=== PATIENT | male | born 1965 | race Caucasian/White ===

== ENCOUNTER → 2017-07-17 | Outpatient (CLI) | payer MEDICARE, SELFPAY ==
[2017-07-17 07:27] LABS: Absolute Lymphocyte Count 2.51 X10^3/ul (0.83-4.51); Absolute Neutrophil Count 1.5 X10^3/uL (2.0-7.7); Basophil# 0.02 X10^3/uL; Basophil% 0.4 % (0-1); Eosinophil# 0.19 X10^3/uL; Eosinophils% 4.1 % (0-5); Hematocrit 40.4 % (40-54); Hemoglobin 14.1 g/dl (13.0-16.5); Lymphocyte # 2.51 X10^3/ul (4.0); Lymphocyte % 53.9 % (19-41); Mean Corp Hgb Conc 34.9 g/gl (32-36); Mean Corpuscular Hgb 35.3 pg (27.0-32.0); Mean Platelet Vol. 10.1 fl (6.2-12.0); Monocyte# 0.46 X10^3/uL; Monocyte% 9.9 % (0-10); Neutrophil # 1.47 X10^3/uL (2.7-7.7); Neutrophil % 31.5 % (47-70); Platelet Count 190 K/mm3 (150-450); RBC Distribution Width CV 12.6 % (11.6-14.6); RBC Distribution Width SD 45.7 fl (35.1-43.9); White Blood Count 4.7 K/mm3 (4.4-11.0)
[2017-07-17 07:30] LABS: POSITIVE COUNT NO; POSITIVE DIFFERENTIAL NO; POSITIVE MORPHOLOGY NO
[2017-07-17 07:40] LABS: Carbamazepine (Tegretol) 8.9 ug/mL (4.0-12.0)
[2017-07-17 07:49] LABS: ALB/GLOB Ratio 1.3 RATIO (0.9-2.4); AST(SGOT) 21 U/L (15-37); Alanine Aminotransfer ALT/SGPT 24 U/L (16-61); Albumin, Serum 3.8 g/dL (3.2-5.0); Alkaline Phosphatase 70 U/L (45-117); Anion Gap 6 (5-15); BUN 20 mg/dL (7-18); BUN/Creat Ratio 14.9 RATIO (10-20); Calcium,Total 8.4 mg/dL (8.5-10.1); Chloride 107 mmol/L (98-107); Cholesterol 235 mg/dL (200); Creatinine, Serum 1.34 mg/dL (0.70-1.30); EST Glomerular Filtration Rate 59 mL/min (>60); Est Glom Filt Rate - Afr Amer 71 mL/min (>60); Glucose 106 mg/dL (74-106); High Density Lipoprotein 39 mg/dL; Potassium 3.8 mmol/L (3.5-5.1); Protein, Total 6.8 g/dL (6.4-8.2); Sodium Level 141 mmol/L (136-145); T4 Total, Thyroxin 3.7 ug/dL (4.5-12.1); Thyroid Stim Hormone (TSH) 3.41 uIU/mL (0.358-3.74); Triglycerides 309 mg/dL; Very Low Density Lipoprotein 62 mg/dL (5-40)
[2017-07-17 08:59] LABS: Hemoglobin A1c 5.4 % (4.2-6.3)
[2017-07-18 09:43] LABS: T3 Total - Triiodothyronine 0.72 ng/mL (0.6-1.81)
== END | disposition home or self-care (01) ==
LOC: LAB 06:23
DX: Z79.899 Other long term (current) drug therapy (principal)
CPT/HCPCS: 36415; 80053; 80061; 80156; 83036; 84436; 84443; 84480; 85025

== ENCOUNTER → 2017-11-07 08:02 | Outpatient (CLI) | payer MEDICARE, SELFPAY ==
[2017-11-07 08:35] LABS: Absolute Neutrophil Count 1.5 X10^3/uL (2.0-7.7); Basophil# 0.03 X10^3/uL; Basophil% 0.6 % (0-1); Eosinophil# 0.21 X10^3/uL; Eosinophils% 4.4 % (0-5); Hematocrit 41.5 % (40-54); Hemoglobin 14.4 g/dl (13.0-16.5); Lymphocyte % 50.6 % (19-41); Mean Corp Hgb Conc 34.7 g/gl (32-36); Mean Corpuscular Hgb 35.1 pg (27.0-32.0); Mean Corpuscular Volume 101.2 fL (80-94); Mean Platelet Vol. 9.9 fl (6.2-12.0); Monocyte# 0.62 X10^3/uL; Monocyte% 13.1 % (0-10); Neutrophil # 1.48 X10^3/uL (2.7-7.7); Neutrophil % 31.3 % (47-70); POSITIVE COUNT NO; POSITIVE DIFFERENTIAL NO; POSITIVE MORPHOLOGY NO; Platelet Count 176 K/mm3 (150-450); RBC Distribution Width CV 12.9 % (11.6-14.6); RBC Distribution Width SD 47.6 fl (35.1-43.9); White Blood Count 4.7 K/mm3 (4.4-11.0)
[2017-11-07 09:00] LABS: ALB/GLOB Ratio 1.2 RATIO (0.9-2.4); AST(SGOT) 19 U/L (15-37); Alanine Aminotransfer ALT/SGPT 29 U/L (16-61); Albumin, Serum 3.9 g/dL (3.2-5.0); Alkaline Phosphatase 82 U/L (45-117); Anion Gap 6 (5-15); BUN 19 mg/dL (7-18); BUN/Creat Ratio 13.1 RATIO (10-20); Calcium,Total 9.1 mg/dL (8.5-10.1); Chloride 106 mmol/L (98-107); Cholesterol 235 mg/dL (200); Creatinine, Serum 1.45 mg/dL (0.70-1.30); EST Glomerular Filtration Rate 54 mL/min (>60); Est Glom Filt Rate - Afr Amer 65 mL/min (>60); Globulin 3.2 g/dL (2.2-4.2); Glucose 116 mg/dL (74-106); High Density Lipoprotein 36 mg/dL; Potassium 4.4 mmol/L (3.5-5.1); Protein, Total 7.1 g/dL (6.4-8.2); Sodium Level 144 mmol/L (136-145); Triglycerides 362 mg/dL; Very Low Density Lipoprotein 72 mg/dL (5-40)
[2017-11-07 09:06] LABS: Carbamazepine (Tegretol) 9.6 ug/mL (4.0-12.0)
[2017-11-07 09:22] LABS: Hemoglobin A1c 5.5 % (4.2-6.3)
== END ==
DX: Z79.899 Other long term (current) drug therapy (principal)
CPT/HCPCS: 36415; 80053; 80061; 80156; 83036; 85025

== ENCOUNTER → 2018-01-02 09:51 | Outpatient (CLI) | payer MEDICARE, SELFPAY ==
[2018-01-02 10:47] LABS: Absolute Lymphocyte Count 1.99 X10^3/ul (0.83-4.51); Absolute Neutrophil Count 1.2 X10^3/uL (2.0-7.7); Basophil# 0.02 X10^3/uL; Basophil% 0.5 % (0-1); Eosinophil# 0.12 X10^3/uL; Eosinophils% 3.2 % (0-5); Hematocrit 41.4 % (40-54); Hemoglobin 14.5 g/dl (13.0-16.5); Lymphocyte # 1.99 X10^3/ul (4.0); Lymphocyte % 52.9 % (19-41); Mean Corpuscular Hgb 35.4 pg (27.0-32.0); Mean Platelet Vol. 9.9 fl (6.2-12.0); Monocyte# 0.38 X10^3/uL; Monocyte% 10.1 % (0-10); Neutrophil # 1.24 X10^3/uL (2.7-7.7); Platelet Count 186 K/mm3 (150-450); RBC Distribution Width CV 12.4 % (11.6-14.6); RBC Distribution Width SD 45.1 fl (35.1-43.9); White Blood Count 3.8 K/mm3 (4.4-11.0)
[2018-01-02 10:48] LABS: POSITIVE COUNT NO; POSITIVE DIFFERENTIAL NO; POSITIVE MORPHOLOGY NO
[2018-01-02 11:25] LABS: Carbamazepine (Tegretol) 8.5 ug/mL (4.0-12.0)
[2018-01-02 11:37] LABS: ALB/GLOB Ratio 1.3 RATIO (0.9-2.4); AST(SGOT) 23 U/L (15-37); Alanine Aminotransfer ALT/SGPT 28 U/L (16-61); Albumin, Serum 3.9 g/dL (3.2-5.0); Alkaline Phosphatase 75 U/L (45-117); Anion Gap 8 (5-15); BUN 18 mg/dL (7-18); BUN/Creat Ratio 13.4 RATIO (10-20); Calcium,Total 9.2 mg/dL (8.5-10.1); Chloride 105 mmol/L (98-107); Creatinine, Serum 1.34 mg/dL (0.70-1.30); EST Glomerular Filtration Rate 59 mL/min (>60); Est Glom Filt Rate - Afr Amer 71 mL/min (>60); Globulin 3.1 g/dL (2.2-4.2); Glucose 106 mg/dL (74-106); Potassium 4.2 mmol/L (3.5-5.1); Sodium Level 142 mmol/L (136-145)
== END ==
PROVIDERS: Family Provider Family Medicine; PCP Family Medicine
DX: Z79.899 Other long term (current) drug therapy (principal)
CPT/HCPCS: 36415; 80053; 80156; 85025

== ENCOUNTER 2020-07-13 11:02 | Outpatient (RCR) | payer MEDICARE, SELFPAY ==
[2016-05-08 12:55] VITALS: BMI 33.1
[2020-07-13] MEDS: COVID-19 VACC, MRNA(PFIZER)/PF 30 MCG/0.3 ML SYRINGE IM (09:31)
[2020-08-03] MEDS: COVID-19 VACC, MRNA(PFIZER)/PF 30 MCG/0.3 ML SYRINGE IM (09:14)
== END 2020-07-13 23:59 ==
LOC: IMMUN 11:02
PROVIDERS: PCP Family Medicine; Visit Provider Family Medicine
DX: Z23 Encounter for immunization (principal)
CPT/HCPCS: 0001A; 0002A; 91300

== ENCOUNTER 2021-12-13 13:32 | Emergency (ER) | payer MEDICARE, MEDICAID, SELFPAY ==
[2021-12-13 13:33] VITALS: BP 137/94; PULSE 88; RESP 16; TEMP 36.2; O2SAT 96; BMI 34.2
--- NOTE | 2021-12-13 13:57 | CT_ITS ---
STUDY: CT ABDOMEN AND PELVIS WITHOUT CONTRAST REASON FOR EXAM: Male, 56 years old. Vomiting and generalized abdominal pain. RADIATION DOSAGE (If Supplied By Facility): CTDIvol = ( 20.09 ) mGy, DLP = ( 1154.60 ) mGycm TECHNIQUE: Transaxial images were obtained from the dome of the diaphragm to the symphysis pubis without oral contrast, and without intravenous contrast. Sagittal and coronal images were reconstructed. Individualized dose optimization techniques were used for this CT. COMPARISON: None. FINDINGS: The visualized lung bases are unremarkable. The visualized portions of the heart are within normal limits. There is decreased attenuation of the liver consistent with steatosis. There are multiple small gallstones. Normal spleen. Normal pancreas. Normal bilateral adrenal glands. Normal right kidney. Normal left kidney. There is a small hiatal hernia. Large amount of fluid is seen within the stomach. Hypodensity medication tablets are seen within the distal stomach. Normal small intestine. Normal colon. The appendix is visualized and appears normal. Normal abdominal aorta. Normal inferior vena cava. Normal retroperitoneum. Mild diffuse bladder wall thickening. There are prostatic calcifications. There is a right-sided inguinal hernia containing adipose tissue. Disc space narrowing and degeneration with spondylosis at the L4-L5 and L5-S1 levels. Loss of the normal lumbar lordosis. CT/Abdomen/Pelvis without Cont IMPRESSION: Multiple small gallstones within the gallbladder lumen. Fatty infiltration of the liver. Large amount of fluid is seen within the gastric lumen. Electronically Signed: Darvin Steve MD at 14:45 EDT ,
--- NOTE | 2021-12-13 13:58 | ED.VIS.GI ---
HPI HPI - GI History of Present Illness Chief Complaint: Abd Pain Detail of Chief Complaint: Abdominal pain that started around noon today Informant: patient Abdominal Pain/Flank Pain Current Severity: 5/10 Narrative Narrative: Patient presents the emergency department complaint of abdominal pain us around noon today. Patient states pain came on suddenly and was in the mid abdomen and diffusely about the entire abdomen. He had 1 episode of nausea and vomiting but currently does not feel nauseated. His last bowel movement was approximately noon and it was formed stool. He denies any blood in the stool. He denies any fevers. He denies urinary symptoms. Pain was a 10 out of 10 but currently a 5 out of 10. He is never had pain like this before. Patient has had prior appendectomy. Prior similar symptoms: No PFSH PFS Medical History (Updated 12/13/21 @ 16:[address] Jie Coffman, DO) Bipolar 1 disorder Chronic kidney disease High cholesterol HTN (hypertension) Home Medications carbamazepine 300 mg capsule,extended release [id number] 300 mg PO BID 05/08/16 [History Last Taken 05/08/16] clonazepam 1 mg tablet 1 mg PO 4X/DAY 05/08/16 [History Last Taken 05/08/16] duloxetine 60 mg capsule,delayed release 60 mg PO BID 05/08/16 [History Last Taken 05/08/16] econazole 1 % topical cream 1 applic topical DAILY 05/08/16 [History Last Taken Unknown] fenofibrate nanocrystallized 48 mg tablet 48 mg PO DAILY 05/08/16 [History Last Taken 05/08/16] lamotrigine 200 mg tablet,extended release 24 hr (Lamictal XR) 200 mg PO DAILY 05/08/16 [History Last Taken 05/08/16] olanzapine 15 mg disintegrating tablet 15 mg PO DAILY 05/08/16 [History Last Taken 05/08/16] omeprazole 20 mg capsule,delayed release 20 mg PO DAILY 05/08/16 [History Last Taken 05/08/16] prednisone 20 mg tablet 60 mg PO DAILY ##15 05/08/16 [Rx Last Taken Unknown] simvastatin 20 mg tablet 20 mg PO QHS 05/08/16 [History Last Taken 05/07/16] venlafaxine 150 mg tablet,extended release 24 hr 150 mg PO DAILY 05/08/16 [History Last Taken 05/08/16] zolpidem 10 mg tablet (Ambien) 10 mg PO QHS 05/08/16 [History Last Taken 05/07/16] Allergy/AdvReac Type Severity Reaction Status Date / Time bupropion [From Wellbutrin] Allergy Other Verified 12/13/21 13:33 clarithromycin [From Biaxin] Allergy Other Verified 12/13/21 13:33 divalproex sodium Allergy Other Verified 12/13/21 13:33 [From Depakote] econazole [From Spectazole] Allergy Other Verified 12/13/21 13:33 fluoxetine [From Prozac] Allergy Other Verified 12/13/21 13:33 ibuprofen AdvReac Nausea/Vom/ Verified 12/13/21 13:33 Diarrhea Social History Smoking Status: Never smoker ROS ROS ED Review of Systems ROS Unobtainable: other Constitutional Constitutional ED: Reports lethargy; Denies chills, fever(s), sweats or weight loss Eyes Eyes: Denies blurry vision, change in vision or diplopia ENT ENT ED: Denies rhinorrhea or sore throat Cardiovascular Cardiovascular: Denies chest pain, orthopnea or racing heartbeat Respiratory/Chest Respiratory/Chest: Reports dyspnea and dyspnea on exertion; Denies cough, orthopnea or sputum Gastrointestinal Gastrointestinal: Reports abdominal pain, nausea and vomiting; Denies diarrhea Genitourinary Genitourinary ED: Denies dysuria, hematuria or urinary frequency Musculoskeletal Musculoskeletal: Denies arthralgias, back pain, myalgias or neck pain Integumentary Denies abscess, Abrasions or rash Neurologic Neurologic: Denies headache(s) or weakness Psychiatric Psychiatric: Denies anxiety, depression or suicidal thoughts Endocrine Endocrinology: Denies polydipsia, polyphagia or polyuria Hematologic/Lymphatic Hematologic/Lymphatic: Denies easy bleeding, easy bruising or lymphadenopathy Allergic/Immunologic Allergic/Immunologic ED: Denies mouth swelling, tongue swelling or urticaria EXAM Physical Exam Const Vital Signs: 12/13/21 13:33 Temperature 97.2 F L Temperature Source Temporal Pulse Rate 88 Respiratory Rate 16 Blood Pressure 137/94 H Blood Pressure Mean 108 Pulse Ox 96 Oxygen Delivery Method Room Air Positive well nourished and well developed General Appearance ED: well developed and NAD HEENT Reports TM's clear and moist mucous membranes normocephalic and atraumatic; Negative for trauma or tenderness Tympanic Membrane ED: Yes TM's clear Eyes PERRL and EOMs intact bilaterally General Eye ED: Negative for pale conjunctiva or scleral icterus Neck no lymphadenopathy, supple and no JVD General: Negative for tenderness Chest Wall inspection of chest normal and palpation of chest normal Chest: Negative for tenderness Resp normal respiratory effort and clear to auscultation bilaterally Effort and Inspection: Negative for respiratory distress or pain with movement Auscultation: Negative for rhonchi, wheezes or diminished lung sounds Cardio regular rate, regular rhythm, S1 normal heart sound, S2 normal heart sound and no murmurs Peripheral Pulses: pulses 2+ throughout GI normal to inspection, nondistended, normoactive bowel sounds, soft to palpation, non-distended and no masses GI Narrative: Mild diffuse tenderness. There is no rebound, rigidity, or peritoneal signs. Back/Spine no CVA tenderness and no thoracic nor lumbar tenderness Extremity normal to inspection General Extremety ED: Negative for edema General Extremity: Negative for edema Neuro oriented x3, CN's II-XII intact bilaterally, no sensory deficits noted and gait normal Sensorium / Orientation: awake, alert, oriented to person, oriented to place and oriented to time Motor Exam: strength 5/5 throughout and strength abnormal Psych mental status grossly normal Skin no rashes or lesions noted and no wounds MDM MDM MDM Narrative Medical decision making narrative: IV line established on arrival. Patient had no desire for pain medication or nausea medicine. Lab work-up showed a normal white count. His AST and ALT were slightly elevated however he had a normal alk phos level. Lactate was normal. Lipase was elevated at 821. Patient had a CT scan of the abdomen pelvis that showed gallstones and may be a pill fragment within the stomach itself. Patient had a gallbladder ultrasound that showed a normal thickness of the gallbladder wall and normal common bile duct. He had multiple small gallstones. There was trace pericholecystic fluid. Patient's pain mostly resolved. On exam he really has minimal discomfort. I discussed case with general surgeon on-call Dr. Weber who felt patient could follow-up as an outpatient with their office. I did advise patient to return if worsening pain, fever, vomiting, or condition should worsen anyway. Lab Data Attestation: I reviewed the patient's lab results. Labs: Laboratory Results - last 24 hr 12/13/21 12/13/21 12/13/21 14:15 14:15 14:15 WBC 6.5 RBC 3.61 L Hgb 13.3 Hct 36.9 L MCV 102.2 H MCH 36.8 H MCHC 36.0 RDW Std Deviation 46.6 H RDW Coeff of Mt 12.5 Plt Count 181 MPV 9.7 Immature Gran % (Auto) 0.500 Neut % (Auto) 60.8 Lymph % (Auto) 25.1 Crowley % (Auto) 11.3 H Eos % (Auto) 1.8 Baso % (Auto) 0.5 Absolute Neuts (auto) 4.0 Absolute Lymphs (auto) 1.64 Nucleated RBC % 0 Sodium 137 Potassium 4.1 Chloride 104 Carbon Dioxide 29.0 Anion Gap 4 L BUN 19 H Creatinine 1.38 H Estim Creat Clear Calc 67.84 Est GFR (MDRD) Af Amer 68 Est GFR (MDRD) Non-Af 56 L BUN/Creatinine Ratio 13.8 Glucose 112 H Lactic Acid 0.9 Calcium 8.9 Total Bilirubin 0.70 AST 177 H ALT 119 H Alkaline Phosphatase 103 Total Protein 6.5 Albumin 3.5 Globulin 3.0 Albumin/Globulin Ratio 1.2 Lipase 821 H Radiography Diagnostic Testing: Clinical Impression(s) from Imaging Studies Abdomen/Pelvis CT 12/13/21 13:57 IMPRESSION: Multiple small gallstones within the gallbladder lumen. Fatty infiltration of the liver. Large amount of fluid is seen within the gastric lumen. Electronically Signed: Darvin Steve MD at 14:45 EDT , Gallbladder Ultrasound 12/13/21 14:51 IMPRESSION: Multiple small gallstones. Trace amount of pericholecystic fluid. Fatty infiltration of the liver. Electronically Signed: Darvin Steve MD at 15:49 EDT , Discharge Plan Triage Chief Complaint: Abd Pain ED Provider: Jie Coffman Dx/Rx/DC Orders Clinical Impression: Abdominal pain, Cholelithiasis Instructions: ED Gallstones with Biliary Colic, ED Abdominal Pain Unkn Cause Male... Prescriptions: No Action prednisone 20 MG tablet 60 mg PO DAILY Qty: 15 0RF clonazepam 1 MG tablet 1 mg PO 4X/DAY econazole 1 APPLIC Tube 1 applic topical DAILY simvastatin 20 MG tablet 20 mg PO QHS omeprazole 20 MG capsule 20 mg PO DAILY olanzapine 15 MG Tab.Rapdis 15 mg PO DAILY zolpidem [Ambien] 10 MG tablet 10 mg PO QHS duloxetine 60 MG Capsule.Dr 60 mg PO BID carbamazepine 300 MG Cpmp.12hr 300 mg PO BID fenofibrate nanocrystallized 48 MG tablet 48 mg PO DAILY venlafaxine 150 MG Tab.Er.24 150 mg PO DAILY lamotrigine [Lamictal XR] 200 MG Tab.Er.24 200 mg PO DAILY Primary Care Provider: Jose R Hill Referrals: Jose R Hill MD [Primary Care Provider] - Felipe Weber MD [Med Staff - Active Staff] - 3-5 Days Disposition Disposition: Home, Self Care
[2021-12-13] MEDS: 0.9% Normal Saline 1,000 ML 125 ML IV (14:13)
[2021-12-13 14:24] LABS: Absolute Lymphocyte Count 1.64 X10^3/uL (0.83-4.51); Basophil# 0.03 X10^3/uL; Basophil% 0.5 % (0-1); Eosinophil# 0.12 X10^3/uL; Eosinophils% 1.8 % (0-5); Hematocrit 36.9 % (40-54); Hemoglobin 13.3 g/dL (13.0-16.5); Lymphocyte # 1.64 X10^3/ul (0.83-4.51); Lymphocyte % 25.1 % (19-41); Mean Corpuscular Hgb 36.8 pg (27.0-32.0); Mean Corpuscular Volume 102.2 fL (80-94); Mean Platelet Vol. 9.7 fl (6.2-12.0); Monocyte# 0.74 X10^3/uL; Monocyte% 11.3 % (0-10); NRBC Flagged by Analyzer 0 % (0-5); Neutrophil # 3.98 X10^3/uL (2.7-7.7); Neutrophil % 60.8 % (47-70); Platelet Count 181 K/mm3 (150-450); RBC Distribution Width CV 12.5 % (11.6-14.6); RBC Distribution Width SD 46.6 fl (35.1-43.9); Red Blood Count 3.61 M/mm3 (4.6-6.2); White Blood Count 6.5 K/mm3 (4.4-11.0)
[2021-12-13 14:40] LABS: ALB/GLOB Ratio 1.2 RATIO (0.9-2.4); AST(SGOT) 177 U/L (15-37); Alanine Aminotransfer ALT/SGPT 119 U/L (16-61); Albumin, Serum 3.5 g/dL (3.2-5.0); Alkaline Phosphatase 103 U/L (45-117); Anion Gap 4 (5-15); BUN 19 mg/dL (7-18); BUN/Creat Ratio 13.8 RATIO (10-20); Calcium,Total 8.9 mg/dL (8.5-10.1); Chloride 104 mmol/L (98-107); Creatinine, Serum 1.38 mg/dL (0.70-1.30); EST Glomerular Filtration Rate 56 mL/min (>60); Est Glom Filt Rate - Afr Amer 68 mL/min (>60); Estimated Creatinine Clearance 67.84 ml/min; Glucose 112 mg/dL (74-106); Lipase 821 U/L (73-393); Potassium 4.1 mmol/L (3.5-5.1); Protein, Total 6.5 g/dL (6.4-8.2); Sodium Level 137 mmol/L (136-145)
[2021-12-13 14:47] LABS: Lactic Acid 0.9 mmol/L (0.4-1.9)
--- NOTE | 2021-12-13 14:51 | US_ITS ---
STUDY: ABDOMINAL ULTRASOUND - RIGHT UPPER QUADRANT REASON FOR VISIT: Male, 56 years old abdominal pain TECHNIQUE: Ultrasound evaluation of the right upper quadrant was performed with real-time and static de los santos-scale imaging. TECHNICAL QUALITY: Adequate. COMPARISON: Comparison is made with prior CT scan abdomen and pelvis done earlier today. FINDINGS: Liver: The liver measures 16.7 cm. There is increased echogenicity consistent with fatty infiltration. The bile ducts are within normal limits. There is hepatic color flow. The direction of portal flow is hepatopetal. There is no demonstrated mass lesion. Gallbladder: Normal distended gallbladder. The gallbladder wall measures 3 mm. There is a negative sonographic Teixeira''s sign. There is a small amount of pericholecystic fluid. There are multiple echogenic structures within the gallbladder, consistent with multiple gallstones. Common Bile Duct (C.B.D.): The common bile duct measures 3. mm. Pancreas: Normal size of the head, body and tail of the pancreas. There is normal echogenicity of the pancreas. There is no demonstrated pancreatic mass or cyst. Right Kidney: Normal size of the right kidney. The right kidney measures 11.3 cm x 6.1 cm x 5.1 cm. Normal renal cortex. The right cortex measures 1.5 cm. There is no demonstrated renal mass or cyst. There is no right hydronephrosis. US/Gallbladder IMPRESSION: Multiple small gallstones. Trace amount of pericholecystic fluid. Fatty infiltration of the liver. Electronically Signed: Darvin Steve MD at 15:49 EDT ,
[2021-12-13 16:16] VITALS: BP 138/94
== END 2021-12-13 16:17 | disposition home or self-care (01) ==
PROVIDERS: Emergency Provider Emergency Medicine; PCP Family Medicine; Visit Provider Emergency Medicine
DX: K80.20 Calculus of gallbladder without cholecystitis without obstruction (principal); N18.9 Chronic kidney disease, unspecified; I12.9 Hypertensive chronic kidney disease with stage 1 through stage 4 chronic kidney disease, or unspecified chronic kidney disease; E78.00 Pure hypercholesterolemia, unspecified; Z90.49 Acquired absence of other specified parts of digestive tract; Z79.899 Other long term (current) drug therapy
CPT/HCPCS: 74176; 76705; 80053; 83605; 83690; 85025; 96360; 96361; 99282; J7030; A4216

== ENCOUNTER → 2021-12-19 | Outpatient (CLI) | payer MEDICARE, MEDICAID, SELFPAY ==
[2021-12-19 14:19] LABS: AST(SGOT) 31 U/L (15-37); Alanine Aminotransfer ALT/SGPT 85 U/L (16-61); Albumin, Serum 3.7 g/dL (3.2-5.0); Alkaline Phosphatase 105 U/L (45-117); Bilirubin, Direct 0.13 mg/dL (0.00-0.30); Globulin 3.1 g/dL (2.2-4.2); Lipase 222 U/L (73-393); Protein, Total 6.8 g/dL (6.4-8.2)
== END | disposition home or self-care (01) ==
LOC: PAVLAB 13:44
PROVIDERS: PCP Family Medicine; Referring Provider Surgery; Visit Provider Surgery
DX: R74.8 Abnormal levels of other serum enzymes (principal); R94.5 Abnormal results of liver function studies
CPT/HCPCS: 36415; 80076; 83690

== ENCOUNTER 2022-01-04 05:48 | Day surgery (SDC) | payer MEDICARE, MEDICAID, SELFPAY ==
[2022-01-04] VITALS (8 sets, daily range): BP systolic 120–145; BP diastolic 81–94; PULSE 68–86; RESP 16; TEMP 36.6–37; O2SAT 92–98; BMI 31.1
--- NOTE | 2022-01-04 06:12 | EKG12_ITS ---
Test Reason : PRE-OP Blood Pressure : / mmHG Vent. Rate : 065 BPM Atrial Rate : 065 BPM P-R Int : 208 ms QRS Dur : 108 ms QT Int : 392 ms P-R-T Axes : 046 076 058 degrees QTc Int : 407 ms Normal sinus rhythm Incomplete left bundle branch block Borderline ECG No previous ECGs available Confirmed by CLAUDIA SINGH, EAMON ([id number]), makeup editor YESI CORREIA ([id number]) on 01/11/2022 12:44:15 PM Referred By: Julieta Escobar Confirmed By:EAMON TAYLOR MD
[2022-01-04] MEDS: Lactated Ringers 1,000 ML 15 ML IV ×2 (06:15→08:46)
--- NOTE | 2022-01-04 07:18 | PCM.HP.BLA ---
History and Physical Date of Admission: 01/04/22 Date of Service:? 12/19/21 MR#: [id number] Acct: [id number] Name:LIONEL HATHAWAY Rep #: [id number] : 1965 ? ? Provider: Dr. Julieta Escobar MD Age/Sex:? 56/M ? ? Location: [facility] Status: Signed Intake Vital Signs ? 12/13/2212:33 12/19/2212:27 Height 6 ft 2 in 6 ft 2 in Weight: 266 lb 12.149 oz 262 lb BMI 34.2 33.6 BP 137/94 H 118/80 Blood Pressure Location ? Rt brachial Position ? Sitting Respiration 16 16 Pulse 88 56 L Pulse Source ? Monitor Temp 97.2 F L 97.5 F L Temp Source Temporal Temporal Pulse Oximetry (%) 96 96 Oxygen Delivery Method ? room air Intake Visit Reasons:?GALLSTONES Chief Complaint: gallstones Tableau Analyst Required: No Is patient in pain?: No Allergies bupropion [From Wellbutrin] Allergy (Verified 12/19/21 13:28) Otherclarithromycin [From Biaxin] Allergy (Verified 12/19/21 13:28) Otherdivalproex sodium [From Depakote] Allergy (Verified 12/19/21 13:28) Othereconazole [From Spectazole] Allergy (Verified 12/19/21 13:28) Otherfluoxetine [From Prozac] Allergy (Verified 12/19/21 13:28) Otheribuprofen Adverse Reaction (Verified 12/19/21 13:28) Nausea/Vom/Diarrhea Medications carbamazepine 300 mg capsule,extended release [id number] 300 mg PO BID 05/08/16 [History Confirmed 12/19/21] clonazepam 1 mg tablet 1 mg PO 4X/DAY 05/08/16 [History Confirmed 12/19/21] duloxetine 60 mg capsule,delayed release 60 mg PO BID 05/08/16 [History Confirmed 12/19/21] econazole 1 % topical cream 1 applic topical DAILY 05/08/16 [History Confirmed 12/19/21] fenofibrate nanocrystallized 48 mg tablet 48 mg PO DAILY 05/08/16 [History Confirmed 12/19/21] lamotrigine 200 mg tablet,extended release 24 hr (Lamictal XR) 200 mg PO DAILY 05/08/16 [History Confirmed 12/19/21] olanzapine 15 mg disintegrating tablet 15 mg PO DAILY 05/08/16 [History Confirmed 12/19/21] omeprazole 20 mg capsule,delayed release 20 mg PO DAILY 05/08/16 [History Confirmed 12/19/21] prednisone 20 mg tablet 60 mg PO DAILY #15 TABLETS 05/08/16 [Rx Confirmed 12/19/21] simvastatin 20 mg tablet 20 mg PO QHS 05/08/16 [History Confirmed 12/19/21] venlafaxine 150 mg tablet,extended release 24 hr 150 mg PO DAILY 05/08/16 [History Confirmed 12/19/21] zolpidem 10 mg tablet (Ambien) 10 mg PO QHS 05/08/16 [History Confirmed 12/19/21] PFSH Medical History?(Updated 12/21/21 @ 00:02 by Duke Banks) Bipolar 1 disorder Chronic kidney disease High cholesterol HTN (hypertension) Surgical History?(Updated 12/19/21 @ 13:25 by Ruby Madison) S/P appendectomy Family History?(Updated 12/19/21 @ 13:26 by Ruby Madison) Father Cancer ?? ? prostate cancer, skin cancer HypertensionMother DiabetesSister Kidney disease Seizures Social History?(Updated 12/19/21 @ 13:27 by Ruby Madison) Smoking Status:? Never smoker alcohol intake:? never substance use type:? does not use HPI HPI HPI: LIONEL SOTO, is a 56 M who presents to the office today for pain/cholelithiasis, elevated liver function/lipase.? Patient was seen in the ER at that time he did have some elevation of LFTs and lipase patient's pain did resolve patient's ultrasound of the gallbladder showed normal wall, gallstones, normal common bile duct, no pericholecystic fluid.? Patient's white blood count is within normal limits with no shift.? Patient's pain did improve while in the ER.? Patient states he has not had previous pain like that again.? He states he may occasionally get some sharp abdominal pain but he points to more of the lower abdomen and does not really related to eating.? Patient has been able to eat a normal diet states that today he had [employer] mae double cheeseburger and onion rings without any increased discomfort.? Patient does have reflux disease on medications for which is controlled. ROS General General: Yes fatigue; No weight change, appetite, colon cancer or breast cancer HEENT HEENT: No difficulty swallowing, eye injury, eye surgery, swollen glands or hoarseness Endo Endocrine: No thyroid disease, diabetes mellitus, thyroid cancer, Hair loss, heat intolerance or cold intolerance Skin Skin: No rash or changing moles Musc Musculoskeletal: Yes arthritis; No back problems, rheumatoid arthritis, gout or joint pain Cardio Cardiovascular: Yes high blood pressure; No murmur, pacemaker, heart disease, atrial fibrillation, heart attack, heart stent, palpitations, shortness of breat with exertion or chest pain Psych Psychiatric: Yes depression and anxiety; No hearing voices Additional Details: bi-polar Resp Respiratory: No shortness of breath, No sleep apnea, Yes cough, No COPD, No asthma, No emphysema and No wheezing Gastro Gastrointestinal: Yes abdominal pain, Yes nausea or vomiting, No diarrhea, Yes constipation, No blood in stool, No acid reflux, Yes hemorrhoids, No ulcers, Yes gallbladder problem and No black,tarry stools Vel Hematologic: No blood thinners, No blood disorders, No bleeding, Yes anemia and No blood clots Neuro Neurologic: No numbness and No tingling Exam Const General: cooperative, healthy appearing and no acute distress [facility] Head: normal to inspection Resp Effort & Inspection: normal respiratory effort Cardio Rate: regular rate GI Inspection: non-distended Palpation: soft, no guarding, no hernias and nontender Skin General: no rashes or lesions noted Neuro General: patient oriented x3 Extrem General: no clubbing, cyanosis or edema Psych Affect: normal affect Assessment and Plan Assessment and Plan (1) Cholelithiasis: ?Status:?Inactive (2) Abdominal pain: ?Status:?Inactive (3) Elevated LFTs: ?Status:?Acute (4) Elevated lipase: ?Status:?Acute ? ? ? Orders: Orders Lipase 12/19/21 R74.8 - Abnormal levels of other serum enzymes, R79.89 - Other specified abnormal findings of blood chemistry ? Liver Profile 12/19/21 R79.89 - Other specified abnormal findings of blood chemistry ? Plan Reviewed CT and ultrasound with the patient.? When patient was ER he did have elevated AST and ALT along with elevated lipase.? Patient's pain did improve in the ER and patient was sent home.? This is suspicious for choledocholithiasis which passed on its own.? Gallbladder ultrasound does show multiple gallstones.? We will recheck lipase and liver profile to help with timing of laparoscopic cholecystectomy.? Encourage patient to avoid fatty greasy foods. Reviewed the anatomy with the patient and discussed the procedure: laparoscopic cholecystectomy with possible cholangiograms, possible open. Review risks including but not limited to bleeding, infection, hernia, bile leak, retained gallstones requiring another procedure ERCP- Endoscopic Retrograde Cholangiopancreatography, injury to another organ (bile ducts, common bile duct, small bowel, etc.) and conversion to an open procedure. All questions were answered. Julieta Escobar M.D. Pager: [phone] [facility] [address] [place] [address], [address] [place] [address] Office: [phone] Coding Level of Care Code Off vis,new,level 3 Diagnoses Cholelithiasis? K80.20 Abdominal pain? R10.9 Elevated LFTs? R79.89 Elevated lipase? R74.8 12/21/21 1241 <Electronically signed by Julieta Escobar MD> Date Julieta Escobar MD
--- NOTE | 2022-01-04 07:30 | GALL_PTH ---
PATIENT: LIONEL SOTO LOC: [facility] [place] U#:[id number] AGE/SX: 56/M ROOM: RE01/04/[address]: Dr. Julieta Escobar MD : 1965 BED: DIS: 01/04/2022 SPEC #: [id number] RECD: 01/04/22 13:43 STATUS: DIANA RESmita #: [id number] AURELIANO: 01/04/22 07:[address]: Julieta Escobar DEPT: SURGICAL PATHOLOGY RECD BY: Li Ceballos ENTERED: 01/07/22 08:39 SP TYPE: LINA DUMAS DR: Dr. Jose R Hill MD Tissues: Gallbladder, NOS Procedures: Surgery Specimen Level III HEADER OPERATION: Laparoscopic cholecystectomy with IOC PRE-OP DIAGNOSIS: Cholelithiasis, abdominal pain, elevated LFTs, elevated lipase TISSUE SUBMITTED: Gallbladder MICROSCOPIC DIAGNOSIS Gallbladder, cholecystectomy: Chronic cholecystitis and cholelithiasis. SJ:alida 01/08/2022 MICROSCOPIC DESCRIPTION Slides are reviewed. GROSS DESCRIPTION Received is one container labeled with the patient's name and designated gallbladder. The specimen consists of a gallbladder measuring 9 cm in length and up to 3.5 cm in diameter. The specimen is previously, partially opened. The external surface is pink-guerra, smooth and glistening for the most part. Focally it is granular, hemorrhagic and contains cautery artifact. The gallbladder contains small amount of hemorrhagic bile. Present in the container are multiple fragments of exnmpzfv-[id number] stones and stone fragments measuring in aggregate 7 x 8 x 3 cm and 1 to 2.5 cm in greatest dimension. The mucosa is bile-stained and without any mass lesions. The gallbladder wall measures up to 0.5 cm in thickness. Port Surveyor sections from the gallbladder and the cystic duct are submitted in one cassette. / FREDERICK:alida 01/07/2022 TC:3 CPT: 78987
[2022-01-04] MEDS: Cefotetan 2 GM in 0.9% NS 100 ML IV (07:38)
--- NOTE | 2022-01-04 07:53 | RAD_ITS ---
STUDY: INTRAOPERATIVE CHOLANGIOGRAM. REASON FOR EXAM: Male, 56 years old. LAP WU WITH IOC FLUOROSCOPY TIME (if supplied): ( 9.8 seconds ) minutes/seconds. A cine loop of 38 images was submitted. TECHNIQUE: Intraoperative cholangiogram was performed by the surgeon. Imaging was submitted. COMPARISON: None. FINDINGS: The intrahepatic biliary ducts are unremarkable. The common bile duct is not dilated. No intraluminal filling defect is seen. RAD/Cholangiogram/ O R,Initial IMPRESSION: Unremarkable intraoperative cholangiogram. Electronically Signed: Darvin Steve MD at 9:06 EDT ,
[2022-01-04] MEDS: Bupivacaine 0.25% 30 ML Vial (09:49)
--- NOTE | 2022-01-04 09:49 | OP.PCM_ITS ---
Report of Operation Date of Procedure: 01/04/22 Pre-Operative Diagnosis: Cholelithiasis, elevated liver functions Post-Operative Diagnosis: Acute cholecystitis Surgery/Procedure Performed:: Laparoscopic cholecystectomy with cholangiograms Surgeon: Julieta Escobar assurance services manager health care: Ajit Morales Type of Anesthesia: General/Supplemental Anesthesiologist: Shai Dockery Special Medications: Cefotetan 2 g IV x1 Specimen's removed: Gallbladder and stones Estimated Blood Loss (mL): 30 cc Description of Procedure: Indications: this is a 56 year-old male who developed abdominal pain/nausea/vomiting and had elevated liver functions in the ER and on workup was found to have cholelithiasis, with a normal common bile duct. Laparoscopic cholecystectomy was elected. Description procedure: The patient was placed on operating table in supine position. A timeout was completed verifying correct patient, procedure, site, position and special equipment prior to beginning procedure. General Anesthesia was induced. The abdomen was prepped and draped in usual sterile fashion. An incision was made in the natural skin line above the umbilicus. The fascia was elevated and incised. The peritoneum was elevated and incised. Entry into the peritoneum was confirmed visually and no bowel was noted in the vicinity of the incision. Flores trocar was placed. The abdomen was insufflated with carbon dioxide to a pressure of 12-15 mmHg. Patient tolerated insufflation well. The laparoscope was then inserted and abdomen inspected. No injuries from initial trocar placement were noted. Additional trochars were then inserted in the following locations 5 mm trocar in the epigastrium and 2 more 5 mm trochars along the right costal margin. The abdomen was inspected no abnormalities were found. The table is placed in reverse Trendelenburg position with the right side up. The adhesions between the gallbladder and omentum were lysed sharply. The dome of the gallbladder was grasped with atraumatic grasper passed through the lateral port and retracted over the dome of the liver. Infundibulum was then grasped with atraumatic grasper through the midclavicular port and retracted to the right lower quadrant. This maneuver exposed Calot's triangle. The peritoneum overlying the gallbladder infundibulum was then incised and cystic duct and artery identified and circumferentially dissected. Mittal catheter was attempted for cholangiograms, the Ranfac catheter was used for cholangiograms. A separate stab incision was made in the right upper quadrant to accommodate the catheter. The cholangiogram showed good filling of the common bile duct into the duodenum with no filling defects, good filling of the right and left bile ducts as well. The cystic duct and artery were then doubly clipped and divided close to the gallbladder. The gallbladder then dissected from its peritoneal attachments by electrocautery, gallbladder was intrahepatic in the mid gallbladder to the fundus and due to the acute inflammation in no plane between the gallbladder and liver. Stones were removed as incidental injury to the gallbladder wall due to dense adhesions/lack of the plane between the gallbladder and liver. The stones placed in endoscopic retrieval bag as the rest of the gallbladder was tediously removed from the liver. Gallbladder was also placed in endoscopic retrieval bag. Erby was used on the liver for hemostasis as there was diffuse oozing of the gallbladder fossa. Hemostasis was checked and the gallbladder and contained stones were removed using the endoscopic retrieval bag through the umbilical port. The gallbladder is passed off table as specimen. The gallbladder fossa was irrigated with saline and hemostasis obtained. Randy was also placed in the gallbladder fossa. There is no evidence of bleeding from the gallbladder fossa or cystic artery leakage of bile from the cystic duct stump. The supraumbilical incision was enlarged to accommodate removal of the gallbladder stone/wall. Secondary trochars removed under direct vision. No bleeding was noted the trocar sites. The laparoscope was withdrawn and umbilical trocar removed. The abdomen was allowed to collapse. The fascia of the 12 mm trocar was closed with 2 [id number] 0 Vicryl suture. The skin was closed with sutures of 4-0 Monocryl and Steri-Strips. The patient was extubated. The patient tolerated procedure well and was taken to the postanesthesia care unit in stable condition. Complications none
--- NOTE | 2022-01-04 09:53 | DCINST_ITS ---
Discharge Instructions Diet Discharge Diet: Light diet - advance as tolerated Activity Discharge Activity: May Not Drive (while taking narcotic pain medications.) May shower in (days): 1 Lifting Restrictions: no lifting >20 lbs x 2 wks, no strenuous exercise for 4 wks Dressing / Incision Call your doctor if your incision/area has: Continuous Slow Oozing, Sudden Increased Bleeding, Increased Pain/ Swelling, Increased Redness, Foul Smelling Discharge and Swelling at the incision site Call your doctor if you observe: Fever of 101 or Higher Remove Dressing in: 2 days Cleanse incision/area with: Soap & Water Additional Dressing/Incision Instructions:: Steri-Strips will fall off in 7 to 10 days, if they do not fall off okay to remove after 10 days. Follow Up Care Please Follow Up With: Julieta Escobar MD When: Call the office for a follow-up appointment 2 weeks; after 5 PM and on the weekends call [phone] with any concerns. Test Results: Test results from this visit will be discussed in further detail at your follow- up appointment, if applicable. Discharge Plan Admission Attending Provider: Julieta Escobar Primary Care Provider: Jose R Hill Discharge Orders/Prescriptions Prescriptions: New hydrocodone-acetaminophen 5-325 mg tablet 1 tab PO Q6H PRN (Reason: pain) 3 Days Qty: 14 0RF Continued clonazepam 1 MG tablet 1 mg PO QHS econazole 1 APPLIC cream 1 applic topical DAILY omeprazole 20 MG capsule 20 mg PO DAILY olanzapine 15 MG tablet,disintegrating 20 mg PO QHS zolpidem [Ambien] 10 MG tablet 10 mg PO QHS duloxetine 60 MG capsule,delayed release(DR/EC) 60 mg PO BID carbamazepine 300 MG capsule, ER multiphase 12 hr 600 mg PO BID fenofibrate nanocrystallized 48 MG tablet 48 mg PO DAILY venlafaxine 150 MG tablet extended release 24hr 150 mg PO DAILY lamotrigine 150 mg Tablet 300 mg PO QHS atorvastatin 80 mg Tablet 80 mg PO QHS lisinopril 10 mg Tablet 10 mg PO DAILY docusate sodium 100 mg Capsule 200 mg PO BID ferrous sulfate 27 mg iron Tablet 27 mg PO DAILY vitamin F49-[id number] acid 500-400 mcg Tablet 1 tab PO DAILY Rx Instructions: administer with a meal Referrals / Follow Up: Jose R Hill MD [Primary Care Provider] - Disposition Disposition (needs filled in before D/C Order can be placed): Home, Self Care
== END 2022-01-04 12:23 | disposition home or self-care (01) ==
LOC: SDC 05:48 → AC 05:48
PROVIDERS: PCP Family Medicine; Referring Provider Surgery; Visit Provider Surgery
PROC: (CPT 47610; principal; 2022-01-04 07:10)
DX: K80.10 Calculus of gallbladder with chronic cholecystitis without obstruction (principal); F31.9 Bipolar disorder, unspecified; S36.12 Injury of gallbladder; K21.9 Gastro-esophageal reflux disease without esophagitis; E78.00 Pure hypercholesterolemia, unspecified; I10 Essential (primary) hypertension; E61.1 Iron deficiency; Z79.899 Other long term (current) drug therapy; X58.XXXA Exposure to other specified factors, initial encounter
CPT/HCPCS: 47563; 74300; 76000; 88304; 93005; J7120; J2405

== ENCOUNTER → 2023-10-20 | Outpatient (CLI) | payer MEDICARE, MEDICAID, SELFPAY | END | disposition home or self-care (01) | LOC: LABSPEC 15:25 | PROVIDERS: PCP Family Medicine; Visit Provider Otolaryngology Otolaryngology/Facial Plastic Surgery | DX: J02.9 Acute pharyngitis, unspecified (principal) | CPT/HCPCS: 87070 ==

== ENCOUNTER 2023-12-17 11:41 | Emergency (ER) | payer MEDICARE, MEDICAID, SELFPAY ==
[2023-12-17 11:42] VITALS: BP 133/78; PULSE 80; RESP 16; TEMP 35.9; O2SAT 98; BMI 30.9
--- NOTE | 2023-12-17 12:02 | EKG12_ITS ---
Test Reason : CP Blood Pressure : / mmHG Vent. Rate : 071 BPM Atrial Rate : 071 BPM P-R Int : 210 ms QRS Dur : 114 ms QT Int : 366 ms P-R-T Axes : 039 058 049 degrees QTc Int : 397 ms Sinus rhythm with 1st degree A-V block Incomplete left bundle branch block Borderline ECG Confirmed by SUSAN SINGH, BALWINDER ([id number]), rewrite editor DAISY AREVALO ([id number]) on 12/19/2023 6:44:12 AM Referred By: Young Bradshaw Confirmed By:JOSE DAVIS MD
--- NOTE | 2023-12-17 12:03 | EDS_ITS ---
HPI History of Present Illness Chief Complaint: Chest Pain Informant: patient Narrative Narrative: 58-year-old male presenting to the emergency room with a chief complaint of chest pain. Patient states the center of his chest and just over into the left breast area is very sore to touch. He notes that it is worse with breathing. He denies any known trauma to it. He denies any nausea vomiting or belching. No rash. He states that he has not had any change in his chronic lower extremity swelling. He notes normal bowel movements and urination. He denies any change in his chronic mild cough. No fevers. No prior history of DVT PE. [facility] Medical History Cognitive communication deficit Wears glasses Arthritis Low iron Restless legs Back pain Injury of head and neck Syncope Dietary restriction Oral hygiene poor History of hiatal hernia Bleeding hemorrhoid History of IBS Gastric reflux Non-smoker Shortness of breath on exertion Chronic cough Leg cramps History of pain when walking History of edema Decay, teeth High cholesterol HTN (hypertension) Bipolar 1 disorder Chronic kidney disease Home Medications ?Medication ?Instructions ?Recorded ?Last Taken ?Type carbamazepine 300 mg 600 mg PO BID 05/08/16 05/08/16 History capsule,extended release [id number] clonazepam 1 mg tablet 1 mg PO QHS 05/08/16 05/08/16 History duloxetine 60 mg capsule,delayed 60 mg PO BID 05/08/16 05/08/16 History release econazole 1 % topical cream 1 applic topical DAILY 05/08/16 Unknown History fenofibrate nanocrystallized 48 mg 48 mg PO DAILY 05/08/16 05/08/16 History tablet olanzapine 15 mg disintegrating 20 mg PO QHS 05/08/16 05/08/16 History tablet omeprazole 20 mg capsule,delayed 20 mg PO DAILY 05/08/16 05/08/16 History release venlafaxine 150 mg tablet,extended 150 mg PO DAILY 05/08/16 05/08/16 History release 24 hr zolpidem 10 mg tablet (Ambien) 10 mg PO QHS 05/08/16 05/07/16 History atorvastatin 80 mg tablet 80 mg PO QHS 12/28/21 Unknown History docusate sodium 100 mg capsule 200 mg PO BID 12/28/21 Unknown History ferrous sulfate 27 mg iron tablet 27 mg PO DAILY 12/28/21 Unknown History lamotrigine 150 mg tablet 300 mg PO QHS 12/28/21 Unknown History lisinopril 10 mg tablet 10 mg PO DAILY 12/28/21 Unknown History vitamin B12 500 mcg-folic acid 400 1 tab PO DAILY 12/28/21 Unknown History mcg tablet cholecalciferol (vitamin D3) 25 25 mcg PO .weekly 01/16/22 Unknown History mcg (1,000 unit) capsule Allergy/AdvReac Type Severity Reaction Status Date / Time bupropion (From Wellbutrin) Allergy Other Verified 12/17/23 11:42 clarithromycin (From Biaxin) Allergy Other Verified 12/17/23 11:42 divalproex sodium (From Allergy Other Verified 12/17/23 11:42 Depakote) econazole (From Spectazole) Allergy Other Verified 12/17/23 11:42 fluoxetine (From Prozac) Allergy Other Verified 12/17/23 11:42 ibuprofen AdvReac Nausea/Vom/ Verified 12/17/23 11:42 Diarrhea Family History Father Cancer prostate cancer, skin cancer Hypertension Mother Diabetes Sister Kidney disease Seizures Surgical History S/P laparoscopic cholecystectomy (~12/2021) History of bone marrow biopsy Hx of colonoscopy Hx of esophagogastroduodenoscopy History of excision of lesion S/P appendectomy Social History Smoking Status: Never smoker alcohol intake: never substance use type: does not use ROS ROS ED Constitutional Constitutional ED: Denies chills, fever(s) or weight loss Eyes Eyes: Denies change in vision or diplopia ENT ENT ED: Denies ear pain, rhinorrhea or sore throat Cardiovascular Cardiovascular: Reports chest pain; Denies orthopnea, palpitations or racing heartbeat Respiratory/Chest Respiratory/Chest: Denies cough, dyspnea or orthopnea Gastrointestinal Gastrointestinal: Denies abdominal pain, diarrhea, nausea or vomiting Genitourinary Genitourinary ED: Denies dysuria, hematuria or urinary frequency Musculoskeletal Musculoskeletal: Denies arthralgias or myalgias Integumentary Denies abscess or rash Neurologic Neurologic: Denies headache(s) or weakness Psychiatric Psychiatric: Denies anxiety, depression, suicidal ideation or suicidal thoughts Endocrine Endocrinology: Denies polydipsia, polyphagia or polyuria Allergic/Immunologic Allergic/Immunologic ED: Denies mouth swelling, tongue swelling or urticaria EXAM Physical Exam Const Vital Signs: 12/17/23 11:42 12/17/23 11:57 Temperature 96.7 F L Temperature Source Temporal Pulse Rate 80 Respiratory Rate 16 Respiratory Effort Normal Blood Pressure 133/78 H Blood Pressure Mean 96 Pulse Ox 98 Oxygen Delivery Method Room Air Positive well nourished, well developed and obese General Appearance ED: well developed and NAD Nutritional Appearance: obese HEENT Reports normocephalic, head/scalp atraumatic and moist mucous membranes Eyes PERRL and EOMs intact bilaterally Neck no lymphadenopathy, supple and no JVD Chest Wall Chest Narrative: Center manubrium over onto the left costochondral mid ribs is tender to palpation. Resp normal respiratory effort and clear to auscultation bilaterally Cardio regular rate, regular rhythm and no murmurs GI normal to inspection, nondistended, normoactive bowel sounds and non-tender Palpation: soft Back/Spine no CVA tenderness and normal ROM Extremity normal to inspection General Extremety ED: Negative for edema General Extremity: Negative for edema Neuro oriented x3 and CN's II-XII intact bilaterally Sensorium / Orientation: alert Motor Exam: strength 5/5 throughout Psych mental status grossly normal Mood & Affect: Negative for depressed or tearful Skin no rashes or lesions noted and no wounds MDM MDM MDM Narrative Medical decision making narrative: Differential diagnosis includes but not limited to ACS, costochondritis, pleural effusion pleurisy GERD pulmonary embolism aortic dissection pneumonia pneumothorax. EKG shows a sinus rhythm first-degree AV block at a ventricular rate of 71 bpm. My independent interpretation of the chest x-ray is no acute process. White count 3.7 hemoglobin 10.4 platelet count is 233. MCV noted to be 106.8. Patient states that he takes iron as well as B12. He has had colonoscopy. He states that he is even had a bone marrow biopsy. I asked that he follow-up with his doctor and let him know that his hemoglobin today was 10.4. D-dimer is within normal limits 0.37. Troponin is 7 glucose 98 creatinine 1.45 with a BUN of 15. At this point I do not suspect aortic dissection pulmonary embolism pneumonia pneumothorax pleural effusion or ACS. Given that the pain is reproducible with palpation I suspect this is more chest wall related. I doubt GERD. I would recommend anti-inflammatories heat rest follow-up with primary care if not improving return if worsening or concerns. History & Record Review Discussion w/independent historian: Patient Lab Data Attestation: I reviewed the patient's lab results. Labs: Laboratory Results - last 24 hr 12/17/23 11:52 WBC 3.7 L RBC 2.94 L Hgb 10.4 L Hct 31.4 L MCV 106.8 H MCH 35.4 H MCHC 33.1 RDW Std Deviation 50.4 H RDW Coeff of Mt 13.0 Plt Count 233 MPV 9.8 Immature Gran % (Auto) 0.300 Neut % (Auto) 34.6 L Lymph % (Auto) 50.1 H Craven % (Auto) 11.8 H Eos % (Auto) 2.4 Baso % (Auto) 0.8 Absolute Neuts (auto) 1.3 L Absolute Lymphs (auto) 1.87 Nucleated RBC % 0 D-Dimer Quant (PE/DVT) 0.37 Sodium 139 Potassium 4.3 Chloride 107 Carbon Dioxide 29.0 Anion Gap 3 L BUN 15 Creatinine 1.45 H Estim Creat Clear Calc 71.23 Est GFR (MDRD) Af Amer 64 Est GFR (MDRD) Non-Af 53 L BUN/Creatinine Ratio 10.3 Glucose 98 Calcium 9.1 Troponin I High Sens 7 Radiography Diagnostic Testing: Clinical Impression(s) from Imaging Studies Chest X-Ray 12/17/23 12:20 IMPRESSION: Normal x-ray examination of the chest. Electronically Signed: Darvin Steve MD at 12:30 EDT , Discharge Plan Triage Chief Complaint: Chest Pain ED Provider: Young Bradshaw Dx/Rx/DC Orders Clinical Impression: Chest pain, Costochondritis, Anemia Instructions: ED Chest Wall Pain, Costochondritis Prescriptions: No Action cholecalciferol (vitamin D3) 25 mcg (1,000 unit) capsule 25 mcg PO .weekly Patient Comments: only on for 30 days clonazepam 1 MG tablet 1 mg PO QHS econazole 1 APPLIC cream 1 applic topical DAILY omeprazole 20 MG capsule 20 mg PO DAILY olanzapine 15 MG tablet,disintegrating 20 mg PO QHS zolpidem [Ambien] 10 MG tablet 10 mg PO QHS duloxetine 60 MG capsule,delayed release(DR/EC) 60 mg PO BID carbamazepine 300 MG capsule, ER multiphase 12 hr 600 mg PO BID fenofibrate nanocrystallized 48 MG tablet 48 mg PO DAILY venlafaxine 150 MG tablet extended release 24hr 150 mg PO DAILY lamotrigine 150 mg Tablet 300 mg PO QHS atorvastatin 80 mg Tablet 80 mg PO QHS lisinopril 10 mg Tablet 10 mg PO DAILY docusate sodium 100 mg Capsule 200 mg PO BID ferrous sulfate 27 mg iron Tablet 27 mg PO DAILY vitamin E10-[id number] acid 500-400 mcg Tablet 1 tab PO DAILY Rx Instructions: administer with a meal Primary Care Provider: Jose R Hill Referrals: Jose R Hill MD [Primary Care Provider] - 1 Week Print Language: Occitan Disposition Disposition: Home, Self Care
[2023-12-17] MEDS: Ketorolac 30 MG/ML Syringe IV (12:14)
--- NOTE | 2023-12-17 12:20 | RAD_ITS ---
STUDY: X-RAY CHEST REASON FOR EXAM: Male, 58 years old. Chest pain TECHNIQUE: PA and lateral views of the chest. COMPARISON: Comparison is made with prior study dated July 23, 2007. FINDINGS: EKG electrodes are seen. There is no demonstrated pleural abnormality. Normal size heart. Normal mediastinum and eufemia. Normal visualized pulmonary arteries. Normal visualized aortic arch and descending thoracic aorta. There are degenerative changes of the visualized thoracic spine. Normal visualized ribs, clavicles, and shoulders. There is no demonstrated abnormality of the visualized soft tissue structures of the upper abdomen. RAD/Chest PA and Lateral IMPRESSION: Normal x-ray examination of the chest. Electronically Signed: Darvin Steve MD at 12:30 EDT ,
[2023-12-17 12:22] LABS: Absolute Lymphocyte Count 1.87 X10^3/uL (0.83-4.51); Absolute Neutrophil Count 1.3 X10^3/uL (2.0-7.7); Basophil# 0.03 X10^3/uL; Basophil% 0.8 % (0-1); Eosinophil# 0.09 X10^3/uL; Eosinophils% 2.4 % (0-5); Hematocrit 31.4 % (40-54); Hemoglobin 10.4 g/dL (13.0-16.5); Lymphocyte # 1.87 X10^3/ul (0.83-4.51); Lymphocyte % 50.1 % (19-41); Mean Corp Hgb Conc 33.1 g/dL (32-36); Mean Corpuscular Hgb 35.4 pg (27.0-32.0); Mean Corpuscular Volume 106.8 fL (80-94); Mean Platelet Vol. 9.8 fl (6.2-12.0); Monocyte# 0.44 X10^3/uL; Monocyte% 11.8 % (0-10); NRBC Flagged by Analyzer 0 % (0-5); Neutrophil # 1.29 X10^3/uL (2.7-7.7); Neutrophil % 34.6 % (47-70); Platelet Count 233 K/mm3 (150-450); RBC Distribution Width SD 50.4 fl (35.1-43.9); Red Blood Count 2.94 M/mm3 (4.6-6.2); White Blood Count 3.7 K/mm3 (4.4-11.0)
[2023-12-17 12:30] LABS: D-Dimer Quantitative (DVT/PE) 0.37 FEU/ug/m (0.27-0.49)
[2023-12-17 12:42] LABS: Anion Gap 3 (5-15); BUN 15 mg/dL (7-18); BUN/Creat Ratio 10.3 RATIO (10-20); Calcium,Total 9.1 mg/dL (8.5-10.1); Chloride 107 mmol/L (98-107); Creatinine, Serum 1.45 mg/dL (0.70-1.30); EST Glomerular Filtration Rate 53 mL/min (>60); Est Glom Filt Rate - Afr Amer 64 mL/min (>60); Estimated Creatinine Clearance 71.23 ml/min; Glucose 98 mg/dL (74-106); Potassium 4.3 mmol/L (3.5-5.1); Sodium Level 139 mmol/L (136-145); Troponin-I HS (w/2H Reflex) 7 pg/mL (3.0-78.0)
[2023-12-17 13:04] VITALS: BP 139/84; PULSE 68; RESP 19; TEMP 36.2; O2SAT 100
[2023-12-17 14:10] LABS: Reflex Troponin-HS? (from REC) Y
== END 2023-12-17 13:09 | disposition home or self-care (01) ==
PROVIDERS: Emergency Provider Emergency Medicine; PCP Family Medicine; Referring Provider Emergency Medicine; Visit Provider Emergency Medicine
DX: M94.0 Chondrocostal junction syndrome [Tietze] (principal); I12.9 Hypertensive chronic kidney disease with stage 1 through stage 4 chronic kidney disease, or unspecified chronic kidney disease; N18.9 Chronic kidney disease, unspecified; D63.1 Anemia in chronic kidney disease; E78.00 Pure hypercholesterolemia, unspecified; E66.9 Obesity, unspecified; Z68.30 Body mass index [BMI] 30.0-30.9, adult; Z79.899 Other long term (current) drug therapy
CPT/HCPCS: 71046; 80048; 84484; 85025; 85379; 93005; 96374; 99284; A4216

== ENCOUNTER 2024-07-05 17:08 | Emergency (ER) | payer MEDICARE, MEDICAID, SELFPAY ==
[2024-07-05 17:10] VITALS: BP 148/86; PULSE 78; RESP 18; TEMP 36.3; O2SAT 99; BMI 31.4
--- NOTE | 2024-07-05 18:16 | RAD_ITS ---
PROCEDURE: LUMBAR SPINE 2 OR 3 VIEWS REASON FOR EXAM: PAIN TECHNIQUE: 2 view(s) of the lumbar spine COMPARISON: None. FINDINGS: Lumbar lordosis is maintained. Vertebral body heights are within normal limits. Multilevel loss of disc spaces most prominent at L4-L5 and L5-S1 pedicles are intact. Osseous architecture is maintained. No acute fracture or traumatic subluxation. Multilevel degenerative changes, most prominent at L4-L5 and L5-S1. SI joints are unremarkable. No suspicious lytic or sclerotic lesions. Moderate colonic stool.
[2024-07-05] MEDS: predniSONE 20 MG Tablet 60 MG PO (18:41)
--- NOTE | 2024-07-05 19:11 | ED.VIS.LOWEX ---
HPI History of Present Illness Chief Complaint: Lower Extremity Injury Informant: patient Narrative Narrative: Presents with intermittent bilateral lower leg pain for the last 2 months. He states he will come daily. He said neck and back issues in the past. Denies history of diabetes. States currently no significant pain. However states would have sharp pain occasionally. Denies any loss of bowel or bladder control. Denies any trauma. Prior similar symptoms: No PFSH PFSH Medical History Cognitive communication deficit Wears glasses Arthritis Low iron Restless legs Back pain Injury of head and neck Syncope Dietary restriction Oral hygiene poor History of hiatal hernia Bleeding hemorrhoid History of IBS Gastric reflux Non-smoker Shortness of breath on exertion Chronic cough Leg cramps History of pain when walking History of edema Decay, teeth High cholesterol HTN (hypertension) Bipolar 1 disorder Chronic kidney disease Home Medications ?Medication ?Instructions ?Recorded ?Last Taken ?Type fenofibrate nanocrystallized 48 mg 48 mg PO DAILY 05/08/16 05/08/16 History tablet omeprazole 20 mg capsule,delayed 20 mg PO DAILY 05/08/16 05/08/16 History release atorvastatin 80 mg tablet 80 mg PO QHS 12/28/21 Unknown History docusate sodium 100 mg capsule 200 mg PO BID 12/28/21 Unknown History ferrous sulfate 27 mg iron tablet 27 mg PO DAILY 12/28/21 Unknown History vitamin B12 500 mcg-folic acid 400 1 tab PO DAILY 12/28/21 Unknown History mcg tablet cholecalciferol (vitamin D3) 25 25 mcg PO .weekly 01/16/22 Unknown History mcg (1,000 unit) capsule carbamazepine 300 mg 600 mg (2 x 300 mg) PO BID #60 caps 05/24/24 Unknown Rx capsule,extended release [id number] clonazepam 1 mg tablet 1 mg PO QHS 30 days #30 tabs 05/24/24 Unknown Rx duloxetine 60 mg capsule,delayed 60 mg PO BID #60 caps 05/24/24 Unknown Rx release fenofibrate 40 mg tablet 40 mg PO QDAY 05/24/24 Unknown History lamotrigine 150 mg tablet 300 mg (2 x 150 mg) PO QHS 30 days 05/24/24 Unknown Rx #60 tabs olanzapine 7.5 mg tablet 7.5 mg PO QHS #30 tabs 05/24/24 Unknown Rx venlafaxine 150 mg 150 mg PO DAILY #30 caps 05/24/24 Unknown Rx capsule,extended release 24 hr zolpidem 10 mg tablet (Ambien) 10 mg PO QHS #30 tabs 05/24/24 Unknown Rx gabapentin 300 mg capsule 300 mg PO QHS #14 caps 07/05/24 Unknown Rx prednisone 20 mg tablet 60 mg (3 x 20 mg) PO DAILY #12 07/05/24 Unknown Rx TABLETS Allergy/AdvReac Type Severity Reaction Status Date / Time bupropion (From Wellbutrin) Allergy Other Verified 07/05/24 17:10 clarithromycin (From Biaxin) Allergy Other Verified 07/05/24 17:10 divalproex sodium (From Allergy Other Verified 07/05/24 17:10 Depakote) econazole (From Spectazole) Allergy Other Verified 07/05/24 17:10 fluoxetine (From Prozac) Allergy Other Verified 07/05/24 17:10 latex AdvReac Mild Rash Verified 07/05/24 17:10 ibuprofen AdvReac Nausea/Vom/ Verified 07/05/24 17:10 Diarrhea Family History Father Cancer prostate cancer, skin cancer Hypertension Mother Diabetes Sister Kidney disease Seizures Surgical History S/P laparoscopic cholecystectomy (~12/2021) History of bone marrow biopsy Hx of colonoscopy Hx of esophagogastroduodenoscopy History of excision of lesion S/P appendectomy Social History Smoking Status: Never smoker alcohol intake: never substance use type: does not use ROS ROS ED Constitutional Constitutional ED: Denies chills, fever(s) or sweats ENT ENT ED: Denies sore throat Cardiovascular Cardiovascular: Denies chest pain, leg edema, palpitations or racing heartbeat Respiratory/Chest Respiratory/Chest: Denies cough, dyspnea or dyspnea on exertion Gastrointestinal Gastrointestinal: Denies abdominal pain, diarrhea, nausea or vomiting Genitourinary Genitourinary ED: Denies dysuria, hematuria or urinary frequency Musculoskeletal Musculoskeletal: Reports back pain and extremity pain; Denies neck pain Integumentary Denies rash or wounds Neurologic Neurologic: Denies headache(s), paresthesias or weakness EXAM Physical Exam Const Vital Signs: 07/05/24 17:10 07/05/24 19:23 Temperature 97.4 F L 97.4 F L Temperature Source Temporal Pulse Rate 78 71 Respiratory Rate 18 18 Blood Pressure 148/86 H 135/80 H Blood Pressure Mean 106 98 Pulse Ox 99 93 Oxygen Delivery Method Room Air Positive well nourished and well developed General Appearance ED: well developed and NAD HEENT Reports moist mucous membranes normocephalic and atraumatic Eyes General Eye ED: Yes normal appearance of both eyes Neck full ROM Chest Wall Chest: Negative for tenderness Resp normal respiratory effort and normal air movement Effort and Inspection: symmetric chest movement; Negative for respiratory distress Cardio regular rate, regular rhythm and no murmurs Peripheral Pulses: pulses 2+ throughout GI normal to inspection, nondistended, normoactive bowel sounds and non-tender Palpation: Negative for guarding or rebound tenderness present Back/Spine Back/Spine Narrative: No midline tenderness no paralumbar tenderness. Straight leg test negative bilaterally. 2+ patellar reflex bilaterally. Extremity normal to inspection Extremity Narrative: Soft compartments of thighs and calves. Pulses intact distally. General Extremety ED: Negative for edema or tenderness General Extremity: Negative for edema Neuro oriented x3 and no sensory deficits noted Sensorium / Orientation: awake and alert Skin no rashes or lesions noted and no wounds MDM MDM MDM Narrative Medical decision making narrative: Interventions / MDM: Differential diagnosis: Back pain, sciatica Diagnosis considered but do not suspect: No cauda equina symptoms. My EKG interpretation: N/A Imaging independently reviewed and interpreted by myself: Lumbar spine x-ray 3 views: Lower lumbar degenerative changes. Also read by radiology. External documents reviewed: N/A Test considered but not ordered:N/A ED course: Patient able to ambulate in the ED had no significant pain or symptoms currently. Chronic back pain states pain radiates down both legs would be sharp in nature at time. Discussed possible of sciatica. Has no cauda equina symptoms. Will check lumbar spine x-ray. Started on prednisone. Will reevaluate. X-ray with degenerative changes lower lumbar spine. Discussed treatment options. Will start gabapentin at night. Will continue steroids for additional 4 days. Outpatient follow-up with his doctor. Re-evaluation: stable Disposition discussed with patient/family/significant other: Patient Case discussed with consulting clinician: N/A This note was generated with Dragon dictation software. It may contain incorrect words, spelling, and punctuation that were not noted in checking the note before signing. Radiography Diagnostic Testing: Clinical Impression(s) from Imaging Studies Lumbar Spine X-Ray 07/05/24 18:16 IMPRESSION: No acute fracture or traumatic subluxation. Multilevel degenerative changes most prominent at L4-L5 and L5-S1. Reading Location: [facility] Discharge Plan Triage Chief Complaint: Lower Extremity Injury ED Provider: Tony Buckley Dx/Rx/DC Orders Clinical Impression: Degenerative disk disease, Sciatica Instructions: ED Sciatica Prescriptions: New prednisone 20 mg tablet 60 mg PO DAILY Qty: 12 0RF gabapentin 300 mg capsule 300 mg PO QHS Qty: 14 0RF No Action cholecalciferol (vitamin D3) 25 mcg (1,000 unit) capsule 25 mcg PO .weekly Patient Comments: only on for 30 days fenofibrate 40 mg tablet 40 mg PO QDAY carbamazepine 300 mg capsule, ER multiphase 12 hr 600 mg PO BID Qty: 60 2RF duloxetine 60 mg capsule,delayed release(DR/EC) 60 mg PO BID Qty: 60 0RF clonazepam 1 mg tablet 1 mg PO QHS 30 Days Qty: 30 2RF lamotrigine 150 mg tablet 300 mg PO QHS 30 Days Qty: 60 2RF olanzapine 7.5 mg tablet 7.5 mg PO QHS Qty: 30 2RF venlafaxine 150 mg capsule,extended release 24hr 150 mg PO DAILY Qty: 30 2RF zolpidem [Ambien] 10 mg tablet 10 mg PO QHS Qty: 30 2RF omeprazole 20 MG capsule 20 mg PO DAILY fenofibrate nanocrystallized 48 MG tablet 48 mg PO DAILY atorvastatin 80 mg Tablet 80 mg PO QHS docusate sodium 100 mg Capsule 200 mg PO BID ferrous sulfate 27 mg iron Tablet 27 mg PO DAILY vitamin [id number] acid 500-400 mcg Tablet 1 tab PO DAILY Rx Instructions: administer with a meal Primary Care Provider: Jose R Hill Referrals: Jose R Hill MD [Primary Care Provider] - 1 Week Activity Restrictions/Additional Instructions: X-ray degenerative changes of the lower lumbar spine. Take medication as prescribed. Follow-up your doctor. Print Language: Macedonian Disposition Disposition: Home, Self Care Discharge Date/Time: 07/05/24 19:34
[2024-07-05 19:23] VITALS: BP 135/80; PULSE 71; RESP 18; TEMP 36.3; O2SAT 93
== END 2024-07-05 19:34 | disposition home or self-care (01) ==
PROVIDERS: Emergency Provider Emergency Medicine; PCP Family Medicine; Visit Provider Emergency Medicine
DX: M51.369 Other intervertebral disc degeneration, lumbar region without mention of lumbar back pain or lower extremity pain (principal); F31.9 Bipolar disorder, unspecified; N18.9 Chronic kidney disease, unspecified; I12.9 Hypertensive chronic kidney disease with stage 1 through stage 4 chronic kidney disease, or unspecified chronic kidney disease; E78.00 Pure hypercholesterolemia, unspecified; M54.31 Sciatica, right side; M54.32 Sciatica, left side; K21.9 Gastro-esophageal reflux disease without esophagitis; Z79.899 Other long term (current) drug therapy; Z90.49 Acquired absence of other specified parts of digestive tract
CPT/HCPCS: 72100; 99282

== ENCOUNTER → 2025-03-15 | Outpatient (CLI) | payer MEDICARE, MEDICAID, SELFPAY ==
--- OUTSIDE RECORDS SUMMARY | 2025-03-15 20:06 | XMS RPT_ITS | CCD ---
Author Organization [facility] Care Team Providers Care Boom Conveyor Operator Name Role Phone Alpesh Hill MD Primary Care Provider Dr. Jose R Hill Primary Care Provider Dr. Jose R Hill Referring Provider Dr. Julieta Escobar Attending Provider Dr. Julieta Escobar Referring Provider Dr. Julieta Escobar Other Provider Alpesh Hill MD Primary Care Provider Alpesh Hill MD Primary Care Provider Alpesh Hill MD Primary Care Provider Podlogar SALES SOLUTIONS REPRESENTATIVE.Rose Marie CURRIE Unavailable [place] SALES SOLUTIONS REPRESENTATIVE.Analisa CURRIE Unavailable [place] SALES SOLUTIONS REPRESENTATIVE.Analisa CURRIE Unavailable KEL JOYA JR Referring Unavailable ALPESH HILL Primary Care Unavailab KEL Lopez JR Referring Unavailable ALPESH HILL Primary Care Unavailab KEL Lopez JR Referring Unavailable ALPESH HILL Primary Care Unavailab KEL Lopez JR Referring Unavailable ALPESH HILL Primary Care Unavailab KEL Lopez JR Referring Unavailable ALPESH HILL Primary Care Unavailab KEL Lopez JR Referring Unavailable ALPESH HILL Primary Care Unavailab KEL Lopez JR Referring Unavailable ALPESH HILL Primary Care Unavailab le ALPESH HILL Primary Care Unavailab le ITRAT, AHMED Attending Unavailable KEL JOYA JR Referring Unavailable BURSLEYADANER B Primary Care Unavailab le LLOY PONCE, KEL Pinto Referring Unavailable BURSLEY, ADANER B Primary Care Unavailab KEL Lopez JR Referring Unavailable KEL JOYA JR Referring Unavailable BURSLEY, ZANDEROPHER B Primary Care Unavailab jaida JOYA JR, KEL Pinto Referring Unavailable BURSLEY, ZANDEROPHER B Primary Care Unavailab jaida JOYA JR, KEL Pinto Referring Unavailable BURSLEY, CHRISTOPHER B Primary Care Unavailab le [place] SALES SOLUTIONS REPRESENTATIVE.TRANSPLANT COORDINATOR, Analisa Unavailable [place] SALES SOLUTIONS REPRESENTATIVE.TRANSPLANT COORDINATOR, Analisa Unavailable [place] SALES SOLUTIONS REPRESENTATIVE.TRANSPLANT COORDINATOR, Analisa Unavailable Shauna Andrade Attending Unavailable Bursley, Jose R Primary Care Unavailable Bursley, Jose R Primary Care Unavailable Tony Buckley Attending Unavailable Martin Daniel Attending Unavailable Bursley, Jose R Primary Care Unavailable Shauna Andrade Attending Unavailable Bursley, Jose R Primary Care Unavailable Bursley, Jose R Primary Care Unavailable Shauna Andrade Attending Unavailable Bursley, Jose R Primary Care Unavailable Martin Daniel Attending Unavailable Bursley, Jose R Primary Care Unavailable Martin Daniel Attending Unavailable Bursley, Jose R Primary Care Unavailable Martin Daniel Attending Unavailable Martin Daniel Attending Unavailable Bursley, Jose R Primary Care Unavailable DIANELYS REYNOLDS Referring Unavailable GREGORIOLEY, ADANER B Primary Care Unavailab le GREGORIOLEY, CHRISTOPHER B Primary Care Unavailab le GREGORIOLEY, ADANER B Attending Unavailab le GREGORIOLEY, CHRISTOPHER B Primary Care Unavailab le GREGORIOLEY, ADANER B Referring Unavailab TESSIE Chisholm Attending Unavailable KRISTYNLOGROSE MARIE ISRAEL Referring Unavailable BURSLEY, ZANDEROPHER B Primary Care Unavailab le BURSLEY, CHRISTOPHER B Primary Care Unavailab le BURSLEY, CHRISTOPHER B Primary Care Unavailab le ITRAT, AHMED Referring Unavailable PODLOGARROSE MARIE Referring Unavailable GREGORIOLEY, ADANER B Primary Care Unavailab KEL Lopez JR Attending Unavailable GREGORIOLEYZANDEROPHER B Primary Care Unavailab le PODLOGARROSE MARIE Referring Unavailable DIANELYS REYNOLDS Referring Unavailable ADAN HILLER B Primary Care Unavailab le LUIS, CHRISTOPHER B Primary Care Unavailab le ADAN HILLER B Attending Unavailab le ADAN HILLER B Primary Care Unavailab le GREGORIOLEYADANER B Referring Unavailab DIANELYS Murray Attending Unavailable ZANDER HILLOPHER B Primary Care Unavailab KEL Lopez JR Attending Unavailable ALPESH HILL B Primary Care Unavailab KEL Lopez JR Referring Unavailable ZANDER HILLOPHER B Primary Care Unavailab le BURSLEY, CHRISTOPHER B Primary Care Unavailab le PODLOGROSE MARIE ISRAEL Attending Unavailable DIANELYS REYNOLDS Referring Unavailable LUIS CHRISTOPHER B Primary Care Unavailab le O'LAZAROLOU Attending Unavailable DIANELYS REYNOLDS Referring Unavailable ZANDER HILLOPHER B Primary Care Unavailab le O'LAZAROLOU Attending Unavailable SELF Referring Unavailable ZANDER HILLOPHER B Primary Care Unavailab PEGGY Mcarthur Attending Unavailabl KEL Mae JR Referring Unavailable ZANDER HILLOPHER B Primary Care Unavailab DIANELYS Murray Referring Unavailable ZANDER HILLOPHER B Primary Care Unavailab le O'LAZAROLOU SIERRA Attending Unavailable DIANELYS REYNOLDS Referring Unavailable GREGORIOLEY CHRISTOPHER B Primary Care Unavailab le O'LAZAROLOU Attending Unavailable DIANELYS REYNOLDS Referring Unavailable BURSLEY, CHRISTOPHER B Primary Care Unavailab le O'LAZAROLOU Attending Unavailable TESSIE DEAN Referring Unavailable ZANDER HILLOPHER B Primary Care Unavailab DIANELYS Murray Referring Unavailable ZANDER HILLOPHER B Primary Care Unavailab le BURSLEY, CHRISTOPHER B Primary Care Unavailab le PODLOGARROSE MARIE Referring Unavailable LUIS, CHRISTOPHER B Primary Care Unavailab le PODROSE MARIE ALFREDO Referring Unavailable KEL JOYA JR Referring Unavailable ADAN HILLER B Primary Care Unavailab KEL Lopez JR Attending Unavailable LUIS CHRISTOPHER B Primary Care Unavailab le BURSLEY, CHRISTOPHER B Primary Care Unavailab le PODLOGARROSE MARIE Attending Unavailable Allergies Allergy Classification Reported Allergen(s) Allergy Type Date of Onset Reaction(s) Facility Aminoketones (1 source) buPROPion Drug Allergy 6 Intolerance [facility] Azole Antifungals (1 source) Econazole Drug Allergy 6 Intolerance [facility] Latex (1 source) Latex Substance Allergy 5 Unknown [facility] Macrolides (antibiotic) (1 source) Clarithromycin Drug Allergy 6 Intolerance [facility] NSAIDs (1 source) Ibuprofen Drug Allergy 6 Intolerance [facility] Serotonin Reuptake Inhibitors (SSRIs) (1 source) FLUoxetine Drug Allergy 6 Intolerance [facility] Valproate (1 source) Valproate Drug Allergy 6 Intolerance [facility] (20 sources) buPROPion; Translations: [BUPROPION HCL] Drug Allergy 6 Intolerance [facility] (20 sources) Clarithromycin; Translations: [CLARITHROMYCIN] Drug Allergy 6 Intolerance [facility] (20 sources) Econazole; Translations: [ECONAZOLE NITRATE] Drug Allergy 6 Intolerance [facility] (20 sources) FLUoxetine; Translations: [FLUOXETINE HCL] Drug Allergy 6 Intolerance [facility] (20 sources) Ibuprofen; Translations: [IBUPROFEN] Drug Allergy 6 Intolerance [facility] (20 sources) Latex; Translations: [LATEX] Drug Allergy 5 Unknown [facility] Work Phone: (20 sources) Valproate; Translations: [DIVALPROEX SODIUM] Drug Allergy 6 Intolerance [facility] (3 sources) buPROPion Drug Allergy 2 Other [facility] Work Phone: (3 sources) Econazole Drug Allergy 2 Other [facility] Work Phone: (11 sources) FLUoxetine; Translations: [FLUOXETINE] Drug Allergy 2 Unknown [facility] (1 source) buPROPion Drug Allergy 5 [facility] (1 source) Clarithromycin Drug Allergy 5 [facility] (1 source) Econazole Drug Allergy 5 [facility] (1 source) FLUoxetine Drug Allergy 5 [facility] (1 source) Ibuprofen Drug Allergy 5 [facility] (1 source) Latex Drug allergy (disorder) 5 [facility] (1 source) Valproate Drug Allergy 5 [facility] Medications Current Medications Medication Drug Class(es) Dates Sig (Normalized) Sig (Original) acetaminophen 325 mg / HYDROcodone bitartrate 5 mg oral tablet (1 source) Opioid Agonist Start: 01-04-2022 take 1 tablet by mouth every six hours Hydrocodone-Aceta minophen Active 1 TABLET PO EVERY 6 HOURS 14 January 04, 2022 Start: 01-04-2022 take 1 tablet by haley th every six hours Hydrocodone-Acetaminophen Active 1 TABLE T PO EVERY 6 HOURS 14 January 04, 2022 atorvastatin 80 mg oral tablet (20 sources) HMG-CoA Reductase Inhibitor Start: 07-10-2020 End: 07-27-2024 take 1 tablet by mouth once daily atorvastatin (LIPITOR) 80 mg tablet Take 1 tablet by mouth once daily. 90 tablet 1 07/27/2024 Active Comment on above: Take 1 tablet by haley th daily at bedtime. For cholesterol. Take 1 tablet by haley th once daily. bisacodyl 5 mg delayed release oral tablet (7 sources) Stimulant Laxative take 1 tablet by mouth every eight hours as needed Bisacodyl (DULCOLAX) 5 mg tab Take 5 mg by mouth three times a day as needed for constipation. Active 12 hr carBAMazepine 300 mg extended release oral capsule (20 sources) Mood Stabilizer Start: 05-08-2016 take 300 mg by mouth twice daily Carbamazepine Active 300 MG PO TWICE A DAY May 08, 2016 1:00am Start: 12-05-2005 take 1 capsule by mo [facility] twice daily at mealtime CARBATROL 300 MG 12 HR CAP Take 600 mg by mouth two times a day with meals. 0 12/05/2005 Active Start: 12-05-2005 CARBATROL 300 MG 12 HR CAP Take two capsules two(2) times daily. 0 12/05/2005 Active Comment on above: Take two capsules tw o(2) times daily. clonazePAM 1 mg oral tablet (20 sources) Benzodiazepine Start: 7 take 1 mg by mouth at bedtime Clonazepam Active 1 MG PO AT BEDTIME May 08, 2016 1:00am Comment on above: Take 1 mg by mouth a t bedtime as needed. docusate sodium 100 mg oral capsule (20 sources) Start: take 200 mg by mouth twice daily Docusate Sodium Active 200 MG PO TWICE A DAY December 28, 2021 12:00am take 1 capsule by mouth twice da michael docusate sodium (COLACE) 100 mg capsule Take 100 mg by mouth twice daily. Active Comment on above: Take 100 mg by mouth twice daily. DULoxetine 60 mg delayed release oral capsule (20 sources) Serotonin and Norepinephrine Reuptake Inhibitor Start: 05-08-19 take 60 mg by mouth twice daily Duloxetine Active 60 MG PO TWICE A DAY May 08, 2016 1:00am Comment on above: Take 60 mg by mouth twice daily. econazole nitrate 10 mg/ml topical cream (3 sources) Azole Antifungal Start: 05-08-19 Econazole Active 1 APPLIC TOPICAL DAILY May 08, 2016 1:00am fenofibrate 48 mg oral tablet (20 sources) Peroxisome Proliferator Receptor alpha Agonist Start: 03-29-20 End: 07-28-19 take 1 tablet by mouth once daily fenofibrate nanocrystallized (TRICOR) 48 mg tablet Take 1 tablet by mouth once daily. 90 tablet 1 07/27/2024 Active Start: 10-17-2022 End: 03-27-2024 take 1 tablet by mouth once daily fenofibrate nanocrystallized (TRICOR) 48 mg tablet Take 1 tablet by mouth once daily. 90 tablet 1 07/21/2023 03/27/2024 Discontinued Start: 03-28-2022 End: 10-14-2022 take 1 tablet by mouth once daily fenofibrate nanocrystallized (TRICOR) 48 mg tablet Take 1 tablet by mouth once daily. 90 tablet 1 03/28/2022 10/14/2022 Discontinued Start: 05-08-2016 End: 01-10-2022 take 1 tablet by mouth once daily fenofibrate nanocrystallized (TRICOR) 48 mg tablet Take 1 tablet by mouth once daily. 90 tablet 1 07/19/2020 01/19/2021 Discontinued Comment on above: Take 1 tablet by haley th once daily. ferrous sulfate 134 mg oral tablet (20 sources) Start: 12-28-2021 take 27 mg by mouth once daily Ferrous Sulfate Active 27 MG PO DAILY December 28, 2021 12:00am take 1 tablet by haley th once daily in the morning FERROUS SULFATE (HIGH POTENCY IRON ORAL) Take 1 tablet by mouth once daily. 27 mg daily in the morning Active take 1 tablet by mouth once donavon y FERROUS SULFATE (HIGH POTENCY IRON ORAL) Take 1 tablet by mouth once daily. Active take 1 tablet by mouth once donavon y FERROUS SULFATE (HIGH POTENCY IRON ORAL) Take 1 tablet by mouth once daily. 0 Active Comment on above: Take 1 tablet by haley th once daily. folic acid 0.4 mg / vitamin b12 0.5 mg oral tablet (1 source) Vitamin B12 Start: 12-28-2021 take 1 tablet by mouth once daily Vitamin E20-Symtd Acid Active 1 TABLET PO DAILY December 28, 2021 12:00am administer with a meal gabapentin 300 mg oral capsule (20 sources) Anti-epileptic Agent Start: 10-18-2024 End: 02-05-2025 gabapentin (NEURONTIN) 300 mg capsule Indications: Spinal stenosis of lumbar region, unspecified whether neurogenic claudication present , Neuropathy Take 1 cap in AM and 1 cap in PM. 180 capsule 1 11/05/2024 02/05/2025 Active Start: 07-06-2024 End: 10-04-2024 take 1 capsule by mouth once daily at bedtime gabapentin (NEURONTIN) 300 mg capsule Take 1 capsule by mouth daily at bedtime for 90 days. 30 capsule 2 07/06/2024 10/04/2024 Active lamoTRIgine 150 mg oral tablet (20 sources) Mood Stabilizer, Anti-epileptic Agent Start: 12-28-2021 take 300 mg by mouth at bedtime Lamotrigine Active 300 MG PO AT BEDTIME December 28, 2021 12:00am Start: 05-08-2016 take 1 tablet by haley th once daily Lamotrigine (Lamictal Xr) 200 MG tablet extended release 24hr Active 200 MG PO DAILY May 08, 2016 1:00am take 2 tablets by mo ut once daily at bedtime lamoTRIgine (LAMICTAL) 150 mg tablet Take 300 mg by mouth daily at bedtime. Active End: 11-01-2024 lamoTRIgine (LAMICTAL) 200 m g tablet Take 300 mg by mouth once daily. 11/01/2024 Discontinued (Dosage adjustment) Comment on above: Take 300 mg by mouth once daily. omeprazole 20 mg delayed release oral capsule (20 sources) Proton Pump Inhibitor Start: 2 End: 5 take 1 capsule by mouth once daily before breakfast omeprazole (PRILOSEC) 20 mg capsule Take 1 capsule by mouth daily before breakfast. 1/2 hr before meal. 90 capsule 1 01/06/2025 Active Start: 05-08-2016 End: 01-10-2022 take 1 capsule by mouth once daily before breakfast omeprazole (PRILOSEC) 20 mg capsule Take 1 capsule by mouth daily before breakfast. 1/2 hr before meal. 90 capsule 1 10/17/2020 07/13/2021 Discontinued Comment on above: Take 1 capsule by [facility] daily before breakfast. 1/2 hr before meal. perflutren lipid microspheres 1.3 mL in NaCl (PF) 0.9% 10 mL injection (DEFINITY) (20 sources) Start: 3 End: 4 perflutren lipid microspheres 1.3 mL in NaCl (PF) 0.9% 10 mL injection (DEFINITY) polyethylene glycol 3350 [id number] mg / potassium chloride 2980 mg / sodium bicarbonate 6720 mg / sodium chloride 5840 mg / sodium sulfate 75700 mg powder for oral solution (1 source) Osmotic Laxative Start: 3 End: 3 peg 3350-electrolytes (COLYTE) 240-22.72-6.72 -5.84 gram solution Take 4,000 mL by mouth one time only for 1 dose. 1 Each 0 07/17/2022 07/17/2022 Active Comment on above: Take 4,000 mL by [facility] one time only for 1 dose. predniSONE 20 mg oral tablet (11 sources) Start: 7 take 60 mg by mouth once daily Prednisone Active 60 MG PO DAILY May 08, 2016 1:00am End: 07-27-2024 take 3 tablets by mouth once daily predniSONE (DELTASONE) 20 mg tablet Take 60 mg by mouth once daily. 07/27/2024 Discontinued (Course of therapy completed) 125 ml sodium chloride 9 mg/ml prefilled syringe (20 sources) Start: 11-05-2022 End: 02-04-2024 sodium chloride 0.9 % (flush) 10 mL (BD POSIFLUSH) 24 hr venlafaxine 150 mg extended release oral tablet (20 sources) Serotonin and Norepinephrine Reuptake Inhibitor Start: 05-08-2016 take 150 mg by mouth once daily Venlafaxine Active 150 MG PO DAILY May 08, 2016 1:00am Comment on above: Take by mouth once d aily. vitamin b12 0.5 mg oral tablet (20 sources) Vitamin B12 take 2 tablets by mouth once daily cyanocobalamin (VITAMIN B-12) 500 mcg tablet Take 2 tablets by mouth once daily. Active Comment on above: Take 2 tablets by mo ut once daily. zolpidem tartrate 5 mg oral tablet (20 sources) gamma-Aminobutyric Acid-ergic Agonist Start: 11-10-2024 take 1 tablet by mouth every twenty-four hours as needed zolpidem (AMBIEN) 5 mg tablet Take 5 mg by mouth at bedtime as needed. 11/10/2024 Active Start: 05-08-2016 End: 11-05-2024 take 1 tablet by mouth at bedtime Zolpidem (Ambien) 10 MG tablet Active 10 MG PO AT BEDTIME May 08, 2016 1:00am Comment on above: Take by mouth at bed time as needed. Completed/Discontinued Medications Medication Drug Class(es) Dates Sig (Normalized) Sig (Original) [id number] 200 actuat albuterol 0.09 mg/actuat metered dose inhaler (20 sources) beta2-Adrenergic Agonist Start: 10-28-2023 End: 05-19-2024 take 2 puff(s) by inhalation every four hours as needed for wheezing albuterol HFA (VENTOLIN HFA) 90 mcg/actuation inhaler Indications: Viral bronchitis , URI with cough and congestion Inhale 2 Puffs as instructed every 4 hours as needed for wheezing/shortness of breath. 1 Each 1 10/28/2023 05/19/2024 Discontinued (Course of therapy completed) benzonatate 100 mg oral capsule (4 sources) Non-narcotic Antitussive Start: 10-28-2023 End: 11-07-2023 take 1 capsule by mouth three times daily as needed benzonatate (TESSALON PERLE) 100 mg capsule Indications: Viral bronchitis , URI with cough and congestion Take 1 capsule by mouth three times a day as needed for up to 10 days. 30 capsule 10/28/2023 11/07/2023 cholecalciferol 1.25 mg oral capsule (20 sources) Vitamin D Start: 05-20-2024 End: 11-05-2024 take 1 capsule by mouth every week cholecalciferol, Vitamin D3, (VITAMIN D3) 1,250 mcg (50,000 unit) cap capsule Indications: Vitamin D deficiency Take 1 capsule by mouth one time a week. 12 capsule 05/20/2024 11/05/2024 Discontinued take 1 tablet by mouth once donavon y cholecalciferol (VITAMIN D) 1,000 unit tab tablet Take 1,000 Units by mouth once daily. Active dextromethorphan hydrobromide 2 mg/ml / guaiFENesin 40 mg/ml oral suspension (20 sources) Uncompetitive C-liomxl-O-aspartate Receptor Antagonist, Sigma-1 Agonist End: 05-19-2024 take 5 mL by mouth every six hours as needed Dextromethorphan-guaiFENesin (TUSSIN DM MAX) 10-200 mg/5 mL liqd Take 5 mL by mouth every 6 hours as needed. 05/19/2024 Discontinued (Course of therapy completed) fluticasone propionate 0.05 mg/actuat metered dose nasal spray (20 sources) Corticosteroid Start: 10-28-2023 End: 05-19-2024 take 2 spray(s ) by mouth once daily fluticasone (FLONASE) 50 mcg/actuation nasal spray Indications: Viral bronchitis , URI with cough and congestion Use 2 Sprays in each nostril once daily. Rinse mouth after use. 1 Each 1 10/28/2023 05/19/2024 Discontinued (Course of therapy completed) iv contrast (will be provided with radiology test) (1 source) Start: 11-06-2023 End: 11-06-2023 inject 1 dose intrave nously once, then inject 1 dose intrave nously once iv contrast (will be provided with radiology test) Indications: Lymphadenopathy, cervical , Localized enlarged lymph nodes Inject 1 Each intravenously one time only for [address] Neck W IVCON No IV access, insert saline lock prior to the sedation, infusion, injection for imaging exam. Discontinue saline lock post exam. If Pt. has a central line or IVAD, may access for administration according to line specific nursing protocol. Once exam is complete flush line and de-access according to line specific nursing protocol in the CT contrast administration guidelines link. 1 Each 0 11/06/2023 11/06/2023 Discontinued lisinopril 10 mg oral tablet (20 sources) Angiotensin Converting Enzyme Inhibitor Start: 08-05-2023 End: 02-01-2024 take 1 tablet by mouth once daily lisinopril (ZESTRIL) 10 mg tablet Take 1 tablet by mouth once daily. 90 tablet 1 08/05/2023 01/02/2024 Discontinued (Clinical Decision) Start: 03-28-2022 End: 07-21-2023 take 1 tablet by mouth once daily lisinopril (ZESTRIL, PRINIVIL) 10 mg tablet Take 1 tablet by mouth once daily. 90 tablet 1 03/28/2022 12/09/2022 Discontinued Start: 04-16-2021 End: 01-10-2022 take 1 tablet by mouth once daily lisinopril (ZESTRIL, PRINIVIL) 10 mg tablet Take 1 tablet by mouth once daily. 90 tablet 1 01/10/2022 Active Comment on above: Take 1 tablet by haley th once daily. nystatin 100 unt/mg topical powder (20 sources) Polyene Antifungal Start: End: 5 nystatin (NYSTOP) powder Indications: Intertrigo Apply 1 application to affected area three times a day. 30 g 01/24/2023 05/19/2024 Discontinued (Course of therapy completed) Comment on above: Apply 1 application to affected area three times daily. Apply 1 application to affected area three times a day. OLANZapine 10 mg oral tablet (20 sources) Atypical Antipsychotic Start: End: 5 take 2 tablets by mouth once daily at bedtime OLANZapine (ZYPREXA) 10 mg tablet Take 2 tablets by mouth daily at bedtime. 09/22/2020 11/05/2024 Discontinued Start: 05-08-2016 take 20 mg by mouth at bedtime Olanzapine Active 20 MG PO AT BEDTIME May 08, 2016 1:00am Start: 05-08-2016 take 15 mg by mouth once daily Olanzapine Active 15 MG PO DAILY May 08, 2016 1:00am take 1 tablet by haley th once daily at bedtime OLANZapine (ZYPREXA) 7.5 mg tablet Take 7.5 mg by mouth daily at bedtime. Active Comment on above: Take 2 tablets by mo ut daily at bedtime. simvastatin 20 mg oral tablet (4 sources) HMG-CoA Reductase Inhibitor Start: 05-08-2016 simvastatin (ZOCOR) 20 mg tablet Take by mouth. 0 05/08/2016 Active Comment on above: Take by mouth. Problems Active Problems Problem Classification Problem Date Documented Da te Episodic/Chronic Abdominal pain (5 sources) Abdominal pain; Translations: [Unspecified abdominal pain] Episodic Acute bronchitis (3 sources) Viral bronchitis; Translations: [Acute bronchitis due to other specified organisms] 10-28-2023 Episodic Acute cerebrovascular disease (20 sources) Cerebral hemorrhage; Translations: [Nontraumatic intracerebral hemorrhage, unspecified] Onset: 5 04-30-2024 Chronic Administrative/social admission (1 source) Worried well; Translations: [Person with feared health complaint in whom no diagnosis is made] 02-26-2023 Episodic Allergic reactions (20 sources) Contact dermatitis; Translations: [Unspecified contact dermatitis, unspecified cause] Onset: 0 10-14-2009 Episodic Anal and rectal conditions (1 source) Rectal polyp; Translations: [Rectal polyp] Episodic Biliary tract disease (4 sources) Biliary calculus; Translations: [Calculus of gallbladder without cholecystitis without obstruction] Episodic Blindness and vision defects (1 source) Blurring of visual image; Translations: [Other visual disturbances] 02-02-2024 Episodic Chronic kidney disease (20 sources) Chronic kidney disease stage 3; Translations: [CKD (chronic kidney disease) stage 3, GFR 30-59 ml/min] Onset: 9 07-09-2018 Chronic Chronic kidney disease (3 sources) Chronic kidney disease; Translations: [Stage 3 chronic kidney disease, unspecified whether stage 3a or 3b CKD (HCC)] Onset: 9 Conditions associated with dizziness or vertigo (5 sources) Lightheadedness; Translations: [Dizziness and giddiness] 07-21-2023 Episodic Deficiency and other anemia (4 sources) Macrocytic anemia; Translations: [Nutritional anemia, unspecified] 07-22-2023 Episodic Diseases of mouth; excluding dental (1 source) Xerostomia; Translations: [Dry mouth, unspecified] 12-03-2023 Episodic Disorders of lipid metabolism (20 sources) Hyperlipidemia; Translations: [Hyperlipidemia, unspecified] Onset: 8 01-17-2018 Chronic E Codes: Fall (1 source) Fall; Translations: [Unspecified fall, initial encounter] Episodic Esophageal disorders (20 sources) Gastroesophageal reflux disease; Translations: [Gastro-esophageal reflux disease without esophagitis] Onset: 9 07-09-2018 Chronic Essential hypertension (20 sources) Essential hypertension; Translations: [Essential (primary) hypertension] Onset: 1 04-16-2021 Chronic Gastrointestinal hemorrhage (3 sources) Gastrointestinal hemorrhage; Translations: [Hemorrhage of anus and rectum] Episodic Hemorrhoids (3 sources) External hemorrhoids; Translations: [Residual hemorrhoidal skin tags] Episodic Lymphadenitis (5 sources) Cervical lymphadenopathy; Translations: [Localized enlarged lymph nodes] 10-28-2023 Episodic Mood disorders (20 sources) Bipolar disorder; Translations: [Bipolar disorder, unspecified] Onset: 5 06-09-2014 Chronic Nonspecific chest pain (4 sources) Chest pain; Translations: [Chest pain, unspecified] 11-05-2022 Episodic Nutritional deficiencies (20 sources) Vitamin D deficiency; Translations: [Vitamin D deficiency, unspecified] Onset: 5 05-20-2024 Chronic Osteoarthritis (20 sources) Primary gonarthrosis, bilateral; Translations: [Bilateral primary osteoarthritis of knee] Onset: 3 Chronic Other aftercare (1 source) Long-term current use of drug therapy; Translations: [Other terminal supervisor (current) drug therapy] 11-05-2024 Episodic Other aftercare (1 source) Long-term current use of 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; Translations: [Other shelter (current) drug therapy] 11-05-2024 Episodic Other and ill-defined cerebrovascular disease (20 sources) Cerebral amyloid angiopathy; Translations: [Cerebral amyloid angiopathy] Onset: 5 04-30-2024 Chronic Other and ill-defined cerebrovascular disease (3 sources) Cerebral amyloid angiopathy; Translations: [Cerebral amyloid angiopathy (CODE)] Onset: 5 Chronic Other circulatory disease (2 sources) Abnormal peripheral pulse; Translations: [Other specified symptoms and signs involving the circulatory and respiratory systems] 11-01-2024 Episodic Other connective tissue disease (2 sources) Romberg's sign positive; Translations: [Other symptoms and signs involving the nervous system] 01-02-2024 Episodic Other connective tissue disease (1 source) Pain in left thumb; Translations: [Pain in left finger(s)] 10-25-2020 Episodic Other connective tissue disease (5 sources) Pain in left foot; Translations: [Pain in left foot] 09-28-2024 Episodic Other ear and sense organ disorders (1 source) Impacted cerumen of bilateral ears; Translations: [Impacted cerumen, bilateral] 02-23-2024 Episodic Other ear and sense organ disorders (1 source) Bilateral earache; Translations: [Otalgia, bilateral] 02-23-2024 Episodic Other gastrointestinal disorders (1 source) Chronic constipation; Translations: [Other constipation] Episodic Other inflammatory condition of skin (1 source) Intertrigo; Translations: [Erythema intertrigo] 01-24-2023 Episodic Other injuries and conditions due to external causes (1 source) Unspecified injury of right thigh, initial encounter; Translations: [Hip and thigh injury] Episodic Other injuries and conditions due to external causes (1 source) Abrasion; Translations: [Other injury of unspecified body region, initial encounter] 11-01-2024 Episodic Other liver diseases (2 sources) High lipase level in serum; Translations: [Abnormal levels of other serum enzymes] Episodic Other liver diseases (2 sources) Abnormal levels of other serum enzymes; Translations: [Other nonspecific abnormal serum enzyme levels] Episodic Other lower respiratory disease (2 sources) Snoring; Translations: [Snoring] 11-05-2024 Episodic Other male genital disorders (1 source) Pain in penis; Translations: [Other specified disorders of penis] 05-19-2024 Chronic Other male genital disorders (1 source) Other specified disorders of penis; Translations: [Penile pain] Onset: Chronic Other male genital disorders (1 source) Pain of right testicle; Translations: [Right testicular pain] 05-19-2024 Episodic Other nervous system disorders (4 sources) Neuropathy; Translations: [Polyneuropathy, unspecified] 07-20-2024 Chronic Other nervous system disorders (1 source) Polyneuropathy, unspecified; Translations: [Neuropathy] Onset: 5 Chronic Other nervous system disorders (2 sources) Unsteady when walking; Translations: [Unsteadiness on feet] 07-21-2023 Episodic Other nervous system disorders (1 source) Tremor; Translations: [Tremor, unspecified] 07-21-2023 Episodic Other nervous system disorders (2 sources) Abnormal gait; Translations: [Unsteadiness on feet] 01-02-2024 Episodic Other nervous system disorders (1 source) Disturbance in speech; Translations: [Unspecified speech disturbances] 02-02-2024 Episodic Other non-traumatic joint disorders (2 sources) Pain in right knee; Translations: [Other acute pain] Episodic Other nutritional; endocrine; and metabolic disorders (20 sources) Obese class I; Translations: [Obesity, unspecified] Onset: 9 07-09-2018 Chronic Other nutritional; endocrine; and metabolic disorders (20 sources) Hereditary cerebrovascular amyloidosis; Translations: [Organ-limited amyloidosis] Onset: 5 05-18-2024 Chronic Other nutritional; endocrine; and metabolic disorders (1 source) Organ-limited amyloidosis; Translations: [Hereditary cerebral amyloid angiopathy (HCC) (HCC)] Onset: 5 Chronic Other upper respiratory infections (3 sources) Upper respiratory infection; Translations: [Acute upper respiratory infection, unspecified] 10-28-2023 Episodic Residual codes; unclassified (2 sources) Obstructive sleep apnea syndrome; Translations: [Obstructive sleep apnea (adult) (pediatric)] 11-05-2024 Chronic Residual codes; unclassified (1 source) Behavior finding; Translations: [Other sleep apnea] 11-05-2024 Chronic Residual codes; unclassified (1 source) Other sleep apnea; Translations: [Sleep apnea-like behavior] Onset: 5 Chronic Residual codes; unclassified (1 source) Obstructive sleep apnea (adult) (pediatric); Translations: [MAXIMUS (obstructive sleep apnea)] Onset: 5 Chronic Unclassified (1 source) Behavior finding 11-05-2024 Unclassified (1 source) Other intervertebral disc degeneration, lumbar region without mention of lumbar back pain or lower extremity pain; Translations: [Other intervertebral disc degeneration, lumbar region without mention of lumbar back pain or lower extremity pain] Onset: Unclassified (1 source) Obesity, Class I, BMI 30-34.9; Translations: [Obesity, Class I, BMI 30-34.9] Onset: 9 Past or Other Problems Problem Classification Problem Date Documented Date Episodic/Chronic Coma; stupor; and brain damage (3 sources) Daytime somnolence; Translations: [Somnolence] Onset: 11-05-2024 11-05-2024 Episodic Deficiency and other anemia (20 sources) Anemia; Translations: [Anemia, unspecified] Onset: 06-09-2014 06-09-2014 Episodic Deficiency and other anemia (1 source) Anemia, unspecified; Translations: [Anemia, unspecified type] Onset: 06-09-2014 Episodic Diabetes mellitus without complication (20 sources) Type 2 diabetes mellitus without complication; Translations: [Type 2 diabetes mellitus without complications] Onset: 05-19-2024 Resolved: 05-19-2024 Chronic Epilepsy; convulsions (4 sources) Seizure; Translations: [Unspecified convulsions] Onset: 07-15-2024 06-11-2024 Episodic Fluid and electrolyte disorders (2 sources) Hyperkalemia; Translations: [Hyperkalemia] Onset: 11-24-2024 11-18-2024 Episodic Malaise and fatigue (3 sources) Malaise and fatigue; Translations: [Other malaise] Onset: 11-05-2024 11-05-2024 Episodic Neoplasms of unspecified nature or uncertain behavior (20 sources) Neoplasm of uncertain behavior of skin; Translations: [Neoplasm of uncertain behavior of skin] Onset: 02-24-2013 02-24-2013 Episodic Other aftercare (2 sources) Other terminal supervisor (current) drug therapy; Translations: [Encounter for long-term (current) use of medications] Onset: 11-05-2024 Episodic Other and unspecified benign neoplasm (20 sources) Melanocytic nevus of trunk; Translations: [Melanocytic nevi of trunk] Onset: 02-24-2013 02-24-2013 Episodic Other circulatory disease (1 source) Other specified symptoms and signs involving the circulatory and respiratory systems; Translations: [Diminished pulses in lower extremity] Onset: 11-01-2024 Episodic Other connective tissue disease (20 sources) Pain in bilateral legs; Translations: [Pain in right leg] Onset: 08-04-2024 07-06-2024 Episodic Other connective tissue disease (1 source) Pain in left foot; Translations: [Foot pain, left] Onset: 09-28-2024 Episodic Other connective tissue disease (2 sources) Pain in right leg; Translations: [Pain in both lower extremities] Onset: 07-27-2024 Episodic Other connective tissue disease (2 sources) Pain in left leg; Translations: [Pain in both lower extremities] Onset: 07-27-2024 Episodic Other inflammatory condition of skin (20 sources) Inverted follicular keratosis; Translations: [Acquired keratosis follicularis] Onset: 02-24-2013 02-24-2013 Episodic Other injuries and conditions due to external causes (20 sources) Open wound; Translations: [Other injury of unspecified body region, initial encounter] Onset: 12-22-2007 12-22-2007 Episodic Other injuries and conditions due to external causes (1 source) Other injury of unspecified body region, initial encounter; Translations: [Abrasion] Onset: 11-01-2024 Episodic Other lower respiratory disease (1 source) Snoring; Translations: [Snoring] Onset: 11-05-2024 Episodic Other male genital disorders (1 source) Right testicular pain; Translations: [Testicular pain, right] Onset: 05-19-2024 Episodic Other nervous system disorders (20 sources) Impaired cognition; Translations: [Other symptoms and signs involving cognitive functions and awareness] Onset: 05-18-2024 04-30-2024 Episodic Other nervous system disorders (20 sources) Impairment of balance; Translations: [Other abnormalities of gait and mobility] Onset: 05-18-2024 04-30-2024 Episodic Other nervous system disorders (2 sources) Other abnormalities of gait and mobility; Translations: [Balance problems] Onset: 05-18-2024 Episodic Other nervous system disorders (2 sources) Other symptoms and signs involving cognitive functions and awareness; Translations: [Cognitive decline] Onset: 05-18-2024 Episodic Other screening for suspected conditions (not mental disorders or infectious disease) (9 sources) Other specified abnormal findings of blood chemistry; Translations: [Elevated liver function tests] Onset: 04-30-2024 Episodic Other skin disorders (20 sources) Sebaceous cyst of skin; Translations: [Sebaceous cyst] Onset: 07-29-2007 07-29-2007 Episodic Other skin disorders (20 sources) Acne; Translations: [Other acne] Onset: 07-29-2007 05-28-2011 Episodic Other skin disorders (20 sources) Scar conditions and fibrosis of skin; Translations: [Scar conditions and fibrosis of skin] Onset: 07-29-2007 07-29-2007 Episodic Other skin disorders (20 sources) Scar; Translations: [Scar conditions and fibrosis of skin] Onset: 12-12-2010 12-12-2010 Episodic Other skin disorders (20 sources) Actinic keratosis; Translations: [Actinic keratosis] Onset: 02-24-2013 02-24-2013 Episodic Other skin disorders (20 sources) Inflamed seborrheic keratosis; Translations: [Inflamed seborrheic keratosis] Onset: 02-24-2013 02-24-2013 Episodic Other skin disorders (20 sources) Seborrheic keratosis; Translations: [Other seborrheic keratosis] Onset: 02-24-2013 02-24-2013 Episodic Other skin disorders (20 sources) Skin tag; Translations: [Other hypertrophic disorders of the skin] Onset: 02-24-2013 02-24-2013 Episodic Other skin disorders (20 sources) Sebaceous hyperplasia; Translations: [Other specified follicular disorders] Onset: 04-09-2013 04-09-2013 Episodic Other skin disorders (20 sources) Milia; Translations: [Epidermal cyst] Onset: 04-09-2013 04-09-2013 Episodic Other skin disorders (20 sources) Changes in skin texture; Translations: [Other skin changes] Onset: 04-09-2013 04-09-2013 Episodic Spondylosis; intervertebral disc disorders; other back problems (20 sources) Spinal stenosis of lumbar region; Translations: [Spinal stenosis, lumbar region without neurogenic claudication] Onset: 08-04-2024 07-06-2024 Episodic Results Test Name Value Interpretation Reference Range Facility [facility] 03-07-2025 [facility] Office Visit (SHAHNAZ ) JIMI SOTO ([id number]) 1965 M Date Time Provider Department 03/07/25 1:00 PM KEL JOYA JR During your visit today, we recorded the following information about you: Pulse Respiration Blood pressure Weight 74/minute 16/minute 146/93 110 kg Kel Joya Jr., MD 03/07/2025 2:03 PM Signed ESTABLISHED PATIENT VISIT CHIEF COMPLAINT: Follow Up HISTORY OF PRESENT ILLNESS: Jimi Soto is a 59 year old male, with a PMH significant for and per last office visit of 11/05/24: 1. Encounter for long-term (current) use of medications - ICD9: V58.69, ICD10: Z79.899 (primary diagnosis) 2. Cognitive decline - ICD9: 294.9, ICD10: R41.89 3. Abnormal finding on MRI of brain - ICD9: 793.0, ICD10: R90.89 4. Cerebral amyloid angiopathy (CODE) - ICD9: 277.39, 437.9, ICD10: I68.0 Etiology of cognitive decline remains unknown. However, patient did score higher on the MOCA today than last visit, perhaps suggesting that in fact cognitive complaints are due to other medical and mood disorders. Still, finding of possible CAA on prior MRI brain. Agree with Dr. Villavicencio on repeating MRI brain later this year. Await those findings. Given overall improvement, will not initiate a dementia medication at this time such as Aricept or Namenda. Follow up in February to see if remains stable. By that time should also have repeat MRI results. 5. watermaster current use of 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 - ICD9: V58.69, ICD10: Z79.899 Possible cause of other complaints including cognition/fatigue/sleepines s. Will check levels of Lamictal and Carbamazepine to confirm not supra therapeutic. 6. Malaise and fatigue - ICD9: 780.79, ICD10: R53.81, R53.83 #5 as above and see below regarding possible MAXIMUS. 7. Spinal stenosis of lumbar region, unspecified whether neurogenic claudication present - ICD9: 724.02, ICD10: M48.061 8. Neuropathy - ICD9: 355.9, ICD10: G62.9 Pain appears unchanged from last visit. Has symptoms suggestive of both L spine and neuropathy etiology. No weakness. Pain improved with gabapentin. Will increase gabapentin dose to 300mg BID. 9. Snoring - ICD9: 786.09, ICD10: R06.83 10. Daytime sleepiness - ICD9: 780.54, ICD10: R40.0 11. Sleep apnea-like behavior - ICD9: 780.59, ICD10: G47.39 12. MAXIMUS (obstructive sleep apnea) - ICD9: 327.23, ICD10: G47.33 Tired and sleepy. Does have risk factors for MAXIMUS including BMI >30 and crowded airway. Symptoms of snoring. Dry mouth at night. Will get HSAT to further evaluate. Discussed with patient: the physiology of OSAS, medical conditions associated with OSAS (DM, HTN, CAD, Depression, Stroke, Headache...) and treatment options (UPPP, Dental appliances, CPAP...). Advised patient to avoid activities that could harm self or others when tired/sleepy, including driving and/or operating heavy machinery. Encouraged weight loss, and continued compliance with other medications. Pt did not complete sleep study. MRI brain completed on 02/02/25 suggestive of CAA but no new hemorrhages identified. Per rad report: No acute intracranial pathology. Innumerable chronic microhemorrhages, similar to previous. Patient feels memory doing better. Thinks things are better. Pt did not want to do sleep study. States psychiatry is trying to get him off meds. Sister expands on this - ambien d/c'd, effexor dose to 04/29. Pt states that fatigue persists. Going to bed about 11PM and waking about 7AM. No issues falling asleep. States feels good right when he gets up and then can hardly get to breakfast. States entire day feels tired. Dozing off if trying to watch tv. HAs in AM as well as dry mouth in the AM. States balance still not good but no falls. Only taking gabapentin at night as daytime dosing makes too tired. States however that this dose alone is controlling neuropathy pain. No issues driving. MODIFIED MOCA: Immediate recall: 08/30 Sentence repeat: 05/30 Number repeat: 05/30 Serial 7s: 05/31 Abstract: 2/2 Orientation: 10/01 Namin/3 Delayed recall: 07/31 (08/30 with cue) Clock drawin/3 REVIEW OF SYSTEMS GENERAL:No weight loss, malaise or fevers. HEENT:Negative for frequent or significant headaches, No changes in hearing or vision, no nose bleeds or other nasal problems NECK:Negative for lumps, goiter, pain and significant neck swelling RESPIRATORY: Negative for cough, wheezing or shortness of breath. CARDIOVASCULAR: Negative for chest pain, leg swelling or palpitations. GASTROINTESTINAL: Negative for abdominal discomfort, blood in stools or black stools or change in bowel habits GENITOURINARY: No history of dysuria, frequency or incontinence MUSCULOSKELETAL: Negative for joint pain or swelling, back pain or muscle pain. NEUROLOGIC:Negative for focal numbness or weakness, headaches and dizziness or syncope, vision changes, speech/languag changes - EXCE (more content not included)... Normal [facility] JIMI SOTO ([id number]) 1965 M Date Time Provider Department 02/15/25 KEL JOYA JR During your visit today, we recorded the following information about you: Sangeeta Carrion RN 02/15/2025 10:30 AM Signed Patient calls to ask provider if it would be ok to start taking the gabapentin 300 mg twice daily. He reports that he was just taking it at bedtime but would like to resume the twice daily dosing. Per orders, medication is to be twice daily. Patient then reports that this morning he resumed the twice daily dosing and accidentally took gabapentin 300 mg two capsules for a dose of 600 mg this morning. Patient reports that he will not drive today as he knows he could be more drowsy/lethargic from taking extra medication. Patient requests call back at [phone]. ROLF Olvera William J Jr., MD 02/16/2025 3:37 PM Signed Yes, it is ok for patient to take gabapentin 300mg twice daily. If any side effects, he should reduce dose back to 300mg at bedtime and contact us immediately. Thank you, MD Murali Santos Krystle, RN 02/16/2025 4:06 PM Signed Call placed to patient and notified of provider message below with verbalized understanding. ROLF Olvera Krystle, RN 02/18/2025 11:59 AM Signed Patient calls back to say that taking gabapentin in the morning and at night is making him to lethargic and reports it wasn't helping the pain. Patient asking if he can go back on just the PM dose. Per notes below, told patient to go back on just the nightly dose. ROFL Olvera, Kel Pinto Jr., MD 02/18/2025 4:05 PM Signed Ok to return to nightly dose of gabapentin 300mg. Kel Joya MD Allergies As of Date: 02/15/2025 Noted Allergy Reaction BIAXIN (CLARITHROMYCIN) 12/05/2005 5 - Intolerance DEPAKOTE (DIVALPROEX SODIUM) 12/05/2005 5 - Intolerance FLUOXETINE 12/17/2023 16 - Unknown IBUPROFEN 12/05/2005 5 - Intolerance Comments: advil LATEX 06/14/2014 16 - Unknown PROZAC (FLUOXETINE HCL) 12/05/2005 5 - Intolerance SPECTAZOLE (ECONAZOLE NITRATE) 12/05/2005 5 - Intolerance WELLBUTRIN (BUPROPION HCL) 12/05/2005 5 - Intolerance Comments: CAUSES [employer] Date Reviewed: 11/17/2024 Reviewed by: Leidy Magana LPN - Fully Assessed Reason for Visit: Patient Question [7497] Prescriptions as of 02/18/2025 - atorvastatin (LIPITOR) 80 mg tablet Take 1 tablet by mouth once daily. - fenofibrate nanocrystallized (TRICOR) 48 mg tablet Take 1 tablet by mouth once daily. - omeprazole (PRILOSEC) 20 mg capsule Take 1 capsule by mouth daily before breakfast. 1/2 hr before meal. - zolpidem (AMBIEN) 5 mg tablet Take 5 mg by mouth at bedtime as needed. - gabapentin (NEURONTIN) 300 mg capsule Take 1 cap in AM and 1 cap in PM. - Bisacodyl (DULCOLAX) 5 mg tab Take 5 mg by mouth three times a day as needed for constipation. - lamoTRIgine (LAMICTAL) 150 mg tablet Take 300 mg by mouth daily at bedtime. - OLANZapine (ZYPREXA) 7.5 mg tablet Take 7.5 mg by mouth daily at bedtime. - cholecalciferol (VITAMIN D) 1,000 unit tab tablet Take 1,000 Units by mouth once daily. - docusate sodium (COLACE) 100 mg capsule Take 100 mg by mouth twice daily. - clonazePAM (KLONOPIN) 1 mg tablet Take 1 mg by mouth at bedtime as needed. - venlafaxine XR (EFFEXOR XR) 150 mg tr24 Take by mouth once daily. - DULoxetine (CYMBALTA) 60 mg capsule Take 60 mg by mouth twice daily. - FERROUS SULFATE (HIGH POTENCY IRON ORAL) Take 1 tablet by mouth once daily. 27 mg daily in the morning - cyanocobalamin (VITAMIN B-12) 500 mcg tablet Take 2 tablets by mouth once daily. - CARBATROL 300 MG 12 HR CAP Take 600 mg by mouth two times a day with meals. Facility-Administered Medications as of 02/18/2025 - propofol injection (DIPRIVAN) Problem List As Of Date 02/15/2025 Noted Resolved EPIDERMAL CYST--INFLAMED///SEBACEOUS CYST [L72.*07/29/2007 ACNE: Grade III to IV Inflammatory Nodulocystic*07/29/2007 SCAR AND FIBROSIS OF SKIN [L90.5] 07/29/2007 OPEN WOUND SITE NOS [T14.8XXA] 12/22/2007 Contact Dermatitis and Other Eczema, due to Uns*10/14/2009 Cystic Acne Scars [L90.5] 12/12/2010 Actinic Keratoses (Premalignant AK's) [L57.0] 02/24/2013 Neoplasm of uncertain behavior of skin [D48.5] 02/24/2013 Inflamed seborrheic keratosis [L82.0] 02/24/2013 Inverted follicular keratosis [L11.0] 02/24/2013 Melanocytic nevi of trunk [D22.5] 02/24/2013 Other seborrheic keratosis [L82.1] 02/24/2013 Actinic skin damage [L57.8] 02/24/2013 Cutaneous skin tags [L91.8] 02/24/2013 Sebaceous hyperplasia of face [L73.8] 04/09/2013 Milial cyst [L72.0] 04/09/2013 Postinflammatory skin changes [R23.8] 04/09/2013 Bipolar disorder (HCC) [F31.9] 06/09/2014 Anemia [D64.9] 06/09/2014 Hyperlipidemia [E78.5] Obesity, Class I, BMI (more content not included)... Normal [facility] MR/BMS.BPon 02-10-2025 MR/BMS.BP [address], [address] [place] [address] OFFICE VISIT Date of Service: 02/10/25 MR#: [id number] Acct: [id number] Name: JIMI SOTO Blair Rep #: [id number] : 1965 Provider: Dr. Martin Mehta se DO Age/Sex: 59/M Location: [facility] [place] Status: Signed Intake Vital Signs 11/18/24 13:55 02/07/25 15:31 02/10/25 12:58 Height 6 ft 2 in 6 ft 2 in 6 ft 2 in Weight: 243 lb BMI 31.1 BP 128/83 H Blood Pressure Location Lt brachial Position Sitting Respiration 16 Pulse 72 Pulse Source Monitor BP Intake Visit Reasons: 3 M FU Accompanied by: Sister Allergies bupropion (From Wellbutrin) Allergy (Verified 02/10/25 13:03) Other clarithromycin (From Biaxin) Allergy (Verified 02/10/25 13:03) Other divalproex sodium (From Depakote) Allergy (Verified 02/10/25 13:03) Other econazole (From Spectazole) Allergy (Verified 02/10/25 13:03) Other fluoxetine (From Prozac) Allergy (Verified 02/10/25 13:03) Other latex Adverse Reaction (Mild, Verified 02/10/25 13:03) Rash ibuprofen Adverse Reaction (Verified 02/10/25 13:03) Nausea/Vom/Diarrhea Medications ???Medication ???Instructions ???Recorded ???Confirmed ???Type fenofibrate nanocrystallized 48 mg 48 mg PO DAILY 05/08/16 02/10/25 History tablet omeprazole 20 mg capsule,delayed 20 mg PO DAILY 05/08/16 02/10/25 H istory release atorvastatin 80 mg tablet 80 mg PO QHS 12/28/21 02/10/25 His tory docusate sodium 100 mg capsule 200 mg PO BID 12/28/21 02/10/25 Hi story ferrous sulfate 27 mg iron tablet 27 mg PO DAILY 12/28/21 02/10/25 History gabapentin 300 mg capsule 300 mg PO QHS #14 caps 07/05/24 Rx lamotrigine 150 mg tablet 300 mg (2 x 150 mg) PO QHS 30 days 07/12/24 02/10/25 Rx #60 tabs bisacodyl 5 mg tablet 15 mg PO QHS PRN 09/16/24 02/10/25 History cholecalciferol (vitamin D3) 25 25 mcg PO QDAY 09/16/24 02/10/25 H istory mcg (1,000 unit) capsule clonazepam 1 mg tablet 1 mg PO QHS 30 days #30 tabs 09/1602/10/25 Rx cyanocobalamin (vitamin B-12) 1,000 mcg PO QDAY 09/16/24 5 History 1,000 mcg tablet carbamazepine 300 mg 600 mg (2 x 300 mg) PO BID #60 cap s 01/24/25 02/10/25 Rx capsule,extended release [id number] duloxetine 60 mg capsule,delayed 60 mg PO BID #60 caps 01/24/25 Rx release olanzapine 7.5 mg tablet 7.5 mg PO QHS #30 tabs 01/27/25 Rx venlafaxine 75 mg capsule,extended 75 mg PO DAILY #30 caps 02/10/25 02/10/25 Rx release 24 hr PFSH Medical History Seizure disorder Cognitive communication deficit Wears glasses Arthritis Low iron Restless legs Back pain Injury of head and neck Syncope Dietary restriction Oral hygiene poor History of hiatal hernia Bleeding hemorrhoid History of IBS Gastric reflux Non-smoker Shortness of breath on exertion Chronic cough Leg cramps History of pain when walking History of edema Decay, teeth High cholesterol HTN (hypertension) Bipolar 1 disorder Chronic kidney disease Surgical History S/P laparoscopic cholecystectomy ( 12/2021) History of bone marrow biopsy Hx of colonoscopy Hx of esophagogastroduodenoscopy History of excision of lesion S/P appendectomy Family History Father Cancer prostate cancer, skin cancer Hypertension Mother Diabetes Sister Kidney disease Seizures Social History Smoking Status: Never smoker alcohol intake: never substance use type: does not use HPI History of Present Illness History provided by: patient HPI: Jimi Soto is a 59 year old male who presents today for follow up evaluation. Presents today with his sister, Antnoia. Patient reports that things have been not the best. Has been having some worsening sleep in recent past. In general is only getting about 4 hours of sleep without the use of zolpidem. Feels like his thoughts are racing more often during the day. Does endorse some depressive symptoms but largley related to chronic pain symptoms. Had repeat MRI last week which per report has no significant change. Despite having stopped zolpidem did have an episode of near fall. Describes having some AH but states that it is very seldom. Does have some mild distress when these symptoms happen. Has not showered in nearly a full year. Apparently faced water shortages as a child, but began to repeat the behavior again as an adult. Voices difficulty physically getting in to the shower and perceived challenge in physically getting in to shower. Review of Systems Constitutional Reports: fatigue, (more content not included)... Normal [facility] MR/BMS.BPon 02-07-2025 MR/BMS.BP [facility] [address], [address] [place] [id number] OFFICE VISIT Date of Service: 02/07/25 MR#: [id number] Acct: [id number] Name: JIMI SOTO Rep #: [id number] : 1965 Provider: [facility] Shauna rivera Age/Sex: 59/M Location: [facility] [place]BP Status: Signed Intake Vital Signs 09/16/24 13:52 01/11/25 16:02 02/07/25 15:31 Height 6 ft 2 in 6 ft 2 in 6 ft 2 in BP Intake Visit Reasons: follow up Allergies bupropion (From Wellbutrin) Allergy (Verified 11/18/24 13:59) Other clarithromycin (From Biaxin) Allergy (Verified 11/18/24 13:59) Other divalproex sodium (From Depakote) Allergy (Verified 11/18/24 13:59) Other econazole (From Spectazole) Allergy (Verified 11/18/24 13:59) Other fluoxetine (From Prozac) Allergy (Verified 11/18/24 13:59) Other latex Adverse Reaction (Mild, Verified 11/18/24 13:59) Rash ibuprofen Adverse Reaction (Verified 11/18/24 13:59) Nausea/Vom/Diarrhea PFSH Medical History Seizure disorder Cognitive communication deficit Wears glasses Arthritis Low iron Restless legs Back pain Injury of head and neck Syncope Dietary restriction Oral hygiene poor History of hiatal hernia Bleeding hemorrhoid History of IBS Gastric reflux Non-smoker Shortness of breath on exertion Chronic cough Leg cramps History of pain when walking History of edema Decay, teeth High cholesterol HTN (hypertension) Bipolar 1 disorder Chronic kidney disease Surgical History S/P laparoscopic cholecystectomy ( 12/2021) History of bone marrow biopsy Hx of colonoscopy Hx of esophagogastroduodenoscopy History of excision of lesion S/P appendectomy Family History Father Cancer prostate cancer, skin cancer Hypertension Mother Diabetes Sister Kidney disease Seizures Social History Smoking Status: Never smoker alcohol intake: never substance use type: does not use HPI History of Present Illness HPI: Jimi Soto is a 59 year-old male returning for therapy. He reported frequent pain and fatigue as well as sleep difficulties. Jimi identified rumination related to government shut-down and potential impact on him. He discussed stressors related to potentially moving to a new place. Jimi reported that he had a recent MRI, which showed no changes from previous MRI. Encouraged verbalization of emotions while providing support. Normalized emotions. Worked on identifying coping thoughts with Jimi stating sister has reassured him that she will assist as needed. Worked on strategies for managing pain such as distraction or focusing away. No SI. Future-oriented. Exam Mental Status Exam - Psych Appearance casually dressed and adequately groomed Attitude cooperative, calm, engaged and pleasant Activity/Motor Behavior limited eye contact Speech regular rate, regular prosody and loud Mood anxious Affect blunted and anxious Thought Process linear, logical and coherent Thought Content no delusions and ruminations Suicidal Ideation none Homicidal Ideation none Attention intact Concentration intact Sensorium/Orientation awake, alert and oriented x3 Memory/Cognition other (Reports some problems with short-term memory.) Insight fair Judgement good Assessment Plan Assessment Plan (1) Bipolar disorder: Plan: BH therapy using CBT, DBT, and ACT interventions to address thought patterns contributing to mood symptoms and fluctuations and to teach coping skills. Continued psychiatric services to monitor mood symptoms and medication effectiveness. Call 911, call suicide prevention hotline, or go to ER if experiencing suicidal plan and intent and/or feels own safety cannot be ensured (2) Seizure disorder: Plan: Psychiatric monitoring and neurological services. Plan Goal 1 - Maintain mood stability. Objective 1 - Identify 3 early warning signs of cristofer or depression. Intervention - Provide psychoeducation about bipolar disorder, triggers,and relapse prevention. Objective 2 - Practice 2-3 coping strategies (grounding, breathing, structured scheduling, etc.) weekly. Intervention 1 - Stabilize daily routines and sleep-wake cycles. Objective 3 - Will identify and challenge at least 3 recurrent cognitive distortions. Intervention 1 - Identify links between thoughts, moods, and behaviors; challenging distorted beliefs. Visit Details Duration of visit (minutes): 60 Duration of counseling (minutes): 60 Total time (minutes): 60 Type of visit: psychotherapy and [id number] C[place] [address] PSYTX W PT 60 MINUTES Pat (more content not included)... Normal [facility] MRI BRAIN WO IVCONon 025 MRI BRAIN WO IVCON * * *Final Report* * * DATE OF EXAM: Feb 02 2025 12:05PM WRM 0294 - MRI BRAIN WO IVCON / PROCEDURE REASON: Cerebral amyloid angiopathy (CODE) * * * * Physician Interpretation * * * * EXAMINATION: MRI BRAIN WO IVCON CLINICAL HISTORY: Cerebral amyloid angiopathy TECHNIQUE: Routine noncontrast MRI protocol including diffusion images. MQ: [id number] COMPARISON: Brain MRI, 02/06/2024 RESULT: Acute Change: There is no evidence of restricted diffusion to suggest an acute infarct. Hemorrhage: Innumerable chronic microhemorrhages bilaterally with relative sparing of the deep de los santos nuclei, similar to previous. No new intracranial hemorrhage is identified. Mass Lesion/ Mass Effect: No evidence of an intracranial mass or extra-axial fluid collection. No significant mass effect. Chronic Change: Nonspecific T2 hyperintense signal in the white matter, similar to previous and likely secondary to chronic small vessel ischemic disease. Parenchyma: No significant volume loss for age. The brain parenchyma is otherwise within normal limits of signal intensity and morphology. Ventricles: Normal caliber and morphology. Skull Base: Hypothalamic and pituitary region are unremarkable. Craniocervical junction is normal. No significant marrow replacement process. Vasculature: Major intracranial arterial structures and dural venous sinuses show typical flow voids. Other: Left greater than right mastoid effusions. Scattered paranasal sinus mucosal thickening. The orbits and extracranial soft tissues are unremarkable. IMPRESSION: No acute intracranial pathology. Innumerable chronic microhemorrhages, similar to previous. Bundle [facility] Transcribe Date/Time: Feb 02 2025 12:31P Dictated by : SUHAS CASTILLO MD This examination was interpreted and the report reviewed and electronically signed by: SUHAS CASTILLO MD on Feb 02 2025 12:41PM EST [id number] Normal [facility] MR/BMS.BPon 01-11-2025 MR/BMS.BP [address], [address] [place] [id number] OFFICE VISIT Date of Service: 01/11/25 MR#: [id number] Acct: [id number] Name: CHARLESJIMI Rep #: [id number] : 1965 Provider: DIEDUONNE rivera Age/Sex: 59/M Location: [facility] [place].BP Status: Signed Intake Vital Signs 09/16/24 13:52 11/18/24 13:55 01/11/25 16:02 Height 6 ft 2 in 6 ft 2 in 6 ft 2 in Weight: 233 lb BMI 29.9 BP 132/85 H Blood Pressure Location Lt brachial Position Sitting Respiration 16 Pulse 64 Pulse Source Monitor BP Intake Visit Reasons: follow up Allergies bupropion (From Wellbutrin) Allergy (Verified 11/18/24 13:59) Other clarithromycin (From Biaxin) Allergy (Verified 11/18/24 13:59) Other divalproex sodium (From Depakote) Allergy (Verified 11/18/24 13:59) Other econazole (From Spectazole) Allergy (Verified 11/18/24 13:59) Other fluoxetine (From Prozac) Allergy (Verified 11/18/24 13:59) Other latex Adverse Reaction (Mild, Verified 11/18/24 13:59) Rash ibuprofen Adverse Reaction (Verified 11/18/24 13:59) Nausea/Vom/Diarrhea PFSH Medical History Seizure disorder Cognitive communication deficit Wears glasses Arthritis Low iron Restless legs Back pain Injury of head and neck Syncope Dietary restriction Oral hygiene poor History of hiatal hernia Bleeding hemorrhoid History of IBS Gastric reflux Non-smoker Shortness of breath on exertion Chronic cough Leg cramps History of pain when walking History of edema Decay, teeth High cholesterol HTN (hypertension) Bipolar 1 disorder Chronic kidney disease Surgical History S/P laparoscopic cholecystectomy ( 12/2021) History of bone marrow biopsy Hx of colonoscopy Hx of esophagogastroduodenoscopy History of excision of lesion S/P appendectomy Family History Father Cancer prostate cancer, skin cancer Hypertension Mother Diabetes Sister Kidney disease Seizures Social History Smoking Status: Never smoker alcohol intake: never substance use type: does not use HPI History of Present Illness HPI: Jimi Soto is a 59 year-old male returning for BH therapy. He reported many physical ailments from a past brain bleed and having to adjust his day based on how he feels physically. Jimi identified upcoming medical appointments and plan to eventually move. He stated finances were a stressor. Jimi reported that his sister recently had her first grandchild, which appeared to trigger memories of his child being born and his divorce. He stated that his mood symptoms were well managed. Encouraged verbalization of emotions while providing support. Reinforced mindfulness of his physical symptoms and adjustment of his day to his symptoms. Worked on thought patterns about self using CBT interventions. Worked on feeling related to divorce exploring what assisted him in coping with the divorce. Discussed strategies he is using to manage his finances. Discussed social activities and impact on his mood. No reports of SI. Future-oriented. Exam Mental Status Exam - Psych Appearance casually dressed and adequately groomed Attitude cooperative, engaged and pleasant Activity/Motor Behavior limited eye contact Speech regular rate, regular prosody and loud Mood OK Affect blunted Thought Process linear, logical and coherent Thought Content no delusions Suicidal Ideation none Homicidal Ideation none Attention intact Concentration intact Sensorium/Orientation awake, alert and oriented x3 Memory/Cognition other (Reports some problems with short-term memory.) Insight fair Judgement good Assessment Plan Assessment Plan (1) Bipolar disorder: Plan: BH therapy using CBT, DBT, and ACT interventions to address thought patterns contributing to mood symptoms and fluctuations and to teach coping skills. Continued psychiatric services to monitor mood symptoms and medication effectiveness. Call 911, call suicide prevention hotline, or go to ER if experiencing suicidal plan and intent and/or feels own safety cannot be ensured (2) Seizure disorder: Plan: Psychiatric monitoring and neurological services. Plan Goal 1 - Maintain mood stability. Objective 1 - Identify 3 early warning signs of cristofer or depression. Intervention - Provide psychoeducation about bipolar disorder, triggers,and relapse prevention. Objective 2 - Practice 2-3 coping strategies (grounding, breathing, structured scheduling, etc.) weekly. Intervention 1 - Stabilize daily routines and sleep-wake cycles. Objective 3 - Will identify and c (more content not included)... Normal [facility] 25-HYDROXY D2+D3on 5 25-hydroxyvitamin D3 [Mass/Vol] 39.1 ng/mL Normal 30.0-100.0 [facility] Comment on above: Order Comment: Speci men Type: BLOOD SPECIMENOrdering Facility: [address] Address: [address] [place] [address] [place] [address] Result Comment: Defi cient: <20.1 ng/mL Insufficient: 20.1 - 29.9 ng/mL Sufficient: 30.0 - 100.0 ng/mL Toxic: >150.0 ng/mL Reference: Kassi SORENSON, N Engl J Med (2007)[id number]:266-81 This test was developed and its performance characteristics determined by the Pathology and Laboratory Medicine [place] at the [facility]. The U.S. Food and Drug Administration has not approved or cleared this test, however, FDA clearance or approval is not currently required for clinical use. Performed By: #### D 2D3 ####[facility] LABCLIA [id number] [facility] [place] [address] [place] Vitamin D2 [Mass/Vol] <5.0 Normal [facility] Comment on above: Order Comment: Speci men Type: BLOOD SPECIMENOrdering Facility: oster Address: [address] [place] [address] Performed By: #### D 2D3 ####[facility] LABCLIA [id number] [facility] [address] [place] [address] [place] Vitamin D3 [Mass/Vol] 39.1 ng/mL Normal [facility] Comment on above: Order Comment: Speci men Type: BLOOD SPECIMENOrdering Facility: Address: [address] [place] [place] [address] Performed By: #### D 2D3 ####[facility] LABCLIA [id number] [facility] [address] [place] [address] [place] CBC panel Auto (Bld)on 12-20 Erythrocyte distribution width (RBC) [Ratio] 13.1 % Normal 11.5-15.0 [facility] Comment on above: Order Comment: Speci men Type: BLOOD SPECIMENOrdering Facility: Address: [address] [place] [address] Performed By: #### 5 8410-2 ####[facility] LABCLIA [id number] [facility] [address] [place] [address] [place] Hematocrit (Bld) [Volume fraction] 36.0 % Low 39.0-51.0 [facility] Comment on above: Order Comment: Speci men Type: BLOOD SPECIMENOrdering Facility: Address: [address] [place] [address] Performed By: #### 5 8410-2 ####[facility] LABCLIA [id number] [place] [address] [place] Hemoglobin (Bld) [Mass/Vol] 12.2 g/dL Low 13.0-17.0 [facility] Comment on above: Order Comment: Speci men Type: BLOOD SPECIMENOrdering Facility: Address: [facility] [place] [id number] Performed By: #### 5 8410-2 ####[facility] LABCLIA [id number] [place] [address] [place] MCH (RBC) [Entitic mass] 35.9 pg High 26.0-34.0 [facility] Comment on above: Order Comment: Speci men Type: BLOOD SPECIMENOrdering Facility: Address: [facility] [place] [address] Performed By: #### 5 8410-2 ####[facility] LABIA [id number] [place] [id number] [place] MCHC (RBC) [Mass/Vol] 33.9 g/dL Normal 30.5-36.0 [facility] Comment on above: Order Comment: Speci men Type: BLOOD SPECIMENOrdering Facility: Address: [address] [place] [address] Performed By: #### 5 8410-2 ####[facility] LABCLIA [id number] [place] [address] [place] MCV (RBC) [Entitic vol] 105.9 fL High 80.0-100.0 [facility] Comment on above: Order Comment: Speci men Type: BLOOD SPECIMENOrdering Facility: Address: [facility] [place] [id number] Performed By: #### 5 8410-2 ####[facility] LABCLIA [id number] [place] [address] [place] Nucleated RBC (Bld) [#/Vol] 10*3/uL Normal <0.01 [facility] Comment on above: Order Comment: Speci men Type: BLOOD SPECIMENOrdering Facility: [facility] [place] Address: [address] [place] [address] Performed By: #### 5 8410-2 ####[facility] LABCLIA [id number] [place] [address] [place] Platelet mean volume (Bld) [Entitic vol] 10.3 fL Normal 9.0-12.7 [facility] Comment on above: Order Comment: Speci men Type: BLOOD SPECIMENOrdering Facility: [facility] [place] Address: [address] [place] [address] Performed By: #### 5 8410-2 ####[facility] LABCLIA [id number] [place] [address] [place] Platelets (Bld) [#/Vol] 207 10*3/uL Normal 150-400 [facility] Comment on above: Order Comment: Speci men Type: BLOOD SPECIMENOrdering Facility: [facility] [place] Address: [facility] [place] [address] Performed By: #### 5 8410-2 ####[facility] LABCLIA [id number] [place] [address] [place] RBC (Bld) [#/Vol] 3.40 10*6/uL Low 4.20-6.00 [facility] Comment on above: Order Comment: Speci men Type: BLOOD SPECIMENOrdering Facility: MIQUEL [place] Address: [facility] [place] [address] Performed By: #### 5 8410-2 ####[facility] LABCLIA [id number] [place] [address] [place] WBC (Bld) [#/Vol] 4.75 10*3/uL Normal 3.70-11.00 [facility] Comment on above: Order Comment: Speci men Type: BLOOD SPECIMENOrdering Facility: oster Address: [address] [place] [address] Performed By: #### 5 8410-2 ####[facility] LABCLIA [id number] [address] [place] [address] [place] PTH-Intact SerPl-mCncon 11-27 Parathyrin.intact [Mass/Vol] 46 pg/mL Normal 15-65 [facility] Comment on above: Order Comment: Speci men Type: BLOOD SPECIMENOrdering Facility: Address: [facility] [place] [address] Performed By: #### 2 731-8, 68260-2 ####[facility] LABIA [id number] [address] [place] [address] [place] Prot/Creat Uron 12-20-2024 Protein/Creatinine (U) [Mass ratio] 0.09 mg/mg Normal <0.15 [facility] Comment on above: Order Comment: Speci men Type: URINE SPECIMENOrdering Facility: oster Address: [facility] [place] [address] Result Comment: Adul t Proteinuria Categories: <0.15 mg/mg is considered normal to mildly increased 0.15 - 0.50 mg/mg is considered moderately increased >0.50 mg/mg is considered severely increased KDIGO. (2013). KDIGO 2012 Clinical Practice Guideline for the Evaluation and Management of Chronic Kidney Disease. Official Journal of the International Society of Nephrology, 3(1), 1-150. Performed By: #### 2 890-2 ####[facility] LABCLIA [id number] [address] [place] [address] [place] Protein/Creatinine (U) [Mass ratio]on 12-20-2024 Creatinine (U) [Mass/Vol] 91.9 mg/dL Normal 20.0-300.0 [facility] Comment on above: Order Comment: Speci men Type: URINE SPECIMENOrdering Facility: Address: [address] [place] [address] Performed By: #### 2 890-2 ####[facility] LABCLIA [id number] [facility] [address] [place] [address] [place] Protein (U) [Mass/Vol] 8 mg/dL Normal 0-20 [facility] Comment on above: Order Comment: Speci men Type: URINE SPECIMENOrdering Facility: Address: [facility] [place] [address] Performed By: #### 2 890-2 ####[facility] LABCLIA [id number] [facility] [address] [place] [address] [place] Renal function 2000 panelon 12-20-2024 Albumin [Mass/Vol] 4.3 g/dL Normal 3.9-4.9 [facility] Comment on above: Order Comment: Speci men Type: BLOOD SPECIMENOrdering Facility: Address: [facility] [place] [address] Performed By: #### 2 731-8, 12016-8 ####[facility] LABCLIA [id number] [address] [place] [address] [place] Anion gap [Moles/Vol] 9 mmol/L Normal 8-15 [facility] Comment on above: Order Comment: Speci men Type: BLOOD SPECIMENOrdering Facility: Address: [facility] [place] [address] Performed By: #### 2 731-8, 01609-9 ####[facility] LABCLIA [id number] [address] [place] [address] [place] Calcium [Mass/Vol] 9.3 mg/dL Normal 8.5-10.2 [facility] Comment on above: Order Comment: Speci men Type: BLOOD SPECIMENOrdering Facility: Address: [facility] [place] [address] Performed By: #### 2 731-8, 05190-5 ####[facility] LABCLIA [id number] [facility] [address] [place] [address] [place] Chloride [Moles/Vol] 105 mmol/L Normal 98-107 [facility] Comment on above: Order Comment: Speci men Type: BLOOD SPECIMENOrdering Facility: Address: [address] [place] [address] Performed By: #### 2 731-8, 18092-8 ####[facility] LABCLIA [id number] [place] [address] [place] CO2 [Moles/Vol] 28 mmol/L Normal 22-30 [facility] Comment on above: Order Comment: Speci men Type: BLOOD SPECIMENOrdering Facility: Address: [facility] [place] [address] Performed By: #### 2 731-8, 43682-3 ####[facility] LABCLIA [id number] [place] [id number] [place] [facility] Creatinine [Mass/Vol] 1.48 mg/dL High 0.73-1.22 [facility] Comment on above: Order Comment: Speci men Type: BLOOD SPECIMENOrdering Facility: Address: [address] [place] [address] Performed By: #### 2 731-8, 02290-2 ####[facility] LABCLIA [id number] [place] [id number] [place] eGFRcr SerPlBld CKD-EPI 2020 53 mL/min/1.73m??? Low >=60 [facility] Comment on above: Order Comment: Speci men Type: BLOOD SPECIMENOrdering Facility: Address: [address] [place] [address] Result Comment: Arnie mated Glomerular Filtration Rate (eGFR) is calculated using the 2020 CKD-EPI creatinine equation. This equation utilizes serum creatinine, sex, and age as parameters. The creatinine assay has traceable calibration to isotope dilution-mass spectrometry. Refer to KDIGO guidelines for clinical interpretation. In patients with unstable renal function, e.g. those with acute kidney injury, the eGFR may not accurately reflect actual GFR. Performed By: #### 2 731-8, 13021-0 ####[facility] LABCLIA [id number] [address] [address] [place] Glucose [Mass/Vol] 104 mg/dL High 74-99 [facility] Comment on above: Order Comment: Speci men Type: BLOOD SPECIMENOrdering Facility: [address] Address: [address] [place] [address] Result Comment: The [place] Diabetes Association (ADA) provides guidance for cutoff values for fasting glucose and random glucose. The ADA defines fasting as no caloric intake for at least 8 hours. Fasting plasma glucose results between 100 to 125 mg/dL indicate increased risk for diabetes (prediabetes). Fasting plasma glucose results greater than or equal to 126 mg/dL meet the criteria for diagnosis of diabetes. In the absence of unequivocal hyperglycemia, results should be confirmed by repeat testing. In a patient with classic symptoms of hyperglycemia or hyperglycemic crisis, random plasma glucose results greater than or equal to 200 mg/dL meet the criteria for diagnosis of diabetes. Reference: Standards of Medical Care in Diabetes 2016, [place] [employer]. Diabetes Care. 2016.39(Suppl 1). Performed By: #### 2 731-8, 07132-9 ####[facility] LABIA [id number] [address] [address] [place] Phosphate [Mass/Vol] 2.5 mg/dL Low 2.7-4.8 [facility] Comment on above: Order Comment: Speci men Type: BLOOD SPECIMENOrdering Facility: [address] Address: [address] [place] [address] Performed By: #### 2 731-8, 86884-8 ####[facility] LABIA [id number] [address] [address] [place] Potassium [Moles/Vol] 4.8 mmol/L Normal 3.7-5.1 [facility] Comment on above: Order Comment: Speci men Type: BLOOD SPECIMENOrdering Facility: [address] Address: [address] [place], [place] [address] Performed By: #### 2 731-8, 97863-0 ####[facility] LABCLIA [id number] [place] [address] [place] Sodium [Moles/Vol] 142 mmol/L Normal 136-144 [facility] Comment on above: Order Comment: Speci men Type: BLOOD SPECIMENOrdering Facility: [facility] Robinson Address: [address] [place] [address] Performed By: #### 2 731-8, 25370-6 ####[facility] LABIA [id number] [place] [address] [place] Urea nitrogen [Mass/Vol] 16 mg/dL Normal 9-24 [facility] Comment on above: Order Comment: Speci men Type: BLOOD SPECIMENOrdering Facility: oster Address: [address] [place] [address] Performed By: #### 2 731-8, 16789-1 ####[facility] LABIA [id number] [place] [address] [place] POTASSIUMon 11-24-2024 Potassium [Moles/Vol] 4.2 mmol/L Normal 3.7-5.1 [facility] Comment on above: Order Comment: Speci men Type: BLOOD SPECIMENOrdering Facility: [facility] Address: [address] [place] [address] Performed By: #### K 1 ####[facility] LABIA [id number] [place] [address] [place] PVR ANK PRESS KENDRICK VAS LABon 11-24-2024 PVR ANK PRESS [facility] LAB Non-Invasive Vascular Laboratory [facility] Lower Extremity Arterial Physiology Study Bilateral/Complete Date of service/time: 11/24/2024 12:24:35 PM Name: JIMI SOTO Date of : 1965 Age: 59 years Gender: M Clinical Indication Decreased pulses. TECHNIQUE -------- An arterial physiological examination was performed, including measurement of blood pressures using continuous wave Doppler and recording of plethysmographic with or without Doppler waveforms at the below-mentioned limb segments. FINDINGS -------- RIGHT SIDE AT REST Right Doppler Waveforms Dorsalis pedis: Multiphasic. Post tibial: Multiphasic. Right Pressures Brachial: 128 mmHg Ankle dorsalis pedis: 170 mmHg HAJA: 1.31 Ankle posterior tibial: 170 mmHg HAJA: 1.31 Digit: 157 mmHg Right PVR Waveforms Ankle: Normal. Transmetatarsal: Normal. Digit: Normal. LEFT SIDE AT REST Left Doppler Waveforms Dorsalis pedis: Multiphasic. Post tibial: Multiphasic. Left Pressures Brachial: 130 mmHg Ankle dorsalis pedis: 162 mmHg HAJA: 1.25 Ankle posterior tibial: 169 mmHg HAJA: 1.30 Digit: 152 mmHg Left PVR Waveforms Ankle: Normal. Transmetatarsal: Normal. Digit: Normal. IMPRESSION RIGHT SIDE Resting right ankle brachial index: 1.31 Right toe brachial index: 1.21 Normal ankle brachial index at rest in the right leg. Normal toe brachial index at rest in the right leg. Right ankle: Normal at rest. LEFT SIDE Resting left ankle brachial index: 1.30 Left toe brachial index: 1.17 Normal ankle brachial index at rest in the left leg. Normal toe brachial index at rest in the left leg. Left ankle: Normal at rest. Technologist: Marcie Jennings T Ordering physician: TESSIE DEAN Interpreting physician: Raul Marinelli MD, JENNIFER Final CC [employer] Image : [id number] See Link below for Image Normal [facility] MR/BMS.BPon 11-18-2024 MR/BMS.BP [address], [address] [place] [address] OFFICE VISIT Date of Service: 11/18/24 MR#: [id number] Acct: [id number] Name: JIMI SOTO Rep #: [id number] : 1965 Provider: Dr. Martin Mehta se, DO Age/Sex: 59/M Location: [facility] [place].BP Status: Signed Intake Vital Signs 09/16/24 13:52 09/30/24 06:35 11/18/24 13:55 Height 6 ft 2 in 6 ft 2 in 6 ft 2 in Weight: 233 lb BMI 29.9 BP 143/90 H 132/85 H Blood Pressure Location Lt brachial Lt brachial Position Sitting Sitting Respiration 16 Pulse 76 64 Pulse Source Monitor Monitor BP Intake Visit Reasons: 2 M FU Accompanied by: Sister Allergies bupropion (From Wellbutrin) Allergy (Verified 11/18/24 13:59) Other clarithromycin (From Biaxin) Allergy (Verified 11/18/24 13:59) Other divalproex sodium (From Depakote) Allergy (Verified 11/18/24 13:59) Other econazole (From Spectazole) Allergy (Verified 11/18/24 13:59) Other fluoxetine (From Prozac) Allergy (Verified 11/18/24 13:59) Other latex Adverse Reaction (Mild, Verified 11/18/24 13:59) Rash ibuprofen Adverse Reaction (Verified 11/18/24 13:59) Nausea/Vom/Diarrhea Medications ???Medication ???Instructions ???Recorded ???Confirmed ???Type fenofibrate nanocrystallized 48 mg 48 mg PO DAILY 05/08/16 11/18/24 History tablet omeprazole 20 mg capsule,delayed 20 mg PO DAILY 05/08/16 11/18/24 H istory release atorvastatin 80 mg tablet 80 mg PO QHS 12/28/21 11/18/24 His tory docusate sodium 100 mg capsule 200 mg PO BID 12/28/21 11/18/24 Hi story ferrous sulfate 27 mg iron tablet 27 mg PO DAILY 12/28/21 11/18/24 History gabapentin 300 mg capsule 300 mg PO QHS #14 caps 07/05/24 Rx lamotrigine 150 mg tablet 300 mg (2 x 150 mg) PO QHS 30 days 07/12/24 11/18/24 Rx #60 tabs venlafaxine 150 mg 150 mg PO DAILY #30 caps 07/12/24 11/18/24 Rx capsule,extended release 24 hr bisacodyl 5 mg tablet 15 mg PO QHS PRN 09/16/24 11/18/24 History cholecalciferol (vitamin D3) 25 25 mcg PO QDAY 09/16/24 11/18/24 H istory mcg (1,000 unit) capsule clonazepam 1 mg tablet 1 mg PO QHS 30 days #30 tabs 09/1611/18/24 Rx cyanocobalamin (vitamin B-12) 1,000 mcg PO QDAY 09/16/24 5 History 1,000 mcg tablet duloxetine 60 mg capsule,delayed 60 mg PO BID #60 caps 09/28/24 Rx release olanzapine 7.5 mg tablet 7.5 mg PO QHS #30 tabs 11/02/24 Rx carbamazepine 300 mg 600 mg (2 x 300 mg) PO BID #60 cap s 11/05/24 11/18/24 Rx capsule,extended release [id number] zolpidem 5 mg tablet 5 mg PO QHS 30 days #30 tabs 11/0511/18/24 Rx PFSH Medical History Seizure disorder Cognitive communication deficit Wears glasses Arthritis Low iron Restless legs Back pain Injury of head and neck Syncope Dietary restriction Oral hygiene poor History of hiatal hernia Bleeding hemorrhoid History of IBS Gastric reflux Non-smoker Shortness of breath on exertion Chronic cough Leg cramps History of pain when walking History of edema Decay, teeth High cholesterol HTN (hypertension) Bipolar 1 disorder Chronic kidney disease Surgical History S/P laparoscopic cholecystectomy ( 12/2021) History of bone marrow biopsy Hx of colonoscopy Hx of esophagogastroduodenoscopy History of excision of lesion S/P appendectomy Family History Father Cancer prostate cancer, skin cancer Hypertension Mother Diabetes Sister Kidney disease Seizures Social History Smoking Status: Never smoker alcohol intake: never substance use type: does not use HPI History of Present Illness History provided by: patient HPI: Jimi Soto is a 59 year old male who presents today for follow up evaluation. Presents today with his sister, Antonia. Did see neurologist about 2 weeks ago. Had improvements in neurologic conditions. Will have a repeat MRI in January. Did complete a PHQ-9 as part of his screening eval and was feeling much more depressed prior. Did reduce to 5 mg of zolpidem, and did attempt to fully taper medication but felt like he started to sleep worse so went back to taking 5 mg zolpidem. Will be having a home sleep study in the near future. Did try to increase gabapentin during the day but then felt even more tired. Has had some occasional AH, specifically hearing voice of dad outside of his apartment. Will also sometimes feel as though he hears the buzzer to the door. But upon further history does seem to be a misinterpretation of external noises like the TV. Recently saw podiatry for a bone spur and was found to have weak pulses. Salas moreno (more content not included)... [facility] Office Visit (HARRYWS ) JMII SOTO ([id number]) 1965 M Date Time Provider Department 11/17/24 2:00 PM KRISTYNLOGROSE MARIE ISRAEL During your visit today, we recorded the following information about you: Pulse Respiration Blood pressure Weight 88/minute 18/minute 122/86 106.1 kg Rose Marie Johns APRN.CNP 11/17/2024 4:23 PM Signed 11/17/2024 Patient presents with: F/U 6 months SUBJECTIVE: This is a 59 year old that is here today for Above Complaints.. Following with Dr. Dean for neuropathy and will be having US this months CKD: tries to eat low salt diet and stay well hydrated, Avoids NSAID products GERD: taking Pantoprazole as prescribed HYPERLIPIDEMIA: Taking atorvastatin as prescribed without side effects. Tries to eat a low cholesterol diet Bipolar: Follows with Dr. Daniel- has follow-up tomorrow. Ambien decreased recently to 5 mg due to chronic fatigue. Taking medications as prescribed Follows with Dr. Joya, neurology for a hx of cognitive decline, hx of cerebral hemorrhage, and cerebral amyloid angiopathy. Last office visit on 11/05/2024. Will be following up with another neurologist and have repeat MRI in January. PAST MEDICAL HISTORY Diagnosis Date Allergy to environmental factors Dr. Fernandes Anemia Bipolar 1 disorder (HCC) Dr. Stahl Cerebral hemorrhage (HCC) Dr. Joya, Dr. Villavicencio Chronic kidney disease (CKD), stage III (moderate) ([facility]) Dr. Arthur Cognitive decline DDD (degenerative disc disease), lumbar Essential hypertension Family history of prostate cancer in father GERD (gastroesophageal reflux disease) Hx of gallstones s/p cholecystectomy Hyperlipidemia Internal hemorrhoids Irritable bowel syndrome Kidney dysfunction LBBB (left bundle branch block) incomplete. Negative echo in 2017. Lumbar spinal stenosis 07/27/2024 OA (osteoarthritis) of knee Obesity (BMI 30.0-34.9) Vitamin D deficiency ALLERGIES Biaxin [Clarithromycin], Depakote [Divalproex Sodium], Fluoxetine, Ibuprofen, Latex, Prozac [Fluoxetine Hcl], Spectazole [Econazole Nitrate], and Wellbutrin [Bupropion Hcl] MEDICATIONS Current Outpatient Medications Medication Sig zolpidem (AMBIEN) 5 mg tablet Take 5 mg by mouth at bedtime as needed. gabapentin (NEURONTIN) 300 mg capsule Take 1 cap in AM and 1 cap in PM. Bisacodyl (DULCOLAX) 5 mg tab Take 5 mg by mouth three times a day as needed for constipation. lamoTRIgine (LAMICTAL) 150 mg tablet Take 300 mg by mouth daily at bedtime. OLANZapine (ZYPREXA) 7.5 mg tablet Take 7.5 mg by mouth daily at bedtime. cholecalciferol (VITAMIN D) 1,000 unit tab tablet Take 1,000 Units by mouth once daily. atorvastatin (LIPITOR) 80 mg tablet Take 1 tablet by mouth once daily. fenofibrate nanocrystallized (TRICOR) 48 mg tablet Take 1 tablet by mouth once daily. omeprazole (PRILOSEC) 20 mg capsule Take 1 capsule by mouth daily before breakfast. 1/2 hr before meal. docusate sodium (COLACE) 100 mg capsule Take 100 mg by mouth twice daily. clonazePAM (KLONOPIN) 1 mg tablet Take 1 mg by mouth at bedtime as needed. venlafaxine XR (EFFEXOR XR) 150 mg tr24 Take by mouth once daily. DULoxetine (CYMBALTA) 60 mg capsule Take 60 mg by mouth twice daily. FERROUS SULFATE (HIGH POTENCY IRON ORAL) Take 1 tablet by mouth once daily. 27 mg daily in the morning cyanocobalamin (VITAMIN B-12) 500 mcg tablet Take 2 tablets by mouth once daily. CARBATROL 300 MG 12 HR CAP Take 600 mg by mouth two times a day with meals. No current facility-administered medications for this visit. Facility-Administered Medications Ordered in Other Visits Medication Dose Route Frequency propofol injection (DIPRIVAN) INTRAVENOUS PRN Medications and allergies reviewed by this provider. SOCIAL HISTORY Social History Tobacco Use Smoking status: Never Smokeless tobacco: Never Substance Use Topics Alcohol use: No Drug use: No REVIEW OF SYSTEMS All other reviewed and negative other than HPI. OBJECTIVE: BP 122/86 Pulse 88 Resp 18 Wt 106.1 kg (233 lb 12.8 oz) SpO2 96% BMI 32.61 kg/m? . Vital signs reviewed by this provider. APPEARANCE Well appearing, alert, in no acute distress, well-hydrated, well nourished. EYES conjunctiva and sclera normal. HEART RRR with normal S1 and S2, no murmurs, no gallops, no JVD appreciated LUNG clear to auscultation. No wheezes, rhonchi or rales EXTREMITIES Extremities normal, No deformities, No skin discoloration, and No edema SKIN Skin color, texture, turgor normal, no suspicious rashes or lesions Latest Ref [facility] 05/19/2024 Protein, Total 6.3 - 8.0 g/dL 6.6 Albumin 3.9 - 4.9 g/dL 4.3 Calcium 8.5 - 10.2 mg/dL 9.4 Bilirubin, Total 0.2 - 1.3 mg/dL 0.2 Alkaline Phosphatase 38 - 113 U/L 76 AST 14 - 40 U/L 18 ALT 10 - 54 U/L 14 Glucose 74 - 99 mg/dL 99 BUN 9 - 24 mg/dL 16 Creatinine 0.73 - 1.22 mg/dL 1.46 (H) Sodium 136 - (more content not included)... Normal [facility] metabolic 2000 panelon 11-17-2024 Albumin [Mass/Vol] 4.3 g/dL Normal 3.9-4.9 [facility] Comment on above: Order Comment: Speci men Type: BLOOD SPECIMENOrdering Facility: [facility] Address: [address] [place] [address] Performed By: #### 2 4323-8 ####[facility] LABCLIA [id number] [place] [id number] [place] ALP [Catalytic activity/Vol] 71 U/L Normal 38-113 [facility] Comment on above: Order Comment: Speci men Type: BLOOD SPECIMENOrdering Facility: [facility] Address: [address] [place] [address] Performed By: #### 2 4323-8 ####[facility] LABCLIA [id number] [place] [address] [place] ALT [Catalytic activity/Vol] 12 U/L Normal 10-54 [facility] Comment on above: Order Comment: Speci men Type: BLOOD SPECIMENOrdering Facility: [facility] Address: [address] [place] [address] Performed By: #### 2 4323-8 ####[facility] LABCLIA [id number] [place] [id number] [place] Anion gap [Moles/Vol] 13 mmol/L Normal 8-15 [facility] Comment on above: Order Comment: Speci men Type: BLOOD SPECIMENOrdering Facility: [facility] Address: [address] [place] [address] Performed By: #### 2 4323-8 ####[facility] LABCLIA [id number] [facility] [address] [place] [id number] [place] AST [Catalytic activity/Vol] 21 U/L Normal 14-40 [facility] Comment on above: Order Comment: Speci men Type: BLOOD SPECIMENOrdering Facility: [facility] Address: [address] [place] [address] Performed By: #### 2 4323-8 ####[facility] LABCLIA [id number] [facility] [address] [place] [address] [place] Bilirubin [Mass/Vol] 0.2 mg/dL Normal 0.2-1.3 [facility] Comment on above: Order Comment: Speci men Type: BLOOD SPECIMENOrdering Facility: [facility] Address: [address] [place] [address] Performed By: #### 2 4323-8 ####[facility] LABCLIA [id number] [facility] [address], [facility]95 [place] Calcium [Mass/Vol] 9.6 mg/dL Normal 8.5-10.2 [facility] Comment on above: Order Comment: Speci men Type: BLOOD SPECIMENOrdering Facility: [facility] Address: [address] [place] [address] Performed By: #### 2 4323-8 ####[facility] LABCLIA [id number] [facility] [address], [facility]95 [place] Chloride [Moles/Vol] 105 mmol/L Normal 98-107 [facility] Comment on above: Order Comment: Speci men Type: BLOOD SPECIMENOrdering Facility: [facility] Address: [address] [place] [address] Performed By: #### 2 4323-8 ####[facility] LABCLIA [id number] [facility] [address], [facility]95 [place] CO2 [Moles/Vol] 24 mmol/L Normal 22-30 [facility] Comment on above: Order Comment: Speci men Type: BLOOD SPECIMENOrdering Facility: [facility] Address: [address] [place], [place] [address] Performed By: #### 2 4323-8 ####[facility] LABCLIA [id number] [facility] [address] [place] [address] [place] Creatinine [Mass/Vol] 1.49 mg/dL High 0.73-1.22 [facility] Comment on above: Order Comment: [place] Type: BLOOD SPECIMENOrdering Facility: [facility] Address: [address] [place] [address] Performed By: #### 2 4323-8 ####[facility] LABCLIA [id number] [place] [id number] [place] eGFRcr SerPlBld CKD-EPI 2020 53 mL/min/1.73m??? Low >=60 [facility] Comment on above: Order Comment: [place] Type: BLOOD SPECIMENOrdering Facility: [facility] Address: [address] [place] [address] Result Comment: Arnie mated Glomerular Filtration Rate (eGFR) is calculated using the 2020 CKD-EPI creatinine equation. This equation utilizes serum creatinine, sex, and age as parameters. The creatinine assay has traceable calibration to isotope dilution-mass spectrometry. Refer to KDIGO guidelines for clinical interpretation. In patients with unstable renal function, e.g. those with acute kidney injury, the eGFR may not accurately reflect actual GFR. Performed By: #### 2 4323-8 ####[facility] LABCLIA [id number] [place] [address] [place] Glucose [Mass/Vol] 92 mg/dL Normal 74-99 [facility] Comment on above: Order Comment: [place] Type: BLOOD SPECIMENOrdering Facility: [facility] Address: [address] [place] [address] Result Comment: The [place] Diabetes [employer] (ADA) provides guidance for cutoff values for fasting glucose and random glucose. The ADA defines fasting as no caloric intake for at least 8 hours. Fasting plasma glucose results between 100 to 125 mg/dL indicate increased risk for diabetes (prediabetes). Fasting plasma glucose results greater than or equal to 126 mg/dL meet the criteria for diagnosis of diabetes. In the absence of unequivocal hyperglycemia, results should be confirmed by repeat testing. In a patient with classic symptoms of hyperglycemia or hyperglycemic crisis, random plasma glucose results greater than or equal to 200 mg/dL meet the criteria for diagnosis of diabetes. Reference: Standards of Medical Care in Diabetes 2016, [place] [employer]. Diabetes Care. 2016.39(Suppl 1). Performed By: #### 2 4323-8 ####[facility] LABCLIA [id number] [address] [place] [address] [place] Potassium [Moles/Vol] 5.4 mmol/L High 3.7-5.1 [facility] Comment on above: Order Comment: Speci men Type: BLOOD SPECIMENOrdering Facility: [facility] Address: [address] [place] [address] Performed By: #### 2 4323-8 ####[facility] LABCLIA [id number] [address], [facility]95 [place] Protein [Mass/Vol] 6.7 g/dL Normal 6.3-8.0 [facility] Comment on above: Order Comment: Speci men Type: BLOOD SPECIMENOrdering Facility: [facility] Address: [address] [place] [address] Performed By: #### 2 4323-8 ####[facility] LABIA [id number] [place] [address] [place] Sodium [Moles/Vol] 142 mmol/L Normal 136-144 [facility] Comment on above: Order Comment: Speci men Type: BLOOD SPECIMENOrdering Facility: [facility] Address: [address] [place] [address] Performed By: #### 2 4323-8 ####[facility] LABCLIA [id number] [address] [place] [address] [place] Urea nitrogen [Mass/Vol] 11 mg/dL Normal 9-24 [facility] Comment on above: Order Comment: Speci men Type: BLOOD SPECIMENOrdering Facility: [facility] Address: [address] [place], [place] [address] Performed By: #### 2 4323-8 ####[facility] LABCLIA [id number] [address] [place] [address] [place] CNOVon 11-05-2024 [facility] Office Visit (NEMOWS ) JIMI SOTO ([id number]) 1965 Date Time Provider Department 11/05/24 2:20 PM KEL JOYA JR During your visit today, we recorded the following information about you: Pulse Respiration Blood pressure Weight 73/minute 16/minute 130/90 106.5 kg Kel Joya Jr., MD 11/05/2024 3:20 PM Signed ESTABLISHED PATIENT VISIT CHIEF COMPLAINT: Follow Up HISTORY OF PRESENT ILLNESS: Jimi Soto is a 59 year old male, with a PMH significant for and per last office visit with Tanisha REED on 07/06/24: ASSESSMENT/PLAN: 1. Spinal stenosis of lumbar region, unspecified whether neurogenic claudication present - ICD9: 724.02, ICD10: M48.061 (primary diagnosis) 2. Pain in both lower extremities - ICD9: 729.5, ICD10: M79.604, M79.605 Patient originally follow-up for cognitive concerns and abnormal MRI of the brain. However, messaged in on due to concerns of pain in the legs and the back. Was seen in the emergency department [facility] last night, x-ray of the lumbar spine did show some diffuse degeneration patient with history of lumbar issues in the past. Notes history of sciatica as well with similar presentation. Describing onset 2 months ago, has been worsening in severity and occurrence. Notes daily symptoms that present randomly, no trigger that he can think of other than prolonged periods of standing but can also happen when sitting. No bowel or bladder incontinence or saddle anesthesia, no falls with this. No significant weakness. Patient does have some mild sensory changes on exam decreased temperature and vibration of the lower extremities. Decreased Achilles reflexes as well. At this time, due to history of lumbar disease and patient's symptom presentation concern for possible lumbar etiology. However, due to other sensory changes to discuss an EMG and patient is amenable. Due to his history of lumbar stenosis with multiple surgeries in the past we will order MRI of the lumbar spine. Discussed referral to physical therapy but patient would like to think about that. Notes that since has been on the gabapentin since last night his symptoms had completely resolved and like to continue this therapy. Refills for gabapentin were sent for the 300 mg at bedtime. Discussed red flag signs symptoms that would warrant going to the emergency department, patient agrees and understands. Patient to follow-up as planned with Dr. Joya in a month. Per my last visit with patient on 04/30/24: 1. Cerebral hemorrhage (HCC) - ICD9: 431, ICD10: I61.9 (primary diagnosis) 2. Abnormal finding on MRI of brain - ICD9: 793.0, ICD10: R90.89 3. Cognitive decline - ICD9: 294.9, ICD10: R41.89 4. Cerebral amyloid angiopathy (CODE) - ICD9: 277.39, 437.9, ICD10: I68.0 5. Balance problems - ICD9: 781.99, ICD10: R26.89 Patient with abnormal finding of multiple cerebral micro hemorrhages involving all lobes as well as cerebellum. MRI brain finding in the setting of constellation of subjective neuro symptoms as above. Patient also with history of bipolar disorder and use of neuroleptics that could provoke cognitive symptoms (I.e. pseudo dementia) as well as physical impairments (I.e. parkinsonism). Neuro exam unremarkable except for those cognitive deficits noted on MOCA above (mild) as well as masked facies, and changes in gait as per neuro exam above. Primary concern at this time is for Amyloid angiopathy which would explain micro hemorrhages; Amyloid is also associated with other disorders including Alzheimer's disease and Parkinson's. Discussed dx above in detail with patient and his sister including etiology, physiology, med conditions associated. Explained that there is no definitive diagnosis would be autopsy and that dx today is presumptive based on MRI brain and clinical symptoms. Also explained that there is no cure to this condition and treatment would be supportive. Did explain need for control of stroke/hemorrhage risk factors including proper mgmt of disorders such as HTN, DM, HLD, and avoiding other risks such as cigarettes, ETOH... Goal BP <140/90. Goal glucose <140. Advised that patient should avoid, if possible, medications such as anticoagulants as these could increase the risk of bleeding. I will get second opinion from Dr. Villavicencio at [facility]. However, if Dr. Villavicencio agrees, will continue to monitor and control risk factors here at [facility] with patient's PCP. Will consider starting dementia medication such as Namenda if symptoms were to worsen and if all other care providers agree. If patient develops more obvious symptoms of PD, then will need to consider lowering dosing of those meds that lower dopamine levels (used for mood disorders) or adding a medication such as Sinemet but will need to be careful in doing so as either could result in worsening o (more content not included)... Normal [facility] carBAMazepine SerPl-mCncon 0 11-05-2024 carBAMazepine [Mass/Vol] 9.4 ug/mL Normal 4.0-12.0 [facility] Comment on above: Order Comment: Speci shemar Type: BLOOD SPECIMENOrdering Facility: [facility] Address: [address] [place] [address] Result Comment: Refe rence ranges and high/low indicator flags are provided as general guidelines only. The treating physician must determine appropriate target levels/dosing based on the specific clinical situation. Performed By: #### 3 432-2 ####[facility] LABCLIA [id number] [address] [place] carBAMazepine free SerPl-mCn con 11-05-2024 carBAMazepine free [Mass/Vol] 2.1 ug/mL Normal 0.8-2.4 [facility] Comment on above: Order Comment: Speci shemar Type: BLOOD SPECIMENOrdering Facility: [facility] Address: [address] [place] [address] Result Comment: Refe rence ranges and high/low indicator flags are provided as general guidelines only. The treating physician must determine appropriate target levels/dosing based on the specific clinical situation. This test was developed, and its performance characteristics determined by the [facility] Department of Pathology and Laboratory Medicine. It has not been cleared or approved by the FDA. The [facility] Department of Pathology and Laboratory Medicine is regulated under CLIA as qualified to perform high-complexity testing. This test is used for clinical purposes. It should not be regarded as investigational or for research. Performed By: #### 3 433-0 ####[facility] LABIA [id number] [place] [address] [place] lamoTRIgine SerPl-mCncon lamoTRIgine [Mass/Vol] 2.5 ug/mL Normal 1.0-13.0 [facility] Comment on above: Order Comment: Speci men Type: BLOOD SPECIMENOrdering Facility: [facility] Address: [address] [place] [address] Result Comment: This test was developed, and its performance characteristics determined by the [facility] Department of Pathology and Laboratory Medicine. It has not been cleared or approved by the FDA. The [facility] Department of Pathology and Laboratory Medicine is regulated under CLIA as qualified to perform high-complexity testing. This test is used for clinical purposes. It should not be regarded as investigational or for research. Performed By: #### 6 948-4 ####[facility] LABCLIA [id number] [place] [id number] [place] CNOVon 11-01-2024 CNOV Office Visit (PODIWS ) JIMI SOTO ([id number]) 1965 M Date Time Provider Department 11/01/24 9:00 AM TESSIE DEAN PODIWS During your visit today, we recorded the following information about you: Alissa Holt, ROLF 11/01/2024 11:07 PM Signed Patient presents with: Left Foot - New, Pain Right Foot - New, Pain Patient presents for left foot pain that began a few months ago. States that he has a history of neuropathy primarily to legs (chart shows spinal stenosis of lumbar with neurogenic claudication) and sometimes has pain to bilateral feet. Pain sometimes to heels, and bottom of the foot. Denies any pain today. XRay of left foot done 09/28/24 Nataliya Deanew 11/01/2024 9:20 AM Signed - Continue taking gabapentin as prescribed for your foot pain. - Apply the topical antibiotic ointment to the scrape on your big toe until it heals; you may cover it with a band?aid if you prefer. - Use lotion on your feet daily to keep the skin moisturized. - Keep wearing your current supportive shoes. - Complete the pulse volume recording (PVR) study to check circulation in your feet; the clinic will contact you to schedule this test. - Contact the office if your foot pain worsens or if you notice any new problems. Lelizzie Tessie 11/01/2024 11:07 PM Signed Consultation requested by Dr. Johns for an opinion regarding foot pain. My final recommendations will be communicated back to the requesting physician by way of shared Medical record or letter to requesting physician via US mail. Subjective Jimi Soto is a 59-year-old male with a history of neuropathy, presenting for evaluation of chronic foot pain. Foot Pain: - Chronic pain in the entire plantar surface of the foot, including the ball of the foot, x1 year. - Pain is worse when barefoot. - Denies heel pain. - Currently taking gabapentin, which provides some relief but pain persists. - Has a known heel spur on one foot. - Denies smoking. Musculoskeletal: (+) bilateral plantar foot pain worse when walking barefoot, (-) tenderness to focal palpation of plantar surface PAST MEDICAL HISTORY Diagnosis Date Allergy to environmental factors Dr. Fernandes Anemia Bipolar 1 disorder (HCC) Dr. Stahl Cerebral hemorrhage ([facility]) Dr. Joya, Dr. Villavicencio Chronic kidney disease (CKD), stage III (moderate) ([facility]) Dr. Arthur Cognitive decline DDD (degenerative disc disease), lumbar Essential hypertension Family history of prostate cancer in father GERD (gastroesophageal reflux disease) Hx of gallstones s/p cholecystectomy Hyperlipidemia Internal hemorrhoids Irritable bowel syndrome Kidney dysfunction LBBB (left bundle branch block) incomplete. Negative echo in 2018. Lumbar spinal stenosis 07/27/2024 OA (osteoarthritis) of knee Obesity (BMI 30.0-34.9) Vitamin D deficiency Current Outpatient Medications Medication Sig Dispense Refill Bisacodyl (DULCOLAX) 5 mg tab Take 5 mg by mouth three times a day as needed for constipation. lamoTRIgine (LAMICTAL) 150 mg tablet Take 300 mg by mouth daily at bedtime. OLANZapine (ZYPREXA) 7.5 mg tablet Take 7.5 mg by mouth daily at bedtime. cholecalciferol (VITAMIN D) 1,000 unit tab tablet Take 1,000 Units by mouth once daily. gabapentin (NEURONTIN) 300 mg capsule Take 1 capsule by mouth daily at bedtime for 90 days. 90 capsule 0 atorvastatin (LIPITOR) 80 mg tablet Take 1 tablet by mouth once daily. 90 tablet 1 fenofibrate nanocrystallized (TRICOR) 48 mg tablet Take 1 tablet by mouth once daily. 90 tablet 1 omeprazole (PRILOSEC) 20 mg capsule Take 1 capsule by mouth daily before breakfast. 1/2 hr before meal. 90 capsule 1 docusate sodium (COLACE) 100 mg capsule Take 100 mg by mouth twice daily. clonazePAM (KLONOPIN) 1 mg tablet Take 1 mg by mouth at bedtime as needed. zolpidem (AMBIEN) 10 mg tab Take by mouth at bedtime as needed. venlafaxine XR (EFFEXOR XR) 150 mg tr24 Take by mouth once daily. DULoxetine (CYMBALTA) 60 mg capsule Take 60 mg by mouth twice daily. FERROUS SULFATE (HIGH POTENCY IRON ORAL) Take 1 tablet by mouth once daily. 27 mg daily in the morning cyanocobalamin (VITAMIN B-12) 500 mcg tablet Take 2 tablets by mouth once daily. CARBATROL 300 MG 12 HR CAP Take 600 mg by mouth two times a day with meals. 0 cholecalciferol, Vitamin D3, (VITAMIN D3) 1,250 mcg (50,000 unit) cap capsule Take 1 capsule by mouth one time a week. 12 capsule 0 OLANZapine (ZYPREXA) 10 mg tablet Take 2 tablets by mouth daily at bedtime. No current facility-administered medications for this visit. Facility-Administered Medications Ordered in Other Visits Medication Dose Route Frequency Provider Last Rate Last Admin propofol injection (DIPRIVAN) INTRAVENOUS PRN Will Lockett APRN.REQUIREMENTS ENGINEER 50 mg at 08/22/22 1240 Family History Problem Relation Age of Onset Cancer Father prostate, skin cancer (more content not included)... Normal [facility] MR/BMS.BPon 09-30-2024 MR/BMS.BP [facility] [address], [address] [place] [address] OFFICE VISIT Date of Service: 09/28/24 MR#: [id number] Acct: [id number] Name: JIMI SOTO Rep #: [id number] : 1965 Provider: [facility] Shauna rivera Age/Sex: 59/M Location: [facility] [place].BP Status: Signed Intake Vital Signs 07/12/24 14:00 09/16/24 13:52 09/30/24 06:35 Height 6 ft 2 in 6 ft 2 in 6 ft 2 in BP 137/83 H 143/90 H Blood Pressure Location Lt brachial Lt brachial Position Sitting Sitting Respiration 16 Pulse 76 76 Pulse Source Monitor Monitor BP Intake Visit Reasons: est care Allergies bupropion (From Wellbutrin) Allergy (Verified 09/16/24 13:53) Other clarithromycin (From Biaxin) Allergy (Verified 09/16/24 13:53) Other divalproex sodium (From Depakote) Allergy (Verified 09/16/24 13:53) Other econazole (From Spectazole) Allergy (Verified 09/16/24 13:53) Other fluoxetine (From Prozac) Allergy (Verified 09/16/24 13:53) Other latex Adverse Reaction (Mild, Verified 09/16/24 13:53) Rash ibuprofen Adverse Reaction (Verified 09/16/24 13:53) Nausea/Vom/Diarrhea PFSH Medical History Seizure disorder Cognitive communication deficit Wears glasses Arthritis Low iron Restless legs Back pain Injury of head and neck Syncope Dietary restriction Oral hygiene poor History of hiatal hernia Bleeding hemorrhoid History of IBS Gastric reflux Non-smoker Shortness of breath on exertion Chronic cough Leg cramps History of pain when walking History of edema Decay, teeth High cholesterol HTN (hypertension) Bipolar 1 disorder Chronic kidney disease Surgical History S/P laparoscopic cholecystectomy ( 12/2021) History of bone marrow biopsy Hx of colonoscopy Hx of esophagogastroduodenoscopy History of excision of lesion S/P appendectomy Family History Father Cancer prostate cancer, skin cancer Hypertension Mother Diabetes Sister Kidney disease Seizures Social History Smoking Status: Never smoker alcohol intake: never substance use type: does not use HPI History of Present Illness History provided by: patient HPI: Jimi Soto is a 59 year-old male who participated in a diagnostic assessment to begin BH therapy. He recently began psychiatric services at [facility] through Dr. Daniel. He had been receiving psychiatric care for [address] Corbett in [place] and attended some counseling there as well. Jimi recently tried to establish counseling at [facility] but could not continue as his insurance was not accepted. Jimi reports being diagnosed with bipolar disorder in the early and that his bipolar disorder symptoms are fairly well managed. He was psychiatrically hospitalized in the past, which he identifies worsened symptoms. Jimi identifies a time where he became catatonic when prescribed Wellbutrin. He reports at least one psychiatric hospitalization. Jimi describes real highs or lows of which he was unaware when not taking his medication. He reports neuropathy in his legs, brain bleeds, and a history of seizures. Jimi has an older brother who by suicide and a younger brother who from an accidental gunshot. Jimi reports that his mood symptoms worsened after his younger brother's (shock to system). He reports significant health issues over the last year and utilizing his sister for support. Sleep - Currently goes right to bed and easily falls asleep. Used to be up in the middle of the night or cam maker. Is now going back to bed when he wakes up. Interests - Identifies some anhedonia. Able to enjoy his friends. Energy - Reports heavy fatigue and times of dragging all day. States that he is taking 3 medications that cause sedation. Guilt - Denies feelings of hopelessness and worthlessness. Reports some guilt about his divorce and his behaviors following the divorce as they impacted his parents. Concentration - Denies any concentration problems. Appetite - States appetite affected since having 15 teeth pulled. Lost a significant amount of weight. Never fully recovered his appetite. Psychomotor - Reports psychomotor slowing. Suicide - Denies past or present SI. Older brother by suicide. Memory - Reports excellent long-term memory. Has struggled some with short-term memory since recent neurological problems. Anxiety - Identifies a previous diagnosis of anxiety and a history of panic attacks. Obsessions - Denies Compulsions - Denies Cristofer - Describes history of cristofer where he did things he normally would not do and experienced ongoing sleeplessness. PTSD - Reports finding younger brother af (more content not included)... [facility] ) JIMI SOTO ([id number]) 1965 M Date Time Provider Department 09/28/24 9:20 AM ROSE MARIE JOHNS During your visit today, we recorded the following information about you: Pulse Respiration Blood pressure Weight 73/minute 18/minute 124/78 108.3 kg Rose Marie Johns APRN.CNP 09/28/2024 9:42 AM Signed 09/28/2024 Patient presents with: Foreign Body: To left heel, noticed last night. SUBJECTIVE: This is a 59 year old that is here today for Above Complaints.. Last night had some pain to left heel and thinks maybe he has something under the skin. Denies fevers, chills, redness, excessive warmth, open skin area or drainage from area. Does not remember any trauma to area. Walks inside barefoot. PAST MEDICAL HISTORY Diagnosis Date Allergy to environmental factors Dr. Fernandes Anemia Bipolar 1 disorder (HCC) Dr. Stahl Cerebral hemorrhage ([facility]) Dr. Joya, Dr. Villavicencio Chronic kidney disease (CKD), stage III (moderate) ([facility]) Dr. Arthur Cognitive decline DDD (degenerative disc disease), lumbar Essential hypertension Family history of prostate cancer in father GERD (gastroesophageal reflux disease) Hx of gallstones s/p cholecystectomy Hyperlipidemia Internal hemorrhoids Irritable bowel syndrome Kidney dysfunction LBBB (left bundle branch block) incomplete. Negative echo in 2018. Lumbar spinal stenosis 07/27/2024 OA (osteoarthritis) of knee Obesity (BMI 30.0-34.9) Vitamin D deficiency ALLERGIES Biaxin [Clarithromycin], Depakote [Divalproex Sodium], Ibuprofen, Latex, Prozac [Fluoxetine Hcl], Spectazole [Econazole Nitrate], and Wellbutrin [Bupropion Hcl] MEDICATIONS Current Outpatient Medications Medication Sig atorvastatin (LIPITOR) 80 mg tablet Take 1 tablet by mouth once daily. fenofibrate nanocrystallized (TRICOR) 48 mg tablet Take 1 tablet by mouth once daily. omeprazole (PRILOSEC) 20 mg capsule Take 1 capsule by mouth daily before breakfast. 1/2 hr before meal. gabapentin (NEURONTIN) 300 mg capsule Take 1 capsule by mouth daily at bedtime for 90 days. cholecalciferol, Vitamin D3, (VITAMIN D3) 1,250 mcg (50,000 unit) cap capsule Take 1 capsule by mouth one time a week. docusate sodium (COLACE) 100 mg capsule Take 100 mg by mouth twice daily. OLANZapine (ZYPREXA) 10 mg tablet Take 2 tablets by mouth daily at bedtime. lamoTRIgine (LAMICTAL) 200 mg tablet Take 300 mg by mouth once daily. clonazePAM (KLONOPIN) 1 mg tablet Take 1 mg by mouth at bedtime as needed. zolpidem (AMBIEN) 10 mg tab Take by mouth at bedtime as needed. venlafaxine XR (EFFEXOR XR) 150 mg tr24 Take by mouth once daily. DULoxetine (CYMBALTA) 60 mg capsule Take 60 mg by mouth twice daily. FERROUS SULFATE (HIGH POTENCY IRON ORAL) Take 1 tablet by mouth once daily. cyanocobalamin (VITAMIN B-12) 500 mcg tablet Take 2 tablets by mouth once daily. CARBATROL 300 MG 12 HR CAP Take two capsules two(2) times daily. No current facility-administered medications for this visit. Facility-Administered Medications Ordered in Other Visits Medication Dose Route Frequency propofol injection (DIPRIVAN) INTRAVENOUS PRN Medications and allergies reviewed by this provider. SOCIAL HISTORY Social History Tobacco Use Smoking status: Never Smokeless tobacco: Never Substance Use Topics Alcohol use: No Drug use: No REVIEW OF SYSTEMS All other reviewed and negative other than HPI. OBJECTIVE: BP 124/78 Pulse 73 Resp 18 Wt 108.3 kg (238 lb 12.8 oz) SpO2 98% BMI 33.31 kg/m? . Vital signs reviewed by this provider. APPEARANCE Well appearing, alert, in no acute distress, well-hydrated, well nourished. LEFT FOOT: circular small divot area with dry skin in center plantar surface. No surrounding erythema, swelling, or drainage from area. Mild TTP Depression Screening Never done Anxiety Screening Never done BP Controlled (<130/80) due on 04/02/2024 Colorectal Cancer Screening due on 06/15/2024 Prostate Cancer Screening Discussion due on 07/05/2024 Hemoglobin/Hematocrit due on 03/03/2025 Serum Creatinine due on 05/19/2025 Annual PCP Team Chronic Disease Visit due on 07/27/2025 Diabetes Screening due on 05/19/2027 DTaP,Tdap,Td Vaccine(2 - Td or Tdap) due on 01/18/2028 Lipid Screening due on 03/03/2029 RSV Vaccine(1 - 1-dose 75+ series) due on 2038 Influenza Vaccine Completed Hepatitis C Screening Completed HIV Screening Completed Shingrix Vaccine Completed Covid-19 Vaccine Completed Pneumococcal Vaccine: 50+ Completed ASSESSMENT/PLAN: 1. Foot pain, left - ICD9: 729.5, ICD10: M79.672 - possible foreign body however I cannot visualize anything - no red flag symptoms or exam findings - red flag symptoms discussed, verbalizes understanding - recommend soaking in warm water and may apply neosporin cream to area Advised not to dig into skin are but may re (more content not included)... Normal [facility] XR FOOT 3V AP/LAT/OBL LTon 0 - XR FOOT 3V AP/LAT/OBL LT * * *Final Report* * * DATE OF EXAM: Sep 28 2024 9:55AM [id number] - XR FOOT 3V AP/LAT/OBL LT / PROCEDURE REASON: Foot pain, left * * * * Physician Interpretation * * * * TITLE: XR FOOT 3V AP/LAT/OBL LT CLINICAL INDICATION: Pain TECHNIQUE: 3 view radiographic study of the left foot COMPARISON: None FINDINGS: No acute fracture or dislocation identified. Dorsal calcaneal enthesopathy. Joint spaces preserved. No radiopaque foreign body. IMPRESSION: No radiopaque foreign body. No radiographic evidence of acute osseous injury Bundle Clerk: PETER Transcribe Date/Time: Sep 28 2024 9:58A Dictated by : NELIDA POLLARD MD This examination was interpreted and the report reviewed and electronically signed by: NELIDA POLLARD MD on Sep 28 2024 10:04AM EST [id number] Normal [facility] XR Foot - left AP and Latera l and obliqueon 09-28-2024 IMPRESSION: No radiopaque foreign body. No radiographic evidence of acute osseous injury Bundle Clerk: [facility] Transcribe Date/Time: Sep 28 2024 9:58A Dictated by : NELIDA POLLARD MD This examination was interpreted and the report reviewed and electronically signed by: NELIDA POLLARD MD on Sep 28 2024 10:04AM EST DIVISION OF RADIOLOGY * * *Final Report* * * DATE OF EXAM: Sep 28 2024 9:55AM [id number] - XR FOOT 3V AP/LAT/OBL LT / PROCEDURE REASON: Foot pain, left * * * * Physician Interpretation * * * * TITLE: XR FOOT 3V AP/LAT/OBL LT CLINICAL INDICATION: Pain TECHNIQUE: 3 view radiographic study of the left foot COMPARISON: None FINDINGS: No acute fracture or dislocation identified. Dorsal calcaneal enthesopathy. Joint spaces preserved. No radiopaque foreign body. DIVISION OF RADIOLOGY Provider, [facility] - 09/28/2024 * * *Final Report* * * DATE OF EXAM: Sep 28 2024 9:55AM WOX [id number] - XR FOOT 3V AP/LAT/OBL LT / PROCEDURE REASON: Foot pain, left * * * * Physician Interpretation * * * * TITLE: XR FOOT 3V AP/LAT/OBL LT CLINICAL INDICATION: Pain TECHNIQUE: 3 view radiographic study of the left foot COMPARISON: None FINDINGS: No acute fracture or dislocation identified. Dorsal calcaneal enthesopathy. Joint spaces preserved. No radiopaque foreign body. IMPRESSION IMPRESSION: No radiopaque foreign body. No radiographic evidence of acute osseous injury Bundle Clerk: [facility] Transcribe Date/Time: Sep 28 2024 9:58A Dictated by : NELIDA POLLARD MD This examination was interpreted and the report reviewed and electronically signed by: NELIDA POLLARD MD on Sep 28 2024 10:04AM EST [facility] Radiology Study observation (narrative) [facility] XR Foot - left AP and Latera l and obliqueOrdered By: Ccf Provider on 09-28-2024 [facility] MR/BMS.BPon 09-16-2024 MR/BMS.BP [facility] [address] [place] [address], [address] [place] [address] OFFICE VISIT Date of Service: 09/16/24 MR#: [id number] Acct: [id number] Name: JIMI SOTO Rep #: [id number] : 1965 Provider: Dr. Martin Mehta se, DO Age/Sex: 59/M Location: [facility] [place].BP Status: Signed Intake Vital Signs 07/12/24 14:00 09/16/24 13:52 Height 6 ft 2 in 6 ft 2 in BP 137/83 H 143/90 H Blood Pressure Location Lt brachial Lt brachial Position Sitting Sitting Respiration 16 Pulse 76 76 Pulse Source Monitor Monitor BP Intake Visit Reasons: 6 wk FU Bookie Required: No Accompanied by: Sister Is patient in pain?: No Allergies bupropion (From Wellbutrin) Allergy (Verified 09/16/24 13:53) Other clarithromycin (From Biaxin) Allergy (Verified 09/16/24 13:53) Other divalproex sodium (From Depakote) Allergy (Verified 09/16/24 13:53) Other econazole (From Spectazole) Allergy (Verified 09/16/24 13:53) Other fluoxetine (From Prozac) Allergy (Verified 09/16/24 13:53) Other latex Adverse Reaction (Mild, Verified 09/16/24 13:53) Rash ibuprofen Adverse Reaction (Verified 09/16/24 13:53) Nausea/Vom/Diarrhea Medications ???Medication ???Instructions ???Recorded ???Confirmed ???Type fenofibrate nanocrystallized 48 mg 48 mg PO DAILY 05/08/16 09/16/24 History tablet omeprazole 20 mg capsule,delayed 20 mg PO DAILY 05/08/16 09/16/24 H istory release atorvastatin 80 mg tablet 80 mg PO QHS 12/28/21 09/16/24 His tory docusate sodium 100 mg capsule 200 mg PO BID 12/28/21 09/16/24 Hi story ferrous sulfate 27 mg iron tablet 27 mg PO DAILY 12/28/21 09/16/24 History gabapentin 300 mg capsule 300 mg PO QHS #14 caps 07/05/24 Rx carbamazepine 300 mg 600 mg (2 x 300 mg) PO BID #60 cap s 07/12/24 09/16/24 Rx capsule,extended release [id number] duloxetine 60 mg capsule,delayed 60 mg PO BID #60 caps 07/12/24 Rx release lamotrigine 150 mg tablet 300 mg (2 x 150 mg) PO QHS 30 days 07/12/24 09/16/24 Rx #60 tabs olanzapine 7.5 mg tablet 7.5 mg PO QHS #30 tabs 07/12/24 Rx venlafaxine 150 mg 150 mg PO DAILY #30 caps 07/12/24 09/16/24 Rx capsule,extended release 24 hr bisacodyl 5 mg tablet 15 mg PO QHS PRN 09/16/24 09/16/24 History cholecalciferol (vitamin D3) 25 25 mcg PO QDAY 09/16/24 09/16/24 H istory mcg (1,000 unit) capsule clonazepam 1 mg tablet 1 mg PO QHS 30 days #30 tabs 09/1609/16/24 Rx cyanocobalamin (vitamin B-12) 1,000 mcg PO QDAY 09/16/24 5 History 1,000 mcg tablet zolpidem 5 mg tablet 5 mg PO QHS 30 days #30 tabs 09/1609/16/24 Rx PFSH Medical History Seizure disorder Cognitive communication deficit Wears glasses Arthritis Low iron Restless legs Back pain Injury of head and neck Syncope Dietary restriction Oral hygiene poor History of hiatal hernia Bleeding hemorrhoid History of IBS Gastric reflux Non-smoker Shortness of breath on exertion Chronic cough Leg cramps History of pain when walking History of edema Decay, teeth High cholesterol HTN (hypertension) Bipolar 1 disorder Chronic kidney disease Surgical History S/P laparoscopic cholecystectomy ( 12/2021) History of bone marrow biopsy Hx of colonoscopy Hx of esophagogastroduodenoscopy History of excision of lesion S/P appendectomy Family History Father Cancer prostate cancer, skin cancer Hypertension Mother Diabetes Sister Kidney disease Seizures Social History Smoking Status: Never smoker alcohol intake: never substance use type: does not use HPI History of Present Illness History provided by: patient HPI: Jimi Soto is a 59 year old male who presents today for follow up evaluation. Presents today with his sister, Antonia. Patient recently had an EEG in somewhat recent past. States that results came out normal. Was diagnosed with bilateral neuropathy in his legs. Had accidentally been taking too much B12 so there is some concern that this may have contributed. Has been doing somewhat better since being on gabapentin and reducing B12 supplementation. Recently saw a stroke specialist in the recent past. Plans to have follow up MRI in the fall. From a mood perspective, has been having some increase in hearing things. Describes possibly hearing someone outside his apartment or beeping the horn outside. It is somewhat stressful. Was happening largely at night. Did voice some mild paranoia regarding someone in the past trying to enter his apartment. Does describe some fairly significant fatigue. Feels like he can't stay awake if he was (more content not included)... Normal [facility] CNTHERAPYon 09-09-2024 CNTHERAPY OT/PT/Speech Visit ( PTWS) JIMI SOTO ([id number]) 1965 M Date Time Provider Department 09/09/24 11:00 AM LOU HOOD PTMAUREEN Date Time Provider Department Center 09/09/2024 11:00 AM [id number] HOOD PTMAUREEN [facility] Reason for Visit: PT Discharge [752] Primary Visit Diagnosis:Spinal stenosis of lumbar region without neurogenic claudication [M48.061] Other Visit Diagnosis:Pain in both lower extremities [M79.604, M79.605] Allergies As of Date: 09/09/2024 Noted Allergy Reaction BIAXIN (CLARITHROMYCIN) 12/05/2005 5 - Intolerance DEPAKOTE (DIVALPROEX SODIUM) 12/05/2005 5 - Intolerance IBUPROFEN 12/05/2005 5 - Intolerance Comments: advil LATEX 06/14/2014 16 - Unknown PROZAC (FLUOXETINE HCL) 12/05/2005 5 - Intolerance SPECTAZOLE (ECONAZOLE NITRATE) 12/05/2005 5 - Intolerance WELLBUTRIN (BUPROPION HCL) 12/05/2005 5 - Intolerance Comments: CAUSES [employer] Date Reviewed: 08/03/2024 Reviewed by: Sherry Duffy MA - Fully Assessed Prescriptions as of 09/09/2024 - atorvastatin (LIPITOR) 80 mg tablet Take 1 tablet by mouth once daily. - fenofibrate nanocrystallized (TRICOR) 48 mg tablet Take 1 tablet by mouth once daily. - omeprazole (PRILOSEC) 20 mg capsule Take 1 capsule by mouth daily before breakfast. 1/2 hr before meal. - gabapentin (NEURONTIN) 300 mg capsule Take 1 capsule by mouth daily at bedtime for 90 days. - cholecalciferol, Vitamin D3, (VITAMIN D3) 1,250 mcg (50,000 unit) cap capsule Take 1 capsule by mouth one time a week. - docusate sodium (COLACE) 100 mg capsule Take 100 mg by mouth twice daily. - OLANZapine (ZYPREXA) 10 mg tablet Take 2 tablets by mouth daily at bedtime. - lamoTRIgine (LAMICTAL) 200 mg tablet Take 300 mg by mouth once daily. - clonazePAM (KLONOPIN) 1 mg tablet Take 1 mg by mouth at bedtime as needed. - zolpidem (AMBIEN) 10 mg tab Take by mouth at bedtime as needed. - venlafaxine XR (EFFEXOR XR) 150 mg tr24 Take by mouth once daily. - DULoxetine (CYMBALTA) 60 mg capsule Take 60 mg by mouth twice daily. - FERROUS SULFATE (HIGH POTENCY IRON ORAL) Take 1 tablet by mouth once daily. - cyanocobalamin (VITAMIN B-12) 500 mcg tablet Take 2 tablets by mouth once daily. - CARBATROL 300 MG 12 HR CAP Take two capsules two(2) times daily. Facility-Administered Medications as of 09/09/2024 - propofol injection (DIPRIVAN) Director Critical Care: Addendum Therapy (PT/OT/Speech/Resp) ID: [id number] 09/09/2024 11:10 AM Author: LOU HOOD Signed by LOU HOOD PT on 09/09/2024 at 11:10 AM * * * This document replaces document [id number] * * * Document text: Program_ID:[id number] Access Code: [email or web address] URL: [email or web address] Date: 09-09-2024 Prepared By: Lou Hood Program Notes Exercises - Seated Lumbar Flexion Stretch - 1 x daily - 7 x weekly - 4 sets - 10 reps - Seated Transversus Abdominis Bracing with PLB - 1 x daily - 7 x weekly - 4 sets - 10 reps - Seated Sciatic Tensioner - 1 x daily - 7 x weekly - 2 sets - 10 reps Normal [facility] THERAPY NTon 09-09-2024 THERAPY NT HNO ID: [id number] Author: LOU HOOD PT Service: ? Author Type: Physical Therapist Type: Therapy (PT/OT/Speech/Resp) Filed: 09/09/2024 11:10 Note Text: Program_ID:[id number] Access Code: [email or web address] URL: [email or web address] Date: 09-09-2024 Prepared By: Lou Hood Program Notes Exercises - Seated Lumbar Flexion Stretch - 1 x daily - 7 x weekly - 4 sets - 10 reps - Seated Transversus Abdominis Bracing with PLB - 1 x daily - 7 x weekly - 4 sets - 10 reps - Seated Sciatic Tensioner - 1 x daily - 7 x weekly - 2 sets - 10 reps Normal [facility] CNTHERAPYon 09-02-2024 CNTHERAPY OT/PT/Speech Visit ( PTWS) JIMI SOTO ([id number]) 1965 M Date Time Provider Department 09/02/24 11:00 AM LOU HOOD PTMAUREEN Date Time Provider Department Center 09/02/2024 11:00 AM [id number] HOOD PTMAUREEN [place] Reason for Visit: Physical Therapy [503] Primary Visit Diagnosis:Spinal stenosis of lumbar region without neurogenic claudication [M48.061] Other Visit Diagnosis:Pain in both lower extremities [M79.604, M79.605] Allergies As of Date: 09/02/2024 Noted Allergy Reaction BIAXIN (CLARITHROMYCIN) 12/05/2005 5 - Intolerance DEPAKOTE (DIVALPROEX SODIUM) 12/05/2005 5 - Intolerance IBUPROFEN 12/05/2005 5 - Intolerance Comments: advil LATEX 06/14/2014 16 - Unknown PROZAC (FLUOXETINE HCL) 12/05/2005 5 - Intolerance SPECTAZOLE (ECONAZOLE NITRATE) 12/05/2005 5 - Intolerance WELLBUTRIN (BUPROPION HCL) 12/05/2005 5 - Intolerance Comments: [employer]US[employer] Date Reviewed: 08/03/2024 Reviewed by: Sherry Duffy MA - Fully Assessed Prescriptions as of 09/02/2024 - atorvastatin (LIPITOR) 80 mg tablet Take 1 tablet by mouth once daily. - fenofibrate nanocrystallized (TRICOR) 48 mg tablet Take 1 tablet by mouth once daily. - omeprazole (PRILOSEC) 20 mg capsule Take 1 capsule by mouth daily before breakfast. 1/2 hr before meal. - gabapentin (NEURONTIN) 300 mg capsule Take 1 capsule by mouth daily at bedtime for 90 days. - cholecalciferol, Vitamin D3, (VITAMIN D3) 1,250 mcg (50,000 unit) cap capsule Take 1 capsule by mouth one time a week. - docusate sodium (COLACE) 100 mg capsule Take 100 mg by mouth twice daily. - OLANZapine (ZYPREXA) 10 mg tablet Take 2 tablets by mouth daily at bedtime. - lamoTRIgine (LAMICTAL) 200 mg tablet Take 300 mg by mouth once daily. - clonazePAM (KLONOPIN) 1 mg tablet Take 1 mg by mouth at bedtime as needed. - zolpidem (AMBIEN) 10 mg tab Take by mouth at bedtime as needed. - venlafaxine XR (EFFEXOR XR) 150 mg tr24 Take by mouth once daily. - DULoxetine (CYMBALTA) 60 mg capsule Take 60 mg by mouth twice daily. - FERROUS SULFATE (HIGH POTENCY IRON ORAL) Take 1 tablet by mouth once daily. - cyanocobalamin (VITAMIN B-12) 500 mcg tablet Take 2 tablets by mouth once daily. - CARBATROL 300 MG 12 HR CAP Take two capsules two(2) times daily. Facility-Administered Medications as of 09/02/2024 - propofol injection (DIPRIVAN) Normal [facility] CNTHERAPYon 08-19-2024 CNTHERAPY OT/PT/Speech Visit ( PTWS) JIMI SOTO ([id number]) 1965 M Date Time Provider Department 08/19/24 11:00 AM LOU HOOD PTMAUREEN Date Time Provider Department Center 08/19/2024 11:00 AM [id number] HOOD PTMAUREEN [place] Reason for Visit: Physical Therapy [503] Primary Visit Diagnosis:Spinal stenosis of lumbar region without neurogenic claudication [M48.061] Other Visit Diagnosis:Pain in both lower extremities [M79.604, M79.605] Allergies As of Date: 08/19/2024 Noted Allergy Reaction BIAXIN (CLARITHROMYCIN) 12/05/2005 5 - Intolerance DEPAKOTE (DIVALPROEX SODIUM) 12/05/2005 5 - Intolerance IBUPROFEN 12/05/2005 5 - Intolerance Comments: advil LATEX 06/14/2014 16 - Unknown PROZAC (FLUOXETINE HCL) 12/05/2005 5 - Intolerance SPECTAZOLE (ECONAZOLE NITRATE) 12/05/2005 5 - Intolerance WELLBUTRIN (BUPROPION HCL) 12/05/2005 5 - Intolerance Comments: [employer] Date Reviewed: 08/03/2024 Reviewed by: Sherry Duffy MA - Fully Assessed Prescriptions as of 08/19/2024 - atorvastatin (LIPITOR) 80 mg tablet Take 1 tablet by mouth once daily. - fenofibrate nanocrystallized (TRICOR) 48 mg tablet Take 1 tablet by mouth once daily. - omeprazole (PRILOSEC) 20 mg capsule Take 1 capsule by mouth daily before breakfast. 1/2 hr before meal. - gabapentin (NEURONTIN) 300 mg capsule Take 1 capsule by mouth daily at bedtime for 90 days. - cholecalciferol, Vitamin D3, (VITAMIN D3) 1,250 mcg (50,000 unit) cap capsule Take 1 capsule by mouth one time a week. - docusate sodium (COLACE) 100 mg capsule Take 100 mg by mouth twice daily. - OLANZapine (ZYPREXA) 10 mg tablet Take 2 tablets by mouth daily at bedtime. - lamoTRIgine (LAMICTAL) 200 mg tablet Take 300 mg by mouth once daily. - clonazePAM (KLONOPIN) 1 mg tablet Take 1 mg by mouth at bedtime as needed. - zolpidem (AMBIEN) 10 mg tab Take by mouth at bedtime as needed. - venlafaxine XR (EFFEXOR XR) 150 mg tr24 Take by mouth once daily. - DULoxetine (CYMBALTA) 60 mg capsule Take 60 mg by mouth twice daily. - FERROUS SULFATE (HIGH POTENCY IRON ORAL) Take 1 tablet by mouth once daily. - cyanocobalamin (VITAMIN B-12) 500 mcg tablet Take 2 tablets by mouth once daily. - CARBATROL 300 MG 12 HR CAP Take two capsules two(2) times daily. Facility-Administered Medications as of 08/19/2024 - propofol injection (DIPRIVAN) Normal [facility] CNTHERAPYon 08-12-2024 CNTHERAPY OT/PT/Speech Visit ( PTWS) JIMI SOTO ([id number]) 1965 M Date Time Provider Department 08/12/24 11:00 AM LOU HOOD PTMAUREEN Date Time Provider Department Center 08/12/2024 11:00 AM [id number] HOOD Reason for Visit: Physical Therapy [503] Primary Visit Diagnosis:Spinal stenosis of lumbar region without neurogenic claudication [M48.061] Other Visit Diagnosis:Pain in both lower extremities [M79.604, M79.605] Allergies As of Date: 08/12/2024 Noted Allergy Reaction BIAXIN (CLARITHROMYCIN) 12/05/2005 5 - Intolerance DEPAKOTE (DIVALPROEX SODIUM) 12/05/2005 5 - Intolerance IBUPROFEN 12/05/2005 5 - Intolerance Comments: advil LATEX 06/14/2014 16 - Unknown PROZAC (FLUOXETINE HCL) 12/05/2005 5 - Intolerance SPECTAZOLE (ECONAZOLE NITRATE) 12/05/2005 5 - Intolerance WELLBUTRIN (BUPROPION HCL) 12/05/2005 5 - Intolerance Comments: [employer] Date Reviewed: 08/03/2024 Reviewed by: Sherry Duffy MA - Fully Assessed Prescriptions as of 08/12/2024 - atorvastatin (LIPITOR) 80 mg tablet Take 1 tablet by mouth once daily. - fenofibrate nanocrystallized (TRICOR) 48 mg tablet Take 1 tablet by mouth once daily. - omeprazole (PRILOSEC) 20 mg capsule Take 1 capsule by mouth daily before breakfast. 1/2 hr before meal. - gabapentin (NEURONTIN) 300 mg capsule Take 1 capsule by mouth daily at bedtime for 90 days. - cholecalciferol, Vitamin D3, (VITAMIN D3) 1,250 mcg (50,000 unit) cap capsule Take 1 capsule by mouth one time a week. - docusate sodium (COLACE) 100 mg capsule Take 100 mg by mouth twice daily. - OLANZapine (ZYPREXA) 10 mg tablet Take 2 tablets by mouth daily at bedtime. - lamoTRIgine (LAMICTAL) 200 mg tablet Take 300 mg by mouth once daily. - clonazePAM (KLONOPIN) 1 mg tablet Take 1 mg by mouth at bedtime as needed. - zolpidem (AMBIEN) 10 mg tab Take by mouth at bedtime as needed. - venlafaxine XR (EFFEXOR XR) 150 mg tr24 Take by mouth once daily. - DULoxetine (CYMBALTA) 60 mg capsule Take 60 mg by mouth twice daily. - FERROUS SULFATE (HIGH POTENCY IRON ORAL) Take 1 tablet by mouth once daily. - cyanocobalamin (VITAMIN B-12) 500 mcg tablet Take 2 tablets by mouth once daily. - CARBATROL 300 MG 12 HR CAP Take two capsules two(2) times daily. Facility-Administered Medications as of 08/12/2024 - propofol injection (DIPRIVAN) Director Critical Care: Therapy (PT/OT/Speech/Resp) ID: [id number] 08/12/2024 11:14 AM Author: LOU HOOD Signed by LOU HOOD PT on 08/12/2024 at 11:14 AM Document text: Program_ID:[id number] Access Code: [email or web address] URL: [email or web address] Date: 08-12-2024 Prepared By: Lou Hood Program Notes Exercises - Seated Lumbar Flexion Stretch - 1 x daily - 7 x weekly - 4 sets - 10 reps - Seated Transversus Abdominis Bracing with PLB - 1 x daily - 7 x weekly - 4 sets - 10 reps - Seated Sciatic Tensioner - 1 x daily - 7 x weekly - 2 sets - 10 reps Normal [facility] THERAPY NTon 08-12-2024 THERAPY NT HNO ID: [id number] Author: LOU HOOD PT Service: ? Author Type: Physical Therapist Type: Therapy (PT/OT/Speech/Resp) Filed: 08/12/2024 11:14 Note Text: Program_ID:[id number] Access Code: [email or web address] URL: [email or web address] Date: 08-12-2024 Prepared By: Lou Hood Program Notes Exercises - Seated Lumbar Flexion Stretch - 1 x daily - 7 x weekly - 4 sets - 10 reps - Seated Transversus Abdominis Bracing with PLB - 1 x daily - 7 x weekly - 4 sets - 10 reps - Seated Sciatic Tensioner - 1 x daily - 7 x weekly - 2 sets - 10 reps Normal [facility] [id number] 08-04-2024 [id number] HNO ID: [id number] Author: LOU HOOD PT Service: ? Author Type: Physical Therapist Type: [id number] Filed: 08/04/2024 16:20 Note Text: [facility] Physical Therapy Plan of Care Certification Patient Name: Jimi Soto : 1965 [facility] #: [id number] Date: 08/04/2024 To: Dianelys Reynolds PA-C From Therapist: Lou Hood PT RE: Patient Certification/ Recertification Your review, approval and electronic signature are required in order to comply with Payor: MEDICARE / Plan: MEDICARE A AND B / Product Type: Medicare / regulations. The identified Physical Therapy PLAN OF CARE for the patient is as follows: M48.061 Spinal stenosis of lumbar region, unspecified whether neurogenic claudication present (primary encounter diagnosis) M79.604, M79.605 Pain in both lower extremities PLAN OF CARE: Assessment: Jimi Soto presents with diagnosis of spinal stenosis of lumbar region and pain in both LE's that interferes with standing, sitting . The patient presents with impairments in ADL's, gait, independence in exercise, joint mobility, overall function, patient reported outcome measures, posture, range of motion, strength, and symptom management. PROMIS? (Patient-Reported Outcomes Measurement Information System) scores were reviewed and identified as a rehabilitation concern. Prognosis for therapy is Fair due to: poor historian, clinical presentation, chronic nature of impairments . The patient will benefit from skilled therapy services to meet the goals established for this plan of care as noted below. Classification Pain Mechanism Classification: Nociceptive Goals for Episode of Care: established 08/04/24 Independent in home exercises. Patient will decrease pain to 1-2/10 at rest to allow patient to improve standing tolerance for ADLs. Restore pain-free lumbar ROM to minimal to moderate limitation extension to allow for prolonged standing and postural correction. Sit 1-2 hours without pain/symptoms to allow for seated activities. Patient will be able to tolerate walking for community distances without increased symptoms. 14 sit <> stand reps in 30 seconds to demonstrate improved functional strength to WNL for pt. Age group. Patient Goals: reduce LBP Time Frame for Goals and Treatment : 09/15/24 Planned Interventions, Frequency, and Duration: Current Frequency: 1x/week Duration: 6 weeks Total Number of Visits Planned: 6 Planned Treatment Interventions: Self-retirement management (46762), Gait Training (13050), Therapeutic activities (21058), Manual therapy (57170), Therapeutic exercise (67713), Neuromuscular re-education (30928) PLAN FOR NEXT VISIT: postural TA stabilization strengthening in seated positions transitioning to standing. Assess symptom response to repeated lumbar flexion for self management of LBP, numbness BLE may not change Patient demonstrates fair understanding of plan of care and treatment. The above goals and plan of care were discussed and agreed upon by patient/family. For further details regarding this patient refer to the Physical Therapy electronically documented visit dated 08/04/2024. Provider Attestation I have reviewed the treatment plan for Jimi Soto, [facility]# [id number] for the period of 08/04/24 -- 09/15/24, established on 08/04/2024. Signature certifies the need for therapy services. Normal [facility] CNTHERAPYon 08-04-2024 CNTHERAPY OT/PT/Speech Visit ( PTWS) JIMI SOTO ([id number]) 1965 M Date Time Provider Department 08/04/24 3:45 PM LOU HOOD Date Time Provider Department Center 08/04/2024 3:45 PM [id number] HOOD Reason for Visit: PT Aaron [747] Primary Visit Diagnosis:Spinal stenosis of lumbar region, unspecified whether neurogenic claudication present [M48.061] Other Visit Diagnosis:Pain in both lower extremities [M79.604, M79.605] Allergies As of Date: 08/04/2024 Noted Allergy Reaction BIAXIN (CLARITHROMYCIN) 12/05/2005 5 - Intolerance DEPAKOTE (DIVALPROEX SODIUM) 12/05/2005 5 - Intolerance IBUPROFEN 12/05/2005 5 - Intolerance Comments: advil LATEX 06/14/2014 16 - Unknown PROZAC (FLUOXETINE HCL) 12/05/2005 5 - Intolerance SPECTAZOLE (ECONAZOLE NITRATE) 12/05/2005 5 - Intolerance WELLBUTRIN (BUPROPION HCL) 12/05/2005 5 - Intolerance Comments: [employer]US[employer] Date Reviewed: 08/03/2024 Reviewed by: Sherry Duffy MA - Fully Assessed Prescriptions as of 08/04/2024 - atorvastatin (LIPITOR) 80 mg tablet Take 1 tablet by mouth once daily. - fenofibrate nanocrystallized (TRICOR) 48 mg tablet Take 1 tablet by mouth once daily. - omeprazole (PRILOSEC) 20 mg capsule Take 1 capsule by mouth daily before breakfast. 1/2 hr before meal. - gabapentin (NEURONTIN) 300 mg capsule Take 1 capsule by mouth daily at bedtime for 90 days. - cholecalciferol, Vitamin D3, (VITAMIN D3) 1,250 mcg (50,000 unit) cap capsule Take 1 capsule by mouth one time a week. - docusate sodium (COLACE) 100 mg capsule Take 100 mg by mouth twice daily. - OLANZapine (ZYPREXA) 10 mg tablet Take 2 tablets by mouth daily at bedtime. - lamoTRIgine (LAMICTAL) 200 mg tablet Take 300 mg by mouth once daily. - clonazePAM (KLONOPIN) 1 mg tablet Take 1 mg by mouth at bedtime as needed. - zolpidem (AMBIEN) 10 mg tab Take by mouth at bedtime as needed. - venlafaxine XR (EFFEXOR XR) 150 mg tr24 Take by mouth once daily. - DULoxetine (CYMBALTA) 60 mg capsule Take 60 mg by mouth twice daily. - FERROUS SULFATE (HIGH POTENCY IRON ORAL) Take 1 tablet by mouth once daily. - cyanocobalamin (VITAMIN B-12) 500 mcg tablet Take 2 tablets by mouth once daily. - CARBATROL 300 MG 12 HR CAP Take two capsules two(2) times daily. Facility-Administered Medications as of 08/04/2024 - propofol injection (DIPRIVAN) Director Critical Care: Addendum Therapy (PT/OT/Speech/Resp) ID: [id number] 08/04/2024 4:11 PM Author: LOU HOOD Signed by LUO HOOD PT on 08/04/2024 at 4:11 PM * * * This document replaces document [id number] * * * Document text: Program_ID:[id number] Access Code: [email or web address] URL: [email or web address] Date: 08-04-2024 Prepared By: Lou Hood Program Notes Exercises - Seated Lumbar Flexion Stretch - 1 x daily - 7 x weekly - 4 sets - 10 reps - Seated Transversus Abdominis Bracing with PLB - 1 x daily - 7 x weekly - 4 sets - 10 reps - Seated Sciatic Tensioner - 1 x daily - 7 x weekly - 2 sets - 10 reps Normal [facility] THERAPY NTon 08-04-2024 THERAPY NT HNO ID: [id number] Author: LOU HOOD PT Service: ? Author Type: Physical Therapist Type: Therapy (PT/OT/Speech/Resp) Filed: 08/04/2024 16:11 Note Text: Program_ID:[id number] Access Code: [email or web address] URL: [email or web address] Date: 08-04-2024 Prepared By: Lou Hood Program Notes Exercises - Seated Lumbar Flexion Stretch - 1 x daily - 7 x weekly - 4 sets - 10 reps - Seated Transversus Abdominis Bracing with PLB - 1 x daily - 7 x weekly - 4 sets - 10 reps - Seated Sciatic Tensioner - 1 x daily - 7 x weekly - 2 sets - 10 reps Normal [facility] CNOVon 08-03-2024 CNOV Office Visit (CVAKPO ) JIMI SOTO ([id number]) 1965 M Date Time Provider Department 08/03/24 1:00 PM ISMAEL VILLAVICENCIO During your visit today, we recorded the following information about you: Pulse Blood pressure Weight Height 80/minute 163/84 104.3 kg 1.803 m Ismael Villavicencio MD 08/03/2024 3:47 PM Signed [facility] Initial Visit Consultation is requested by: Kel Joya [address] [id number] PCP: Alpesh Hill [address] [place] [address] CEREBROVASCULAR HISTORY Jimi Soto is a 59 year old male who is being referred by Dr Joya for an evaluation of cerebral microbleeds. He is accompanied by his sister, Kelley, who helps with history. The patient consented to the use of [employer] software for draft documentation of the visit consistent with [facility]?s Notice of Privacy Practices. Reason for Visit: cerebral microbleeds - Jimi is a 59-year-old male with a history of cerebral amyloid angiopathy, CKD stage 3, hyperlipidemia, and bipolar disorder, presenting for evaluation of microbleeds. Date of Last Event: (N/A) History of Event: AI scribe based text: Questionable Cerebral Amyloid Angiopathy: - Referred by Dr. Joya for evaluation of microbleeds. - Initial symptoms included blurred vision, imbalance, and headaches. - Brain MRI revealed innumerable microhemorrhages throughout the brain. - Neurology consult requested by Jimi's sister, Kelley, who is present and providing additional history. - Decline in cognitive function noted over the past 1-2 years, with worsening symptoms in the last 1.5 years. - Memory issues include forgetting appointments and details from medical visits. - Short-term memory more affected than long-term memory. - Recent MoCA performed by Dr. Joya with score of 24/30 (points lost for delayed recall, serial 7, abstraction) - Family history of Alzheimer's disease. - Denies current use of technology; relies on sister for support and reminders. - Lives alone in [place]; sister lives [place] of [place] and provides support. - Denies current use of antihypertensive medications; previously treated for HTN. - Denies history of open heart surgery. Neuropathy: - Bilateral leg pain, numbness, and tingling. - Recent episodes of leg shaking and uncontrolled movements. - EMG last month diagnosed bilateral sensory polyneuropathy. - Recent MRI of the back showed mild degenerative changes and stenosis. - Pain described as severe, lasting from a few hours to all day, affecting ability to perform errands. - Pain radiates from hips down to legs, with recent increase in left-sided pain. - Denies current or prior diabetes mellitus. Bipolar Disorder: - Long-standing history, recently established with a new psychiatrist, Dr. Martin Daniel, in [place]. - Recent decrease in Zyprexa to [address] Daniel. - Previous psychiatrist attributed some symptoms to Zyprexa. - Reports unusual behaviors, including not showering and poor hygiene. - Recent depressive symptoms noted, attributed to physical and cognitive decline. - History of ECT treatment. - Family history of mental health issues, including a brother with a history of electroshock therapy. CKD Stage 3: - Managed by a lens block gauger, with next appointment scheduled for December 29. - Believes medication may have contributed to kidney dysfunction. Hyperlipidemia: - Long-standing history, previously managed with medication. - Recent discontinuation of antihypertensive medication due to low blood pressure readings. Family History: - Family history of diabetes mellitus, heart disease, and obesity. - Mother had diabetes mellitus, heart disease, and obesity. - Brother from an accidental gunshot wound, which triggered Jimi's mental health issues. Residual Deficits: Cognitive impairments Current PT/OT/ST: None Current Living Situation: Home alone Current use of a mobility aid for walking/getting around: None PAST MEDICAL HISTORY Diagnosis Date Allergy to environmental factors Dr. Fernandes Anemia Bipolar 1 disorder ([facility]) Dr. Stahl Cerebral hemorrhage ([facility]) Dr. Joya, Dr. Villavicencio Chronic kidney disease (CKD), stage III (moderate) ([facility]) Dr. Arthur Cognitive decline DDD (degenerative disc disease), lumbar Essential hypertension Family history of prostate cancer in father GERD (gastroesophageal reflux disease) Hx of gallstones s/p cholecystectomy Hyperlipidemia Internal hemorrhoids Irritable bowel syndrome Kidney dysfunction LBBB (left bundle branch block) incomplete. Negative echo in 2018. Lumbar spinal stenosis 07/27/2024 OA (osteoarthritis) of knee Obesity (BMI 30.0-34.9) Vitamin D deficiency PAST SURGICAL HISTORY Procedure Laterality Date APPENDECTOMY remotely (more content not included)... Normal [facility] CNOVon 07-27-2024 CNOV Office Visit (FAMPWS ) VINICIUSJIMI CASILLAS ([id number]) 1965 M Date Time Provider Department 07/27/24 10:00 AM [facility] FAMPWS During your visit today, we recorded the following information about you: Pulse Respiration Blood pressure Weight 72/minute 16/minute 118/76 110 kg Alpesh Hill MD 07/27/2024 11:05 AM Signed Chief Complaint Patient presents with: ED Follow-up HPI Jimi Soto is a 59 year old male who presents here today for ER Follow Up.. Patient evaluated at [facility] ED on 07/05/2024 for complaint of intermittent bilateral lower leg pain x 2 months. Obtained xray of lumbar spine which showed degenerative changes. No signs of cauda equina on history or exam. Started on prednisone and given rx for gabapentin for home with recommendation to f/u with our office. Since discharge, he had f/u with neurology on 07/06 and discussed symptoms with their office. Obtained MRI of the lumbar spine which showed: Mild canal stenosis at L3-4. Bony foraminal stenosis at L3-4 through L5-S1 as outlined above. Obtained EMG as well which showed sensory polyneuropathy. Refilled patient's gabapentin at appointment and referred to PT based on EMG and MRI reports. Today, he states he is still getting pain in his lower legs on almost daily basis. Pain up to 10/10 going from hips to his ankles. Episodes typically last a few hours to a whole day. Has been taking gabapentin as prescribed without much improvement thus far, but was told it could take up to 6 weeks to take effect. Not taking anything OTC for pain. Has not tried ice/heat or any home exercises. Denies loss of bowel/bladder control, saddle anesthesia, LE weakness, fever/chills, fall/injury to his back since ER evaluation. He states that he has scheduled appointment with PT for later this month. No history of spinal surgery. Requesting refill on his cholesterol medication. Past medical history, appointments, medications, allergies reviewed. Previous Medical History PAST MEDICAL HISTORY Diagnosis Date Allergy to environmental factors Dr. Fernandes Anemia Bipolar 1 disorder (HCC) Dr. Stahl Cerebral hemorrhage ([facility]) Dr. Joya, Dr. Villavicencio Chronic kidney disease (CKD), stage III (moderate) ([facility]) Dr. Arthur Cognitive decline DDD (degenerative disc disease), lumbar Essential hypertension Family history of prostate cancer in father GERD (gastroesophageal reflux disease) Hx of gallstones s/p cholecystectomy Hyperlipidemia Internal hemorrhoids Irritable bowel syndrome Kidney dysfunction LBBB (left bundle branch block) incomplete. Negative echo in 2018. Lumbar spinal stenosis 07/27/2024 OA (osteoarthritis) of knee Obesity (BMI 30.0-34.9) Vitamin D deficiency Previous Surgical History PAST SURGICAL HISTORY Procedure Laterality Date APPENDECTOMY remotely COLONOSCOPY FLX DX W/COLLJ SPEC WHEN PFRMD 06/15/2014 Colonoscopy COLONOSCOPY SCREENING Bilateral 08/22/2022 ESOPHAGOGASTRODUODENOSCOPY TRANSORAL DIAGNOSTIC 06/15/2014 EGD INCISION AND DRAINAGE ABSCESS SIMPLE/SINGLE both sides of face. KNEE SURGERY HX arthroscopic surgery for cartilage removal. unsure which knee L'SCOPE CHOLECYSTECTOMY 12/2021 Family History FAMILY HISTORY Problem Relation Age of Onset Cancer Father prostate, skin cancer Hypertension Father Coronary Artery Disease Mother stroke and mi Diabetes Mother Heart Sister ME age 50s Mental illness Brother suicide Mental illness Brother Heart Maternal Grandmother Diabetes Maternal Grandmother Breast Cancer Paternal Grandmother Mental illness Brother hunting accident Patient Allergies ALLERGIES Allergen Reactions Biaxin [Clarithromy* Intolerance Depakote [Divalproe* Intolerance Ibuprofen Intolerance advil Latex Unknown Prozac [Fluoxetine * Intolerance Spectazole [Econazo* Intolerance Wellbutrin [Bupropi* Intolerance CAUSES [place] Current Medications Current Outpatient Medications on File Prior to Visit Medication Sig omeprazole (PRILOSEC) 20 mg capsule Take 1 capsule by mouth daily before breakfast. 1/2 hr before meal. gabapentin (NEURONTIN) 300 mg capsule Take 1 capsule by mouth daily at bedtime for 90 days. cholecalciferol, Vitamin D3, (VITAMIN D3) 1,250 mcg (50,000 unit) cap capsule Take 1 capsule by mouth one time a week. fenofibrate nanocrystallized (TRICOR) 48 mg tablet Take 1 tablet by mouth once daily. atorvastatin (LIPITOR) 80 mg tablet Take 1 tablet by mouth once daily. lamoTRIgine (LAMICTAL) 200 mg tablet Take 300 mg by mouth once daily. clonazePAM (KLONOPIN) 1 mg tablet Take 1 mg by mouth at bedtime as needed. zolpidem (AMBIEN) 10 mg tab Take by mouth at bedtime as needed. venlafaxine XR (EFFEXOR XR) 150 mg tr24 Take by mouth once daily. DULoxetine (CYMBALTA) 60 mg capsule Take 60 mg by mouth twice daily. FERROUS SULFAT (more content not included)... Normal [facility] 25(OH)D3 LindaCharlottebernadette 2024 25-hydroxyvitamin D3 [Mass/Vol] 42.0 ng/mL Normal 31.0-80.0 [facility] Comment on above: Order Comment: Speci men Type: BLOOD SPECIMENOrdering Facility: [facility] Address: [address] [place] [address] Result Comment: Clas sification of 25 OH Vitamin D status: Deficiency/Insufficiency: < or = 30 ng/ml. Sufficiency/Optimal Levels: 31-80 ng/mL Toxicity: > 100 ng/mL. Test performed by chemiluminescent immunoassay. Performed By: #### 1 989-3 ####[facility] LABIA [id number] [place] [address] [place] MARILYN BY IFA WITH REFLEXon Nuclear Ab Ql (S) Negative Normal Negative [facility] Comment on above: Order Comment: Winter shemar Type: BLOOD SPECIMENOrdering Facility: [facility] Address: [address] [place] [address] Result Comment: Anti -nuclear antibody test is used as an aid in diagnosis of systemic autoimmune diseases. Where positive and clinically warranted, follow-up using disease-specific testing is recommended. Low positive titers are not uncommon with advanced age, certain chronic infections, and malignancies among others. Test methodology: Indirect fluorescence immunoassay (IFA) using HEp-2 cells. Performed By: #### A NAIFR ####[facility] LABCLIA [id number] [place] [address] [place] [facility] ([id number]) 1965 M Date Time Provider Department 07/21/24 DIANELYS REYNOLDS During your visit today, we recorded the following information about you: Litzy May RN 07/21/2024 3:36 PM Signed Patient asking for ordering provider to advise on his recent Spine MRI results, when able. ROLF Fraire Jessica, LPN 07/22/2024 9:25 AM Signed MRI of the lumbar spine showing no significant central stenosis but does show narrowing where the nerves exit the spine, specifically from L4-S1. This can cause symptoms radiating down the legs, however, not necessarily appreciated on EMG. We can try physical therapy to help relieve some of this pressure on the nerves and see if it helps with his symptoms. If interested, will send in referral. YUDELKA Couch Jessica, LPN 07/22/2024 10:15 AM Signed TC to pt who would like to try PT. Please see consult placed. DALIA Blanco Jessica, LPN 07/27/2024 7:49 AM Signed PT scheduled. Lou Katz LPN Allergies As of Date: 07/21/2024 Noted Allergy Reaction BIAXIN (CLARITHROMYCIN) 12/05/2005 5 - Intolerance DEPAKOTE (DIVALPROEX SODIUM) 12/05/2005 5 - Intolerance IBUPROFEN 12/05/2005 5 - Intolerance Comments: advil LATEX 06/14/2014 16 - Unknown PROZAC (FLUOXETINE HCL) 12/05/2005 5 - Intolerance SPECTAZOLE (ECONAZOLE NITRATE) 12/05/2005 5 - Intolerance WELLBUTRIN (BUPROPION HCL) 12/05/2005 5 - Intolerance Comments: [place]US[place] Date Reviewed: 07/06/2024 Reviewed by: Dianelys Reynolds PA-C - Fully Assessed Reason for Visit: Results [95] Prescriptions as of 07/27/2024 - omeprazole (PRILOSEC) 20 mg capsule Take 1 capsule by mouth daily before breakfast. 1/2 hr before meal. - predniSONE (DELTASONE) 20 mg tablet Take 60 mg by mouth once daily. - gabapentin (NEURONTIN) 300 mg capsule Take 1 capsule by mouth daily at bedtime for 90 days. - cholecalciferol, Vitamin D3, (VITAMIN D3) 1,250 mcg (50,000 unit) cap capsule Take 1 capsule by mouth one time a week. - fenofibrate nanocrystallized (TRICOR) 48 mg tablet Take 1 tablet by mouth once daily. - atorvastatin (LIPITOR) 80 mg tablet Take 1 tablet by mouth once daily. - docusate sodium (COLACE) 100 mg capsule Take 100 mg by mouth twice daily. - OLANZapine (ZYPREXA) 10 mg tablet Take 2 tablets by mouth daily at bedtime. - lamoTRIgine (LAMICTAL) 200 mg tablet Take 300 mg by mouth once daily. - clonazePAM (KLONOPIN) 1 mg tablet Take 1 mg by mouth at bedtime as needed. - zolpidem (AMBIEN) 10 mg tab Take by mouth at bedtime as needed. - venlafaxine XR (EFFEXOR XR) 150 mg tr24 Take by mouth once daily. - DULoxetine (CYMBALTA) 60 mg capsule Take 60 mg by mouth twice daily. - FERROUS SULFATE (HIGH POTENCY IRON ORAL) Take 1 tablet by mouth once daily. - cyanocobalamin (VITAMIN B-12) 500 mcg tablet Take 2 tablets by mouth once daily. - CARBATROL 300 MG 12 HR CAP Take two capsules two(2) times daily. Facility-Administered Medications as of 07/27/2024 - propofol injection (DIPRIVAN) Problem List As Of Date 07/21/2024 Noted Resolved EPIDERMAL CYST--INFLAMED///SEBACEOUS CYST [L72.*07/29/2007 ACNE: Grade III to IV Inflammatory Nodulocystic*07/29/2007 SCAR AND FIBROSIS OF SKIN [L90.5] 07/29/2007 OPEN WOUND SITE NOS [T14.8XXA] 12/22/2007 Contact Dermatitis and Other Eczema, due to Uns*10/14/2009 Cystic Acne Scars [L90.5] 12/12/2010 Actinic Keratoses (Premalignant AK's) [L57.0] 02/24/2013 Neoplasm of uncertain behavior of skin [D48.5] 02/24/2013 Inflamed seborrheic keratosis [L82.0] 02/24/2013 Inverted follicular keratosis [L11.0] 02/24/2013 Melanocytic nevi of trunk [D22.5] 02/24/2013 Other seborrheic keratosis [L82.1] 02/24/2013 Actinic skin damage [L57.8] 02/24/2013 Cutaneous skin tags [L91.8] 02/24/2013 Sebaceous hyperplasia of face [L73.8] 04/09/2013 Milial cyst [L72.0] 04/09/2013 Postinflammatory skin changes [R23.8] 04/09/2013 Bipolar disorder (HCC) [F31.9] 06/09/2014 Anemia [D64.9] 06/09/2014 Hyperlipidemia [E78.5] Obesity, Class I, BMI 30-34.9 [E66.811] 07/09/2018 Gastroesophageal reflux disease [K21.9] 07/09/2018 CKD (chronic kidney disease) stage 3, GFR 30-59*07/09/2018 Chronic kidney disease (CKD), stage III (modera* Allergy to environmental factors [Z91.09] Essential hypertension [I10] 04/16/2021 OA (osteoarthritis) of knee [M17.9] 10/15/2022 Cognitive decline [R41.89] 05/18/2024 Balance problems [R26.89] 05/18/2024 Cerebral hemorrhage (HCC) [I61.9] 05/18/2024 Hereditary cerebral amyloid angiopathy (HCC) (*05/18/2024 Type 2 diabetes mellitus without complication, *05/19/2024 05/19/2024 Vitamin D deficiency [E55.9] Cerebral amyloid angiopathy (CODE) [I68.0] 06/01/2024 Encounter Status:Closed by LOU KATZ on 07/27/24 Normal [facility] Methylmalonate SerPl-sCncon 07-21-2024 Methylmalonate [Moles/Vol] 0.24 umol/L Normal <=0.40 [facility] Comment on above: Order Comment: Speci men Type: BLOOD SPECIMENOrdering Facility: [facility] Address: [address] [place] [address] Result Comment: This test was developed, and its performance characteristics determined by the [facility] Department of Pathology and Laboratory Medicine. It has not been cleared or approved by the FDA. The [facility] Department of Pathology and Laboratory Medicine is regulated under CLIA as qualified to perform high-complexity testing. This test is used for clinical purposes. It should not be regarded as investigational or for research. Performed By: #### 1 3964-2 ####[facility] LABCLIA [id number] [place] [address] [place] PROTEIN ELECTROPHORESIS SERU M WITH JOES A (P)on 07-21-2024 Albumin [Mass/Vol] 3.95 g/dL Normal 3.43-5.41 [facility] Comment on above: Order Comment: Speci men Type: BLOOD SPECIMENOrdering Facility: [facility] Address: [address] [place] [address] Performed By: #### L [id number] ####[facility] LABIA [id number] [place] [address] [place] Alpha 1 globulin Elph [Mass/Vol] 0.27 g/dL Normal 0.18-0.43 [facility] Comment on above: Order Comment: Speci men Type: BLOOD SPECIMENOrdering Facility: [facility] Address: [address] [place] [address] Performed By: #### L [id number] ####[facility] [id number] [address] [place] Alpha 2 globulin Elph [Mass/Vol] 0.50 g/dL Normal 0.42-0.98 [facility] Comment on above: Order Comment: Speci men Type: BLOOD SPECIMENOrdering Facility: [facility] Address: [address] [place] [address] Performed By: #### L [id number] ####[facility] LABIA [id number] [place] [address] [place] Beta globulin Elph [Mass/Vol] 0.68 g/dL Normal 0.61-1.17 [facility] Comment on above: Order Comment: Speci men Type: BLOOD SPECIMENOrdering Facility: [facility] Address: [address] [place] [address] Performed By: #### L [id number] ####[facility] LABIA [id number] [place] [address] [place] COMMENT (SERUM PROT ELECTRO) Monoclonal Protein analysis (immunofixation) is not indicated. Normal [facility] Comment on above: Order Comment: Speci men Type: BLOOD SPECIMENOrdering Facility: [facility] Address: [address] [place], [place] [id number] Performed By: #### L [id number] ####[facility] LABCLIA [id number] [address] [address] [place] Gamma globulin Elph [Mass/Vol] 0.60 g/dL Normal 0.53-1.51 [facility] Comment on above: Order Comment: Speci men Type: BLOOD SPECIMENOrdering Facility: [facility] Address: [address] [place] [address] Performed By: #### L [id number] ####[facility] LABCLIA [id number] [place] [id number] [place] M-PROTEIN LOCATION Normal [facility] Comment on above: Order Comment: Speci men Type: BLOOD SPECIMENOrdering Facility: [facility] Address: [address] [place] [address] Result Comment: Not Applicable. Performed By: #### L [id number] ####[facility] LABCLIA [id number] [place] [address] [place] Protein Fractions [Interp] No definitive M protein is identified on protein electrophoresis. Normal No definitive M protein is identified on protein electrophor esis. [facility] Comment on above: Order Comment: Speci men Type: BLOOD SPECIMENOrdering Facility: [facility] Address: [address] [place] [address] Performed By: #### L [id number] ####[facility] LABCLIA [id number] [place] [id number] [place] Protein.monoclonal Elph [Mass/Vol] 0.00 g/dL Normal <=0.00 [facility] Comment on above: Order Comment: Speci men Type: BLOOD SPECIMENOrdering Facility: [facility] Address: [address] [place], [place] [id number] Performed By: #### L [id number] ####[facility] LABCLIA [id number] [place] [id number] [place] SPE STAFF REVIEW Reviewed by Dr. Shanice Salvador MD [facility] Comment on above: Order Comment: Speci men Type: BLOOD SPECIMENOrdering Facility: [facility] Address: [address] [place] [address] Performed By: #### L [id number] ####[facility] [id number] [place] [id number] [place] Prot [facility] Protein [Mass/Vol] 6.0 g/dL Low 6.3-8.0 [facility] Comment on above: Order Comment: Speci men Type: BLOOD SPECIMENOrdering Facility: [facility] Address: [address] [place] [address] Performed By: #### 2 132-9, 2885-2 ####[facility] [id number] [place] [id number] [facility] Vit B12 SerPl-[facility] 025 Cobalamin (Vitamin B12) [Mass/Vol] 1376 pg/mL High 232-1245 [facility] Comment on above: Order Comment: Speci men Type: BLOOD SPECIMENOrdering Facility: [facility] Address: [address] [place] [address] Performed By: #### 2 132-9, 2885-2 ####[facility] [id number] [place] [id number] [place] MR Lumbar spine WO contrasto n 07-20-2024 IMPRESSION: Mild canal stenosis at L3-4. Bony foraminal stenosis at L3-4 through L5-S1 as outlined above. Anatomic Lumbar Variant: None. L4-5 is considered the level of the iliac crest and assume there are 5 lumbar-type vertebrae. Bundle Clerk: PETER Transcribe Date/Time: Jul 20 2024 3:47P Dictated by : WILL UP MD This examination was interpreted and the report reviewed and electronically signed by: WILL UP MD on Jul 20 2024 3:54PM [facility] DIVISION OF RADIOLOGY * * *Final Report* * * DATE OF EXAM: Jul 20 2024 3:00PM TIM 0303 - MRI LUMBAR SPINE WO IVCON / PROCEDURE REASON: Spinal stenosis of lumbar region, unspecified whether neurogenic claudication pr * * * * Physician Interpretation * * * * EXAMINATION: MRI LUMBAR SPINE WO IVCON CLINICAL HISTORY: Recent onset progressive low back and bilateral lower extremity pain with reduced sensitivity to temperature, vibration and touch in the lower extremities. TECHNIQUE: Routine lumbosacral spine MR protocol without gadolinium. MQ: [id number] COMPARISON: None. RESULT: Counting reference: Lumbosacral junction. For the purposes of this report, L4-5 is considered the level of the iliac crest and assume there are 5 lumbar-type vertebrae. Anatomic variant: None. Localizer images: Innumerable small T2 hyperintense foci in the kidneys on the flexographic press plate setter images likely representing multiple small cysts. Prominent distended bladder. Alignment: Straightening of normal lumbar lordosis. Severe disc space narrowing is noted at L4-5, moderate to severe disc space narrowing is noted at L5-S1 and mild disc space narrowing is noted at L3-4 and T11-12. Bone marrow signal/fracture: No evidence of pathologic marrow infiltration. No evidence of prior fracture. Conus: The conus is within normal limits of signal intensity and morphology. Paraspinal soft tissues: Paraspinal soft tissues are within normal limits. Lower thoracic spine: Visualized lower thoracic canal and foramina are patent. L1-L2: Canal and foramina are patent. L2-L3: Canal and foramina are patent L3-L4: Minimal disc osteophyte complex and prominent epidural fat causing mild compromise of the thecal sac. Facet degenerative changes and rostrocaudal facet subluxation cause mild right foraminal stenosis. Left neural foramen is patent. L4-L5: Mild osteophyte formation and facet degenerative changes without significant canal stenosis. Facet degenerative changes and rostrocaudal facet subluxation cause moderate bilateral foraminal stenosis. L5-S1: Mild disc osteophyte complex abutting the exiting S1 nerve root sleeves. No impact on the thecal sac. Facet degenerative changes and rostrocaudal facet subluxation cause severe bilateral foraminal stenosis. Sacrum and iliac wings: Well-defined hypointense focus in the medial right iliac bone on T1 and T2 likely representing a bone island. DIVISION OF RADIOLOGY Provider, Kory Casillas - 07/20/2024 * * *Final Report* * * DATE OF EXAM: Jul 20 2024 3:00PM WRM 0303 - MRI LUMBAR SPINE WO IVCON / PROCEDURE REASON: Spinal stenosis of lumbar region, unspecified whether neurogenic claudication pr * * * * Physician Interpretation * * * * EXAMINATION: MRI LUMBAR SPINE WO IVCON CLINICAL HISTORY: Recent onset progressive low back and bilateral lower extremity pain with reduced sensitivity to temperature, vibration and touch in the lower extremities. TECHNIQUE: Routine lumbosacral spine MR protocol without gadolinium. MQ: [id number] COMPARISON: None. RESULT: Counting reference: Lumbosacral junction. For the purposes of this report, L4-5 is considered the level of the iliac crest and assume there are 5 lumbar-type vertebrae. Anatomic variant: None. Localizer images: Innumerable small T2 hyperintense foci in the kidneys on the flexographic press plate setter images likely representing multiple small cysts. Prominent distended bladder. Alignment: Straightening of normal lumbar lordosis. Severe disc space narrowing is noted at L4-5, moderate to severe disc space narrowing is noted at L5-S1 and mild disc space narrowing is noted at L3-4 and T11-12. Bone marrow signal/fracture: No evidence of pathologic marrow infiltration. No evidence of prior fracture. Conus: The conus is within normal limits of signal intensity and morphology. Paraspinal soft tissues: Paraspinal soft tissues are within normal limits. Lower thoracic spine: Visualized lower thoracic canal and foramina are patent. L1-L2: Canal and foramina are patent. L2-L3: Canal and foramina are patent L3-L4: Minimal disc osteophyte complex and prominent epidural fat causing mild compromise of the thecal sac. Facet degenerative changes and rostrocaudal facet subluxation cause mild right foraminal stenosis. Left neural foramen is patent. L4-L5: Mild osteophyte formation and facet degenerative changes without significant canal stenosis. Facet degenerative changes and rostrocaudal facet subluxation cause moderate bilateral foraminal stenosis. L5-S1: Mild disc osteophyte complex abutting the exiting S1 nerve root sleeves. No impact on the thecal sac. Facet degenerative changes and rostrocaudal facet subluxation cause severe bilateral foraminal stenosis. Sacrum and iliac wings: Well-defined hypointense focus in the medial right iliac bone on T1 and T2 likely representing a bone island. IMPRESSION IMPRESSION: Mild canal stenosis at L3-4. Bony foraminal stenosis at L3-4 through L5-S1 as outlined above. Anatomic Lumbar Variant: None. L4-5 is considered the level of the iliac crest and assume there are 5 lumbar-type vertebrae. Bundle Clerk: PSCB Transcribe Date/Time: Jul 20 2024 3:47P Dictated by : WILL UP MD This examination was interpreted and the report reviewed and electronically signed by: WILL UP MD on Jul 20 2024 3:54PM EST [facility] Radiology Study observation (narrative) [facility] MR Lumbar spine WO contrastO rdered By: [facility] Provider on 07-20-2024 [facility] MRI LUMBAR SPINE WO IVCONon 07-20-2024 MRI LUMBAR SPINE WO IVCON * * *Final Report* * * DATE OF EXAM: Jul 20 2024 3:00PM WR 0303 - MRI LUMBAR SPINE WO IVCON / PROCEDURE REASON: Spinal stenosis of lumbar region, unspecified whether neurogenic claudication pr * * * * Physician Interpretation * * * * EXAMINATION: MRI LUMBAR SPINE WO IVCON CLINICAL HISTORY: Recent onset progressive low back and bilateral lower extremity pain with reduced sensitivity to temperature, vibration and touch in the lower extremities. TECHNIQUE: Routine lumbosacral spine MR protocol without gadolinium. MQ: [id number] COMPARISON: None. RESULT: Counting reference: Lumbosacral junction. For the purposes of this report, L4-5 is considered the level of the iliac crest and assume there are 5 lumbar-type vertebrae. Anatomic variant: None. Localizer images: Innumerable small T2 hyperintense foci in the kidneys on the flexographic press plate setter images likely representing multiple small cysts. Prominent distended bladder. Alignment: Straightening of normal lumbar lordosis. Severe disc space narrowing is noted at L4-5, moderate to severe disc space narrowing is noted at L5-S1 and mild disc space narrowing is noted at L3-4 and T11-12. Bone marrow signal/fracture: No evidence of pathologic marrow infiltration. No evidence of prior fracture. Conus: The conus is within normal limits of signal intensity and morphology. Paraspinal soft tissues: Paraspinal soft tissues are within normal limits. Lower thoracic spine: Visualized lower thoracic canal and foramina are patent. L1-L2: Canal and foramina are patent. L2-L3: Canal and foramina are patent L3-L4: Minimal disc osteophyte complex and prominent epidural fat causing mild compromise of the thecal sac. Facet degenerative changes and rostrocaudal facet subluxation cause mild right foraminal stenosis. Left neural foramen is patent. L4-L5: Mild osteophyte formation and facet degenerative changes without significant canal stenosis. Facet degenerative changes and rostrocaudal facet subluxation cause moderate bilateral foraminal stenosis. L5-S1: Mild disc osteophyte complex abutting the exiting S1 nerve root sleeves. No impact on the thecal sac. Facet degenerative changes and rostrocaudal facet subluxation cause severe bilateral foraminal stenosis. Sacrum and iliac wings: Well-defined hypointense focus in the medial right iliac bone on T1 and T2 likely representing a bone island. IMPRESSION: Mild canal stenosis at L3-4. Bony foraminal stenosis at L3-4 through L5-S1 as outlined above. Anatomic Lumbar Variant: None. L4-5 is considered the level of the iliac crest and assume there are 5 lumbar-type vertebrae. Bundle Clerk: [facility] Transcribe Date/Time: Jul 20 2024 3:47P Dictated by : WILL UP MD This examination was interpreted and the report reviewed and electronically signed by: WILL UP MD on Jul 20 2024 3:54PM EST [id number] Normal [facility] EMG(NEURO/NI)on 07-19-2024 Results can be seen in attached scanned documents. If you are a patient reviewing this test result, call the doctor who ordered the test with any questions. [facility] CNOVon 07-15-2024 CNOV Office Visit (EEGAK) JIMI SOTO ([id number]) 1965 M Date Time Provider Department 07/15/24 1:30 PM EEG NEUR ABILIO GRIMES During your visit today, we recorded the following information about you: Referring Provider: KEL JOYA JR [[id number]] Allergies As of Date: 07/15/2024 Noted Allergy Reaction BIAXIN (CLARITHROMYCIN) 12/05/2005 5 - Intolerance DEPAKOTE (DIVALPROEX SODIUM) 12/05/2005 5 - Intolerance IBUPROFEN 12/05/2005 5 - Intolerance Comments: advil LATEX 06/14/2014 16 - Unknown PROZAC (FLUOXETINE HCL) 12/05/2005 5 - Intolerance SPECTAZOLE (ECONAZOLE NITRATE) 12/05/2005 5 - Intolerance WELLBUTRIN (BUPROPION HCL) 12/05/2005 5 - Intolerance Comments: CAUSES [place] [place] Date Reviewed: 07/06/2024 Reviewed by: Dianelys Reynolds PA-C - Fully Assessed Visit Diagnosis:Seizure (HCC) [R56.9] Order(s):[facility] EEG ROUTINE [[id number]] Order #: [id number]. #:[id number]: 1 Prescriptions as of 08/17/2024 - atorvastatin (LIPITOR) 80 mg tablet Take 1 tablet by mouth once daily. - fenofibrate nanocrystallized (TRICOR) 48 mg tablet Take 1 tablet by mouth once daily. - omeprazole (PRILOSEC) 20 mg capsule Take 1 capsule by mouth daily before breakfast. 1/2 hr before meal. - gabapentin (NEURONTIN) 300 mg capsule Take 1 capsule by mouth daily at bedtime for 90 days. - cholecalciferol, Vitamin D3, (VITAMIN D3) 1,250 mcg (50,000 unit) cap capsule Take 1 capsule by mouth one time a week. - docusate sodium (COLACE) 100 mg capsule Take 100 mg by mouth twice daily. - OLANZapine (ZYPREXA) 10 mg tablet Take 2 tablets by mouth daily at bedtime. - lamoTRIgine (LAMICTAL) 200 mg tablet Take 300 mg by mouth once daily. - clonazePAM (KLONOPIN) 1 mg tablet Take 1 mg by mouth at bedtime as needed. - zolpidem (AMBIEN) 10 mg tab Take by mouth at bedtime as needed. - venlafaxine XR (EFFEXOR XR) 150 mg tr24 Take by mouth once daily. - DULoxetine (CYMBALTA) 60 mg capsule Take 60 mg by mouth twice daily. - FERROUS SULFATE (HIGH POTENCY IRON ORAL) Take 1 tablet by mouth once daily. - cyanocobalamin (VITAMIN B-12) 500 mcg tablet Take 2 tablets by mouth once daily. - CARBATROL 300 MG 12 HR CAP Take two capsules two(2) times daily. Facility-Administered Medications as of 08/17/2024 - propofol injection (DIPRIVAN) Problem List As Of Date 07/15/2024 Noted Resolved EPIDERMAL CYST--INFLAMED///SEBACEOUS CYST [L72.*07/29/2007 ACNE: Grade III to IV Inflammatory Nodulocystic*07/29/2007 SCAR AND FIBROSIS OF SKIN [L90.5] 07/29/2007 OPEN WOUND SITE NOS [T14.8XXA] 12/22/2007 Contact Dermatitis and Other Eczema, due to Uns*10/14/2009 Cystic Acne Scars [L90.5] 12/12/2010 Actinic Keratoses (Premalignant AK's) [L57.0] 02/24/2013 Neoplasm of uncertain behavior of skin [D48.5] 02/24/2013 Inflamed seborrheic keratosis [L82.0] 02/24/2013 Inverted follicular keratosis [L11.0] 02/24/2013 Melanocytic nevi of trunk [D22.5] 02/24/2013 Other seborrheic keratosis [L82.1] 02/24/2013 Actinic skin damage [L57.8] 02/24/2013 Cutaneous skin tags [L91.8] 02/24/2013 Sebaceous hyperplasia of face [L73.8] 04/09/2013 Milial cyst [L72.0] 04/09/2013 Postinflammatory skin changes [R23.8] 04/09/2013 Bipolar disorder (HCC) [F31.9] 06/09/2014 Anemia [D64.9] 06/09/2014 Hyperlipidemia [E78.5] Obesity, Class I, BMI 30-34.9 [E66.811] 07/09/2018 Gastroesophageal reflux disease [K21.9] 07/09/2018 CKD (chronic kidney disease) stage 3, GFR 30-59*07/09/2018 Chronic kidney disease (CKD), stage III (modera* Allergy to environmental factors [Z91.09] Essential hypertension [I10] 04/16/2021 OA (osteoarthritis) of knee [M17.9] 10/15/2022 Cognitive decline [R41.89] 05/18/2024 Balance problems [R26.89] 05/18/2024 Cerebral hemorrhage (HCC) [I61.9] 05/18/2024 Hereditary cerebral amyloid angiopathy (HCC) (*05/18/2024 Type 2 diabetes mellitus without complication, *05/19/2024 05/19/2024 Vitamin D deficiency [E55.9] Cerebral amyloid angiopathy (CODE) [I68.0] 06/01/2024 Encounter Status:Closed by FRANTZ WALKER on 08/17/24 Normal [facility] EPIL EEG ROUTINEon [facility] EPIL EEG Routine [[id number]] Patient name: JIMI SOTO Start of test: 07/15/2024 13:59 End of test: 07/15/2024 14:23 Duration: 0 hr 24 min Requested By: KEL JOYA JR Staff Physician: Becca Soliz EEG Fellow or [place]: Mina Harris History: This is a 59 year old right handed male. History of multiple cerebral hemorrhages, Cerebral Amyloid Angiopathy, bipolar disorder, CKD3, HTN, Cognitive decline and balance problems. He is having episodes of seizure like activity. Routine EEG to evaluate. Conditions: Awake Photic Stimulation Tactile Stimulation Auditory Stimulation Classifications: Normal (10-20 Scalp Electrodes, Anterior Temporal Electrodes, Awake, Photic Stimulation, Tactile Stimulation, Auditory Stimulation) Interictal: Normal, Impression: This awake only EEG is within normal limits. No epileptiform discharges or EEG seizures were seen during this recording. Diagnosis: Primary: R56.9 Unspecified convulsions Interpreted and electronically signed by Becca Soliz Date of signin07/15/2024 17:27 NEUROLOGY [facility] CNTHERAPYon 07-14-2024 CNTHERAPY OT/PT/Speech Visit ( LDPT) JIMI SOTO ([id number]) 1965 M Date Time Provider Department 07/14/24 12:45 PM CORRINA JEFF LDPT Date Time Provider Department Center 07/14/2024 12:45 PM [id number], GABRIEL*LDPT [facility] Reason for Visit: PT Progress Note [7696] Cmt: PT Discharge [752] Cmt: Primary Visit Diagnosis:Balance problems [R26.89] Other Visit Diagnosis:Cognitive decline [R41.89] Allergies As of Date: 07/14/2024 Noted Allergy Reaction BIAXIN (CLARITHROMYCIN) 12/05/2005 5 - Intolerance DEPAKOTE (DIVALPROEX SODIUM) 12/05/2005 5 - Intolerance IBUPROFEN 12/05/2005 5 - Intolerance Comments: advil LATEX 06/14/2014 16 - Unknown PROZAC (FLUOXETINE HCL) 12/05/2005 5 - Intolerance SPECTAZOLE (ECONAZOLE NITRATE) 12/05/2005 5 - Intolerance WELLBUTRIN (BUPROPION HCL) 12/05/2005 5 - Intolerance Comments: CAUSES [place] Date Reviewed: 07/06/2024 Reviewed by: Dianelys Reynolds PA-C - Fully Assessed Prescriptions as of 07/14/2024 - omeprazole (PRILOSEC) 20 mg capsule Take 1 capsule by mouth daily before breakfast. 1/2 hr before meal. - predniSONE (DELTASONE) 20 mg tablet Take 60 mg by mouth once daily. - gabapentin (NEURONTIN) 300 mg capsule Take 1 capsule by mouth daily at bedtime for 90 days. - cholecalciferol, Vitamin D3, (VITAMIN D3) 1,250 mcg (50,000 unit) cap capsule Take 1 capsule by mouth one time a week. - fenofibrate nanocrystallized (TRICOR) 48 mg tablet Take 1 tablet by mouth once daily. - atorvastatin (LIPITOR) 80 mg tablet Take 1 tablet by mouth once daily. - docusate sodium (COLACE) 100 mg capsule Take 100 mg by mouth twice daily. - OLANZapine (ZYPREXA) 10 mg tablet Take 2 tablets by mouth daily at bedtime. - lamoTRIgine (LAMICTAL) 200 mg tablet Take 300 mg by mouth once daily. - clonazePAM (KLONOPIN) 1 mg tablet Take 1 mg by mouth at bedtime as needed. - zolpidem (AMBIEN) 10 mg tab Take by mouth at bedtime as needed. - venlafaxine XR (EFFEXOR XR) 150 mg tr24 Take by mouth once daily. - DULoxetine (CYMBALTA) 60 mg capsule Take 60 mg by mouth twice daily. - FERROUS SULFATE (HIGH POTENCY IRON ORAL) Take 1 tablet by mouth once daily. - cyanocobalamin (VITAMIN B-12) 500 mcg tablet Take 2 tablets by mouth once daily. - CARBATROL 300 MG 12 HR CAP Take two capsules two(2) times daily. Facility-Administered Medications as of 07/14/2024 - propofol injection (DIPRIVAN) Normal [facility] MR/BMS.BPon 07-12-2024 MR/[place] [address] OFFICE VISIT Date of Service: 07/12/24 MR#: [id number] Acct: [id number] Name: JIMI SOTO Rep #: [id number] : 1965 Provider: Dr. Martin Mehta se, DO Age/Sex: 59/M Location: [facility] [place].BP Status: Signed Intake Vital Signs 05/24/24 10:37 07/05/24 17:10 07/12/24 14:00 Height 6 ft 2 in 6 ft 2 in 6 ft 2 in Weight: 247 lb BMI 31.7 BP 146/88 H 137/83 H Blood Pressure Location Lt brachial Lt brachial Position Sitting Sitting Respiration 16 16 Pulse 77 76 Pulse Source Monitor Monitor BP Intake Visit Reasons: 6 wk FU Allergies bupropion (From Wellbutrin) Allergy (Verified 07/05/24 17:10) Other clarithromycin (From Biaxin) Allergy (Verified 07/05/24 17:10) Other divalproex sodium (From Depakote) Allergy (Verified 07/05/24 17:10) Other econazole (From Spectazole) Allergy (Verified 07/05/24 17:10) Other fluoxetine (From Prozac) Allergy (Verified 07/05/24 17:10) Other latex Adverse Reaction (Mild, Verified 07/05/24 17:10) Rash ibuprofen Adverse Reaction (Verified 07/05/24 17:10) Nausea/Vom/Diarrhea Medications ???Medication ???Instructions ???Recorded ???Confirmed ???Type fenofibrate nanocrystallized 48 mg 48 mg PO DAILY 05/08/16 07/12/24 History tablet omeprazole 20 mg capsule,delayed 20 mg PO DAILY 05/08/16 07/12/24 H istory release atorvastatin 80 mg tablet 80 mg PO QHS 12/28/21 07/12/24 His tory docusate sodium 100 mg capsule 200 mg PO BID 12/28/21 07/12/24 Hi story ferrous sulfate 27 mg iron tablet 27 mg PO DAILY 12/28/21 07/12/24 History vitamin B12 500 mcg-folic acid 400 1 tab PO DAILY 12/28/21 07/12/24 History mcg tablet cholecalciferol (vitamin D3) 25 25 mcg PO .weekly 01/16/22 5 History mcg (1,000 unit) capsule fenofibrate 40 mg tablet 40 mg PO QDAY 05/24/24 07/12/24 Hi story gabapentin 300 mg capsule 300 mg PO QHS #14 caps 07/05/24 Rx prednisone 20 mg tablet 60 mg (3 x 20 mg) PO DAILY #12 02/1907/12/24 Rx TABLETS carbamazepine 300 mg 600 mg (2 x 300 mg) PO BID #60 cap s 07/12/24 07/12/24 Rx capsule,extended release [id number] clonazepam 1 mg tablet 1 mg PO QHS 30 days #30 tabs 07/1207/12/24 Rx duloxetine 60 mg capsule,delayed 60 mg PO BID #60 caps 07/12/24 Rx release lamotrigine 150 mg tablet 300 mg (2 x 150 mg) PO QHS 30 days 07/12/24 07/12/24 Rx #60 tabs olanzapine 7.5 mg tablet 7.5 mg PO QHS #30 tabs 07/12/24 Rx venlafaxine 150 mg 150 mg PO DAILY #30 caps 07/12/24 07/12/24 Rx capsule,extended release 24 hr zolpidem 10 mg tablet (Ambien) 10 mg PO QHS #30 tabs 07/12/24 Rx PFSH Medical History (Updated 07/13/24 @ 06:[address] Martin Daniel DO) Seizure disorder Cognitive communication deficit Wears glasses Arthritis Low iron Restless legs Back pain Injury of head and neck Syncope Dietary restriction Oral hygiene poor History of hiatal hernia Bleeding hemorrhoid History of IBS Gastric reflux Non-smoker Shortness of breath on exertion Chronic cough Leg cramps History of pain when walking History of edema Decay, teeth High cholesterol HTN (hypertension) Bipolar 1 disorder Chronic kidney disease Surgical History S/P laparoscopic cholecystectomy ( 12/2021) History of bone marrow biopsy Hx of colonoscopy Hx of esophagogastroduodenoscopy History of excision of lesion S/P appendectomy Family History Father Cancer prostate cancer, skin cancer Hypertension Mother Diabetes Sister Kidney disease Seizures Social History Smoking Status: Never smoker alcohol intake: never substance use type: does not use HPI History of Present Illness History provided by: patient HPI: Jimi Soto is a 59 year old male who presents today for follow up evaluation. Presents today with his sister, Antonia. Per sister, has been having some worsening pain in legs and lower back. Describes as both pain and numbness/tingling. Went to ER and is set to have a back MRI and EMG in near future. Was started on gabapentin at bed time but feels like it has not been helping much in regards to pain to this point. Since reducing olanzapine to 7.5 mg, sister feels like he is more like him old self. He does feel like he is more talkative. Sleep is largely unchanged. Does continue to feel somewhat fatigued during the day. Feels like his blurred vision is somewhat improved. Memory has been maybe sligihtly improved. Sister states that she has concerned for possible seizure like activity in recent past. Is set to have an EEG . Has established with Keli (more content not included)... Normal [facility] CNOVon 07-06-2024 CNOV Office Visit (NEMOWS ) JIMI SOTO ([id number]) 1965 M Date Time Provider Department 07/06/24 12:45 PM DIANELYS REYNOLDS During your visit today, we recorded the following information about you: Pulse Blood pressure Weight 79/minute 134/82 112 kg Chandler Hylton LPN 07/06/2024 1:48 PM Signed Dianelys Reynolds PA-C 07/06/2024 1:48 PM Signed [facility] for General Neurology Name: Jimi Soto Age: [age] year old Gender: male Primary Care Provider: Alpesh Hill MD Chief Complaint:New Patient (Worsening numbness, weakness in BLE- see mychart 06/2024) 07/06/2024 - General Neurology, Dianelys Reynolds PA-C ASSESSMENT ASSESSMENT/PLAN: 1. Spinal stenosis of lumbar region, unspecified whether neurogenic claudication present - ICD9: 724.02, ICD10: M48.061 (primary diagnosis) 2. Pain in both lower extremities - ICD9: 729.5, ICD10: M79.604, M79.605 Patient originally follow-up for cognitive concerns and abnormal MRI of the brain. However, messaged in on due to concerns of pain in the legs and the back. Was seen in the emergency department [facility] last night, x-ray of the lumbar spine did show some diffuse degeneration patient with history of lumbar issues in the past. Notes history of sciatica as well with similar presentation. Describing onset 2 months ago, has been worsening in severity and occurrence. Notes daily symptoms that present randomly, no trigger that he can think of other than prolonged periods of standing but can also happen when sitting. No bowel or bladder incontinence or saddle anesthesia, no falls with this. No significant weakness. Patient does have some mild sensory changes on exam decreased temperature and vibration of the lower extremities. Decreased Achilles reflexes as well. At this time, due to history of lumbar disease and patient's symptom presentation concern for possible lumbar etiology. However, due to other sensory changes to discuss an EMG and patient is amenable. Due to his history of lumbar stenosis with multiple surgeries in the past we will order MRI of the lumbar spine. Discussed referral to physical therapy but patient would like to think about that. Notes that since has been on the gabapentin since last night his symptoms had completely resolved and like to continue this therapy. Refills for gabapentin were sent for the 300 mg at bedtime. Discussed red flag signs symptoms that would warrant going to the emergency department, patient agrees and understands. Patient to follow-up as planned with Dr. Joya in a month. PDMP website checked and validated. All prescriptions have been APPROPRIATELY filled. No suspicious activity was identified. 07/06/2024 by YUDELKA Couch PA-C Encounter Diagnosis ICD-10-CM 1. Spinal stenosis of lumbar region, unspecified whether neurogenic claudication present M48.061 CONSULT TO PHYSICAL THERAPY MRI LUMBAR SPINE WO IVCON 2. Pain in both lower extremities M79.604 EMG(NEURO/NI) M79.605 CONSULT TO PHYSICAL THERAPY No follow-ups on file. Chart, labs,and relevant images reviewed. HPI: Sent in [facility] 07/04/24 He's been complaining of intermittent numbness, weakness AND severe pain - sometimes in one leg, but is mostly in both legs; sometimes occurs from waist on down, including lower back AND hips; pain is always 10/10 pain when it occurs; he can't remember how long it lasts; happens several times a week - sometimes it lasts most of the day, which is when he can't leave the house. Stated even when he thought he could go somewhere, he was still suffering with it AND could barely walk; reports it's really difficult to stand or walk when it's really bad AND he has to get to a chair or bed quickly to get off his feet; I'm concerned about him having decreased mobility/function, especially when driving but he denies any episodes while driving. Seen on 04/30/24 for cognitive decline, concern for neurodeg vs CAA, sent to CV. Also concerned for possible PD. This is a 59 year old male presenting with pain in the legs and low back. Onset was about 2 months ago, notes it is for started when he was laying in bed and shooting pains down the backs of the legs and low back. Has been occurring intermittently, worsens the longer he standing on his feet but can also occur when he sitting. Has no idea what is going to come on, typically occurs daily but can last for variable amount of time including minutes to hours. Notes that it is getting worse in terms of severity and longevity. No significant triggers that he can think of other than noted above. No injury or other etiology that he can think of. Notes he has had sciatica in the past before which is similar. Has gone through multiple low back surgeries and physical therapy with some improvement. However, his sister (more content not included)... Normal [facility] Emergency Department Summary on 07-05-2024 Emergency Department Summary [facility] Medical Records Department [address] [place] [address] Emergency Department Summary 07/05/24 MR#: [id number] Acct: [id number] Name: JIMI SOTO Rep #: [id number] : 1965 59 From: Tony Puente PCP: Dr. Jose R Hill MD Status:DEP ER Location: ED HPI History of Present Illness Chief Complaint: Lower Extremity Injury Informant: patient Narrative Narrative: Presents with intermittent bilateral lower leg pain for the last 2 months. He states he will come daily. He said neck and back issues in the past. Denies history of diabetes. States currently no significant pain. However states would have sharp pain occasionally. Denies any loss of bowel or bladder control. Denies any trauma. Prior similar symptoms: No PFSH PFSH Medical History Cognitive communication deficit Wears glasses Arthritis Low iron Restless legs Back pain Injury of head and neck Syncope Dietary restriction Oral hygiene poor History of hiatal hernia Bleeding hemorrhoid History of IBS Gastric reflux Non-smoker Shortness of breath on exertion Chronic cough Leg cramps History of pain when walking History of edema Decay, teeth High cholesterol HTN (hypertension) Bipolar 1 disorder Chronic kidney disease Home Medications ???Medication ???Instructions ???Recorded ???Last Taken ???Type fenofibrate nanocrystallized 48 mg 48 mg PO DAILY 05/08/16 05/08/16 History tablet omeprazole 20 mg capsule,delayed 20 mg PO DAILY 05/08/16 05/08/16 H istory release atorvastatin 80 mg tablet 80 mg PO QHS 12/28/21 Unknown Hist ory docusate sodium 100 mg capsule 200 mg PO BID 12/28/21 Unknown His tory ferrous sulfate 27 mg iron tablet 27 mg PO DAILY 12/28/21 Unknown H istory vitamin B12 500 mcg-folic acid 400 1 tab PO DAILY 12/28/21 Unknown History mcg tablet cholecalciferol (vitamin D3) 25 25 mcg PO .weekly 01/16/22 Unknown History mcg (1,000 unit) capsule carbamazepine 300 mg 600 mg (2 x 300 mg) PO BID #60 cap s 05/24/24 Unknown Rx capsule,extended release [id number] clonazepam 1 mg tablet 1 mg PO QHS 30 days #30 tabs 05/24 Unknown Rx duloxetine 60 mg capsule,delayed 60 mg PO BID #60 caps 05/24/24 Unk nown Rx release fenofibrate 40 mg tablet 40 mg PO QDAY 05/24/24 Unknown His tory lamotrigine 150 mg tablet 300 mg (2 x 150 mg) PO QHS 30 days 05/24/24 Unknown Rx #60 tabs olanzapine 7.5 mg tablet 7.5 mg PO QHS #30 tabs 05/24/24 Un known Rx venlafaxine 150 mg 150 mg PO DAILY #30 caps 05/24/24 Unknown Rx capsule,extended release 24 hr zolpidem 10 mg tablet (Ambien) 10 mg PO QHS #30 tabs 05/24/24 Unk nown Rx gabapentin 300 mg capsule 300 mg PO QHS #14 caps 07/05/24 Un known Rx prednisone 20 mg tablet 60 mg (3 x 20 mg) PO DAILY #12 02/19 Unknown Rx TABLETS Allergy/AdvReac Type Severity Reaction Status Date / Time bupropion (From Wellbutrin) Allergy Other Verified 07/05/24 17:10 clarithromycin (From Biaxin) Allergy Other Verified 07/05/24 17:10 divalproex sodium (From Allergy Other Verified 07/05/24 17:10 Depakote) econazole (From Spectazole) Allergy Other Verified 07/05/24 17:10 fluoxetine (From Prozac) Allergy Other Verified 07/05/24 17:10 latex AdvReac Mild Rash Verified 07/05/24 17:10 ibuprofen AdvReac Nausea/Vom/ Verified 07/05/24 17:10 Diarrhea Family History Father Cancer prostate cancer, skin cancer Hypertension Mother Diabetes Sister Kidney disease Seizures Surgical History S/P laparoscopic cholecystectomy ( 12/2021) History of bone marrow biopsy Hx of colonoscopy Hx of esophagogastroduodenoscopy History of excision of lesion S/P appendectomy Social History Smoking Status: Never smoker alcohol intake: never substance use type: does not use ROS ROS ED Constitutional Constitutional ED: Denies chills, fever(s) or sweats ENT ENT ED: Denies sore throat Cardiovascular Cardiovascular: Denies chest pain, leg edema, palpitations or racing heartbeat Respiratory/Chest Respiratory/Chest: Denies cough, dyspnea or dyspnea on exertion Gastrointestinal Gastrointestinal: Denies abdominal pain, diarrhea, nausea or vomiting Genitourinary Genitourinary ED: Denies dysuria, hematuria or urinary frequency Musculoskeletal Musculoskeletal: Reports back pain and extremity pain; Denies neck pain Integumentary Denies rash or wounds Neurologic Neurologic: Denies headache(s), paresthesias or weakness EXAM Physical Exam Const Vital Signs: 07/05/24 17:10 07/05/24 19:23 Temperature 97.4 F L 97.4 F L Temperature (more content not included)... Normal [facility] Lumbar Spine 2 or 3 Viewson 07-05-2024 Lumbar Spine 2 or 3 Views [facility] Imaging Services [address] [place] [address] Lumbar Spine 2 or 3 Views MR#: [id number] Acct: [id number] Name: JIMI SOTO Rep #: [id number] : 1965 M 59 From: Derek kelley MD PCP: Dr. Jose R Hill MD Status: REG ER Study: Lumbar Spine 2 or 3 Views Date of Exam: Exam# [id number] Ordering Dr: Tony Buckley DO PROCEDURE: LUMBAR SPINE 2 OR 3 VIEWS REASON FOR EXAM: PAIN TECHNIQUE: 2 view(s) of the lumbar spine COMPARISON: None. FINDINGS: Lumbar lordosis is maintained. Vertebral body heights are within normal limits. Multilevel loss of disc spaces most prominent at L4-L5 and L5-S1 pedicles are intact. Osseous architecture is maintained. No acute fracture or traumatic subluxation. Multilevel degenerative changes, most prominent at L4-L5 and L5-S1. SI joints are unremarkable. No suspicious lytic or sclerotic lesions. Moderate colonic stool. RAD/Lumbar Spine 2 or 3 Views IMPRESSION: No acute fracture or traumatic subluxation. Multilevel degenerative changes most prominent at L4-L5 and L5-S1. Reading Location: [facility] CC: Dr. Jose R Hill MD; Dr. Tony Buckley DO Bundle Clerk: Signed Normal [facility] CNTHERAPYon 06-22-2024 CNTHERAPY OT/PT/Speech Visit ( LDPT) JIMI SOTO ([id number]) 1965 M Date Time Provider Department 06/22/24 3:00 PM KAVON MORENO Date Time Provider Department Center 06/22/2024 3:00 PM [id number] MORENO [facility] Reason for Visit: Physical Therapy [503] Primary Visit Diagnosis:Balance problems [R26.89] Other Visit Diagnosis:Cognitive decline [R41.89] Allergies As of Date: 06/22/2024 Noted Allergy Reaction BIAXIN (CLARITHROMYCIN) 12/05/2005 5 - Intolerance DEPAKOTE (DIVALPROEX SODIUM) 12/05/2005 5 - Intolerance IBUPROFEN 12/05/2005 5 - Intolerance Comments: advil LATEX 06/14/2014 16 - Unknown PROZAC (FLUOXETINE HCL) 12/05/2005 5 - Intolerance SPECTAZOLE (ECONAZOLE NITRATE) 12/05/2005 5 - Intolerance WELLBUTRIN (BUPROPION HCL) 12/05/2005 5 - Intolerance Comments: [employer] Date Reviewed: 05/19/2024 Reviewed by: Alpesh Hill MD - Fully Assessed Prescriptions as of 06/22/2024 - cholecalciferol, Vitamin D3, (VITAMIN D3) 1,250 mcg (50,000 unit) cap capsule Take 1 capsule by mouth one time a week. - fenofibrate nanocrystallized (TRICOR) 48 mg tablet Take 1 tablet by mouth once daily. - omeprazole (PRILOSEC) 20 mg capsule Take 1 capsule by mouth daily before breakfast. 1/2 hr before meal. - atorvastatin (LIPITOR) 80 mg tablet Take 1 tablet by mouth once daily. - docusate sodium (COLACE) 100 mg capsule Take 100 mg by mouth twice daily. - OLANZapine (ZYPREXA) 10 mg tablet Take 2 tablets by mouth daily at bedtime. - lamoTRIgine (LAMICTAL) 200 mg tablet Take 300 mg by mouth once daily. - clonazePAM (KLONOPIN) 1 mg tablet Take 1 mg by mouth at bedtime as needed. - zolpidem (AMBIEN) 10 mg tab Take by mouth at bedtime as needed. - venlafaxine XR (EFFEXOR XR) 150 mg tr24 Take by mouth once daily. - DULoxetine (CYMBALTA) 60 mg capsule Take 60 mg by mouth twice daily. - FERROUS SULFATE (HIGH POTENCY IRON ORAL) Take 1 tablet by mouth once daily. - cyanocobalamin (VITAMIN B-12) 500 mcg tablet Take 2 tablets by mouth once daily. - CARBATROL 300 MG 12 HR CAP Take two capsules two(2) times daily. 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] Cerebral amyloid angiopathy (CODE) [I68.0] Allergies As of Date: 06/22/2024 Noted Allergy Reaction BIAXIN (CLARITHROMYCIN) 12/05/2005 5 - Intolerance DEPAKOTE (DIVALPROEX SODIUM) 12/05/2005 5 - Intolerance IBUPROFEN 12/05/2005 5 - Intolerance Comments: advil LATEX 06/14/2014 16 - Unknown PROZAC (FLUOXETINE HCL) 12/05/2005 5 - Intolerance SPECTAZOLE (ECONAZOLE NITRATE) 12/05/2005 5 - Intolerance WELLBUTRIN (BUPROPION HCL) 12/05/2005 5 - Intolerance Comments: [employer] Date Reviewed: 05/19/2024 Reviewed by: Alpesh Hill MD - Fully Assessed Prescriptions as of 06/22/2024 - cholecalciferol, Vitamin D3, (VITAMIN D3) 1,250 mcg (50,000 unit) cap capsule Take 1 capsule by mouth one time a week. - fenofibrate nanocrystallized (TRICOR) 48 mg tablet Take 1 tablet by mouth once daily. - omeprazole (PRILOSEC) 20 mg capsule Take 1 capsule by mouth daily before breakfast. 1/2 hr before meal. - atorvastatin (LIPITOR) 80 mg tablet Take 1 tablet by mouth once daily. - docusate sodium (COLACE) 100 mg capsule Take 100 mg by mouth twice daily. - OLANZapine (ZYPREXA) 10 mg tablet Take 2 tablets by mouth daily at bedtime. - lamoTRIgine (LAMICTAL) 200 mg tablet Take 300 mg by mouth once daily. - clonazePAM (KLONOPIN) 1 mg tablet Take 1 mg by mouth at bedtime as needed. - zolpidem (AMBIEN) 10 mg tab Take by mouth at bedtime as needed. - venlafaxine XR (EFFEXOR XR) 150 mg tr24 Take by mouth once daily. - DULoxetine (CYMBALTA) 60 mg capsule Take 60 mg by mouth twice daily. - FERROUS SULFATE (HIGH POTENCY IRON ORAL) Take 1 tablet by mouth once daily. - cyanocobalamin (VITAMIN B-12) 500 mcg tablet Take 2 tablets by mouth once daily. - CARBATROL 300 MG 12 HR CAP Take two capsules two(2) times daily. 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] Cerebral amyloid angiopathy (CODE) [I68.0] Allergies As of Date: 06/15/2024 Noted Allergy Reaction BIAXIN (CLARITHROMYCIN) 12/05/2005 5 - Intolerance DEPAKOTE (DIVALPROEX SODIUM) 12/05/2005 5 - Intolerance IBUPROFEN 12/05/2005 5 - Intolerance Comments: advil LATEX 06/14/2014 16 - Unknown PROZAC (FLUOXETINE HCL) 12/05/2005 5 - Intolerance SPECTAZOLE (ECONAZOLE NITRATE) 12/05/2005 5 - Intolerance WELLBUTRIN (BUPROPION HCL) 12/05/2005 5 - Intolerance Comments: [employer] Date Reviewed: 05/19/2024 Reviewed by: Alpesh Hill MD - Fully Assessed Prescriptions as of 06/15/2024 - cholecalciferol, Vitamin D3, (VITAMIN D3) 1,250 mcg (50,000 unit) cap capsule Take 1 capsule by mouth one time a week. - fenofibrate nanocrystallized (TRICOR) 48 mg tablet Take 1 tablet by mouth once daily. - omeprazole (PRILOSEC) 20 mg capsule Take 1 capsule by mouth daily before breakfast. 1/2 hr before meal. - atorvastatin (LIPITOR) 80 mg tablet Take 1 tablet by mouth once daily. - docusate sodium (COLACE) 100 mg capsule Take 100 mg by mouth twice daily. - OLANZapine (ZYPREXA) 10 mg tablet Take 2 tablets by mouth daily at bedtime. - lamoTRIgine (LAMICTAL) 200 mg tablet Take 300 mg by mouth once daily. - clonazePAM (KLONOPIN) 1 mg tablet Take 1 mg by mouth at bedtime as needed. - zolpidem (AMBIEN) 10 mg tab Take by mouth at bedtime as needed. - venlafaxine XR (EFFEXOR XR) 150 mg tr24 Take by mouth once daily. - DULoxetine (CYMBALTA) 60 mg capsule Take 60 mg by mouth twice daily. - FERROUS SULFATE (HIGH POTENCY IRON ORAL) Take 1 tablet by mouth once daily. - cyanocobalamin (VITAMIN B-12) 500 mcg tablet Take 2 tablets by mouth once daily. - CARBATROL 300 MG 12 HR CAP Take two capsules two(2) times daily. Facility-Administered Medications as of 06/15/2024 - propofol injection (DIPRIVAN) Normal [facility] CNTHERAPY OT/PT/Speech Visit ( LDPT) JIMI SOTO ([id number]) 1965 M Date Time Provider Department 06/15/24 10:45 AM SHAJI YOUNGER Date Time Provider Department Center 06/15/2024 10:45 AM [id number] YOUNGERLDMIGEL [facility] Reason for Visit: Physical Therapy [503] Primary Visit Diagnosis:Balance problems [R26.89] Other Visit Diagnosis:Cognitive decline [R41.89] Allergies As of Date: 06/15/2024 Noted Allergy Reaction BIAXIN (CLARITHROMYCIN) 12/05/2005 5 - Intolerance DEPAKOTE (DIVALPROEX SODIUM) 12/05/2005 5 - Intolerance IBUPROFEN 12/05/2005 5 - Intolerance Comments: advil LATEX 06/14/2014 16 - Unknown PROZAC (FLUOXETINE HCL) 12/05/2005 5 - Intolerance SPECTAZOLE (ECONAZOLE NITRATE) 12/05/2005 5 - Intolerance WELLBUTRIN (BUPROPION HCL) 12/05/2005 5 - Intolerance Comments: [employer] Date Reviewed: 05/19/2024 Reviewed by: Alpesh Hill MD - Fully Assessed Prescriptions as of 06/15/2024 - cholecalciferol, Vitamin D3, (VITAMIN D3) 1,250 mcg (50,000 unit) cap capsule Take 1 capsule by mouth one time a week. - fenofibrate nanocrystallized (TRICOR) 48 mg tablet Take 1 tablet by mouth once daily. - omeprazole (PRILOSEC) 20 mg capsule Take 1 capsule by mouth daily before breakfast. 1/2 hr before meal. - atorvastatin (LIPITOR) 80 mg tablet Take 1 tablet by mouth once daily. - docusate sodium (COLACE) 100 mg capsule Take 100 mg by mouth twice daily. - OLANZapine (ZYPREXA) 10 mg tablet Take 2 tablets by mouth daily at bedtime. - lamoTRIgine (LAMICTAL) 200 mg tablet Take 300 mg by mouth once daily. - clonazePAM (KLONOPIN) 1 mg tablet Take 1 mg by mouth at bedtime as needed. - zolpidem (AMBIEN) 10 mg tab Take by mouth at bedtime as needed. - venlafaxine XR (EFFEXOR XR) 150 mg tr24 Take by mouth once daily. - DULoxetine (CYMBALTA) 60 mg capsule Take 60 mg by mouth twice daily. - FERROUS SULFATE (HIGH POTENCY IRON ORAL) Take 1 tablet by mouth once daily. - cyanocobalamin (VITAMIN B-12) 500 mcg tablet Take 2 tablets by mouth once daily. - CARBATROL 300 MG 12 HR CAP Take two capsules two(2) times daily. Facility-Administered Medications as of 06/15/2024 - propofol injection (DIPRIVAN) Normal [facility] CNTHERAPYon 06-08-2024 CNTHERAPY OT/PT/Speech Visit ( LDSP) JIMI SOTO ([id number]) 1965 M Date Time Provider Department 06/08/24 1:30 PM LENORA MORAN Date Time Provider Department Center 06/08/2024 1:30 PM [id number] MORAN [facility] Reason for Visit: Speech Therapy [3489] Primary Visit Diagnosis:Cognitive decline [R41.89] Allergies As of Date: 06/08/2024 Noted Allergy Reaction BIAXIN (CLARITHROMYCIN) 12/05/2005 5 - Intolerance DEPAKOTE (DIVALPROEX SODIUM) 12/05/2005 5 - Intolerance IBUPROFEN 12/05/2005 5 - Intolerance Comments: advil LATEX 06/14/2014 16 - Unknown PROZAC (FLUOXETINE HCL) 12/05/2005 5 - Intolerance SPECTAZOLE (ECONAZOLE NITRATE) 12/05/2005 5 - Intolerance WELLBUTRIN (BUPROPION HCL) 12/05/2005 5 - Intolerance Comments: [employer] Date Reviewed: 05/19/2024 Reviewed by: Alpesh Hill MD - Fully Assessed Prescriptions as of 06/08/2024 - cholecalciferol, Vitamin D3, (VITAMIN D3) 1,250 mcg (50,000 unit) cap capsule Take 1 capsule by mouth one time a week. - fenofibrate nanocrystallized (TRICOR) 48 mg tablet Take 1 tablet by mouth once daily. - omeprazole (PRILOSEC) 20 mg capsule Take 1 capsule by mouth daily before breakfast. 1/2 hr before meal. - atorvastatin (LIPITOR) 80 mg tablet Take 1 tablet by mouth once daily. - docusate sodium (COLACE) 100 mg capsule Take 100 mg by mouth twice daily. - OLANZapine (ZYPREXA) 10 mg tablet Take 2 tablets by mouth daily at bedtime. - lamoTRIgine (LAMICTAL) 200 mg tablet Take 300 mg by mouth once daily. - clonazePAM (KLONOPIN) 1 mg tablet Take 1 mg by mouth at bedtime as needed. - zolpidem (AMBIEN) 10 mg tab Take by mouth at bedtime as needed. - venlafaxine XR (EFFEXOR XR) 150 mg tr24 Take by mouth once daily. - DULoxetine (CYMBALTA) 60 mg capsule Take 60 mg by mouth twice daily. - FERROUS SULFATE (HIGH POTENCY IRON ORAL) Take 1 tablet by mouth once daily. - cyanocobalamin (VITAMIN B-12) 500 mcg tablet Take 2 tablets by mouth once daily. - CARBATROL 300 MG 12 HR CAP Take two capsules two(2) times daily. Facility-Administered Medications as of 06/08/2024 - propofol injection (DIPRIVAN) Normal [facility] CNTHERAPY OT/PT/Speech Visit ( LDPT) JIMI SOTO ([id number]) 1965 M Date Time Provider Department 06/08/24 10:45 AM KAVON OMRENO Date Time Provider Department Center 06/08/2024 10:45 AM [id number] MORENO [facility] Reason for Visit: Physical Therapy [503] Primary Visit Diagnosis:Cognitive decline [R41.89] Other Visit Diagnosis:Balance problems [R26.89] Allergies As of Date: 06/08/2024 Noted Allergy Reaction BIAXIN (CLARITHROMYCIN) 12/05/2005 5 - Intolerance DEPAKOTE (DIVALPROEX SODIUM) 12/05/2005 5 - Intolerance IBUPROFEN 12/05/2005 5 - Intolerance Comments: advil LATEX 06/14/2014 16 - Unknown PROZAC (FLUOXETINE HCL) 12/05/2005 5 - Intolerance SPECTAZOLE (ECONAZOLE NITRATE) 12/05/2005 5 - Intolerance WELLBUTRIN (BUPROPION HCL) 12/05/2005 5 - Intolerance Comments: [employer] Date Reviewed: 05/19/2024 Reviewed by: Alpesh Hill MD - Fully Assessed Prescriptions as of 06/08/2024 - cholecalciferol, Vitamin D3, (VITAMIN D3) 1,250 mcg (50,000 unit) cap capsule Take 1 capsule by mouth one time a week. - fenofibrate nanocrystallized (TRICOR) 48 mg tablet Take 1 tablet by mouth once daily. - omeprazole (PRILOSEC) 20 mg capsule Take 1 capsule by mouth daily before breakfast. 1/2 hr before meal. - atorvastatin (LIPITOR) 80 mg tablet Take 1 tablet by mouth once daily. - docusate sodium (COLACE) 100 mg capsule Take 100 mg by mouth twice daily. - OLANZapine (ZYPREXA) 10 mg tablet Take 2 tablets by mouth daily at bedtime. - lamoTRIgine (LAMICTAL) 200 mg tablet Take 300 mg by mouth once daily. - clonazePAM (KLONOPIN) 1 mg tablet Take 1 mg by mouth at bedtime as needed. - zolpidem (AMBIEN) 10 mg tab Take by mouth at bedtime as needed. - venlafaxine XR (EFFEXOR XR) 150 mg tr24 Take by mouth once daily. - DULoxetine (CYMBALTA) 60 mg capsule Take 60 mg by mouth twice daily. - FERROUS SULFATE (HIGH POTENCY IRON ORAL) Take 1 tablet by mouth once daily. - cyanocobalamin (VITAMIN B-12) 500 mcg tablet Take 2 tablets by mouth once daily. - CARBATROL 300 MG 12 HR CAP Take two capsules two(2) times daily. Facility-Administered Medications as of 06/08/2024 - propofol injection (DIPRIVAN) Director Critical Care: Therapy (PT/OT/Speech/Resp) ID: [id number] 06/08/2024 11:31 AM Author: KAVON MORENO Signed by KAVON MORENO [employer] on 06/08/2024 at 11:31 AM Document text: Program_ID:[id number] Access Code: [email or web address] URL: [email or web address] Date: 06-08-2024 Prepared By: Raya Moreno Program Notes Exercises - Supine Hip Abduction - 1-2 x daily - 5 x weekly - 2-3 sets - 10 reps - Standing Heel Raise - 1-2 x daily - 5 x weekly - 2-3 sets - 10 reps - Tandem Stance with Support - 1-2 x daily - 5 x weekly - 2-3 sets - 10 reps - Standing Lumbar Extension - 1-2 x daily - 5 x weekly - 2-3 sets - 10 reps Normal [facility] THERAPY NTon 06-08-2024 THERAPY NT HNO ID: [id number] Author: KAVON MORENO PTA Service: ? Author Type: Guest Services Representative Type: Therapy (PT/OT/Speech/Resp) Filed: 06/08/2024 11:31 Note Text: Program_ID:[id number] Access Code: [email or web address] URL: [email or web address] Date: 06-08-2024 Prepared By: Raya Moreno Program Notes Exercises - Supine Hip Abduction - 1-2 x daily - 5 x weekly - 2-3 sets - 10 reps - Standing Heel Raise - 1-2 x daily - 5 x weekly - 2-3 sets - 10 reps - Tandem Stance with Support - 1-2 x daily - 5 x weekly - 2-3 sets - 10 reps - Standing Lumbar Extension - 1-2 x daily - 5 x weekly - 2-3 sets - 10 reps Normal [facility] CNTHERAPYon 06-01-2024 CNTHERAPY OT/PT/Speech Visit ( LDPT) JIMI SOTO ([id number]) 1965 M Date Time Provider Department 06/01/24 3:00 PM KAVON MORENO Date Time Provider Department Center 06/01/2024 3:00 PM [id number] MORENO [facility] Reason for Visit: Physical Therapy [503] Primary Visit Diagnosis:Cognitive decline [R41.89] Other Visit Diagnosis:Balance problems [R26.89] Allergies As of Date: 06/01/2024 Noted Allergy Reaction BIAXIN (CLARITHROMYCIN) 12/05/2005 5 - Intolerance DEPAKOTE (DIVALPROEX SODIUM) 12/05/2005 5 - Intolerance IBUPROFEN 12/05/2005 5 - Intolerance Comments: advil LATEX 06/14/2014 16 - Unknown PROZAC (FLUOXETINE HCL) 12/05/2005 5 - Intolerance SPECTAZOLE (ECONAZOLE NITRATE) 12/05/2005 5 - Intolerance WELLBUTRIN (BUPROPION HCL) 12/05/2005 5 - Intolerance Comments: [employer] Date Reviewed: 05/19/2024 Reviewed by: Alpesh Hill MD - Fully Assessed Prescriptions as of 06/01/2024 - cholecalciferol, Vitamin D3, (VITAMIN D3) 1,250 mcg (50,000 unit) cap capsule Take 1 capsule by mouth one time a week. - fenofibrate nanocrystallized (TRICOR) 48 mg tablet Take 1 tablet by mouth once daily. - omeprazole (PRILOSEC) 20 mg capsule Take 1 capsule by mouth daily before breakfast. 1/2 hr before meal. - atorvastatin (LIPITOR) 80 mg tablet Take 1 tablet by mouth once daily. - docusate sodium (COLACE) 100 mg capsule Take 100 mg by mouth twice daily. - OLANZapine (ZYPREXA) 10 mg tablet Take 2 tablets by mouth daily at bedtime. - lamoTRIgine (LAMICTAL) 200 mg tablet Take 300 mg by mouth once daily. - clonazePAM (KLONOPIN) 1 mg tablet Take 1 mg by mouth at bedtime as needed. - zolpidem (AMBIEN) 10 mg tab Take by mouth at bedtime as needed. - venlafaxine XR (EFFEXOR XR) 150 mg tr24 Take by mouth once daily. - DULoxetine (CYMBALTA) 60 mg capsule Take 60 mg by mouth twice daily. - FERROUS SULFATE (HIGH POTENCY IRON ORAL) Take 1 tablet by mouth once daily. - cyanocobalamin (VITAMIN B-12) 500 mcg tablet Take 2 tablets by mouth once daily. - CARBATROL 300 MG 12 HR CAP Take two capsules two(2) times daily. 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] Cerebral amyloid angiopathy (CODE) [I68.0] Allergies As of Date: 06/01/2024 Noted Allergy Reaction BIAXIN (CLARITHROMYCIN) 12/05/2005 5 - Intolerance DEPAKOTE (DIVALPROEX SODIUM) 12/05/2005 5 - Intolerance IBUPROFEN 12/05/2005 5 - Intolerance Comments: advil LATEX 06/14/2014 16 - Unknown PROZAC (FLUOXETINE HCL) 12/05/2005 5 - Intolerance SPECTAZOLE (ECONAZOLE NITRATE) 12/05/2005 5 - Intolerance WELLBUTRIN (BUPROPION HCL) 12/05/2005 5 - Intolerance Comments: [employer] Date Reviewed: 05/19/2024 Reviewed by: Alpesh Hill MD - Fully Assessed Prescriptions as of 06/01/2024 - cholecalciferol, Vitamin D3, (VITAMIN D3) 1,250 mcg (50,000 unit) cap capsule Take 1 capsule by mouth one time a week. - fenofibrate nanocrystallized (TRICOR) 48 mg tablet Take 1 tablet by mouth once daily. - omeprazole (PRILOSEC) 20 mg capsule Take 1 capsule by mouth daily before breakfast. 1/2 hr before meal. - atorvastatin (LIPITOR) 80 mg tablet Take 1 tablet by mouth once daily. - docusate sodium (COLACE) 100 mg capsule Take 100 mg by mouth twice daily. - OLANZapine (ZYPREXA) 10 mg tablet Take 2 tablets by mouth daily at bedtime. - lamoTRIgine (LAMICTAL) 200 mg tablet Take 300 mg by mouth once daily. - clonazePAM (KLONOPIN) 1 mg tablet Take 1 mg by mouth at bedtime as needed. - zolpidem (AMBIEN) 10 mg tab Take by mouth at bedtime as needed. - venlafaxine XR (EFFEXOR XR) 150 mg tr24 Take by mouth once daily. - DULoxetine (CYMBALTA) 60 mg capsule Take 60 mg by mouth twice daily. - FERROUS SULFATE (HIGH POTENCY IRON ORAL) Take 1 tablet by mouth once daily. - cyanocobalamin (VITAMIN B-12) 500 mcg tablet Take 2 tablets by mouth once daily. - CARBATROL 300 MG 12 HR CAP Take two capsules two(2) times daily. Facility-Administered Medications as of 06/01/2024 - propofol injection (DIPRIVAN) Normal [facility] CNTHERAPYon 05-26-2024 CNTHERAPY OT/PT/Speech Visit ( LDPT) JIMI SOTO ([id number]) 1965 M Date Time Provider Department 05/26/24 1:30 PM KAVON MORENO URSULA Date Time Provider Department Center 05/26/2024 1:30 PM [id number], PATRICK URSULA [facility] Reason for Visit: Physical Therapy [503] Primary Visit Diagnosis:Cognitive decline [R41.89] Other Visit Diagnosis:Balance problems [R26.89] Allergies As of Date: 05/26/2024 Noted Allergy Reaction BIAXIN (CLARITHROMYCIN) 12/05/2005 5 - Intolerance DEPAKOTE (DIVALPROEX SODIUM) 12/05/2005 5 - Intolerance IBUPROFEN 12/05/2005 5 - Intolerance Comments: advil LATEX 06/14/2014 16 - Unknown PROZAC (FLUOXETINE HCL) 12/05/2005 5 - Intolerance SPECTAZOLE (ECONAZOLE NITRATE) 12/05/2005 5 - Intolerance WELLBUTRIN (BUPROPION HCL) 12/05/2005 5 - Intolerance Comments: [employer] Date Reviewed: 05/19/2024 Reviewed by: Alpesh Hill MD - Fully Assessed Prescriptions as of 05/26/2024 - cholecalciferol, Vitamin D3, (VITAMIN D3) 1,250 mcg (50,000 unit) cap capsule Take 1 capsule by mouth one time a week. - fenofibrate nanocrystallized (TRICOR) 48 mg tablet Take 1 tablet by mouth once daily. - omeprazole (PRILOSEC) 20 mg capsule Take 1 capsule by mouth daily before breakfast. 1/2 hr before meal. - atorvastatin (LIPITOR) 80 mg tablet Take 1 tablet by mouth once daily. - docusate sodium (COLACE) 100 mg capsule Take 100 mg by mouth twice daily. - OLANZapine (ZYPREXA) 10 mg tablet Take 2 tablets by mouth daily at bedtime. - lamoTRIgine (LAMICTAL) 200 mg tablet Take 300 mg by mouth once daily. - clonazePAM (KLONOPIN) 1 mg tablet Take 1 mg by mouth at bedtime as needed. - zolpidem (AMBIEN) 10 mg tab Take by mouth at bedtime as needed. - venlafaxine XR (EFFEXOR XR) 150 mg tr24 Take by mouth once daily. - DULoxetine (CYMBALTA) 60 mg capsule Take 60 mg by mouth twice daily. - FERROUS SULFATE (HIGH POTENCY IRON ORAL) Take 1 tablet by mouth once daily. - cyanocobalamin (VITAMIN B-12) 500 mcg tablet Take 2 tablets by mouth once daily. - CARBATROL 300 MG 12 HR CAP Take two capsules two(2) times daily. Facility-Administered Medications as of 05/26/2024 - propofol injection (DIPRIVAN) Director Critical Care: Therapy (PT/OT/Speech/Resp) ID: [id number] 05/26/2024 2:15 PM Author: KAVON MORENO Signed by KAVON MORENO PTA on 05/26/2024 at 2:15 PM Document text: Program_ID:[id number] Access Code: [email or web address] URL: [email or web address] Date: 05-26-2024 Prepared By: Raya Moreno Program Notes Exercises - Supine Hip Abduction - 1-2 x daily - 5 x weekly - 2-3 sets - 10 reps - Standing Heel Raise - 1-2 x daily - 5 x weekly - 2-3 sets - 10 reps - Tandem Stance with Support - 1-2 x daily - 5 x weekly - 2-3 sets - 10 reps Normal [facility] THERAPY NTon 05-26-2024 THERAPY NT HNO ID: [id number] Author: KAVON MORENO PTA Service: ? Author Type: Guest Services Representative Type: Therapy (PT/OT/Speech/Resp) Filed: 05/26/2024 14:15 Note Text: Program_ID:[id number] Access Code: [email or web address] URL: [email or web address] Date: 05-26-2024 Prepared By: Raya Moreno Program Notes Exercises - Supine Hip Abduction - 1-2 x daily - 5 x weekly - 2-3 sets - 10 reps - Standing Heel Raise - 1-2 x daily - 5 x weekly - 2-3 sets - 10 reps - Tandem Stance with Support - 1-2 x daily - 5 x weekly - 2-3 sets - 10 reps Normal [facility] MR/BMS.BPon 05-24-2024 MR/BMS.BP [facility] [address], [address] [place] [address] OFFICE VISIT Date of Service: 05/24/24 MR#: [id number] Acct: [id number] Name: JIMI SOTO Rep #: [id number] : 1965 Provider: Dr. Martin Mehta se, DO Age/Sex: 58/M Location: [facility] [place]BP Status: Signed Intake Vital Signs 12/17/23 11:42 05/24/24 10:37 Height 6 ft 2 in 6 ft 2 in Weight: 247 lb BMI 31.7 BP 146/88 H Blood Pressure Location Lt brachial Position Sitting Respiration 16 Pulse 77 Pulse Source Monitor BP Intake Visit Reasons: Bipolar Accompanied by: Sister Allergies bupropion (From Wellbutrin) Allergy (Verified 12/17/23 11:42) Other clarithromycin (From Biaxin) Allergy (Verified 12/17/23 11:42) Other divalproex sodium (From Depakote) Allergy (Verified 12/17/23 11:42) Other econazole (From Spectazole) Allergy (Verified 12/17/23 11:42) Other fluoxetine (From Prozac) Allergy (Verified 12/17/23 11:42) Other latex Adverse Reaction (Mild, Verified 05/24/24 10:49) Rash ibuprofen Adverse Reaction (Verified 12/17/23 11:42) Nausea/Vom/Diarrhea Medications ???Medication ???Instructions ???Recorded ???Confirmed ???Type fenofibrate nanocrystallized 48 mg 48 mg PO DAILY 05/08/16 05/24/24 History tablet omeprazole 20 mg capsule,delayed 20 mg PO DAILY 05/08/16 05/24/24 History release atorvastatin 80 mg tablet 80 mg PO QHS 12/28/21 05/24/24 History docusate sodium 100 mg capsule 200 mg PO BID 12/28/21 05/24/24 History ferrous sulfate 27 mg iron tablet 27 mg PO DAILY 12/28/21 05/24/24 History vitamin B12 500 mcg-folic acid 400 1 tab PO DAILY 12/28/21 05/24/24 History mcg tablet cholecalciferol (vitamin D3) 25 25 mcg PO .weekly 01/16/22 05/24/24 History mcg (1,000 unit) capsule carbamazepine 300 mg 600 mg (2 x 300 mg) PO BID #60 caps 05/24/24 05/24/24 Rx capsule,extended release [id number] clonazepam 1 mg tablet 1 mg PO QHS 30 days #30 tabs 05/24/24 05/24/24 Rx duloxetine 60 mg capsule,delayed 60 mg PO BID #60 caps 05/24/24 05/24/24 Rx release fenofibrate 40 mg tablet 40 mg PO QDAY 05/24/24 05/24/24 History lamotrigine 150 mg tablet 300 mg (2 x 150 mg) PO QHS 30 days 05/24/24 05/24/24 Rx #60 tabs olanzapine 7.5 mg tablet 7.5 mg PO QHS #30 tabs 05/24/24 05/24/24 Rx venlafaxine 150 mg 150 mg PO DAILY #30 caps 05/24/24 05/24/24 Rx capsule,extended release 24 hr zolpidem 10 mg tablet (Ambien) 10 mg PO QHS #30 tabs 05/24/24 05/24/24 Rx PFSH Medical History Cognitive communication deficit Wears glasses Arthritis Low iron Restless legs Back pain Injury of head and neck Syncope Dietary restriction Oral hygiene poor History of hiatal hernia Bleeding hemorrhoid History of IBS Gastric reflux Non-smoker Shortness of breath on exertion Chronic cough Leg cramps History of pain when walking History of edema Decay, teeth High cholesterol HTN (hypertension) Bipolar 1 disorder Chronic kidney disease Surgical History S/P laparoscopic cholecystectomy ( 12/2021) History of bone marrow biopsy Hx of colonoscopy Hx of esophagogastroduodenoscopy History of excision of lesion S/P appendectomy Family History Father Cancer prostate cancer, skin cancer Hypertension Mother Diabetes Sister Kidney disease Seizures Social History Smoking Status: Never smoker alcohol intake: never substance use type: does not use HPI History of Present Illness History provided by: patient Chief complaint: bipolar HPI: Jimi Soto is a 58 year old male who presents today for new patient evaluation. Presents today with his sister, Antonia. Previously followed with a psychiatrist for nearly 30 years for bipolar. Patient reports that he has been doing largely well on current medications. Admits to finding brother who was of a gun shot wound when he was 14 and patient was 19. States that he had a mental breakdown afterwards. Reports to being hysterical and had a significant worsening of mood symptoms following this. Has had some symptoms of cristofer in the past, which included some symptoms of cristofer. Has periods where feeling highs. Had associated symptoms of lack of sleep. Does have a history of receiving ECT and catatonia. Became catatonic following Wellbutrin. Reports that he has been largely doing good. Per sister, patient has always been well managed with regards to mental health. Father did pass away about 1.5 years ago. Per sister, patient has been declining over the past year or so. Patient has not been showering as frequently. Had olanzapine reduced in the fall without any signifi (more content not included)... Normal [facility] [id number] 05-21-2024 [id number] [facility] ID: [id number] Author: CORRINA JEFF PT Service: ? Author Type: Physical Therapist Type: [id number] Filed: 05/21/2024 15:54 Note Text: [facility] Rehabilitation [facility] Sports Therapy Physical Therapy Plan of Care Certification Patient Name: Jimi Soto : 1965 [facility] #: [id number] Date: 05/18/2024 To: Kel Joya Jr., MD From Therapist: Corrina Jeff PT RE: Patient Certification/ Recertification Your review, approval and electronic signature are required in order to comply with Payor: MEDICARE / Plan: MEDICARE A AND B / Product Type: Medicare / regulations. The identified Physical Therapy PLAN OF CARE for the patient is as follows: R41.89 Cognitive decline R26.89 Balance problems PLAN OF CARE: Assessment: Jimi Soto presents with diagnosis of balance problems with cognitive decline that interferes with walking in the house, physical activities (not living in house- but apt) . The patient presents with impairments in balance, flexibility, gait, independence in exercise, and overall function. PROMIS? (Patient-Reported Outcomes Measurement Information System) scores were reviewed and identified as a rehabilitation concern. Prognosis for therapy is Good due to: good overall health status, current objective clinical presentation . The patient will benefit from skilled therapy services to meet the goals established for this plan of care as noted below. Classification Diagnosis Grouping: CVA Goals for Episode of Care: established 05/18/24 Patient reported outcome of pain Interference will decrease T -score by a minimum of 5 points. Patient reported outcome of physical function, self-efficacy, and mobility will increase T-score by a minimum 5 points. [place] in home exercise program. Patient will increase flexibility of Bilat hams and lower extremity's as needed to WNL to improve ability to maintain proper posture and improve mechanics. Patient will be able to Perform aTimed Up and Go to 14 sec seconds to demonstrate decreased risk of falling. Patient will improve 10MWT to 1.2m/s with no assistive device to demonstrate improvement in functional community ambulation. Patient will improve 5 time sit to stand to demonstrate improvement in functional lower extremity strength. Reciprocal stair negotiation. Patient Goals: to be able to control the episodes of unsteadiness. (and loss of balances) Time Frame for Goals and Treatment : 07/17/24 (or less) Planned Interventions, Frequency, and Duration: Current Frequency: 1x/week Duration: Two months Total Number of Visits Planned: 9 Planned Treatment Interventions: Neuromuscular re-education (34243), Therapeutic exercise (58460), Therapeutic activities (28865) PLAN FOR NEXT VISIT: progress static and dynamic balance ex Patient demonstrates good understanding of plan of care and treatment. The above goals and plan of care were discussed and agreed upon by patient/family. For further details regarding this patient refer to the Physical Therapy electronically documented visit dated 05/18/2024. Provider Attestation I have reviewed the treatment plan for Jimi Soto, CC# [id number] for the period of 05/18/24 -- 08/16/24, established on 05/18/2024. Signature certifies the need for therapy services. [facility] ([id number]) 1965 M Date Time Provider Department 05/20/24 [facility] your visit today, we recorded the following information about you: Alpesh Hill MD 05/20/2024 1:22 PM Signed Stable CKD stage IIIa. Recommend low sodium diet <2,000 mg per day, avoidance of NSAIDs, and increased water intake. F/u with nephrology as recommended. Vitamin D level severely low. Recommend 50,000 units of vitamin D weekly x 12 weeks and recheck in 3 months. Jaimee Prater LPN 05/20/2024 1:58 PM Signed TC to pt. LM to call office, ask for triage nurse to get results. DALIA Acosta Kathryn, MA 05/24/2024 9:33 AM Signed Message left for pt to call back for results. Sangeeta Florentino MA, RN 05/24/2024 9:58 AM Signed Patient calls and notified of results and providers instructions. Questions all answered to patient satisfaction and patient verbalizes understanding. Sangeeta Carrion RN Allergies As of Date: 05/20/2024 Noted Allergy Reaction BIAXIN (CLARITHROMYCIN) 12/05/2005 5 - Intolerance DEPAKOTE (DIVALPROEX SODIUM) 12/05/2005 5 - Intolerance IBUPROFEN 12/05/2005 5 - Intolerance Comments: advil LATEX 06/14/2014 16 - Unknown PROZAC (FLUOXETINE HCL) 12/05/2005 5 - Intolerance SPECTAZOLE (ECONAZOLE NITRATE) 12/05/2005 5 - Intolerance WELLBUTRIN (BUPROPION HCL) 12/05/2005 5 - Intolerance Comments: CAUSES [place] Date Reviewed: 05/19/2024 Reviewed by: Alpesh Hill MD - Fully Assessed Reason for Visit: Results [95] Primary Visit Diagnosis:Vitamin D deficiency [E55.9] Order(s):cholecalciferol, Vitamin D3, (VITAMIN D3) 1,250 mcg (50,000 unit) cap capsuleTake 1 capsule by mouth one time a week.Disp: 12 capsuleRfl: 0 VITAMIN D 25 HYDROXY [SQVITD] Order #: [id number] FUTURE Prescriptions as of 05/24/2024 - cholecalciferol, Vitamin D3, (VITAMIN D3) 1,250 mcg (50,000 unit) cap capsule Take 1 capsule by mouth one time a week. - fenofibrate nanocrystallized (TRICOR) 48 mg tablet Take 1 tablet by mouth once daily. - omeprazole (PRILOSEC) 20 mg capsule Take 1 capsule by mouth daily before breakfast. 1/2 hr before meal. - atorvastatin (LIPITOR) 80 mg tablet Take 1 tablet by mouth once daily. - docusate sodium (COLACE) 100 mg capsule Take 100 mg by mouth twice daily. - OLANZapine (ZYPREXA) 10 mg tablet Take 2 tablets by mouth daily at bedtime. - lamoTRIgine (LAMICTAL) 200 mg tablet Take 300 mg by mouth once daily. - clonazePAM (KLONOPIN) 1 mg tablet Take 1 mg by mouth at bedtime as needed. - zolpidem (AMBIEN) 10 mg tab Take by mouth at bedtime as needed. - venlafaxine XR (EFFEXOR XR) 150 mg tr24 Take by mouth once daily. - DULoxetine (CYMBALTA) 60 mg capsule Take 60 mg by mouth twice daily. - FERROUS SULFATE (HIGH POTENCY IRON ORAL) Take 1 tablet by mouth once daily. - cyanocobalamin (VITAMIN B-12) 500 mcg tablet Take 2 tablets by mouth once daily. - CARBATROL 300 MG 12 HR CAP Take two capsules two(2) times daily. Facility-Administered Medications as of 05/24/2024 - propofol injection (DIPRIVAN) Problem List As Of Date 05/20/2024 Noted Resolved EPIDERMAL CYST--INFLAMED///SEBACEOUS CYST [L72.*07/29/2007 ACNE: Grade III to IV Inflammatory Nodulocystic*07/29/2007 SCAR AND FIBROSIS OF SKIN [L90.5] 07/29/2007 OPEN WOUND SITE NOS [T14.8XXA] 12/22/2007 Contact Dermatitis and Other Eczema, due to Uns*10/14/2009 Cystic Acne Scars [L90.5] 12/12/2010 Actinic Keratoses (Premalignant AK's) [L57.0] 02/24/2013 Neoplasm of uncertain behavior of skin [D48.5] 02/24/2013 Inflamed seborrheic keratosis [L82.0] 02/24/2013 Inverted follicular keratosis [L11.0] 02/24/2013 Melanocytic nevi of trunk [D22.5] 02/24/2013 Other seborrheic keratosis [L82.1] 02/24/2013 Actinic skin damage [L57.8] 02/24/2013 Cutaneous skin tags [L91.8] 02/24/2013 Sebaceous hyperplasia of face [L73.8] 04/09/2013 Milial cyst [L72.0] 04/09/2013 Postinflammatory skin changes [R23.8] 04/09/2013 Bipolar disorder (HCC) [F31.9] 06/09/2014 Anemia [D64.9] 06/09/2014 Hyperlipidemia [E78.5] Obesity, Class I, BMI 30-34.9 [E66.811] 07/09/2018 Gastroesophageal reflux disease [K21.9] 07/09/2018 CKD (chronic kidney disease) stage 3, GFR 30-59*07/09/2018 Chronic kidney disease (CKD), stage III (modera* Allergy to environmental factors [Z91.09] Essential hypertension [I10] 04/16/2021 OA (osteoarthritis) of knee [M17.9] 10/15/2022 Cognitive decline [R41.89] 05/18/2024 Balance problems [R26.89] 05/18/2024 Cerebral hemorrhage (HCC) [I61.9] 05/18/2024 Hereditary cerebral amyloid angiopathy (HCC) (*05/18/2024 Type 2 diabetes mellitus without complication, *05/19/2024 05/19/2024 Vitamin D deficiency [E55.9] Prescriptions ordered this encounter Disp Refills Start End CHOLECALCIFEROL (VITAMIN D3) 1,250 M* 12 c* 0 (more content not included)... Normal [facility] Comprehensive metabolic 2000 panelon 05-20-2024 Albumin [Mass/Vol] 4.3 g/dL 3.9 - 4.9 g/dL [facility] ALP [Catalytic activity/Vol] 76 U/L 38 - 113 U/L [facility] ALT [Catalytic activity/Vol] 14 U/L 10 - 54 U/L [facility] Anion gap [Moles/Vol] 11 mmol/L 8 - 15 mmol/L [facility] AST [Catalytic activity/Vol] 18 U/L 14 - 40 U/L [facility] Bilirubin [Mass/Vol] 0.2 mg/dL 0.2 - 1.3 mg/dL [facility] Calcium [Mass/Vol] 9.4 mg/dL 8.5 - 10. 2 mg/dL [facility] Chloride [Moles/Vol] 103 mmol/L 98 - 107 mmol/L [facility] CO2 [Moles/Vol] 27 mmol/L 22 - 30 mmol/L [facility] Creatinine [Mass/Vol] 1.46 mg/dL High 0.73 - 1.22 mg/dL [facility] GFR/1.73 sq M.predicted among non-blacks MDRD (S/P/Bld) [Vol rate/Area] 55 mL/min/{1.73_m2} Low - PINF [facility] Comment on above: Estimated Glomerular Filtration Rate (eGFR) is calculated using the 2020 CKD-EPI creatinine equation. This equation utilizes serum creatinine, sex, and age as parameters. The creatinine assay has traceable calibration to isotope dilution-mass spectrometry. Refer to KDIGO guidelines for clinical interpretation. In patients with unstable renal function, e.g. those with acute kidney injury, the eGFR may not accurately reflect actual GFR. Glucose [Mass/Vol] 99 mg/dL 74 - 99 mg/dL [facility] Comment on above: The [place] Diab[employer] Association (ADA) provides guidance for cutoff values for fasting glucose and random glucose. The ADA defines fasting as no caloric intake for at least 8 hours. Fasting plasma glucose results between 100 to 125 mg/dL indicate increased risk for diabetes (prediabetes). Fasting plasma glucose results greater than or equal to 126 mg/dL meet the criteria for diagnosis of diabetes. In the absence of unequivocal hyperglycemia, results should be confirmed by repeat testing. In a patient with classic symptoms of hyperglycemia or hyperglycemic crisis, random plasma glucose results greater than or equal to 200 mg/dL meet the criteria for diagnosis of diabetes. Reference: Standards of Medical Care in Diabetes 2016, [place] [employer]. Diabetes Care. 2016.39(Suppl 1). Interpretation and review of laboratory results Abnormal [facility] Potassium [Moles/Vol] 4.5 mmol/L 3.7 - 5.1 mmol/L [facility] Protein [Mass/Vol] 6.6 g/dL 6.3 - 8.0 g/dL [facility] Sodium [Moles/Vol] 141 mmol/L 136 - 144 mmol/L [facility] Urea nitrogen [Mass/Vol] 16 mg/dL 9 - 24 mg/dL [facility] 25(OH)D3 SerPl-ncon 2024 25-hydroxyvitamin D3 [Mass/Vol] 15.6 ng/mL Low 31.0-80.0 [facility] Comment on above: Order Comment: Speci men Type: BLOOD SPECIMENOrdering Facility: [facility] Address: [address] [place] [address] Result Comment: Clas sification of 25 [place] Vitamin D status: Deficiency/Insufficiency: < or = 30 ng/ml. Sufficiency/Optimal Levels: 31-80 ng/mL Toxicity: > 100 ng/mL. Test performed by chemiluminescent immunoassay. Performed By: #### 1 989-3 ####[facility] LABCLIA [id number] [place] [address] [place] 25-hydroxyvitamin D3 [Mass/V ol]on 05-19-2024 Interpretation and review of laboratory results Abnormal [facility] The reference range interval was based on an analysis of samples from healthy adults and may not pertain to children from 0-18 years old. [facility] CNOVon 05-19-2024 CNOV Office Visit (FAMPWS ) JIMI SOTO ([id number]) 1965 M Date Time Provider Department 05/19/24 1:00 PM ALPESH HILL During your visit today, we recorded the following information about you: Pulse Respiration Blood pressure Weight 77/minute 16/minute 116/76 112.6 kg Alpesh Hill MD 05/25/2024 12:48 PM Signed Chief Complaint Patient presents with: Follow Up: Routine annual check up HPI Jimi Soto is a 58 year old male who presents here today for Above Complaints. Here today by himself. Patient complaining today of pain at the tip of his penis and right testicle in the last couple of days. Denies dysuria, hematuria, urinary frequency, urgency, penile discharge, nausea, vomiting, abdominal pain, flank pain. Patient is not sexually active. Notes history of mumps and right testicle is larger than the left. No pain at the time of this visit. Patient referred to neurology at last OV with Rose Marie for lightheadedness, slurred speech, and vision changes. She also obtained MRI/MRA of head and neck which showed: IMPRESSION: No acute intracranial pathology. Innumerable chronic microhemorrhages, of uncertain etiology. No stenosis or occlusion in the head or neck. Evaluated on 04/[address] Joya who was concerned for amyloid angiopathy and was referred to [facility] as well as speech therapy and PT. Will f/u in [address] Joya. Has had one session of PT and ST so far. OV with CV in July with Dr. Villavicencio. Today, he states that he has had worsening unsteady gait without falls. Not using cane or walker for ambulation and does not want order today. Has HEP through PT which he has not started yet. Other symptoms are stable. Denies severe headache, loss of vision, facial droop, numbness/tingling/weakness. Following up yearly with Dr. Arthur for CKD stage IIIa with last OV in December. CKD thought to be 2/2 lithium use. No changes to regimen. Labs repeated and reviewed. Patient does not take NSAIDs and does follow low sodium diet. HTN: Mr. Soto indicates that he is feeling well and denies any symptoms referable to elevated blood pressure. Specifically denies headache, chest pain, palpitations, dyspnea, and peripheral edema. Patient denies any side effects of his medication(s) and is compliant with their regimen. He does not check BP's generally. Jimi gets minimal exercise. He watches his diet for sodium, low fat and low cholesterol most of the time. Last 3 Encounter BP Readings: Date: BP: 05/19/2024 116/76 04/30/2024 145/89 02/23/2024 108/68 Patient switching psychiatry to Dr. Daniel next week for his history of bipolar disorder. Last OV with Dr. Stahl was about 2 months ago. States that they did lower his dosage of Olanzapine to 10 mg qhs in case it was causing his neurological/parkinsonism symptoms. No improvement in neurological symptoms. Depression symptoms controlled on current regimen without recent manic episodes. Denies SI/HI. GERD controlled on prilosec on daily basis without side effects. Past medical history, appointments, medications, allergies reviewed. Previous Medical History PAST MEDICAL HISTORY Diagnosis Date Allergy to environmental factors Dr. Fernandes Anemia Bipolar 1 disorder (HCC) Dr. Stahl Chronic kidney disease (CKD), stage III (moderate) ([facility]) Dr. Arthur Essential hypertension Family history of prostate cancer in father GERD (gastroesophageal reflux disease) Hx of gallstones s/p cholecystectomy Hyperlipidemia Internal hemorrhoids Irritable bowel syndrome Kidney dysfunction LBBB (left bundle branch block) incomplete. Negative echo in 2018. OA (osteoarthritis) of knee Obesity (BMI 30.0-34.9) Previous Surgical History PAST SURGICAL HISTORY Procedure Laterality Date APPENDECTOMY remotely COLONOSCOPY FLX DX W/COLLJ SPEC WHEN PFRMD 06/15/2014 Colonoscopy COLONOSCOPY SCREENING Bilateral 08/22/2022 ESOPHAGOGASTRODUODENOSCOPY TRANSORAL DIAGNOSTIC 06/15/2014 EGD INCISION AND DRAINAGE ABSCESS SIMPLE/SINGLE both sides of face. KNEE SURGERY HX arthroscopic surgery for cartilage removal. unsure which knee L'SCOPE CHOLECYSTECTOMY 12/2021 Family History FAMILY HISTORY Problem Relation Age of Onset Cancer Father prostate, skin cancer Hypertension Father Coronary Artery Disease Mother stroke and mi Diabetes Mother Heart Sister [place] age 50s Mental illness Brother suicide Mental illness Brother Heart Maternal Grandmother Diabetes Maternal Grandmother Breast Cancer Paternal Grandmother Mental illness Brother hunting accident Patient Allergies ALLERGIES Allergen Reactions Biaxin [Clarithromy* Intolerance Depakote [Divalproe* Intolerance Ibuprofen Intolerance advil Latex Unknown Prozac [Fluoxetine * Intolerance Spectazole [Econazo* Intolerance Wellbutrin [Bupropi* In (more content not included)... Normal [facility] metabolic 2000 panelon 05-19-2024 Albumin [Mass/Vol] 4.3 g/dL Normal 3.9-4.9 [facility] Comment on above: Order Comment: Speci men Type: BLOOD SPECIMENOrdering Facility: [facility] Address: [address] [place] [address] Performed By: #### 2 4323-8 ####[facility] LABCLIA [id number] [place] [address] [place] ALP [Catalytic activity/Vol] 76 U/L Normal 38-113 [facility] Comment on above: Order Comment: Speci men Type: BLOOD SPECIMENOrdering Facility: [facility] Address: [address] [place] [address] Performed By: #### 2 4323-8 ####[facility] LABCLIA [id number] [place] [address] [place] ALT [Catalytic activity/Vol] 14 U/L Normal 10-54 [facility] Comment on above: Order Comment: Speci men Type: BLOOD SPECIMENOrdering Facility: [facility] Address: [address] [place] [address] Performed By: #### 2 4323-8 ####[facility] LABCLIA [id number] [place] [address] [place] Anion gap [Moles/Vol] 11 mmol/L Normal 8-15 [facility] Comment on above: Order Comment: Speci men Type: BLOOD SPECIMENOrdering Facility: [facility] Address: [address] [place] [address] Performed By: #### 2 4323-8 ####[facility] LABCLIA [id number] [place] [address] [place] AST [Catalytic activity/Vol] 18 U/L Normal 14-40 [facility] Comment on above: Order Comment: Speci men Type: BLOOD SPECIMENOrdering Facility: [facility] Address: [address] [place] [address] Performed By: #### 2 4323-8 ####[facility] LABCLIA [id number] [place] [address] [place] Bilirubin [Mass/Vol] 0.2 mg/dL Normal 0.2-1.3 [facility] Comment on above: Order Comment: Speci men Type: BLOOD SPECIMENOrdering Facility: [facility] Address: [address] [place] [address] Performed By: #### 2 4323-8 ####[facility] LABCLIA [id number] [place] [address] [place] Calcium [Mass/Vol] 9.4 mg/dL Normal 8.5-10.2 [facility] Comment on above: Order Comment: Speci men Type: BLOOD SPECIMENOrdering Facility: [facility] Address: [address] [place] [address] Performed By: #### 2 4323-8 ####[facility] LABCLIA [id number] [place] [address] [place] Chloride [Moles/Vol] 103 mmol/L Normal 98-107 [facility] Comment on above: Order Comment: Speci men Type: BLOOD SPECIMENOrdering Facility: [facility] Address: [address] [place] [address] Performed By: #### 2 4323-8 ####[facility] LABCLIA [id number] [place] [address] [place] CO2 [Moles/Vol] 27 mmol/L Normal 22-30 [facility] Comment on above: Order Comment: Speci men Type: BLOOD SPECIMENOrdering Facility: [facility] Address: [address] [place] [address] Performed By: #### 2 4323-8 ####[facility] LABCLIA [id number] [place] [address] [place] Creatinine [Mass/Vol] 1.46 mg/dL High 0.73-1.22 [facility] Comment on above: Order Comment: Winter staton Type: BLOOD SPECIMENOrdering Facility: [facility] Address: [address] [place] [address] Performed By: #### 2 4323-8 ####[facility] LABCLIA [id number] [place] [address] [place] Creatinine and Glomerular filtration rate.predicted panel (S/P/Bld) 55 mL/min/1.73m??? Low >=60 [facility] Comment on above: Order Comment: Winter staton Type: BLOOD SPECIMENOrdering Facility: [facility] Address: [address] [place] [address] Result Comment: Arnie mated Glomerular Filtration Rate (eGFR) is calculated using the 2020 CKD-EPI creatinine equation. This equation utilizes serum creatinine, sex, and age as parameters. The creatinine assay has traceable calibration to isotope dilution-mass spectrometry. Refer to KDIGO guidelines for clinical interpretation. In patients with unstable renal function, e.g. those with acute kidney injury, the eGFR may not accurately reflect actual GFR. Performed By: #### 2 4323-8 ####[facility] LABCLIA [id number] [place] [address] [place] Glucose [Mass/Vol] 99 mg/dL Normal 74-99 [facility] Comment on above: Order Comment: Winter staton Type: BLOOD SPECIMENOrdering Facility: [facility] Address: [address] [place] [address] Result Comment: The [place] Diabetes Association (ADA) provides guidance for cutoff values for fasting glucose and random glucose. The ADA defines fasting as no caloric intake for at least 8 hours. Fasting plasma glucose results between 100 to 125 mg/dL indicate increased risk for diabetes (prediabetes). Fasting plasma glucose results greater than or equal to 126 mg/dL meet the criteria for diagnosis of diabetes. In the absence of unequivocal hyperglycemia, results should be confirmed by repeat testing. In a patient with classic symptoms of hyperglycemia or hyperglycemic crisis, random plasma glucose results greater than or equal to 200 mg/dL meet the criteria for diagnosis of diabetes. Reference: Standards of Medical Care in Diabetes 2016, [place] [employer]. Diabetes Care. 2016.39(Suppl 1). Performed By: #### 2 4323-8 ####[facility] LABCLIA [id number] [place] [address] [place] Potassium [Moles/Vol] 4.5 mmol/L Normal 3.7-5.1 [facility] Comment on above: Order Comment: Speci men Type: BLOOD SPECIMENOrdering Facility: [facility] Address: [address] [place] [address] Performed By: #### 2 4323-8 ####[facility] LABCLIA [id number] [place] [address] [place] Protein [Mass/Vol] 6.6 g/dL Normal 6.3-8.0 [facility] Comment on above: Order Comment: Speci men Type: BLOOD SPECIMENOrdering Facility: [facility] Address: [address] [place] [address] Performed By: #### 2 4323-8 ####[facility] LABCLIA [id number] [place] [address] [place] Sodium [Moles/Vol] 141 mmol/L Normal 136-144 [facility] Comment on above: Order Comment: Speci men Type: BLOOD SPECIMENOrdering Facility: [facility] Address: [address] [place] [address] Performed By: #### 2 4323-8 ####[facility] LABCLIA [id number] [place] [id number] [place] Urea nitrogen [Mass/Vol] 16 mg/dL Normal 9-24 [facility] Comment on above: Order Comment: Speci men Type: BLOOD SPECIMENOrdering Facility: [facility] Address: [address] [place] [address] Performed By: #### 2 4323-8 ####[facility] LABCLIA [id number] [address] [place] [address] [place] No Panel Informationon 05-19 [facility] UA DIP, URINE (POC)on 2024 BILIRUBIN UA (POCT) Negative Negative [facility] CLARITY UA (POCT) Clear [facility] COLOR UA (POCT) Light yellow [facility] GLUCOSE UA (POCT) Negative Negative mg/dL [facility] Hemoglobin Ql (U) Negative Negative [facility] KETONE UA (POCT) Negative Negative mg/dL [facility] LEUKOCYTES UA (POCT) Negative Negative [facility] NITRITE UA (POCT) Negative Negative [facility] PH UA (POCT) 7.0 4.5 - 8.0 [facility] Protein Ql (U) Negative Negative mg/dL [facility] SPECIFIC GRAVITY UA (POCT) 1.010 1.005 - 1.030 [facility] UROBILINOGEN UA (POCT) 0.2 Normal E.U./dL [facility] Location:[address], [address] [place] [address] POINT OF CARE VITAMIN D 25 HYDROXYon 05-19 25-hydroxyvitamin D3 [Mass/Vol] 15.6 ng/mL Low 31.0 - 80.0 ng/mL [facility] Comment on above: Classification of 25 [place] Vitamin D status: Deficiency/Insufficiency: < or = 30 ng/ml. Sufficiency/Optimal Levels: 31-80 ng/mL Toxicity: > 100 ng/mL. Test performed by chemiluminescent immunoassay. [id number] 05-18-2024 [id number] HNO ID: [id number] Author: LENORA MORAN CCC-SLP Service: ? Author Type: Speech Language Pathologist Type: [id number] Filed: 05/18/2024 16:46 Note Text: [facility] Speech Therapy Plan of Care Certification Patient Name: Jimi Soto : 1965 CC #: [id number] Date: 05/18/2024 To: Kel Joya Jr., MD From Therapist: STEPHANIE Ramirez RE: Patient Certification/ Recertification Your review, approval and electronic signature are required in order to comply with Payor: MEDICARE / Plan: MEDICARE A AND B / Product Type: Medicare / regulations. 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 -All goals to target the patient's overall ability to facilitate functional communication of ADL medical / social needs. COGNITIVE GOALS -Improve categorical naming tasks at a concrete and abstract level with 100% accuracy given minimal assist. -Improve money and time management tasks with 100% accuracy given minimal assist. -Complete visual reasoning/organization tasks with 100% accuracy given moderate , minimal assist. -Improve short term/prospective memory to 100% accuracy with use of compensatory strategies with moderate , minimal assist/cues. -All goals to target the patient's overall ability to facilitate functional cognitive linguistic skills. Planned Interventions, Frequency, and Duration: Planned Treatment Interventions: Patient / Caregiver Education/ Training, Cognitive-Linguistic Training (26903, 79680, 06679), Expressive Language Training (56808, 30334) Current Frequency: 1x/week Duration: 8 weeks PLAN FOR NEXT VISIT: Written education for memory and attention strategies and support activities Patient demonstrates good understanding of plan of care and treatment. The above goals and plan of care were discussed and agreed upon by patient/family. For further details regarding this patient refer to the Speech Therapy electronically documented visit dated 05/18/2024. Provider Attestation I have reviewed the treatment plan for Jimi Soto, CCF# [id number] for the period of 05/18/24 -- 06/17/24, established on 05/18/2024. Signature certifies the need for therapy services. Normal [facility] CNTHERAPYon 05-18-2024 CNTHERAPY OT/PT/Speech Visit ( LDSP) JIMI SOTO ([id number]) 1965 M Date Time Provider Department 05/18/24 2:30 PM LENORA MORAN Date Time Provider Department Center 05/18/2024 2:30 PM [id number] MORAN [facility] Reason for Visit: Speech Evaluation [2347] Primary Visit Diagnosis:Cognitive decline [R41.89] Other Visit Diagnoses:Cerebral hemorrhage (HCC) [I61.9] Hereditary cerebral amyloid angiopathy (HCC) (HCC) [E85.4, I68.0] Cerebral amyloid angiopathy (CODE) [I68.0] Allergies As of Date: 05/18/2024 Noted Allergy Reaction BIAXIN (CLARITHROMYCIN) 12/05/2005 5 - Intolerance DEPAKOTE (DIVALPROEX SODIUM) 12/05/2005 5 - Intolerance IBUPROFEN 12/05/2005 5 - Intolerance Comments: advil LATEX 06/14/2014 16 - Unknown PROZAC (FLUOXETINE HCL) 12/05/2005 5 - Intolerance SPECTAZOLE (ECONAZOLE NITRATE) 12/05/2005 5 - Intolerance WELLBUTRIN (BUPROPION HCL) 12/05/2005 5 - Intolerance Comments: CAUSES [place] Date Reviewed: 04/30/2024 Reviewed by: Kel Joya Jr., MD - Fully Assessed Prescriptions as of 05/18/2024 - fenofibrate nanocrystallized (TRICOR) 48 mg tablet Take 1 tablet by mouth once daily. - omeprazole (PRILOSEC) 20 mg capsule Take 1 capsule by mouth daily before breakfast. 1/2 hr before meal. - atorvastatin (LIPITOR) 80 mg tablet Take 1 tablet by mouth once daily. - Dextromethorphan-guaiFENesi n (TUSSIN DM MAX) 10-200 mg/5 mL liqd Take 5 mL by mouth every 6 hours as needed. - albuterol HFA (VENTOLIN HFA) 90 mcg/actuation inhaler Inhale 2 Puffs as instructed every 4 hours as needed for wheezing/shortness of breath. - fluticasone (FLONASE) 50 mcg/actuation nasal spray Use 2 Sprays in each nostril once daily. Rinse mouth after use. - nystatin (NYSTOP) powder Apply 1 application to affected area three times a day. - docusate sodium (COLACE) 100 mg capsule Take 100 mg by mouth twice daily. - OLANZapine (ZYPREXA) 10 mg tablet Take 2 tablets by mouth daily at bedtime. - lamoTRIgine (LAMICTAL) 200 mg tablet Take 300 mg by mouth once daily. - clonazePAM (KLONOPIN) 1 mg tablet Take 1 mg by mouth at bedtime as needed. - zolpidem (AMBIEN) 10 mg tab Take by mouth at bedtime as needed. - venlafaxine XR (EFFEXOR XR) 150 mg tr24 Take by mouth once daily. - DULoxetine (CYMBALTA) 60 mg capsule Take 60 mg by mouth twice daily. - FERROUS SULFATE (HIGH POTENCY IRON ORAL) Take 1 tablet by mouth once daily. - cyanocobalamin (VITAMIN B-12) 500 mcg tablet Take 2 tablets by mouth once daily. - CARBATROL 300 MG 12 HR CAP Take two capsules two(2) times daily. Facility-Administered Medications as of 05/18/2024 - propofol injection (DIPRIVAN) Normal [facility] CNTHERAPY OT/PT/Speech Visit ( LDPT) JIMI SOTO ([id number]) 1965 M Date Time Provider Department 05/18/24 1:30 PM CORRINA JEFF LDPT Date Time Provider Department Center 05/18/2024 1:30 PM [id number], GABRIEL*LDPT [facility] Reason for Visit: PT Eval [747] Visit Diagnoses:Cognitive decline [R41.89] Balance problems [R26.89] Allergies As of Date: 05/18/2024 Noted Allergy Reaction BIAXIN (CLARITHROMYCIN) 12/05/2005 5 - Intolerance DEPAKOTE (DIVALPROEX SODIUM) 12/05/2005 5 - Intolerance IBUPROFEN 12/05/2005 5 - Intolerance Comments: advil LATEX 06/14/2014 16 - Unknown PROZAC (FLUOXETINE HCL) 12/05/2005 5 - Intolerance SPECTAZOLE (ECONAZOLE NITRATE) 12/05/2005 5 - Intolerance WELLBUTRIN (BUPROPION HCL) 12/05/2005 5 - Intolerance Comments: [employer] Date Reviewed: 04/30/2024 Reviewed by: Kel Joya Jr., MD - Fully Assessed Prescriptions as of 05/21/2024 - cholecalciferol, Vitamin D3, (VITAMIN D3) 1,250 mcg (50,000 unit) cap capsule Take 1 capsule by mouth one time a week. - fenofibrate nanocrystallized (TRICOR) 48 mg tablet Take 1 tablet by mouth once daily. - omeprazole (PRILOSEC) 20 mg capsule Take 1 capsule by mouth daily before breakfast. 1/2 hr before meal. - atorvastatin (LIPITOR) 80 mg tablet Take 1 tablet by mouth once daily. - docusate sodium (COLACE) 100 mg capsule Take 100 mg by mouth twice daily. - OLANZapine (ZYPREXA) 10 mg tablet Take 2 tablets by mouth daily at bedtime. - lamoTRIgine (LAMICTAL) 200 mg tablet Take 300 mg by mouth once daily. - clonazePAM (KLONOPIN) 1 mg tablet Take 1 mg by mouth at bedtime as needed. - zolpidem (AMBIEN) 10 mg tab Take by mouth at bedtime as needed. - venlafaxine XR (EFFEXOR XR) 150 mg tr24 Take by mouth once daily. - DULoxetine (CYMBALTA) 60 mg capsule Take 60 mg by mouth twice daily. - FERROUS SULFATE (HIGH POTENCY IRON ORAL) Take 1 tablet by mouth once daily. - cyanocobalamin (VITAMIN B-12) 500 mcg tablet Take 2 tablets by mouth once daily. - CARBATROL 300 MG 12 HR CAP Take two capsules two(2) times daily. Facility-Administered Medications as of 05/21/2024 - propofol injection (DIPRIVAN) Normal [facility] 04-30-2024 CNOV Office Visit (NEMOWS ) JIMI SOTO ([id number]) 1965 M Date Time Provider Department 04/30/24 1:00 PM KEL JOYA JR During your visit today, we recorded the following information about you: Pulse Blood pressure Weight 82/minute 145/89 111.7 kg Kel Joya Jr., MD 04/30/2024 2:14 PM Signed EW PATIENT (CONSULT) HISTORY AND PHYSICAL EXAM PRIMARY CARE PHYSICIAN: Alpesh Hill MD REASON FOR CONSULT: See below REFERRING PHYSICIAN: Rose Marie Johns APRN.C* CHIEF COMPLAINT: Speech, cognitive and gait changes. Consultation requested by Rose Marie Johns APRN.C* for an opinion regarding chief complaint of Patient presents with: New Patient Evaluation: Dizzy, abnormal gait, MRI/ MRA done 02/05, blurry vision, stutter, words coming out mixed up, trouble looking at words and saying them and my final recommendations will be communicated back to the requesting physician by way of shared medical record or letter via [place] mail. HISTORY OF PRESENT ILLNESS: Jimi Soto is a 58 year old male, BMI 33.49 kg/m2 with a PMH significant for that noted below. Due to CC, underwent MRI brain on 02/06/24 prior to this visit. Images reviewed and agree with doryio of rad report: No acute intracranial pathology. Innumerable chronic microhemorrhages, of uncertain etiology. No stenosis or occlusion in the head or neck. Patient lives by self. When asked why MRI completed, states had episode in which he stood up and... Dr. Hill''s TRANSPLANT COORDINATOR thought I was not right. States symptoms have been going on for a while. Patient does have a history of bipolar disorder since 1984 well managed. Slow processing, but over time cognition is declining per sister who accompanies him. Not on any blood thinners. No recurrent head traumas in recent years - long ago history of head trauma in kindergarten when fell off slide -- nothing recent. More difficulty putting words together. More difficulties expressing himself -- states language changes are all new. If went to a doctors appointment could not tell his sister what they told him at the appointment only hours later. No family history of neurologic disease except sister with epilepsy. Patient notes decline more so in the past 1 year. No issues driving. Patient reports that he remains independent. However, sister states pt not showering anymore. D/w psychiatry and they thought it might be due to Zyprexa and thus dose was reduced. No improvement in symptoms. Dizziness not described as true vertigo - at times lightheadedness, and other times staggers around. Vitamin B12 Date Value Ref Range Status 07/23/2023 880 232 - 1,245 pg/mL Final TSH Date Value Ref Range Status 07/23/2023 1.990 0.270 - 4.200 mIU/L Final Modified MOCA: Immediate recall: 08/30 Number repeat: 04/29 Sentence repeat: 05/30 Serial 7s: 04/30 Abstract: 04/29 Orientation: 10/01 Namin/3 Delayed Recall: 06/02 Cube copy: Clock draw: 06/28 REVIEW OF SYSTEMS GENERAL:No weight loss, malaise or fevers. HEENT:Negative for frequent or significant headaches, No changes in hearing or vision, no nose bleeds or other nasal problems NECK:Negative for lumps, goiter, pain and significant neck swelling RESPIRATORY: Negative for cough, wheezing or shortness of breath. CARDIOVASCULAR: Negative for chest pain, leg swelling or palpitations. GASTROINTESTINAL: Negative for abdominal discomfort, blood in stools or black stools or change in bowel habits GENITOURINARY: No history of dysuria, frequency or incontinence MUSCULOSKELETAL: Negative for joint pain or swelling, back pain or muscle pain. NEUROLOGIC:See HPI. SKIN:Negative for lesions, rash, and itching. PSYCHIATRIC: See HPI. HEMATOLOGIC/LYMPHATIC/IMMUN OLOGIC:Negative for prolonged bleeding, bruising easily or swollen nodes. ENDOCRINE: Negative for cold or heat intolerance, polyuria, polydipsia and goiter. The remainder of the ROS was reviewed and is negative. LAB/IMAGING: Reviewed and include: WBC (k/uL) Date Value 03/03/2024 3.65 (L) RBC (m/uL) Date Value 03/03/2024 3.19 (L) Hemoglobin (g/dL) Date Value 03/03/2024 11.6 (L) Hematocrit (%) Date Value 03/03/2024 34.8 (L) MCV (fL) Date Value 03/03/2024 109.1 (H) MCH (pg) Date Value 03/03/2024 36.4 (H) MCHC (g/dL) Date Value 03/03/2024 33.3 RDW-CV (%) Date Value 03/03/2024 13.0 Platelet Count (k/uL) Date Value 03/03/2024 200 MPV (fL) Date Value 03/03/2024 10.1 Glucose (mg/dL) Date Value 03/03/2024 100 (H) BUN (mg/dL) Date Value 03/03/2024 17 Creatinine (mg/dL) Date Value 03/03/2024 1.42 (H) Sodium (mmol/L) Date Value 03/03/2024 141 Potassium (mmol/L) Date Value 03/03/2024 4.4 Chloride (mmol/L) Date Value 03/03/2024 105 CO2 (mmol/L) Date Value 03/03/2024 26 Protein, Total (g/dL) Date Value 03/03/2024 6.1 (L) (more content not included)... Normal [facility] MR Brain WO contraston 02-05 * * *Final Report* * * DATE OF EXAM: Feb 06 2024 3:05PM [facility] 0294 - MRI BRAIN WO IVCON / PROCEDURE REASON: multiple diagnoses * * * * Physician Interpretation * * * * EXAMINATION: MRA BRAIN WO IVCON, MRA CAROTID WO IVCON, MRI BRAIN WO IVCON CLINICAL HISTORY: Dizziness, blurred vision, balance difficulties TECHNIQUE: Routine noncontrast MRI brain protocol including diffusion and gradient echo images. Intracranial and extracranial 3D [id number] MRA with post-processing performed at the modality and 2D multiplanar and 3D maximum intensity projections were created, reviewed and archived. MQ: MRAB_4 COMPARISON: None. RESULT: BRAIN: Acute Change: There is no evidence of restricted diffusion to suggest an acute infarct. Hemorrhage: Innumerable chronic microhemorrhages involving both cerebral and cerebellar hemispheres as well as the brainstem with relative sparing of the deep [place] nuclei. No associated T1 or T2 signal abnormality. Mass Lesion/ Mass Effect: No evidence of an intracranial mass or extra-axial fluid collection. No significant mass effect. Chronic Change: Nonspecific T2 hyperintense signal in the white matter, likely secondary to chronic small vessel ischemic disease. Parenchyma: No significant volume loss for age. The brain parenchyma is otherwise within normal limits of signal intensity and morphology. Ventricles: Normal caliber and morphology. Skull Base: Hypothalamic and pituitary region are unremarkable. Craniocervical junction is normal. No significant marrow replacement process. Other: Mastoid effusions, left greater than right. The paranasal sinuses are clear. The orbits and extracranial soft tissues are unremarkable. MRA: Intracranial: Anterior circulation: There is expected flow signal in the internal carotid arteries and the proximal anterior and middle cerebral arteries. No aneurysm. Posterior circulation: Normal variant left dominant vertebral artery. There is expected flow signal in the vertebral arteries, basilar artery, and proximal posterior cerebral arteries. No aneurysm. Extracranial: There is expected flow signal in the visualized common and internal carotid arteries. Normal variant left dominant vertebral artery with expected flow signal in the visualized cervical vertebral arteries. DIVISION OF RADIOLOGY Provider, [facility] - 02/06/2024 * * *Final Report* * * DATE OF EXAM: Feb 06 2024 3:05PM [facility] 0294 - MRI BRAIN WO IVCON / PROCEDURE REASON: multiple diagnoses * * * * Physician Interpretation * * * * EXAMINATION: MRA BRAIN WO IVCON, MRA CAROTID WO IVCON, MRI BRAIN WO IVCON CLINICAL HISTORY: Dizziness, blurred vision, balance difficulties TECHNIQUE: Routine noncontrast MRI brain protocol including diffusion and gradient echo images. Intracranial and extracranial 3D [id number] MRA with post-processing performed at the modality and 2D multiplanar and 3D maximum intensity projections were created, reviewed and archived. MQ: MRAB_4 COMPARISON: None. RESULT: BRAIN: Acute Change: There is no evidence of restricted diffusion to suggest an acute infarct. Hemorrhage: Innumerable chronic microhemorrhages involving both cerebral and cerebellar hemispheres as well as the brainstem with relative sparing of the deep [place] nuclei. No associated T1 or T2 signal abnormality. Mass Lesion/ Mass Effect: No evidence of an intracranial mass or extra-axial fluid collection. No significant mass effect. Chronic Change: Nonspecific T2 hyperintense signal in the white matter, likely secondary to chronic small vessel ischemic disease. Parenchyma: No significant volume loss for age. The brain parenchyma is otherwise within normal limits of signal intensity and morphology. Ventricles: Normal caliber and morphology. Skull Base: Hypothalamic and pituitary region are unremarkable. Craniocervical junction is normal. No significant marrow replacement process. Other: Mastoid effusions, left greater than right. The paranasal sinuses are clear. The orbits and extracranial soft tissues are unremarkable. MRA: Intracranial: Anterior circulation: There is expected flow signal in the internal carotid arteries and the proximal anterior and middle cerebral arteries. No aneurysm. Posterior circulation: Normal variant left dominant vertebral artery. There is expected flow signal in the vertebral arteries, basilar artery, and proximal posterior cerebral arteries. No aneurysm. Extracranial: There is expected flow signal in the visualized common and internal carotid arteries. Normal variant left dominant vertebral artery with expected flow signal in the visualized cervical vertebral arteries. IMPRESSION IMPRESSION: No acute intracranial pathology. Innumerable chronic microhemorrhages, of uncertain etiology. No stenosis or occlusion in the head or neck. Bundle Clerk: PSCB Transcribe Date/Time: Feb 06 2024 3:47P Dictated by : SUHAS CASTILLO MD This examination was interpreted and the report reviewed and electronically signed by: SUHAS CASTILLO MD on Feb 06 2024 3:54PM [facility] MRA Head vessels WO contrast on 02-06-2024 * * *Final Report* * * DATE OF EXAM: Feb 06 2024 3:05PM [facility] 0272 - MRA BRAIN WO IVCON / PROCEDURE REASON: multiple diagnoses * * * * Physician Interpretation * * * * EXAMINATION: MRA BRAIN WO IVCON, MRA CAROTID WO IVCON, MRI BRAIN WO IVCON CLINICAL HISTORY: Dizziness, blurred vision, balance difficulties TECHNIQUE: Routine noncontrast MRI brain protocol including diffusion and gradient echo images. Intracranial and extracranial 3D [id number] MRA with post-processing performed at the modality and 2D multiplanar and 3D maximum intensity projections were created, reviewed and archived. MQ: MRAB_4 COMPARISON: None. RESULT: BRAIN: Acute Change: There is no evidence of restricted diffusion to suggest an acute infarct. Hemorrhage: Innumerable chronic microhemorrhages involving both cerebral and cerebellar hemispheres as well as the brainstem with relative sparing of the deep [place] nuclei. No associated T1 or T2 signal abnormality. Mass Lesion/ Mass Effect: No evidence of an intracranial mass or extra-axial fluid collection. No significant mass effect. Chronic Change: Nonspecific T2 hyperintense signal in the white matter, likely secondary to chronic small vessel ischemic disease. Parenchyma: No significant volume loss for age. The brain parenchyma is otherwise within normal limits of signal intensity and morphology. Ventricles: Normal caliber and morphology. Skull Base: Hypothalamic and pituitary region are unremarkable. Craniocervical junction is normal. No significant marrow replacement process. Other: Mastoid effusions, left greater than right. The paranasal sinuses are clear. The orbits and extracranial soft tissues are unremarkable. MRA: Intracranial: Anterior circulation: There is expected flow signal in the internal carotid arteries and the proximal anterior and middle cerebral arteries. No aneurysm. Posterior circulation: Normal variant left dominant vertebral artery. There is expected flow signal in the vertebral arteries, basilar artery, and proximal posterior cerebral arteries. No aneurysm. Extracranial: There is expected flow signal in the visualized common and internal carotid arteries. Normal variant left dominant vertebral artery with expected flow signal in the visualized cervical vertebral arteries. DIVISION OF RADIOLOGY Provider, [facility] - 02/06/2024 * * *Final Report* * * DATE OF EXAM: Feb 06 2024 3:05PM [facility] 0272 - MRA BRAIN WO IVCON / PROCEDURE REASON: multiple diagnoses * * * * Physician Interpretation * * * * EXAMINATION: MRA BRAIN WO IVCON, MRA CAROTID WO IVCON, MRI BRAIN WO IVCON CLINICAL HISTORY: Dizziness, blurred vision, balance difficulties TECHNIQUE: Routine noncontrast MRI brain protocol including diffusion and gradient echo images. Intracranial and extracranial 3D [id number] MRA with post-processing performed at the modality and 2D multiplanar and 3D maximum intensity projections were created, reviewed and archived. MQ: MRAB_4 COMPARISON: None. RESULT: BRAIN: Acute Change: There is no evidence of restricted diffusion to suggest an acute infarct. Hemorrhage: Innumerable chronic microhemorrhages involving both cerebral and cerebellar hemispheres as well as the brainstem with relative sparing of the deep [place] nuclei. No associated T1 or T2 signal abnormality. Mass Lesion/ Mass Effect: No evidence of an intracranial mass or extra-axial fluid collection. No significant mass effect. Chronic Change: Nonspecific T2 hyperintense signal in the white matter, likely secondary to chronic small vessel ischemic disease. Parenchyma: No significant volume loss for age. The brain parenchyma is otherwise within normal limits of signal intensity and morphology. Ventricles: Normal caliber and morphology. Skull Base: Hypothalamic and pituitary region are unremarkable. Craniocervical junction is normal. No significant marrow replacement process. Other: Mastoid effusions, left greater than right. The paranasal sinuses are clear. The orbits and extracranial soft tissues are unremarkable. MRA: Intracranial: Anterior circulation: There is expected flow signal in the internal carotid arteries and the proximal anterior and middle cerebral arteries. No aneurysm. Posterior circulation: Normal variant left dominant vertebral artery. There is expected flow signal in the vertebral arteries, basilar artery, and proximal posterior cerebral arteries. No aneurysm. Extracranial: There is expected flow signal in the visualized common and internal carotid arteries. Normal variant left dominant vertebral artery with expected flow signal in the visualized cervical vertebral arteries. IMPRESSION IMPRESSION: No acute intracranial pathology. Innumerable chronic microhemorrhages, of uncertain etiology. No stenosis or occlusion in the head or neck. Bundle Clerk: PSCB Transcribe Date/Time: Feb 06 2024 3:47P Dictated by : SUHAS CASTILLO MD This examination was interpreted and the report reviewed and electronically signed by: SUHAS CASTILLO MD on Feb 06 2024 3:54PM [facility] MRA Neck vessels WO contrast on 02-06-2024 * * *Final Report* * * DATE OF EXAM: Feb 06 2024 3:05PM [facility] 0275 - MRA CAROTID WO IVCON / PROCEDURE REASON: multiple diagnoses * * * * Physician Interpretation * * * * EXAMINATION: MRA BRAIN WO IVCON, MRA CAROTID WO IVCON, MRI BRAIN WO IVCON CLINICAL HISTORY: Dizziness, blurred vision, balance difficulties TECHNIQUE: Routine noncontrast MRI brain protocol including diffusion and gradient echo images. Intracranial and extracranial 3D [id number] MRA with post-processing performed at the modality and 2D multiplanar and 3D maximum intensity projections were created, reviewed and archived. MQ: MRAB_4 COMPARISON: None. RESULT: BRAIN: Acute Change: There is no evidence of restricted diffusion to suggest an acute infarct. Hemorrhage: Innumerable chronic microhemorrhages involving both cerebral and cerebellar hemispheres as well as the brainstem with relative sparing of the deep de [place] nuclei. No associated T1 or T2 signal abnormality. Mass Lesion/ Mass Effect: No evidence of an intracranial mass or extra-axial fluid collection. No significant mass effect. Chronic Change: Nonspecific T2 hyperintense signal in the white matter, likely secondary to chronic small vessel ischemic disease. Parenchyma: No significant volume loss for age. The brain parenchyma is otherwise within normal limits of signal intensity and morphology. Ventricles: Normal caliber and morphology. Skull Base: Hypothalamic and pituitary region are unremarkable. Craniocervical junction is normal. No significant marrow replacement process. Other: Mastoid effusions, left greater than right. The paranasal sinuses are clear. The orbits and extracranial soft tissues are unremarkable. MRA: Intracranial: Anterior circulation: There is expected flow signal in the internal carotid arteries and the proximal anterior and middle cerebral arteries. No aneurysm. Posterior circulation: Normal variant left dominant vertebral artery. There is expected flow signal in the vertebral arteries, basilar artery, and proximal posterior cerebral arteries. No aneurysm. Extracranial: There is expected flow signal in the visualized common and internal carotid arteries. Normal variant left dominant vertebral artery with expected flow signal in the visualized cervical vertebral arteries. DIVISION OF RADIOLOGY Provider, [facility] - 02/06/2024 * * *Final Report* * * DATE OF EXAM: Feb 06 2024 3:05PM [facility] 0275 - MRA CAROTID WO IVCON / PROCEDURE REASON: multiple diagnoses * * * * Physician Interpretation * * * * EXAMINATION: MRA BRAIN WO IVCON, MRA CAROTID WO IVCON, MRI BRAIN WO IVCON CLINICAL HISTORY: Dizziness, blurred vision, balance difficulties TECHNIQUE: Routine noncontrast MRI brain protocol including diffusion and gradient echo images. Intracranial and extracranial 3D [id number] MRA with post-processing performed at the modality and 2D multiplanar and 3D maximum intensity projections were created, reviewed and archived. MQ: MRAB_4 COMPARISON: None. RESULT: BRAIN: Acute Change: There is no evidence of restricted diffusion to suggest an acute infarct. Hemorrhage: Innumerable chronic microhemorrhages involving both cerebral and cerebellar hemispheres as well as the brainstem with relative sparing of the deep [place] nuclei. No associated T1 or T2 signal abnormality. Mass Lesion/ Mass Effect: No evidence of an intracranial mass or extra-axial fluid collection. No significant mass effect. Chronic Change: Nonspecific T2 hyperintense signal in the white matter, likely secondary to chronic small vessel ischemic disease. Parenchyma: No significant volume loss for age. The brain parenchyma is otherwise within normal limits of signal intensity and morphology. Ventricles: Normal caliber and morphology. Skull Base: Hypothalamic and pituitary region are unremarkable. Craniocervical junction is normal. No significant marrow replacement process. Other: Mastoid effusions, left greater than right. The paranasal sinuses are clear. The orbits and extracranial soft tissues are unremarkable. MRA: Intracranial: Anterior circulation: There is expected flow signal in the internal carotid arteries and the proximal anterior and middle cerebral arteries. No aneurysm. Posterior circulation: Normal variant left dominant vertebral artery. There is expected flow signal in the vertebral arteries, basilar artery, and proximal posterior cerebral arteries. No aneurysm. Extracranial: There is expected flow signal in the visualized common and internal carotid arteries. Normal variant left dominant vertebral artery with expected flow signal in the visualized cervical vertebral arteries. IMPRESSION IMPRESSION: No acute intracranial pathology. Innumerable chronic microhemorrhages, of uncertain etiology. No stenosis or occlusion in the head or neck. Bundle Clerk: PETER Transcribe Date/Time: Feb 06 2024 3:47P Dictated by : SUHAS CASTILLO MD This examination was interpreted and the report reviewed and electronically signed by: SUHAS CASTILLO MD on Feb 06 2024 3:54PM [facility] No Panel Informationon 02-05 IMPRESSION: No acute intracranial pathology. Innumerable chronic microhemorrhages, of uncertain etiology. No stenosis or occlusion in the head or neck. Bundle Clerk: PETER Transcribe Date/Time: Feb 06 2024 3:47P Dictated by : SUHAS CASTILLO MD This examination was interpreted and the report reviewed and electronically signed by: SUHAS CASTILLO MD on Feb 06 2024 3:54PM [facility] DIVISION OF RADIOLOGY Radiology Study observation (narrative) [facility] No Panel InformationOrdered By: Ccf Provider on 02-06-2024 [facility] US Head and neck soft tissue on 11-06-2023 IMPRESSION: The lateral right neck soft tissue was scanned and imaged. There is a 1.2 x 0.8 x 1.1 cm simple appearing cyst identified. Bundle [facility] Transcribe Date/Time: Nov 06 2023 3:13P Dictated by : TONIA JACOME MD This examination was interpreted and the report reviewed and electronically signed by: TONIA JACOME MD on Nov 06 2023 3:14PM EST DIVISION OF RADIOLOGY * * *Final Report* * * DATE OF EXAM: Nov 06 2023 2:37PM [facility] 1052 - US HEAD/NECK SOFT TISSUE OTHER / PROCEDURE REASON: multiple diagnoses * * * * Physician Interpretation * * * * US HEAD/NECK SOFT TISSUE OTHER EXAM DATE/TIME: 11/06/2023 2:37 PM CLINICAL HISTORY: Right neck lymphadenopathy COMPARISON: None. TECHNIQUE: Sonography of the lateral right neck soft tissue was performed. Images were obtained and stored in a permanent archive. FINDINGS AND DIVISION OF RADIOLOGY Provider, Kory Casillas - 11/06/2023 * * *Final Report* * * DATE OF EXAM: Nov 06 2023 2:37PM [facility] 1052 - US HEAD/NECK SOFT TISSUE OTHER / PROCEDURE REASON: multiple diagnoses * * * * Physician Interpretation * * * * US HEAD/NECK SOFT TISSUE OTHER EXAM DATE/TIME: 11/06/2023 2:37 PM CLINICAL HISTORY: Right neck lymphadenopathy COMPARISON: None. TECHNIQUE: Sonography of the lateral right neck soft tissue was performed. Images were obtained and stored in a permanent archive. FINDINGS AND IMPRESSION IMPRESSION: The lateral right neck soft tissue was scanned and imaged. There is a 1.2 x 0.8 x 1.1 cm simple appearing cyst identified. Bundle Clerk[facility] Transcribe Date/Time: Nov 06 2023 3:13P Dictated by : TONIA JACOME MD This examination was interpreted and the report reviewed and electronically signed by: TONIA JACOME MD on Nov 06 2023 3:14PM EST [facility] Radiology Study observation (narrative) [facility] US Head and neck soft tissue Ordered By: Ccf Provider on 11-06-2023 [facility] XR Chest PA and Lateralon IMPRESSION: Stable exam without acute findings. Bundle Clerk: PSCB Transcribe Date/Time: Oct 28 2023 2:07P Dictated by : TONIA JACOME MD This examination was interpreted and the report reviewed and electronically signed by: TONIA JACOME MD on Oct 28 2023 2:08PM EST DIVISION OF RADIOLOGY * * *Final Report* * * DATE OF EXAM: Oct 28 2023 1:59PM [facility] 5291 - XR CHEST 2V FRONTAL/LAT / PROCEDURE REASON: multiple diagnoses * * * * Physician Interpretation * * * * EXAMINATION: CHEST RADIOGRAPH (2 VIEW FRONTAL & LATERAL) CLINICAL HISTORY: Viral bronchitis URI with cough and congestion MQ: XC2_6 EXAM DATE/TIME: 10/28/2023 1:59 PM COMPARISON: Chest x-ray on 11/05/2022 RESULT: Lines, tubes, and devices: None. Lungs and pleura: No consolidation. No lung mass. No pleural effusion. No pneumothorax. Cardiomediastinal silhouette: Stable cardiomediastinal silhouette. Bones and soft tissues: Unremarkable. DIVISION OF RADIOLOGY Provider, Kory Carson [facility] - 10/28/2023 * * *Final Report* * * DATE OF EXAM: Oct 28 2023 1:59PM [facility] 5291 - XR CHEST 2V FRONTAL/LAT / PROCEDURE REASON: multiple diagnoses * * * * Physician Interpretation * * * * EXAMINATION: CHEST RADIOGRAPH (2 VIEW FRONTAL & LATERAL) CLINICAL HISTORY: Viral bronchitis URI with cough and congestion MQ: XC2_6 EXAM DATE/TIME: 10/28/2023 1:59 PM COMPARISON: Chest x-ray on 11/05/2022 RESULT: Lines, tubes, and devices: None. Lungs and pleura: No consolidation. No lung mass. No pleural effusion. No pneumothorax. Cardiomediastinal silhouette: Stable cardiomediastinal silhouette. Bones and soft tissues: Unremarkable. IMPRESSION IMPRESSION: Stable exam without acute findings. Bundle Clerk: PSCB Transcribe Date/Time: Oct 28 2023 2:07P Dictated by : TONIA JACOME MD This examination was interpreted and the report reviewed and electronically signed by: TONIA JACOME MD on Oct 28 2023 2:08PM EST [facility] Radiology Study observation (narrative) [facility] XR Chest PA and LateralOrder ed By: Ccf Provider on 10-28-2023 [facility] CBC W Auto Differential pane l (Bld)on 07-21-2023 Basophils (Bld) [#/Vol] 0.05 10*3/uL <0.11 k/uL [facility] Basophils/100 WBC (Bld) 0.9 % [facility] Differential cell count method Nom (Bld) Auto [facility] Eosinophils (Bld) [#/Vol] 0.15 10*3/uL <0.46 k/uL [facility] Eosinophils/100 WBC (Bld) 2.8 % [facility] Erythrocyte distribution width (RBC) [Ratio] 13.2 % 11.5 - 15.0 % [facility] Hematocrit (Bld) [Volume fraction] 35.2 % Low 39.0 - 51.0 % [facility] Hemoglobin (Bld) [Mass/Vol] 11.8 g/dL Low 13.0 - 17.0 g/dL [facility] Immature granulocytes (Bld) [#/Vol] <0.10 k/uL [facility] Immature granulocytes/100 WBC (Bld) 0.2 % [facility] Lymphocytes (Bld) [#/Vol] 2.98 10*3/uL 1.00 - 4.00 k/uL [facility] Lymphocytes/100 WBC (Bld) 55.9 % [facility] MCH (RBC) [Entitic mass] 36.4 pg High 26.0 - 34.0 pg [facility] MCHC (RBC) [Mass/Vol] 33.5 g/dL 30.5 - 36.0 g/dL [facility] MCV (RBC) [Entitic vol] 108.6 fL High 80.0 - 100.0 fL [facility] Monocytes (Bld) [#/Vol] 0.60 10*3/uL <0.87 k/uL [facility] Monocytes/100 WBC (Bld) 11.3 % [facility] Neutrophils (Bld) [#/Vol] 1.54 10*3/uL 1.45 - 7.50 k/uL [facility] Neutrophils/100 WBC (Bld) 28.9 % [facility] Nucleated RBC (Bld) [#/Vol] <0.01 k/uL [facility] Nucleated RBC/100 WBC (Bld) [Ratio] 0.0 /100 WBC [facility] Platelet mean volume (Bld) [Entitic vol] 10.5 fL 9.0 - 12.7 fL [facility] Platelets (Bld) [#/Vol] 243 10*3/uL 150 - 400 k/uL [facility] RBC (Bld) [#/Vol] 3.24 10*6/uL Low 4.20 - 6.0 0 m/uL [facility] WBC (Bld) [#/Vol] 5.33 10*3/uL 3.70 - 11.00 k/uL [facility] Comprehensive metabolic 2000 panelon 07-21-2023 Albumin [Mass/Vol] 4.3 g/dL 3.9 - 4.9 g/dL [facility] ALP [Catalytic activity/Vol] 77 U/L 38 - 113 U/L [facility] ALT [Catalytic activity/Vol] 13 U/L 10 - 54 U/L [facility] Anion gap [Moles/Vol] 9 mmol/L 9 - 18 mmol/L [facility] AST [Catalytic activity/Vol] 22 U/L 14 - 40 U/L [facility] Bilirubin [Mass/Vol] 0.2 mg/dL 0.2 - 1.3 mg/dL [facility] Calcium [Mass/Vol] 9.8 mg/dL 8.5 - 10. 2 mg/dL [facility] Chloride [Moles/Vol] 106 mmol/L High 97 - 105 mmol/L [facility] CO2 [Moles/Vol] 25 mmol/L 22 - 30 mmol/L [facility] Creatinine [Mass/Vol] 1.47 mg/dL High 0.73 - 1.22 mg/dL [facility] Estimated Glomerular Filtration Rate 54 mL/min/1.73m Low >=60 mL/min/1.73 m [facility] Glucose [Mass/Vol] 104 mg/dL High 74 - 99 mg/dL [facility] Potassium [Moles/Vol] 4.6 mmol/L 3.7 - 5.1 mmol/L [facility] Protein [Mass/Vol] 6.6 g/dL 6.3 - 8.0 g/dL [facility] Sodium [Moles/Vol] 140 mmol/L 136 - 144 mmol/L [facility] Urea nitrogen [Mass/Vol] 16 mg/dL 9 - 24 mg/dL [facility] XR CHEST 2V FRONTAL/LATon [facility] XR Chest PA and Lateralon IMPRESSION: No acute radiographic abnormality. Bundle Clerk: PETER Transcribe Date/Time: Nov 05 2022 3:45P Dictated by : TONIA JACOME MD This examination was interpreted and the report reviewed and electronically signed by: TONIA JACOME MD on Nov 05 2022 3:45PM EST DIVISION OF RADIOLOGY * * *Final Report* * * DATE OF EXAM: Nov 05 2022 10:53AM [facility] 5291 - XR CHEST 2V FRONTAL/LAT / PROCEDURE REASON: Chest pain, unspecified type * * * * Physician Interpretation * * * * EXAMINATION: CHEST RADIOGRAPH (2 VIEW FRONTAL & LATERAL) CLINICAL HISTORY: Chest pain, unspecified type MQ: XC2_6 EXAM DATE/TIME: 11/05/2022 10:53 AM COMPARISON: No relevant prior studies available. RESULT: Lines, tubes, and devices: None. Lungs and pleura: No consolidation. No lung mass. No pleural effusion. No pneumothorax. Left-sided large cardiac fat pad is noted. Cardiomediastinal silhouette: Normal cardiomediastinal silhouette. Bones and soft tissues: Unremarkable. DIVISION OF RADIOLOGY Provider, Kacey Alli [facility] - 11/05/2022 * * *Final Report* * * DATE OF EXAM: Nov 05 2022 10:53AM [facility] 5291 - XR CHEST 2V FRONTAL/LAT / PROCEDURE REASON: Chest pain, unspecified type * * * * Physician Interpretation * * * * EXAMINATION: CHEST RADIOGRAPH (2 VIEW FRONTAL & LATERAL) CLINICAL HISTORY: Chest pain, unspecified type MQ: XC2_6 EXAM DATE/TIME: 11/05/2022 10:53 AM COMPARISON: No relevant prior studies available. RESULT: Lines, tubes, and devices: None. Lungs and pleura: No consolidation. No lung mass. No pleural effusion. No pneumothorax. Left-sided large cardiac fat pad is noted. Cardiomediastinal silhouette: Normal cardiomediastinal silhouette. Bones and soft tissues: Unremarkable. IMPRESSION IMPRESSION: No acute radiographic abnormality. Bundle Clerk: PSCB Transcribe Date/Time: Nov 05 2022 3:45P Dictated by : TONIA JACOME MD This examination was interpreted and the report reviewed and electronically signed by: TONIA JACOME MD on Nov 05 2022 3:45PM EST [facility] Radiology Study observation (narrative) [facility] XR Chest PA and LateralOrder ed By: Ccf Provider on 11-05-2022 [facility] XR Knee - bilateral 4 Viewso n 10-18-2022 IMPRESSION: Findings are suggestive of degenerative changes in the bilateral knees with right-sided joint effusion. Bundle Clerk: PETER Transcribe Date/Time: Oct 18 2022 5:41P Dictated by : TONIA JACOME MD This examination was interpreted and the report reviewed and electronically signed by: TONIA JACOME MD on Oct 18 2022 5:43PM [facility] DIVISION OF RADIOLOGY * * *Final Report* * * DATE OF EXAM: Oct 15 2022 1:49PM [facility] 5618 - XR KNEE 4V AP/PA/LAT/MERCH KENDRICK / PROCEDURE REASON: multiple diagnoses * * * * Physician Interpretation * * * * EXAM TITLE: XR KNEE 4V AP/PA/LAT/MERCH KENDRICK EXAM DATE/TIME: 10/15/2022 1:49 PM COMPARISON: X-ray knee on 11/04/2018 CLINICAL INDICATION/HISTORY: Bilateral knee pain. TECHNIQUE: AP, lateral, sunrise and tunnel views of both knees are presented. FINDINGS: No acute fractures or subluxations are noted. Left-sided medial and right-sided lateral compartmental joint space narrowing is demonstrated. Marginal bony spurs seen bilaterally. There is small right-sided joint effusion. The mineralization of the bones is normal. There is no significant soft tissue swelling. [facility]Y [facility] * * *Final Report* * * DATE OF EXAM: Oct 15 2022 1:49PM [facility] 5618 - XR KNEE 4V AP/PA/LAT/MERCH KENDRICK / PROCEDURE REASON: multiple diagnoses * * * * Physician Interpretation * * * * EXAM TITLE: XR KNEE 4V AP/PA/LAT/MERCH KENDRICK EXAM DATE/TIME: 10/15/2022 1:49 PM COMPARISON: X-ray knee on 11/04/2018 CLINICAL INDICATION/HISTORY: Bilateral knee pain. TECHNIQUE: AP, lateral, sunrise and tunnel views of both knees are presented. FINDINGS: No acute fractures or subluxations are noted. Left-sided medial and right-sided lateral compartmental joint space narrowing is demonstrated. Marginal bony spurs seen bilaterally. There is small right-sided joint effusion. The mineralization of the bones is normal. There is no significant soft tissue swelling. IMPRESSION IMPRESSION: Findings are suggestive of degenerative changes in the bilateral knees with right-sided joint effusion. Bundle Clerk: PSCB Transcribe Date/Time: Oct 18 2022 5:41P Dictated by : TONIA JACOME MD This examination was interpreted and the report reviewed and electronically signed by: TONIA JACOME MD on Oct 18 2022 5:43PM EST [facility] XR Knee - bilateral 4 ViewsO rdered By: Ccf Provider on 10-18-2022 [facility] XR Knee - bilateral 4 Viewso n 10-15-2022 Radiology Study observation (narrative) [facility] ECG COMPLETEon 12-21-2021 Atrial Rate 78 BPM [facility] Calculated P [place] 46 degrees [facility] Calculated R [place] 57 degrees [facility] Calculated T [place] 52 degrees [facility] P-R Interval 200 ms [facility] QRS Duration 106 ms [facility] QT Interval 370 ms [facility] QTC Calculation (Bazett) 421 ms [facility] Ventricular Rate 78 BPM [facility] Basophil percentageon 2021 Bilirubin [Mass/Vol] 0.30 mg/dL 0.20-1.00 [facility] Work Phone: Comment on above: For patients on eltr ombopag therapy, use of Dimension Milo TBIL is not recommended. Protein [Mass/Vol] 6.8 g/dL 6.4-8.2 [facility] Work Phone: Direct bilirubinon 2 Bilirubin.direct [Mass/Vol] 0.13 mg/dL 0.00-0.30 [facility] Work Phone: Laboratory - Chemistry and C hemistry - challengeon 12-19-2021 ALP [Catalytic activity/Vol] 105 U/L 45-117 [facility] [facility] ALT [Catalytic activity/Vol] 85 U/L 16-61 [facility] Work Phone: Globulin (S) [Mass/Vol] 3.1 g/dL 2.2-4.2 [facility] Work Phone: Lipase [Catalytic activity/Vol] 222 U/L 73-393 [facility] Work Phone: Serum or plasma albumin gonzales urement (mass/volume)on 12-19-2021 Albumin [Mass/Vol] 3.7 g/dL 3.2-5.0 [facility] Work Phone: Thin prep Papanicolaou smear with manual screeningon 12-19-2021 Thin prep Papanicolaou smear with manual screening 31 U/L 15-37 [facility] Work Phone: Absolute lymphocyte counton 12-13-2021 Lymphocytes Auto (Unsp spec) [#/Vol] 1.64 10*3/uL 0.83-4.51 [facility] Work Phone: Basophil percentageon 2021 Basophils/100 WBC (Bld) 0.5 % 0-1 [facility] Work Phone: Bilirubin [Mass/Vol] 0.70 mg/dL 0.20-1.00 [facility] Work Phone: Comment on above: For patients on eltr ombopag therapy, use of Dimension Milo TBIL is not recommended. Chloride [Moles/Vol] 104 mmol/L 98-107 [facility] Work Phone: Eosinophils/100 WBC (Bld) 1.8 % 0-5 [facility] Work Phone: Glucose [Mass/Vol] 112 mg/dL 74-106 [facility] Work Phone: Comment on above: Fasting Glucose resu lt from 100 to 125 mg/dL suggests IMPAIRED HOMEOSTASIS per A.D.A. criteria. Lactate [Moles/Vol] 0.9 mmol/L 0.4-2.0 [facility] Work Phone: Neutrophils (Bld) [#/Vol] 4.0 10*3/uL 2.0-7.7 [facility] Work Phone: Neutrophils/100 WBC (Bld) 60.8 % 47-70 [facility] Work Phone: Potassium [Moles/Vol] 4.1 mmol/L 3.5-5.1 [facility] Work Phone: Protein [Mass/Vol] 6.5 g/dL 6.4-8.2 [facility] Work Phone: Sodium [Moles/Vol] 137 mmol/L 136-145 [facility] Work Phone: WBC (Bld) [#/Vol] 6.5 10*3/uL 4.4-11.0 [facility] Work Phone: Blood erythrocytes count (nu mber/volume)on 12-13-2021 RBC (Bld) [#/Vol] 3.61 10*6/uL 4.6-6.2 [facility]: Blood hemoglobin measurement (mass/volume)on 12-13-2021 Hemoglobin (Bld) [Mass/Vol] 13.3 g/dL 13.0-16.5 [facility] Work Phone: Blood lymphocytes/100 leukoc yteson 12-13-2021 Lymphocytes/100 WBC (Bld) 25.1 % 19-41 [facility] Work Phone: Blood monocytes/100 leukocyt eson 12-13-2021 Monocytes/100 WBC (Bld) 11.3 % 0-10 [facility] Work Phone: Blood platelet mean volumeon 12-13-2021 Platelet mean volume (Bld) [Entitic vol] 9.7 fL 6.2-12.0 [facility] Work Phone: Determination of erythrocyte mean corpuscular volume (MCV)on 12-13-2021 MCV (RBC) [Entitic vol] 102.2 fL 80-94 [facility] Work Phone: Hematocrit Auto (Bld) [Volum e fraction]on 12-13-2021 Hematocrit (Bld) [Volume fraction] 36.9 % 40-54 [facility] Work Phone: Laboratory - Chemistry and C hemistry - challengeon 12-13-2021 ALP [Catalytic activity/Vol] 103 U/L 45-117 [facility] Work Phone: [phone] ALT [Catalytic activity/Vol] 119 U/L 16-61 [facility] Work Phone: [phone] CO2 [Moles/Vol] 29.0 mmol/L 21.0-32.0 [facility] Work Phone: [phone] Globulin (S) [Mass/Vol] 3.0 g/dL 2.2-4.2 [facility] Work Phone: [phone] Lipase [Catalytic activity/Vol] 821 U/L 73-393 [facility] Work Phone: [phone] Urea nitrogen/Creatinine [Mass ratio] 13.8 mg/mg 10-20 [facility] Work Phone: Laboratory - Hematology and Cell countson 12-13-2021 Erythrocyte distribution width (RBC) [Entitic vol] 46.6 fL 35.1-43.9 [facility] Work Phone: [phone] Erythrocyte distribution width (RBC) [Ratio] 12.5 % 11.6-14.6 [facility] Work Phone: [phone] Immature granulocytes/100 WBC (Bld) 0.500 % 0.0-0.9 [facility] Work Phone: Comment on above: IG% - Immature Granu locytes (promyelocytes, myelocytes and metamyelocytes) > 1% indicates that a LEFT SHIFT is Present. MCH (RBC) [Entitic mass] 36.8 pg 27.0-32.0 [facility] Work Phone: Nucleated RBC/100 WBC (Bld) [Ratio] 0 % 0-5 [facility] Work Phone: [phone] MCHC Auto (RBC) [Mass/Vol]on 12-13-2021 MCHC (RBC) [Mass/Vol] 36.0 g/dL 32-36 [facility] Work Phone: No Panel Informationon 12-13 Estimated Creatinine Clearance Calc 67.84 ml/min [facility] Work Phone: Estimated GFR (MDRD) Amer 68 mL/min >60 [facility] Work Phone: Comment on above: GFR Calc Estimated GFR (MDRD) Non-Af Amer 56 mL/min >60 [facility] Work Phone: Comment on above: Non- GFR Calc Platelets bldon 12-13-2021 Platelets (Bld) [#/Vol] 181 10*3/uL 150-450 [facility] Work Phone: Serum or plasma albumin gonzales urement (mass/volume)on 12-13-2021 Albumin [Mass/Vol] 3.5 g/dL 3.2-5.0 [facility] Work Phone: Serum or plasma albumin/glob ulin mass ratioon 12-13-2021 Albumin/Globulin [Mass ratio] 1.2 {ratio} 0.9-2.4 [facility] Work Phone: Serum or plasma calcium gonzales urement (mass/volume)on 12-13-2021 Calcium [Mass/Vol] 8.9 mg/dL 8.5-10.1 [facility] Work Phone: Serum or plasma creatinine m easurement (mass/volume)on 12-13-2021 Creatinine [Mass/Vol] 1.38 mg/dL 0.70-1.30 [facility] Work Phone: Comment on above: The validity of the calculated GFR & GFRAA in patients over 70 years has not been determined. Clinical correlation is essential. Serum or plasma urea nitroge n measurement (mass/volume)on 12-13-2021 Urea nitrogen [Mass/Vol] 19 mg/dL - [facility] Work Phone: Thin prep Papanicolaou smear with manual screeningon 12-13-2021 Thin prep Papanicolaou smear with manual screening 177 U/L 15- [facility] Work Phone: Thin prep Papanicolaou smear with manual screening 4 5-15 [facility] Work Phone: XR Finger - left AP and Late ral and obliqueon 10-25-2020 IMPRESSION: Mild degenerative changes of the first digit. No acute fractures seen. Bundle Clerk: PETER Transcribe Date/Time: Oct 25 2020 6:04P Dictated by : TONIA JACOME MD This examination was interpreted and the report reviewed and electronically signed by: TONIA JACOME MD on Oct 25 2020 6:06PM [facility] DIVISION OF RADIOLOGY * * *Final Report* * * DATE OF EXAM: Oct 25 2020 6:01PM WOX [id number] - XR DIGIT 3V FRONTAL/LAT/OBL LT / PROCEDURE REASON: Pain of left thumb * * * * Physician Interpretation * * * * EXAM TITLE: XR DIGIT 3V FRONTAL/LAT/OBL LT EXAM DATE/TIME: 10/25/2020 6:01 PM COMPARISON: None. CLINICAL INDICATION/HISTORY: Fell 2 weeks ago. TECHNIQUE: PA, lateral and oblique views of the first digit of the left hand are presented. FINDINGS: No acute fractures or subluxations are noted. Mild degenerative changes involving the DIP joint. The mineralization of the bones is normal. There is no significant soft tissue swelling. DIVISION OF RADIOLOGY Provider, [facility] - 10/25/2020 * * *Final Report* * * DATE OF EXAM: Oct 25 2020 6:01PM WOX [id number] - XR DIGIT 3V FRONTAL/LAT/OBL LT / PROCEDURE REASON: Pain of left thumb * * * * Physician Interpretation * * * * EXAM TITLE: XR DIGIT 3V FRONTAL/LAT/OBL LT EXAM DATE/TIME: 10/25/2020 6:01 PM COMPARISON: None. CLINICAL INDICATION/HISTORY: Fell 2 weeks ago. TECHNIQUE: PA, lateral and oblique views of the first digit of the left hand are presented. FINDINGS: No acute fractures or subluxations are noted. Mild degenerative changes involving the DIP joint. The mineralization of the bones is normal. There is no significant soft tissue swelling. IMPRESSION IMPRESSION: Mild degenerative changes of the first digit. No acute fractures seen. Bundle Clerk: PSCB Transcribe Date/Time: Oct 25 2020 6:04P Dictated by : TONIA JACOME MD This examination was interpreted and the report reviewed and electronically signed by: TONIA JACOME MD on Oct 25 2020 6:06PM EST [facility] Radiology Study observation (narrative) [facility] XR Finger - left AP and Late ral and obliqueOrdered By: [facility] Provider on 10-25-2020 [facility] Vital Signs Date Time Vital Sign Value Performing Clinician Tello clifton 11-17-2024 14:06-0400 Body mass index (BMI) [Ratio] 32.61 kg/m2 Rose Marie Podlogar SALES SOLUTIONS REPRESENTATIVE.TRANSPLANT COORDINATOR Work Phone: [facility] 11-17-2024 14:06-0400 Body weight 106.05 kg Rose Marie Podlogar SALES SOLUTIONS REPRESENTATIVE.TRANSPLANT COORDINATOR Work Phone: [facility] 11-17-2024 14:06-0400 Diastolic blood pressure 86 mm[Hg] Rose Marie Podlogar SALES SOLUTIONS REPRESENTATIVE.TRANSPLANT COORDINATOR Work Phone: [facility] 11-17-2024 14:06-0400 Heart rate 88 /min Rose Marie Podlogar SALES SOLUTIONS REPRESENTATIVE.TRANSPLANT COORDINATOR Work Phone: [facility] 11-17-2024 14:06-0400 Respiratory rate 18 /min Rose Marie Podlogar SALES SOLUTIONS REPRESENTATIVE.TRANSPLANT COORDINATOR Work Phone: [facility] 11-17-2024 14:06-0400 SaO2% (BldA) [Mass fraction] 96 % Rose Marie Podlogar SALES SOLUTIONS REPRESENTATIVE.TRANSPLANT COORDINATOR Work Phone: [facility] 11-17-2024 14:06-0400 Systolic blood pressure 122 mm[Hg] Rose Marie Podlogar SALES SOLUTIONS REPRESENTATIVE.TRANSPLANT COORDINATOR Work Phone: [facility] 11-05-2024 14:07-0400 Body mass index (BMI) [Ratio] 32.75 kg/m2 Kel Joya Jr., MD Work Phone: [facility] 11-05-2024 14:07-0400 Body weight 106.5 kg Kel Joya Jr., MD Work Phone: [facility] 11-05-2024 14:07-0400 Diastolic blood pressure 90 mm[Hg] Kel Joya Jr., MD Work Phone: [facility] 11-05-2024 14:07-0400 Heart rate 73 /min Kel Joya Jr., MD Work Phone: [facility] 11-05-2024 14:07-0400 Respiratory rate 16 /min Kel Joya Jr., MD Work Phone: [facility] 11-05-2024 14:07-0400 SaO2% (BldA) [Mass fraction] 97 % Kel Joya Jr., MD Work Phone: [facility] 11-05-2024 14:07-0400 Systolic blood pressure 130 mm[Hg] Kel Joya Jr., MD Work Phone: [facility] 09-28-2024 09:24-0400 Body mass index (BMI) [Ratio] 33.31 kg/m2 Rose Marie Podlogar SALES SOLUTIONS REPRESENTATIVE.TRANSPLANT COORDINATOR Work Phone: [facility] 09-28-2024 09:24-0400 Body weight 108.32 kg Rose Marie Podlogar SALES SOLUTIONS REPRESENTATIVE.TRANSPLANT COORDINATOR Work Phone: [facility] 09-28-2024 09:24-0400 Diastolic blood pressure 78 mm[Hg] Rose Marie Podlogar SALES SOLUTIONS REPRESENTATIVE.TRANSPLANT COORDINATOR Work Phone: [facility] 09-28-2024 09:24-0400 Heart rate 73 /min Rose Marie Podlogar SALES SOLUTIONS REPRESENTATIVE.TRANSPLANT COORDINATOR Work Phone: [facility] 09-28-2024 09:24-0400 Respiratory rate 18 /min Rose Marie Podlogar SALES SOLUTIONS REPRESENTATIVE.TRANSPLANT COORDINATOR Work Phone: [facility] 09-28-2024 09:24-0400 SaO2% (BldA) [Mass fraction] 98 % Rose Marie Podlogar SALES SOLUTIONS REPRESENTATIVE.TRANSPLANT COORDINATOR Work Phone: [facility] 09-28-2024 09:24-0400 Systolic blood pressure 124 mm[Hg] Rose Marie Podlogar SALES SOLUTIONS REPRESENTATIVE.TRANSPLANT COORDINATOR Work Phone: [facility] 08-03-2024 13:01-0400 Body height 180.3 cm Ismael Villavicencio MD Work Phone: [facility] 08-03-2024 13:01-0400 Body mass index (BMI) [Ratio] 32.08 kg/m2 Ismael Villavicencio MD Work Phone: [facility] 08-03-2024 13:01-0400 Body weight 104.33 kg Ismael Villavicencio MD Work Phone: [facility] 08-03-2024 13:01-0400 Diastolic blood pressure 84 mm[Hg] Ismael Villavicencio MD Work Phone: [facility] 08-03-2024 13:01-0400 Heart rate 80 /min Ismael Villavicencio MD Work Phone: [facility] 08-03-2024 13:01-0400 Systolic blood pressure 163 mm[Hg] Ismael Villavicencio MD Work Phone: [facility] 07-27-2024 09:58-0400 Body mass index (BMI) [Ratio] 33 kg/m2 Alpesh Hill MD Work Phone: [facility] 07-27-2024 09:58-0400 Body weight 110.04 kg Alpesh Hill MD Work Phone: [facility] 07-27-2024 09:58-0400 Diastolic blood pressure 76 mm[Hg] Alpesh Hill MD Work Phone: [facility] 07-27-2024 09:58-0400 Heart rate 72 /min Alpesh Hill MD Work Phone: [facility] 07-27-2024 09:58-0400 Respiratory rate 16 /min Alpesh Hill MD Work Phone: [facility] 07-27-2024 09:58-0400 SaO2% (BldA) [Mass fraction] 96 % Alpesh Hill MD Work Phone: [facility] 07-27-2024 09:58-0400 Systolic blood pressure 118 mm[Hg] Alpesh Hill MD Work Phone: [facility] 07-06-2024 12:40-0400 Body mass index (BMI) [Ratio] 33.6 kg/m2 Dianelys Ibarraer PA-C Work Phone: [facility] 07-06-2024 12:40-0400 Body weight 112.04 kg Dianelys Ibarraer PA-C Work Phone: [facility] 07-06-2024 12:40-0400 Diastolic blood pressure 82 mm[Hg] Dianelys Ibarraer PA-C Work Phone: [facility] 07-06-2024 12:40-0400 Heart rate 79 /min Dianelys Ibarraer PA-C Work Phone: [facility] 07-06-2024 12:40-0400 SaO2% (BldA) [Mass fraction] 97 % Dianelys Ibarraer PA-C Work Phone: [facility] 07-06-2024 12:40-0400 Systolic blood pressure 134 mm[Hg] Dianelys Ibarraer PA-C Work Phone: [facility] 05-19-2024 13:02-0500 Body mass index (BMI) [Ratio] 33.77 kg/m2 Alpesh Hill MD Work Phone: [facility] 05-19-2024 13:02-0500 Body weight 112.58 kg Alpesh Hill MD Work Phone: [facility] 05-19-2024 13:02-0500 Diastolic blood pressure 76 mm[Hg] Alpesh Hill MD Work Phone: [facility] 05-19-2024 13:02-0500 Heart rate 77 /min Alpesh Hill MD Work Phone: [facility] 05-19-2024 13:02-0500 Respiratory rate 16 /min Alpesh Hill MD Work Phone: [facility] 05-19-2024 13:02-0500 SaO2% (BldA) [Mass fraction] 99 % Alpesh Hill MD Work Phone: [facility] 05-19-2024 13:02-0500 Systolic blood pressure 116 mm[Hg] Alpesh Hill MD Work Phone: [facility] 04-30-2024 12:54-0500 Body mass index (BMI) [Ratio] 33.49 kg/m2 Kel Joya Jr., MD Work Phone: [facility] 04-30-2024 12:54-0500 Body weight 111.68 kg Kel Joya Jr., MD Work Phone: [facility] 04-30-2024 12:54-0500 Diastolic blood pressure 89 mm[Hg] Kel Joya Jr., MD Work Phone: [facility] 04-30-2024 12:54-0500 Heart rate 82 /min Kel Joya Jr., MD Work Phone: [facility] 04-30-2024 12:54-0500 SaO2% (BldA) [Mass fraction] 96 % Kel Joya Jr., MD Work Phone: [facility] 04-30-2024 12:54-0500 Systolic blood pressure 145 mm[Hg] Kel Joya Jr., MD Work Phone: [facility] 02-23-2024 09:21-0400 Body mass index (BMI) [Ratio] 32.6 kg/m2 Alpesh Hill MD Work Phone: [facility] 02-23-2024 09:21-0400 Body temperature 98.1 [degF] Alpesh Hill MD Work Phone: [facility] 02-23-2024 09:21-0400 Body weight 108.68 kg Alpesh Hill MD Work Phone: [facility] 02-23-2024 09:21-0400 Diastolic blood pressure 68 mm[Hg] Alpesh Hill MD Work Phone: [facility] 02-23-2024 09:21-0400 Heart rate 70 /min Alpesh Hill MD Work Phone: [facility] 02-23-2024 09:21-0400 Respiratory rate 16 /min Alpesh Hill MD Work Phone: [facility] 02-23-2024 09:21-0400 SaO2% (BldA) [Mass fraction] 97 % Alpesh Hill MD Work Phone: [facility] 02-23-2024 09:21-0400 Systolic blood pressure 108 mm[Hg] Alpesh Hill MD Work Phone: [facility] 02-02-2024 12:22-0400 Body mass index (BMI) [Ratio] 33.29 kg/m2 Rose Marie Podlogar SALES SOLUTIONS REPRESENTATIVE.TRANSPLANT COORDINATOR Work Phone: [facility] 02-02-2024 12:22-0400 Body weight 111 kg Rose Marie Podlogar SALES SOLUTIONS REPRESENTATIVE.TRANSPLANT COORDINATOR Work Phone: [facility] 02-02-2024 12:22-0400 Diastolic blood pressure 84 mm[Hg] Rose Marie Podlogar SALES SOLUTIONS REPRESENTATIVE.TRANSPLANT COORDINATOR Work Phone: [facility] 02-02-2024 12:22-0400 Heart rate 73 /min Rose Marie Podlogar SALES SOLUTIONS REPRESENTATIVE.TRANSPLANT COORDINATOR Work Phone: [facility] 02-02-2024 12:22-0400 Respiratory rate 18 /min Rose Marie Podlogar SALES SOLUTIONS REPRESENTATIVE.TRANSPLANT COORDINATOR Work Phone: [facility] 02-02-2024 12:22-0400 SaO2% (BldA) [Mass fraction] 99 % Rose Marie Podlogar SALES SOLUTIONS REPRESENTATIVE.TRANSPLANT COORDINATOR Work Phone: [facility] 02-02-2024 12:22-0400 Systolic blood pressure 118 mm[Hg] Rose Marie Podlogar SALES SOLUTIONS REPRESENTATIVE.TRANSPLANT COORDINATOR Work Phone: [facility] 01-02-2024 10:05-0400 Body mass index (BMI) [Ratio] 32.78 kg/m2 Rose Marie Podlogar SALES SOLUTIONS REPRESENTATIVE.TRANSPLANT COORDINATOR Work Phone: [facility] 01-02-2024 10:05-0400 Body weight 109.3 kg Rose Marie Podlogar SALES SOLUTIONS REPRESENTATIVE.TRANSPLANT COORDINATOR Work Phone: [facility] 01-02-2024 10:05-0400 Diastolic blood pressure 78 mm[Hg] Rose Marie Podlogar SALES SOLUTIONS REPRESENTATIVE.TRANSPLANT COORDINATOR Work Phone: [facility] 01-02-2024 10:05-0400 Heart rate 86 /min Rose Marie Podlogar SALES SOLUTIONS REPRESENTATIVE.TRANSPLANT COORDINATOR Work Phone: [facility] 01-02-2024 10:05-0400 Respiratory rate 18 /min Rose Marie Podlogar SALES SOLUTIONS REPRESENTATIVE.TRANSPLANT COORDINATOR Work Phone: [facility] 01-02-2024 10:05-0400 SaO2% (BldA) [Mass fraction] 97 % Rose Marie Podlogar SALES SOLUTIONS REPRESENTATIVE.TRANSPLANT COORDINATOR Work Phone: [facility] 01-02-2024 10:05-0400 Systolic blood pressure 112 mm[Hg] Rose Marie Podlogar SALES SOLUTIONS REPRESENTATIVE.TRANSPLANT COORDINATOR Work Phone: [facility] 12-03-2023 13:39-0400 Body mass index (BMI) [Ratio] 33.41 kg/m2 Rose Marie Podlogar SALES SOLUTIONS REPRESENTATIVE.TRANSPLANT COORDINATOR Work Phone: [facility] 12-03-2023 13:39-0400 Body temperature 97.11 [degF] Rose Marie Podlogar SALES SOLUTIONS REPRESENTATIVE.TRANSPLANT COORDINATOR Work Phone: [facility] 12-03-2023 13:39-0400 Body weight 111.4 kg Rose Marie Podlogar SALES SOLUTIONS REPRESENTATIVE.TRANSPLANT COORDINATOR Work Phone: [facility] 12-03-2023 13:39-0400 Diastolic blood pressure 70 mm[Hg] Rsoe Marie Podlogar SALES SOLUTIONS REPRESENTATIVE.TRANSPLANT COORDINATOR Work Phone: [facility] 12-03-2023 13:39-0400 Heart rate 80 /min Rose Marie Podlogar SALES SOLUTIONS REPRESENTATIVE.TRANSPLANT COORDINATOR Work Phone: [facility] 12-03-2023 13:39-0400 Respiratory rate 20 /min Rose Marie Podlogar SALES SOLUTIONS REPRESENTATIVE.TRANSPLANT COORDINATOR Work Phone: [facility] 12-03-2023 13:39-0400 Systolic blood pressure 110 mm[Hg] Rose Marie Johns SALES SOLUTIONS REPRESENTATIVE.TRANSPLANT COORDINATOR Work Phone: [facility] 11-06-2023 10:46-0400 Body mass index (BMI) [Ratio] 32.49 kg/m2 Alpesh Hill MD Work Phone: [facility] 11-06-2023 10:46-0400 Body temperature 97.9 [degF] Alpesh Hill MD Work Phone: [facility] 11-06-2023 10:46-0400 Body weight 108.32 kg Alpesh Hill MD Work Phone: [facility] 11-06-2023 10:46-0400 Diastolic blood pressure 68 mm[Hg] Alpesh Hill MD Work Phone: [facility] 11-06-2023 10:46-0400 Heart rate 71 /min Alpesh Hill MD Work Phone: [facility] 11-06-2023 10:46-0400 Respiratory rate 16 /min Alpesh Hill MD Work Phone: [facility] 11-06-2023 10:46-0400 SaO2% (BldA) [Mass fraction] 98 % Alpesh Hill MD Work Phone: [facility] 11-06-2023 10:46-0400 Systolic blood pressure 104 mm[Hg] Alpesh Hill MD Work Phone: [facility] 10-28-2023 13:01-0400 Body mass index (BMI) [Ratio] 32.27 kg/m2 Alpesh Hill MD Work Phone: [facility] 10-28-2023 13:01-0400 Body temperature 97 [degF] Alpesh Hill MD Work Phone: [facility] 10-28-2023 13:01-0400 Body weight 107.59 kg Alpesh Hill MD Work Phone: [facility] 10-28-2023 13:01-0400 Diastolic blood pressure 70 mm[Hg] Alpesh Hill MD Work Phone: [facility] 10-28-2023 13:01-0400 Heart rate 87 /min Alpesh Hill MD Work Phone: [facility] 10-28-2023 13:01-0400 Respiratory rate 16 /min Alpesh Hill MD Work Phone: [facility] 10-28-2023 13:01-0400 SaO2% (BldA) [Mass fraction] 93 % Alpesh Hill MD Work Phone: [facility] 10-28-2023 13:01-0400 Systolic blood pressure 122 mm[Hg] Alpesh Hill MD Work Phone: [facility] 08-05-2023 08:34-0400 Body weight 109.5 kg Alpesh Hill MD Work Phone: [facility] 08-05-2023 08:34-0400 Diastolic blood pressure 66 mm[Hg] Alpesh Hill MD Work Phone: [facility] 08-05-2023 08:34-0400 Heart rate 78 /min Alpesh Hill MD Work Phone: [facility] 08-05-2023 08:34-0400 Respiratory rate 16 /min Alpesh Hill MD Work Phone: [facility] 08-05-2023 08:34-0400 SaO2% (BldA) [Mass fraction] 99 % Alpesh Hill MD Work Phone: [facility] 08-05-2023 08:34-0400 Systolic blood pressure 126 mm[Hg] Alpesh Hill MD Work Phone: [facility] 07-21-2023 09:03-0400 Body weight 104.24 kg Alpesh Hill MD Work Phone: [facility] 07-21-2023 09:03-0400 Diastolic blood pressure 70 mm[Hg] Alpesh Hill MD Work Phone: [facility] 07-21-2023 09:03-0400 Heart rate 65 /min Alpesh Hill MD Work Phone: [facility] 07-21-2023 09:03-0400 Respiratory rate 16 /min Alpesh Hill MD Work Phone: [facility] 07-21-2023 09:03-0400 SaO2% (BldA) [Mass fraction] 97 % Alpesh Hill MD Work Phone: [facility] 07-21-2023 09:03-0400 Systolic blood pressure 102 mm[Hg] Alpesh Hill MD Work Phone: [facility] 04-02-2023 14:12-0500 Body height 182.6 cm Ros Emarie Podlogar SALES SOLUTIONS REPRESENTATIVE.TRANSPLANT COORDINATOR Work Phone: [facility] 04-02-2023 14:12-0500 Body temperature 95.9 [degF] Rose Marie Podlogar SALES SOLUTIONS REPRESENTATIVE.TRANSPLANT COORDINATOR Work Phone: [facility] 04-02-2023 14:12-0500 Body weight 111.68 kg Rose Marie Podlogar SALES SOLUTIONS REPRESENTATIVE.TRANSPLANT COORDINATOR Work Phone: [facility] 04-02-2023 14:12-0500 Diastolic blood pressure 80 mm[Hg] Rose Marie Podlogar SALES SOLUTIONS REPRESENTATIVE.TRANSPLANT COORDINATOR Work Phone: [facility] 04-02-2023 14:12-0500 Heart rate 68 /min Rose Marie Podlogar SALES SOLUTIONS REPRESENTATIVE.TRANSPLANT COORDINATOR Work Phone: [facility] 04-02-2023 14:12-0500 Respiratory rate 16 /min Rose Marie Podlogar SALES SOLUTIONS REPRESENTATIVE.TRANSPLANT COORDINATOR Work Phone: [facility] 04-02-2023 14:12-0500 SaO2% (BldA) [Mass fraction] 98 % Rose Marie Podlogar SALES SOLUTIONS REPRESENTATIVE.TRANSPLANT COORDINATOR Work Phone: [facility] 04-02-2023 14:12-0500 Systolic blood pressure 122 mm[Hg] Rose Marie Podlogar SALES SOLUTIONS REPRESENTATIVE.TRANSPLANT COORDINATOR Work Phone: [facility] 02-26-2023 09:53-0400 Body weight 110.13 kg Rose Marie Podlogar SALES SOLUTIONS REPRESENTATIVE.TRANSPLANT COORDINATOR Work Phone: [facility] 02-26-2023 09:53-0400 Diastolic blood pressure 84 mm[Hg] Rose Marie Podlogar SALES SOLUTIONS REPRESENTATIVE.TRANSPLANT COORDINATOR Work Phone: [facility] 02-26-2023 09:53-0400 Heart rate 84 /min Rose Marie Podlogar SALES SOLUTIONS REPRESENTATIVE.TRANSPLANT COORDINATOR Work Phone: [facility] 02-26-2023 09:53-0400 Respiratory rate 18 /min Rose Marie Podlogar SALES SOLUTIONS REPRESENTATIVE.TRANSPLANT COORDINATOR Work Phone: [facility] 02-26-2023 09:53-0400 SaO2% (BldA) [Mass fraction] 98 % Rose Marie Podlogar SALES SOLUTIONS REPRESENTATIVE.TRANSPLANT COORDINATOR Work Phone: [facility] 02-26-2023 09:53-0400 Systolic blood pressure 120 mm[Hg] Rose Marie Podlogar SALES SOLUTIONS REPRESENTATIVE.TRANSPLANT COORDINATOR Work Phone: [facility] 11-25-2022 09:03-0400 Body height 188 cm Effie Muñoz MD Work Phone: [facility] 11-25-2022 09:03-0400 Body temperature 97 [degF] Effie Muñoz MD Work Phone: [facility] 11-25-2022 09:03-0400 Body weight 114.76 kg Effie Muñoz MD Work Phone: [facility] 11-25-2022 09:03-0400 Diastolic blood pressure 64 mm[Hg] Effie Muñoz MD Work Phone: [facility] 11-25-2022 09:03-0400 Heart rate 91 /min Effie Muñoz MD Work Phone: [facility] 11-25-2022 09:03-0400 SaO2% (BldA) [Mass fraction] 100 % Effie Muñoz MD Work Phone: [facility] 11-25-2022 09:03-0400 Systolic blood pressure 132 mm[Hg] Effie Muñoz MD Work Phone: [facility] 11-05-2022 09:35-0400 Body weight 115.39 kg Alpesh Hill MD Work Phone: [facility] 11-05-2022 09:35-0400 Diastolic blood pressure 74 mm[Hg] Alpesh Hill MD Work Phone: [facility] 11-05-2022 09:35-0400 Heart rate 84 /min Alpesh Hill MD Work Phone: [facility] 11-05-2022 09:35-0400 Respiratory rate 16 /min Alpesh Hill MD Work Phone: [facility] 11-05-2022 09:35-0400 SaO2% (BldA) [Mass fraction] 94 % Alpesh Hill MD Work Phone: [facility] 11-05-2022 09:35-0400 Systolic blood pressure 122 mm[Hg] Alpesh Hill MD Work Phone: [facility] 10-15-2022 12:48-0400 Body weight 121.29 kg Alpesh Hill MD Work Phone: [facility] 10-15-2022 12:48-0400 Diastolic blood pressure 78 mm[Hg] Alpesh Hill MD Work Phone: [facility] 10-15-2022 12:48-0400 Heart rate 82 /min Alpesh Hill MD Work Phone: [facility] 10-15-2022 12:48-0400 Respiratory rate 16 /min Alpesh Hill MD Work Phone: [facility] 10-15-2022 12:48-0400 SaO2% (BldA) [Mass fraction] 98 % Alpesh Hill MD Work Phone: [facility] 10-15-2022 12:48-0400 Systolic blood pressure 128 mm[Hg] Alpesh Hill MD Work Phone: [facility] 07-16-2022 13:15-0400 Body height 188 cm Effie Muñoz MD Work Phone: [facility] 07-16-2022 13:15-0400 Body temperature 97.81 [degF] Effie Muñoz MD Work Phone: [facility] 07-16-2022 13:15-0400 Body weight 115.21 kg Effie Muñoz MD Work Phone: [facility] 07-16-2022 13:15-0400 Diastolic blood pressure 82 mm[Hg] Effie Muñoz MD Work Phone: [facility] 07-16-2022 13:15-0400 Heart rate 89 /min Effie Muñoz MD Work Phone: [facility] 07-16-2022 13:15-0400 SaO2% (BldA) [Mass fraction] 97 % Effie Muñzo MD Work Phone: [facility] 07-16-2022 13:15-0400 Systolic blood pressure 114 mm[Hg] Effie Muñoz MD Work Phone: [facility] 07-10-2022 11:27-0400 Body weight 114.31 kg Alpesh Hill MD Work Phone: [facility] 07-10-2022 11:27-0400 Diastolic blood pressure 72 mm[Hg] Alpesh Hill MD Work Phone: [facility] 07-10-2022 11:27-0400 Heart rate 77 /min Alpesh Hill MD Work Phone: [facility] 07-10-2022 11:27-0400 Respiratory rate 18 /min Alpesh Hill MD Work Phone: [facility] 07-10-2022 11:27-0400 SaO2% (BldA) [Mass fraction] 98 % Alpesh Hill MD Work Phone: [facility] 07-10-2022 11:27-0400 Systolic blood pressure 106 mm[Hg] Alpesh Hill MD Work Phone: [facility] 01-04-2022 11:13-0400 Body temperature 98.6 [degF] Dr. Jos eR Hill Work Phone: [facility] Work Phone: 01-04-2022 11:13-0400 Diastolic blood pressure 94 mm[Hg] Dr. Jose R Hill Work Phone: [facility] Work Phone: 01-04-2022 11:13-0400 Heart rate 82 /min Dr. Jose R Hill Work Phone: [facility] Work Phone: 01-04-2022 11:13-0400 Respiratory rate 16 /min Dr. Jose R Hill Work Phone: [facility] Work Phone: 01-04-2022 11:13-0400 SaO2% (BldA) [Mass fraction] 92 % Dr. Jose R Hill Work Phone: [facility] Work Phone: 01-04-2022 11:13-0400 Systolic blood pressure 122 mm[Hg] Dr. Jose R Hill Work Phone: [facility] Work Phone: 01-04-2022 10:30-0400 Inhaled oxygen flow rate 2 L/min Dr. Jose R Hill Work Phone: [facility] Work Phone: 01-04-2022 06:29-0400 Body height 187.[address] Jose R Hill Work Phone: [facility] Work Phone: 01-04-2022 06:29-0400 Body mass index (BMI) [Ratio] 31.1 kg/m2 Dr. Jose R Hill Work Phone: [facility] Work Phone: 01-04-2022 06:29-0400 Body weight [address] Jose R Hill Work Phone: [facility] Work Phone: 12-20-2021 14:29-0400 Body weight 118.3 kg Alpesh Hill MD Work Phone: [facility] 12-20-2021 14:29-0400 Diastolic blood pressure 72 mm[Hg] Alpesh Hill MD Work Phone: [facility] 12-20-2021 14:29-0400 Heart rate 84 /min Alpesh Hill MD Work Phone: [facility] 12-20-2021 14:29-0400 Respiratory rate 16 /min Alpesh Hill MD Work Phone: [facility] 12-20-2021 14:29-0400 SaO2% (BldA) [Mass fraction] 93 % Alpesh Hill MD Work Phone: [facility] 12-20-2021 14:29-0400 Systolic blood pressure 110 mm[Hg] Alpesh Hill MD Work Phone: [facility] 12-19-2021 13:27-0400 Body height 187.[address] Jose R Hill Work Phone: [facility] Work Phone: 12-19-2021 13:27-0400 Body mass index (BMI) [Ratio] 33.6 kg/m2 Dr. Jose R Hill Work Phone: [facility] Work Phone: 12-19-2021 13:27-0400 Body temperature 97.5 [degF] Dr. Jose R Hill Work Phone: [facility] Work Phone: 12-19-2021 13:27-0400 Body weight 118.[address] Jose R Hill Work Phone: [facility] Work Phone: 12-19-2021 13:27-0400 Diastolic blood pressure 80 mm[Hg] Dr. Jose R Hill Work Phone: [facility] Work Phone: 12-19-2021 13:27-0400 Heart rate 56 /min Dr. Jose R Hill Work Phone: [facility] Work Phone: 12-19-2021 13:27-0400 Respiratory rate 16 /min Dr. Jose R Hill Work Phone: [facility] Work Phone: 12-19-2021 13:27-0400 SaO2% (BldA) [Mass fraction] 96 % Dr. Jose R Hill Work Phone: [facility] Work Phone: 12-19-2021 13:27-0400 Systolic blood pressure 118 mm[Hg] Dr. Jose R Hill Work Phone: [facility] Work Phone: 12-13-2021 16:16-0400 Diastolic blood pressure 94 mm[Hg] [facility] Work Phone: 12-13-2021 16:16-0400 Systolic blood pressure 138 mm[Hg] [facility] Work Phone: 12-13-2021 13:33-0400 Body height 187.96 cm [facility] Work Phone: 12-13-2021 13:33-0400 Body mass index (BMI) [Ratio] 34.2 kg/m2 [facility] Work Phone: 12-13-2021 13:33-0400 Body temperature 97.2 [degF] [facility] Work Phone: 12-13-2021 13:33-0400 Body weight 121 kg [facility] Work Phone: 12-13-2021 13:33-0400 Heart rate 88 /min [facility] Work Phone: 12-13-2021 13:33-0400 Respiratory rate 16 /min [facility] Work Phone: 12-13-2021 13:33-0400 SaO2% (BldA) [Mass fraction] 96 % [facility] Work Phone: 12-13-2021 12:48-0400 Body temperature 97.59 [degF] Amber Tucker APRN.TRANSPLANT COORDINATOR Work Phone: [facility] 12-13-2021 12:48-0400 Body weight 121.66 kg Amber Tucker APRN.TRANSPLANT COORDINATOR Work Phone: [facility] 12-13-2021 12:48-0400 Diastolic blood pressure 78 mm[Hg] Amber Tucker APRN.TRANSPLANT COORDINATOR Work Phone: [facility] 12-13-2021 12:48-0400 Heart rate 94 /min Amber Tucker APRN.TRANSPLANT COORDINATOR Work Phone: [facility] 12-13-2021 12:48-0400 Respiratory rate 18 /min Amber Tucker APRN.TRANSPLANT COORDINATOR Work Phone: [facility] 12-13-2021 12:48-0400 SaO2% (BldA) [Mass fraction] 97 % Amber Tucker APRN.TRANSPLANT COORDINATOR Work Phone: [facility] 12-13-2021 12:48-0400 Systolic blood pressure 124 mm[Hg] Amber Tucker APRN.TRANSPLANT COORDINATOR Work Phone: [facility] 09-26-2021 14:14-0400 Body weight 119.3 kg Alpesh Hill MD Work Phone: [facility] 09-26-2021 14:14-0400 Diastolic blood pressure 80 mm[Hg] Alpesh Hill MD Work Phone: [facility] 09-26-2021 14:14-0400 Heart rate 78 /min Alpesh Hill MD Work Phone: [facility] 09-26-2021 14:14-0400 Respiratory rate 16 /min Alpesh Hill MD Work Phone: [facility] 09-26-2021 14: Systolic blood pressure 124 mm[Hg] Alpesh Hill MD Work Phone: [facility] Encounters Encounter Date Encounter Type Care Provider Facility Start: 03-07-2025 ambulatory KEL JOYA JR Faci lity:[facility] Start: 02-10-2025 End: 02-10-2025 ambulatory Jose R Hill Facility:[facility] Start: 02-07-2025 End: 02-07-2025 ambulatory Jose R Hill Facility:[facility] Start: 02-02-2025 ambulatory ALPESH HILL Facility:[facility] Start: 01-11-2025 End: 01-11-2025 ambulatory Shauna Lupe Facility:[facility] Start: 01-06-2025 End: 01-06-2025 Refill Alpesh Hill MD Work Phone: [address] [place] [address] Comment on above: Refill Request Start: 12-28-2024 End: 12-28-2024 Orders Only Aide Arthur MD Work Phone: [facility] Comment on above: Chronic kidney disea se, stage 3a (HCC); Anemia, unspecified Start: 12-20-2024 End: 12-20-2024 ambulatory ALPESH HILL Facility:[facility] Start: 11-24-2024 End: 11-25-2024 ambulatory KEL JOYA JR Facility:[facility] Start: 11-24-2024 End: 11-24-2024 ambulatory TESSIE DEAN Facility:[facility] Start: 11-24-2024 End: 11-24-2024 ambulatory ALPESH HILL Facility:[facility] Start: 11-18-2024 End: 11-18-2024 Follow-up encounter Rose Marie Johns APRN.CNP Work Phone: [facility] Comment on above: Results Start: 11-18-2024 End: 11-18-2024 ambulatory Martin Daniel Facility:[facility] Start: 11-17-2024 End: 11-17-2024 Patient encounter procedure Rose Marie Johns APRN.CNP Work Phone: [facility] Comment on above: Mixed hyperlipidemia (Primary Dx); Stage 3a chronic kidney disease (HCC); Gastroesophageal reflux disease, unspecified whether esophagitis present; Bipolar affective disorder, current episode mixed, current episode severity unspecified (HCC); Cerebral hemorrhage (HCC); Cerebral amyloid angiopathy (CODE); Cognitive decline Start: 11-17-2024 End: 11-17-2024 ambulatory ALPESH HILL Facility:[facility] Start: 11-08-2024 End: 11-08-2024 Follow-up encounter Kel Joya MD Work Phone: Neurology Comment on above: Results Start: 11-05-2024 End: 11-05-2024 ambulatory KEL JOYA JR Facility:[facility] Start: 11-05-2024 End: 11-05-2024 Patient encounter procedure Kel Joya MD Work Phone: Neurology Comment on above: Encounter for long-t erm (current) use of medications (Primary Dx); Cognitive decline; Abnormal finding on MRI of brain; Cerebral amyloid angiopathy (CODE); 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 current use of 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; Malaise and fatigue; Spinal stenosis of lumbar region, unspecified whether neurogenic claudication present; Neuropathy; Snoring; Daytime sleepiness; Sleep apnea-like behavior; MAXIMUS (obstructive sleep apnea) Start: 11-05-2024 End: 11-05-2024 ambulatory KEL JOYA JR Facility:[facility] Start: 11-01-2024 End: 11-01-2024 Patient encounter procedure Tessie Dean Work Phone: Podiatry Comment on above: Neuropathy (Primary Dx); Diminished pulses in lower extremity; Abrasion Start: 11-01-2024 End: 11-01-2024 [facility] Start: 10-16-2024 End: 10-18-2024 Refill Dianelys Reynolds PA-C Work Phone: Neurology Comment on above: Refill Request Start: 09-28-2024 End: 09-29-2024 Follow-up encounter Leidy Chino GÓMEZ [facility] Start: 09-28-2024 End: 09-28-2024 ambulatory Shauna Andrade Facility:[facility] Start: 09-28-2024 End: 09-28-2024 Subsequent hospital visit by physician Esdras [facility] Work Phone: Radiology Comment on above: Foot pain, left [M79 .[id number]] Start: 09-28-2024 End: 09-28-2024 Patient encounter procedure Rose Marie Johns SALES SOLUTIONS REPRESENTATIVE.TRANSPLANT COORDINATOR Work Phone: [facility] Comment on above: Foot pain, left (Ashley tee Dx) Start: 09-28-2024 End: 09-28-2024 ambulatory ALPESH HILL Facility:[facility] Start: 09-16-2024 End: 09-16-2024 ambulatory Martin Daniel Facility:[facility] Start: 09-09-2024 End: 09-09-2024 ambulatory Lou O'Lazaro PT [facility] Comment on above: Spinal stenosis of l umbar region without neurogenic claudication (Primary Dx); Pain in both lower extremities Start: 09-02-2024 End: 09-02-2024 ambulatory Lou O'Lazaro PT [facility] Comment on above: Spinal stenosis of l umbar region without neurogenic claudication (Primary Dx); Pain in both lower extremities Start: 08-23-2024 End: 09-06-2024 ambulatory Alpesh Hill MD Work Phone: [facility] Comment on above: Caregiver Leave FMLA Form Completion Start: 08-19-2024 End: 08-19-2024 ambulatory DIANELYS REYNOLDS Facility:[facility] Start: 08-18-2024 ambulatory ALPESH HILL Facility:[facility] Start: 08-12-2024 End: 08-12-2024 ambulatory Lou O'Lazaro PT [place] Comment on above: Spinal stenosis of l umbar region without neurogenic claudication (Primary Dx); Pain in both lower extremities Start: 08-04-2024 End: 08-04-2024 ambulatory Lou O'Lazaro PT [place] [facility] Comment on above: Spinal stenosis of l umbar region, unspecified whether neurogenic claudication present (Primary Dx); Pain in both lower extremities Start: 08-03-2024 End: 08-03-2024 Patient encounter procedure Ismael Villavicencio MD Work Phone: Cerebrovascular Comment on above: Cerebral hemorrhage (HCC); Abnormal finding on MRI of brain; Cognitive decline; Cerebral amyloid angiopathy (CODE); Balance problems; Bipolar disorder in partial remission, most recent episode unspecified type (HCC); Stage 3 chronic kidney disease, unspecified whether stage 3a or 3b CKD (HCC); Essential (primary) hypertension Start: 08-03-2024 End: 08-03-2024 ambulatory ALPESH HILL Facility:[facility] Start: 07-29-2024 End: 07-30-2024 ambulatory Alpesh Hill MD Work Phone: [facility] Comment on above: Clarification on D3 dosing Start: 07-27-2024 End: 07-27-2024 Patient encounter procedure Alpesh Hill MD Work Phone: [facility] Comment on above: Spinal stenosis of l umbar region, unspecified whether neurogenic claudication present (Primary Dx); Bilateral leg pain Start: 07-27-2024 End: 07-27-2024 ambulatory ALPESH HILL Facility:[facility] Start: 07-26-2024 End: 07-26-2024 Follow-up encounter Alpesh Hill MD Work Phone: [facility] Start: 07-23-2024 End: 09-22-2024 Follow-up encounter Dianelys Reynolds PA-C Work Phone: Neurology Start: 07-21-2024 End: 07-27-2024 Telephone encounter Dianelys Reynolds PA-C Work Phone: Neurology Comment on above: Results Start: 07-21-2024 End: 07-21-2024 ambulatory DIANELYS EARLVILLEDEBBIE Facility:[facility] Start: 07-20-2024 End: 07-20-2024 ambulatory DIANELYS EARLVILLEDEBBIE Facility:[facility] Start: 07-20-2024 End: 07-20-2024 Follow-up encounter Dianelys Reynolds PA-C Work Phone: Neurology Start: 07-20-2024 End: 07-20-2024 Subsequent hospital visit by physician [facility] (I-Stat/1.5t) Work Phone: Radiology Comment on above: Spinal stenosis of l umbar region, unspecified whether neurogenic claudication present [M48.061] Start: 07-19-2024 End: 07-19-2024 ambulatory DIANELYS REYNOLDS Neurology Start: 07-19-2024 End: 07-19-2024 Patient encounter procedure Emg 2 Neur Austin Mc (Max Weight: 850) Neurology Start: 07-15-2024 End: 07-15-2024 Patient encounter procedure Eeg Neur Copeland Work Phone: Neurology Comment on above: Seizure (HCC) Start: 07-15-2024 End: 07-15-2024 ambulatory KEL JOYA JR Facility:[facility] Start: 07-14-2024 End: 07-14-2024 ambulatory Corrina Jeff [facility] Comment on above: Balance problems (Pr imary Dx); Cognitive decline Start: 07-12-2024 End: 07-12-2024 Refill Paula Mabry [address] Comment on above: Refill Request Start: 07-09-2024 ambulatory SELF Facility:[facility] Start: 07-06-2024 End: 07-06-2024 Patient encounter procedure Dianelys Reynolds PA-C Work Phone: Neurology Comment on above: Spinal stenosis of l umbar region, unspecified whether neurogenic claudication present (Primary Dx); Pain in both lower extremities Start: 07-06-2024 End: 07-06-2024 ambulatory DIANELYS EARLVILLEDEBBIE Facility:[facility] Start: 07-05-2024 End: 07-05-2024 [facility] Start: 07-04-2024 End: 07-05-2024 ambulatory Kel Joya MD Work Phone: Neurology Comment on above: Worsening symptoms Start: 06-22-2024 End: 06-22-2024 ambulatory [facility] Comment on above: Cognitive decline (P rimary Dx); Cerebral hemorrhage (HCC); Hereditary cerebral amyloid angiopathy (HCC) (HCC); Cerebral amyloid angiopathy (CODE) Balance problems (Pr imary Dx); Cognitive decline Start: 06-15-2024 End: 06-15-2024 ambulatory [facility] Comment on above: Cognitive decline (P rimary Dx); Cerebral hemorrhage (HCC); Hereditary cerebral amyloid angiopathy (HCC) (HCC); Cerebral amyloid angiopathy (CODE) Start: 06-15-2024 End: 06-15-2024 ambulatory Shaji Younger [facility] Comment on above: Balance problems (Pr imary Dx); Cognitive decline Start: 06-10-2024 End: 06-11-2024 ambulatory Kel Joya MD Work Phone: Neurology Comment on above: New symptoms Start: 06-08-2024 End: 06-08-2024 ambulatory [facility] Therapy Comment on above: Cognitive decline (P rimary Dx) Start: 06-08-2024 End: 06-08-2024 ambulatory Kavon Moreno [employer] Work Phone: [facility] Comment on above: Cognitive decline (P rimary Dx); Balance problems Start: 06-01-2024 End: 06-01-2024 ambulatory [facility] Comment on above: Cognitive decline (P rimary Dx); Cerebral hemorrhage (HCC); Hereditary cerebral amyloid angiopathy (HCC) (HCC); Cerebral amyloid angiopathy (CODE) Cognitive decline (P rimary Dx); Balance problems Start: 05-26-2024 End: 05-26-2024 ambulatory Kavon Moreno FIELD FOREMAN Work Phone: [facility] Comment on above: Cognitive decline (P rimary Dx); Balance problems Start: 05-24-2024 End: 05-24-2024 ambulatory Jose R Hill Facility:[facility] Start: 05-20-2024 End: 05-24-2024 Telephone encounter Alpesh Hill MD Work Phone: [facility] Comment on above: Results Start: 05-19-2024 End: 05-19-2024 ambulatory ALPESH HILL Facility:[facility] Start: 05-19-2024 End: 05-19-2024 ambulatory ALPESH HILL Facility:[facility] Start: 05-19-2024 End: 05-19-2024 Patient encounter procedure Alpesh Hill MD Work Phone: [facility] Comment on above: Annual wellness visi t (Primary Dx); Penile pain; Testicular pain, right; Cerebral hemorrhage (HCC); Balance problems; Essential hypertension; Mixed hyperlipidemia; Stage 3a chronic kidney disease (HCC); Gastroesophageal reflux disease, unspecified whether esophagitis present; Anemia, unspecified type; Obesity, Class I, BMI 30-34.9; Bipolar affective disorder, current episode mixed, current episode severity unspecified (HCC); Vitamin D deficiency Start: 05-18-2024 End: 05-18-2024 ambulatory KEL JOYA JR Facility:[facility] Start: 05-18-2024 End: 05-18-2024 ambulatory Corrina Jeff [facility] Comment on above: Cognitive decline; Balance problems Cognitive decline (P rimary Dx); Cerebral hemorrhage (HCC); Hereditary cerebral amyloid angiopathy (HCC) (HCC); Cerebral amyloid angiopathy (CODE) Start: 04-30-2024 End: 04-30-2024 Patient encounter procedure Kel Joya MD Work Phone: Neurology Comment on above: Cerebral hemorrhage (HCC) (Primary Dx); Abnormal finding on MRI of brain; Cognitive decline; Cerebral amyloid angiopathy (CODE); Balance problems Start: 04-30-2024 End: 04-30-2024 ambulatory KEL JOYA JR Facility:[facility] Start: 03-27-2024 End: 03-29-2024 Refill Alpesh Hill MD Work Phone: [address] [place] [address] Comment on above: Refill Request Start: 02-23-2024 End: 02-23-2024 Patient encounter procedure Alpesh Hill MD Work Phone: [facility] Comment on above: Bilateral impacted c erumen (Primary Dx); Ear pain, bilateral Start: 02-20-2024 End: 03-02-2024 ambulatory Alpesh Hill MD Work Phone: [facility] Comment on above: Caregiver Leave FMLA Form Completion Start: 02-20-2024 End: 02-20-2024 Telephone encounter Alpesh Hill MD Work Phone: [facility] Start: 02-18-2024 End: 02-18-2024 Telephone encounter Alpesh Hill MD Work Phone: [facility] Comment on above: Fax Records Patient Update Start: 02-06-2024 End: 02-06-2024 Subsequent hospital visit by physician Mri [facility] (I-Stat/1.5t) Work Phone: Radiology Comment on above: Positive Romberg gm t [R29.818] Start: 02-02-2024 End: 02-02-2024 Patient encounter procedure Rose Marie Johns APRN.TRANSPLANT COORDINATOR Work Phone: [facility] Comment on above: Lightheadedness (Ashley tee Dx); Blurry vision; Speech disturbance, unspecified type Start: 01-19-2024 End: 01-19-2024 Refill Alpesh Hill MD Work Phone: [facility] [place] Comment on above: Refill Request Start: 01-08-2024 End: 01-13-2024 Telephone encounter Rose Marie Johns APRN.TRANSPLANT COORDINATOR Work Phone: [facility] Comment on above: External Referrals/r esources (MRI, MRAs) Start: 01-02-2024 End: 01-27-2024 Telephone encounter Alpesh Hill MD Work Phone: [facility] Comment on above: Sister questions Start: 01-02-2024 End: 01-02-2024 Patient encounter procedure Rose Marie Johns APRN.TRANSPLANT COORDINATOR Work Phone: [facility] Comment on above: Positive Romberg gm t (Primary Dx); Unsteady gait; Essential hypertension; Dizziness Start: 12-17-2023 End: 12-17-2023 ambulatory Samara Velasquez RN NURSE LOADING DOCK HELPER Comment on above: Chest Pain Encounter for medica l assessment (Primary Dx) Start: 12-17-2023 End: 12-17-2023 Patient encounter status Hiwot Purcell MD Work Phone: [facility] Work Phone: Start: 12-17-2023 End: 12-17-2023 Telemedicine consultation with patient Hiwot Purcell MD Work Phone: [facility] Start: 12-09-2023 End: 12-15-2023 Telephone encounter Alpesh Hill MD Work Phone: [facility] Comment on above: Results, Lab Start: 12-04-2023 End: 12-17-2023 Telephone encounter Alpesh Hill MD Work Phone: [facility] Comment on above: Results Start: 12-03-2023 End: 12-03-2023 Patient encounter procedure Rose Marie Johns APRN.TRANSPLANT COORDINATOR Work Phone: [facility] Comment on above: Chest wall discomfor t (Primary Dx); Dry mouth Start: 11-07-2023 Telephone encounter Jose R Hill MD Work Phone: [facility] Comment on above: Results Start: 11-06-2023 End: 11-06-2023 Subsequent hospital visit by physician [facility] Work Phone: Radiology Comment on above: Lymphadenopathy, cer vical [R59.0] Start: 11-06-2023 End: 11-06-2023 Patient encounter procedure Alpesh Hill MD Work Phone: [facility] [place] Comment on above: Viral bronchitis (Pr imary Dx); URI with cough and congestion; Lymphadenopathy, cervical; Localized enlarged lymph nodes Start: 10-28-2023 Telephone encounter Jose R Hill MD Work Phone: [facility] [place] Comment on above: Patient Update Start: 10-28-2023 End: 10-28-2023 Subsequent hospital visit by physician X[facility] Work Phone: Radiology Comment on above: Viral bronchitis [J2 0.8] Start: 10-28-2023 End: 10-28-2023 Patient encounter procedure Alpesh Hill MD Work Phone: [facility] Comment on above: Viral bronchitis (Pr imary Dx); URI with cough and congestion; Lymphadenopathy, cervical Start: 08-26-2023 Telephone encounter Jose R Hill MD Work Phone: [facility] [place] Comment on above: Results Start: 08-05-2023 End: 08-05-2023 Patient encounter procedure Alpesh Hill MD Work Phone: [facility] Comment on above: Episodic lightheaded ness (Primary Dx); Unsteady gait when walking; Essential hypertension; BRBPR (bright red blood per rectum) Start: 07-25-2023 Telephone encounter Jose R Hill MD Work Phone: [facility] Comment on above: Results; Patient Upd ate Start: 07-22-2023 Telephone encounter Jose R Hill MD Work Phone: [facility] Comment on above: Results Start: 07-21-2023 End: 07-21-2023 Patient encounter procedure Alpesh Hill MD Work Phone: [facility] Comment on above: Episodic lightheaded ness (Primary Dx); Unsteady gait when walking; Shaking Start: 06-09-2023 Refill Paula Mabry PSS [facility] Comment on above: Refill Request Start: 04-09-2023 Refill Alpesh Hill MD Work Phone: [facility] [place] Start: 04-02-2023 End: 04-02-2023 Patient encounter procedure Rose Marie Johns APRN.CNP Work Phone: [facility] Comment on above: Annual physical exam (Primary Dx); Chronic kidney disease, stage 3a ([facility]); Mixed hyperlipidemia; Essential hypertension; Gastroesophageal reflux disease, unspecified whether esophagitis present; Allergy to environmental factors; Bipolar affective disorder, current episode mixed, current episode severity unspecified ([facility]) Start: 03-24-2023 End: 03-24-2023 Nursing evaluation of patient and report Nurse Card Admin [facility] Work Phone: Cardiology Comment on above: Chest pain, unspecif ied type Start: 03-18-2023 ambulatory Nurse Card Adm in [facility] Work Phone: Cardiology Comment on above: Stress Test Instruct ions for 03/24/23 Start: 03-18-2023 E-mail encounter janene m caregiver Nurse Card Admin [facility] Work Phone: [facility] Start: 03-10-2023 Refill Rose Marie Johns SALES SOLUTIONS REPRESENTATIVE.TRANSPLANT COORDINATOR Work Phone: [facility] [place] Comment on above: Refill Request Start: 02-26-2023 End: 02-26-2023 Patient encounter procedure Rose Marie Johns APRN.TRANSPLANT COORDINATOR Work Phone: [facility] [place] Comment on above: Concern about hernia without diagnosis (Primary Dx) Start: 01-24-2023 Refill Alpesh Hill MD Work Phone: [facility] [place] Comment on above: Refill Request Start: 12-09-2022 Refill Paula Mabry PSS [facility] Comment on above: Refill Request Start: 11-25-2022 End: 11-25-2022 Patient encounter procedure Effie Muñoz MD Work Phone: General Surgery Comment on above: Hemorrhoids, interna l, with bleeding (Primary Dx) Start: 11-05-2022 End: 11-05-2022 Subsequent hospital visit by physician X[facility] Work Phone: Radiology Comment on above: Chest pain, unspecif ied type [R07.9] Start: 11-05-2022 End: 11-05-2022 Patient encounter procedure Alpesh Hill MD Work Phone: [facility] Comment on above: Chest pain, unspecif ied type (Primary Dx) Start: 10-21-2022 Telephone encounter Jose R Hill MD Work Phone: [facility] Comment on above: Results Start: 10-15-2022 End: 10-15-2022 Subsequent hospital visit by physician Esdras [facility] Work Phone: Radiology Comment on above: Acute bilateral knee pain [M25.561, M25.562] Start: 10-15-2022 End: 10-15-2022 Patient encounter procedure Alpesh Hill MD Work Phone: [facility] Comment on above: Acute bilateral knee pain (Primary Dx); Fall, initial encounter; Primary osteoarthritis of both knees; Injury of right thigh, initial encounter Start: 10-14-2022 Refill Alpesh Hill MD Work Phone: [facility] Comment on above: Refill Request Start: 07-17-2022 Orders Only Effie salinas MD Work Phone: Ambulatory Surgery Start: 07-16-2022 End: 07-16-2022 Patient encounter procedure Effie Muñoz MD Work Phone: General Surgery Comment on above: BRBPR (bright red bl ood per rectum); External hemorrhoids Start: 07-11-2022 Telephone encounter Jose R Hill MD Work Phone: [facility] Comment on above: Results Start: 07-10-2022 End: 07-10-2022 Patient encounter procedure Alpesh Hill MD Work Phone: [facility] Comment on above: BRBPR (bright red bl ood per rectum) (Primary Dx); External hemorrhoids; Rectal polyp; Chronic constipation; Bipolar affective disorder, current episode mixed, current episode severity unspecified (HCC); Chronic kidney disease, stage 3a (HCC); Type 2 diabetes mellitus without complications (HCC) Start: 06-17-2022 Refill Alpesh Hill MD Work Phone: [facility] Comment on above: Refill Request Start: 01-10-2022 Refill Alissawes Hallman [facility] Comment on above: Refill Request Start: 01-04-2022 Non-patient / Non-visit Dr. Sridevi Hill Work Phone: [facility] Start: 01-04-2022 End: 01-04-2022 Admission to same day surgery center [facility] Jose R [facility] Start: 01-04-2022 End: 01-04-[address] Jose R Hill Work Phone: [facility] Work Phone: Start: 12-28-2021 Telephone encounter Jose R Hill MD Work Phone: [facility] Comment on above: EKG results Start: 12-20-2021 End: 12-20-2021 Patient encounter procedure Alpesh Hill MD Work Phone: [facility] Comment on above: Generalized abdomina l pain (Primary Dx); Gallstones; Pre-operative clearance Start: 12-20-2021 End: 12-20-2021 Preoperative state Alpesh Hill MD Work Phone: [facility] Start: 12-19-2021 End: 12-19-[address] Jose R Hill Work Phone: [facility] Work Phone: Start: 12-19-2021 End: 12-19-[address] Jose R Hill Work Phone: [facility] Start: 12-13-2021 End: 12-13-2021 Emergency department patient visit [facility] Start: 12-13-2021 End: 12-13-2021 Patient encounter procedure Amber Tucker APRN.CNP Work Phone: [facility] Comment on above: Generalized abdomina l pain (Primary Dx) Start: 09-26-2021 End: 09-26-2021 Patient encounter procedure Alpesh Hill MD Work Phone: [facility] Comment on above: Essential hypertensi on (Primary Dx); Mixed hyperlipidemia; Bipolar affective disorder, current episode mixed, current episode severity unspecified (HCC); Stage 3 chronic kidney disease, unspecified whether stage 3a or 3b CKD (HCC); Gastroesophageal reflux disease, unspecified whether esophagitis present; Allergy to environmental factors; Obesity, Class I, BMI 30-34.9 Start: 09-19-2021 Telephone encounter Rose Marie goel APRN.TRANSPLANT COORDINATOR Work Phone: [facility] Comment on above: Results (labs) Start: 05-11-2021 Telephone encounter Jose R Hill MD Work Phone: [facility] Comment on above: Blood Pressure Check Start: 10-25-2020 End: 10-25-2020 Subsequent hospital visit by physician Xr [facility] Work Phone: Radiology Comment on above: Pain of left thumb [ M79.645] Procedures Date Procedure Procedure Detail Performing Clinician Start: 09-28-2024 Radex foot complete minimum 3 views Rose Marie Johns APRN.KUSH Work Phone: Start: 07-20-2024 Mri spinal canal lumbar w/o contrast material Dianelys Reynolds PA-C Work Phone: Start: 07-19-2024 Nerve conduction studies 5-6 studies Dianelys Reynolds PA-C Work Phone: Start: 07-15-2024 Electroencephalogram w/rec awake&drowsy Kel Joya MD Work Phone: Start: 05-19-2024 Urnls dip stick/tablet rgnt auto w/o microscopy Alpesh Hill MD Work Phone: Start: 03-03-2024 Lipid 1996 panel - Serum or Plasma Alpesh Hill MD Work Phone: Start: 02-06-2024 Mra head w/o contrst material Rose Marie goel APRN.TRANSPLANT COORDINATOR Work Phone: Start: 12-05-2023 Lipid 1996 panel - Serum or Plasma Alpesh Hill MD Work Phone: Start: 11-06-2023 Us soft tissue head & neck real time imge docm Alpesh Hill MD Work Phone: Start: 10-28-2023 Radiologic exam chest 2 views Jose R Hill MD Work Phone: Start: 05-03-2023 Lipid 1996 panel - Serum or Plasma Paula Mabry PSS Start: 11-05-2022 Radiologic exam chest 2 views Jose R Hill MD Work Phone: Start: 10-15-2022 Radiologic exam knee complete 4/more views Alpesh Hill MD Work Phone: Start: 10-09-2022 Lipid 1996 panel - Serum or Plasma Alpesh Hill MD Work Phone: Start: 01-04-[address] Jose R logan Work Phone: Start: 01-04-[address] Jose R larson Work Phone: Start: 01-04-2022 Total cholecystectomy and exploration of common bile duct Dr. Jose R Hill Work Phone: Start: 12-20-2021 Ecg routine ecg w/least 12 lds w/i&r Alpesh Hill MD Work Phone: Start: 12-13-2021 US scan of gallbladder Start: 12-13-2021 CT of abdomen and pelvis without contrast Start: 10-25-2020 Radex fingr minimum 2 views Rose Marie israel SALES SOLUTIONS REPRESENTATIVE.TRANSPLANT COORDINATOR Work Phone: Start: 09-22-2020 Adult depression screening assessment Rose Marie Johns SALES SOLUTIONS REPRESENTATIVE.TRANSPLANT COORDINATOR Work Phone: Start: 06-15-2014 Colonoscopy Rose Marie Johns SALES SOLUTIONS REPRESENTATIVE.TRANSPLANT COORDINATOR Work Phone: Plan of Treatment Date Care Activity Detail Author Start: 2038 RSV Vaccine (1 - 1-dose 75+ series) RSV Vaccine (1 - 1-dose 75+ series) [facility] Start: 03-03-2029 Lipid panel Lipid Screening [facility] Start: 12-04-2028 Lipid panel Lipid Screening [facility] Start: 05-03-2028 Lipid panel Lipid Screening [facility] Start: 01-18-2028 Urine microalbumin profile [facility] Start: 11-18-2027 Diabetes Screening Diabetes Screening [facility] Start: 10-10-2027 Lipid 1996 panel - Serum or Plasma Lipid Screening [facility] Start: 10-10-2027 Lipid panel Lipid Screening [facility] Start: 10-10-2027 LIPID SCREEN LIPID SCREEN [facility] Start: 06-24-2027 LIPID SCREEN LIPID SCREEN [facility] Start: 05-19-2027 Diabetes Screening Diabetes Screening [facility] Start: 03-03-2027 Diabetes Screening Diabetes Screening [facility] Start: 01-10-2027 LIPID SCREEN LIPID SCREEN [facility] Start: 12-04-2026 Diabetes Screening Diabetes Screening [facility] Start: 09-20-2026 LIPID SCREEN LIPID SCREEN [facility] Start: 07-20-2026 Diabetes Screening Diabetes Screening [facility] Start: 05-03-2026 Diabetes Screening Diabetes Screening [facility] Start: 04-10-2026 LIPID SCREEN LIPID SCREEN [facility] Start: 12-27-2025 End: 12-27-2025 ambulatory 12/27/2025 11:00 AM EDT Results Only [place] [address] [place] [address] [place] [facility] Start: 12-20-2025 Complete blood count Hemoglobin/Hematocrit [facility] Start: 12-20-2025 Creatinine measurement Serum Creatinine [facility] Start: 11-17-2025 Annual PCP Team Chronic Disease Visit Annual PCP Team Chronic Disease Visit [facility] Start: 11-17-2025 Creatinine measurement Serum Creatinine [facility] Start: 10-09-2025 DIABETES SCREEN DIABETES SCREEN [facility] Start: 10-09-2025 Diabetes Screening Diabetes Screening [facility] Start: 09-28-2025 Annual PCP Team Chronic Disease Visit Annual PCP Team Chronic Disease Visit [facility] Start: 09-28-2025 BP Controlled (<130/80) BP Controlled (<130/80) [facility] Start: 07-27-2025 Annual PCP Team Chronic Disease Visit Annual PCP Team Chronic Disease Visit [facility] Start: 07-27-2025 BP Controlled (<130/80) BP Controlled (<130/80) [facility] Start: 06-24-2025 DIABETES SCREEN DIABETES SCREEN [facility] Start: 05-20-2025 End: 05-20-2025 Patient encounter procedure [facility] Comment on above: 6 month follow up 6 MONTH F/U Start: 05-19-2025 Annual PCP Team Chronic Disease Visit Annual PCP Team Chronic Disease Visit [facility] Start: 05-19-2025 BP Controlled (<130/80) BP Controlled (<130/80) [facility] Start: 05-19-2025 Creatinine measurement Serum Creatinine [facility] Start: 03-10-2025 End: 03-10-2025 Follow-up encounter 03/10/2025 11:30 AM EST [facility] Cerebro[facility] [address] [place] [id number] Ismael Villavicencio MD [address] [place] [id number] 6 month follow up after MRI Cerebrovascular Comment on above: 6 month follow up after MRI Start: 03-07-2025 End: 03-07-2025 Patient encounter procedure 03/07/2025 1:00 PM EST Office Visit Neurology [address] [place], [place] [address] Kel Joya Jr., MD [address] [place], [place] [id number] 4 month follow up Neurology Comment on above: 4 month follow up Start: 03-03-2025 Complete blood count Hemoglobin/Hematocrit [facility] Start: 03-03-2025 Creatinine measurement Serum Creatinine [facility] Start: 02-22-2025 Annual PCP Team Chronic Disease Visit Annual PCP Team Chronic Disease Visit [facility] Start: 02-22-2025 BP Controlled (<130/80) BP Controlled (<130/80) [facility] Start: 02-08-2025 End: 02-08-2025 Patient encounter procedure 02/08/2025 11:30 AM EDT Office Visit Cerebrovascular [address] [place], [place] [phone] Ismael Villavicencio MD [address] [place] [address] 6 month follow up after MRI Cerebrovascular Comment on above: 6 month follow up after MRI Start: 02-02-2025 End: 09-02-2025 MR Brain WO contrast MRI BRAIN WO IVCON Radiology Routine Cerebral amyloid angiopathy (CODE) Expected: 02/02/2025, Expires: 09/02/[address] [facility] Work Phone: Comment on above: Expected: 02/02/2025, Expires: Start: 02-02-2025 End: 02-02-2025 Patient encounter procedure 02/02/2025 11:30 AM EDT Appointment Radiology [address] [place] [address] MRI BRAIN WO IVCON Radiology Comment on above: MRI BRAIN WO IVCON Start: 02-01-2025 Annual PCP Team Chronic Disease Visit Annual PCP Team Chronic Disease Visit [facility] Start: 01-27-2025 25-HYDROXY D2+D3 25-HYDROXY D2+D3 Lab Routine Chronic kidney disease, stage 3a (HCC) Expected: 01/27/2025 [facility] Comment on above: Expected: 01/27/2025 Start: 01-27-2025 CBC panel - Blood by Automated count COMPLETE BLOOD COUNT Lab Routine Chronic kidney disease, stage 3a (HCC) Expected: 01/27/2025 [facility] Comment on above: Expected: 01/27/2025 Start: 01-27-2025 Ferritin [Mass/volume] in Serum or Plasma FERRITIN Lab Routine Anemia, unspecified Expected: 01/27/2025 [facility] Comment on above: Expected: 01/27/2025 Start: 01-27-2025 Iron and Iron binding capacity panel - Serum or Plasma IRON AND TIBC Lab Routine Anemia, unspecified Expected: 01/27/2025 [facility] Comment on above: Expected: 01/27/2025 Start: 01-27-2025 Parathyrin.intact [Mass/volume] in Serum or Plasma PTH INTACT Lab Routine Chronic kidney disease, stage 3a (HCC) Expected: 01/27/2025 [facility] Comment on above: Expected: 01/27/2025 Start: 01-27-2025 Protein/Creatinine [Mass Ratio] in Urine PROTEIN / CREATININE RATIO Lab Routine Chronic kidney disease, stage 3a (HCC) Expected: 01/27/2025 [facility] Comment on above: Expected: 01/27/2025 Start: 01-27-2025 Renal function 2000 panel - Serum or Plasma RENAL FUNCTION PANEL Lab Routine Chronic kidney disease, stage 3a (HCC) Expected: 01/27/[address] [facility] Work Phone: Comment on above: Expected: 01/27/2025 Start: 01-10-2025 DIABETES SCREEN DIABETES SCREEN [facility] Start: 01-01-2025 Annual PCP Team Chronic Disease Visit Annual PCP Team Chronic Disease Visit [facility] Start: 01-01-2025 BP Controlled (<130/80) BP Controlled (<130/80) [facility] Start: 12-27-2024 Influenza vaccination Influenza Vaccine (#1) [facility] Start: 12-15-2024 Complete blood count Hemoglobin/Hematocrit [facility] Start: 12-15-2024 Creatinine measurement Serum Creatinine [facility] Start: 12-10-2024 End: 12-10-2024 Patient encounter procedure 12/10/2024 2:20 PM EDT Office Visit Neurology [address] [place], [place] [id number] Kel Joya Jr., MD [address] [place] [address] Spoke with pt, he will call back today to reschedule Neurology Comment on above: Spoke with pt, he will call back today t o reschedule Start: 12-04-2024 Complete blood count Hemoglobin/Hematocrit [facility] Start: 12-04-2024 Creatinine measurement Serum Creatinine [facility] Start: 12-02-2024 Annual PCP Team Chronic Disease Visit Annual PCP Team Chronic Disease Visit [facility] Start: 12-02-2024 BP Controlled (<130/80) BP Controlled (<130/80) [facility] Start: 12-02-2024 Complete blood count Hemoglobin/Hematocrit [facility] Start: 11-25-2024 End: 11-25-2024 Patient encounter procedure 11/25/2024 2:00 PM EDT Office Visit Neurology [address] [place] [address] Snoring [R06.83]; Daytime sleepiness [R40.0]; Sleep apnea-like behavior [G47.39]; MAXIMUS (obstructive sleep apnea) [G47.33] Neurology Comment on above: Snoring [R06.83]; Daytime sleepiness [R4 0.0]; Sleep apnea-like behavior [G47.39]; MAXIMUS (obstructive sleep apnea) [G47.33] Start: 11-24-2024 End: 11-24-2024 Patient encounter procedure 11/24/2024 2:30 PM EDT Office Visit Vasculary Surgery [address] [place] [place] [address] Dx: Neuropathy [G62.9]; Diminished pulses in lower extremity [R09.89] Vasculary Surgery Comment on above: Dx: Neuropathy [G62.9]; Diminished pulse s in lower extremity [R09.89] Start: 11-24-2024 End: 11-24-2024 ambulatory 11/24/2024 10:00 AM EDT Results Only [facility] [address] [place] [id number] [facility] Start: 11-22-2024 End: 02-21-2025 Potassium [Moles/volume] in Serum or Plasma POTASSIUM Lab Routine Hyperkalemia Expected: 11/22/2024, Expires: 02/21/[address] [facility] Work Phone: Comment on above: Expected: 11/22/2024, Expires: Start: 11-17-2024 End: 02-16-2025 Comprehensive metabolic 2000 panel - Serum or Plasma [facility] Work Phone: Comment on above: Expected: 11/17/2024, Expires: Start: 11-17-2024 End: 11-17-2024 Patient encounter procedure 11/17/2024 2:00 PM EDT Office Visit [facility] [place] [address] [place] [address] Rose Marie Johns APRN.TRANSPLANT COORDINATOR [address] [place] [address] 6 month follow up [facility] [place] Comment on above: 6 month follow up Start: 11-05-2024 End: 11-05-2024 Patient encounter procedure Neurology Comment on above: Spoke with pt, he will call back today t o reschedule Follow up, spinal st enosis & pain Start: 11-05-2024 Annual PCP Team Chronic Disease Visit Annual PCP Team Chronic Disease Visit [facility] Start: 11-05-2024 BP Controlled (<130/80) BP Controlled (<130/80) [facility] Start: 11-05-2024 End: 02-04-2025 CARBAMAZEPINE FREE AND TOTAL [facility] Comment on above: Expected: 11/05/2024, Expires: Start: 11-05-2024 End: 02-04-2025 lamoTRIgine [Mass/volume] in Serum or Plasma [facility] Work Phone: Comment on above: Expected: 11/05/2024, Expires: Start: 11-01-2024 End: 11-01-2024 Patient encounter procedure 11/01/2024 9:00 AM EDT Office Visit Podiatry [address] [place] [address] Tessie Dean [address] [place] [address] Foot pain, left [M79.672] XR IN EP[facility] Podiatry Comment on above: Foot pain, left [M79.672] XR IN [facility] Start: 10-27-2024 Annual PCP Team Chronic Disease Visit Annual PCP Team Chronic Disease Visit [facility] Start: 10-27-2024 BP Controlled (<130/80) BP Controlled (<130/80) [facility] Start: 10-12-2024 End: 10-12-2024 Patient encounter procedure 10/12/2024 10:15 AM EDT Office Visit Podiatry [address] [place] [id number] Tessie Dean [address] [place] [address] Foot pain, left [M79.672] XR IN [facility] Podiatry Comment on above: Foot pain, left [M79.672] XR IN [facility] Start: 09-20-2024 DIABETES SCREEN DIABETES SCREEN [facility] Start: 09-09-2024 End: 09-09-2024 ambulatory 09/09/2024 11:00 AM EDT OT/PT/Speech Visit [facility] [address] [place] [address] O'Lou Willis, PT Spinal stenosis of lumbar region, unspecified whether neurogenic claudication present [M48.061]; Pain in both lower extremities [M79.604, M79.60 [facility] Comment on above: Spinal stenosis of lumbar region, unspec ified whether neurogenic claudication present [M48.061]; Pain in both lower extremities [M79.604, M79.60 Start: 09-02-2024 End: 09-02-2024 ambulatory 09/02/2024 11:00 AM EDT OT/PT/Speech Visit [facility] [address] [place] [address] O'Lou Willis, PT Spinal stenosis of lumbar region, unspecified whether neurogenic claudication present [M48.061]; Pain in both lower extremities [M79.604, M79.60 [facility] Comment on above: Spinal stenosis of lumbar region, unspec ified whether neurogenic claudication present [M48.061]; Pain in both lower extremities [M79.604, M79.60 Start: 08-26-2024 End: 08-26-2024 Patient encounter procedure 08/26/2024 4:30 PM EDT Office Visit Neurology [address] [place] [address] Maria Del Carmen Esparza APRN.TRANSPLANT COORDINATOR [address] [place] [address] SEIZURE FOLLOW UP Neurology Comment on above: SEIZURE FOLLOW UP Start: 08-24-2024 Complete blood count Hemoglobin/Hematocrit [facility] Start: 08-24-2024 End: 08-24-2024 Patient encounter procedure 08/24/2024 10:15 AM EDT Office Visit Neurology [address] [place] [address] Seizure (HCC) [R56.9] Neurology Comment on above: Seizure (HCC) [R56.9] Start: 08-19-2024 End: 08-19-2024 ambulatory 08/19/2024 11:00 AM EDT OT/PT/Speech Visit [facility] [address] [place] [address] Lou Hood, PT Spinal stenosis of lumbar region, unspecified whether neurogenic claudication present [M48.061]; Pain in both lower extremities [M79.604, M79.60 [facility] Comment on above: Spinal stenosis of lumbar region, unspec ified whether neurogenic claudication present [M48.061]; Pain in both lower extremities [M79.604, M79.60 Start: 08-18-2024 End: 11-17-2024 25-hydroxyvitamin D3 [Mass/volume] in Serum or Plasma VITAMIN D 25 HYDROXY Lab Routine Vitamin D deficiency Expected: 08/18/2024, Expires: 11/17/[address] [facility] Work Phone: Comment on above: Expected: 08/18/2024, Expires: Start: 08-18-2024 End: 08-18-2024 ambulatory 08/18/2024 11:00 AM EDT Results Only [facility] [address] [facility] [place] [address] [facility] Start: 08-13-2024 End: 08-13-2024 Patient encounter procedure 08/13/2024 2:20 PM EDT Office Visit Neurology [address] [facility] [place] [address] Kel Joya Jr., MD [address] [facility] [place] [address] jarred 04/30/24, 60 min f/u Neurology Comment on above: jarred 04/30/24, 60 min f/u Start: 08-12-2024 End: 08-12-2024 ambulatory 08/12/2024 11:00 AM EDT OT/PT/Speech Visit [facility] [address] [place] [address] O'Lou Willis, PT Spinal stenosis of lumbar region, unspecified whether neurogenic claudication present [M48.061]; Pain in both lower extremities [M79.604, M79.60 [facility] Comment on above: Spinal stenosis of lumbar region, unspec ified whether neurogenic claudication present [M48.061]; Pain in both lower extremities [M79.604, M79.60 Start: 08-05-2024 Screening for malignant neoplasm of colon Fecal Occult Blood [facility] Start: 08-04-2024 End: 08-04-2024 ambulatory 08/04/2024 3:45 PM EDT OT/PT/Speech Visit [facility] [address] [place] [address] O'Lou Willis, PT Spinal stenosis of lumbar region, unspecified whether neurogenic claudication present [M48.061]; Pain in both lower extremities [M79.604, M79.60 [facility] Comment on above: Spinal stenosis of lumbar region, unspec ified whether neurogenic claudication present [M48.061]; Pain in both lower extremities [M79.604, M79.60 Start: 08-04-2024 Annual PCP Team Chronic Disease Visit Annual PCP Team Chronic Disease Visit [facility] Start: 08-04-2024 BP Controlled (<130/80) BP Controlled (<130/80) [facility] Start: 08-03-2024 End: 08-03-2024 Patient encounter procedure 08/03/2024 1:00 PM EDT Office Visit Cerebrovascular [address] [place] [address] Ismael Villavicencio MD [address] [place] [address] Cerebral hemorrhage (HCC) [I61.9]; Abnormal finding on MRI of brain [R90.89]; Cognitive decline [R41.89]; Cerebral amyloid angiopathy (CODE) [I68.0]; Balance problems [R26.89] Cerebrovascular Comment on above: Cerebral hemorrhage (HCC) [I61.9]; Abnor mal finding on MRI of brain [R90.89]; Cognitive decline [R41.89]; Cerebral amyloid angiopathy (CODE) [I68.0]; Balance problems [R26.89] Start: 07-28-2024 End: 07-28-2024 Patient encounter procedure 07/28/2024 9:30 AM EDT Office Visit Neurology [address] [facility] [place] [address] Dianelys Reynolds PA-C [address] [facility] [place] [id number] See 07/04/24 [facility] Comment on above: See 07/04/24 [employer] Start: 07-27-2024 End: 07-27-2024 Patient encounter procedure 07/27/2024 10:00 AM EDT Office Visit Family [facility] [place] [address] [facility] [place] [address] Alpesh Hill MD [address] [facility] [place] [address] [facility] 07-04 follow up / per nurse [facility] [place] Comment on above: [facility] 07-04 follow up / per nurse Start: 07-22-2024 Complete blood count Hemoglobin/Hematocrit [facility] Start: 07-21-2024 End: 07-21-2024 ambulatory 07/21/2024 11:00 AM EDT Results Only [facility] [address] [facility] [place] [address] [facility] Start: 07-20-2024 End: 07-20-2024 ambulatory 07/20/2024 3:00 PM EDT OT/PT/Speech Visit [facility] [address] [place] [address] Brandon, Sohail, PT Spinal stenosis of lumbar region, unspecified whether neurogenic claudication present [M48.061]; Pain in both lower extremities [M79.604, M79.605] [place] [facility] Comment on above: Spinal stenosis of lumbar region, unspec ified whether neurogenic claudication present [M48.061]; Pain in both lower extremities [M79.604, M79.605] Start: 07-20-2024 End: 07-20-2024 Patient encounter procedure 07/20/2024 2:30 PM EDT Appointment Radiology [address] [place] [address] Spinal stenosis of lumbar region, unspecified whether neurogenic claudication present [M48.061] Radiology Comment on above: Spinal stenosis of lumbar region, unspec ified whether neurogenic claudication present [M48.061] Start: 07-20-2024 Subsequent hospital visit by physician 07/20/2024 2:30 PM EDT Hospital Encounter Radiology [address] [place] [address] Spinal stenosis of lumbar region, unspecified whether neurogenic claudication present [M48.061] Radiology Comment on above: Spinal stenosis of lumbar region, unspec ified whether neurogenic claudication present [M48.061] Start: 07-20-2024 End: 10-19-2024 MARILYN BY IFA WITH REFLEX MARILYN BY IFA WITH REFLEX Lab Routine Neuropathy Expected: 07/20/2024, Expires: 10/19/2024 [facility] Comment on above: Expected: 07/20/2024, Expires: Start: 07-20-2024 Annual PCP Team Chronic Disease Visit Annual PCP Team Chronic Disease Visit [facility] Start: 07-20-2024 BP Controlled (<130/80) BP Controlled (<130/80) [facility] Start: 07-20-2024 End: 10-19-2024 Cobalamin (Vitamin B12) [Mass/volume] in Serum or Plasma VITAMIN B12 Lab Routine Neuropathy Expected: 07/20/2024, Expires: 10/19/2024 [facility] Comment on above: Expected: 07/20/2024, Expires: Start: 07-20-2024 Complete blood count Hemoglobin/Hematocrit [facility] Start: 07-20-2024 Creatinine measurement Serum Creatinine [facility] Start: 07-20-2024 End: 10-19-2024 Methylmalonate [Moles/volume] in Serum or Plasma METHYLMALONIC ACID Lab Routine Neuropathy Expected: 07/20/2024, Expires: 10/19/[address] [facility] Work Phone: Comment on above: Expected: 07/20/2024, Expires: Start: 07-20-2024 End: 10-19-2024 PROT ELECT SERUM WITH JOSE A AND INTERP PROT ELECT SERUM WITH JOSE A AND INTERP Lab Routine Neuropathy Expected: 07/20/2024, Expires: 10/19/2024 [facility] Comment on above: Expected: 07/20/2024, Expires: Start: 07-19-2024 End: 07-19-2024 ambulatory Neurology Comment on above: Pain in both lower extremities [M79.604, M79.605] L LE #[id number] r L LE #[id number] Start: 07-15-2024 End: 07-15-2024 Patient encounter procedure 07/15/2024 1:30 PM EDT Office Visit Neurology [address] [place] [address] Seizure (HCC) [R56.9] Neurology Comment on above: Seizure (HCC) [R56.9] Start: 07-14-2024 End: 07-14-2024 ambulatory 07/14/2024 12:45 PM EDT OT/PT/Speech [facility] [address] [place] [address] Corrina Jeff, PT RECHECK Cognitive decline [R41.89]; Balance problems [R26.89] [facility] Comment on above: RECHECK Cognitive decline [R41.89]; Teofilo nce problems [R26.89] Start: 07-07-2024 End: 07-07-2024 Patient encounter procedure 07/07/2024 1:00 PM EDT Office Visit Family Medicine [place] [address] [place] [address] Podlogar, Rose Marie, SALES SOLUTIONS REPRESENTATIVE.TRANSPLANT COORDINATOR [address] [place] [address] ER follow up/pain in both legs? [facility] [place] Comment on above: ER follow up/pain in both legs? Start: 07-05-2024 PROSTATE CANCER SCREENING DISCUSSION PROSTATE CANCER SCREENING DISCUSSION [facility] Start: 07-05-2024 Prostate specific antigen measurement Prostate Cancer Screening Discussion [facility] Start: 06-22-2024 End: 06-22-2024 ambulatory [facility] Therapy Comment on above: Cerebral hemorrhage (HCC) [I61.9]; Cogni tive decline [R41.89]; Cerebral amyloid angiopathy (CODE) [I68.0] Cognitive decline [R 41.89]; Balance problems [R26.89] Start: 06-16-2024 End: 06-16-2024 ambulatory 06/16/2024 1:30 PM EST OT/PT/Speech Visit [facility] [address] [place] [id number] Kavon Moreno, FIELD FOREMAN [address] [place] [address] Cognitive decline [R41.89]; Balance problems [R26.89] [facility] Comment on above: Cognitive decline [R41.89]; Balance prob lems [R26.89] Start: 06-15-2024 Colonoscopy COLONOSCOPY [facility] Start: 06-15-2024 COLORECTAL CANCER SCREENING COLORECTAL CANCER SCREENING [facility] Start: 06-15-2024 Screening for malignant neoplasm of colon [facility] Start: 06-15-2024 End: 06-15-2024 ambulatory [facility] Comment on above: Cognitive decline [R41.89]; Balance prob lems [R26.89] Cerebral hemorrhage (HCC) [I61.9]; Cognitive decline [R41.89]; Cerebral amyloid angiopathy (CODE) [I68.0] Start: 06-15-2024 End: 06-15-2024 ambulatory 06/15/2024 10:45 AM EST OT/PT/Speech Visit [facility] [address] [place] [address] Shaji Younger, RUSTY Cognitive decline [R41.89]; Balance problems [R26.89] [facility] Comment on above: Cognitive decline [R41.89]; Balance prob lems [R26.89] Start: 06-09-2024 End: 06-09-2024 ambulatory 06/09/2024 1:30 PM EST OT/PT/Speech Visit [facility] [address] [place] [address] Kavon Moreno, FIELD FOREMAN [address] [place], [place] [phone] Cognitive decline [R41.89]; Balance problems [R26.89] [facility] Comment on above: Cognitive decline [R41.89]; Balance prob lems [R26.89] Start: 06-08-2024 End: 06-08-2024 ambulatory [facility] Comment on above: Cognitive decline [R41.89]; Balance prob lems [R26.89] Cerebral hemorrhage (HCC) [I61.9]; Cognitive decline [R41.89]; Cerebral amyloid angiopathy (CODE) [I68.0] Start: 06-08-2024 End: 06-08-2024 ambulatory 06/08/2024 10:45 AM EST OT/PT/Speech Visit [facility] [address] [place] [address] Kavon Moreno, FIELD FOREMAN [address] [place], [place] [phone] Cognitive decline [R41.89]; Balance problems [R26.89] [facility] Comment on above: Cognitive decline [R41.89]; Balance prob lems [R26.89] Start: 06-01-2024 End: 06-01-2024 ambulatory [facility] Speech Therapy Comment on above: Cerebral hemorrhage (HCC) [I61.9]; Cogni tive decline [R41.89]; Cerebral amyloid angiopathy (CODE) [I68.0] Cognitive decline [R 41.89]; Balance problems [R26.89] Start: 05-26-2024 End: 05-26-2024 ambulatory 05/26/2024 1:30 PM EST OT/PT/Speech Visit [facility] [address] [place] [address] Kavon Moreno, FIELD FOREMAN [address] [place] [address] Cognitive decline [R41.89]; Balance problems [R26.89] [facility] Comment on above: Cognitive decline [R41.89]; Balance prob lems [R26.89] Start: 05-19-2024 End: 05-19-2024 Patient encounter procedure 05/19/2024 1:00 PM EST Office Visit [facility] [place] [address] [place], [place] [id number] Alpesh Hill MD [address] [place], [place] [phone] Medicare Wellness (last one on 04/02/23) [facility] [place] Comment on above: Medicare Wellness (last one on 04/02/23) Start: 05-18-2024 End: 05-18-2024 ambulatory [facility] Comment on above: Cognitive decline [R41.89]; Balance prob lems [R26.89] Cerebral hemorrhage (HCC) [I61.9]; Cognitive decline [R41.89]; Cerebral amyloid angiopathy (CODE) [I68.0] Start: 05-03-2024 Complete blood count Hemoglobin/Hematocrit [facility] Start: 05-03-2024 Creatinine measurement Serum Creatinine [facility] Start: 04-30-2024 End: 04-30-2024 Patient encounter procedure Neurology Comment on above: Magnetic resonance imaging of brain abno rmal [R90.89] Start: 04-10-2024 DIABETES SCREEN DIABETES SCREEN [facility] Start: 04-02-2024 Annual PCP Team Chronic Disease Visit Annual PCP Team Chronic Disease Visit [facility] Start: 04-02-2024 BP Controlled (<130/80) BP Controlled (<130/80) [facility] Start: 04-02-2024 End: 04-02-2024 Patient encounter procedure 04/02/2024 12:40 PM EST Office Visit [facility] Medicine [place] [address] [facility] [place] [address] PodlogRose Marie israel, LAUREN.TRANSPLANT COORDINATOR [address] [place] [address] Annual Exam [facility] [place] Comment on above: Annual Exam Start: 02-27-2024 Annual PCP Team Chronic Disease Visit Annual PCP Team Chronic Disease Visit [facility] Start: 02-16-2024 End: 02-16-2024 Patient encounter procedure 02/16/2024 8:00 AM EDT Appointment Radiology [address] [place] [address] MRI BRAIN WO IVCON Radiology Comment on above: MRI BRAIN WO IVCON Start: 02-02-2024 End: 02-02-2024 Patient encounter procedure 02/02/2024 12:40 PM EDT Office Visit [facility] [place] [address] [facility] [place] [address] PodRose Marie alfredo APRN.TRANSPLANT COORDINATOR [address] [facility] [place] [address] BP check [facility] [place] Comment on above: BP check Start: 01-23-2024 End: 01-23-2024 Patient encounter procedure 01/23/2024 12:45 PM EDT Appointment [facility] [address] [place] [id number] Positive Romberg test [R29.818] [facility] Comment on above: Positive Romberg test [R29.818] Start: 01-23-2024 End: 01-23-2024 Patient encounter procedure [facility] Comment on above: Positive Romberg test [R29.818] Start: 12-28-2023 Influenza [facility] Start: 12-24-2023 Complete blood count Hemoglobin/Hematocrit [facility] Start: 12-24-2023 Creatinine measurement Serum Creatinine [facility] Start: 12-24-2023 Hemoglobin/Hematocrit Hemoglobin/Hematocrit [facility] Start: 12-24-2023 Serum Creatinine Serum Creatinine [facility] Start: 12-04-2023 End: 03-04-2024 Ferritin [Mass/volume] in Serum or Plasma FERRITIN Lab Routine Macrocytic anemia Expected: 12/04/2023, Expires: 03/04/2024 [facility] Comment on above: Expected: 12/04/2023, Expires: Start: 12-04-2023 End: 03-04-2024 Iron and Iron binding capacity panel - Serum or Plasma IRON AND TIBC Lab Routine Macrocytic anemia Expected: 12/04/2023, Expires: 03/04/[address] [facility] Work Phone: Comment on above: Expected: 12/04/2023, Expires: Start: 11-25-2023 End: 02-24-2024 CBC W Auto Differential panel - Blood COMPLETE BLOOD COUNT AND DIFFERENTIAL Lab Routine Macrocytic anemia Expected: 11/25/2023, Expires: 02/24/[address] [facility] Work Phone: Comment on above: Expected: 11/25/2023, Expires: Start: 11-06-2023 ANNUAL PCP TEAM CHRONIC DISEASE VISIT ANNUAL PCP TEAM CHRONIC DISEASE VISIT [facility] Start: 11-06-2023 BP CONTROLLED (<130/80) BP CONTROLLED (<130/80) [facility] Start: 10-16-2023 ANNUAL PCP TEAM CHRONIC DISEASE VISIT ANNUAL PCP TEAM CHRONIC DISEASE VISIT [facility] Start: 10-16-2023 BP CONTROLLED (<130/80) BP CONTROLLED (<130/80) [facility] Start: 10-10-2023 HEMOGLOBIN/HEMATOCRIT HEMOGLOBIN/HEMATOCRIT [facility] Start: 10-10-2023 SERUM CREATININE SERUM CREATININE [facility] Start: 08-27-2023 End: 11-26-2023 CBC W Auto Differential panel - Blood CBC + DIFF Lab Routine Macrocytic anemia Expected: 08/27/2023, Expires: 11/26/[address] [facility] Work Phone: Comment on above: Expected: 08/27/2023, Expires: Start: 07-22-2023 End: 10-21-2023 CBC W Ordered Manual Differential panel - Blood PATHOLOGIST INTERPRETATION WITH CBC AND DIFF Lab Routine Macrocytic anemia Expected: 07/22/2023, Expires: 10/21/[address] [facility] Work Phone: Comment on above: Expected: 07/22/2023, Expires: Start: 07-22-2023 End: 10-21-2023 Cobalamin (Vitamin B12) [Mass/volume] in Serum or Plasma VITAMIN B12 BLOOD Lab Routine Macrocytic anemia Expected: 07/22/2023, Expires: 10/21/[address] [facility] Work Phone: Comment on above: Expected: 07/22/2023, Expires: Start: 07-22-2023 End: 10-21-2023 COPPER BLOOD COPPER BLOOD Lab Routine Macrocytic anemia Expected: 07/22/2023, Expires: 10/21/[address] [facility] Work Phone: Comment on above: Expected: 07/22/2023, Expires: Start: 07-22-2023 End: 10-21-2023 Folate [Mass/volume] in Serum or Plasma FOLATE SERUM Lab Routine Macrocytic anemia Expected: 07/22/2023, Expires: 10/21/[address] [facility] Work Phone: Comment on above: Expected: 07/22/2023, Expires: Start: 07-22-2023 End: 10-21-2023 RETIC COUNT RETIC COUNT Lab Routine Macrocytic anemia Expected: 07/22/2023, Expires: 10/21/[address] [facility] Work Phone: Comment on above: Expected: 07/22/2023, Expires: Start: 07-22-2023 End: 10-21-2023 Thyrotropin [Units/volume] in Serum or Plasma TSH BLD Lab Routine Macrocytic anemia Expected: 07/22/2023, Expires: 10/21/[address] [facility] Work Phone: Comment on above: Expected: 07/22/2023, Expires: Start: 07-11-2023 ANNUAL PCP TEAM CHRONIC DISEASE VISIT ANNUAL PCP TEAM CHRONIC DISEASE VISIT [facility] Start: 07-11-2023 BP CONTROLLED (<130/80) BP CONTROLLED (<130/80) [facility] Start: 07-11-2023 FECAL OCCULT BLOOD FECAL OCCULT BLOOD [facility] Start: 07-11-2023 HEMOGLOBIN/HEMATOCRIT HEMOGLOBIN/HEMATOCRIT [facility] Start: 07-11-2023 Screening for malignant neoplasm of colon Fecal Occult Blood [facility] Start: 06-24-2023 HEMOGLOBIN/HEMATOCRIT HEMOGLOBIN/HEMATOCRIT [facility] Start: 06-24-2023 SERUM CREATININE SERUM CREATININE [facility] Start: 2023 RSV Vaccine (1 - 1-dose 60+ series) RSV Vaccine (1 - 1-dose 60+ series) [facility] Start: 04-28-2023 Behavioral Health Screening Behavioral Health Screening [facility] Start: 04-28-2023 Depression Assessment Depression Assessment [facility] Start: 03-28-2023 ANNUAL PCP TEAM CHRONIC DISEASE VISIT ANNUAL PCP TEAM CHRONIC DISEASE VISIT [facility] Start: 03-28-2023 BP CONTROLLED (<130/80) BP CONTROLLED (<130/80) [facility] Start: 03-28-2023 HEPATITIS B (1 of 3 - 3-dose series) HEPATITIS B (1 of 3 - 3-dose series) [facility] Comment on above: Postponed from 1963 (Declined at t his time) Start: 01-10-2023 HEMOGLOBIN/HEMATOCRIT HEMOGLOBIN/HEMATOCRIT [facility] Start: 01-10-2023 SERUM CREATININE SERUM CREATININE [facility] Start: 12-27-2022 Influenza vaccination [facility] Start: 12-25-2022 HEMOGLOBIN/HEMATOCRIT HEMOGLOBIN/HEMATOCRIT [facility] Start: 12-25-2022 SERUM CREATININE SERUM CREATININE [facility] Start: 12-20-2022 ANNUAL PCP TEAM CHRONIC DISEASE VISIT ANNUAL PCP TEAM CHRONIC DISEASE VISIT [facility] Start: 12-20-2022 BP CONTROLLED (<130/80) BP CONTROLLED (<130/80) [facility] Start: 12-13-2022 BP CONTROLLED (<130/80) BP CONTROLLED (<130/80) [facility] [facility] Start: 09-26-2022 ANNUAL PCP TEAM CHRONIC DISEASE VISIT ANNUAL PCP TEAM CHRONIC DISEASE VISIT [facility] Start: 09-20-2022 HEMOGLOBIN/HEMATOCRIT HEMOGLOBIN/HEMATOCRIT [facility] Start: 09-20-2022 SERUM CREATININE SERUM CREATININE [facility] Start: 07-10-2022 End: 09-09-2022 CBC W Auto Differential panel - Blood [facility] Work Phone: Comment on above: Expected: 07/10/2022, Expires: 3 Start: 07-10-2022 End: 09-09-2022 Ferritin [Mass/volume] in Serum or Plasma [facility] Work Phone: Comment on above: Expected: 07/10/2022, Expires: 3 Start: 07-10-2022 End: 09-09-2022 Iron and Iron binding capacity panel - Serum or Plasma [facility] Work Phone: Comment on above: Expected: 07/10/2022, Expires: 3 Start: 05-11-2022 BP CONTROLLED (<130/80) BP CONTROLLED (<130/80) [facility] Start: 04-28-2022 DEPRESSION ASSESSMENT DEPRESSION ASSESSMENT [facility] Start: 04-16-2022 ANNUAL PCP TEAM CHRONIC DISEASE VISIT ANNUAL PCP TEAM CHRONIC DISEASE VISIT [facility] Start: 04-10-2022 HEMOGLOBIN/HEMATOCRIT HEMOGLOBIN/HEMATOCRIT [facility] Start: 04-10-2022 SERUM CREATININE SERUM CREATININE [facility] Start: 01-04-2022 Patient discharge [facility] Work Phone: Start: 12-27-2021 Influenza vaccination INFLUENZA (#1) [facility] Start: 09-22-2021 Adult depression screening assessment DEPRESSION SCREENING [facility] Start: 2008 COLOGUARD (FIT-DNA) COLOGUARD (FIT-DNA) [facility] Start: [address] COLONOGRAPHY [facility] Start: 2008 FECAL OCCULT BLOOD FECAL OCCULT BLOOD [facility] Start: 2008 Screening for malignant neoplasm of colon [facility] Start: 2008 SIGMOIDOSCOPY SIGMOIDOSCOPY [facility] Start: 01-26-1987 Medicare Annual Wellness Visit Medicare Annual Wellness Visit [facility] Start: 1981 Anxiety Screening Anxiety Screening [facility] Start: 1981 BP CONTROLLED (<130/80) BP CONTROLLED (<130/80) [facility] Start: 1981 Depression Screening Depression Screening [facility] Start: 1965 HEPATITIS B (1 of 3 - 3-dose series) HEPATITIS B (1 of 3 - 3-dose series) [facility] End: 11-06-2023 ECG COMPLETE ECG COMPLETE ECG Routine Chest pain, unspecified type 1 Occurrences starting 11/05/2022 until 11/06/[address] [facility] Work Phone: Comment on above: 1 Occurrences starting 11/05/2022 until 11/06/2023 ECG COMPLETE ECG COMPLETE ECG Routine Chest wall discomfort Ordered: 12/03/[address] [facility] Work Phone: Comment on above: Ordered: 12/03/2023 End: 11-06-2023 Echocardiography ECHO Cardiology ANIL Chest pain, unspecified type 1 Occurrences starting 11/05/2022 until 11/06/[address] [facility] Work Phone: Comment on above: 1 Occurrences starting 11/05/2022 until 11/06/2023 End: 07-06-2025 EMG(NEURO/NI) EMG(NEURO/NI) EMG Routine Pain in both lower extremities 1 Occurrences starting 07/06/2024 until 07/06/[address] [facility] Work Phone: Comment on above: 1 Occurrences starting 07/06/2024 until 07/06/2025 End: 06-11-2025 EPIL EEG ROUTINE EPIL EEG ROUTINE NEUROLOGY Routine Seizure (HCC) 1 Occurrences starting 06/11/2024 until 06/11/[address] [facility] Work Phone: Comment on above: 1 Occurrences starting 06/11/2024 until 06/11/2025 End: 11-06-2023 EXERCISE STRESS ECG (WITHOUT IMAGING) EXERCISE STRESS ECG (WITHOUT IMAGING) Cardiology ANIL Chest pain, unspecified type 1 Occurrences starting 11/05/2022 until 11/06/[address] [facility] Work Phone: Comment on above: 1 Occurrences starting 11/05/2022 until 11/06/2023 Hemoglobin.gastroint arnie nal.lower [Presence] in Stool by Immunoassay FECAL OCCULT BLOOD TEST Lab Routine BRBPR (bright red blood per rectum) External hemorrhoids 07/10/2022 3:00 PM EDT [facility] Work Phone: Hemoglobin.gastroint arnie nal.lower [Presence] in Stool by Immunoassay FECAL OCCULT BLOOD TEST Lab Routine BRBPR (bright red blood per rectum) Ordered: 08/05/[address] [facility] Work Phone: Comment on above: Ordered: 08/05/2023 HOME SLEEP APNEA GM T (HSAT) HOME SLEEP APNEA TEST (HSAT) Procedures Routine Snoring Daytime sleepiness Sleep apnea-like behavior MAXIMUS (obstructive sleep apnea) 1 Occurrences starting 11/05/2024 [facility] Comment on above: 1 Occurrences starting 11/05/2024 End: 01-31-2025 MR Brain WO contrast MRI BRAIN WO IVCON Radiology Routine Positive Romberg test Unsteady gait Dizziness 1 Occurrences starting 01/02/2024 until 01/31/[address] [facility] Work Phone: Comment on above: 1 Occurrences starting 01/02/2024 until 01/31/2025 End: 08-05-2025 MR Lumbar spine WO contrast MRI LUMBAR SPINE WO IVCON Radiology Routine Spinal stenosis of lumbar region, unspecified whether neurogenic claudication present 1 Occurrences starting 07/06/2024 until 08/05/2025 [facility] Comment on above: 1 Occurrences starting 07/06/2024 until 08/05/2025 End: 01-31-2025 MRA Head vessels WO contrast MRA BRAIN WO IVCON Radiology Routine Positive Romberg test Unsteady gait Dizziness 1 Occurrences starting 01/02/2024 until 01/31/2025 [facility] Comment on above: 1 Occurrences starting 01/02/2024 until 01/31/2025 End: 01-31-2025 MRA Neck vessels WO contrast MRA CAROTID WO IVCON Radiology Routine Positive Romberg test Unsteady gait Dizziness 1 Occurrences starting 01/02/2024 until 01/31/2025 [facility] Comment on above: 1 Occurrences starting 01/02/2024 until 01/31/2025 Patient Education ED Gallstones with Biliary Colic ED Abdominal Pain Unkn Cause Male... [facility] Work Phone: Patient referral [facility] Work Phone: Removal impacted cer umen irrigation/lvg unilat AMBULATORY EAR LAVAGE/IRRIGATION Procedures Routine Bilateral impacted cerumen Ear pain, bilateral Ordered: 02/23/[address] [facility] Work Phone: Comment on above: Ordered: 02/23/2024 End: 11-01-2025 US.doppler Extremity arteries - bilateral for physiologic artery study PVR ANK [facility] Vascular Lab Routine Neuropathy Diminished pulses in lower extremity 1 Occurrences starting 11/01/2024 until 11/01/[address] [facility] Work Phone: Comment on above: 1 Occurrences starting 11/01/2024 until 11/01/2025 End: 11-14-2023 XR KNEE GENERAL 4V AP BOTH/PA BOTH/LAT/MERC BILATERAL XR KNEE GENERAL 4V AP BOTH/PA BOTH/LAT/MERC BILATERAL Radiology Routine Acute bilateral knee pain 1 Occurrences starting 10/15/2022 until 11/14/[address] [facility] Work Phone: Comment on above: 1 Occurrences starting 10/15/2022 until 11/14/2023 XR KNEE GENERAL 4V A P BOTH/PA BOTH/LAT/MERC BILATERAL XR KNEE GENERAL 4V AP BOTH/PA BOTH/LAT/MERC BILATERAL Radiology Routine Acute bilateral knee pain 10/15/2022 1:49 PM EDT [facility] Work Phone: [facility] Immunizations Immunization Date Immunization Notes Care Provider Jason [facility] 12-23-2023 influenza virus vaccine, unspecified formulation Tessie Dean Work Phone: [facility] 12-31-2022 influenza virus vaccine, unspecified formulation Alpesh Hill MD Work Phone: [facility] 01-14-2022 influenza virus vaccine, unspecified formulation Alpesh Hill MD Work Phone: [facility] 01-02-2021 influenza, injectabl e, quadrivalent, preservative free Rose Marie Johns SALES SOLUTIONS REPRESENTATIVE.TRANSPLANT COORDINATOR Work Phone: [facility] Work Phone: 10-31-2020 zoster vaccine recombinant Rose Marie Podlogar SALES SOLUTIONS REPRESENTATIVE.TRANSPLANT COORDINATOR Work Phone: [facility] Work Phone: 08-29-2020 zoster vaccine recombinant Rose Marie Podlogar SALES SOLUTIONS REPRESENTATIVE.TRANSPLANT COORDINATOR Work Phone: [facility] 08-03-2020 COVID-19 vaccine, ag e 12+ yr (PFIZER-BIONTECH - PURPLE TOP) Rose Marie Podlogar SALES SOLUTIONS REPRESENTATIVE.TRANSPLANT COORDINATOR Work Phone: [facility] 07-13-2020 COVID-19 vaccine, ag e 12+ yr (PFIZER-BIONTECH - PURPLE TOP) Rose Marie Podlogar SALES SOLUTIONS REPRESENTATIVE.TRANSPLANT COORDINATOR Work Phone: [facility] 01-17-2018 influenza, injectabl e, quadrivalent, contains preservative Rose Marie Podlogar SALES SOLUTIONS REPRESENTATIVE.TRANSPLANT COORDINATOR Work Phone: [facility] 01-17-2018 tetanus toxoid, reduced diphtheria toxoid, and acellular pertussis vaccine, adsorbed Rose Marie Podlogar SALES SOLUTIONS REPRESENTATIVE.TRANSPLANT COORDINATOR Work Phone: [facility] Payers Date Payer Category Payer Self-pay [id number] 2024 Unknown [id number] 2018 Medicaid [employer] [id number] 2018-Present [phone] [address] [place] [address] Medicaid [id number] 2013 Medicaid [id number] 2013 Unknown [id number] 1987 Medicare MEDICARE MEDICAR E A AND B [id number] 1987-Present [phone] [address] [address] [place] [address] Medicare [id number] 1987 Medicare [id number] 1987 Medicare [id number] Unknown [id number] Unknown [id number] Unknown [id number] Unknown [id number] Unknown [id number] Unknown [id number] Unknown [id number] Unknown [id number] Unknown [id number] Social History Date Type Detail Facility Start: 06-09-2014 End: 12-13-2021 Tobacco smoking status NHIS Never smoked tobacco [facility] Work Phone: Start: 05-11-2021 End: 11-17-2024 Alcohol intake Current non-drinker of alcohol (finding) [facility] Start: 1965 Sex Assigned At Not on file [facility] Start: 09-25-2020 End: 12-20-2021 Exposure to SARS-CoV-2 (event) Not sure [facility] Start: 12-13-2021 End: 12-28-2021 Tobacco smoking status NHIS Unknown if ever smoked [facility] Work Phone: Start: 1965 Sex Assigned At Male [facility] Start: 06-09-2014 End: 12-13-2021 Tobacco use and exposure Smokeless tobacco non-user [facility] Start: 11-05-2022 End: 11-04-2024 History of Social function [facility] Work Phone: Start: 11-05-2022 End: 11-04-2024 Tobacco use panel [facility] Work Phone: Start: 03-29-2012 Adult Depression Screening Assessment 0 [facility] Work Phone: Start: 11-09-2023 Gender identity Identifies as male gender (nikhil) [facility] Start: 11-09-2023 Sexual orientation Heterosexual (tonja gonzalez) [facility] Goals Date Patient Goal Desired Activity /State Functional Status Date Assessment Result Facility 05-24-2014 Are you deaf, or do you have serious difficulty hearing No 05/24/2014 1:33 PM Yoon Cyr Ma [facility] 05-24-2014 Are you blind, or do you have serious difficulty seeing, even when wearing glasses No 05/24/2014 1:33 PM Yoon Cry Ma [facility] 05-24-2014 Do you have serious difficulty walking or climbing stairs No 05/24/2014 1:33 PM Yoon Cyr Ma [facility] 05-24-2014 Do you have difficul ty dressing or bathing No 05/24/2014 1:33 PM Yoon Cyr Ma [facility] 05-24-2014 Because of a physica l, mental, or emotional condition, do you have difficulty doing errands alone such as visiting a physician's office or shopping No 05/24/2014 1:33 PM Yoon Cyr Ma [facility] Mental Status Date Assessment Result Facility 01-04-2022 Cognitive function Voice/Name Lucina [facility] Work Phone: 05-24-2014 Because of a physica l, mental, or emotional condition, do you have serious difficulty concentrating, remembering, or making decisions No 05/24/2014 1:33 PM Yoon Cyr Ma [facility] Clinical Notes 10-25-2020 to 03-07-2025 Telephone Encounter - Alaina Orozco - 01/06/2025 2:54 PM EDTTelephone Encounter - Alaina Orozco - 01/06/2025 2:54 PM EDT Note Date & Type Note Facility 03-07-2025 Note HNO ID: [id number] Author: KEL JOYA JR, MD Service: ? Author Type: Physician Type: Progress Notes Filed: 03/07/2025 14:03 Note Text: ESTABLISHED PATIENT VISIT CHIEF COMPLAINT: Follow Up HISTORY OF PRESENT ILLNESS: Jimi Soto is a 59 year old male, with a PMH significant for and per last office visit of 11/05/24: 1. Encounter for long-term (current) use of medications - ICD9: V58.69, ICD10: Z79.899 (primary diagnosis) 2. Cognitive decline - ICD9: 294.9, ICD10: R41.89 3. Abnormal finding on MRI of brain - ICD9: 793.0, ICD10: R90.89 4. Cerebral amyloid angiopathy (CODE) - ICD9: 277.39, 437.9, ICD10: I68.0 Etiology of cognitive decline remains unknown. However, patient did score higher on the MOCA today than last visit, perhaps suggesting that in fact cognitive complaints are due to other medical and mood disorders. Still, finding of possible CAA on prior MRI brain. Agree with Dr. Villavicencio on repeating MRI brain later this year. Await those findings. Given overall improvement, will not initiate a dementia medication at this time such as Aricept or Namenda. Follow up in February to see if remains stable. By that time should also have repeat MRI results. 5. watermaster current use of 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 - ICD9: V58.69, ICD10: Z79.899 Possible cause of other complaints including cognition/fatigue/sleepiness. Will check levels of Lamictal and Carbamazepine to confirm not supra therapeutic. 6. Malaise and fatigue - ICD9: 780.79, ICD10: R53.81, R53.83 #5 as above and see below regarding possible MAXIMUS. 7. Spinal stenosis of lumbar region, unspecified whether neurogenic claudication present - ICD9: 724.02, ICD10: M48.061 8. Neuropathy - ICD9: 355.9, ICD10: G62.9 Pain appears unchanged from last visit. Has symptoms suggestive of both L spine and neuropathy etiology. No weakness. Pain improved with gabapentin. Will increase gabapentin dose to 300mg BID. 9. Snoring - ICD9: 786.09, ICD10: R06.83 10. Daytime sleepiness - ICD9: 780.54, ICD10: R40.0 11. Sleep apnea-like behavior - ICD9: 780.59, ICD10: G47.39 12. MAXIMUS (obstructive sleep apnea) - ICD9: 327.23, ICD10: G47.33 Tired and sleepy. Does have risk factors for MAXIMUS including BMI >30 and crowded airway. Symptoms of snoring. Dry mouth at night. Will get HSAT to further evaluate. Discussed with patient: the physiology of OSAS, medical conditions associated with OSAS (DM, HTN, CAD, Depression, Stroke, Headache...) and treatment options (UPPP, Dental appliances, CPAP...). Advised patient to avoid activities that could harm self or others when tired/sleepy, including driving and/or operating heavy machinery. Encouraged weight loss, and continued compliance with other medications. Pt did not complete sleep study. MRI brain completed on 02/02/25 suggestive of CAA but no new hemorrhages identified. Per rad report: No acute intracranial pathology. Innumerable chronic microhemorrhages, similar to previous. Patient feels memory doing better. Thinks things are better. Pt did not want to do sleep study. States psychiatry is trying to get him off meds. Sister expands on this - ambien d/c'd, effexor dose to 04/29. Pt states that fatigue persists. Going to bed about 11PM and waking about 7AM. No issues falling asleep. States feels good right when he gets up and then can hardly get to breakfast. States entire day feels tired. Dozing off if trying to watch tv. HAs in AM as well as dry mouth in the AM. States balance still not good but no falls. Only taking gabapentin at night as daytime dosing makes too tired. States however that this dose alone is controlling neuropathy pain. No issues driving. MODIFIED MOCA: Immediate recall: 08/30 Sentence repeat: 05/30 Number repeat: 05/30 Serial 7s: 05/31 Abstract: 05/30 Orientation: 10/01 Namin/3 Delayed recall: 07/31 (08/30 with cue) Clock drawin/3 REVIEW OF SYSTEMS GENERAL:No weight loss, malaise or fevers. HEENT:Negative for frequent or significant headaches, No changes in hearing or vision, no nose bleeds or other nasal problems NECK:Negative for lumps, goiter, pain and significant neck swelling RESPIRATORY: Negative for cough, wheezing or shortness of breath. CARDIOVASCULAR: Negative for chest pain, leg swelling or palpitations. GASTROINTESTINAL: Negative for abdominal discomfort, blood in stools or black stools or change in bowel habits GENITOURINARY: No history of dysuria, frequency or incontinence MUSCULOSKELETAL: Negative for joint pain or swelling, back pain or muscle pain. NEUROLOGIC:Negative for focal numbness or weakness, headaches and dizziness or syncope, vision changes, speech/languag changes - EXCEPT that as per HPI above. SKIN:Negative for lesions, rash, and itching. PSYCHIATRIC: See HPI. LAB/IMAGING: Those performed since patient's last visit have been reviewed. WBC (k/uL) Date Value 12/20/2024 4.75 RBC (m/uL) Date Value 12/20/2024 3.40 (L) Hemoglob (more content not included)... [facility] 02-02-2025 Note HNO ID: [id number] Author: TEE SALDAÑA RT(R) Service: ? Author Type: Technologist Type: Progress Notes Filed: 02/02/2025 11:37 Note Text: Radiology Service Progress Note PATIENT NAME: Jimi Soto DATE OF SERVICE: February 02, 2025 TIME: 11:36 AM PATIENT IDENTITY VERIFICATION COMPLETED USING TWO (2) IDENTIFIERS: Name and Date of confirmed by patient verbally. FALL SCREENING: Has the patient had 2 falls in the last year or 1 fall with injury or currently using an Ambulatory Assistive Device (Walker, Cane, Wheelchair, Crutches, etc.)? No PATIENT GENDER DATA: Assigned male at PATIENT RELEVANT IMPLANT DATA REVIEWED: Yes PATIENT PRESENTS WITH AN IMPLANTABLE OR ATTACHED PLASTIC INJECTION MOLD MAKER: No RADIOLOGY DEPARTMENT: MR; Exam(s) Completed: Head: Routine Brain. Anesthesia: No. Aromatherapy Administered: No PERIPHERAL IV DATA: Not applicable SIGNED BY: RT Flor(R) February 02, 2025 11:36 AM [facility] 01-06-2025 Telephone encount er Note Prescription Refill Information The patient has been identified by name and date of : Yes Caregiver verified no other encounters exist for this prescription request: Yes Caregiver confirmed with patient/requestor that no other refills are due, in the near future, with this provider at this time: Yes The last office visit in the department: 11/17/24 Does the patient have a future office visit with this provider/department: Yes Requested Prescriptions Pending Prescriptions Disp Refills omeprazole (PRILOSEC) 20 mg capsule 90 capsule 1 Sig: Take 1 capsule by mouth daily before breakfast. 1/2 hr before meal. Alaina Orozco January 06, 2025 2:55 PM [facility] 01-06-2025 Miscellaneous Notes Formattin g of this note is different from the original. Prescription Refill Information The patient has been identified by name and date of : Yes Caregiver verified no other encounters exist for this prescription request: Yes Caregiver confirmed with patient/requestor that no other refills are due, in the near future, with this provider at this time: Yes The last office visit in the department: 11/17/24 Does the patient have a future office visit with this provider/department: Yes Requested Prescriptions Pending Prescriptions Disp Refills omeprazole (PRILOSEC) 20 mg capsule 90 capsule 1 Sig: Take 1 capsule by mouth daily before breakfast. 1/2 hr before meal. Alaina Orozco January 06, 2025 2:55 PM documented in this encounter [facility] 12-28-2024 Evaluation note Diagnosis Chronic kidney disease, stage 3a (HCC) Anemia, unspecified documented in this encounter [facility]07-24-2025 Telephone encounter Note* Telephone Encounter - Alicia Becker MA - 11/18/2024 9:18 AM EDT [employer] message with results below viewed by pt's sister. Alicia Becker MA [facility]07-24-2025 Miscellaneous Notes* Telephone Encounter - Alicia Becker MA - 11/18/2024 9:18 AM EDT [employer] message with results below viewed by pt's sister. Alicia Becker MA * Telephone Encounter - Rose Marie Johns APRN.CNP - 11/18/2024 7:12 AM EDT Kidney function decreased a little more from last time but still in stable range. Continue to eat low salt diet, remain hydrated with water and avoid NSAID products. Potassium level was slightly elevated. Would like him to recheck next week to rule out lab error. Rose Marie Johns APRN.CNP [facility] Telephone encounter Note * Telephone Encounter - Rose Marie Johns APRN.CNP - 11/18/2024 7:12 AM EDT Kidney function decreased a little more from last time but still in stable range. Continue to eat low salt diet, remain hydrated with water and avoid NSAID products. Potassium level was slightly elevated. Would like him to recheck next week to rule out lab error. Rose Marie Johns APRN.CNP [facility]07-23-2025 NoteHNO ID: [id number] Author: ROSE MARIE JOHNS APRN.CNP Service: ? Author Type: Nurse Practitioner Type: Progress Notes Filed: 11/17/2024 16:23 Note Text: 11/17/2024 Patient presents with: F/U 6 months SUBJECTIVE: This is a 59 year old that is here today for Above Complaints.. Following with Dr. Dean for neuropathy and will be having US this months CKD: tries to eat low salt diet and stay well hydrated, Avoids NSAID products GERD: taking Pantoprazole as prescribed HYPERLIPIDEMIA: Taking atorvastatin as prescribed without side effects. Tries to eat a low cholesterol diet Bipolar: Follows with Dr. Daniel- has follow-up tomorrow. Ambien decreased recently to 5 mg due to chronic fatigue. Taking medications as prescribed Follows with Dr. Joya, neurology for a hx of cognitive decline, hx of cerebral hemorrhage, and cerebral amyloid angiopathy. Last office visit on 11/05/2024. Will be following up with another neurologist and have repeat MRI in January. PAST MEDICAL HISTORY Diagnosis Date Allergy to environmental factors Dr. Fernandes Anemia Bipolar 1 disorder (HCC) Dr. Stahl Cerebral hemorrhage (HCC) Dr. Joya, Dr. Villavicencio Chronic kidney disease (CKD), stage III (moderate) (HCC) Dr. Arthur Cognitive decline DDD (degenerative disc disease), lumbar Essential hypertension Family history of prostate cancer in father GERD (gastroesophageal reflux disease) Hx of gallstones s/p cholecystectomy Hyperlipidemia Internal hemorrhoids Irritable bowel syndrome Kidney dysfunction LBBB (left bundle branch block) incomplete. Negative echo in 2017. Lumbar spinal stenosis 07/27/2024 OA (osteoarthritis) of knee Obesity (BMI 30.0-34.9) Vitamin D deficiency ALLERGIES Biaxin [Clarithromycin], Depakote [Divalproex Sodium], Fluoxetine, Ibuprofen, Latex, Prozac [Fluoxetine Hcl], Spectazole [Econazole Nitrate], and Wellbutrin [Bupropion Hcl] MEDICATIONS Current Outpatient Medications Medication Sig zolpidem (AMBIEN) 5 mg tablet Take 5 mg by mouth at bedtime as needed. gabapentin (NEURONTIN) 300 mg capsule Take 1 cap in AM and 1 cap in PM. Bisacodyl (DULCOLAX) 5 mg tab Take 5 mg by mouth three times a day as needed for constipation. lamoTRIgine (LAMICTAL) 150 mg tablet Take 300 mg by mouth daily at bedtime. OLANZapine (ZYPREXA) 7.5 mg tablet Take 7.5 mg by mouth daily at bedtime. cholecalciferol (VITAMIN D) 1,000 unit tab tablet Take 1,000 Units by mouth once daily. atorvastatin (LIPITOR) 80 mg tablet Take 1 tablet by mouth once daily. fenofibrate nanocrystallized (TRICOR) 48 mg tablet Take 1 tablet by mouth once daily. omeprazole (PRILOSEC) 20 mg capsule Take 1 capsule by mouth daily before breakfast. 1/2 hr before meal. docusate sodium (COLACE) 100 mg capsule Take 100 mg by mouth twice daily. clonazePAM (KLONOPIN) 1 mg tablet Take 1 mg by mouth at bedtime as needed. venlafaxine XR (EFFEXOR XR) 150 mg tr24 Take by mouth once daily. DULoxetine (CYMBALTA) 60 mg capsule Take 60 mg by mouth twice daily. FERROUS SULFATE (HIGH POTENCY IRON ORAL) Take 1 tablet by mouth once daily. 27 mg daily in the morning cyanocobalamin (VITAMIN B-12) 500 mcg tablet Take 2 tablets by mouth once daily. CARBATROL 300 MG 12 HR CAP Take 600 mg by mouth two times a day with meals. No current facility-administered medications for this visit. Facility-Administered Medications Ordered in Other Visits Medication Dose Route Frequency propofol injection (DIPRIVAN) INTRAVENOUS PRN Medications and allergies reviewed by this provider. SOCIAL HISTORY Social History Tobacco Use Smoking status: Never Smokeless tobacco: Never Substance Use Topics Alcohol use: No Drug use: No REVIEW OF SYSTEMS All other reviewed and negative other than HPI. OBJECTIVE: BP 122/86 Pulse 88 Resp 18 Wt 106.1 kg (233 lb 12.8 oz) SpO2 96% BMI 32.61 kg/m? . Vital signs reviewed by this provider. APPEARANCE Well appearing, alert, in no acute distress, well-hydrated, well nourished. EYES conjunctiva and sclera normal. HEART RRR with normal S1 and S2, no murmurs, no gallops, no JVD appreciated LUNG clear to auscultation. No wheezes, rhonchi or rales EXTREMITIES Extremities normal, No deformities, No skin discoloration, and No edema SKIN Skin color, texture, turgor normal, no suspicious rashes or lesions Latest Ref Rn 05/19/2024 Protein, Total 6.3 - 8.0 g/dL 6.6 Albumin 3.9 - 4.9 g/dL 4.3 Calcium 8.5 - 10.2 mg/dL 9.4 Bilirubin, Total 0.2 - 1.3 mg/dL 0.2 Alkaline Phosphatase 38 - 113 U/L 76 AST 14 - 40 U/L 18 ALT 10 - 54 U/L 14 Glucose 74 - 99 mg/dL 99 BUN 9 - 24 mg/dL 16 Creatinine 0.73 - 1.22 mg/dL 1.46 (H) Sodium 136 - 144 mmol/L 141 Potassium 3.7 - 5.1 mmol/L 4.5 Chloride 98 - 107 mmol/L 103 CO2 22 - 30 mmol/L 27 Anion Gap 8 - 15 mmol/L 11 eGFR >=60 mL/min/1.73m? 55 (L) Latest Ref Rng 03/03/2024 Cholesterol, Total <200 mg/dL 164 Triglyceride <150 mg/dL 119 (more content not included)...[facility]07-23-2025 History of Present illness Narrative* Podlogar, LAUREN Trotter.TRANSPLANT COORDINATOR - 11/17/2024 2:10 PM EDT 11/17/2024 Patient presents with: F/U 6 months SUBJECTIVE: This is a 59 year old that is here today for Above Complaints.. Following with Dr. Dean for neuropathy and will be having US this months CKD: tries to eat low salt diet and stay well hydrated, Avoids NSAID products GERD: taking Pantoprazole as prescribed HYPERLIPIDEMIA: Taking atorvastatin as prescribed without side effects. Tries to eat a low cholesterol diet Bipolar: Follows with Dr. Daniel- has follow-up tomorrow. Ambien decreased recently to 5 mg due to chronic fatigue. Taking medications as prescribed Follows with Dr. Joya, neurology for a hx of cognitive decline, hx of cerebral hemorrhage, and cerebral amyloid angiopathy. Last office visit on 11/05/2024. Will be following up with another neurologist and have repeat MRI in January. PAST MEDICAL HISTORY Diagnosis Date Allergy to environmental factors Dr. Fernandes Anemia Bipolar 1 disorder (HCC) Dr. Stahl Cerebral hemorrhage (HCC) Dr. Joya, Itrmaria alejandra Chronic kidney disease (CKD), stage III (moderate) (HCC) Dr. Arthur Cognitive decline DDD (degenerative disc disease), lumbar Essential hypertension Family history of prostate cancer in father GERD (gastroesophageal reflux disease) Hx of gallstones s/p cholecystectomy Hyperlipidemia Internal hemorrhoids Irritable bowel syndrome Kidney dysfunction LBBB (left bundle branch block) incomplete. Negative echo in 2017. Lumbar spinal stenosis 07/27/2024 OA (osteoarthritis) of knee Obesity (BMI 30.0-34.9) Vitamin D deficiency ALLERGIES Biaxin [Clarithromycin], Depakote [Divalproex Sodium], Fluoxetine, Ibuprofen, Latex, Prozac [Fluoxetine Hcl], Spectazole [Econazole Nitrate], and Wellbutrin [Bupropion Hcl] MEDICATIONS Current Outpatient Medications Medication Sig zolpidem (AMBIEN) 5 mg tablet Take 5 mg by mouth at bedtime as needed. gabapentin (NEURONTIN) 300 mg capsule Take 1 cap in AM and 1 cap in PM. Bisacodyl (DULCOLAX) 5 mg tab Take 5 mg by mouth three times a day as needed for constipation. lamoTRIgine (LAMICTAL) 150 mg tablet Take 300 mg by mouth daily at bedtime. OLANZapine (ZYPREXA) 7.5 mg tablet Take 7.5 mg by mouth daily at bedtime. cholecalciferol (VITAMIN D) 1,000 unit tab tablet Take 1,000 Units by mouth once daily. atorvastatin (LIPITOR) 80 mg tablet Take 1 tablet by mouth once daily. fenofibrate nanocrystallized (TRICOR) 48 mg tablet Take 1 tablet by mouth once daily. omeprazole (PRILOSEC) 20 mg capsule Take 1 capsule by mouth daily before breakfast. 1/2 hr before meal. docusate sodium (COLACE) 100 mg capsule Take 100 mg by mouth twice daily. clonazePAM (KLONOPIN) 1 mg tablet Take 1 mg by mouth at bedtime as needed. venlafaxine XR (EFFEXOR XR) 150 mg tr24 Take by mouth once daily. DULoxetine (CYMBALTA) 60 mg capsule Take 60 mg by mouth twice daily. FERROUS SULFATE (HIGH POTENCY IRON ORAL) Take 1 tablet by mouth once daily. 27 mg daily in the morning cyanocobalamin (VITAMIN B-12) 500 mcg tablet Take 2 tablets by mouth once daily. CARBATROL 300 MG 12 HR CAP Take 600 mg by mouth two times a day with meals. No current facility-administered medications for this visit. Facility-Administered Medications Ordered in Other Visits Medication Dose Route Frequency propofol injection (DIPRIVAN) INTRAVENOUS PRN Medications and allergies reviewed by this provider. SOCIAL HISTORY Social History Tobacco Use Smoking status: Never Smokeless tobacco: Never Substance Use Topics Alcohol use: No Drug use: No REVIEW OF SYSTEMS All other reviewed and negative other than HPI. OBJECTIVE: BP 122/86 Pulse 88 Resp 18 Wt 106.1 kg (233 lb 12.8 oz) SpO2 96% BMI 32.61 kg/m . Vital signs reviewed by this provider. APPEARANCE Well appearing, alert, in no acute distress, well-hydrated, well nourished. EYES conjunctiva and sclera normal. HEART RRR with normal S1 and S2, no murmurs, no gallops, no JVD appreciated LUNG clear to auscultation. No wheezes, rhonchi or rales EXTREMITIES Extremities normal, No deformities, No skin discoloration, and No edema SKIN Skin color, texture, turgor normal, no suspicious rashes or lesions Latest Ref Rng 05/19/2024 Protein, Total 6.3 - 8.0 g/dL 6.6 Albumin 3.9 - 4.9 g/dL 4.3 Calcium 8.5 - 10.2 mg/dL 9.4 Bilirubin, Total 0.2 - 1.3 mg/dL 0.2 Alkaline Phosphatase 38 - 113 U/L 76 AST 14 - 40 U/L 18 ALT 10 - 54 U/L 14 Glucose 74 - 99 mg/dL 99 BUN 9 - 24 mg/dL 16 Creatinine 0.73 - 1.22 mg/dL 1.46 (H) Sodium 136 - 144 mmol/L 141 Potassium 3.7 - 5.1 mmol/L 4.5 Chloride 98 - 107 mmol/L 103 CO2 22 - 30 mmol/L 27 Anion Gap 8 - 15 mmol/L 11 eGFR >=60 mL/min/1.73m 55 (L) Latest Ref Rng 03/03/2024 Cholesterol, Total <200 mg/dL 164 Triglyceride <150 mg/dL 119 HDL Cholesterol >39 mg/dL 43 Non HDL Cholesterol <130 mg/dL 121 Fasting Time hrs 12 VLDL Cholesterol <30 mg/dL 24 TC:HDL Ratio <5.10 3.81 LDL Cholesterol, Calculated <100 mg/dL 97 LDL:HDL Ratio <2.54 2.26 Latest Ref Rng 03/03/2024 Hemoglobin A1C 4.3 - 5.6 % 5.2 Estimated Average Glucose mg/dL 103 Depression Screening Never done Anxiety Screening Never done Medicare Annual Wellness Visit Never done Colorectal Cancer Screening due on 06/15/2024 Prostate Cancer Screening Discussion due on 07/05/2024 Influenza Vaccine(1) due on 12/27/2024 Hemoglobin/Hematocrit due on 03/03/2025 Serum Creatinine due on 05/19/2025 Annual PCP Team Chronic Disease Visit due on 11/17/2025 Diabetes Screening due on 05/19/2027 DTaP,Tdap,Td Vaccine(2 - Td or Tdap) due on 01/18/2028 Lipid Screening due on 03/03/2029 RSV Vaccine(1 - 1-dose 75+ series) due on 2038 Hepatitis C Screening Completed HIV Screening Completed Shingrix Vaccine Completed Pneumococcal Vaccine: 50+ Completed ASSESSMENT/PLAN: 1. Mixed hyperlipidemia - ICD9: 272.2, ICD10: E78.2 (primary diagnosis) - Controlled - Continue current medications - Counseled on healthy diet and regular exercise - Discussed need for and benefit of weight loss. BMI 32.61 kg/(m^2) - Follow up in 6 months, sooner should any other issues arise. 2. Stage 3a chronic kidney disease (HCC) - ICD9: 585.3, ICD10: N18.31 - eGFR: 55 Stable - Counseled on avoiding NSAIDs, adequate hydration - Counseled on low sodium diet - follow-up in 6 months sooner if needed - COMPREHENSIVE METABOLIC PANEL 3. Gastroesophageal reflux disease, unspecified whether esophagitis present - ICD9: 530.81, ICD10: K21.9 - stable on current regime 4. Bipolar affective disorder, current episode mixed, current episode severity unspecified (HCC) - ICD9: 296.60, ICD10: F31.60 - continue current medications and follow-up with psychiatry as recommended 5. Cerebral hemorrhage (HCC) - ICD9: 431, ICD10: I61.9 - follow-up with neurology as scheduled 6. Cerebral amyloid angiopathy (CODE) - ICD9: 277.39, 437.9, ICD10: I68.0 - follow-up with neurology as recommended 7. Cognitive decline - ICD9: 294.9, ICD10: R41.89 - follow-up with neurology as recommended Rose Marie Johns APRN.CNP Prescription instructions reviewed with patient as applicable. Patient advised if symptoms do not improve or if symptoms worsen sooner, to contact their primary care physician. Potential red flag symptoms discussed with the patient. Reviewed appropriate action plan to take if red flag symptoms occur. Patient agreeable to treatment plan. Medical Decision Making: Problems: Moderate: 2+ stable chronic illnesses Risk: Moderate: Moderate risk from testing/treatment Medical Decision Making Level: 4 - Moderate ;c [facility]* Diagnosis Mixed hyperlipidemia- Primary Stage 3a chronic kidney disease (HCC) Gastroesophageal reflux disease, unspecified whether esophagitis present Bipolar affective disorder, current episode mixed, current episode severity unspecified (HCC) Cerebral hemorrhage (HCC) Intracerebral hemorrhage Cerebral amyloid angiopathy (CODE) Cognitive decline Unspecified persistent mental disorders due to conditions classified elsewhere documented in this encounter [facility]07-14-2025 Telephone encounter Note* Telephone Encounter - Crys King LPN - 11/08/2024 12:55 PM EDT Message left for patient to return call or review MC message. Leave encounter open until returns call or reviews message. Crys King LPN [facility]07-14-2025 Miscellaneous Notes* Telephone Encounter - Crys King LPN - 11/08/2024 12:55 PM EDT Message left for patient to return call or review MC message. Leave encounter open until returns call or reviews message. Crys King LPN * Telephone Encounter - Crys King LPN - 11/08/2024 12:48 PM EDT ----- Message from Kel Joya MD sent at 11/08/2024 8:42 AM EDT ----- Please let patient know that labs (levels) are acceptable range. Kel Joya MD [facility] Tele[facility] encounter Note * Telephone Encounter - Crys King LPN - 11/08/2024 12:48 PM EDT ----- Message from Kel Joya MD sent at 11/08/2024 8:42 AM EDT ----- Please let patient know that labs (levels) are acceptable range. Kel Joya MD [facility]07-11-2025 NoteHNO ID: [id number] Author: KEL JOYA JR, MD Service: ? Author Type: Physician Type: Progress Notes Filed: 11/05/2024 15:20 Note Text: ESTABLISHED PATIENT VISIT CHIEF COMPLAINT: Follow Up HISTORY OF PRESENT ILLNESS: Jimi Soto is a 59 year old male, with a PMH significant for and per last office visit with Tanisha REED on 07/06/24: ASSESSMENT/PLAN: 1. Spinal stenosis of lumbar region, unspecified whether neurogenic claudication present - ICD9: 724.02, ICD10: M48.061 (primary diagnosis) 2. Pain in both lower extremities - ICD9: 729.5, ICD10: M79.604, M79.605 Patient originally follow-up for cognitive concerns and abnormal MRI of the brain. However, messaged in on due to concerns of pain in the legs and the back. Was seen in the emergency department [facility] last night, x-ray of the lumbar spine did show some diffuse degeneration patient with history of lumbar issues in the past. Notes history of sciatica as well with similar presentation. Describing onset 2 months ago, has been worsening in severity and occurrence. Notes daily symptoms that present randomly, no trigger that he can think of other than prolonged periods of standing but can also happen when sitting. No bowel or bladder incontinence or saddle anesthesia, no falls with this. No significant weakness. Patient does have some mild sensory changes on exam decreased temperature and vibration of the lower extremities. Decreased Achilles reflexes as well. At this time, due to history of lumbar disease and patient's symptom presentation concern for possible lumbar etiology. However, due to other sensory changes to discuss an EMG and patient is amenable. Due to his history of lumbar stenosis with multiple surgeries in the past we will order MRI of the lumbar spine. Discussed referral to physical therapy but patient would like to think about that. Notes that since has been on the gabapentin since last night his symptoms had completely resolved and like to continue this therapy. Refills for gabapentin were sent for the 300 mg at bedtime. Discussed red flag signs symptoms that would warrant going to the emergency department, patient agrees and understands. Patient to follow-up as planned with Dr. Joya in a month. Per my last visit with patient on 04/30/24: 1. Cerebral hemorrhage (HCC) - ICD9: 431, ICD10: I61.9 (primary diagnosis) 2. Abnormal finding on MRI of brain - ICD9: 793.0, ICD10: R90.89 3. Cognitive decline - ICD9: 294.9, ICD10: R41.89 4. Cerebral amyloid angiopathy (CODE) - ICD9: 277.39, 437.9, ICD10: I68.0 5. Balance problems - ICD9: 781.99, ICD10: R26.89 Patient with abnormal finding of multiple cerebral micro hemorrhages involving all lobes as well as cerebellum. MRI brain finding in the setting of constellation of subjective neuro symptoms as above. Patient also with history of bipolar disorder and use of neuroleptics that could provoke cognitive symptoms (I.e. pseudo dementia) as well as physical impairments (I.e. parkinsonism). Neuro exam unremarkable except for those cognitive deficits noted on MOCA above (mild) as well as masked facies, and changes in gait as per neuro exam above. Primary concern at this time is for Amyloid angiopathy which would explain micro hemorrhages; Amyloid is also associated with other disorders including Alzheimer's disease and Parkinson's. Discussed dx above in detail with patient and his sister including etiology, physiology, med conditions associated. Explained that there is no definitive diagnosis would be autopsy and that dx today is presumptive based on MRI brain and clinical symptoms. Also explained that there is no cure to this condition and treatment would be supportive. Did explain need for control of stroke/hemorrhage risk factors including proper mgmt of disorders such as HTN, DM, HLD, and avoiding other risks such as cigarettes, ETOH... Goal BP <140/90. Goal glucose <140. Advised that patient should avoid, if possible, medications such as anticoagulants as these could increase the risk of bleeding. I will get second opinion from Dr. Villavicencio at [facility]. However, if Dr. Villavicencio agrees, will continue to monitor and control risk factors here at [facility] with patient's PCP. Will consider starting dementia medication such as Namenda if symptoms were to worsen and if all other care providers agree. If patient develops more obvious symptoms of PD, then will need to consider lowering dosing of those meds that lower dopamine levels (used for mood disorders) or adding a medication such as Sinemet but will need to be careful in doing so as either could result in worsening of mood. Per note of Dr. Villavicencio on 08/03/24: Abnormal MRI brain -- evidence of bilateral SWI hypoattenuation in cortical predominant location, without any obvious trigger otherwise. Arguments in favor of CAA include spontaneous development and cortical location of these (more content not included)...[facility]07-11-2025 History of Present illness Narrative* Kel Joya Jr., MD - 11/05/2024 1:45 PM EDT ESTABLISHED PATIENT VISIT CHIEF COMPLAINT: Follow Up HISTORY OF PRESENT ILLNESS: Jimi Soto is a 59 year old male, with a PMH significant for and per last office visit with Tanisha REED on 07/06/24: ASSESSMENT/PLAN: 1. Spinal stenosis of lumbar region, unspecified whether neurogenic claudication present - ICD9: 724.02, ICD10: M48.061 (primary diagnosis) 2. Pain in both lower extremities - ICD9: 729.5, ICD10: M79.604, M79.605 Patient originally follow-up for cognitive concerns and abnormal MRI of the brain. However, messaged in on due to concerns of pain in the legs and the back. Was seen in the emergency department [facility] last night, x-ray of the lumbar spine did show some diffuse degeneration patient with history of lumbar issues in the past. Notes history of sciatica as well with similar presentation. Describing onset 2 months ago, has been worsening in severity and occurrence. Notes daily symptoms that present randomly, no trigger that he can think of other than prolonged periodsof standing but can also happen when sitting. No bowel or bladder incontinence or saddle anesthesia, no falls with this. No significant weakness. Patient does have some mild sensory changes on exam decreased temperature and vibration of the lower extremities. Decreased Achilles reflexes as well. Atthis time, due to history of lumbar disease and patient's symptom presentation concern for possiblelumbar etiology. However, due to other sensory changes to discuss an EMG and patient is amenable. Due to his history of lumbar stenosis with multiple surgeries in the past we will order MRI of the lumbar spine. Discussed referral to physical therapy but patient would like to think about that. Notesthat since has been on the gabapentin since last night his symptoms had completely resolved and like to continue this therapy. Refills for gabapentin were sent for the 300 mg at bedtime. Discussed red flag signs symptoms that would warrant going to the emergency department, patient agrees and understands. Patient to follow-up as planned with Dr. Joya in a month. Per my last visit with patient on 04/30/24: 1. Cerebral hemorrhage (HCC) - ICD9: 431, ICD10: I61.9 (primary diagnosis) 2. Abnormal finding on MRI of brain - ICD9: 793.0, ICD10: R90.89 3. Cognitive decline - ICD9: 294.9, ICD10: R41.89 4. Cerebral amyloid angiopathy (CODE) - ICD9: 277.39, 437.9, ICD10: I68.0 5. Balance problems - ICD9: 781.99, ICD10: R26.89 Patient with abnormal finding of multiple cerebral micro hemorrhages involving all lobes as well ascerebellum. MRI brain finding in the setting of constellation of subjective neuro symptoms as above. Patient also with history of bipolar disorder and use of neuroleptics that could provoke cognitivesymptoms (I.e. pseudo dementia) as well as physical impairments (I.e. parkinsonism). Neuro exam unremarkable except for those cognitive deficits noted on MOCA above (mild) as well as masked facies, and changes in gait as per neuro exam above. Primary concern at this time is for Amyloid angiopathy which would explain micro hemorrhages; Amyloid is also associated with other disorders including Alzheimer's disease and Parkinson's. Discussed dx above in detail with patient and his sister including etiology, physiology, med conditions associated. Explained that there is no definitive diagnosis would be autopsy and that dx today is presumptive based on MRI brain and clinical symptoms. Also explained that there is no cure to this condition and treatment would be supportive. Did explain need for control of stroke/hemorrhage risk factors including proper mgmt of disorders such as HTN, DM, HLD, and avoiding other risks such as cigarettes, ETOH... Goal BP <140/90. Goal glucose <140. Advised that patient should avoid, if possible, medications such as anticoagulants as these could increase the risk of bleeding. I will get second opinion from Dr. Villavicencio at [facility]. However, if Dr. Villavicencio agrees, will continue to monitor and control risk factors here at [facility] with patient's PCP. Will consider startingdementia medication such as Namenda if symptoms were to worsen and if all other care providers agree. If patient develops more obvious symptoms of PD, then will need to consider lowering dosing of those meds that lower dopamine levels (used for mood disorders) or adding a medication such as Sinemetbut will need to be careful in doing so as either could result in worsening of mood. Per note of Dr. Villavicencio on 08/03/24: Abnormal MRI brain -- evidence of bilateral SWI hypoattenuation in cortical predominant location, without any obvious trigger otherwise. Arguments in favor of CAA include spontaneous development and cortical location of these microbleeds, however arguments against the diagnosis include absence of momin perficial siderosis or any macro-hemorrhages. Additionally, there is some association of cerebral microbleeds with CKD which may also be of interest in his case. Cognitive decline -- this is of likely mixed etiology, with an underlying element of pseudodementiaalso playing a significant role. His MRI brain demonstrates only mild atrophy, while his MOCA scores are also reasonable. Additionally, an interictal EEG did not demonstrate evidence of any cortical d ysfunction. LLE pain, and underlying sensory neuropathy -- unclear etiology, only mild lumbosacral disease to explain above. Some of his ambulatory difficulties may be related to same, and also question underlying EPS secondary to chronic Olanzipine use (particularly with gait issues). CKD -- of unclear etiology. PLAN Recommend checking repeat MRI brain in 6 months to evaluate for any interval change in microbleed burden. Continued close follow up with Dr Joya, as well as his psychiatry team for symptom management. Discussed importance of close BP monitoring and target close to 120/80. Avoiding use of any antiplatelet/anticoagulation unless cleared from stroke neurology perspective Follow up in 6 months post MRI MRI L spine on 07/20/24: Mild canal stenosis at L3-4. Bony foraminal stenosis at L3-4 through L5-S1 as outlined above. L3-L4: Minimal disc osteophyte complex and prominent epidural fat causing mild compromise of the thecal sac. Facet degenerative changes and rostrocaudal facet subluxation cause mild right foraminal stenosis. Left neural foramen is patent. L4-L5: Mild osteophyte formation and facet degenerative changes without significant canal stenosis. Facet degenerative changes and rostrocaudal facet subluxation cause moderate bilateral foraminal stenosis. L5-S1: Mild disc osteophyte complex abutting the exiting S1 nerve root sleeves. No impact on the thecal sac. Facet degenerative changes and rostrocaudal facet subluxation cause severe bilateral foraminal stenosis. EMG 07/19/24: Sensory polyneuropathy affecting bilateral lower extremities as indicated by absent sensory responses bilaterally, without the involvement of motor fibers (normal motor conduction studies). There is no significant evidence of lumbar radiculopathy in the left lower extremity Hemoglobin A1C (%) Date Value 03/03/2024 5.2 03/28/2021 5.5 TSH Date Value Ref Range Status 07/23/2023 1.990 0.270 - 4.200 mIU/L Final Vitamin B12 Date Value Ref Range Status 07/21/2024 1,376 (H) 232 - 1,245 pg/mL Final SPEP negative EEG 07/15/24: This awake only EEG is within normal limits. No epileptiform discharges or EEG seizures were seen during this recording. Patient some good days and some bad days. Sometimes feels fatigued. Psych felt possibly due to meds. Does snore. Sleep is good. No issues falling asleep even since psychiatry reduced ambien to half the dose. Pt feels he would be able to comply with an HSAT. Reports still having discomfort in legs and hips. Feels like pain going from top to bottom. Also with foot pain. Gabapentin helped a lot - 300mg QHS. Pain without pain when sleeping at night. Pain progresses as day goes on. Still having short term memory issues. Unclear if having a bad day then good day... versus progression over time. States bad days are impacting mood. Patient is squinting my R eye more. Has appt scheduled with ophtho. Not present on my exam. MODIFIED MOCA: Immediate recall: 08/30 Number repeat: 05/30 Sentence repeat: 05/30 Serial 7s: 04/30 Abstract: 05/30 Orientation: 10/01 Namin/3 Delayed recall: 08/30 Clock draw: 3/3 Cube copy: 0 REVIEW OF SYSTEMS GENERAL:No weight loss, malaise or fevers. HEENT:Negative for frequent or significant headaches, No changes in hearing or vision, no nose bleeds or other nasal problems NECK:Negative for lumps, goiter, pain and significant neck swelling RESPIRATORY: Negative for cough, wheezing or shortness of breath. CARDIOVASCULAR: Negative for chest pain, leg swelling or palpitations. GASTROINTESTINAL: Negative for abdominal discomfort, blood in stools or black stools or change in bowel habits GENITOURINARY: No history of dysuria, frequency or incontinence MUSCULOSKELETAL: Negative for joint pain or swelling, back pain or muscle pain. NEUROLOGIC:Negative for focal numbness or weakness, headaches and dizziness or syncope, vision changes, speech/languag changes - EXCEPT that as per HPI above. SKIN:Negative for lesions, rash, and itching. PSYCHIATRIC: Negative for sleep disturbance, mood disorder and recent psychosocial stressors. HEMATOLOGIC/LYMPHATIC/IMMUNOLOGIC:Negative for prolonged bleeding, bruising easily or swollen nodes. ENDOCRINE: Negative for cold or heat intolerance, polyuria, polydipsia and goiter. The remainder of the ROS was reviewed and is negative. LAB/IMAGING: Those performed since patient's last visit have been reviewed. WBC (k/uL) Date Value 03/03/2024 3.65 (L) RBC (m/uL) Date Value 03/03/2024 3.19 (L) Hemoglobin (g/dL) Date Value 03/03/2024 11.6 (L) Hematocrit (%) Date Value 03/03/2024 34.8 (L) MCV (fL) Date Value 03/03/2024 109.1 (H) MCH (pg) Date Value 03/03/2024 36.4 (H) MCHC (g/dL) Date Value 03/03/2024 33.3 RDW-CV (%) Date Value 03/03/2024 13.0 Platelet Count (k/uL) Date Value 03/03/2024 200 MPV (fL) Date Value 03/03/2024 10.1 Glucose (mg/dL) Date Value 05/19/2024 99 BUN (mg/dL) Date Value 05/19/2024 16 Creatinine (mg/dL) Date Value 05/19/2024 1.46 (H) Sodium (mmol/L) Date Value 05/19/2024 141 Potassium (mmol/L) Date Value 05/19/2024 4.5 Chloride (mmol/L) Date Value 05/19/2024 103 CO2 (mmol/L) Date Value 05/19/2024 27 Protein, Total (g/dL) Date Value 07/21/2024 6.0 (L) Albumin (g/dL) Date Value 05/19/2024 4.3 Calcium, Total (mg/dL) Date Value 05/19/2024 9.4 Alkaline Phosphatase (U/L) Date Value 05/19/2024 76 Bilirubin, Total (mg/dL) Date Value 05/19/2024 0.2 AST (U/L) Date Value 05/19/2024 18 ALT (U/L) Date Value 05/19/2024 14 MARILYN (no units) Date Value 07/21/2024 Negative Hep C Antibody IA (no units) Date Value 02/16/2018 Negative URINALYSIS Specific [place], Ur Date Value Ref Range Status 02/26/2018 1.010 1.005 - 1.030 Final Glucose, Urine Date Value Ref Range Status 02/26/2018 Negative Negative mg/dL Final Bilirubin, Urine Date Value Ref Range Status 02/26/2018 Negative Negative Final Ketones, Urine Date Value Ref Range Status 02/26/2018 Negative Negative Final Hemoglobin/Blood,Ur Date Value Ref Range Status 02/26/2018 Negative Negative Final Protein, Urine Date Value Ref Range Status 02/26/2018 Negative Negative mg/dL Final WBC, Urine Date Value Ref Range Status 02/26/2018 0-5 0 - 5 /HPF Final MEDICATIONS: Bisacodyl (DULCOLAX) 5 mg tab^Take 5 mg by mouth three times a day as needed for constipation.^Disp: ^Rfl: lamoTRIgine (LAMICTAL) 150 mg tablet^Take 300 mg by mouth daily at bedtime.^Disp: ^Rfl: OLANZapine (ZYPREXA) 7.5 mg tablet^Take 7.5 mg by mouth daily at bedtime.^Disp: ^Rfl: cholecalciferol (VITAMIN D) 1,000 unit tab tablet^Take 1,000 Units by mouth once daily.^Disp: ^Rfl: gabapentin (NEURONTIN) 300 mg capsule^Take 1 capsule by mouth daily at bedtime for 90 days.^Disp: 90 capsule^Rfl: 0 atorvastatin (LIPITOR) 80 mg tablet^Take 1 tablet by mouth once daily.^Disp: 90 tablet^Rfl: 1 fenofibrate nanocrystallized (TRICOR) 48 mg tablet^Take 1 tablet by mouth once daily.^Disp: 90 tablet^Rfl: 1 omeprazole (PRILOSEC) 20 mg capsule^Take 1 capsule by mouth daily before breakfast. 1/2 hr before meal.^Disp: 90 capsule^Rfl: 1 cholecalciferol, Vitamin D3, (VITAMIN D3) 1,250 mcg (50,000 unit) cap capsule^Take 1 capsule by mouth one time a week.^Disp: 12 capsule^Rfl: 0 docusate sodium (COLACE) 100 mg capsule^Take 100 mg by mouth twice daily.^Disp: ^Rfl: OLANZapine (ZYPREXA) 10 mg tablet^Take 2 tablets by mouth daily at bedtime.^Disp: ^Rfl: clonazePAM (KLONOPIN) 1 mg tablet^Take 1 mg by mouth at bedtime as needed.^Disp: ^Rfl: zolpidem (AMBIEN) 10 mg tab^Take by mouth at bedtime as needed.^Disp: ^Rfl: venlafaxine XR (EFFEXOR XR) 150 mg tr24^Take by mouth once daily.^Disp: ^Rfl: DULoxetine (CYMBALTA) 60 mg capsule^Take 60 mg by mouth twice daily.^Disp: ^Rfl: FERROUS SULFATE (HIGH POTENCY IRON ORAL)^Take 1 tablet by mouth once daily. 27 mg daily in the morning^Disp: ^Rfl: cyanocobalamin (VITAMIN B-12) 500 mcg tablet^Take 2 tablets by mouth once daily.^Disp: ^Rfl: CARBATROL 300 MG 12 HR CAP^Take 600 mg by mouth two times a day with meals.^Disp: ^Rfl: 0 HISTORIES PAST MEDICAL HISTORY Diagnosis Date Allergy to environmental factors Dr. Fernandes Anemia Bipolar 1 disorder (HCC) Dr. Stahl Cerebral hemorrhage (HCC) Dr. Joya, Dr. Villavicencio Chronic kidney disease (CKD), stage III (moderate) (HCC) Dr. Arthur Cognitive decline DDD (degenerative disc disease), lumbar Essential hypertension Family history of prostate cancer in father GERD (gastroesophageal reflux disease) Hx of gallstones s/p cholecystectomy Hyperlipidemia Internal hemorrhoids Irritable bowel syndrome Kidney dysfunction LBBB (left bundle branch block) incomplete. Negative echo in 2018. Lumbar spinal stenosis 07/27/2024 OA (osteoarthritis) of knee Obesity (BMI 30.0-34.9) Vitamin D deficiency FAMILY HISTORY Problem Relation Age of Onset Cancer Father prostate, skin cancer Hypertension Father Coronary Artery Disease Mother stroke and mi Diabetes Mother Heart Sister [place] age 50s Mental illness Brother suicide Mental illness Brother Heart Maternal Grandmother Diabetes Maternal Grandmother Breast Cancer Paternal Grandmother Mental illness Brother hunting accident SOCIAL HISTORY Social History Tobacco Use Smoking status: Never Smokeless tobacco: Never Substance Use Topics Alcohol use: No Drug use: No PHYSICAL EXAMINATION There were no vitals taken for this visit. GENERAL EXAM: General appearance: NAD, pleasant. HEENT: NC/AT, nasal congestion absent, no oral lesions, membranes moist. NECK: No masses, supple. Lungs: CTA bilaterally. No wheezes present. CV: RRR nl S1, S2, no murmurs. No carotid bruits. Abd: Soft, nontender, nondistended. Bowel sounds present. Extr: No cyanosis, clubbing or edema. No evidence of fasciculations. Extremity pulses palpable and normal. Skin: Cool to touch. No rash. NEUROLOGICAL EXAM: General: Awake, alert, oriented x3 (person,place,time), speech fluent, no dysarthria; comprehension, naming, repetition intact. Short and shelter memory intact. Fund of knowledge grossly normal by MOCA. CN: PERRL, fundi appear normal including no evidence of papilledema, EOMI and without nystagmus, VFF to confrontation, facial sensation and strength are normal and symmetric, hearing is intact to finger rub bilaterally, palate and tongue movements are intact and symmetric. SCM and trapezius strength normal. Motor: Normal tone, bulk and strength (5/5) bilaterally (throughout extremities x4). Reflexes: 2/4 and symmetric, plantar stimulation is flexor. Coordination: FNF, AMANDA, HTS intact. No tremors. Sensation: LT, PP, vibration, temperature intact throughout. No evidence of neglect. Gait: Narrow based and stable with normal stride and arm swing. Normal tandem. Romberg normal. Assessment and Plan: ASSESSMENT/PLAN: 1. Encounter for long-term (current) use of medications - ICD9: V58.69, ICD10: Z79.899 (primary diagnosis) 2. Cognitive decline - ICD9: 294.9, ICD10: R41.89 3. Abnormal finding on MRI of brain - ICD9: 793.0, ICD10: R90.89 4. Cerebral amyloid angiopathy (CODE) - ICD9: 277.39, 437.9, ICD10: I68.0 Etiology of cognitive decline remains unknown. However, patient did score higher on the MOCA today than last visit, perhaps suggesting that in fact cognitive complaints are due to other medical and mood disorders. Still, finding of possible CAA on prior MRI brain. Agree with Dr. Villavicencio on repeating MRI brain later this year. Await those findings. Given overall improvement, will not initiate a dementia medication at this time such as Aricept or Namenda. Follow up in February to see if remains stable. By that time should also have repeat MRI results. 5. watermaster current use of 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 - ICD9: V58.69, ICD10: Z79.899 Possible cause of other complaints including cognition/fatigue/sleepiness. Will check levels of Lamictal and Carbamazepine to confirm not supra therapeutic. 6. Malaise and fatigue - ICD9: 780.79, ICD10: R53.81, R53.83 #5 as above and see below regarding possible MAXIMUS. 7. Spinal stenosis of lumbar region, unspecified whether neurogenic claudication present - ICD9: 724.02, ICD10: M48.061 8. Neuropathy - ICD9: 355.9, ICD10: G62.9 Pain appears unchanged from last visit. Has symptoms suggestive of both L spine and neuropathy etiology. No weakness. Pain improved with gabapentin. Will increase gabapentin dose to 300mg BID. 9. Snoring - ICD9: 786.09, ICD10: R06.83 10. Daytime sleepiness - ICD9: 780.54, ICD10: R40.0 11. Sleep apnea-like behavior - ICD9: 780.59, ICD10: G47.39 12. MAXIMUS (obstructive sleep apnea) - ICD9: 327.23, ICD10: G47.33 Tired and sleepy. Does have risk factors for MAXIMUS including BMI >30 and crowded airway. Symptoms of snoring. Dry mouth at night. Will get HSAT to further evaluate. Discussed with patient: the physiology of OSAS, medical conditions associated with OSAS (DM, HTN, CAD, Depression, Stroke, Headache...) and treatment options (UPPP, Dental appliances, CPAP...). Advised patient to avoid activities that could harm self or others when tired/sleepy, including driving and/or operating heavy machinery. Encouraged weight loss, and continued compliance with other medications. Kel Joya MD I spent a total of 55 minutes on the date of the service which included preparing to see the patient, [id number] patient care, completing clinical documentation, obtaining and/or reviewing separately obtained history, performing a medically appropriate examination, counseling and educating the pat ient/family/caregiver, ordering medications, tests, or procedures, independently interpreting results (not separately reported), and communicating results to the patient/family/caregiver. documented in this encounterK[facility] NoteHNO ID: [id number] Author: TESSIE DEAN, ? Service: ? Author Type: Physician Type: Progress Notes Filed: 11/01/2024 23:07 Note Text: Consultation requested by Dr. Johns for an opinion regarding foot pain. My final recommendations will be communicated back to the requesting physician by way of shared Medical record or letter to requesting physician via [place] mail. Subjective Jimi Soto is a 59-year-old male with a history of neuropathy, presenting for evaluation of chronic foot pain. Foot Pain: - Chronic pain in the entire plantar surface of the foot, including the ball of the foot, x1 year. - Pain is worse when barefoot. - Denies heel pain. - Currently taking gabapentin, which provides some relief but pain persists. - Has a known heel spur on one foot. - Denies smoking. Musculoskeletal: (+) bilateral plantar foot pain worse when walking barefoot, (-) tenderness to focal palpation of plantar surface PAST MEDICAL HISTORY Diagnosis Date Allergy to environmental factors Dr. Fernandes Anemia Bipolar 1 disorder (HCC) Dr. tSahl Cerebral hemorrhage ([facility]) Dr. Joya, Dr. Villavicencio Chronic kidney disease (CKD), stage III (moderate) ([facility]) Dr. Arthur Cognitive decline DDD (degenerative disc disease), lumbar Essential hypertension Family history of prostate cancer in father GERD (gastroesophageal reflux disease) Hx of gallstones s/p cholecystectomy Hyperlipidemia Internal hemorrhoids Irritable bowel syndrome Kidney dysfunction LBBB (left bundle branch block) incomplete. Negative echo in 2018. Lumbar spinal stenosis 07/27/2024 OA (osteoarthritis) of knee Obesity (BMI 30.0-34.9) Vitamin D deficiency Current Outpatient Medications Medication Sig Dispense Refill Bisacodyl (DULCOLAX) 5 mg tab Take 5 mg by mouth three times a day as needed for constipation. lamoTRIgine (LAMICTAL) 150 mg tablet Take 300 mg by mouth daily at bedtime. OLANZapine (ZYPREXA) 7.5 mg tablet Take 7.5 mg by mouth daily at bedtime. cholecalciferol (VITAMIN D) 1,000 unit tab tablet Take 1,000 Units by mouth once daily. gabapentin (NEURONTIN) 300 mg capsule Take 1 capsule by mouth daily at bedtime for 90 days. 90 capsule 0 atorvastatin (LIPITOR) 80 mg tablet Take 1 tablet by mouth once daily. 90 tablet 1 fenofibrate nanocrystallized (TRICOR) 48 mg tablet Take 1 tablet by mouth once daily. 90 tablet 1 omeprazole (PRILOSEC) 20 mg capsule Take 1 capsule by mouth daily before breakfast. 1/2 hr before meal. 90 capsule 1 docusate sodium (COLACE) 100 mg capsule Take 100 mg by mouth twice daily. clonazePAM (KLONOPIN) 1 mg tablet Take 1 mg by mouth at bedtime as needed. zolpidem (AMBIEN) 10 mg tab Take by mouth at bedtime as needed. venlafaxine XR (EFFEXOR XR) 150 mg tr24 Take by mouth once daily. DULoxetine (CYMBALTA) 60 mg capsule Take 60 mg by mouth twice daily. FERROUS SULFATE (HIGH POTENCY IRON ORAL) Take 1 tablet by mouth once daily. 27 mg daily in the morning cyanocobalamin (VITAMIN B-12) 500 mcg tablet Take 2 tablets by mouth once daily. CARBATROL 300 MG 12 HR CAP Take 600 mg by mouth two times a day with meals. 0 cholecalciferol, Vitamin D3, (VITAMIN D3) 1,250 mcg (50,000 unit) cap capsule Take 1 capsule by mouth one time a week. 12 capsule 0 OLANZapine (ZYPREXA) 10 mg tablet Take 2 tablets by mouth daily at bedtime. No current facility-administered medications for this visit. Facility-Administered Medications Ordered in Other Visits Medication Dose Route Frequency Provider Last Rate Last Admin propofol injection (DIPRIVAN) INTRAVENOUS PRN [place], Will, SAL[employer] REPRESENTATIVE.REQUIREMENTS ENGINEER 50 mg at 08/22/22 1240 Family History Problem Relation Age of Onset Cancer Father prostate, skin cancer Hypertension Father Coronary Artery Disease Mother stroke and mi Diabetes Mother Heart Sister [place] age 50s Mental illness Brother suicide Mental illness Brother Heart Maternal Grandmother Diabetes Maternal Grandmother Breast Cancer Paternal Grandmother Mental illness Brother hunting accident Objective There were no vitals taken for this visit. - Cardiovascular: Dorsalis pedis and posterior tibial pulses faint to non-palpable bilaterally; capillary refill time <5 seconds; skin temperature warm proximally, cool distally; absence of hair growth on lower extremities. - Skin: No open sores bilaterally; slight thickening of heels medially and plantar first metatarsal; no ulcerations or calluses noted; small abrasion on the bottom of the big toe. - Neurological: Protective sensation intact bilaterally; vibratory sensation absent bilaterally. Imaging: - X-rays of left foot: Posterior heel spur. No acute fractures identified. Assessment AND Plan 1. Neuropathy (G62.9) - Neuropathy likely contributing to foot pain; currently managed with gabapentin. - Advised continuation of gabapentin. - Discussed additional options including topical pain creams and orthotic inserts; pa (more content not included)...[facility]07-07-[facility]25 History of Present illness Narrative* Jermaine Tessie - 11/01/2024 11:06 PM EDT Consultation requested by Dr. Johns for an opinion regarding foot pain. My final recommendationswill be communicated back to the requesting physician by way of shared Medical record or letter to requesting physician via [place] mail. Subjective Jimi Soto is a 59-year-old male with a history of neuropathy, presenting for evaluation of chronic foot pain. Foot Pain: - Chronic pain in the entire plantar surface of the foot, including the ball of the foot, x1 year. - Pain is worse when barefoot. - Denies heel pain. - Currently taking gabapentin, which provides some relief but pain persists. - Has a known heel spur on one foot. - Denies smoking. Musculoskeletal: (+) bilateral plantar foot pain worse when walking barefoot, (- ) tenderness to focal palpation of plantar surface PAST MEDICAL HISTORY Diagnosis Date Allergy to environmental factors Dr. Fernandes Anemia Bipolar 1 disorder (HCC) Dr. Stahl Cerebral hemorrhage ([facility]) Dr. Joya, Dr. Villavicencio Chronic kidney disease (CKD), stage III (moderate) ([facility]) Dr. Arthur Cognitive decline DDD (degenerative disc disease), lumbar Essential hypertension Family history of prostate cancer in father GERD (gastroesophageal reflux disease) Hx of gallstones s/p cholecystectomy Hyperlipidemia Internal hemorrhoids Irritable bowel syndrome Kidney dysfunction LBBB (left bundle branch block) incomplete. Negative echo in 2018. Lumbar spinal stenosis 07/27/2024 OA (osteoarthritis) of knee Obesity (BMI 30.0-34.9) Vitamin D deficiency Current Outpatient Medications Medication Sig Dispense Refill Bisacodyl (DULCOLAX) 5 mg tab Take 5 mg by mouth three times a day as needed for constipation. lamoTRIgine (LAMICTAL) 150 mg tablet Take 300 mg by mouth daily at bedtime. OLANZapine (ZYPREXA) 7.5 mg tablet Take 7.5 mg by mouth daily at bedtime. cholecalciferol (VITAMIN D) 1,000 unit tab tablet Take 1,000 Units by mouth once daily. gabapentin (NEURONTIN) 300 mg capsule Take 1 capsule by mouth daily at bedtime for 90 days. 90 capsule 0 atorvastatin (LIPITOR) 80 mg tablet Take 1 tablet by mouth once daily. 90 tablet 1 fenofibrate nanocrystallized (TRICOR) 48 mg tablet Take 1 tablet by mouth once daily. 90 tablet 1 omeprazole (PRILOSEC) 20 mg capsule Take 1 capsule by mouth daily before breakfast. 1/2 hr before meal. 90 capsule 1 docusate sodium (COLACE) 100 mg capsule Take 100 mg by mouth twice daily. clonazePAM (KLONOPIN) 1 mg tablet Take 1 mg by mouth at bedtime as needed. zolpidem (AMBIEN) 10 mg tab Take by mouth at bedtime as needed. venlafaxine XR (EFFEXOR XR) 150 mg tr24 Take by mouth once daily. DULoxetine (CYMBALTA) 60 mg capsule Take 60 mg by mouth twice daily. FERROUS SULFATE (HIGH POTENCY IRON ORAL) Take 1 tablet by mouth once daily. 27 mg daily in the morning cyanocobalamin (VITAMIN B-12) 500 mcg tablet Take 2 tablets by mouth once daily. CARBATROL 300 MG 12 HR CAP Take 600 mg by mouth two times a day with meals. 0 cholecalciferol, Vitamin D3, (VITAMIN D3) 1,250 mcg (50,000 unit) cap capsule Take 1 capsule by mouth one time a week. 12 capsule 0 OLANZapine (ZYPREXA) 10 mg tablet Take 2 tablets by mouth daily at bedtime. No current facility-administered medications for this visit. Facility-Administered Medications Ordered in Other Visits Medication Dose Route Frequency Provider Last Rate Last Admin propofol injection (DIPRIVAN) INTRAVENOUS PRN Will Lockett APRN.REQUIREMENTS ENGINEER 50 mg at 08/22/22 1240 Family History Problem Relation Age of Onset Cancer Father prostate, skin cancer Hypertension Father Coronary Artery Disease Mother stroke and mi Diabetes Mother Heart Sister [place] age 50s Mental illness Brother suicide Mental illness Brother Heart Maternal Grandmother Diabetes Maternal Grandmother Breast Cancer Paternal Grandmother Mental illness Brother hunting accident Objective There were no vitals taken for this visit. - Cardiovascular: Dorsalis pedis and posterior tibial pulses faint to non- palpable bilaterally; capillary refill time <5 seconds; skin temperature warm proximally, cool distally; absence of hair growth on lower extremities. - Skin: No open sores bilaterally; slight thickening of heels medially and plantar first metatarsal; no ulcerations or calluses noted; small abrasion on the bottom of the big toe. - Neurological: Protective sensation intact bilaterally; vibratory sensation absent bilaterally. Imaging: - X-rays of left foot: Posterior heel spur. No acute fractures identified. Assessment & Plan 1. Neuropathy (G62.9) - Neuropathy likely contributing to foot pain; currently managed with gabapentin. - Advised continuation of gabapentin. - Discussed additional options including topical pain creams and orthotic inserts; patient declined. - Recommended wearing supportive footwear. - patient declined topical medication 2. Diminished pulses in lower extremity (R09.89) - Faint to non-palpable dorsalis pedis and posterior tibial pulses bilaterally on exam. - Ordered pulse volume recording (PVR) to assess circulation. 3. Abrasion (T14.8XXA) - Small abrasion noted on the bottom of the big toe. - Trimmed surrounding area as courtesy to prevent further tearing. - Applied topical antibiotic; advised patient to continue application until healed. Recording using [employer] software for draft documentation of the visit was discussed with the patient/authorized patient admitting representative; all questions welcomed and answered. Patient/authorized patient admitting representative agreed to proceed Tessie Dean DPM * Alissa Holt RN - 11/01/2024 8:47 AM EDT Patient presents with: Left Foot - New, Pain Right Foot - New, Pain Patient presents for left foot pain that began a few months ago. States that he has a history of neuropathy primarily to legs (chart shows spinal stenosis of lumbar with neurogenic claudication) and sometimes has pain to bilateral feet. Pain sometimes to heels, and bottom of the foot. Denies any pain today. XRay of left foot done 09/28/24 documented in this encounterK[facility] Instructions* Patient Instructions* Tessie Dean - 11/01/2024 9:20 AM EDT - Continue taking gabapentin as prescribed for your foot pain. - Apply the topical antibiotic ointment to the scrape on your big toe until it heals; you may coverit with a band?aid if you prefer. - Use lotion on your feet daily to keep the skin moisturized. - Keep wearing your current supportive shoes. - Complete the pulse volume recording (PVR) study to check circulation in your feet; the clinic will contact you to schedule this test. - Contact the office if your foot pain worsens or if you notice any new problems. documented in this encounterK[facility]07-[facility]25 NoteHNO ID: [id number] Author: ALISSA HOLT, RN Service: ? Author Type: Registered Nurse Type: Progress Notes Filed: 11/01/2024 23:07 Note Text: Patient presents with: Left Foot - New, Pain Right Foot - New, Pain Patient presents for left foot pain that began a few months ago. States that he has a history of neuropathy primarily to legs (chart shows spinal stenosis of lumbar with neurogenic claudication) and sometimes has pain to bilateral feet. Pain sometimes to heels, and bottom of the foot. Denies any pain today. XRay [facility] left foot done [facility]24[facility] Telephone encounter Note* Telephone Encounter - Dariela Bobby OCCA - 10/18/2024 11:20 AM EDT Prescription Refill Information The patient has been identified by name and date of : Yes Caregiver verified no other encounters exist for this prescription request: Yes Caregiver confirmed with patient/requestor that no other refills are due, in the near future, with this provider at this time: Yes The last office visit in the department: 07/06/2024 with Nolan Reynolds MRI of the lumbar spine Physical therapy for the low back Continue with gabapentin 300mg at bedtime EMG of leg Follow up as planned with Dr. Joya next month Go to the ER with any worsening weakness, falls, losing control of bowel or bladder function Does the patient have a future office visit with this provider/department: Yes, 11/05/[address] Joya Requested Prescriptions Pending Prescriptions Disp Refills gabapentin (NEURONTIN) 300 mg capsule [Pharmacy Med Name: GABAPENTIN 300 MG CAPSULE] 30 capsule 2 Sig: Take 1 capsule by mouth daily at bedtime. GERALDO Bliss October 18, 2024 11:20 AM [facility]06-23-2025 Miscellaneous Notes* Telephone Encounter - Dariela Bobby OCCA - 10/18/2024 11:20 AM EDT Prescription Refill Information The patient has been identified by name and date of : Yes Caregiver verified no other encounters exist for this prescription request: Yes Caregiver confirmed with patient/requestor that no other refills are due, in the near future, with this provider at this time: Yes The last office visit in the department: 07/06/2024 with Nolan Reynolds MRI of the lumbar spine Physical therapy for the low back Continue with gabapentin 300mg at bedtime EMG of leg Follow up as planned with Dr. Joya next month Go to the ER with any worsening weakness, falls, losing control of bowel or bladder function Does the patient have a future office visit with this provider/department: Yes, 11/05/[address] Joya Requested Prescriptions Pending Prescriptions Disp Refills gabapentin (NEURONTIN) 300 mg capsule [Pharmacy Med Name: GABAPENTIN 300 MG CAPSULE] 30 capsule 2 Sig: Take 1 capsule by mouth daily at bedtime. GERALDO Bliss October 18, 2024 11:20 AM documented in [facility] encounterK[facility] Telephone encounter Note * Telephone Encounter - Crys King LPN - 09/29/2024 8:44 AM EDT Phoned patient and advised him referral was placed and he could schedule with podiatry at any time.Patient voiced understanding. Crys King LPN [facility]06-04-2025 Miscellaneous Notes* Telephone Encounter - Crys King LPN - 09/29/2024 8:44 AM EDT Phoned patient and advised him referral was placed and he could schedule with podiatry at any time.Patient voiced understanding. Crys King LPN * Telephone Encounter - Crys King LPN - 09/29/2024 8:42 AM EDT ----- Message from Rose Marie Johns APRN.CNP sent at 09/29/2024 7:39 AM EDT ----- I placed consult to podiatry yesterday for him. Rose Marie Johns APRN.CNP documented in this encounterK[facility] Telephone encounter Note * Telephone Encounter - Crys King LPN - 09/29/2024 8:42 AM EDT ----- Message from Rose Marie Johns APRN.CNP sent at 09/29/2024 7:39 AM EDT ----- I placed consult to podiatry yesterday for him. Rose Marie Podlogar, SALES SOLUTIONS REPRESENTATIVE.TRANSPLANT COORDINATOR [facility]2025 History of Present illness Narrative* Ruth Spain RT(R) - 09/28/2024 9:40 AM EDT Radiology Service Progress Note PATIENT NAME: Jimi Soto DATE OF SERVICE: September 28, 2024 TIME: 9:45 AM PATIENT IDENTITY VERIFICATION COMPLETED USING TWO (2) IDENTIFIERS: Name and Date of confirmedby patient verbally. FALL SCREENING: Has the patient had 2 falls in the last year or 1 fall with injury or currently using an Ambulatory Assistive Device (Walker, Cane, Wheelchair, Crutches, etc.)? No PATIENT GENDER DATA: Assigned male at PATIENT RELEVANT IMPLANT DATA REVIEWED: Not Applicable PATIENT PRESENTS WITH AN IMPLANTABLE OR ATTACHED PLASTIC INJECTION MOLD MAKER: No RADIOLOGY DEPARTMENT: General X-ray: Exam(s) Completed: Lower Extremity X- Ray(s): Foot, Left and Wt. Bearing PERIPHERAL IV DATA: Not applicable SIGNED BY: RT Cuauhtemoc(R) September 28, 2024 9:45 AM documented in this encounterK[facility]2025 NoteHNO ID: [id number] Author: RUTH SPAIN RT(R) Service: Radiology Author Type: Technologist Type: Progress Notes Filed: 09/28/2024 09:55 Note Text: Radiology Service Progress Note PATIENT NAME: Jimi Soto DATE OF SERVICE: September 28, 2024 TIME: 9:45 AM PATIENT IDENTITY VERIFICATION COMPLETED USING TWO (2) IDENTIFIERS: Name and Date of confirmed by patient verbally. FALL SCREENING: Has the patient had 2 falls in the last year or 1 fall with injury or currently using an Ambulatory Assistive Device (Walker, Cane, Wheelchair, Crutches, etc.)? No PATIENT GENDER DATA: Assigned male at PATIENT RELEVANT IMPLANT DATA REVIEWED: Not Applicable PATIENT PRESENTS WITH AN IMPLANTABLE OR ATTACHED PLASTIC INJECTION MOLD MAKER: No RADIOLOGY DEPARTMENT: General X-ray: Exam(s) Completed: Lower Extremity X-Ray(s): Foot, Left and Wt. Bearing PERIPHERAL IV DATA: Not applicable SIGNED BY: RT Cuauhtemoc(R) September 28, 2024 9:45 [facility]2025 Instructions* Patient Instructions* Rose Marie Johns APRN.CNP - 09/28/2024 9:33 AM EDT May soak foot in warm water. Apply neosporin cream to area and watch for any redness, excessive warmth, swelling or drainage from area- return to office if this occurs. For fast spreading redness, increasing pain, or fevers go to ER documented in this encounterK[facility]2025 NoteHNO ID: [id number] Author: ROSE MARIE JOHNS APRN.KUSH Service: ? Author Type: Nurse Practitioner Type: Progress Notes Filed: 09/28/2024 09:42 Note Text: 09/28/2024 Patient presents with: Foreign Body: To left heel, noticed last night. SUBJECTIVE: This is a 59 year old that is here today for Above Complaints.. Last night had some pain to left heel and thinks maybe he has something under the skin. Denies fevers, chills, redness, excessive warmth, open skin area or drainage from area. Does not remember any trauma to area. Walks inside barefoot. PAST MEDICAL HISTORY Diagnosis Date Allergy to environmental factors Dr. Fernandes Anemia Bipolar 1 disorder (HCC) Dr. Stahl Cerebral hemorrhage (HCC) Dr. Joya, Dr. Villavicencio Chronic kidney disease (CKD), stage III (moderate) ([facility]) Dr. Arthur Cognitive decline DDD (degenerative disc disease), lumbar Essential hypertension Family history of prostate cancer in father GERD (gastroesophageal reflux disease) Hx of gallstones s/p cholecystectomy Hyperlipidemia Internal hemorrhoids Irritable bowel syndrome Kidney dysfunction LBBB (left bundle branch block) incomplete. Negative echo in 2018. Lumbar spinal stenosis 07/27/2024 OA (osteoarthritis) of knee Obesity (BMI 30.0-34.9) Vitamin D deficiency ALLERGIES Biaxin [Clarithromycin], Depakote [Divalproex Sodium], Ibuprofen, Latex, Prozac [Fluoxetine Hcl], Spectazole [Econazole Nitrate], and Wellbutrin [Bupropion Hcl] MEDICATIONS Current Outpatient Medications Medication Sig atorvastatin (LIPITOR) 80 mg tablet Take 1 tablet by mouth once daily. fenofibrate nanocrystallized (TRICOR) 48 mg tablet Take 1 tablet by mouth once daily. omeprazole (PRILOSEC) 20 mg capsule Take 1 capsule by mouth daily before breakfast. 1/2 hr before meal. gabapentin (NEURONTIN) 300 mg capsule Take 1 capsule by mouth daily at bedtime for 90 days. cholecalciferol, Vitamin D3, (VITAMIN D3) 1,250 mcg (50,000 unit) cap capsule Take 1 capsule by mouth one time a week. docusate sodium (COLACE) 100 mg capsule Take 100 mg by mouth twice daily. OLANZapine (ZYPREXA) 10 mg tablet Take 2 tablets by mouth daily at bedtime. lamoTRIgine (LAMICTAL) 200 mg tablet Take 300 mg by mouth once daily. clonazePAM (KLONOPIN) 1 mg tablet Take 1 mg by mouth at bedtime as needed. zolpidem (AMBIEN) 10 mg tab Take by mouth at bedtime as needed. venlafaxine XR (EFFEXOR XR) 150 mg tr24 Take by mouth once daily. DULoxetine (CYMBALTA) 60 mg capsule Take 60 mg by mouth twice daily. FERROUS SULFATE (HIGH POTENCY IRON ORAL) Take 1 tablet by mouth once daily. cyanocobalamin (VITAMIN B-12) 500 mcg tablet Take 2 tablets by mouth once daily. CARBATROL 300 MG 12 HR CAP Take two capsules two(2) times daily. No current facility-administered medications for this visit. Facility-Administered Medications Ordered in Other Visits Medication Dose Route Frequency propofol injection (DIPRIVAN) INTRAVENOUS PRN Medications and allergies reviewed by this provider. SOCIAL HISTORY Social History Tobacco Use Smoking status: Never Smokeless tobacco: Never Substance Use Topics Alcohol use: No Drug use: No REVIEW OF SYSTEMS All other reviewed and negative other than HPI. OBJECTIVE: BP 124/78 Pulse 73 Resp 18 Wt 108.3 kg (238 lb 12.8 oz) SpO2 98% BMI 33.31 kg/m? . Vital signs reviewed by this provider. APPEARANCE Well appearing, alert, in no acute distress, well-hydrated, well nourished. LEFT FOOT: circular small divot area with dry skin in center plantar surface. No surrounding erythema, swelling, or drainage from area. Mild TTP Depression Screening Never done Anxiety Screening Never done BP Controlled (<130/80) due on 04/02/2024 Colorectal Cancer Screening due on 06/15/2024 Prostate Cancer Screening Discussion due on 07/05/2024 Hemoglobin/Hematocrit due on 03/03/2025 Serum Creatinine due on 05/19/2025 Annual PCP Team Chronic Disease Visit due on 07/27/2025 Diabetes Screening due on 05/19/2027 DTaP,Tdap,Td Vaccine(2 - Td or Tdap) due on 01/18/2028 Lipid Screening due on 03/03/2029 RSV Vaccine(1 - 1-dose 75+ series) due on 2038 Influenza Vaccine Completed Hepatitis C Screening Completed HIV Screening Completed Shingrix Vaccine Completed Covid-19 Vaccine Completed Pneumococcal Vaccine: 50+ Completed ASSESSMENT/PLAN: 1. Foot pain, left - ICD9: 729.5, ICD10: M79.672 - possible foreign body however I cannot visualize anything - no red flag symptoms or exam findings - red flag symptoms discussed, verbalizes understanding - recommend soaking in warm water and may apply neosporin cream to area Advised not to dig into skin are but may remove splinter if he is able to visualize it after soaking - XR FOOT GENERAL 3V AP/LAT/OBL LEFT - CONSULT TO PODIATRY to ER with red flag symptoms Rose Marie Podlogar, SALES SOLUTIONS REPRESENTATIVE.TRANSPLANT COORDINATOR Prescription instructions reviewed with patient as applicable. Patient advised (more content not included)...[facility]2025 History of Present illness Narrative* Rose Marie Johns APRN.CNP - 09/28/2024 9:27 AM EDT 09/28/2024 Patient presents with: Foreign Body: To left heel, noticed last night. SUBJECTIVE: This is a 59 year old that is here today for Above Complaints.. Last night had some pain to left heel and thinks maybe he has something under the skin. Denies fevers, chills, redness, excessive warmth, open skin area or drainage from area. Does not remember any trauma to area. Walks inside barefoot. PAST MEDICAL HISTORY Diagnosis Date Allergy to environmental factors Dr. Fernandes Anemia Bipolar 1 disorder (HCC) Dr. Stahl Cerebral hemorrhage ([facility]) Dr. Joya, Dr. Villavicencio Chronic kidney disease (CKD), stage III (moderate) ([facility]) Dr. Arthur Cognitive decline DDD (degenerative disc disease), lumbar Essential hypertension Family history of prostate cancer in father GERD (gastroesophageal reflux disease) Hx of gallstones s/p cholecystectomy Hyperlipidemia Internal hemorrhoids Irritable bowel syndrome Kidney dysfunction LBBB (left bundle branch block) incomplete. Negative echo in 2018. Lumbar spinal stenosis 07/27/2024 OA (osteoarthritis) of knee Obesity (BMI 30.0-34.9) Vitamin D deficiency ALLERGIES Biaxin [Clarithromycin], Depakote [Divalproex Sodium], Ibuprofen, Latex, Prozac [Fluoxetine Hcl], Spectazole [Econazole Nitrate], and Wellbutrin [Bupropion Hcl] MEDICATIONS Current Outpatient Medications Medication Sig atorvastatin (LIPITOR) 80 mg tablet Take 1 tablet by mouth once daily. fenofibrate nanocrystallized (TRICOR) 48 mg tablet Take 1 tablet by mouth once daily. omeprazole (PRILOSEC) 20 mg capsule Take 1 capsule by mouth daily before breakfast. 1/2 hr before meal. gabapentin (NEURONTIN) 300 mg capsule Take 1 capsule by mouth daily at bedtime for 90 days. cholecalciferol, Vitamin D3, (VITAMIN D3) 1,250 mcg (50,000 unit) cap capsule Take 1 capsule by mouth one time a week. docusate sodium (COLACE) 100 mg capsule Take 100 mg by mouth twice daily. OLANZapine (ZYPREXA) 10 mg tablet Take 2 tablets by mouth daily at bedtime. lamoTRIgine (LAMICTAL) 200 mg tablet Take 300 mg by mouth once daily. clonazePAM (KLONOPIN) 1 mg tablet Take 1 mg by mouth at bedtime as needed. zolpidem (AMBIEN) 10 mg tab Take by mouth at bedtime as needed. venlafaxine XR (EFFEXOR XR) 150 mg tr24 Take by mouth once daily. DULoxetine (CYMBALTA) 60 mg capsule Take 60 mg by mouth twice daily. FERROUS SULFATE (HIGH POTENCY IRON ORAL) Take 1 tablet by mouth once daily. cyanocobalamin (VITAMIN B-12) 500 mcg tablet Take 2 tablets by mouth once daily. CARBATROL 300 MG 12 HR CAP Take two capsules two(2) times daily. No current facility-administered medications for this visit. Facility-Administered Medications Ordered in Other Visits Medication Dose Route Frequency propofol injection (DIPRIVAN) INTRAVENOUS PRN Medications and allergies reviewed by this provider. SOCIAL HISTORY Social History Tobacco Use Smoking status: Never Smokeless tobacco: Never Substance Use Topics Alcohol use: No Drug use: No REVIEW OF SYSTEMS All other reviewed and negative other than HPI. OBJECTIVE: BP 124/78 Pulse 73 Resp 18 Wt 108.3 kg (238 lb 12.8 oz) SpO2 98% BMI 33.31 kg/m . Vital signs reviewed by this provider. APPEARANCE Well appearing, alert, in no acute distress, well-hydrated, well nourished. LEFT FOOT: circular small divot area with dry skin in center plantar surface. No surrounding erythema, swelling, or drainage from area. Mild TTP Depression Screening Never done Anxiety Screening Never done BP Controlled (<130/80) due on 04/02/2024 Colorectal Cancer Screening due on 06/15/2024 Prostate Cancer Screening Discussion due on 07/05/2024 Hemoglobin/Hematocrit due on 03/03/2025 Serum Creatinine due on 05/19/2025 Annual PCP Team Chronic Disease Visit due on 07/27/2025 Diabetes Screening due on 05/19/2027 DTaP,Tdap,Td Vaccine(2 - Td or Tdap) due on 01/18/2028 Lipid Screening due on 03/03/2029 RSV Vaccine(1 - 1-dose 75+ series) due on 2038 Influenza Vaccine Completed Hepatitis C Screening Completed HIV Screening Completed Shingrix Vaccine Completed Covid-19 Vaccine Completed Pneumococcal Vaccine: 50+ Completed ASSESSMENT/PLAN: 1. Foot pain, left - ICD9: 729.5, ICD10: M79.672 - possible foreign body however I cannot visualize anything - no red flag symptoms or exam findings - red flag symptoms discussed, verbalizes understanding - recommend soaking in warm water and may apply neosporin cream to area Advised not to dig into skin are but may remove splinter if he is able to visualize it after soaking - XR FOOT GENERAL 3V AP/LAT/OBL LEFT - CONSULT TO PODIATRY to ER with red flag symptoms Rose Marie Podlogar, SALES SOLUTIONS REPRESENTATIVE.TRANSPLANT COORDINATOR Prescription instructions reviewed with patient as applicable. Patient advised if symptoms do not improve or if symptoms worsen sooner, to contact their primary care physician. Potential red flag symptoms discussed with the patient. Reviewed appropriate action plan to take if red flag symptoms occur. Patient agreeable to treatment plan. Medical Decision Making: Problems: Low: Acute, uncomplicated illness or injury Data: Unique test(s) ordered: 1 Risk: Low: Low risk from testing/treatment Medical Decision Making Level: 3 - Low documented in this encounterK[facility] History of Present illness Narrative* Lou Hood, PT - 09/09/2024 11:10 AM EDT Program_ID:[id number] Access Code: [email or web address] URL: [email or web address] Date: 09-09-2024 Prepared By: Lou Hood Program Notes Exercises - Seated Lumbar Flexion Stretch - 1 x daily - 7 x weekly - 4 sets - 10 reps - Seated Transversus Abdominis Bracing with PLB - 1 x daily - 7 x weekly - 4 sets - 10 reps - Seated Sciatic Tensioner - 1 x daily - 7 x weekly - 2 sets - 10 reps * Lou Hood, PT - 09/09/2024 10:41 AM EDT Images from the original note were not included. Episode Visit Count: 5 Therapist That Will Accept/Oversee The Plan Of Care: Lou Hood Start of Care Date: 08/04/24 Onset Date: (for years) Plan of Care Certification Date: 08/04/24 Next Certification Due Date: 09/15/24 REHABILITATION AND SPORTS THERAPY PHYSICAL THERAPY DISCONTINUANCE OF CARE PLAN OF CARE UPDATE: Assessment: Jimi Soto is discontinued from Physical Therapy services due to Patient/Client declining further intervention.. Patient was seen for 5 visits from Start of Care Date: 08/04/24 to 09/09/2024 and treatment included: Therapeutic exercise, Neuromuscular re-education, Manual therapy, and Self-retirement management. Goals for Episode of Care: established 08/04/24 Goals updated on 09/09/2024. Independent in home exercises. -- MET Patient will decrease pain to 1-2/10 at rest to allow patient to improve standing tolerance for ADLs. -- MET Restore pain-free lumbar ROM to minimal to moderate limitation extension to allow for prolonged standing and postural correction. -- PARTIALLY MET Sit 1-2 hours without pain/symptoms to allow for seated activities. -- MET Patient will be able to tolerate walking for community distances without increased symptoms. -- MET 14 sit <> stand reps in 30 seconds to demonstrate improved functional strength to WNL for pt. Age group. -- MET Patient Goals: reduce LBP -- MET SUBJECTIVE: Pt. mentions some concerns that pt. will be seeing psych for next week. Pt. mentions some bipolar concerns. Pt. wants to be done with PT, but mentions intermittent problems with balance that only happens when he is at home doing a lot of things.. Patient Goals: reduce LBP Functional Limitations: standing, sitting Pain: Pain Pain Level: 0 Pain Location: Back Description: Aching Frequency: Intermittent PROMIS Scales 08/12/2024 08/02/2024 07/14/2024 Higher is Better Phys Func - T Score 41 (mild dysfunction) 32 (moderate dysfunction) Phys Func - Percentile 18 4 Self-Eff Symptom - T Score 41 (Average) 36 (Low) Self-Eff Symptom - Percentile 18 8 Cognitve Function - T Score 39 (moderate dysfunction) Cognitive Function - Percentile 14 Proxy-reported 07/14/2024 04/24/2024 Lower is Better Pain Interference - T Score 64 (moderate) 56 (mild) Pain Interference - Percentile 8 27 T-scores: mean of general population = 50. 5 points is clinically meaningfully difference Percentiles provide an indication of how the patient's score ranks in relation to the general population. Higher percentile rankings indicate better function/quality of life. 50th percentile is the average of the general population and indicates half of respondents had a worse score. OBJECTIVE MEASURES WITH LEVEL OF FUNCTION: Lumbar Spine AROM Lumbar Flexion: Normal Lumbar Extension: Minimal limitation Lumbar R Side-Bend: Minimal limitation Lumbar L Side-Bend: Minimal limitation Functional Performance Test Results 30 Second Chair Stand Test: 14 reps TREATMENT: Therapeutic Exercise: 1: seated scifit stepper, seat 15, level 1, 1:1 throughout, subjective collected 5 min 2: *Access Code: [email or web address] URL: [email or web address] Date: 09/09/2024 Prepared by: Lou Zarco Exercises - Seated Lumbar Flexion Stretch - 1 x daily - 7 x weekly - 4 sets - 10 reps - Seated Transversus Abdominis Bracing with PLB - 1 x daily - 7 x weekly - 4 sets - 10 reps - Seated Sciatic Tensioner - 1 x daily - 7 x weekly - 2 sets - 10 reps 3: sit to stand 30 seconds Skilled Intervention: Patient was educated in proper exercise technique and purpose for exercises. Skilled judgment was used in selection of appropriate interventions. Provided written instruction for home exercise program to facilitate proper performance and compliance. Correct performance of therapeutic exercises was facilitated with verbal, visual, and tactile cuing. Educated patient on rationale for performing exercises in regards to decreasing fatigue , increase ease of ADL, and ROM and function . Patient education as noted. Self-Senior Living Management: 1: advised pt. to perform speech exercises and mention to physician that he is having speech difficulty again 2: at length, encouraged pt. to discuss concerns with his sister, and his multi disciplinary providers 3: advised use of a SC instead of cruising furnature 4: advised pt.to use HEP and place it in sight to remind him how to self manage his symtoms Skilled Intervention: Skilled judgment in the selection of proper modification for activity of daily living/home management based on clinical presentation, deficits, and needs. Provided written instruction for activities of daily living techniques to facilitate proper performance and compliance. Reviewed patient specific diagnosis in relation to activities of daily living/home management. Activity progression based on professional judgement. Provided written instruction for home program to facilitate proper performance and compliance. Correct performance of home program was facilitated with verbal, visual, and tactile cueing. Billing Therapeutic Exercise Treatment Minutes: 25 Self-Care/Home Management Treatment Minutes: 15 Skilled Treatment Time Minutes (timed and untimed codes): 40 Total Session Time (minutes): 40 Session Start Time : 1040 Session Stop Time : 1120 Lou Hood PT documented in this encounterK[facility]05-[facility]-2025 NoteHNO ID: [id number] Author: LOU HOOD PT Service: ? Author Type: Physical Therapist Type: Progress Notes Filed: 09/09/2024 11:23 Note Text: Episode Visit Count: 5 Therapist That Will Accept/Oversee The Plan Of Care: Lou Hood Start of Care Date: 08/04/24 Onset Date: (for years) Plan of Care Certification Date: 08/04/24 Next Certification Due Date: 09/15/24 REHABILITATION AND SPORTS THERAPY PHYSICAL THERAPY DISCONTINUANCE OF CARE PLAN OF CARE UPDATE: Assessment: Jimi Soto is discontinued from Physical Therapy services due to Patient/Client declining further intervention.. Patient was seen for 5 visits from Start of Care Date: 08/04/24 to 09/09/2024 and treatment included: Therapeutic exercise, Neuromuscular re-education, Manual therapy, and Self-retirement management. Goals for Episode of Care: established 08/04/24 Goals updated on 09/09/2024. Independent in home exercises. -- MET Patient will decrease pain to 1-2/10 at rest to allow patient to improve standing tolerance for ADLs. -- MET Restore pain-free lumbar ROM to minimal to moderate limitation extension to allow for prolonged standing and postural correction. -- PARTIALLY MET Sit 1-2 hours without pain/symptoms to allow for seated activities. -- MET Patient will be able to tolerate walking for community distances without increased symptoms. -- MET 14 sit <> stand reps in 30 seconds to demonstrate improved functional strength to WNL for pt. Age group. -- MET Patient Goals: reduce LBP -- MET SUBJECTIVE: Pt. mentions some concerns that pt. will be seeing psych for next week. Pt. mentions some bipolar concerns. Pt. wants to be done with PT, but mentions intermittent problems with balance that only happens when he is at home doing a lot of things.. Patient Goals: reduce LBP Functional Limitations: standing, sitting Pain: Pain Pain Level: 0 Pain Location: Back Description: Aching Frequency: Intermittent PROMIS Scales 08/12/2024 08/02/2024 07/14/2024 Higher is Better Phys Func - T Score 41 (mild dysfunction) 32 (moderate dysfunction) Phys Func - Percentile 18 4 Self-Eff Symptom - T Score 41 (Average) 36 (Low) Self-Eff Symptom - Percentile 18 8 Cognitve Function - T Score 39 (moderate dysfunction) Cognitive Function - Percentile 14 Proxy-reported 07/14/2024 04/24/2024 Lower is Better Pain Interference - T Score 64 (moderate) 56 (mild) Pain Interference - Percentile 8 27 T-scores: mean of general population = 50. 5 points is clinically meaningfully difference Percentiles provide an indication of how the patient's score ranks in relation to the general population. Higher percentile rankings indicate better function/quality of life. 50th percentile is the average of the general population and indicates half of respondents had a worse score. OBJECTIVE MEASURES WITH LEVEL OF FUNCTION: Lumbar Spine AROM Lumbar Flexion: Normal Lumbar Extension: Minimal limitation Lumbar R Side-Bend: Minimal limitation Lumbar L Side-Bend: Minimal limitation Functional Performance Test Results 30 Second Chair Stand Test: 14 reps TREATMENT: Therapeutic Exercise: 1: seated scifit stepper, seat 15, level 1, 1:1 throughout, subjective collected 5 min 2: *Access Code: [email or web address] URL: [email or web address] Date: 09/09/2024 Prepared by: Lou Hood Exercises - Seated Lumbar Flexion Stretch - 1 x daily - 7 x weekly - 4 sets - 10 reps - Seated Transversus Abdominis Bracing with PLB - 1 x daily - 7 x weekly - 4 sets - 10 reps - Seated Sciatic Tensioner - 1 x daily - 7 x weekly - 2 sets - 10 reps 3: sit to stand 30 seconds Skilled Intervention: Patient was educated in proper exercise technique and purpose for exercises. Skilled judgment was used in selection of appropriate interventions. Provided written instruction for home exercise program to facilitate proper performance and compliance. Correct performance of therapeutic exercises was facilitated with verbal, visual, and tactile cuing. Educated patient on rationale for performing exercises in regards to decreasing fatigue , increase ease of ADL, and ROM and function . Patient education as noted. Self-Senior Living Management: 1: advised pt. to perform speech exercises and mention to physician that he is having speech difficulty again 2: at length, encouraged pt. to discuss concerns with his sister, and his multi disciplinary providers 3: advised use of a SC instead of cruising furnature 4: advised pt.to use HEP and place it in sight to remind him how to self manage his symtoms Skilled Intervention: Skilled judgment in the selection of proper modification for activity of daily living/home management based on clinical presentation, deficits, and needs. Provided written instruction for activities of daily living techniques to facilitate proper performance and compliance. Reviewed patient specific diagnosis in relat (more content not included)... [facility]05-12-2025 Telephone encounter Note* Telephone Encounter - Crys King LPN - 09/06/2024 3:27 PM EDT Completed paperwork forwarded to number listed on the [place] form. [facility] recs for scanning. Crys King LPN [facility]05-12-2025 Miscellaneous Notes* Telephone Encounter - Crys King LPN - 09/06/2024 3:27 PM EDT Completed paperwork forwarded to number listed on the [place] form. [employer] to med recs for scanning. Crys King LPN * Telephone Encounter - Alpesh Hill MD - 08/23/2024 2:57 PM EDT I dont have any forms documented in this encounterK[facility] NoteHNO ID: [id number] Author: LOU HOOD, PT Service: ? Author Type: Physical Therapist Type: Progress Notes Filed: 09/02/2024 11:19 Note Text: Episode Visit Count: 4 Therapist That Will Accept/Oversee The Plan Of Care: Lou Hood Start of Care Date: 08/04/24 Onset Date: (for years) Plan of Care Certification Date: 08/04/24 Next Certification Due Date: 09/15/24 REHABILITATION AND SPORTS THERAPY PHYSICAL THERAPY TREATMENT NOTE ASSESSMENT: Jimi Soto tolerated the session with fatigue. He demonstrated difficulty with BOSU ball step ups, but this was better with UE support. Requires cues to not look down directly at his feet which pt. Is able to do with UE support x 1. The patient will continue to benefit from ongoing skilled physical therapy to progress toward set goals. PLAN FOR NEXT VISIT: SUBJECTIVE: Pt. is taking medication for his legs. He did have a day he had to stay home due to leg pain. Denies pain currently. HEP Is helping Patient Goals: reduce LBP Pain: Pain Pain Location: Back OBJECTIVE MEASURES WITH LEVEL OF FUNCTION: TREATMENT: Therapeutic Exercise: 1: seated scifit stepper, seat 15, level 1, 1:1 throughout, subjective collected 5 min 2: hook lying TA activation 2x10 Skilled Intervention: Patient was educated in proper exercise technique and purpose for exercises. Skilled judgment was used in selection of appropriate interventions. Correct performance of therapeutic exercises was facilitated with verbal, visual, and tactile cuing. Educated patient on rationale for performing exercises in regards to decreasing fatigue , increase ease of ADL, and ROM and function . Patient education as noted. Manual Therapy: Manual Traction: hook lying, LE's elevated 90 hip flexion, 90 knee flexion x 15 min caudal pull to tolerance Skilled Intervention: Manual skills to improve joint mobility, ROM, and decrease pain. Utilized anatomy knowledge of the clinician, and assessment of patient's response to intervention. Neuromuscular Re-Education: 1: BOSU ball step ups 2x20 each side - attempted 10x reps each side without UE support, but pt. requires at least x1 UE support 2: BOSU ball step ups lateral x2 UE support 20x (10x each side) Skilled Intervention: Skilled judgment used to assess appropriate program for balance and coordination activity. Education in proprioceptive/kinesthetic awareness during dynamic activities. Ensured patient safety with use of gait belt and // bars. Billing Therapeutic Exercise Treatment Minutes: 8 Manual TherapyTreatment Minutes: 15 Neuromuscular Re-Education Treatment Minutes: 17 Skilled Treatment Time Minutes (timed and untimed codes): 40 Total Session Time (minutes): 40 Session Start Time : 1039 Session Stop Time : 1119 Lou Hood, [facility]05-08-2025 History of Present illness Narrative* Lou Hood, PT - 09/02/2024 10:40 AM EDT Episode Visit Count: 4 Therapist That Will Accept/Oversee The Plan Of Care: Lou Hood Start of Care Date: 08/04/24 Onset Date: (for years) Plan of Care Certification Date: 08/04/24 Next Certification Due Date: 09/15/24 REHABILITATION AND SPORTS THERAPY PHYSICAL THERAPY TREATMENT NOTE ASSESSMENT: Jimi Soto tolerated the session with fatigue. He demonstrated difficulty with BOSU ball step ups, but this was better with UE support. Requires cues to not look down directly at his feet which pt. Is able to do with UE support x 1. The patient will continue to benefit from ongoing skilled physical therapy to progress toward set goals. PLAN FOR NEXT VISIT: SUBJECTIVE: Pt. is taking medication for his legs. He did have a day he had to stay home due to legpain. Denies pain currently. HEP Is helping Patient Goals: reduce LBP Pain: Pain Pain Location: Back OBJECTIVE MEASURES WITH LEVEL OF FUNCTION: TREATMENT: Therapeutic Exercise: 1: seated scifit stepper, seat 15, level 1, 1:1 throughout, subjective collected 5 min 2: hook lying TA activation 2x10 Skilled Intervention: Patient was educated in proper exercise technique and purpose for exercises. Skilled judgment was used in selection of appropriate interventions. Correct performance of therapeutic exercises was facilitated with verbal, visual, and tactile cuing. Educated patient on rationale for performing exercises in regards to decreasing fatigue , increase ease of ADL, and ROM and function . Patient education as noted. Manual Therapy: Manual Traction: hook lying, LE's elevated 90 hip flexion, 90 knee flexion x 15 min caudal pull to tolerance Skilled Intervention: Manual skills to improve joint mobility, ROM, and decrease pain. Utilized anatomy knowledge of the clinician, and assessment of patient's response to intervention. Neuromuscular Re-Education: 1: BOSU ball step ups 2x20 each side - attempted 10x reps each side without UE support, but pt. requires at least x1 UE support 2: BOSU ball step ups lateral x2 UE support 20x (10x each side) Skilled Intervention: Skilled judgment used to assess appropriate program for balance and coordination activity. Education in proprioceptive/kinesthetic awareness during dynamic activities. Ensured patient safety with use of gait belt and // bars. Billing Therapeutic Exercise Treatment Minutes: 8 Manual TherapyTreatment Minutes: 15 Neuromuscular Re-Education Treatment Minutes: 17 Skilled Treatment Time Minutes (timed and untimed codes): 40 Total Session Time (minutes): 40 Session Start Time : 1039 Session Stop Time : 1119 Lou Hood PT [facility]04[facility] Telephone encounter Note * Telephone Encounter - Alpesh Hill MD - 08/23/2024 2:57 PM EDT I dont have any forms [facility]04-24-2025 NoteHNO ID: [id number] Author: LOU HOOD PT Service: ? Author Type: Physical Therapist Type: Progress Notes Filed: 08/19/2024 11:34 Note Text: Episode Visit Count: 3 Therapist That Will Accept/Oversee The Plan Of Care: Lou Hood Start of Care Date: 08/04/24 Onset Date: (for years) Plan of Care Certification Date: 08/04/24 Next Certification Due Date: 09/15/24 REHABILITATION AND SPORTS THERAPY PHYSICAL THERAPY TREATMENT NOTE ASSESSMENT: Jimi Soto tolerated the session with fatigue. He demonstrated improvements in no symptoms in the LE or LB produced with TA stabilization strengthening using hoist machine. The patient will continue to benefit from ongoing skilled physical therapy to progress toward set goals. PLAN FOR NEXT VISIT: continue manual traction, consider balance, BOSU ball step ups SUBJECTIVE: LBP is a lot better. Patient Goals: reduce LBP Pain: Pain Pain Level: 0 Pain Location: Back Description: Aching Frequency: Intermittent Post Treatment Pain Post Treatment Pain Level: 0 Post Treatment Pain Location: Back OBJECTIVE MEASURES WITH LEVEL OF FUNCTION: TREATMENT: Therapeutic Exercise: 1: seated scifit stepper, seat 15, level 1, 1:1 throughout, subjective collected 5 min 2: paloff press R blue band 1x10 -- dc due to difficulty with technique 3: blue band TA B shoulder ext 1x12 4: hoist machine TA pull down 1x12 plate 3, 1x12 plate 2 Skilled Intervention: Patient was educated in proper exercise technique and purpose for exercises. Skilled judgment was used in selection of appropriate interventions. Correct performance of therapeutic exercises was facilitated with verbal, visual, and tactile cuing. Educated patient on rationale for performing exercises in regards to decreasing fatigue , increase ease of ADL, and ROM and function. Patient education as noted. Manual Therapy: Manual Traction: hook lying, LE's elevated 90 hip flexion, 90 knee flexion x 15 min caudal pull to tolerance Skilled Intervention: Manual skills to improve joint mobility, ROM, and decrease pain. Utilized anatomy knowledge of the clinician, and assessment of patient's response to intervention. Billing Therapeutic Exercise Treatment Minutes: 24 Manual TherapyTreatment Minutes: 15 Skilled Treatment Time Minutes (timed and untimed codes): 39 Total Session Time (minutes): 39 Session Start Time : 1053 Session Stop Time : 1132 Lou Hood [facility]04-17-2025 History of Present illness Narrative* Lou Hood, PT - 08/12/2024 11:14 AM EDT Program_ID:[id number] Access Code: [email or web address] URL: [email or web address] Date: 08-12-2024 Prepared By: Lou Hood Program Notes Exercises - Seated Lumbar Flexion Stretch - 1 x daily - 7 x weekly - 4 sets - 10 reps - Seated Transversus Abdominis Bracing with PLB - 1 x daily - 7 x weekly - 4 sets - 10 reps - Seated Sciatic Tensioner - 1 x daily - 7 x weekly - 2 sets - 10 reps * Lou Hood, PT - 08/12/2024 10:58 AM EDT Episode Visit Count: 2 Therapist That Will Accept/Oversee The Plan Of Care: Lou Hood Start of Care Date: 08/04/24 Onset Date: (for years) Plan of Care Certification Date: 08/04/24 Next Certification Due Date: 09/15/24 REHABILITATION AND SPORTS THERAPY PHYSICAL THERAPY TREATMENT NOTE ASSESSMENT: Jimi Soto tolerated the session with decreased symptoms. He demonstrated difficulty with correct technique with TA activation in the seated position but this improved with pushing down onto a 55 cm physioball. The patient will continue to benefit from ongoing skilled physical therapy to progress toward set goals. PLAN FOR NEXT VISIT: assess symptom response to lumbar traction SUBJECTIVE: Pt. had a great increase in pain once he stepped outside. Denies pain right now. Exercises are effective. Standing continues to be the aggravating factor. Denies BLE numbness currently, but did have it yesterday when doing his laundry. Pain: Pain Pain Level: 0 Pain Location: Back Description: Aching Frequency: Intermittent Post Treatment Pain Post Treatment Pain Level: 0 Post Treatment Pain Location: Back OBJECTIVE MEASURES WITH LEVEL OF FUNCTION: TREATMENT: Therapeutic Exercise: 1: seated lumbar flexion repeated 4x10 2: seated TA activation with BUE pushing down on 55 cm physioball 3x15 3: seated R sciatic nerve glide 4x10 (produces concordant radiating symptoms) 4: seated TA activation PPT 4x10 Skilled Intervention: Patient was educated in proper exercise technique and purpose for exercises. Skilled judgment was used in selection of appropriate interventions. Provided written instruction for home exercise program to facilitate proper performance and compliance. Correct performance of therapeutic exercises was facilitated with verbal, visual, and tactile cuing. Educated patient on rationale for performing exercises in regards to decreasing fatigue , increase ease of ADL, and ROM and function . Patient education as noted. Manual Therapy: Manual Traction: hook lying, LE's elevated 90 hip flexion, 90 knee flexion x 15 min caudal pull to tolerance -- pt. reports complete relief throughout Skilled Intervention: Manual skills to improve joint mobility, ROM, and decrease pain. Utilized anatomy knowledge of the therapist, and assessment of patient's response to intervention. Billing Therapeutic Exercise Treatment Minutes: 31 Manual TherapyTreatment Minutes: 15 Skilled Treatment Time Minutes (timed and untimed codes): 46 Total Session Time (minutes): 46 Session Start Time : 1055 Session Stop Time : 1141 Lou Hood PT documented in this encounterK[facility]04-17-2025 NoteHNO ID: [id number] Author: LOU HOOD PT Service: ? Author Type: Physical Therapist Type: Progress Notes Filed: 08/12/2024 11:41 Note Text: Episode Visit Count: 2 Therapist That Will Accept/Oversee The Plan Of Care: Lou Hood Start of Care Date: 08/04/24 Onset Date: (for years) Plan of Care Certification Date: 08/04/24 Next Certification Due Date: 09/15/24 REHABILITATION AND SPORTS THERAPY PHYSICAL THERAPY TREATMENT NOTE ASSESSMENT: Jimi Soto tolerated the session with decreased symptoms. He demonstrated difficulty with correct technique with TA activation in the seated position but this improved with pushing down onto a 55 cm physioball. The patient will continue to benefit from ongoing skilled physical therapy to progress toward set goals. PLAN FOR NEXT VISIT: assess symptom response to lumbar traction SUBJECTIVE: Pt. had a great increase in pain once he stepped outside. Denies pain right now. Exercises are effective. Standing continues to be the aggravating factor. Denies BLE numbness currently, but did have it yesterday when doing his laundry. Pain: Pain Pain Level: 0 Pain Location: Back Description: Aching Frequency: Intermittent Post Treatment Pain Post Treatment Pain Level: 0 Post Treatment Pain Location: Back OBJECTIVE MEASURES WITH LEVEL OF FUNCTION: TREATMENT: Therapeutic Exercise: 1: seated lumbar flexion repeated 4x10 2: seated TA activation with BUE pushing down on 55 cm physioball 3x15 3: seated R sciatic nerve glide 4x10 (produces concordant radiating symptoms) 4: seated TA activation PPT 4x10 Skilled Intervention: Patient was educated in proper exercise technique and purpose for exercises. Skilled judgment was used in selection of appropriate interventions. Provided written instruction for home exercise program to facilitate proper performance and compliance. Correct performance of therapeutic exercises was facilitated with verbal, visual, and tactile cuing. Educated patient on rationale for performing exercises in regards to decreasing fatigue , increase ease of ADL, and ROM and function . Patient education as noted. Manual Therapy: Manual Traction: hook lying, LE's elevated 90 hip flexion, 90 knee flexion x 15 min caudal pull to tolerance -- pt. reports complete relief throughout Skilled Intervention: Manual skills to improve joint mobility, ROM, and decrease pain. Utilized anatomy knowledge of the therapist, and assessment of patient's response to intervention. Billing Therapeutic Exercise Treatment Minutes: 31 Manual TherapyTreatment Minutes: 15 Skilled Treatment Time Minutes (timed and untimed codes): 46 Total Session Time (minutes): 46 Session Start Time : 1055 Session Stop Time : 1141 Lou Hood, [facility]04-09-2025 History of Present illness Narrative* Lou Hood, PT - 08/04/2024 4:11 PM EDT Program_ID:[id number] Access Code: [email or web address] URL: [email or web address] Date: 08-04-2024 Prepared By: Lou Hood Program Notes Exercises - Seated Lumbar Flexion Stretch - 1 x daily - 7 x weekly - 4 sets - 10 reps - Seated Transversus Abdominis Bracing with PLB - 1 x daily - 7 x weekly - 4 sets - 10 reps - Seated Sciatic Tensioner - 1 x daily - 7 x weekly - 2 sets - 10 reps * Lou Hood, PT - 08/04/2024 3:43 PM EDT Images from the original note were not included. Episode Visit Count: 1 Therapist That Will Accept/Oversee The Plan Of Care: Lou Hood Start of Care Date: 08/04/24 Onset Date: (for years) Plan of Care Certification Date: 08/04/24 Next Certification Due Date: 09/15/24 Patient Identified by Name and Date of : Yes REHABILITATION AND SPORTS THERAPY PHYSICAL THERAPY EVALUATION PLAN OF CARE: Assessment: Jimi Soto presents with diagnosis of spinal stenosis of lumbar region and pain in both LE's that interferes with standing, sitting . The patient presents with impairments in ADL's, gait, independence in exercise, joint mobility, overall function, patient reported outcome measures, posture, range of motion, strength, and symptom management. PROMIS (Patient-Reported Outcomes Measurement Information System) scores were reviewed and identified as a rehabilitation concern. Prognosis for therapy is Fair due to: poor historian, clinical presentation, chronic nature of impairments . Thepatient will benefit from skilled therapy services to meet the goals established for this plan of ca re as noted below. Classification Pain Mechanism Classification: Nociceptive Goals for Episode of Care: established 08/04/24 Independent in home exercises. Patient will decrease pain to 1-2/10 at rest to allow patient to improve standing tolerance for ADLs. Restore pain-free lumbar ROM to minimal to moderate limitation extension to allow for prolonged standing and postural correction. Sit 1-2 hours without pain/symptoms to allow for seated activities. Patient will be able to tolerate walking for community distances without increased symptoms. 14 sit <> stand reps in 30 seconds to demonstrate improved functional strength to WNL for pt.Age group. Patient Goals: reduce LBP Time Frame for Goals and Treatment : 09/15/24 Planned Interventions, Frequency, and Duration: Current Frequency: 1x/week Duration: 6 weeks Total Number of Visits Planned: 6 Planned Treatment Interventions: Self-retirement management (12472), Gait Training (27813), Therapeutic activities (21939), Manual therapy (67868), Therapeutic exercise (51080), Neuromuscular re-education (35182) PLAN FOR NEXT VISIT: postural TA stabilization strengthening in seated positions transitioning to standing. Assess symptom response to repeated lumbar flexion for self management of LBP, numbness BLEmay not change Patient demonstrates fair understanding of plan of care and treatment. The above goals and plan of care were discussed and agreed upon by patient/family. SUBJECTIVE: for chronic LBP. Pt. recently had PT for balance and gait. Pt . reports that this recent episode ofPT did not address his LBP and that is why he presents for PT eval today. Limited historian. 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 Pt. presents without AD. He gets lightheadedness,dizziness, and weakness. Owns an AD and uses as needed. Patient Goals: reduce LBP Functional Limitations: standing, sitting Prior Level of Function: Independent without limitations Relevant History Past Relevant Medical Conditions: (recent cerebral hemorrhage) Intake Information: Prescription present Falls Interview: Two or more falls in the last year Falls Intervention: Instructed patient on safety and use of assistive device and awareness in regards to falls prevention. Red Flags Vertebral Fracture Clinical Reasoning: No identified risk factors Abdominal Aortic Aneurysm Red Flags: Age >60 Abdominal Aortic Aneurysm Clinical Reasoning: No identified risk factors. Cancer Red Flags: Age >50 or <20 Cancer Clinical Reasoning: Proceed with caution Infection Clinical Reasoning: No identified risk factors. Cauda Equina Syndrome Clinical Reasoning: No identified risk factors. Red Flags - Cervical Cancer Red Flags: Age >50 or <20 Cancer Clinical Reasoning: Proceed with caution Infection Clinical Reasoning: No identified risk factors. Spine History Pain is Worse Always: Prolonged positions Pain is Better Always: On the Move Pain: Pain Pain Level: 5 Pain Location: Back Description: Aching Frequency: Intermittent Post Treatment Pain Post Treatment Pain Location: Back PROMIS Scales 08/02/2024 07/14/2024 06/22/2024 Higher is Better Phys Func - T Score 32 (moderate dysfunction) Phys Func - Percentile 4 Self-Eff Symptom - T Score 36 (Low) Self-Eff Symptom - Percentile 8 Cognitve Function - T Score 39 (moderate dysfunction) Cognitive Function - Percentile 14 Communication - Score 50 Proxy-reported 07/14/2024 04/24/2024 Lower is Better Pain Interference - T Score 64 (moderate) 56 (mild) Pain Interference - Percentile 8 27 T-scores: mean of general population = 50. 5 points is clinically meaningfully difference Percentiles provide an indication of how the patient's score ranks in relation to the general population. Higher percentile rankings indicate better function/quality of life. 50th percentile is the average of the general population and indicates half of respondents had a worse score. OBJECTIVE MEASURES WITH LEVEL OF FUNCTION: Posture / Alignment Sitting Posture: Slump Effects of Posture Correction: improves symptoms Sensation - Lumbar Sensation: Grossly Intact Lumbar Spine AROM Lumbar Flexion: Normal Lumbar Extension: Major limitation, Produces Lumbar R Side-Bend: Major limitation, Produces Lumbar L Side-Bend: Major limitation, Produces Repeated Test Movements - Lumbar Other Lumbar Repeated Test Movements: Yes Other Repeated Test Movements - Lumbar RFISit / Symptoms During: no effect RFISit / Symptoms After: no effect Gait Gait: Independent Gait Distance (feet): 50 Gait Device: None Gait Observation: trunk flexed, some trunk sway Functional Performance Test Results 30 Second Chair Stand Test: 12 reps Education: Education Learning Preferences: Demonstration, Explanation, Performance, Printed Materials Barriers: Cognitive Limitations Learning/educational needs: Plan of Care, Home exercise program, Gait Training, Safety Education Provided: Yes, see treatment interventions for education provided Education Provided To: Patient Education Mode/Type: Demonstration, Explanation/Discussion, Literature/Printed Materials, Performance Response to Education/Teach Back: States/Identifies, Return Demonstration TREATMENT: PT Treatment Interventions: Therapeutic Exercise, Self-Senior Living Management Evaluation Therapeutic Exercise: 1: *Access Code: [email or web address] URL: [email or web address] Date: 08/04/2024 Prepared by: Lou Zarco Exercises - Seated Lumbar Flexion Stretch - 1 x daily - 7 x weekly - 4 sets - 10 reps - Seated Transversus Abdominis Bracing with PLB - 1 x daily - 7 x weekly - 4 sets - 10 reps - Seated Sciatic Tensioner - 1 x daily - 7 x weekly - 2 sets - 10 reps Skilled Intervention: Patient was educated in proper exercise technique and purpose for exercises. Skilled judgment was used in selection of appropriate interventions. Provided written instruction for home exercise program to facilitate proper performance and compliance. Correct performance of therapeutic exercises was facilitated with verbal, visual, and tactile cuing. Educated patient on rationale for performing exercises in regards to decreasing fatigue , increase ease of ADL, and ROM and function . Patient education as noted. Self-Senior Living Management: 1: discussed directional preference 2: discussed flexion instead of extension does not cause pain- therefore repeated flexion in seatedposition to avoid falling will trial 3: discussed plan to address TA stabilization strength, encouraged active TA with prolonged positions and postural correction to reduce symptoms with prolonged positions Skilled Intervention: Skilled judgment in the selection of proper modification for activity of daily living/home management based on clinical presentation, deficits, and needs. Provided written instruction for activities of daily living techniques to facilitate proper performance and compliance. Reviewed patient specific diagnosis in relation to activities of daily living/home management. Activity progression based on professional judgement. Moderate verbal cues for maintaining neutral spine alignment. Provided written instruction for home program to facilitate proper performance and compliance. Correct performance of home program was facilitated with verbal, visual, and tactile cueing. Billing * Evaluation Low Complexity: 1 Unit Therapeutic Exercise Treatment Minutes: 14 Self-Care/Home Management Treatment Minutes: 9 Skilled Treatment Time Minutes (timed and untimed codes): 40 Total Session Time (minutes): 40 Session Start Time : 1538 Session Stop Time : 1618 Lou Hood PT [facility] NoteHNO ID: [id number] Author: LOU HOOD PT Service: ? Author Type: Physical Therapist Type: Progress Notes Filed: 08/04/2024 16:20 Note Text: Episode Visit Count: 1 Therapist That Will Accept/Oversee The Plan Of Care: Lou Hood Start of Care Date: 08/04/24 Onset Date: (for years) Plan of Care Certification Date: 08/04/24 Next Certification Due Date: 09/15/24 Patient Identified by Name and Date of : Yes REHABILITATION AND SPORTS THERAPY PHYSICAL THERAPY EVALUATION PLAN OF CARE: Assessment: Jimi Soto presents with diagnosis of spinal stenosis of lumbar region and pain in both LE's that interferes with standing, sitting . The patient presents with impairments in ADL's, gait, independence in exercise, joint mobility, overall function, patient reported outcome measures, posture, range of motion, strength, and symptom management. PROMIS? (Patient-Reported Outcomes Measurement Information System) scores were reviewed and identified as a rehabilitation concern. Prognosis for therapy is Fair due to: poor historian, clinical presentation, chronic nature of impairments . The patient will benefit from skilled therapy services to meet the goals established for this plan of care as noted below. Classification Pain Mechanism Classification: Nociceptive Goals for Episode of Care: established 08/04/24 Independent in home exercises. Patient will decrease pain to 1-2/10 at rest to allow patient to improve standing tolerance for ADLs. Restore pain-free lumbar ROM to minimal to moderate limitation extension to allow for prolonged standing and postural correction. Sit 1-2 hours without pain/symptoms to allow for seated activities. Patient will be able to tolerate walking for community distances without increased symptoms. 14 sit <> stand reps in 30 seconds to demonstrate improved functional strength to WNL for pt. Age group. Patient Goals: reduce LBP Time Frame for Goals and Treatment : 09/15/24 Planned Interventions, Frequency, and Duration: Current Frequency: 1x/week Duration: 6 weeks Total Number of Visits Planned: 6 Planned Treatment Interventions: Self-retirement management (61676), Gait Training (87112), Therapeutic activities (48195), Manual therapy (18036), Therapeutic exercise (79620), Neuromuscular re-education (65233) PLAN FOR NEXT VISIT: postural TA stabilization strengthening in seated positions transitioning to standing. Assess symptom response to repeated lumbar flexion for self management of LBP, numbness BLE may not change Patient demonstrates fair understanding of plan of care and treatment. The above goals and plan of care were discussed and agreed upon by patient/family. SUBJECTIVE: for chronic LBP. Pt. recently had PT for balance and gait. Pt . reports that this recent episode of PT did not address his LBP and that is why he presents for PT eval today. Limited historian. 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 Pt. presents without AD. He gets lightheadedness, dizziness, and weakness. Owns an AD and uses as needed. Patient Goals: reduce LBP Functional Limitations: standing, sitting Prior Level of Function: Independent without limitations Relevant History Past Relevant Medical Conditions: (recent cerebral hemorrhage) Intake Information: Prescription present Falls Interview: Two or more falls in the last year Falls Intervention: Instructed patient on safety and use of assistive device and awareness in regards to falls prevention. Red Flags Vertebral Fracture Clinical Reasoning: No identified risk factors Abdominal Aortic Aneurysm Red Flags: Age >60 Abdominal Aortic Aneurysm Clinical Reasoning: No identified risk factors. Cancer Red Flags: Age >50 or <20 Cancer Clinical Reasoning: Proceed with caution Infection Clinical Reasoning: No identified risk factors. Cauda Equina Syndrome Clinical Reasoning: No identified risk factors. Red Flags - Cervical Cancer Red Flags: Age >50 or <20 Cancer Clinical Reasoning: Proceed with caution Infection Clinical Reasoning: No identified risk factors. Spine History Pain is Worse Always: Prolonged positions Pain is Better Always: On the Move Pain: Pain Pain Level: 5 Pain Location: Back Description: Aching Frequency: Intermittent Post Treatment Pain Post Treatment Pain Location: Back PROMIS Scales 08/02/2024 07/14/2024 06/22/2024 Higher is Better Phys Func - T Score 32 (moderate dysfunction) Phys Func - Percentile 4 Self-Eff Symptom - T Score 36 (Low) Self-Eff Symptom - Percentile 8 Cognitve Function - T Score 39 (moderate dysfunction) Cognitive Function - Percentile 14 Communication - Score 50 Proxy-reported 07/14/2024 04/24/2024 Lower is Better Pain Interference - T Score 64 (moderate) 56 (mild) Pain Interference - Percentile 8 27 T-scores: mean of general population = 50. 5 points is clinically meaningfully difference Percentiles provide a (more content not included)...[facility] 08-03-2024 Instructions* Patient Instructions* Ismael Villavicencio MD - 08/03/2024 2:03 PM EDT We discussed your cerebral amyloid angiopathy and related symptoms: - Your MRI from January showed microbleeds throughout the brain, which may be related to cerebral amyloid angiopathy. This condition can sometimes affect cognition and increase the risk of bleeding but does not always correlate with symptoms. - We will repeat an MRI in six months to monitor for any changes. The imaging will be scheduled closer to January, and the facility will call you to arrange the appointment. This can be done in [place]. - I will send my notes to Dr. Joya and Dianelys to provide my input on your MRI findings. We discussed your memory issues and cognitive decline: - You are experiencing worsening short-term memory and require increasing support with daily tasks.This may be related to your cerebral amyloid angiopathy or other factors. - Continue using your city planner to help manage appointments and daily activities. Your caregiver s support is important, and moving closer to them in the future may be beneficial. 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 This may be contributing to your legpain, numbness, and tingling. - Your kidney disease (stage 3 chronic kidney disease) may be a contributing factor to your neuropathy. Please continue follow-up with your lens block gauger, whom you are scheduled to see on December 29. We discussed your balance issues and falls: - You have experienced episodes of unsteadiness, lightheadedness, and falls. These may be related to your neuropathy, medications, or other factors. - Be cautious with activities that require balance, and avoid rushing to reduce your risk of falls.Notify your caregiver or healthcare provider if these symptoms worsen. We discussed your medications: - Your psychiatrist recently reduced your Zyprexa dose to 7.5 mg. He plans to continue tapering your medications gradually due to the number of medications you are on. - You were previously overdosing on B12, which has been corrected. Your B12 levels were high but are expected to normalize. Next steps: - Continue follow-up with your neurologist, psychiatrist, and lens block gauger as scheduled. - Monitor for any new or worsening symptoms, including changes in memory, balance, or leg pain, andnotify your healthcare providers promptly. - Your MRI will be repeated in six months to assess for any changes in your brain findings. The facility will contact you to schedule this closer to the time. documented in this [facility] NoteHNO ID: [id number] Author: ISMAEL VILLAVICENCIO MD Service: ? Author Type: Physician Type: Progress Notes Filed: 08/03/2024 15:47 Note Text: [facility] Initial Visit Consultation is requested by: Kel Joya [address] [id number] PCP: Alpesh Hill [address] [place] [address] CEREBROVASCULAR HISTORY Jimi Soto is a 59 year old male who is being referred by Dr Joya for an evaluation of cerebral microbleeds. He is accompanied by his sister, Kelley, who helps with history. The patient consented to the use of ambient AI software for draft documentation of the visit consistent with [facility]?s Notice of Privacy Practices. Reason for Visit: cerebral microbleeds - Jimi is a 59-year-old male with a history of cerebral amyloid angiopathy, CKD stage 3, hyperlipidemia, and bipolar disorder, presenting for evaluation of microbleeds. Date of Last Event: (N/A) History of Event: AI scribe based text: Questionable Cerebral Amyloid Angiopathy: - Referred by Dr. Joya for evaluation of microbleeds. - Initial symptoms included blurred vision, imbalance, and headaches. - Brain MRI revealed innumerable microhemorrhages throughout the brain. - Neurology consult requested by Jimi's sister, Kelley, who is present and providing additional history. - Decline in cognitive function noted over the past 1-2 years, with worsening symptoms in the last 1.5 years. - Memory issues include forgetting appointments and details from medical visits. - Short-term memory more affected than long-term memory. - Recent MoCA performed by Dr. Joya with score of 24/30 (points lost for delayed recall, serial 7, abstraction) - Family history of Alzheimer's disease. - Denies current use of technology; relies on sister for support and reminders. - Lives alone in [place]; sister lives [place] of [place] and provides support. - Denies current use of antihypertensive medications; previously treated for HTN. - Denies history of open heart surgery. Neuropathy: - Bilateral leg pain, numbness, and tingling. - Recent episodes of leg shaking and uncontrolled movements. - EMG last month diagnosed bilateral sensory polyneuropathy. - Recent MRI of the back showed mild degenerative changes and stenosis. - Pain described as severe, lasting from a few hours to all day, affecting ability to perform errands. - Pain radiates from hips down to legs, with recent increase in left-sided pain. - Denies current or prior diabetes mellitus. Bipolar Disorder: - Long-standing history, recently established with a new psychiatrist, Dr. Martin Daniel, in [place]. - Recent decrease in Zyprexa to 7.[address] Daniel. - Previous psychiatrist attributed some symptoms to Zyprexa. - Reports unusual behaviors, including not showering and poor hygiene. - Recent depressive symptoms noted, attributed to physical and cognitive decline. - History of ECT treatment. - Family history of mental health issues, including a brother with a history of electroshock therapy. CKD Stage 3: - Managed by a lens block gauger, with next appointment scheduled for December 29. - Believes medication may have contributed to kidney dysfunction. Hyperlipidemia: - Long-standing history, previously managed with medication. - Recent discontinuation of antihypertensive medication due to low blood pressure readings. Family History: - Family history of diabetes mellitus, heart disease, and obesity. - Mother had diabetes mellitus, heart disease, and obesity. - Brother from an accidental gunshot wound, which triggered Jimi's mental health issues. Residual Deficits: Cognitive impairments Current PT/OT/ST: None Current Living Situation: Home alone Current use of a mobility aid for walking/getting around: None PAST MEDICAL HISTORY Diagnosis Date Allergy to environmental factors Dr. Fernandes Anemia Bipolar 1 disorder (HCC) Dr. Stahl Cerebral hemorrhage (HCC) Dr. Joya, Dr. Villavicencio Chronic kidney disease (CKD), stage III (moderate) (HCC) Dr. Arthur Cognitive decline DDD (degenerative disc disease), lumbar Essential hypertension Family history of prostate cancer in father GERD (gastroesophageal reflux disease) Hx of gallstones s/p cholecystectomy Hyperlipidemia Internal hemorrhoids Irritable bowel syndrome Kidney dysfunction LBBB (left bundle branch block) incomplete. Negative echo in 2018. Lumbar spinal stenosis 07/27/2024 OA (osteoarthritis) of knee Obesity (BMI 30.0-34.9) Vitamin D deficiency PAST SURGICAL HISTORY Procedure Laterality Date APPENDECTOMY remotely COLONOSCOPY FLX DX W/COLLJ SPEC WHEN PFRMD 06/15/2014 Colonoscopy COLONOSCOPY SCREENING Bilateral 08/22/2022 ESOPHAGOGASTRODUODENOSCOPY TRANSORAL DIAGNOSTIC 06/15/2014 EGD INCISION AND DRAINAGE ABSCESS SIMPLE/SINGLE both sides of face. KNEE MOMIN (more content not included)...[facility]04-08-2025 History of Present illness Narrative* Ismael Villavicencio MD - 08/03/2024 1:18 PM EDT Images from the original note were not included. [facility]BROVASCULAR CENTER Initial Visit Consultation is requested by: Kel Joya [address] [id number] PCP: Alpesh Hill [address] [id number] CEREBROVASCULAR HISTORY Jimi Soto is a 59 year old male who is being referred by Dr Joya for an evaluation of cerebral microbleeds. He is accompanied by his sister, Kelley, who helps with history. The patient consented to the use of ambient [employer] software for draft documentation of the visit consistent with [facility] s Notice of Privacy Practices. Reason for Visit: cerebral microbleeds - Jimi is a 59-year-old male with a history of cerebral amyloid angiopathy, CKD stage 3, hyperlipidemia, and bipolar disorder, presenting for evaluation of microbleeds. Date of Last Event: (N/A) History of Event: AI scribe based text: Questionable Cerebral Amyloid Angiopathy: - Referred by Dr. Joya for evaluation of microbleeds. - Initial symptoms included blurred vision, imbalance, and headaches. - Brain MRI revealed innumerable microhemorrhages throughout the brain. - Neurology consult requested by Jimi's sister, Kelley, who is present and providing additional history. - Decline in cognitive function noted over the past 1-2 years, with worsening symptoms in the last 1.5 years. - Memory issues include forgetting appointments and details from medical visits. - Short-term memory more affected than long-term memory. - Recent MoCA performed by Dr. Joya with score of 24/30 (points lost for delayed recall, serial 7,abstraction) - Family history of Alzheimer's disease. - Denies current use of technology; relies on sister for support and reminders. - Lives alone in [place]; sister lives south of [place] and provides support. - Denies current use of antihypertensive medications; previously treated for HTN. - Denies history of open heart surgery. Neuropathy: - Bilateral leg pain, numbness, and tingling. - Recent episodes of leg shaking and uncontrolled movements. - EMG last month diagnosed bilateral sensory polyneuropathy. - Recent MRI of the back showed mild degenerative changes and stenosis. - Pain described as severe, lasting from a few hours to all day, affecting ability to perform errands. - Pain radiates from hips down to legs, with recent increase in left-sided pain. - Denies current or prior diabetes mellitus. Bipolar Disorder: - Long-standing history, recently established with a new psychiatrist, Dr. Martin Daniel, in [place]. - Recent decrease in Zyprexa to [address] Daniel. - Previous psychiatrist attributed some symptoms to Zyprexa. - Reports unusual behaviors, including not showering and poor hygiene. - Recent depressive symptoms noted, attributed to physical and cognitive decline. - History of ECT treatment. - Family history of mental health issues, including a brother with a history of electroshock therapy. CKD Stage 3: - Managed by a lens block gauger, with next appointment scheduled for December 29. - Believes medication may have contributed to kidney dysfunction. Hyperlipidemia: - Long-standing history, previously managed with medication. - Recent discontinuation of antihypertensive medication due to low blood pressure readings. Family History: - Family history of diabetes mellitus, heart disease, and obesity. - Mother had diabetes mellitus, heart disease, and obesity. - Brother from an accidental gunshot wound, which triggered Jimi's mental health issues. Residual Deficits: Cognitive impairments Current PT/OT/ST: None Current Living Situation: Home alone Current use of a mobility aid for walking/getting around: None PAST MEDICAL HISTORY Diagnosis Date Allergy to environmental factors Dr. Fernandes Anemia Bipolar 1 disorder (HCC) Dr. Stahl Cerebral hemorrhage (HCC) Dr. Joya, Dr. Villavicencio Chronic kidney disease (CKD), stage III (moderate) ([facility]) Dr. Arthur Cognitive decline DDD (degenerative disc disease), lumbar Essential hypertension Family history of prostate cancer in father GERD (gastroesophageal reflux disease) Hx of gallstones s/p cholecystectomy Hyperlipidemia Internal hemorrhoids Irritable bowel syndrome Kidney dysfunction LBBB (left bundle branch block) incomplete. Negative echo in 2018. Lumbar spinal stenosis 07/27/2024 OA (osteoarthritis) of knee Obesity (BMI 30.0-34.9) Vitamin D deficiency PAST SURGICAL HISTORY Procedure Laterality Date APPENDECTOMY remotely COLONOSCOPY FLX DX W/COLLJ SPEC WHEN PFRMD 06/15/2014 Colonoscopy COLONOSCOPY SCREENING Bilateral 08/22/2022 ESOPHAGOGASTRODUODENOSCOPY TRANSORAL DIAGNOSTIC 06/15/2014 EGD INCISION & DRAINAGE ABSCESS SIMPLE/SINGLE both sides of face. KNEE SURGERY HX arthroscopic surgery for cartilage removal. unsure which knee L'SCOPE CHOLECYSTECTOMY 12/2021 FAMILY HISTORY Problem Relation Age of Onset Cancer Father prostate, skin cancer Hypertension Father Coronary Artery Disease Mother stroke and mi Diabetes Mother Heart Sister [place] age 50s Mental illness Brother suicide Mental illness Brother Heart Maternal Grandmother Diabetes Maternal Grandmother Breast Cancer Paternal Grandmother Mental illness Brother hunting accident Social History Tobacco Use Smoking status: Never Smokeless tobacco: Never Substance Use Topics Alcohol use: No Drug use: No MEDICATIONS Current Outpatient Medications Medication Sig atorvastatin (LIPITOR) 80 mg tablet Take 1 tablet by mouth once daily. fenofibrate nanocrystallized (TRICOR) 48 mg tablet Take 1 tablet by mouth once daily. omeprazole (PRILOSEC) 20 mg capsule Take 1 capsule by mouth daily before breakfast. 1/2 hr before meal. gabapentin (NEURONTIN) 300 mg capsule Take 1 capsule by mouth daily at bedtime for 90 days. cholecalciferol, Vitamin D3, (VITAMIN D3) 1,250 mcg (50,000 unit) cap capsule Take 1 capsule by mouth one time a week. lamoTRIgine (LAMICTAL) 200 mg tablet Take 300 mg by mouth once daily. clonazePAM (KLONOPIN) 1 mg tablet Take 1 mg by mouth at bedtime as needed. zolpidem (AMBIEN) 10 mg tab Take by mouth at bedtime as needed. venlafaxine XR (EFFEXOR XR) 150 mg tr24 Take by mouth once daily. DULoxetine (CYMBALTA) 60 mg capsule Take 60 mg by mouth twice daily. FERROUS SULFATE (HIGH POTENCY IRON ORAL) Take 1 tablet by mouth once daily. cyanocobalamin (VITAMIN B-12) 500 mcg tablet Take 2 tablets by mouth once daily. CARBATROL 300 MG 12 HR CAP Take two capsules two(2) times daily. docusate sodium (COLACE) 100 mg capsule Take 100 mg by mouth twice daily. OLANZapine (ZYPREXA) 10 mg tablet Take 2 tablets by mouth daily at bedtime. No current facility-administered medications for this visit. Facility-Administered Medications Ordered in Other Visits Medication Dose Route Frequency propofol injection (DIPRIVAN) INTRAVENOUS PRN ALLERGIES ALLERGIES Allergen Reactions Biaxin [Clarithromy* Intolerance Depakote [Divalproe* Intolerance Ibuprofen Intolerance advil Latex Unknown Prozac [Fluoxetine * Intolerance Spectazole [Econazo* Intolerance Wellbutrin [Bupropi* Intolerance CAUSES CATATONIC STATE PHYSICAL EXAMINATION BP 163/84 Pulse 80 Ht 180.3 cm (5' 11) Wt 104.3 kg (230 lb) BMI 32.08 kg/m General/Mental status: Awake, alert and oriented. No acute distress Speech: mildly dysarthric Comprehension: Intact Cranial Nerves: pupils are symmetric and equally reactive. Visual workman full to confrontation. No gaze deviation noted. No static or evoked nystagmus. Face appears symmetric bilaterally and there isno ptosis. Uvula midline. Tongue is central upon protrusion. Ophthalmoscope: Deferred Motor exam: Antiresistant strength bilaterally Motor Tone: Normal No involuntary movements Sensory: Intact sensation in all modalities. Reflexes: Babinskis downgoing bilaterall; Goff's absent; Reflexes 1+ symmetric Co-ordination: FNF intact; HTS intact Gait: normal stride with symmetric arm swing bilaterally, gait is somewhat fast paced with difficulty stopping. LABS Cholesterol: Cholesterol, Total (mg/dL) Date Value 03/03/2024 164 04/10/2021 182 LDL Cholesterol (mg/dL) Date Value 03/03/2024 97 04/10/2021 106 HDL Cholesterol (mg/dL) Date Value 03/03/2024 43 04/10/2021 46 Triglyceride (mg/dL) Date Value 03/03/2024 119 04/10/2021 150 Diabetes: Hemoglobin A1C (%) Date Value 03/03/2024 5.2 03/28/2021 5.5 IMAGING MRI brain/MRA brain/carotid 02/06/24 No acute intracranial pathology. Innumerable chronic microhemorrhages, of uncertain etiology. No stenosis or occlusion in the head or neck. Patient Entered Questionnaires 08/02/2024 Health Status Impact by Stroke or CVD Impact To a great extent PROMIS/NeuroQoL Score Percentiles 08/02/2024 07/14/2024 05/26/2024 Physical Health Physical Function Percentile 4 2 Sleep Percentile 99 Fatigue Percentile 2 Pain Interference Percentile 8 Proxy-reported 08/02/2024 PROMIS SOCIAL ROLE SCORE Social Role Satisfaction Percentile 4 08/02/2024 04/24/2024 Mental Health NeuroQol Cognitive Function Percentile 5 General Self-Efficacy Percentile 7 07/14/2024 04/24/2024 PROMIS Global Health Scale Physical Health Percentile 7 10 Mental Health Percentile 34 26* Patient-reported Percentiles provide an indication of how a patient's score ranks in relation to the [place] general population. > 31st percentile is within normal limits or better * < 31st percentile is at least SD worse than population, which may be clinically relevant < 16th percentile is at least 1 SD worse than population and warrants attention Descriptive Summary for PROMIS Physical Function T-score = 32 (Percentile 4) Unable - Do 2 hours of physical labor Unable - Walk at a normal speed. Depression Screenin08/02/2024 04/24/2024 PHQ-9 Score 7 15 Self-Harm Response Not at all Not at all PHQ-9 Scores: PHQ-9 Self-Harm (Item 9) Response: 0 - 9 No to Mild depression 0 - Not at all 10 - 14 Moderate depression 1 - Several Days > 15 Severe depression 2 - More than half the days 3 - Nearly every day 04/24/2024 Sleep Apnea Probability Score Probability (%) 55 (Recommend sleep study) Stroke Mechanism and Scales Modified [place] Score: Score: 2 NIH Stroke Scale: LOC: 0 LOC Questions: 0 LOC Commands: 0 LOC Normal Gaze: 0 Visual Workman: 0 Facial Palsy: 0 Motor Left Arm: 0 Motor Right Arm: 0 Motor Left Le Motor Right Le Limb Ataxia: 0 Sensory: 0 Language: 0 Dysarthria: 1 Extinction/Neglect: 0 Total Daily NIHSS: 1 Cerebrovascular Disease w/o Stroke Event: Cerebral Microbleeds IMPRESSION Abnormal MRI brain -- evidence of bilateral SWI hypoattenuation in cortical predominant location, without any obvious trigger otherwise. Arguments in favor of CAA include spontaneous development and cortical location of these microbleeds, however arguments against the diagnosis include absence of momin perficial siderosis or any macro-hemorrhages. Additionally, there is some association of cerebral microbleeds with CKD which may also be of interest in his case. Cognitive decline -- this is of likely mixed etiology, with an underlying element of pseudodementiaalso playing a significant role. His MRI brain demonstrates only mild atrophy, while his MOCA scores are also reasonable. Additionally, an interictal EEG did not demonstrate evidence of any cortical d ysfunction. LLE pain, and underlying sensory neuropathy -- unclear etiology, only mild lumbosacral disease to explain above. Some of his ambulatory difficulties may be related to same, and also question underlying EPS secondary to chronic Olanzipine use (particularly with gait issues). CKD -- of unclear etiology. PLAN Recommend checking repeat MRI brain in 6 months to evaluate for any interval change in microbleed burden. Continued close follow up with Dr Joya, as well as his psychiatry team for symptom management. Discussed importance of close BP monitoring and target close to 120/80. Avoiding use of any antiplatelet/anticoagulation unless cleared from stroke neurology perspective Follow up in 6 months post MRI Medical Decision Making: Medical Decision Making Level: 1 - N/A I spent a total of 60 minutes on the date of service which included preparing to see the patient, [id number] patient care, completing clinical documentation, obtaining and/or reviewing separately obtained history, performing a medically appropriate examination, counseling and educating the patient/family/caregiver, ordering medications, tests, or procedures, communicating with other HCPs (not separately reported), independently interpreting results (not separately reported), communicating results to the patient/family/caregiver, and care coordination (not separately reported) SIGNATURE Ismael Villavicencio MD [facility] Kel Joya [address] [id number] Alpesh Hill [address] [phone] documented in this encounterK[facility]04-01-[facility]25 NoteHNO ID: [id number] Author: ALPESH HILL MD Service: ? Author Type: Physician Type: Progress Notes Filed: 07/27/2024 11:05 Note Text: Chief Complaint Patient presents with: ED Follow-up HPI Jimi Soto is a 59 year old male who presents here today for ER Follow Up.. Patient evaluated at [facility] ED on 07/05/2024 for complaint of intermittent bilateral lower leg pain x 2 months. Obtained xray of lumbar spine which showed degenerative changes. No signs of cauda equina on history or exam. Started on prednisone and given rx for gabapentin for home with recommendation to f/u with our office. Since discharge, he had f/u with neurology on 07/06 and discussed symptoms with their office. Obtained MRI of the lumbar spine which showed: Mild canal stenosis at L3-4. Bony foraminal stenosis at L3-4 through L5-S1 as outlined above. Obtained EMG as well which showed sensory polyneuropathy. Refilled patient's gabapentin at appointment and referred to PT based on EMG and MRI reports. Today, he states he is still getting pain in his lower legs on almost daily basis. Pain up to 10/10 going from hips to his ankles. Episodes typically last a few hours to a whole day. Has been taking gabapentin as prescribed without much improvement thus far, but was told it could take up to 6 weeks to take effect. Not taking anything OTC for pain. Has not tried ice/heat or any home exercises. Denies loss of bowel/bladder control, saddle anesthesia, LE weakness, fever/chills, fall/injury to his back since ER evaluation. He states that he has scheduled appointment with PT for later this month. No history of spinal surgery. Requesting refill on his cholesterol medication. Past medical history, appointments, medications, allergies reviewed. Previous Medical History PAST MEDICAL HISTORY Diagnosis Date Allergy to environmental factors Dr. Fernandes Anemia Bipolar 1 disorder ([facility]) Dr. Stahl Cerebral hemorrhage ([facility]) Dr. Joya, Dr. Villavicencio Chronic kidney disease (CKD), stage III (moderate) ([facility]) Dr. Arthur Cognitive decline DDD (degenerative disc disease), lumbar Essential hypertension Family history of prostate cancer in father GERD (gastroesophageal reflux disease) Hx of gallstones s/p cholecystectomy Hyperlipidemia Internal hemorrhoids Irritable bowel syndrome Kidney dysfunction LBBB (left bundle branch block) incomplete. Negative echo in 2018. Lumbar spinal stenosis 07/27/2024 OA (osteoarthritis) of knee Obesity (BMI 30.0-34.9) Vitamin D deficiency Previous Surgical History PAST SURGICAL HISTORY Procedure Laterality Date APPENDECTOMY remotely COLONOSCOPY FLX DX W/COLLJ SPEC WHEN PFRMD 06/15/2014 Colonoscopy COLONOSCOPY SCREENING Bilateral 08/22/2022 ESOPHAGOGASTRODUODENOSCOPY TRANSORAL DIAGNOSTIC 06/15/2014 EGD INCISION AND DRAINAGE ABSCESS SIMPLE/SINGLE both sides of face. KNEE SURGERY HX arthroscopic surgery for cartilage removal. unsure which knee L'SCOPE CHOLECYSTECTOMY 12/2021 Family History FAMILY HISTORY Problem Relation Age of Onset Cancer Father prostate, skin cancer Hypertension Father Coronary Artery Disease Mother stroke and mi Diabetes Mother Heart Sister [place] age 50s Mental illness Brother suicide Mental illness Brother Heart Maternal Grandmother Diabetes Maternal Grandmother Breast Cancer Paternal Grandmother Mental illness Brother hunting accident Patient Allergies ALLERGIES Allergen Reactions Biaxin [Clarithromy* Intolerance Depakote [Divalproe* Intolerance Ibuprofen Intolerance advil Latex Unknown Prozac [Fluoxetine * Intolerance Spectazole [Econazo* Intolerance Wellbutrin [Bupropi* Intolerance CAUSES CATATONIC STATE Current Medications Current Outpatient Medications on File Prior to Visit Medication Sig omeprazole (PRILOSEC) 20 mg capsule Take 1 capsule by mouth daily before breakfast. 1/2 hr before meal. gabapentin (NEURONTIN) 300 mg capsule Take 1 capsule by mouth daily at bedtime for 90 days. cholecalciferol, Vitamin D3, (VITAMIN D3) 1,250 mcg (50,000 unit) cap capsule Take 1 capsule by mouth one time a week. fenofibrate nanocrystallized (TRICOR) 48 mg tablet Take 1 tablet by mouth once daily. atorvastatin (LIPITOR) 80 mg tablet Take 1 tablet by mouth once daily. lamoTRIgine (LAMICTAL) 200 mg tablet Take 300 mg by mouth once daily. clonazePAM (KLONOPIN) 1 mg tablet Take 1 mg by mouth at bedtime as needed. zolpidem (AMBIEN) 10 mg tab Take by mouth at bedtime as needed. venlafaxine XR (EFFEXOR XR) 150 mg tr24 Take by mouth once daily. DULoxetine (CYMBALTA) 60 mg capsule Take 60 mg by mouth twice daily. FERROUS SULFATE (HIGH POTENCY IRON ORAL) Take 1 tablet by mouth once daily. cyanocobalamin (VITAMIN B-12) 500 mcg tablet Take 2 tablets by mouth once daily. CARBATROL 300 MG 12 HR CAP Take two capsules two(2) times daily. predniSONE (DELTASONE) 20 mg tablet Take 60 mg by mouth once (more content not included)...[facility]04-01-2025 History of Present illness Narrative* Alpesh Hill MD - 07/27/2024 10:09 AM EDT Chief Complaint Patient presents with: ED Follow-up HPI Jimi Soto is a 59 year old male who presents here today for ER Follow Up.. Patient evaluated at [facility] ED on 07/05/2024 for complaint of intermittent bilateral lower leg pain x 2months. Obtained xray of lumbar spine which showed degenerative changes. No signs of cauda equina on history or exam. Started on prednisone and given rx for gabapentin for home with recommendation tof/u with our office. Since discharge, he had f/u with neurology on 07/06 and discussed symptoms with their office. Obtained MRI of the lumbar spine which showed: Mild canal stenosis at L3-4. Bony foraminal stenosis at L3-4 through L5-S1 as outlined above. Obtained EMG as well which showed sensory polyneuropathy. Refilled patient's gabapentin at appointment and referred to PT based on EMG and MRI reports. Today, he states he is still getting pain in his lower legs on almost daily basis. Pain up to 10/10going from hips to his ankles. Episodes typically last a few hours to a whole day. Has been taking gabapentin as prescribed without much improvement thus far, but was told it could take up to 6 weeksto take effect. Not taking anything OTC for pain. Has not tried ice/heat or any home exercises. Denies loss of bowel/bladder control, saddle anesthesia, LE weakness, fever/chills, fall/injury to his back since ER evaluation. He states that he has scheduled appointment with PT for later this month. No history of spinal surgery. Requesting refill on his cholesterol medication. Past medical history, appointments, medications, allergies reviewed. Previous Medical History PAST MEDICAL HISTORY Diagnosis Date Allergy to environmental factors Dr. Fernandes Anemia Bipolar 1 disorder ([facility]) Dr. Stahl Cerebral hemorrhage ([facility]) Dr. Joya, Dr. Villavicencio Chronic kidney disease (CKD), stage III (moderate) ([facility]) Dr. Arthur Cognitive decline DDD (degenerative disc disease), lumbar Essential hypertension Family history of prostate cancer in father GERD (gastroesophageal reflux disease) Hx of gallstones s/p cholecystectomy Hyperlipidemia Internal hemorrhoids Irritable bowel syndrome Kidney dysfunction LBBB (left bundle branch block) incomplete. Negative echo in 2018. Lumbar spinal stenosis 07/27/2024 OA (osteoarthritis) of knee Obesity (BMI 30.0-34.9) Vitamin D deficiency Previous Surgical History PAST SURGICAL HISTORY Procedure Laterality Date APPENDECTOMY remotely COLONOSCOPY FLX DX W/COLLJ SPEC WHEN PFRMD 06/15/2014 Colonoscopy COLONOSCOPY SCREENING Bilateral 08/22/2022 ESOPHAGOGASTRODUODENOSCOPY TRANSORAL DIAGNOSTIC 06/15/2014 EGD INCISION & DRAINAGE ABSCESS SIMPLE/SINGLE both sides of face. KNEE SURGERY HX arthroscopic surgery for cartilage removal. unsure which knee L'SCOPE CHOLECYSTECTOMY 12/2021 Family History FAMILY HISTORY Problem Relation Age of Onset Cancer Father prostate, skin cancer Hypertension Father Coronary Artery Disease Mother stroke and mi Diabetes Mother Heart Sister [place] age 50s Mental illness Brother suicide Mental illness Brother Heart Maternal Grandmother Diabetes Maternal Grandmother Breast Cancer Paternal Grandmother Mental illness Brother hunting accident Patient Allergies ALLERGIES Allergen Reactions Biaxin [Clarithromy* Intolerance Depakote [Divalproe* Intolerance Ibuprofen Intolerance advil Latex Unknown Prozac [Fluoxetine * Intolerance Spectazole [Econazo* Intolerance Wellbutrin [Bupropi* Intolerance CAUSES CATATONIC STATE Current Medications Current Outpatient Medications on File Prior to Visit Medication Sig omeprazole (PRILOSEC) 20 mg capsule Take 1 capsule by mouth daily before breakfast. 1/2 hr before meal. gabapentin (NEURONTIN) 300 mg capsule Take 1 capsule by mouth daily at bedtime for 90 days. cholecalciferol, Vitamin D3, (VITAMIN D3) 1,250 mcg (50,000 unit) cap capsule Take 1 capsule by mouth one time a week. fenofibrate nanocrystallized (TRICOR) 48 mg tablet Take 1 tablet by mouth once daily. atorvastatin (LIPITOR) 80 mg tablet Take 1 tablet by mouth once daily. lamoTRIgine (LAMICTAL) 200 mg tablet Take 300 mg by mouth once daily. clonazePAM (KLONOPIN) 1 mg tablet Take 1 mg by mouth at bedtime as needed. zolpidem (AMBIEN) 10 mg tab Take by mouth at bedtime as needed. venlafaxine XR (EFFEXOR XR) 150 mg tr24 Take by mouth once daily. DULoxetine (CYMBALTA) 60 mg capsule Take 60 mg by mouth twice daily. FERROUS SULFATE (HIGH POTENCY IRON ORAL) Take 1 tablet by mouth once daily. cyanocobalamin (VITAMIN B-12) 500 mcg tablet Take 2 tablets by mouth once daily. CARBATROL 300 MG 12 HR CAP Take two capsules two(2) times daily. predniSONE (DELTASONE) 20 mg tablet Take 60 mg by mouth once daily. docusate sodium (COLACE) 100 mg capsule Take 100 mg by mouth twice daily. OLANZapine (ZYPREXA) 10 mg tablet Take 2 tablets by mouth daily at bedtime. Current Facility-Administered Medications on File Prior to Visit Medication propofol injection (DIPRIVAN) Social History Social History Tobacco Use Smoking status: Never Smokeless tobacco: Never Substance Use Topics Alcohol use: No Drug use: No Review of Symptoms REVIEW OF SYSTEMS See HPI EXAM: BP 118/76 Pulse 72 Resp 16 Wt 110 kg (242 lb 9.6 oz) SpO2 96% BMI 33.00 kg/m General Appearance: Well appearing, alert, in no acute distress, well-hydrated, well nourished.. Skin: Skin color, texture, turgor normal, no suspicious rashes or lesions. Back:no pain to palpation of vertebrae, good flexion and extension, good range of motion, no muscletenderness, reflexes are 2+ and symmetric, motor and sensory appear to be normal, negative SLR test, no evidence of scoliosis Lungs: Lungs clear to auscultation. No wheezing, rhonchi, rales.. Heart: RRR without murmur, gallop, or rubs. No ectopy. Health Maintenance List Depression Screening Never done Anxiety Screening Never done BP Controlled (<130/80) due on 04/02/2024 Colorectal Cancer Screening due on 06/15/2024 Prostate Cancer Screening Discussion due on 07/05/2024 Hemoglobin/Hematocrit due on 03/03/2025 Annual PCP Team Chronic Disease Visit due on 05/19/2025 Serum Creatinine due on 05/19/2025 Diabetes Screening due on 05/19/2027 DTaP,Tdap,Td Vaccine(2 - Td or Tdap) due on 01/18/2028 Lipid Screening due on 03/03/2029 RSV Vaccine(1 - 1-dose 75+ series) due on 2038 Influenza Vaccine Completed Hepatitis C Screening Completed HIV Screening Completed Shingrix Vaccine Completed Covid-19 Vaccine Completed Pneumococcal Vaccine: 50+ Completed ASSESSMENT/PLAN: 1. Spinal stenosis of lumbar region, unspecified whether neurogenic claudication present - ICD9: 724.02, ICD10: M48.061 (primary diagnosis) Mild spinal stenosis on MRI. Agree with recommendations from neurology and will have him continue with gabapentin and PT as ordered by their office. Discussed adding on muscle relaxer, but patient not interested due to possible sedating effects. Would avoid NSAIDs with cerebral micro hemorrhages. Given lower back exercises for home and discussed OTC tylenol, ice/heat, and rest. Red flags for re-assessment reviewed with patient in detail. 2. Bilateral leg pain - ICD9: 729.5, ICD10: M79.604, M79.605 2/2 lumbar stenosis. See above. Alpesh Hill MD documented in this encounterK[facility]04-01-2025 Miscellaneous Notes* Telephone Encounter - Lou Katz LPN - 07/27/2024 7:49 AM EDT PT scheduled. Lou Katz LPN * Telephone Encounter - Lou Katz LPN - 07/22/2024 10:15 AM EDT TC to pt who would like to try PT. Please see consult placed. Lou Katz LPN * Telephone Encounter - Lou Katz LPN - 07/22/2024 9:25 AM EDT MRI of the lumbar spine showing no significant central stenosis but does show narrowing where the nerves exit the spine, specifically from L4-S1. This can cause symptoms radiating down the legs, however, not necessarily appreciated on EMG. We can try physical therapy to help relieve some of this pressure on the nerves and see if it helps with his symptoms. If interested, will send in referral. Dianelys Reynolds PA-C * Telephone Encounter - Litzy May RN - 07/21/2024 3:35 PM EDT Patient asking for ordering provider to advise on his recent Spine MRI results, when able. Litzy May RN documented in this encounterK[facility]04-01-2025 Telephone encounter Note * Telephone Encounter - Lou Katz LPN - 07/27/2024 7:49 AM EDT PT scheduled. Lou Katz LPN [facility]03-31-20[facility] Telephone encounter Note* Telephone Encounter - Alissa Calderón RN - 07/26/2024 5:32 PM EDT Pt called and is notified of providers results and instructions. Pt voices understanding. Alissa Calderón RN [facility]03-31-2025 Miscellaneous Notes* Telephone Encounter - Alissa Calderón RN - 07/26/2024 5:32 PM EDT Pt called and is notified of providers results and instructions. Pt voices understanding. Alissa Calderón RN documented in this encounterK[facility]03-27-2025 Telephone encounter Note * Telephone Encounter - Lou Katz LPN - 07/22/2024 10:15 AM EDT TC to pt who would like to try PT. Please see consult placed. Lou Katz LPN [facility]03-27-2025 Telephone encounter Note* Telephone Encounter - Lou Katz LPN - 07/22/2024 9:25 AM EDT MRI of the lumbar spine showing no significant central stenosis but does show narrowing where the nerves exit the spine, specifically from L4-S1. This can cause symptoms radiating down the legs, however, not necessarily appreciated on EMG. We can try physical therapy to help relieve some of this pressure on the nerves and see if it helps with his symptoms. If interested, will send in referral. Dianelys Reynolds PA-C [facility]03-26-2025 Telephone encounter Note* Telephone Encounter - Litzy May RN - 07/21/2024 3:35 PM EDT Patient asking for ordering provider to advise on his recent Spine MRI results, when able. Litzy May RN [facility]03-25-2025 History of Present illness Narrative* Verna Guaman RT(R) - 07/20/2024 2:30 PM EDT Radiology Service Progress Note PATIENT NAME: Jimi Soto DATE OF SERVICE: July 20, 2024 TIME: 3:00 PM PATIENT IDENTITY VERIFICATION COMPLETED USING TWO (2) IDENTIFIERS: Name and Date of confirmedby patient verbally. FALL SCREENING: Has the patient had 2 falls in the last year or 1 fall with injury or currently using an Ambulatory Assistive Device (Walker, Cane, Wheelchair, Crutches, etc.)? No PATIENT GENDER DATA: Assigned male at PATIENT RELEVANT IMPLANT DATA REVIEWED: Yes PATIENT PRESENTS WITH AN IMPLANTABLE OR ATTACHED PLASTIC INJECTION MOLD MAKER: No RADIOLOGY DEPARTMENT: MR; Exam(s) Completed: Spine: Lumbar spine PERIPHERAL IV DATA: Not applicable SIGNED BY: RT Manuela(R) July 20, 2024 3:00 PM documented in this encounterKettering [facility]03-25-2025 NoteHNO ID: [id number] Author: VERNA GUAMAN RT(R) Service: ? Author Type: Technologist Type: Progress Notes Filed: 07/20/2024 15:01 Note Text: Radiology Service Progress Note PATIENT NAME: Jimi Soto DATE OF SERVICE: July 20, 2024 TIME: 3:00 PM PATIENT IDENTITY VERIFICATION COMPLETED USING TWO (2) IDENTIFIERS: Name and Date of confirmed by patient verbally. FALL SCREENING: Has the patient had 2 falls in the last year or 1 fall with injury or currently using an Ambulatory Assistive Device (Walker, Cane, Wheelchair, Crutches, etc.)? No PATIENT GENDER DATA: Assigned male at PATIENT RELEVANT IMPLANT DATA REVIEWED: Yes PATIENT PRESENTS WITH AN IMPLANTABLE OR ATTACHED PLASTIC INJECTION MOLD MAKER: No RADIOLOGY DEPARTMENT: MR; Exam(s) Completed: Spine: Lumbar spine PERIPHERAL IV DATA: Not applicable SIGNED BY: KD Roy) July 20, 2024 3:00 [facility]03-25-2025 Telephone encounter Note* Telephone Encounter - Dianelys Reynolds PA-C - 07/20/2024 1:42 PM EDT EMG shows signs of neuropathy, but no significant impingement of nerves I the lumbar spine. Will order basic blood work looking for common causes of neuropathy. [facility]03-25-2025 Miscellaneous Notes* Telephone Encounter - Dianelys Reynolds PA-C - 07/20/2024 1:42 PM EDT EMG shows signs of neuropathy, but no significant impingement of nerves I the lumbar spine. Will order basic blood work looking for common causes of neuropathy. documented in this encounterKet[facility]03-24-2025 NoteHNO ID: [id number] Author: ÁNGELA GUTIERREZ MD Service: ? Author Type: Physician Type: Progress Notes Filed: 07/19/2024 13:51 Note Text: UNIVERSAL PROTOCOL / SAFETY CHECKLIST Procedure to be Performed: EMG Sign In: A Moment of CARE was completed. Personnel directly involved with the procedure wore the appropriate PPE (Personal Protective Equipment). Patient/Surrogate Stated/Verified: Patient name, Date of , Relevant allergies, and The intended procedure Time Out Communication: Intended patient and procedure match the source documents. Correct side/site marked and visible. Sign Out: SIGN OUT (optional for EMERGENT procedures): Post-procedure follow-up management communicated and Plan of Care Visit completed when applicable. Renate Hearn EMG Tech Ángela Gutierrez [facility]03-24-2025 History of Present illness Narrative* Ángela Gutierrez MD - 07/19/2024 12:56 PM EDT UNIVERSAL PROTOCOL / SAFETY CHECKLIST Procedure to be Performed: EMG Sign In: A Moment of CARE was completed. Personnel directly involved with the procedure wore the appropriate PPE (Personal Protective Equipment). Patient/Surrogate Stated/Verified: Patient name, Date of , Relevant allergies, and The intended procedure Time Out Communication: Intended patient and procedure match the source documents. Correct side/site marked and visible. Sign Out: SIGN OUT (optional for EMERGENT procedures): Post-procedure follow-up management communicated and Plan of Care Visit completed when applicable. Renate Hearn EMG Tech Ángela Gutierrez MD documented in this encounterK[facility]03-19-2025 NoteHNO ID: [id number] Author: CORRINA JEFF PT Service: ? Author Type: Physical Therapist Type: Progress Notes Filed: 07/14/2024 19:43 Note Text: Episode Visit Count: 7 Therapist That Will Accept/Oversee The Plan Of Care: Lynn Jeff Start of Care Date: 05/18/24 Onset Date: 03/19/24 Plan of Care Certification Date: 05/18/24 Next Certification Due Date: 08/16/24 Patient Identified by Name and Date of : Yes REHABILITATION AND SPORTS THERAPY PHYSICAL THERAPY DISCONTINUANCE OF CARE PLAN OF CARE UPDATE: Assessment: Jimi Soto is discontinued from Physical Therapy services due to goal achievement. and goal achievement and maximal benefit.. Patient was seen for 7 visits from Start of Care Date: 05/18/24 to 07/14/2024 and treatment included: Therapeutic exercise, Neuromuscular re-education, Therapeutic activities, and Gait training. Goals for Episode of Care: established 05/18/24 Patient reported outcome of pain Interference will decrease T -score by a minimum of 5 points. Patient reported outcome of physical function, self-efficacy, and mobility will increase T-score by a minimum 5 points. [place] in home exercise program.M Patient will increase flexibility of Bilat hams and lower extremity's as needed to WNL to improve ability to maintain proper posture and improve mechanics.M Patient will be able to Perform aTimed Up and Go to 14 sec seconds to demonstrate decreased risk of falling. 8.85 sec Patient will improve 10MWT to 1.2m/s with no assistive device to demonstrate improvement in functional community ambulation . Patient will improve 5 time sit to stand to demonstrate improvement in functional lower extremity strength. M 9.0 sec Reciprocal stair negotiation.PM-for safety steps 1 at a time Patient Goals: to be able to control the episodes of unsteadiness. (and loss of balances) M Classification Diagnosis Grouping: CVA SUBJECTIVE: Pt reports he found out he has been having little brain bleeds and big ones, and also will have a few more medical tests coming up soon. I feel Im doing good with my walking , and exercises. and am ready for Discharge from PT. Patient Goals: to be able to control the episodes of unsteadiness. (and loss of balances) Functional Limitations: (Now stable with ambulation , dynamic balance, stairs tx , able to safely enter exit his apt.) Pain: Pain Pain Level: 0 Pain Location: Leg - Left, Leg - Right Post Treatment Pain Post Treatment Pain Level: 0 Post Treatment Pain Location: Leg - Right, Leg - Left PROMIS Scales 07/14/2024 06/22/2024 06/15/2024 Higher is Better Phys Func - T Score 32 (moderate dysfunction) Phys Func - Percentile 4 Self-Eff Symptom - T Score 36 (Low) Incomplete Self-Eff Symptom - Percentile 8 Communication - Score 50 Proxy-reported 07/14/2024 04/24/2024 Lower is Better Pain Interference - T Score 64 (moderate) 56 (mild) Pain Interference - Percentile 8 27 T-scores: mean of general population = 50. 5 points is clinically meaningfully difference Percentiles provide an indication of how the patient's score ranks in relation to the general population. Higher percentile rankings indicate better function/quality of life. 50th percentile is the average of the general population and indicates half of respondents had a worse score. OBJECTIVE MEASURES WITH LEVEL OF FUNCTION: LE Flexibility R Hamstring Flexibility: mild stiff , 75 deg SLR L Hamstring Flexibility: min- mod stiff 60 degree SLR Gait Gait: Independent Gait Distance (feet): > 500' Gait Device: None Functional Performance Test Results 10 Meter Walk Test Trial 1 (seconds): 4.5 10 Meter Walk Test Trial 2 (seconds): 4.6 10 Meter Walk Test Average (m/sec): 1.32 4 Stage Balance Test Semi-tandem base of support (sec): 30 sec (R in front 24 sec;) Tandem base of support (sec): 24 sec (24 R fore ; L fore:30sec) Single leg stance - right (sec): 8 sec Single leg stance - left (sec): 19 sec (sec) Orozco Balance Scale Sit to stand : 4 - Able to stand without using hands and stablize independently Standing unsupported : 4 - Able to stand safety 2 min Sitting : 4 - Able to sit safety and securely for 2 min Stand to sit: 4 - Sits safey minimal use of hands Transfers: 4 - Able to transfer safety with minor use of hands Standing unsupported with eyes closed : 4 - Able to stand 10 sec safely Standing unsupported with feet together : 4 - Able to place feet together independently and stand 1 min safely Reaching forward : 4 - Can reach forward confidently >10 inches (18 ) Picking up object from floor : 4 - Able to picker feeder object safely and easily Looking over shoulder: Looks behind from both sides and weight shifts well Turn 360 degrees : 4 - Able to turn 360* safety in 4 sec or less Alternate foot on step: 4 - Able to stand independently and safely and complete 8 steps in 20 sec (12.5 sec) Tandem standing : 4 - Able to plac (more content not included)...[facility]03-19-2025 History of Present illness Narrative* Corrina Jeff, PT - 07/14/2024 7:39 PM EDT Images from the original note were not included. Episode Visit Count: 7 Therapist That Will Accept/Oversee The Plan Of Care: Lynn Jeff Start of Care Date: 05/18/24 Onset Date: 03/19/24 Plan of Care Certification Date: 05/18/24 Next Certification Due Date: 08/16/24 Patient Identified by Name and Date of : Yes [facility] PHYSICAL THERAPY DISCONTINUANCE OF CARE PLAN OF CARE UPDATE: Assessment: Jimi Soto is discontinued from Physical Therapy services due to goal achievement. andgoal achievement and maximal benefit.. Patient was seen for 7 visits from Start of Care Date: 05/18/24 to 07/14/2024 and treatment included: Therapeutic exercise, Neuromuscular re-education, Therapeutic activities, and Gait training. Goals for Episode of Care: established 05/18/24 Patient reported outcome of pain Interference will decrease T -score by a minimum of 5 points. Patient reported outcome of physical function, self-efficacy, and mobility will increase T-score bya minimum 5 points. [place] in home exercise program.M Patient will increase flexibility of Bilat hams and lower extremity's as needed to WNL to improve ability to maintain proper posture and improve mechanics.M Patient will be able to Perform aTimed Up and Go to 14 sec seconds to demonstrate decreased risk offalling. 8.85 sec Patient will improve 10MWT to 1.2m/s with no assistive device to demonstrate improvement in functional community ambulation . Patient will improve 5 time sit to stand to demonstrate improvement in functional lower extremity strength. M 9.0 [address]iprocal stair negotiation.PM-for safety steps 1 at a time Patient Goals: to be able to control the episodes of unsteadiness. (and loss of balances) M Classification Diagnosis Grouping: CVA SUBJECTIVE: Pt reports he found out he has been having little brain bleeds and big ones, and also will have a few more medical tests coming up soon. I feel Im doing good with my walking , and exercises. and am ready for Discharge from PT. Patient Goals: to be able to control the episodes of unsteadiness. (and loss of balances) Functional Limitations: (Now stable with ambulation , dynamic balance, stairs tx , able to safely enter exit his apt.) Pain: Pain Pain Level: 0 Pain Location: Leg - Left, Leg - Right Post Treatment Pain Post Treatment Pain Level: 0 Post Treatment Pain Location: Leg - Right, Leg - Left PROMIS Scales 07/14/2024 06/22/2024 06/15/2024 Higher is Better Phys Func - T Score 32 (moderate dysfunction) Phys Func - Percentile 4 Self-Eff Symptom - T Score 36 (Low) Incomplete Self-Eff Symptom - Percentile 8 Communication - Score 50 Proxy-reported 07/14/2024 04/24/2024 Lower is Better Pain Interference - T Score 64 (moderate) 56 (mild) Pain Interference - Percentile 8 27 T-scores: mean of general population = 50. 5 points is clinically meaningfully difference Percentiles provide an indication of how the patient's score ranks in relation to the general population. Higher percentile rankings indicate better function/quality of life. 50th percentile is the average of the general population and indicates half of respondents had a worse score. OBJECTIVE MEASURES WITH LEVEL OF FUNCTION: LE Flexibility R Hamstring Flexibility: mild stiff , 75 deg SLR L Hamstring Flexibility: min- mod stiff 60 degree SLR Gait Gait: Independent Gait Distance (feet): > 500' Gait Device: None Functional Performance Test Results 10 Meter Walk Test Trial 1 (seconds): 4.5 10 Meter Walk Test Trial 2 (seconds): 4.6 10 Meter Walk Test Average (m/sec): 1.32 4 Stage Balance Test Semi-tandem base of support (sec): 30 sec (R in front 24 sec;) Tandem base of support (sec): 24 sec (24 R fore ; L fore:30sec) Single leg stance - right (sec): 8 sec Single leg stance - left (sec): 19 sec (sec) Orozco Balance Scale Sit to stand : 4 - Able to stand without using hands and stablize independently Standing unsupported : 4 - Able to stand safety 2 min Sitting : 4 - Able to sit safety and securely for 2 min Stand to sit: 4 - Sits safey minimal use of hands Transfers: 4 - Able to transfer safety with minor use of hands Standing unsupported with eyes closed : 4 - Able to stand 10 sec safely Standing unsupported with feet together : 4 - Able to place feet together independently and stand 1min safely Reaching forward : 4 - Can reach forward confidently >10 inches (18 ) Picking up object from floor : 4 - Able to picker feeder object safely and easily Looking over shoulder: Looks behind from both sides and weight shifts well Turn 360 degrees : 4 - Able to turn 360* safety in 4 sec or less Alternate foot on step: 4 - Able to stand independently and safely and complete 8 steps in 20 sec (12.5 sec) Tandem standing : 4 - Able to place foot tandem independently and hold 30 sec Standing on leg : 4 - Able to lift leg independently and hold >10 sec (12.5) Orozco Balance Test Total (calculated): 56 Brief Dynamic Gait Index Gait on level surface: 3 Gait with speed changes: 3 Horizontal head turns: 3 Vertical head turns: 3 Total Score: 12 Functional Reach - Stand Functional Reach Stand - Right (inches): 18 in Functional Reach Stand - Left (inches): 18 in TREATMENT: Therapeutic Exercise: 1: Nustep x 5 min, L2-3 , x 5 min , no radicular pain 2: Re assessment of pt functional status 3: balance testsperformed as noted , and goals adressed 4: performed FGI, 10MWT, 4 stage balance test, FR, Orozco test 5: rev'd HEP Skilled Intervention: Patient was educated in proper exercise technique and purpose for exercises. Reviewed and educated patient on additions/changes for home exercise program as above (*). Skilled judgment was used in selection of appropriate interventions. Billing Therapeutic Exercise Treatment Minutes: 54 Skilled Treatment Time Minutes (timed and untimed codes): 54 Total Session Time (minutes): 54 Session Start Time : 1251 Session Stop Time : 1345 Corrina Jeff PT [facility] Telephone encounter Note * Telephone Encounter - Paula Mabry PSS - 07/12/2024 11:37 AM EDT Prescription Refill Information The patient has been identified by name and date of : Yes Caregiver verified no other encounters exist for this prescription request: Yes Caregiver confirmed with patient/requestor that no other refills are due, in the near future, with this provider at this time: Yes The last office visit in the department: 05/19/2024 Does the patient have a future office visit with this provider/department: Yes Requested Prescriptions Pending Prescriptions Disp Refills omeprazole (PRILOSEC) 20 mg capsule 90 capsule 1 Sig: Take 1 capsule by mouth daily before breakfast. 1/2 hr before meal. RAKESH Kendrick July 12, 2024 11:37 AM [facility]03-17-2025 Miscellaneous Notes* Telephone Encounter - Paula Mabry PSS - 07/12/2024 11:37 AM EDT Prescription Refill Information The patient has been identified by name and date of : Yes Caregiver verified no other encounters exist for this prescription request: Yes Caregiver confirmed with patient/requestor that no other refills are due, in the near future, with this provider at this time: Yes The last office visit in the department: 05/19/2024 Does the patient have a future office visit with this provider/department: Yes Requested Prescriptions Pending Prescriptions Disp Refills omeprazole (PRILOSEC) 20 mg capsule 90 capsule 1 Sig: Take 1 capsule by mouth daily before breakfast. 1/2 hr before meal. RAKESH Kendrick July 12, 2024 11:37 AM [facility] Instructions* Patient Instructions* Dianelys Reynolds PA-C - 07/06/2024 1:14 PM EDT MRI of the lumbar spine Physical therapy for the low back Continue with gabapentin 300mg at bedtime EMG of leg Follow up as planned with Dr. Joya next month Go to the ER with any worsening weakness, falls, losing control of bowel or bladder function documented in [facility] encounterK[facility]25 NoteHNO ID: [id number] Author: DIANELYS REYNOLDS PA-C Service: ? 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 Spinal stenosis of lumbar region, unspecified whether neurogenic claudication present - ICD9: 724.02, ICD10: M48.061 (primary diagnosis) 2. Pain in both lower extremities - ICD9: 729.5, ICD10: M79.604, M79.605 Patient originally follow-up for cognitive concerns and abnormal MRI of the brain. However, messaged in on due to concerns of pain in the legs and the back. Was seen in the emergency department [facility] last night, x-ray of the lumbar spine did show some diffuse degeneration patient with history of lumbar issues in the past. Notes history of sciatica as well with similar presentation. Describing onset 2 months ago, has been worsening in severity and occurrence. Notes daily symptoms that present randomly, no trigger that he can think of other than prolonged periods of standing but can also happen when sitting. No bowel or bladder incontinence or saddle anesthesia, no falls with this. No significant weakness. Patient does have some mild sensory changes on exam decreased temperature and vibration of the lower extremities. Decreased Achilles reflexes as well. At this time, due to history of lumbar disease and patient's symptom presentation concern for possible lumbar etiology. However, due to other sensory changes to discuss an EMG and patient is amenable. Due to his history of lumbar stenosis with multiple surgeries in the past we will order MRI of the lumbar spine. Discussed referral to physical therapy but patient would like to think about that. Notes that since has been on the gabapentin since last night his symptoms had completely resolved and like to continue this therapy. Refills for gabapentin were sent for the 300 mg at bedtime. Discussed red flag signs symptoms that would warrant going to the emergency department, patient agrees and understands. Patient to follow-up as planned with Dr. Joya in a month. PDMP website checked and validated. All prescriptions have been APPROPRIATELY filled. No suspicious activity was identified. 07/06/2024 by DianelysYUDELKA Mistry PA-C Encounter Diagnosis ICD-10-CM 1. Spinal stenosis of lumbar region, unspecified whether neurogenic claudication present M48.061 CONSULT TO PHYSICAL THERAPY MRI LUMBAR SPINE WO IVCON 2. Pain in both lower extremities M79.604 EMG(NEURO/NI) M79.605 CONSULT TO PHYSICAL THERAPY No follow-ups on file. Chart, labs,and relevant images reviewed. [facility] He's been complaining of intermittent numbness, weakness AND severe pain - sometimes in one leg, but is mostly in both legs; sometimes occurs from waist on down, including lower back AND hips; pain is always 10/10 pain when it occurs; he can't remember how long it lasts; happens several times a week - sometimes it lasts most of the day, which is when he can't leave the house. Stated even when he thought he could go somewhere, he was still suffering with it AND could barely walk; reports it's really difficult to stand or walk when it's really bad AND he has to get to a chair or bed quickly to get off his feet; I'm concerned about him having decreased mobility/function, especially when driving but he denies any episodes while driving. Seen on 04/30/24 for cognitive decline, concern for neurodeg vs CAA, sent to CV. Also concerned for possible PD. This is a 59 year old male presenting with pain in the legs and low back. Onset was about 2 months ago, notes it is for started when he was laying in bed and shooting pains down the backs of the legs and low back. Has been occurring intermittently, worsens the longer he standing on his feet but can also occur when he sitting. Has no idea what is going to come on, typically occurs daily but can last for variable amount of time including minutes to hours. Notes that it is getting worse in terms of severity and longevity. No significant triggers that he can think of other than noted above. No injury or other etiology that he can think of. Notes he has had sciatica in the past before which is similar. Has gone through multiple low back surgeries and physical therapy with some improvement. However, his sister was concerned that maybe he has neuropathy as well. No falls in it, does report maybe some subjective weakness but no foot drop. No bowel or bladder incontinence, no saddle anesthesia. Went to the emergency department last night at [facility] where x-ray of the (more content not included)...[facility]03-11-2025 History of Present illness Narrative* Dianelys Reynolds PA-C - 07/06/2024 12:41 PM EDT Images from the original note were not included. [facility] for [facility] Name: Jimi Soto Age: [age] year old Gender: male Primary Care Provider: Alpesh Hill MD Chief Complaint:New Patient (Worsening numbness, weakness in BLE- see mychart 06/2024) 07/06/2024 - General Neurology, Dianelys Reynolds PA-C ASSESSMENT ASSESSMENT/PLAN: 1. Spinal stenosis of lumbar region, unspecified whether neurogenic claudication present - ICD9: 724.02, ICD10: M48.061 (primary diagnosis) 2. Pain in both lower extremities - ICD9: 729.5, ICD10: M79.604, M79.605 Patient originally follow-up for cognitive concerns and abnormal MRI of the brain. However, messaged in on due to concerns of pain in the legs and the back. Was seen in the emergency department [facility] last night, x-ray of the lumbar spine did show some diffuse degeneration patient with history of lumbar issues in the past. Notes history of sciatica as well with similar presentation. Describing onset 2 months ago, has been worsening in severity and occurrence. Notes daily symptoms that present randomly, no trigger that he can think of other than prolonged periodsof standing but can also happen when sitting. No bowel or bladder incontinence or saddle anesthesia, no falls with this. No significant weakness. Patient does have some mild sensory changes on exam decreased temperature and vibration of the lower extremities. Decreased Achilles reflexes as well. Atthis time, due to history of lumbar disease and patient's symptom presentation concern for possiblelumbar etiology. However, due to other sensory changes to discuss an EMG and patient is amenable. Due to his history of lumbar stenosis with multiple surgeries in the past we will order MRI of the lumbar spine. Discussed referral to physical therapy but patient would like to think about that. Notesthat since has been on the gabapentin since last night his symptoms had completely resolved and like to continue this therapy. Refills for gabapentin were sent for the 300 mg at bedtime. Discussed red flag signs symptoms that would warrant going to the emergency department, patient agrees and understands. Patient to follow-up as planned with Dr. Joya in a month. PDMP website checked and validated. All prescriptions have been APPROPRIATELY filled. No suspiciousactivity was identified. 07/06/2024 by YUDELKA Couch PA-C Encounter Diagnosis ICD-10-CM 1. Spinal stenosis of lumbar region, unspecified whether neurogenic claudication present M48.061 CONSULT TO PHYSICAL THERAPY MRI LUMBAR SPINE WO IVCON 2. Pain in both lower extremities M79.604 EMG(NEURO/NI) M79.605 CONSULT TO PHYSICAL THERAPY No follow-ups on file. Chart, labs,and relevant images reviewed. HPI: [place] [facility] 07/04/24 He's been complaining of intermittent numbness, weakness & severe pain - sometimes in one leg, but is mostly in both legs; sometimes occurs from waist on down, including lower back & hips; pain is always 10/10 pain when it occurs; he can't remember how long it lasts;happens several times a week - sometimes it lasts most of the day, which is when he can't leave the house. Stated even when he thought he could go somewhere, he was still suffering with it & could barely walk; reports it's really difficult to stand or walk when it's really bad & he has to get to a chair or bed quickly to get off his feet; I'm concerned about him having decreased mobility/function, especially when driving but he denies any episodes while driving. Seen on 04/30/24 for cogni tive decline, concern for neurodeg vs CAA, sent to CV. Also concerned for possible PD. This is a 59 year old male presenting with pain in the legs and low back. Onset was about 2 months ago, notes it is for started when he was laying in bed and shooting pains down the backs of the legsand low back. Has been occurring intermittently, worsens the longer he standing on his feet but canalso occur when he sitting. Has no idea what is going to come on, typically occurs daily but can last for variable amount of time including minutes to hours. Notes that it is getting worse in terms of severity and longevity. No significant triggers that he can think of other than noted above. No injury or other etiology that he can think of. Notes he has had sciatica in the past before which is similar. Has gone through multiple low back surgeries and physical therapy with some improvement. However, his sister was concerned that maybe he has neuropathy as well. No falls in it, does report maybe some subjective weakness but no foot drop. No bowel or bladder incontinence, no saddle anesthesia. Went to the emergency department last night at [facility] where x-ray of the lumbar spine showed degenerative changes throughout and was given gabapentin to take home. Notes his symptoms have been completely alleviated since taking the gabapentin, tolerating well without any side effects. Was also given prednisone as well. Notes that his symptoms go throughout the entire legs butare worsened in certain spots on the upper thigh and lower leg, equal bilaterally to the lower extremities. Does also have some shooting pains down the back of the leg bilaterally. Most recent going to physical therapy for balance and was doing very well with this. Patient also notes he has had a seizure 2 since last appointment. No history of seizures in the past. Describes his episodes as a shaking he cannot control. First was when you are standing watching television and his leg started shaking, no weakness, loss of consciousness, altered mental status. States only lasted for a few minutes, no bowel or bladder incontinence or tongue biting with it. Noteshe had another episode where he was in the kitchen where his whole body started shaking, again no loss of consciousness, tongue biting or incontinence. Lasted again for a few minutes, felt fine afterwards. Does have a history of tardive dyskinesia and is currently on Lamictal. Going to PT for balance, was doing well and then started. Went to the ER last night and saw degenerative changes. No falls with this. 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 Scar Condition and Fibrosis of Skin Open Wound(s) (Multiple) of Unspecified Site(s), Without Mention of Complication Contact Dermatitis and Other Eczema, due to Unspec: ?Irritant Dermatitis Cystic Acne Scars Actinic Keratoses (Premalignant AK's) Neoplasm of Uncertain Behavior of Skin Inflamed Seborrheic Keratosis Inverted Follicular Keratosis Melanocytic Nevi of Trunk Other Seborrheic Keratosis Actinic Skin Damage Cutaneous Skin Tags Sebaceous Hyperplasia of Face Milial Cyst Postinflammatory Skin Changes Bipolar Disorder (Hcc) Anemia Hyperlipidemia Obesity, Class I, Bmi 30-34.9 Gastroesophageal Reflux Disease Ckd (Chronic Kidney Disease) Stage 3, Gfr 30-59 Ml/Min (Hcc) Chronic Kidney Disease (Ckd), Stage Iii (Moderate) (Hcc) Allergy to Environmental Factors Essential Hypertension Oa (Osteoarthritis) of Knee Cognitive Decline Balance Problems Cerebral Hemorrhage (Hcc) Hereditary Cerebral Amyloid Angiopathy (Hcc) (Hcc) Vitamin D Deficiency Cerebral Amyloid Angiopathy (Code) PAST MEDICAL HISTORY Diagnosis Date Allergy to environmental factors Dr. Fernandes Anemia Bipolar 1 disorder (HCC) Dr. Stahl Cerebral hemorrhage (HCC) Dr. Joya, Dr. Villavicencio Chronic kidney disease (CKD), stage III (moderate) (HCC) Dr. Arthur Cognitive decline Essential hypertension Family history of prostate cancer in father GERD (gastroesophageal reflux disease) Hx of gallstones s/p cholecystectomy Hyperlipidemia Internal hemorrhoids Irritable bowel syndrome Kidney dysfunction LBBB (left bundle branch block) incomplete. Negative echo in 2018. OA (osteoarthritis) of knee Obesity (BMI 30.0-34.9) Vitamin D deficiency Medications: Reviewed predniSONE (DELTASONE) 20 mg tablet^Take 60 mg by mouth once daily.^Disp: ^Rfl: cholecalciferol, Vitamin D3, (VITAMIN D3) 1,250 mcg (50,000 unit) cap capsule^Take 1 capsule by mouth one time a week.^Disp: 12 capsule^Rfl: 0 fenofibrate nanocrystallized (TRICOR) 48 mg tablet^Take 1 tablet by mouth once daily.^Disp: 90 tablet^Rfl: 1 omeprazole (PRILOSEC) 20 mg capsule^Take 1 capsule by mouth daily before breakfast. 1/2 hr before meal.^Disp: 90 capsule^Rfl: 1 atorvastatin (LIPITOR) 80 mg tablet^Take 1 tablet by mouth once daily.^Disp: 90 tablet^Rfl: 1 docusate sodium (COLACE) 100 mg capsule^Take 100 mg by mouth twice daily.^Disp: ^Rfl: OLANZapine (ZYPREXA) 10 mg tablet^Take 2 tablets by mouth daily at bedtime.^Disp: ^Rfl: lamoTRIgine (LAMICTAL) 200 mg tablet^Take 300 mg by mouth once daily. ^Disp: ^Rfl: clonazePAM (KLONOPIN) 1 mg tablet^Take 1 mg by mouth at bedtime as needed.^Disp: ^Rfl: zolpidem (AMBIEN) 10 mg tab^Take by mouth at bedtime as needed.^Disp: ^Rfl: venlafaxine XR (EFFEXOR XR) 150 mg tr24^Take by mouth once daily.^Disp: ^Rfl: DULoxetine (CYMBALTA) 60 mg capsule^Take 60 mg by mouth twice daily.^Disp: ^Rfl: FERROUS SULFATE (HIGH POTENCY IRON ORAL)^Take 1 tablet by mouth once daily.^Disp: ^Rfl: cyanocobalamin (VITAMIN B-12) 500 mcg tablet^Take 2 tablets by mouth once daily.^Disp: ^Rfl: CARBATROL 300 MG 12 HR CAP^Take two capsules two(2) times daily. ^Disp: ^Rfl: 0 gabapentin (NEURONTIN) 300 mg capsule^Take 1 capsule by mouth daily at bedtime for 90 days.^Disp: 30 capsule^Rfl: 2 ALLERGIES Allergen Reactions Biaxin [Clarithromy* Intolerance Depakote [Divalproe* Intolerance Ibuprofen Intolerance advil Latex Unknown Prozac [Fluoxetine * Intolerance Spectazole [Econazo* Intolerance Wellbutrin [Bupropi* Intolerance CAUSES [employer] [employer] [facility] HISTORY Problem Relation Age of Onset Cancer Father prostate, skin cancer Hypertension Father Coronary Artery Disease Mother stroke and mi Diabetes Mother Heart Sister [place] age 50s Mental illness Brother suicide Mental illness Brother Heart Maternal Grandmother Diabetes Maternal Grandmother Breast Cancer Paternal Grandmother Mental illness Brother hunting accident PAST SURGICAL HISTORY Procedure Laterality Date APPENDECTOMY remotely COLONOSCOPY FLX DX W/COLLJ SPEC WHEN PFRMD 06/15/2014 Colonoscopy COLONOSCOPY SCREENING Bilateral 08/22/2022 ESOPHAGOGASTRODUODENOSCOPY TRANSORAL DIAGNOSTIC 06/15/2014 EGD INCISION & DRAINAGE ABSCESS SIMPLE/SINGLE both sides of face. KNEE SURGERY HX arthroscopic surgery for cartilage removal. unsure which knee L'SCOPE CHOLECYSTECTOMY 12/2021 SOCIAL HISTORY Lives alone. Tobacco Use: Low Risk (05/19/2024) Patient History Smoking Tobacco Use: Never Smokeless Tobacco Use: Never Passive Exposure: Not on file PHYSICAL EXAM 07/06/24 1240 BP: 134/82 Pulse: 79 Neurological Exam Cognitive and Language: Alert and answered questions appropriately. Language was fluent. Followed simple and complex commands. Cranial Nerves: Visual workman were full tested binocularly to finger counting in all 4 quadrants with no visual extinction. Pupils were equal and both reactive to light. Extraocular movements were full with no diplopia or nystagmus. Facial sensation was normal to light touch in V1 to V3. Facial strength was symmetric. Normal hearing grossly bilaterally. Palatal raise was symmetric. Shoulder shrug was symmetric. Tongue protrusion was symmetric with no fasciculations. Right Left Shoulder Abduction: 5 5 Elbow Extension 5 5 Elbow Flexion 5 5 Wrist Extension 5 5 Finger Extension 5 5 Finger Abduction 5 5 Right Left Hip Flexion 5 5 Knee Extension 5 5 Knee Flexion 5 5 Dorsiflexion 5 5 Plantar Flexion 5 5 Rest tremor: absent Tone: Normal in all four limbs Reflexes: Right Left Brachioradialis 2 2 Biceps 2 2 Patella 2 2 Ankle 1 1 Sensory: Decreased sensation to temperature up to the mid tib-fib bilaterally. Slight decrease in vibration to the great toe and ankle bilaterally. Send poor proprioception on Romberg testing. Coordination: Normal finger to nose intact. Negative romberg. Normal gait. Labs: Lab Results Component Value Date WBC 3.65 (L) 03/03/2024 HCT 34.8 (L) 03/03/2024 MCV 109.1 (H) 03/03/2024 PLT 200 03/03/2024 Lab Results Component Value Date HBA1C 5.2 03/03/2024 HBA1C 5.6 12/05/2023 HBA1C 5.4 05/03/2023 HBA1C 5.5 03/28/2021 HBA1C 5.6 09/19/2020 HBA1C 5.5 04/07/2020 Cholesterol, Total Date Value Ref Range Status 03/03/2024 164 <200 mg/dL Final Comment: <200 mg/dL, Desirable 200-239 mg/dL, Borderline high >239 mg/dL, High HDL Cholesterol Date Value Ref Range Status 03/03/2024 43 >39 mg/dL Final Comment: 40-59 mg/dL, Acceptable >59 mg/dL, High: Negative risk factor for coronary heart disease <40 mg/dL, Low: Positive risk factor for coronary heart disease LDL Cholesterol Date Value Ref Range Status 03/03/2024 97 <100 mg/dL Final Comment: <100 mg/dL, Optimal 100-129 mg/dL, Near optimal/above optimal 130-159 mg/dL, Borderline high 160-189 mg/dL, High >189 mg/dL, Very high Secondary prevention optimal LDL Cholesterol levels are recommended to be < 70 mg/dL Triglyceride Date Value Ref Range Status 03/03/2024 119 <150 mg/dL Final Comment: <150 mg/dL, Normal 150-199 mg/dL, Borderline high 200-499 mg/dL, High >499 mg/dL, Very high Radiology: MRI Head/Brain - Last 2 Impressions MRI BRAIN WO IVCON Exam End: 02/06/2024 3:24 PM (Final result) Impression: IMPRESSION: No acute intracranial pathology. Innumerable chronic microhemorrhages, of uncertain etiology.... , MRI Lumbar Spine - Last 2 Impressions No resulted procedures found. , and MRI Spine - Last 2 Impressions No resulted procedures found. This note was dictated using [employer] speech recognition software and may contain some errors that were a result of the program not accurately transcribing what was dictated, despite efforts to make corrections. Note that unless urgent, test and MRI results will be discussed at next follow- up visit. PROMIS (Patient-Reported Outcomes Measurement Information System) is a set of person-centered measures that evaluates and monitors physical, social, and emotional health. It can be used with the general population and with individuals living with chronic conditions. PROMIS 10: PHYSICAL AND MENTAL HEALTH: 04/24/2024 PHQ-9 PHQ-2 Score 3 PHQ-9 Score 15 Medical Decision Making: Medical Decision Making Level: 1 - N/A I spent a total of 45 minutes on the date of the service which included preparing to see the patient, [id number] patient care, completing clinical documentation, obtaining and/or reviewing separately obtained history, performing a medically appropriate examination, counseling and educating the pat ient/family/caregiver, and ordering medications, tests, or procedures. * Chandler Hylton LPN - 07/06/2024 12:39 PM EDT [facility]25 NoteHNO ID: [id number] Author: CHANDLER HYLTON LPN Service: ? Author Type: LICENSED NURSE Type: Progress Notes Filed: 07/06/2024 13:48 Note Text:[facility]03-10-2025 Telephone encounter Note* Telephone Encounter - Lou aKtz LPN - 07/05/2024 12:42 PM EDT Please call patient to schedule in a new 60 minute spot with Dianelys. Lou Katz LPN [facility]03-10-2025 Miscellaneous Notes* Telephone Encounter - Lou Katz LPN - 07/05/2024 12:42 PM EDT Please call patient to schedule in a new 60 minute spot with Dianelys. Lou Katz LPN * Telephone Encounter - Kel Joya Jr., MD - 07/05/2024 10:12 AM EDT Please assist pt in scheduling with neur IZA for sooner appt. However, if symptoms acute and if pain severe, may need evaluation in ER - symptoms could be due to various causes including spine dz, DVT... may be best that pt have immediate evaluation. Kel Joya MD documented in [facility]03-[facility] Telephone encounter Note * Telephone Encounter - Kel Joya Jr., MD - 07/05/2024 10:12 AM EDT Please assist pt in scheduling with neur IZA for sooner appt. However, if symptoms acute and if pain severe, may need evaluation in ER - symptoms could be due to various causes including spine dz, DVT... may be best that pt have immediate evaluation. Kel Joya MD [facility] Work Phone: [phone]) 733-491102-25-2025 NoteHNO ID: [id number] Author: KAVON MORENO PTA Service: ? Author Type: Guest Services Representative Type: Progress Notes Filed: 06/22/2024 18:25 Note Text: Episode Visit Count: 6 Therapist That Will Accept/Oversee The Plan Of Care: Lynn Jeff Start of Care Date: 05/18/24 Onset Date: 03/19/24 (longer time, but more symptomatic recently) Plan of Care Certification Date: 05/18/24 Next Certification Due Date: 08/16/24 Patient Identified by Name and Date of : Yes REHABILITATION AND SPORTS THERAPY PHYSICAL THERAPY TREATMENT NOTE ASSESSMENT: Jimi Soto tolerated the session with decreased symptoms and expected muscle soreness. He demonstrated difficulty with carry over with HEP and improvements in lumbar and thoracic posture in standing . The patient will continue to benefit from ongoing skilled physical therapy to progress toward set goals. PLAN FOR NEXT VISIT: continue to address nutral posture of all spinal segments, strengthen bilateral hip extensors and lumbar and thoracic extensors in prone SUBJECTIVE: patient reports more frequent loss of balance , patient also reports difficulty with ability to perform HEP due to limited space in apartment Pain: Pain Pain Level: 0 (5/10 radicular pain left le with prolonged standing) Pain Location: Leg - Left, Leg - Right Description: Radiating Frequency: Intermittent, Standing, Walking Post Treatment Pain Post Treatment Pain Level: 0 OBJECTIVE MEASURES WITH LEVEL OF FUNCTION: TREATMENT: Therapeutic Exercise: 1: nu step 2 minutes increased radicular symptoms in left le 2: supine leg press right /left /bilaterall 10 x 5 second hold each 3: hooklying bilatearl arm lengthener with abdominal brace to decreased lumbar lordosis 10 x 4: prone lying 1 min 5: pone head and chest lift 10 x 6: prone hip extension , right/left 10 x each then prone hip extension right with left arm raise 7: standing back to wall pressing into wall 5 second hold x 10 Skilled Intervention: Patient was educated in proper exercise technique and purpose for exercises. Skilled judgment was used in selection of appropriate interventions. Billing Therapeutic Exercise Treatment Minutes: 40 Skilled Treatment Time Minutes (timed and untimed codes): 40 Total Session Time (minutes): 40 Session Start Time : 1515 Session Stop Time : 1555 [facility] of Present illness Narrative* Kavon Moreno PTA - 06/22/2024 6:23 PM EST Episode Visit Count: 6 Therapist That Will Accept/Oversee The Plan Of Care: Lynn Jeff Start of Care Date: 05/18/24 Onset Date: 03/19/24 (longer time, but more symptomatic recently) Plan of Care Certification Date: 05/18/24 Next Certification Due Date: 08/16/24 Patient Identified by Name and Date of : Yes REHABILITATION AND SPORTS THERAPY PHYSICAL THERAPY TREATMENT NOTE ASSESSMENT: Jimi Soto tolerated the session with decreased symptoms and expected muscle soreness.He demonstrated difficulty with carry over with HEP and improvements in lumbar and thoracic posturein standing . The patient will continue to benefit from ongoing skilled physical therapy to progress toward set goals. PLAN FOR NEXT VISIT: continue to address nutral posture of all spinal segments, strengthen bilateral hip extensors and lumbar and thoracic extensors in prone SUBJECTIVE: patient reports more frequent loss of balance , patient also reports difficulty with ability to perform HEP due to limited space in apartment Pain: Pain Pain Level: 0 (5/10 radicular pain left le with prolonged standing) Pain Location: Leg - Left, Leg - Right Description: Radiating Frequency: Intermittent, Standing, Walking Post Treatment Pain Post Treatment Pain Level: 0 OBJECTIVE MEASURES WITH LEVEL OF FUNCTION: TREATMENT: Therapeutic Exercise: 1: nu step 2 minutes increased radicular symptoms in left le 2: supine leg press right /left /bilaterall 10 x 5 second hold each 3: hooklying bilatearl arm lengthener with abdominal brace to decreased lumbar lordosis 10 x 4: prone lying 1 min 5: pone head and chest lift 10 x 6: prone hip extension , right/left 10 x each then prone hip extension right with left arm raise 7: standing back to wall pressing into wall 5 second hold x 10 Skilled Intervention: Patient was educated in proper exercise technique and purpose for exercises. Skilled judgment was used in selection of appropriate interventions. Billing Therapeutic Exercise Treatment Minutes: 40 Skilled Treatment Time Minutes (timed and untimed codes): 40 Total Session Time (minutes): 40 Session Start Time : 1514 Session Stop Time : 1555 Kavon Moreno PTA documented [facility] encounterK[facility]02-[facility]25 NoteHNO ID: [id number] Author: LENORA MORAN CCC-PLATE GRAINER APPRENTICE Service: ? Author Type: Speech Language Pathologist Type: Progress Notes Filed: 06/22/2024 14:26 Note Text: Summary: SPEECH THERAPY DISCHARGE Episode Visit Count: 5 Therapist That Will Accept/Oversee The Plan Of Care: LUISA Start of Care Date: 05/18/24 Onset Date: 04/30/24 Plan of Care Certification Date: 05/18/24 Next Certification Due Date: 07/15/24 Patient Identified by Name and Date of : Yes REHABILITATION AND SPORTS THERAPY SPEECH THERAPY DISCONTINUANCE OF CARE PLAN OF CARE UPDATE: Impression: Functional communication without limitations in: Speech, Voice, Fluency Communication deficits identified: Cognitive-Linguistic deficits Progress Toward Goals: Goal Met Functional gains: Increased ability to express basic ADL medical and social needs, Increased ability to recall vital ADL medical and social information, Increased use of compensatory strategies, Increase expressive language skills, Increased efficacy related to the independent use of the taught compensatory strategies, and Improving skill related to the implementation of the taught home exercise program Goals for Episode of Care Updated: 06/22/2024 Goals for Episode of Care: created on 05/18/2024 through 07/15/24 EXPRESSIVE LANGUAGE GOALS -Demonstrate the use of taught strategies for effective WORD FINDING AND VERBAL EXPRESSION during conversations 95% of the time with minimal cues. -All goals to target the patient's overall ability to facilitate functional communication of ADL medical / social needs. COGNITIVE GOALS -Improve categorical naming tasks at a concrete and abstract level with 100% accuracy given minimal assist. -Improve money and time management tasks with 100% accuracy given minimal assist. -Complete visual reasoning/organization tasks with 100% accuracy given moderate , minimal assist. -Improve short term/prospective memory to 100% accuracy with use of compensatory strategies with moderate , minimal assist/cues. -All goals to target the patient's overall ability to facilitate functional cognitive linguistic skills. Time Frame for Goals and Treatment : 07/15/24 RECOMMENDATION: Discontinue skilled speech therapy services due to Pt has reached maximum rehabilitative potential at this time and Pt demonstrates adequate return of knowledge of recommended continued home exercises and skill sets for daily maintenance. Therapy Program Summary: Patient was seen 5 times for 5 weeks and treatment included: establishing and training patient in compensatory strategies for cognition and expressive language . Recommendations: Continue with previously developed home program and functional maintenance strategies and Follow-up with referring physician given any significant change in current functional status. and The speech-language pathology department remains available for further consultation as deemed necessary and/or warranted by the referring physician. PLATE GRAINER APPRENTICE Recommendations: Discontinue Speech Therapy Results and Recommendations Discussed With: Patient Planned Interventions, Frequency, and Duration: Discharge ST this date with goals met Planned Treatment Interventions: Patient / Caregiver Education/ Training, Cognitive-Linguistic Training (90897, [id number], [id number]), Expressive Language Training ([id number], [id number]) Current Frequency: 1x/week Duration: 8 weeks PLAN FOR NEXT VISIT: n/a SUBJECTIVE: Past Relevant Medical Conditions: Anxiety, Cerebral Vascular Accident, Depression, Kidney Problems Subjective: Patient reports he is feeling more normal and able to manage his daily needs without difficulty. PROMIS Scales 06/22/2024 06/08/2024 05/18/2024 Speech Communication Score 50 90 62.5 Proxy-reported T-scores: mean of general population = 50. 5 points is clinically meaningfully difference Percentiles provide an indication of how the patient's score ranks in relation to the general population. Higher percentile rankings indicate better function/quality of life. 50th percentile is the average of the general population and indicates half of respondents had a worse score. OBJECTIVE MEASURES WITH LEVEL OF FUNCTION: Cognition Cognitive Status: Within Functional Limits For Current Session Except Cognitive Deficits: Attention Deficit, Memory Deficits, Executive Function Deficit Attention Deficit: Alternating, Divided Memory Deficits: Short Term Short Term Memory Comments: 86% with independent use of visualization and association for word encoding and retreival Executive Function Deficits: Organization, Divergent Naming, Problem Solving Problem Solving Comments: Verbal problem solving for medication management, time management, and home scenarios i (more content not included)...[facility]02-[facility] History of Present illness Narrative* Lenora Moran, CCC-PLATE GRAINER APPRENTICE - 06/22/2024 1:32 PM ESTSummary: SPEECH THERAPY DISCHARGE Images from the original note were not included. Episode Visit Count: 5 Therapist That Will Accept/Oversee The Plan Of Care: LUISA Start of Care Date: 05/18/24 Onset Date: 04/30/24 Plan of Care Certification Date: 05/18/24 Next Certification Due Date: 07/15/24 Patient Identified by Name and Date of : Yes REHABILITATION AND SPORTS THERAPY SPEECH THERAPY DISCONTINUANCE OF CARE PLAN OF CARE UPDATE: Impression: Functional communication without limitations in: Speech, Voice, Fluency Communication deficits identified: Cognitive-Linguistic deficits Progress Toward Goals: Goal Met Functional gains: Increased ability to express basic ADL medical and social needs, Increased ability to recall vital ADL medical and social information, Increased use of compensatory strategies, Increase expressive language skills, Increased efficacy related to the independent use of the taught compensatory strategies, and Improving skill related to the implementation of the taught home exercise program Goals for Episode of Care Updated: 06/22/2024 Goals for Episode of Care: created on 05/18/2024 through 07/15/24 EXPRESSIVE LANGUAGE GOALS -Demonstrate the use of taught strategies for effective WORD FINDING AND VERBAL EXPRESSION during conversations 95% of the time with minimal cues. -All goals to target the patient's overall ability to facilitate functional communication of ADL medical / social needs. COGNITIVE GOALS -Improve categorical naming tasks at a concrete and abstract level with 100% accuracy given minimalassist. -Improve money and time management tasks with 100% accuracy given minimal assist. -Complete visual reasoning/organization tasks with 100% accuracy given moderate , minimal assist. -Improve short term/prospective memory to 100% accuracy with use of compensatory strategies with moderate , minimal assist/cues. -All goals to target the patient's overall ability to facilitate functional cognitive linguistic skills. Time Frame for Goals and Treatment : 07/15/24 RECOMMENDATION: Discontinue skilled speech therapy services due to Pt has reached maximum rehabilitative potential at this time and Pt demonstrates adequate return of knowledge of recommended continued home exercises and skill sets for daily maintenance. Therapy Program Summary: Patient was seen 5 times for 5 weeks and treatment included: establishing and training patient in compensatory strategies for cognitionand expressive language . Recommendations: Continue with previously developed home program and functional maintenance strategies and Follow-up with referring physician given any significant change incurrent functional status. and The speech-language pathology department remains available for further consultation as deemed necessary and/or warranted by the referring physician. PLATE GRAINER APPRENTICE Recommendations: Discontinue Speech Therapy Results and Recommendations Discussed With: Patient Planned Interventions, Frequency, and Duration: Discharge ST this date with goals met Planned Treatment Interventions: Patient / Caregiver Education/ Training, Cognitive-Linguistic Training (94083, [id number], [id number]), Expressive Language Training ([id number], [id number]) Current Frequency: 1x/week Duration: 8 weeks PLAN FOR NEXT VISIT: n/a SUBJECTIVE: Past Relevant Medical Conditions: Anxiety, Cerebral Vascular Accident, Depression, Kidney Problems Subjective: Patient reports he is feeling more normal and able to manage his daily needs without difficulty. PROMIS Scales 06/22/2024 06/08/2024 05/18/2024 Speech Communication Score 50 90 62.5 Proxy-reported T-scores: mean of general population = 50. 5 points is clinically meaningfully difference Percentiles provide an indication of how the patient's score ranks in relation to the general population. Higher percentile rankings indicate better function/quality of life. 50th percentile is the average of the general population and indicates half of respondents had a worse score. OBJECTIVE MEASURES WITH LEVEL OF FUNCTION: Cognition Cognitive Status: Within Functional Limits For Current Session Except Cognitive Deficits: Attention Deficit, Memory Deficits, Executive Function Deficit Attention Deficit: Alternating, Divided Memory Deficits: Short Term Short Term Memory Comments: 86% with independent use of visualization and association for word encoding and retreival Executive Function Deficits: Organization, Divergent Naming, Problem Solving Problem Solving Comments: Verbal problem solving for medication management, time management, and home scenarios independenty. Reasoning/Inferences Comments: Completion of functional calendar organization and grocery list taskto promote problem solving and reasoning 87% IND, which increased to 100% with minimal cues. Divergent Naming Comments : 83% IND, 100% w/ min semantic and initial grapheme cues Speech/Voice/Language Speech Production: Within Functional Limits Expressive and Receptive Language: Within Functional Limits Except Verbal Expression Deficits: Divergent Naming, Expressing Complex Information Divergent Naming - (%): 83 % (100% w/ min semantic and initial grapheme cues) Divergent Naming Cues Provided: Without Cues Expressing Complex Information Cues Provided: Minimal Language Impairments Observed: Anomia, Pauses/Hesitations TREATMENT: Speech/Language Therapy ([id number]): Skilled Intervention: Educated and instructed patient on compensatory strategies for word-finding, daily problem solving scenarios , sequencing, and thought organization Educated and instructed patient on memory recall strategies such as focused attention, verbal repetition, active repetition, visualization, association, chunking, graphic skills, and designated routine. Provided multi-modality cues in problem solving tasks , attention tasks, executive functioning tasks, auditory / verbal memory tasks, simple reasoning, complex reasoning, sequencing, and visual reasoning / organization. Current Home Program: Written information re: compensatory strategies for memory, organization, andword finding Billing: Speech Treatment ([id number]) Total time / Length of visit: 59 minutes Session Start Time : 1330 Session Stop Time : 1422 STEPHANIE Ramirez documented in this encounterK[facility]25 NoteHNO ID: [id number] Author: LENORA MORAN CCC-SLP Service: ? Author Type: Speech Language Pathologist Type: Progress Notes Filed: 06/15/2024 14:33 Note Text: Summary: SPEECH THERAPY PROGRESS REPORT Episode Visit Count: 4 Therapist That Will Accept/Oversee The Plan Of Care: LUISA Start of Care Date: 05/18/24 Onset Date: 04/30/24 Plan of Care Certification Date: 05/18/24 Next Certification Due Date: 07/15/24 Patient Identified by Name and Date of : Yes REHABILITATION AND SPORTS THERAPY SPEECH THERAPY PROGRESS REPORT PLAN OF CARE UPDATE: Impression: Functional communication without limitations in: Speech, Voice, Fluency Communication deficits identified: Cognitive-Linguistic deficits Progress Toward Goals: Progressing as expected Functional gains: Increased ability to recall vital ADL medical and social information, Increased use of compensatory strategies, Increase expressive language skills, and Increased efficacy related to the independent use of the taught compensatory strategies Goals for Episode of Care Updated: 06/15/2024 Goals for Episode of Care: created on 05/18/2024 through 07/15/24 EXPRESSIVE LANGUAGE GOALS -Demonstrate the use of taught strategies for effective WORD FINDING AND VERBAL EXPRESSION during conversations 95% of the time with minimal cues. -All goals to target the patient's overall ability to facilitate functional communication of ADL medical / social needs. COGNITIVE GOALS -Improve categorical naming tasks at a concrete and abstract level with 100% accuracy given minimal assist. -Improve money and time management tasks with 100% accuracy given minimal assist. -Complete visual reasoning/organization tasks with 100% accuracy given moderate , minimal assist. -Improve short term/prospective memory to 100% accuracy with use of compensatory strategies with moderate , minimal assist/cues. -All goals to target the patient's overall ability to facilitate functional cognitive linguistic skills. Time Frame for Goals and Treatment : 07/15/24 RECOMMENDATION: Planned Interventions, Frequency, and Duration: Follow up for one visit(s) per week for four weeks for Individual skilled ST services Patient / Caregiver Education/ Training Goals/ Plan Reviewed by Patient and Family Patient / Family express agreement with goals, Patient and/or caregiver demonstrate a solid understanding of results, recommendations, goals and plan of care. Patient: agreed with aforementioned., and POC. PLATE GRAINER APPRENTICE Recommendations: Outpatient Speech Therapy Results and Recommendations Discussed With: Patient Planned Interventions, Frequency, and Duration: Planned Treatment Interventions: Patient / Caregiver Education/ Training, Cognitive-Linguistic Training (22561, [id number], [id number]), Expressive Language Training (39240, 05043) Current Frequency: 1x/week Duration: 8 weeks PLAN FOR NEXT VISIT: Written education for memory and attention strategies and support activities SUBJECTIVE: Past Relevant Medical Conditions: Anxiety, Cerebral Vascular Accident, Depression, Kidney Problems Subjective: Patient stated, Im just fatigued today. PROMIS Scales 06/08/2024 05/18/2024 04/24/2024 Speech Communication Score 90 62.5 Cognitve Function T-Score 34 (moderate dysfunction) Proxy-reported T-scores: mean of general population = 50. 5 points is clinically meaningfully difference Percentiles provide an indication of how the patient's score ranks in relation to the general population. Higher percentile rankings indicate better function/quality of life. 50th percentile is the average of the general population and indicates half of respondents had a worse score. OBJECTIVE MEASURES WITH LEVEL OF FUNCTION: Cognition Cognitive Status: Within Functional Limits For Current Session Except Cognitive Deficits: Attention Deficit, Memory Deficits, Executive Function Deficit Attention Deficit: Alternating, Divided Memory Deficits: Short Term Short Term Memory Comments: 80% with independent use of visualization and association for word encoding and retreival. Divergent Naming Comments : 75% IND, 100% w/ min-moderate semantic and initial grapheme cues Speech/Voice/Language Speech Production: Within Functional Limits Expressive and Receptive Language: Within Functional Limits Except Verbal Expression Deficits: Convergent Naming, Divergent Naming, Expressing Complex Information, Conversational Speech Divergent Naming - (%): 75 % (75% IND, 100% w/ min-moderate semantic and initial grapheme cues) Language Impairments Observed: Anomia, Pauses/Hesitations TREATMENT: Speech/Language Therapy (22306): Skilled Intervention: Provided multi-modality cues in problem solving tasks , attention tasks, execu (more content not included)...[facility]02-18-2025 History of Present illness Narrative* Lenora Moran, [facility]3]-PLATE GRAINER APPRENTICE - 06/15/2024 1:33 PM ESTSummary: SPEECH THERAPY PROGRESS REPORT Images from the original note were not included. Episode Visit Count: 4 Therapist That Will Accept/Oversee The Plan Of Care: LUISA Start of Care Date: 05/18/24 Onset Date: 04/30/24 Plan of Care Certification Date: 05/18/24 Next Certification Due Date: 07/15/24 Patient Identified by Name and Date of : Yes REHABILITATION AND SPORTS THERAPY SPEECH THERAPY PROGRESS REPORT PLAN OF CARE UPDATE: Impression: Functional communication without limitations in: Speech, Voice, Fluency Communication deficits identified: Cognitive-Linguistic deficits Progress Toward Goals: Progressing as expected Functional gains: Increased ability to recall vital ADL medical and social information, Increased use of compensatory strategies, Increase expressive language skills, and Increased efficacy related to the independent use of the taught compensatory strategies Goals for Episode of Care Updated: 06/15/2024 Goals for Episode of Care: created on 05/18/2024 through 07/15/24 EXPRESSIVE LANGUAGE GOALS -Demonstrate the use of taught strategies for effective WORD FINDING AND VERBAL EXPRESSION during conversations 95% of the time with minimal cues. -All goals to target the patient's overall ability to facilitate functional communication of ADL medical / social needs. COGNITIVE GOALS -Improve categorical naming tasks at a concrete and abstract level with 100% accuracy given minimalassist. -Improve money and time management tasks with 100% accuracy given minimal assist. -Complete visual reasoning/organization tasks with 100% accuracy given moderate , minimal assist. -Improve short term/prospective memory to 100% accuracy with use of compensatory strategies with moderate , minimal assist/cues. -All goals to target the patient's overall ability to facilitate functional cognitive linguistic skills. Time Frame for Goals and Treatment : 07/15/24 RECOMMENDATION: Planned Interventions, Frequency, and Duration: Follow up for one visit(s) per week for four weeks for Individual skilled ST services Patient / Caregiver Education/ Training Goals/ Plan Reviewed by Patient and Family Patient / Family express agreement with goals, Patient and/or caregiver demonstrate a solid understanding of results, recommendations, goals and plan of care. Patient: agreed with aforementioned., and POC. PLATE GRAINER APPRENTICE Recommendations: Outpatient Speech Therapy Results and Recommendations Discussed With: Patient Planned Interventions, Frequency, and Duration: Planned Treatment Interventions: Patient / Caregiver Education/ Training, Cognitive-Linguistic Training ([id number], [id number], 27560), Expressive Language Training (95843, 80160) Current Frequency: 1x/week Duration: 8 weeks PLAN FOR NEXT VISIT: Written education for memory and attention strategies and support activities SUBJECTIVE: Past Relevant Medical Conditions: Anxiety, Cerebral Vascular Accident, Depression, Kidney Problems Subjective: Patient stated, Im just fatigued today. PROMIS Scales 06/08/2024 05/18/2024 04/24/2024 Speech Communication Score 90 62.5 Cognitve Function T-Score 34 (moderate dysfunction) Proxy-reported T-scores: mean of general population = 50. 5 points is clinically meaningfully difference Percentiles provide an indication of how the patient's score ranks in relation to the general population. Higher percentile rankings indicate better function/quality of life. 50th percentile is the average of the general population and indicates half of respondents had a worse score. OBJECTIVE MEASURES WITH LEVEL OF FUNCTION: Cognition Cognitive Status: Within Functional Limits For Current Session Except Cognitive Deficits: Attention Deficit, Memory Deficits, Executive Function Deficit Attention Deficit: Alternating, Divided Memory Deficits: Short Term Short Term Memory Comments: 80% with independent use of visualization and association for word encoding and retreival. Divergent Naming Comments : 75% IND, 100% w/ min-moderate semantic and initial grapheme cues Speech/Voice/Language Speech Production: Within Functional Limits Expressive and Receptive Language: Within Functional Limits Except Verbal Expression Deficits: Convergent Naming, Divergent Naming, Expressing Complex Information, Conversational Speech Divergent Naming - (%): 75 % (75% IND, 100% w/ min-moderate semantic and initial grapheme cues) Language Impairments Observed: Anomia, Pauses/Hesitations TREATMENT: Speech/Language Therapy ([id number]): Skilled Intervention: Provided multi-modality cues in problem solving tasks , attention tasks, executive functioning tasks, auditory / verbal memory tasks, simple reasoning, complex reasoning, sequencing, visual reasoning / organization, and word finding. Assigned Home Exercise Program: Current Home Program: Written information re: compensatory strategies for memory and word finding Current Home Program: Written information re: compensatory strategies for memory and word finding Billing: Speech Treatment ([id number]) Total time / Length of visit: 59 minutes Session Start Time : 1330 Session Stop Time : 142 Lenora Moran CCC-PLATE GRAINER APPRENTICE documented in this encounterK[facility] NoteHNO ID: [id number] Author: SHAJI YOUNGER PTA Service: ? Author Type: Guest Services Representative Type: Progress Notes Filed: 06/15/2024 11:47 Note Text: Episode Visit Count: 5 Therapist That Will Accept/Oversee The Plan Of Care: Lynn Jeff Start of Care Date: 05/18/24 Onset Date: 03/19/24 (longer time, but more symptomatic recently) Plan of Care Certification Date: 05/18/24 Next Certification Due Date: 08/16/24 Patient Identified by Name and Date of : Yes REHABILITATION AND SPORTS THERAPY PHYSICAL THERAPY TREATMENT NOTE ASSESSMENT: Jimi Soto tolerated the session with no issues. He demonstrated improvements in static standing balance and lumbar pain. The patient will continue to benefit from ongoing skilled physical therapy to progress toward set goals. PLAN FOR NEXT VISIT: continue to standing balance and LE ROM; adress core stabilty SUBJECTIVE: Patient states that he continues to have new symptoms and continues to have numbness/ tingleing and pain in his legs intermittmently Pain: Pain Pain Level: 0 Post Treatment Pain Post Treatment Pain Level: 0 OBJECTIVE MEASURES WITH LEVEL OF FUNCTION: TREATMENT: Therapeutic Exercise: 1: supine manual hamstring and calf stretch 2 x 30 seconds ea 2: bridges x10 3: shuttle BLE 6 bands 10 x 2; SL 4 bands x10 4: shuttle heel raises 6 bands x20 Skilled Intervention: Patient was educated in proper exercise technique and purpose for exercises. Skilled judgment was used in selection of appropriate interventions. Provided written instruction for home exercise program to facilitate proper performance and compliance. Correct performance of therapeutic exercises was facilitated with verbal and visual cuing. Neuromuscular Re-Education: 1: *lateral stepping 2: retro walk 3: tandem stance 2 x 30 seconds;; standing nbos 2 x 30 seconds 4: retro step with forwrd arm swing same side 10 x 2 right /left Skilled Intervention: Skilled judgment used to assess appropriate program for balance and coordination activity. Reviewed and educated patient on additions/changes for home program as noted above with an (*). Correct performance of home program was facilitated with verbal and visual cueing. Billing Therapeutic Exercise Treatment Minutes: 36 Neuromuscular Re-Education Treatment Minutes: 12 Skilled Treatment Time Minutes (timed and untimed codes): 48 Total Session Time (minutes): 48 Session Start Time : 1055 Session Stop Time : 1143 Shaji Younger [facility]02-18-2025 History of Present illness Narrative* Shaji Younger, [facility] - 06/15/2024 11:45 AM EST Episode Visit Count: 5 Therapist That Will Accept/Oversee The Plan Of Care: Lynn Jeff Start of Care Date: 05/18/24 Onset Date: 03/19/24 (longer time, but more symptomatic recently) Plan of Care Certification Date: 05/18/24 Next Certification Due Date: 08/16/24 Patient Identified by Name and Date of : Yes REHABILITATION AND SPORTS THERAPY PHYSICAL THERAPY TREATMENT NOTE ASSESSMENT: Jimi Soto tolerated the session with no issues. He demonstrated improvements in static standing balance and lumbar pain. The patient will continue to benefit from ongoing skilled physical therapy to progress toward set goals. PLAN FOR NEXT VISIT: continue to standing balance and LE ROM; adress core stabilty SUBJECTIVE: Patient states that he continues to have new symptoms and continues to have numbness/ tingleing and pain in his legs intermittmently Pain: Pain Pain Level: 0 Post Treatment Pain Post Treatment Pain Level: 0 OBJECTIVE MEASURES WITH LEVEL OF FUNCTION: TREATMENT: Therapeutic Exercise: 1: supine manual hamstring and calf stretch 2 x 30 seconds ea 2: bridges x10 3: shuttle BLE 6 bands 10 x 2; SL 4 bands x10 4: shuttle heel raises 6 bands x20 Skilled Intervention: Patient was educated in proper exercise technique and purpose for exercises. Skilled judgment was used in selection of appropriate interventions. Provided written instruction for home exercise program to facilitate proper performance and compliance. Correct performance of therapeutic exercises was facilitated with verbal and visual cuing. Neuromuscular Re-Education: 1: *lateral stepping 2: retro walk 3: tandem stance 2 x 30 seconds;; standing nbos 2 x 30 seconds 4: retro step with forwrd arm swing same side 10 x 2 right /left Skilled Intervention: Skilled judgment used to assess appropriate program for balance and coordination activity. Reviewed and educated patient on additions/changes for home program as noted above with an (*). Correct performance of home program was facilitated with verbal and visual cueing. Billing Therapeutic Exercise Treatment Minutes: 36 Neuromuscular Re-Education Treatment Minutes: 12 Skilled Treatment Time Minutes (timed and untimed codes): 48 Total Session Time (minutes): 48 Session Start Time : 1055 Session Stop Time : 1143 Shaji Younger PTA documented in this encounterK[facility] Telephone encounter Note * Telephone Encounter - Lou Katz LPN - 06/11/2024 3:39 PM EST Please contact patient to schedule EEG and then a follow up in a 60 minute spot with Dianelys Reynolds after. Lou Katz LPN [facility]02-14-2025 Miscellaneous Notes* Telephone Encounter - Lou Katz LPN - 06/11/2024 3:39 PM EST Please contact patient to schedule EEG and then a follow up in a 60 minute spot with Dianelys Reynolds after. Lou Katz LPN * Telephone Encounter - Kel Joya Jr., MD - 06/11/2024 1:09 PM EST Please schedule sooner follow up with neur IZA. In addition, will get EEG as we wait in person evaluation. Kel Joya MD documented in this encounterK[facility]02-14-[facility]25 Telephone encounter Note * Telephone Encounter - Kel Jyoa Jr., MD - 06/11/2024 1:09 PM EST Please schedule sooner follow up with neur IZA. In addition, will get EEG as we wait in person evaluation. Kel Joya MD [facility]02-11-[facility]25 NoteHNO ID: [id number] Author: LENORA MORAN CCC-TEJAS Service: ? 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 OBJECTIVE: MEASURES WITH LEVEL OF FUNCTION: Professional training and skilled instructions were provided as follows: Cognitive-linguistic skills Expressive language skills Cognition Cognitive Status: Within Functional Limits For Current Session Executive Function Deficits: Reasoning/Inferences, Organization Reasoning/Inferences Comments: Completion of functional calendar organization task to promote problem solving and reasoning for appointment and time management 80% IND, which increased to 100% with minimal cues. Speech/Voice/Language Expressing Complex Information - (%): 86 (Description of why 1 out of 5 items does not fit within abstract category) Expressing Complex Information Cues Provided: Minimal Language Impairments Observed: Anomia TREATMENT: Speech/Language Therapy ([id number]): Skilled Intervention: Educated and instructed patient on compensatory strategies for word-finding, daily problem solving scenarios , simple reasoning, and complex reasoning Provided multi-modality cues in executive functioning tasks and word finding. Assigned Home Exercise Program: Current Home Program: Written information re: compensatory strategies for memory and word finding Current Home Program: Written information re: compensatory strategies for memory and word finding Billing: Speech Treatment (43796) Total time / Length of visit: 57 minutes Session Start Time : 0 Session Stop Time : 1426 [facility] of Present illness Narrative* Lenora Moran CCC-PLATE GRAINER APPRENTICE - 06/08/2024 1:39 PM ESTSummary: SPEECH THERAPY Episode Visit Count: 3 Therapist That Will Accept/Oversee The Plan Of Care: LUISA Start of Care Date: 05/18/24 Onset Date: 04/30/24 Plan of Care Certification Date: 05/18/24 Next Certification Due Date: 06/17/24 Patient Identified by Name and Date of : Yes REHABILITATION AND SPORTS THERAPY SPEECH THERAPY TREATMENT NOTE IMPRESSION: Functional communication without limitations in: Speech, Voice, Fluency Communication deficits identified: Cognitive-Linguistic deficits 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 OBJECTIVE: MEASURES WITH LEVEL OF FUNCTION: Professional training and skilled instructions were provided as follows: Cognitive-linguistic skills Expressive language skills Cognition Cognitive Status: Within Functional Limits For Current Session Executive Function Deficits: Reasoning/Inferences, Organization Reasoning/Inferences Comments: Completion of functional calendar organization task to promote problem solving and reasoning for appointment and time management 80% IND, which increased to 100% with minimal cues. Speech/Voice/Language Expressing Complex Information - (%): 86 (Description of why 1 out of 5 items does not fit within abstract category) Expressing Complex Information Cues Provided: Minimal Language Impairments Observed: Anomia TREATMENT: Speech/Language Therapy (78665): Skilled Intervention: Educated and instructed patient on compensatory strategies for word-finding, daily problem solving scenarios , simple reasoning, and complex reasoning Provided multi-modality cues in executive functioning tasks and word finding. Assigned Home Exercise Program: Current Home Program: Written information re: compensatory strategies for memory and word finding Current Home Program: Written information re: compensatory strategies for memory and word finding Billing: Speech Treatment (24347) Total time / Length of visit: 57 minutes Session Start Time : 1330 Session Stop Time : 1427 STEPHANIE Ramirez documented in this encounterK[facility]02-11-[facility]25 NoteHNO ID: [id number] Author: KAVON MORENO PTA Service: ? Author Type: Guest Services Representative Type: Progress Notes Filed: 06/08/2024 11:59 Note Text: Episode Visit Count: 4 Therapist That Will Accept/Oversee The Plan Of Care: Lynn Jeff Start of Care Date: 05/18/24 Onset Date: 03/19/24 (longer time, but more symptomatic recently) Plan of Care Certification Date: 05/18/24 Next Certification Due Date: 08/16/24 Patient Identified by Name and Date of : Yes REHABILITATION AND SPORTS THERAPY PHYSICAL THERAPY TREATMENT NOTE ASSESSMENT: Jimi Soto tolerated the session with decreased symptoms and expected muscle soreness. He demonstrated difficulty with engaging abdominal muscles and improvements in reduction of radicular symptoms. The patient will continue to benefit from ongoing skilled physical therapy to progress toward set goals. PLAN FOR NEXT VISIT: assess use of lumbar extension to decrease radicular symptoms on bilateral, le , continue to stretch hamstrings , calfs, get abdominals to fire , then address standing dynamic balance SUBJECTIVE: patient reports having new symptom of pain radiating into both legs Pain: Pain Pain Level: 10 Pain Location: Leg - Right, Leg - Left Description: Radiating Frequency: Continuous, Walking, Standing Post Treatment Pain Post Treatment Pain Level: 2 Post Treatment Pain Location: Leg - Right, Leg - Left Post Treatment Pain Description: Aching OBJECTIVE MEASURES WITH LEVEL OF FUNCTION: TREATMENT: Therapeutic Exercise: 1: prone with overpressure with towel roll at L5 S1 1 min x 2 2: GRETCHEN 30 second x 4 3: PPU 10 x 2 4: supine manual hamstring and calf strech 30 second hold x 2 right /left 5: *standing lumbar extension 10 x 2 6: educated patient on anatomy of back and radicular symptoms 7: hooklying head raise 5 x 2 , 8: hooklying min crunch with legs on red thera ball 10 x Skilled Intervention: Patient was educated in proper exercise technique and purpose for exercises. Reviewed and educated patient on additions/changes for home exercise program as above (*). Skilled judgment was used in selection of appropriate interventions. Provided written instruction for home exercise program to facilitate proper performance and compliance. Therapeutic Activity: 1: log roll to left 5 x with supine to sit Skilled Intervention: verbal cues for technique Neuromuscular Re-Education: 1: 4 stage balance test 30 second hold each Skilled Intervention: progressing static balance Gait Trainin: gait 70 ; x 4 inbetween interventions for radiculopathy Skilled Intervention: verbal cues to increase stride length Billing Therapeutic Exercise Treatment Minutes: 30 Therapeutic Activity Treatment Minutes: 5 Neuromuscular Re-Education Treatment Minutes: 5 Gait Training Treatment Minutes: 5 Skilled Treatment Time Minutes (timed and untimed codes): 45 Total Session Time (minutes): 46 Session Start Time : 1052 Session Stop Time : 1138 [facility] History of Present illness Narrative* Kavon Moreno, FIELD FOREMAN - 06/08/2024 11:52 AM EST Episode Visit Count: 4 Therapist That Will Accept/Oversee The Plan Of Care: Lynn Jeff Start of Care Date: 05/18/24 Onset Date: 03/19/24 (longer time, but more symptomatic recently) Plan of Care Certification Date: 05/18/24 Next Certification Due Date: 08/16/24 Patient Identified by Name and Date of : Yes REHABILITATION AND SPORTS THERAPY PHYSICAL THERAPY TREATMENT NOTE ASSESSMENT: Jimi Soto tolerated the session with decreased symptoms and expected muscle soreness.He demonstrated difficulty with engaging abdominal muscles and improvements in reduction of radicular symptoms. The patient will continue to benefit from ongoing skilled physical therapy to progress toward set goals. PLAN FOR NEXT VISIT: assess use of lumbar extension to decrease radicular symptoms on bilateral, le , continue to stretch hamstrings , calfs, get abdominals to fire , then address standing dynamic balance SUBJECTIVE: patient reports having new symptom of pain radiating into both legs Pain: Pain Pain Level: 10 Pain Location: Leg - Right, Leg - Left Description: Radiating Frequency: Continuous, Walking, Standing Post Treatment Pain Post Treatment Pain Level: 2 Post Treatment Pain Location: Leg - Right, Leg - Left Post Treatment Pain Description: Aching OBJECTIVE MEASURES WITH LEVEL OF FUNCTION: TREATMENT: Therapeutic Exercise: 1: prone with overpressure with towel roll at L5 S1 1 min x 2 2: GRETCHEN 30 second x 4 3: PPU 10 x 2 4: supine manual hamstring and calf strech 30 second hold x 2 right /left 5: *standing lumbar extension 10 x 2 6: educated patient on anatomy of back and radicular symptoms 7: hooklying head raise 5 x 2 , 8: hooklying min crunch with legs on red thera ball 10 x Skilled Intervention: Patient was educated in proper exercise technique and purpose for exercises. Reviewed and educated patient on additions/changes for home exercise program as above (*). Skilled judgment was used in selection of appropriate interventions. Provided written instruction for home exercise program to facilitate proper performance and compliance. Therapeutic Activity: 1: log roll to left 5 x with supine to sit Skilled Intervention: verbal cues for technique Neuromuscular Re-Education: 1: 4 stage balance test 30 second hold each Skilled Intervention: progressing static balance Gait Trainin: gait 70 ; x 4 inbetween interventions for radiculopathy Skilled Intervention: verbal cues to increase stride length Billing Therapeutic Exercise Treatment Minutes: 30 Therapeutic Activity Treatment Minutes: 5 Neuromuscular Re-Education Treatment Minutes: 5 Gait Training Treatment Minutes: 5 Skilled Treatment Time Minutes (timed and untimed codes): 45 Total Session Time (minutes): 46 Session Start Time : 1052 Session Stop Time : 1138 Kavon Moreno PTA * Kavon Moreno PTA - 06/08/2024 11:31 AM EST Program_ID:[id number] Access Code: [email or web address] URL: [email or web address] Date: 06-08-2024 Prepared By: Raya Moreno Program Notes Exercises - Supine Hip Abduction - 1-2 x daily - 5 x weekly - 2-3 sets - 10 reps - Standing Heel Raise - 1-2 x daily - 5 x weekly - 2-3 sets - 10 reps - Tandem Stance with Support - 1-2 x daily - 5 x weekly - 2-3 sets - 10 reps - Standing Lumbar Extension - 1-2 x daily - 5 x weekly - 2-3 sets - 10 reps documented [facility] NoteHNO ID: [id number] Author: KAVON MORENO PTA Service: ? Author Type: Guest Services Representative Type: Progress Notes Filed: 06/01/2024 17:06 Note Text: Episode Visit Count: 3 Therapist That Will Accept/Oversee The Plan Of Care: Lynn Jeff Start of Care Date: 05/18/24 Onset Date: 03/19/24 (longer time, but more symptomatic recently) Plan of Care Certification Date: 05/18/24 Next Certification Due Date: 08/16/24 Patient Identified by Name and Date of : Yes REHABILITATION AND SPORTS THERAPY PHYSICAL THERAPY TREATMENT NOTE ASSESSMENT: Jimi Soto tolerated the session with expected muscle soreness. He demonstrated difficulty with dynamic balance and improvements in single leg stance The patient will continue to benefit from ongoing skilled physical therapy to progress toward set goals. PLAN FOR NEXT VISIT: progress standing balance / gait and motor planning SUBJECTIVE: patient reports better balance , has trouble with coordination of both ue and le Pain: OBJECTIVE MEASURES WITH LEVEL OF FUNCTION: TREATMENT: Therapeutic Exercise: 1: slant board 1 min 2: standing bilateral ankle ryan flexio / plantar flexion 10 x 2 each 3: shuttle bilateral ankle plantar flexion 4 bands 10 x 2 , single leg 3 bands 10 x right /left Skilled Intervention: Patient was educated in proper exercise technique and purpose for exercises. Skilled judgment was used in selection of appropriate interventions. Neuromuscular Re-Education: 1: tandem stance 20 seconds x 3 right /left 2: forward retro leans in corner 10 x 2 3: *retro step with forwrd arm swing same side 10 x 2 right /left Skilled Intervention: Reviewed and educated patient on additions/changes for home program Gait Trainin: resistive forward walkingb 50 ' x 2 [place] 2: resistive side step 25 ' to right . 25 ' x 2 to left [place] tb Skilled Intervention: verbal cues for stability in right stance Billing Therapeutic Exercise Treatment Minutes: 15 Neuromuscular Re-Education Treatment Minutes: 15 Gait Training Treatment Minutes: 10 Skilled Treatment Time Minutes (timed and untimed codes): 40 Total Session Time (minutes): 41 Session Start Time : 1508 Session Stop Time : 1549 [facility]no [facility] History of Present illness Narrative* Kavon Moreno PTA - 06/01/2024 3:49 PM EST Episode Visit Count: 3 Therapist That Will Accept/Oversee The Plan Of Care: Lynn Jeff Start of Care Date: 05/18/24 Onset Date: 03/19/24 (longer time, but more symptomatic recently) Plan of Care Certification Date: 05/18/24 Next Certification Due Date: 08/16/24 Patient Identified by Name and Date of : Yes REHABILITATION AND SPORTS THERAPY PHYSICAL THERAPY TREATMENT NOTE ASSESSMENT: Jimi Soto tolerated the session with expected muscle soreness. He demonstrated difficulty with dynamic balance and improvements in single leg stance The patient will continue to benefitfrom ongoing skilled physical therapy to progress toward set goals. PLAN FOR NEXT VISIT: progress standing balance / gait and motor planning SUBJECTIVE: patient reports better balance , has trouble with coordination of both ue and le Pain: OBJECTIVE MEASURES WITH LEVEL OF FUNCTION: TREATMENT: Therapeutic Exercise: 1: slant board 1 min 2: standing bilateral ankle ryan flexio / plantar flexion 10 x 2 each 3: shuttle bilateral ankle plantar flexion 4 bands 10 x 2 , single leg 3 bands 10 x right /left Skilled Intervention: Patient was educated in proper exercise technique and purpose for exercises. Skilled judgment was used in selection of appropriate interventions. Neuromuscular Re-Education: 1: tandem stance 20 seconds x 3 right /left 2: forward retro leans in corner 10 x 2 3: *retro step with forwrd arm swing same side 10 x 2 right /left Skilled Intervention: Reviewed and educated patient on additions/changes for home program Gait Trainin: resistive forward walkingb 50 ' x 2 [place] tb 2: resistive side step 25 ' to right . 25 ' x 2 to left [place] tb Skilled Intervention: verbal cues for stability in right stance Billing Therapeutic Exercise Treatment Minutes: 15 Neuromuscular Re-Education Treatment Minutes: 15 Gait Training Treatment Minutes: 10 Skilled Treatment Time Minutes (timed and untimed codes): 40 Total Session Time (minutes): 41 Session Start Time : 1508 Session Stop Time : 1549 Kavon Moreno PTA documented [facility] NoteHNO ID: [id number] Author: LENORA MORAN CCC-PLATE GRAINER APPRENTICE Service: ? 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 OBJECTIVE: MEASURES WITH LEVEL OF FUNCTION: Professional training and skilled instructions were provided as follows: Cognitive-linguistic skills Expressive language skills Cognition Cognitive Status: Within Functional Limits For Current Session Except Cognitive Deficits: Attention Deficit, Memory Deficits, Executive Function Deficit Attention Deficit: Alternating, Selective Memory Deficits: Short Term Short Term Memory Comments: 70% with moderate cues for internal repetition, visualization, auditory rehearsal, and written supports Executive Function Deficits: Reasoning/Inferences, Organization, Divergent Naming Reasoning/Inferences Comments: min-moderate Divergent Naming Comments : 85% w/ moderate semantic and initial grapheme cues Speech/Voice/Language Speech Production: Within Functional Limits Expressive and Receptive Language: Within Functional Limits Except Verbal Expression Deficits: Expressing Complex Information, Conversational Speech, Convergent Naming, Divergent Naming Divergent Naming - (%): 85 % Divergent Naming Cues Provided: Moderate Language Impairments Observed: Anomia, Pauses/Hesitations, Tangential Speech TREATMENT: Speech/Language Therapy (50137): Skilled Intervention: Educated and instructed patient on compensatory strategies for word-finding, daily problem solving scenarios , simple reasoning, complex reasoning, and thought organization Educated and instructed patient on memory recall strategies such as focused attention, verbal repetition, active repetition, visualization, association, chunking, graphic skills, and designated routine. Provided multi-modality cues in problem solving tasks , attention tasks, executive functioning tasks, auditory / verbal memory tasks, simple reasoning, complex reasoning, sequencing, and visual reasoning / organization. Assigned Home Exercise Program: Current Home Program: Written information re: compensatory strategies for memory and word finding Current Home Program: Written information re: compensatory strategies for memory and word finding Billing: Speech Treatment ([id number]) Total time / Length of visit: 57 minutes Session Start Time : 1430 Session Stop Time : 152 [facility]ANIE RamirezHoul[facility]02-04-2025 History of Present illness Narrative* Lenora Moran CCC-SLP - 06/01/2024 1:34 PM ESTSummary: SPEECH THERAPY Episode Visit Count: 2 Therapist That Will Accept/Oversee The Plan Of Care: LUISA Start of Care Date: 05/18/24 Onset Date: 04/30/24 Plan of Care Certification Date: 05/18/24 Next Certification Due Date: 06/17/24 Patient Identified by Name and Date of : Yes REHABILITATION AND SPORTS THERAPY SPEECH THERAPY TREATMENT NOTE IMPRESSION: Functional communication without limitations in: Speech, Voice, Fluency Communication deficits identified: Cognitive-Linguistic deficits 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 OBJECTIVE: MEASURES WITH LEVEL OF FUNCTION: Professional training and skilled instructions were provided as follows: Cognitive-linguistic skills Expressive language skills Cognition Cognitive Status: Within Functional Limits For Current Session Except Cognitive Deficits: Attention Deficit, Memory Deficits, Executive Function Deficit Attention Deficit: Alternating, Selective Memory Deficits: Short Term Short Term Memory Comments: 70% with moderate cues for internal repetition, visualization, auditoryrehearsal, and written supports Executive Function Deficits: Reasoning/Inferences, Organization, Divergent Naming Reasoning/Inferences Comments: min-moderate Divergent Naming Comments : 85% w/ moderate semantic and initial grapheme cues Speech/Voice/Language Speech Production: Within Functional Limits Expressive and Receptive Language: Within Functional Limits Except Verbal Expression Deficits: Expressing Complex Information, Conversational Speech, Convergent Naming, Divergent Naming Divergent Naming - (%): 85 % Divergent Naming Cues Provided: Moderate Language Impairments Observed: Anomia, Pauses/Hesitations, Tangential Speech TREATMENT: Speech/Language Therapy ([id number]): Skilled Intervention: Educated and instructed patient on compensatory strategies for word-finding, daily problem solving scenarios , simple reasoning, complex reasoning, and thought organization Educated and instructed patient on memory recall strategies such as focused attention, verbal repetition, active repetition, visualization, association, chunking, graphic skills, and designated routine. Provided multi-modality cues in problem solving tasks , attention tasks, executive functioning tasks, auditory / verbal memory tasks, simple reasoning, complex reasoning, sequencing, and visual reasoning / organization. Assigned Home Exercise Program: Current Home Program: Written information re: compensatory strategies for memory and word finding Current Home Program: Written information re: compensatory strategies for memory and word finding Billing: Speech Treatment ([id number]) Total time / Length of visit: 57 minutes Session Start Time : 1431 Session Stop Time : 1528 STEPHANIE Ramirez documented in this encounterK[facility]01-29-2025 NoteHNO ID: [id number] Author: KAVON MORENO PTA Service: ? Author Type: Guest Services Representative Type: Progress Notes Filed: 05/26/2024 17:31 Note Text: Episode Visit Count: 2 Therapist That Will Accept/Oversee The Plan Of Care: Lynn Jeff Start of Care Date: 05/18/24 Onset Date: 03/19/24 (longer time, but more symptomatic recently) Plan of Care Certification Date: 05/18/24 Next Certification Due Date: 08/16/24 Patient Identified by Name and Date of : Yes REHABILITATION AND SPORTS THERAPY PHYSICAL THERAPY TREATMENT NOTE ASSESSMENT: Jimi Mullet tolerated the session with expected muscle soreness. He demonstrated difficulty with calf raises in weight bearing and improvements in static standing balance in frontal pland with tandem stance . The patient will continue to benefit from ongoing skilled physical therapy to progress toward set goals. PLAN FOR NEXT VISIT: continue to progress standing static and dynamic balance and ankle strength in sagittal plane SUBJECTIVE: patient reports balance is not as bad as it was last week, losses balancve to left worse with sitv to stand or making quick turns patient might bump into left door frame when going through a door Pain: Pain Pain Level: 0 OBJECTIVE MEASURES WITH LEVEL OF FUNCTION: TREATMENT: Therapeutic Exercise: 1: nu step seat 11 , level 3 5 min reviewed medical history pertaining to balance 2: *supine hip abduction purple tb 10 x right /left /bilateral 3: shuttle bilateral leg press 5 band , 6 bands, 10 x 2 each , with wobble board 10 x 2 6 bands 4: *standing bilateral ankle plantar flexion 10 x 2 , verbal and tactile cues to decrease forward sway Skilled Intervention: Patient was educated in proper exercise technique and purpose for exercises. Reviewed and educated patient on additions/changes for home exercise program as above (*). Reviewed and educated patient on additions/changes for home exercise program . Provided written instruction for home exercise program to facilitate proper performance and compliance. Patient education as noted. Neuromuscular Re-Education: 1: *tandem stance 20 seconds x 3 right /left Skilled Intervention: verbal cues for ankle and hip stability Billing Therapeutic Exercise Treatment Minutes: 30 Neuromuscular Re-Education Treatment Minutes: 7 Skilled Treatment Time Minutes (timed and untimed codes): 37 Total Session Time (minutes): 37 Session Start Time : 1344 Session Stop Time : 1421 [facility]on Moreno [facility]01-29-2025 History of Present illness Narrative* Kavon Moreno PTA - 05/26/2024 5:28 PM EST Episode Visit Count: 2 Therapist That Will Accept/Oversee The Plan Of Care: Lynn Jeff Start of Care Date: 05/18/24 Onset Date: 03/19/24 (longer time, but more symptomatic recently) Plan of Care Certification Date: 05/18/24 Next Certification Due Date: 08/16/24 Patient Identified by Name and Date of : Yes REHABILITATION AND SPORTS THERAPY PHYSICAL THERAPY TREATMENT NOTE ASSESSMENT: iJmi Soto tolerated the session with expected muscle soreness. He demonstrated difficulty with calf raises in weight bearing and improvements in static standing balance in frontal plandwith tandem stance . The patient will continue to benefit from ongoing skilled physical therapy to progress toward set goals. PLAN FOR NEXT VISIT: continue to progress standing static and dynamic balance and ankle strength in sagittal plane SUBJECTIVE: patient reports balance is not as bad as it was last week, losses balancve to left worse with sitv to stand or making quick turns patient might bump into left door frame when going through a door Pain: Pain Pain Level: 0 OBJECTIVE MEASURES WITH LEVEL OF FUNCTION: TREATMENT: Therapeutic Exercise: 1: nu step seat 11 , level 3 5 min reviewed medical history pertaining to balance 2: *supine hip abduction purple tb 10 x right /left /bilateral 3: shuttle bilateral leg press 5 band , 6 bands, 10 x 2 each , with wobble board 10 x 2 6 bands 4: *standing bilateral ankle plantar flexion 10 x 2 , verbal and tactile cues to decrease forward sway Skilled Intervention: Patient was educated in proper exercise technique and purpose for exercises. Reviewed and educated patient on additions/changes for home exercise program as above (*). Reviewed and educated patient on additions/changes for home exercise program . Provided written instruction for home exercise program to facilitate proper performance and compliance. Patient education as noted. Neuromuscular Re-Education: 1: *tandem stance 20 seconds x 3 right /left Skilled Intervention: verbal cues for ankle and hip stability Billing Therapeutic Exercise Treatment Minutes: 30 Neuromuscular Re-Education Treatment Minutes: 7 Skilled Treatment Time Minutes (timed and untimed codes): 37 Total Session Time (minutes): 37 Session Start Time : 1344 Session Stop Time : 1421 Kavon Moreno PTA * Kavon Moreno PTA - 05/26/2024 2:15 PM EST Program_ID:[id number] Access Code: [email or web address] URL: [email or web address] Date: 05-26-2024 Prepared By: Raya Moreno Program Notes Exercises - Supine Hip Abduction - 1-2 x daily - 5 x weekly - 2-3 sets - 10 reps - Standing Heel Raise - 1-2 x daily - 5 x weekly - 2-3 sets - 10 reps - Tandem Stance with Support - 1-2 x daily - 5 x weekly - 2-3 sets - 10 reps documented in this encounterK[facility]01-27-2025 Telephone encounter Note * Telephone Encounter - Sangeeta Carrion RN - 05/24/2024 9:57 AM EST Patient calls and notified of results and providers instructions. Questions all answered to patientsatisfaction and patient verbalizes understanding. Sangeeta Carrion RN [facility]01-27-2025 Miscellaneous Notes* Telephone Encounter - Sangeeta Carrion RN - 05/24/2024 9:57 AM EST Patient calls and notified of results and providers instructions. Questions all answered to patientsatisfaction and patient verbalizes understanding. Sangeeta Carrion RN * Telephone Encounter - Sarah Hodgson MA - 05/24/2024 9:33 AM EST Message left for pt to call back for results. Sarah Hodgson MA * Telephone Encounter - Jaimee Prater LPN - 05/20/2024 1:58 PM EST TC to pt. LM to call office, ask for triage nurse to get results. Jaimee Prater LPN * Telephone Encounter - Alpesh Hill MD - 05/20/2024 1:20 PM EST Stable CKD stage IIIa. Recommend low sodium diet <2,000 mg per day, avoidance of NSAIDs, and increased water intake. F/u with nephrology as recommended. Vitamin D level severely low. Recommend 50,000 units of vitamin D weekly x 12 weeks and recheck in 3 months. documented in this encounterK[facility]01-27-2025 Telephone encounter Note * Telephone Encounter - Sarah Hodgson MA - 05/24/2024 9:33 AM EST Message left for pt to call back for results. Sarah Hodgson MA [facility]01-23-20[facility] Telephone encounter Note* Telephone Encounter - Jaimee Prater LPN - 05/20/2024 1:58 PM EST TC to pt. LM to call office, ask for triage nurse to get results. Jaimee Prater LPN [facility]01-23-2025 Telephone encounter Note* Telephone Encounter - Alpesh Hill MD - 05/20/2024 1:20 PM EST Stable CKD stage IIIa. Recommend low sodium diet <2,000 mg per day, avoidance of NSAIDs, and increased water intake. F/u with nephrology as recommended. Vitamin D level severely low. Recommend 50,000 units of vitamin D weekly x 12 weeks and recheck in 3 months. [facility]01-[facility]25 NoteHNO ID: [id number] Author: ALPESH HILL MD Service: ? Author Type: Physician Type: Progress Notes Filed: 05/25/2024 12:48 Note Text: Chief Complaint Patient presents with: Follow Up: Routine annual check up HPI Jimi Soto is a 58 year old male who presents here today for Above Complaints. Here today by himself. Patient complaining today of pain at the tip of his penis and right testicle in the last couple of days. Denies dysuria, hematuria, urinary frequency, urgency, penile discharge, nausea, vomiting, abdominal pain, flank pain. Patient is not sexually active. Notes history of mumps and right testicle is larger than the left. No pain at the time of this visit. Patient referred to neurology at last OV with Rose Marie for lightheadedness, slurred speech, and vision changes. She also obtained MRI/MRA of head and neck which showed: IMPRESSION: No acute intracranial pathology. Innumerable chronic microhemorrhages, of uncertain etiology. No stenosis or occlusion in the head or neck. Evaluated on 04/[address] Joya who was concerned for amyloid angiopathy and was referred to [facility] as well as speech therapy and PT. Will f/u in [address] Joya. Has had one session of PT and ST so far. OV with [facility] in July with Dr. Villavicencio. Today, he states that he has had worsening unsteady gait without falls. Not using cane or walker for ambulation and does not want order today. Has HEP through PT which he has not started yet. Other symptoms are stable. Denies severe headache, loss of vision, facial droop, numbness/tingling/weakness. Following up yearly with Dr. Arthur for CKD stage IIIa with last OV in December. CKD thought to be 2/2 lithium use. No changes to regimen. Labs repeated and reviewed. Patient does not take NSAIDs and does follow low sodium diet. HTN: Mr. Soto indicates that he is feeling well and denies any symptoms referable to elevated blood pressure. Specifically denies headache, chest pain, palpitations, dyspnea, and peripheral edema. Patient denies any side effects of his medication(s) and is compliant with their regimen. He does not check BP's generally. Jimi gets minimal exercise. He watches his diet for sodium, low fat and low cholesterol most of the time. Last 3 Encounter BP Readings: Date: BP: 05/19/2024 116/76 04/30/2024 145/89 02/23/2024 108/68 Patient switching psychiatry to Dr. Daniel next week for his history of bipolar disorder. Last OV with Dr. Stahl was about 2 months ago. States that they did lower his dosage of Olanzapine to 10 mg qhs in case it was causing his neurological/parkinsonism symptoms. No improvement in neurological symptoms. Depression symptoms controlled on current regimen without recent manic episodes. Denies SI/HI. GERD controlled on prilosec on daily basis without side effects. Past medical history, appointments, medications, allergies reviewed. Previous Medical History PAST MEDICAL HISTORY Diagnosis Date Allergy to environmental factors Dr. Fernandes Anemia Bipolar 1 disorder (HCC) Dr. Stahl Chronic kidney disease (CKD), stage III (moderate) (HCC) Dr. Arthur Essential hypertension Family history of prostate cancer in father GERD (gastroesophageal reflux disease) Hx of gallstones s/p cholecystectomy Hyperlipidemia Internal hemorrhoids Irritable bowel syndrome Kidney dysfunction LBBB (left bundle branch block) incomplete. Negative echo in 2018. OA (osteoarthritis) of knee Obesity (BMI 30.0-34.9) Previous Surgical History PAST SURGICAL HISTORY Procedure Laterality Date APPENDECTOMY remotely COLONOSCOPY FLX DX W/COLLJ SPEC WHEN PFRMD 06/15/2014 Colonoscopy COLONOSCOPY SCREENING Bilateral 08/22/2022 ESOPHAGOGASTRODUODENOSCOPY TRANSORAL DIAGNOSTIC 06/15/2014 EGD INCISION AND DRAINAGE ABSCESS SIMPLE/SINGLE both sides of face. KNEE SURGERY HX arthroscopic surgery for cartilage removal. unsure which knee L'SCOPE CHOLECYSTECTOMY 12/2021 Family History FAMILY HISTORY Problem Relation Age of Onset Cancer Father prostate, skin cancer Hypertension Father Coronary Artery Disease Mother stroke and mi Diabetes Mother Heart Sister [place] age 50s Mental illness Brother suicide Mental illness Brother Heart Maternal Grandmother Diabetes Maternal Grandmother Breast Cancer Paternal Grandmother Mental illness Brother hunting accident Patient Allergies ALLERGIES Allergen Reactions Biaxin [Clarithromy* Intolerance Depakote [Divalproe* Intolerance Ibuprofen Intolerance advil Latex Unknown Prozac [Fluoxetine * Intolerance Spectazole [Econazo* Intolerance Wellbutrin [Bupropi* Intolerance CAUSES [employer]AT[employer] STATE Current Medications Current Outpatient Medications on File Prior to Visit Medication Sig fenofibrate nanocrystallized (TRICOR) 48 mg tablet Take 1 tablet by mouth once daily. omeprazole (PRILOSEC) 20 mg capsule Take 1 capsule by haley (more content not included)...[facility]01-22-2025 History of Present illness Narrative* Alpesh Hill MD - 05/19/2024 1:04 PM EST Chief Complaint Patient presents with: Follow Up: Routine annual check up HPI Jimi Soto is a 58 year old male who presents here today for Above Complaints. Here today by himself. Patient complaining today of pain at the tip of his penis and right testicle in the last couple of days. Denies dysuria, hematuria, urinary frequency, urgency, penile discharge, nausea, vomiting, abdominal pain, flank pain. Patient is not sexually active. Notes history of mumps and right testicle is larger than the left. No pain at the time of this visit. Patient referred to neurology at last OV with Rose Marie for lightheadedness, slurred speech, and visionchanges. She also obtained MRI/MRA of head and neck which showed: IMPRESSION: No acute intracranial pathology. Innumerable chronic microhemorrhages, of uncertain etiology. No stenosis or occlusion in the head or neck. Evaluated on 04/[address] Joya who was concerned for amyloid angiopathy and was referred to [facility] as well as speech therapy and PT. Will f/u in [address] Joya. Has had one session of PT and ST so far. OV with [facility] in July with Dr. Villavicencio. Today, he states that he has had worsening unsteady gait without falls. Not using cane or walker for ambulation and does not want order today. Has HEP through PT which he has not started yet. Other symptoms are stable. Denies severe headache, loss of vision, facial droop, numbness/tingling/weakness. Following up yearly with Dr. Arthur for CKD stage IIIa with last OV in December. CKD thought to be2/2 lithium use. No changes to regimen. Labs repeated and reviewed. Patient does not take NSAIDs and does follow low sodium diet. HTN: Mr. Soto indicates that he is feeling well and denies any symptoms referable to elevated blood pressure. Specifically denies headache, chest pain, palpitations, dyspnea, and peripheral edema. Patient denies any side effects of his medication(s) and is compliant with their regimen. He does not check BP's generally. Jimi gets minimal exercise. He watches his diet for sodium, low fat and low cholesterol most of the time. Last 3 Encounter BP Readings: Date: BP: 05/19/2024 116/76 04/30/2024 145/89 02/23/2024 108/68 Patient switching psychiatry to Dr. Daniel next week for his history of bipolar disorder. Last OV with Dr. Stahl was about 2 months ago. States that they did lower his dosage of Olanzapine to 10 mg qhs in case it was causing his neurological/parkinsonism symptoms. No improvement in neurological symptoms. Depression symptoms controlled on current regimen without recent manic episodes. Denies SI/HI. GERD controlled on prilosec on daily basis without side effects. Past medical history, appointments, medications, allergies reviewed. Previous Medical History PAST MEDICAL HISTORY Diagnosis Date Allergy to environmental factors Dr. Fernandes Anemia Bipolar 1 disorder (HCC) Dr. Stahl Chronic kidney disease (CKD), stage III (moderate) ([facility]) Dr. Arthur Essential hypertension Family history of prostate cancer in father GERD (gastroesophageal reflux disease) Hx of gallstones s/p cholecystectomy Hyperlipidemia Internal hemorrhoids Irritable bowel syndrome Kidney dysfunction LBBB (left bundle branch block) incomplete. Negative echo in 2018. OA (osteoarthritis) of knee Obesity (BMI 30.0-34.9) Previous Surgical History PAST SURGICAL HISTORY Procedure Laterality Date APPENDECTOMY remotely COLONOSCOPY FLX DX W/COLLJ SPEC WHEN PFRMD 06/15/2014 Colonoscopy COLONOSCOPY SCREENING Bilateral 08/22/2022 ESOPHAGOGASTRODUODENOSCOPY TRANSORAL DIAGNOSTIC 06/15/2014 EGD INCISION & DRAINAGE ABSCESS SIMPLE/SINGLE both sides of face. KNEE SURGERY HX arthroscopic surgery for cartilage removal. unsure which knee L'SCOPE CHOLECYSTECTOMY 12/2021 Family History FAMILY HISTORY Problem Relation Age of Onset Cancer Father prostate, skin cancer Hypertension Father Coronary Artery Disease Mother stroke and mi Diabetes Mother Heart Sister [place] age 50s Mental illness Brother suicide Mental illness Brother Heart Maternal Grandmother Diabetes Maternal Grandmother Breast Cancer Paternal Grandmother Mental illness Brother hunting accident Patient Allergies ALLERGIES Allergen Reactions Biaxin [Clarithromy* Intolerance Depakote [Divalproe* Intolerance Ibuprofen Intolerance advil Latex Unknown Prozac [Fluoxetine * Intolerance Spectazole [Econazo* Intolerance Wellbutrin [Bupropi* Intolerance CAUSES [employer] STATE Current Medications Current Outpatient Medications on File Prior to Visit Medication Sig fenofibrate nanocrystallized (TRICOR) 48 mg tablet Take 1 tablet by mouth once daily. omeprazole (PRILOSEC) 20 mg capsule Take 1 capsule by mouth daily before breakfast. 1/2 hr before meal. atorvastatin (LIPITOR) 80 mg tablet Take 1 tablet by mouth once daily. docusate sodium (COLACE) 100 mg capsule Take 100 mg by mouth twice daily. OLANZapine (ZYPREXA) 10 mg tablet Take 2 tablets by mouth daily at bedtime. (Patient taking differently: Take 10 mg by mouth daily at bedtime.) lamoTRIgine (LAMICTAL) 200 mg tablet Take 300 mg by mouth once daily. clonazePAM (KLONOPIN) 1 mg tablet Take 1 mg by mouth at bedtime as needed. zolpidem (AMBIEN) 10 mg tab Take by mouth at bedtime as needed. venlafaxine XR (EFFEXOR XR) 150 mg tr24 Take by mouth once daily. DULoxetine (CYMBALTA) 60 mg capsule Take 60 mg by mouth twice daily. FERROUS SULFATE (HIGH POTENCY IRON ORAL) Take 1 tablet by mouth once daily. cyanocobalamin (VITAMIN B-12) 500 mcg tablet Take 2 tablets by mouth once daily. CARBATROL 300 MG 12 HR CAP Take two capsules two(2) times daily. Dextromethorphan-guaiFENesin (TUSSIN DM MAX) 10-200 mg/5 mL liqd Take 5 mL by mouth every 6 hours as needed. albuterol HFA (VENTOLIN HFA) 90 mcg/actuation inhaler Inhale 2 Puffs as instructed every 4 hours asneeded for wheezing/shortness of breath. fluticasone (FLONASE) 50 mcg/actuation nasal spray Use 2 Sprays in each nostril once daily. Rinse mouth after use. nystatin (NYSTOP) powder Apply 1 application to affected area three times a day. Current Facility-Administered Medications on File Prior to Visit Medication propofol injection (DIPRIVAN) Social History Social History Tobacco Use Smoking status: Never Smokeless tobacco: Never Substance Use Topics Alcohol use: No Drug use: No Review of Symptoms REVIEW OF SYSTEMS GENERAL: No weight loss, malaise or fevers HEENT: SEE HPI NECK: Negative for lumps, goiter, pain and significant neck swelling RESPIRATORY: Negative for cough, hemoptysis, wheezing, COPD, dyspnea or shortness of breath CARDIOVASCULAR: Negative for chest pain, leg swelling, hypertension, CHF or palpitations GI: No nausea, vomiting, or diarrhea : See HPI MUSCULOSKELETAL: Negative for joint pain or swelling, back pain or muscle pain SKIN: Negative for lesions, rash, and itching PSYCH: See HPI HEMATOLOGY/LYMPHOLOGY: Negative for prolonged bleeding, bruising easily or swollen nodes ENDOCRINE: Negative for cold or heat intolerance, polyuria, polydipsia and goiter NEURO: No history of headaches, syncope, paralysis, seizures or tremors EXAM: BP 116/76 Pulse 77 Resp 16 Wt 112.6 kg (248 lb 3.2 oz) SpO2 99% BMI 33.77 kg/m General Appearance: Well appearing, alert, in no acute distress, well-hydrated, well nourished.. Skin: Skin color, texture, turgor normal, no suspicious rashes or lesions. Lungs: Lungs clear to auscultation. No wheezing, rhonchi, rales.. Heart: RRR without murmur, gallop, or rubs. No ectopy. Abdomen: Normal abdominal exam, Abdomen soft, non-tender. Bowel sounds normal. No masses, organomegaly. Extremities: No deformities, edema, skin discoloration, clubbing or cyanosis. Good capillary refill. . Genitalia: Penis normal. No urethral discharge. Right testicle larger than left but non tender. No hernia.. The sensitive examination was discussed with the Patient or Patient's Authorized Harness Rigger. Asapplicable, any other physician, advance practice provider, medical student, or other health professional student that will be observing or involved in the sensitive examination for educational or training purposes was discussed with the Patient or Authorized Harness Rigger. The Patient or Authorized Harness Rigger has agreed to proceed with the sensitive examination. (Sensitive examination includes inspection and/or palpation of the breasts, pelvis, prostate and anorectal regions) Health Maintenance List Depression Screening Never done Anxiety Screening Never done BP Controlled (<130/80) due on 04/02/2024 Colorectal Cancer Screening due on 06/15/2024 Prostate Cancer Screening Discussion due on 07/05/2024 Annual PCP Team Chronic Disease Visit due on 02/22/2025 Serum Creatinine due on 03/03/2025 Hemoglobin/Hematocrit due on 03/03/2025 Diabetes Screening due on 03/03/2027 DTaP,Tdap,Td Vaccine(2 - Td or Tdap) due on 01/18/2028 Lipid Screening due on 03/03/2029 RSV Vaccine(1 - 1-dose 75+ series) due on 2038 Influenza Vaccine Completed Hepatitis C Screening Completed HIV Screening Completed Shingrix Vaccine Completed Covid-19 Vaccine Completed Pneumococcal Vaccine: 50+ Completed Data reviewed Latest Ref Rng 12/05/2023 12/16/2023 03/03/2024 WBC 3.70 - 11.00 k/uL 3.51 (L) 3.86 3.65 (L) RBC 4.20 - 6.00 m/uL 3.18 (L) 2.92 (L) 3.19 (L) Hemoglobin 13.0 - 17.0 g/dL 11.3 (L) 10.6 (L) 11.6 (L) Hematocrit 39.0 - 51.0 % 34.4 (L) 32.2 (L) 34.8 (L) MCV 80.0 - 100.0 fL 108.2 (H) 110.3 (H) 109.1 (H) MCH 26.0 - 34.0 pg 35.5 (H) 36.3 (H) 36.4 (H) MCHC 30.5 - 36.0 g/dL 32.8 32.9 33.3 RDW-CV 11.5 - 15.0 % 12.6 13.1 13.0 Platelet Count 150 - 400 k/uL 212 229 200 MPV 9.0 - 12.7 fL 10.2 10.3 10.1 Neut% % 41.6 32.0 Abs Neut (ANC) 1.45 - 7.50 k/uL 1.46 1.17 (L) Lymph% % 43.0 52.1 Abs Lymph 1.00 - 4.00 k/uL 1.51 1.90 Adams% % 10.5 10.4 Abs Adams <0.87 k/uL 0.37 0.38 Eosin% % 3.7 3.8 Abs Eosin <0.46 k/uL 0.13 0.14 Baso% % 0.9 1.4 Abs Baso <0.11 k/uL 0.03 0.05 Immature Gran % % 0.3 0.3 IMMATURE GRANS (ABS) <0.10 k/uL <0.03 <0.03 NRBC /100 WBC 0.0 0.0 Absolute nRBC <0.01 k/uL <0.01 <0.01 <0.01 DTYPE Auto Auto Protein, Total 6.3 - 8.0 g/dL 6.2 (L) 6.1 (L) Albumin 3.9 - 4.9 g/dL 4.1 4.3 4.0 Calcium 8.5 - 10.2 mg/dL 9.5 9.0 9.1 Bilirubin, Total 0.2 - 1.3 mg/dL 0.2 <0.2 (L) Alkaline Phosphatase 38 - 113 U/L 62 71 AST 14 - 40 U/L 20 17 ALT 10 - 54 U/L 16 11 Glucose 74 - 99 mg/dL 110 (H) 102 (H) 100 (H) BUN 9 - 24 mg/dL 14 14 17 Creatinine 0.73 - 1.22 mg/dL 1.41 (H) 1.38 (H) 1.42 (H) Sodium 136 - 144 mmol/L 144 139 141 Potassium 3.7 - 5.1 mmol/L 4.8 4.8 4.4 Chloride 98 - 107 mmol/L 107 104 105 CO2 22 - 30 mmol/L 27 27 26 Anion Gap 8 - 15 mmol/L 10 8 10 eGFR >=60 mL/min/1.73m 57 (L) 59 (L) 57 (L) Phosphorus 2.7 - 4.8 mg/dL 2.9 Cholesterol, Total <200 mg/dL 185 164 Triglyceride <150 mg/dL 204 (H) 119 HDL Cholesterol >39 mg/dL 42 43 Non HDL Cholesterol <130 mg/dL 143 (H) 121 Fasting Time hrs 12 12 VLDL Cholesterol <30 mg/dL 41 (H) 24 TC:HDL Ratio <5.10 4.40 3.81 LDL Cholesterol <100 mg/dL 102 (H) 97 LDL:HDL Ratio <2.54 2.43 2.26 Platelet Estimate Adequate Red Cell Morph Reviewed: see results of individual morphologies Polychromasia Slight Ovalocytes Few Protein, Urine Random 0 - 20 mg/dL <4 Creatinine, Ur Random (UCRR) 20.0 - 300.0 mg/dL 59.6 Protein/Creat Ratio <0.15 mg/mg <0.07 Hemoglobin A1C 4.3 - 5.6 % 5.6 5.2 Estimated Average Glucose mg/dL 114 103 Vitamin D 25 Hydroxy 31.0 - 80.0 ng/mL 19.0 (L) Vit D1,25 Dihydroxy 19.9 - 79.3 pg/mL 48.7 PTH, Intact 15 - 65 pg/mL 58 Legend: (L) Low (H) High Latest Ref Rng 05/19/2024 GLUCOSE UA (POCT) Negative mg/dL Negative BILIRUBIN UA (POCT) Negative Negative KETONE UA (POCT) Negative mg/dL Negative SPECIFIC GRAVITY UA (POCT) 1.005 - 1.030 1.010 HEMOGLOBIN/BLOOD UA (POCT) Negative Negative PH UA (POCT) 4.5 - 8.0 7.0 PROTEIN UA (POCT) Negative mg/dL Negative UROBILINOGEN UA (POCT) Normal E.U./dL 0.2 NITRITE UA (POCT) Negative Negative LEUKOCYTES UA (POCT) Negative Negative COLOR UA (POCT) Light yellow CLARITY UA (POCT) Clear ASSESSMENT/PLAN: 1. Annual wellness visit - ICD9: V70.0, ICD10: Z00.00 (primary diagnosis) - Counseled on healthy diet and regular exercise - Discussed need for and benefit of weight loss. BMI 33.76 kg/(m^2) - Counseled on alcohol intake and health risks - Follow up for annual exam in one year 2. Penile pain - ICD9: 607.9, ICD10: N48.89 Normal exam today and symptoms have resolved. UA negative. No change in regimen. Call if symptoms return. Push PO fluids. - UA DIP, URINE (POC) 3. Testicular pain, right - ICD9: 608.9, ICD10: N50.811 Unremarkable exam. Symptoms have resolved. Call if recurrent. - UA DIP, URINE (POC) 4. Cerebral hemorrhage (HCC) - ICD9: 431, ICD10: I61.9 Worsening balance which he will start HEP for. F/u with further testing as recommended by neurology. Red flags for re-assessment reviewed with patient in detail. 5. Balance problems - ICD9: 781.99, ICD10: R26.89 See above. 6. Essential hypertension - ICD9: 401.9, ICD10: I10 - Controlled - Continue current medications - Recommend home blood pressure monitoring, to bring results to next visit - Encouraged sodium restriction, DASH or Mediterranean diet - Recommend regular aerobic exercise 7. Mixed hyperlipidemia - ICD9: 272.2, ICD10: E78.2 - Improving control - Continue current medications - Counseled on healthy diet and regular exercise 8. Stage 3a chronic kidney disease (HCC) - ICD9: 585.3, ICD10: N18.31 Recheck CMP - Counseled on avoiding NSAIDs, adequate hydration - Counseled on low sodium diet - COMPREHENSIVE METABOLIC PANEL 9. Gastroesophageal reflux disease, unspecified whether esophagitis present - ICD9: 530.81, ICD10: K21.9 - Discussed lifestyle modifications including losing weight, limiting caffeine, and no meals three hours before sleep - Continue treatment with Prilosec 20 mg QD 10. Anemia, unspecified type - ICD9: 285.9, ICD10: D64.9 Stable. Will recheck at future OV. 11. Obesity, Class I, BMI 30-34.9 - ICD9: 278.00, ICD10: E66.811 - Counseled on healthy diet and regular exercise 12. Bipolar affective disorder, current episode mixed, current episode severity unspecified (HCC) -ICD9: 296.60, ICD10: F31.60 Controlled on current regimen. F/u with psychiatry as scheduled. 13. Vitamin D deficiency - ICD9: 268.9, ICD10: E55.9 Recheck. - VITAMIN D 25 HYDROXY Alpesh Hill MD [facility] NoteHNO ID: [id number] Author: CORRINA JEFF, MIGEL Service: ? Author Type: Physical Therapist Type: Progress Notes Filed: 05/21/2024 15:54 Note Text: Episode Visit Count: 1 Therapist That Will Accept/Oversee The Plan Of Care: Lynn Jeff Start of Care Date: 05/18/24 Onset Date: 03/19/24 (longer time, but more symptomatic recently) Plan of Care Certification Date: 05/18/24 Next Certification Due Date: 08/16/24 Patient Identified by Name and Date of : Yes REHABILITATION AND SPORTS THERAPY 2PHYSICAL THERAPY EVALUATION PLAN OF CARE: Assessment: Jimi Soto presents with diagnosis of balance problems with cognitive decline that interferes with walking in the house, physical activities (not living in house- but apt) . The patient presents with impairments in balance, flexibility, gait, independence in exercise, and overall function. PROMIS? (Patient-Reported Outcomes Measurement Information System) scores were reviewed and identified as a rehabilitation concern. Prognosis for therapy is Good due to: good overall health status, current objective clinical presentation . The patient will benefit from skilled therapy services to meet the goals established for this plan of care as noted below. Classification Diagnosis Grouping: CVA Goals for Episode of Care: established 05/18/24 Patient reported outcome of pain Interference will decrease T -score by a minimum of 5 points. Patient reported outcome of physical function, self-efficacy, and mobility will increase T-score by a minimum 5 points. [place] in home exercise program. Patient will increase flexibility of Bilat hams and lower extremity's as needed to WNL to improve ability to maintain proper posture and improve mechanics. Patient will be able to Perform aTimed Up and Go to 14 sec seconds to demonstrate decreased risk of falling. Patient will improve 10MWT to 1.2m/s with no assistive device to demonstrate improvement in functional community ambulation. Patient will improve 5 time sit to stand to demonstrate improvement in functional lower extremity strength. Reciprocal stair negotiation. Patient Goals: to be able to control the episodes of unsteadiness. (and loss of balances) Time Frame for Goals and Treatment : 07/17/24 (or less) Planned Interventions, Frequency, and Duration: Current Frequency: 1x/week Duration: Two months Total Number of Visits Planned: 9 Planned Treatment Interventions: Neuromuscular re-education (68064), Therapeutic exercise (25149), Therapeutic activities (79754) PLAN FOR NEXT VISIT: progress static and dynamic balance ex Patient demonstrates good understanding of plan of care and treatment. The above goals and plan of care were discussed and agreed upon by patient/family. SUBJECTIVE: Pt reports he is here due to decreased balance. santos sometimes in his apartment more recently.almost seizure like as we discussed; pt reports has had some increased micro-bleeds and unsure if its related to the dizzy feeling and impaired balance Patient Goals: to be able to control the episodes of unsteadiness. (and loss of balances) Functional Limitations: walking in the house, physical activities (not living in house- but apt) Prior Level of Function: Independent with restrictions (due to bipolar) Relevant History Past Relevant Medical Conditions: Anxiety, Cerebral Vascular Accident, Depression, Kidney Problems, Hypertension Highest Level of Education: High School Right or Left Handed: Right Employment: Medically Disabled Home Environment Patient Lives With: Self/Alone (reports some contact with sblings) Home Type: Multi-Level (stair entrance flight) Entry To Home: Stairs Number Of Stairs Into Home: 12 (approx.) Number Of Stairs To Bed/Bath: 0 Intake Information: Prescription present Falls Interview: No positive findings with falls interview Pain: Pain Pain Level: 0 Post Treatment Pain Post Treatment Pain Level: No Change PROMIS Scales 05/18/2024 04/24/2024 Higher is Better Self-Eff Symptom - T Score 39 (Low) Self-Eff Symptom - Percentile 14 Mobility - T Score 38 (moderate dysfunction) Mobility - Percentile 12 Cognitve Function - T Score 34 (moderate dysfunction) Communication - Score 62.5 04/24/2024 Lower is Better Pain Interference - T Score 56 (mild) Pain Interference - Percentile 27 T-scores: mean of general population = 50. 5 points is clinically meaningfully difference Percentiles provide an indication of how the patient's score ranks in relation to the general population. Higher percentile rankings indicate better function/quality of life. 50th percentile is the average of the general population and indicates half of respondents had a worse score. OBJECTIVE MEASURES WITH LEVEL OF FUNCTION: Cognition Cognition: Communication Deficits, Follows Commands Communication Deficits: (slowed speech, clear) Follows Commands: 2-step Commands (more content not included)...[facility]01-21-2025 History of Present illness Narrative* Corrina Jeff, PT - 05/18/2024 5:38 PM EST Images from the original note were not included. Episode Visit Count: 1 Therapist That Will Accept/Oversee The Plan Of Care: Lynn Jeff Start of Care Date: 05/18/24 Onset Date: 03/19/24 (longer time, but more symptomatic recently) Plan of Care Certification Date: 05/18/24 Next Certification Due Date: 08/16/24 Patient Identified by Name and Date of : Yes REHABILITATION AND SPORTS THERAPY 2PHYSICAL THERAPY EVALUATION PLAN OF CARE: Assessment: Jimi Soto presents with diagnosis of balance problems with cognitive decline that interferes with walking in the house, physical activities (not living in house- but apt) . The patient presents with impairments in balance, flexibility, gait, independence in exercise, and overall function. PROMIS (Patient-Reported Outcomes Measurement Information System) scores were reviewed and identified as a rehabilitation concern. Prognosis for therapy is Good due to: good overall health status, current objective clinical presentation . The patient will benefit from skilled therapy services to meet the goals established for this plan of care as noted below. Classification Diagnosis Grouping: CVA Goals for Episode of Care: established 05/18/24 Patient reported outcome of pain Interference will decrease T -score by a minimum of 5 points. Patient reported outcome of physical function, self-efficacy, and mobility will increase T-score bya minimum 5 points. [place] in home exercise program. Patient will increase flexibility of Bilat hams and lower extremity's as needed to WNL to improve ability to maintain proper posture and improve mechanics. Patient will be able to Perform aTimed Up and Go to 14 sec seconds to demonstrate decreased risk offalling. Patient will improve 10MWT to 1.2m/s with no assistive device to demonstrate improvement in functional community ambulation. Patient will improve 5 time sit to stand to demonstrate improvement in functional lower extremity strength. Reciprocal stair negotiation. Patient Goals: to be able to control the episodes of unsteadiness. (and loss of balances) Time Frame for Goals and Treatment : 07/17/24 (or less) Planned Interventions, Frequency, and Duration: Current Frequency: 1x/week Duration: Two months Total Number of Visits Planned: 9 Planned Treatment Interventions: Neuromuscular re-education (87710), Therapeutic exercise (83732), Therapeutic activities (73717) PLAN FOR NEXT VISIT: progress static and dynamic balance ex Patient demonstrates good understanding of plan of care and treatment. The above goals and plan of care were discussed and agreed upon by patient/family. SUBJECTIVE: Pt reports he is here due to decreased balance. santos sometimes in his apartment more recently.almostseizure like as we discussed; pt reports has had some increased micro-bleeds and unsure if its related to the dizzy feeling and impaired balance Patient Goals: to be able to control the episodes of unsteadiness. (and loss of balances) Functional Limitations: walking in the house, physical activities (not living in house- but apt) Prior Level of Function: Independent with restrictions (due to bipolar) Relevant History Past Relevant Medical Conditions: Anxiety, Cerebral Vascular Accident, Depression, Kidney Problems,Hypertension Highest Level of Education: High School Right or Left Handed: Right Employment: Medically Disabled Home Environment Patient Lives With: Self/Alone (reports some contact with sblings) Home Type: Multi-Level (stair entrance flight) Entry To Home: Stairs Number Of Stairs Into Home: 12 (approx.) Number Of Stairs To Bed/Bath: 0 Intake Information: Prescription present Falls Interview: No positive findings with falls interview Pain: Pain Pain Level: 0 Post Treatment Pain Post Treatment Pain Level: No Change PROMIS Scales 05/18/2024 04/24/2024 Higher is Better Self-Eff Symptom - T Score 39 (Low) Self-Eff Symptom - Percentile 14 Mobility - T Score 38 (moderate dysfunction) Mobility - Percentile 12 Cognitve Function - T Score 34 (moderate dysfunction) Communication - Score 62.5 04/24/2024 Lower is Better Pain Interference - T Score 56 (mild) Pain Interference - Percentile 27 T-scores: mean of general population = 50. 5 points is clinically meaningfully difference Percentiles provide an indication of how the patient's score ranks in relation to the general population. Higher percentile rankings indicate better function/quality of life. 50th percentile is the average of the general population and indicates half of respondents had a worse score. OBJECTIVE MEASURES WITH LEVEL OF FUNCTION: Cognition Cognition: Communication Deficits, Follows Commands Communication Deficits: (slowed speech, clear) Follows Commands: 2-step Commands Posture / Alignment Posture: Rounded shoulders Sensory Sensory Deficits: (noine) LE Flexibility Flexibility: Hamstring Flexibility R Hamstring Flexibility: mod tight L Hamstring Flexibility: mod tight Mobility Supine To Sit: Independent Sit to Supine: Independent Sit To Stand: Independent Stand To Sit: Independent Gait Weight Bearing Status: FWB Gait: Independent Gait Distance (feet): 200' Gait Device: None Gait Deviations: (grossly wfl, MILD stiffness lumbar sp,) Functional Performance Test Results 10 Meter Walk Test Trial 1 (seconds): 5.7 10 Meter Walk Test Trial 2 (seconds): 8.7 (with head turns , needed to stop before 10 m) 10 Meter Walk Test Average (m/sec): 0.83 4 Stage Balance Test Narrow base of support (sec): 40 sec (+) Semi-tandem base of support (sec): 30 sec (+) Tandem base of support (sec): 2 sec (either r/;l fw) Single leg stance - right (sec): 0 sec Single leg stance - left (sec): 0 sec Orozco Balance Scale Sit to stand : 1 - Needs minimal aid to stand or to stabilize Standing unsupported : 4 - Able to stand safety 2 min Sitting : 4 - Able to sit safety and securely for 2 min Stand to sit: 4 - Sits safey minimal use of hands Transfers: 4 - Able to transfer safety with minor use of hands Standing unsupported with eyes closed : 1 - Unable to keep eyese closed 3 sec but stays steady Standing unsupported with feet together : 3 - Able to place feet together independently and stand for 1 min with supervision Reaching forward : 3 - Can reach forward > 5 inches Picking up object from floor : 3 - Able to picker feeder object but needs supervision Looking over shoulder: Needs supervision when turning Turn 360 degrees : 2 - Able to turn 360* safely but slowly (5sec) Alternate foot on step: 2 - Able to complete 4 steps without aid with supervision Tandem standing : 0 - Loses balance while stepping or standing Standing on leg : 2 - Able to lift leg independently and hold equal to or > 3 sec Orozco Balance Test Total (calculated): 34 Functional Reach - Stand Functional Reach Stand - Right (inches): 10.5 in Functional Reach Stand - Left (inches): 10.5 in Education: Education Learning Preferences: Demonstration, Explanation, Performance Barriers: Acuity of Illness Learning/educational needs: Home exercise program, Changes in Plan of Care, Safety TREATMENT: PT Treatment Interventions: Therapeutic Activity, Therapeutic Exercise, Neuromuscular Re-Education Evaluation Evaluation Therapeutic Activity: 1: Home safety, monitor symptoms 2: PT Eval and POC education re: balance ex Skilled Intervention: Educated on proper/safe technique for activities performed today. Activity progression based on professional judgment. Education on balance reactions and stimulating neuro system for improved balance reaction Neuromuscular Re-Education: 1: static and dynamic balance testing and facilitation 2: standing walking 10 MWT with and w/o head turns , and pt with mod decreased balance , 3: reachingacross body for facilbalance rxn 4: SLS and tandem stance exercises Skilled Intervention: Education in proprioceptive/kinesthetic awareness during standing, reaching, and dynamic activities. Education and demonstration for posture and positioning for tone management. Billing * Evaluation Low Complexity: 1 Unit Therapeutic Activity Treatment Minutes: 5 Neuromuscular Re-Education Treatment Minutes: 20 Skilled Treatment Time Minutes (timed and untimed codes): 55 Total Session Time (minutes): 55 Session Start Time : 1335 Session Stop Time : 1430 Corrina Jeff PT [facility] NoteHNO ID: [id number] Author: LENORA MORAN [facility]3]-PLATE GRAINER APPRENTICE Service: ? Author Type: Speech Language Pathologist Type: Progress Notes Filed: 05/18/2024 16:47 Note Text: Summary: SPEECH THERAPY EVALUATION Episode Visit Count: 1 Therapist That Will Accept/Oversee The Plan Of Care: LUISA Start of Care Date: 05/18/24 Onset Date: 04/30/24 Plan of Care Certification Date: 05/18/24 Next Certification Due Date: 06/17/24 Patient Identified by Name and Date of : Yes REHABILITATION AND SPORTS THERAPY COGNITIVE LINGUISTIC EVALUATION PLAN OF CARE: Impression: Functional communication without limitations in: Speech, Voice, Fluency Communication deficits identified: Cognitive-Linguistic deficits RECOMMENDATION: PLATE GRAINER APPRENTICE Recommendations: Outpatient Speech Therapy Results and Recommendations Discussed With: Patient Prognosis: Good Good: current objective clinical presentation, within-session changes at evaluation, good support system/ coping skills Goals for Episode of Care: created on 05/18/2024 through 07/15/24 EXPRESSIVE LANGUAGE GOALS -Demonstrate the use of taught strategies for effective WORD FINDING AND VERBAL EXPRESSION during conversations 95% of the time with minimal cues. -All goals to target the patient's overall ability to facilitate functional communication of ADL medical / social needs. COGNITIVE GOALS -Improve categorical naming tasks at a concrete and abstract level with 100% accuracy given minimal assist. -Improve money and time management tasks with 100% accuracy given minimal assist. -Complete visual reasoning/organization tasks with 100% accuracy given moderate , minimal assist. -Improve short term/prospective memory to 100% accuracy with use of compensatory strategies with moderate , minimal assist/cues. -All goals to target the patient's overall ability to facilitate functional cognitive linguistic skills. Planned Interventions, Frequency, and Duration: Planned Treatment Interventions: Patient / Caregiver Education/ Training, Cognitive-Linguistic Training (16425, [id number], [id number]), Expressive Language Training (01960, 97414) Current Frequency: 1x/week Duration: 8 weeks PLAN FOR NEXT VISIT: Written education for memory and attention strategies and support activities Patient demonstrates good understanding of plan of care and treatment. The above goals and plan of care were discussed and agreed upon by patient/family. SUBJECTIVE: Jimi Soto is a 58 year old male seen today for a diagnostic. Past Relevant Medical Conditions: Anxiety, Cerebral Vascular Accident, Depression, Kidney Problems Patient referred to via neurologist d/t cognitve changes over last several months with recent dx of Cerebral amyloid angiopathy resulting in cognitive communication changes.. Patient Goals: Improve thinking Prior Functional Level: Within Functional Limits PROMIS Scales 05/18/2024 04/24/2024 Speech Communication Score 62.5 Cognitve Function T-Score 34 (moderate dysfunction) T-scores: mean of general population = 50. 5 points is clinically meaningfully difference Percentiles provide an indication of how the patient's score ranks in relation to the general population. Higher percentile rankings indicate better function/quality of life. 50th percentile is the average of the general population and indicates half of respondents had a worse score. OBJECTIVE MEASURES WITH LEVEL OF FUNCTION: Portions of the following standardized testing were utilized in the evaluation of the patient: THE BRIEF COGNITIVE ASSESSMENT TOOL . Total BCAT? Score: 38 Impression: This BCAT? score is suggestive of Mild Cognitive Impairment (MCI). The BCAT? provides information about the probable MCI stage and the probable MCI subtype. Both are important for identifying individual strengths and weaknesses, determining actionable interventions, and creating a patient-centered plan of care. MCI is essentially a cognitive syndrome that may represent a pre-dementia phase. People with MCI have more cognitive impairment than those with normal cognition but less impairment than people living with dementia. Patients with MCI are at risk for developing dementia, especially Alzheimer's disease. Studies show that people with MCI are five or more times more likely to convert to Alzheimer's disease per year than people with no cognitive problems. Patients with MCI are often able to manage many of the complex tasks of daily living (IADL), such as shopping, laundry, transportation, medication, telephone, housekeeping, and finances. However, given memory problems and the high conversion rate to dementia, persons with this BCAT? score are at risk for specific problems in these areas, which could place them at some safet (more content not included)...[facility]01-21-2025 History of Present illness Narrative* LuisaLenora barriga, [facility]3]-PLATE GRAINER APPRENTICE - 05/18/2024 2:37 PM EST Summary: SPEECH THERAPY EVALUATION Images from the original note were not included. Episode Visit Count: 1 Therapist That Will Accept/Oversee The Plan Of Care: LUISA Start of Care Date: 05/18/24 Onset Date: 04/30/24 Plan of Care Certification Date: 05/18/24 Next Certification Due Date: 06/17/24 Patient Identified by Name and Date of : Yes REHABILITATION AND SPORTS THERAPY COGNITIVE LINGUISTIC EVALUATION PLAN OF CARE: Impression: Functional communication without limitations in: Speech, Voice, Fluency Communication deficits identified: Cognitive-Linguistic deficits RECOMMENDATION: PLATE GRAINER APPRENTICE Recommendations: Outpatient Speech Therapy Results and Recommendations Discussed With: Patient Prognosis: Good Good: current objective clinical presentation, within-session changes at evaluation, good support system/ coping skills Goals for Episode of Care: created on 05/18/2024 through 07/15/24 EXPRESSIVE LANGUAGE GOALS -Demonstrate the use of taught strategies for effective WORD FINDING AND VERBAL EXPRESSION during conversations 95% of the time with minimal cues. -All goals to target the patient's overall ability to facilitate functional communication of ADL medical / social needs. COGNITIVE GOALS -Improve categorical naming tasks at a concrete and abstract level with 100% accuracy given minimalassist. -Improve money and time management tasks with 100% accuracy given minimal assist. -Complete visual reasoning/organization tasks with 100% accuracy given moderate , minimal assist. -Improve short term/prospective memory to 100% accuracy with use of compensatory strategies with moderate , minimal assist/cues. -All goals to target the patient's overall ability to facilitate functional cognitive linguistic skills. Planned Interventions, Frequency, and Duration: Planned Treatment Interventions: Patient / Caregiver Education/ Training, Cognitive-Linguistic Training (60419, 11545, 85781), Expressive Language Training (87203, 21549) Current Frequency: 1x/week Duration: 8 weeks PLAN FOR NEXT VISIT: Written education for memory and attention strategies and support activities Patient demonstrates good understanding of plan of care and treatment. The above goals and plan of care were discussed and agreed upon by patient/family. SUBJECTIVE: Jimi Soto is a 58 year old male seen today for a diagnostic. Past Relevant Medical Conditions: Anxiety, Cerebral Vascular Accident, Depression, Kidney Problems Patient referred to via neurologist d/t cognitve changes over last several months with recent dxof Cerebral amyloid angiopathy resulting in cognitive communication changes.. Patient Goals: Improve thinking Prior Functional Level: Within Functional Limits PROMIS Scales 05/18/2024 04/24/2024 Speech Communication Score 62.5 Cognitve Function T-Score 34 (moderate dysfunction) T-scores: mean of general population = 50. 5 points is clinically meaningfully difference Percentiles provide an indication of how the patient's score ranks in relation to the general population. Higher percentile rankings indicate better function/quality of life. 50th percentile is the average of the general population and indicates half of respondents had a worse score. OBJECTIVE MEASURES WITH LEVEL OF FUNCTION: Portions of the following standardized testing were utilized in the evaluation of the patient: THE BRIEF COGNITIVE ASSESSMENT TOOL . Total BCAT Score: 38 Impression: This BCAT score is suggestive of Mild Cognitive Impairment (MCI). The BCAT provides information about the probable MCI stage and the probable MCI subtype. Both are important for identifying individual strengths and weaknesses, determining actionable interventions, and creating a patient-centered plan of care. MCI is essentially a cognitive syndrome that may represent a pre-dementia phase. People with MCI have more cognitive impairment than those with normal cognition but less impairment than people living with dementia. Patients with MCI are at risk for developing dementia, especially Alzheimer's disease. Studies showthat people with MCI are five or more times more likely to convert to Alzheimer's disease per year than people with no cognitive problems. Patients with MCI are often able to manage many of the complex tasks of daily living (IADL), such as shopping, laundry, transportation, medication, telephone, housekeeping, and finances. However, given memory problems and the high conversion rate to dementia, persons with this BCAT score are at risk for specific problems in these areas, which could place them at some safety risk if they are living in a situation without an appropriate level of direct support. There is often a thin line differentiating Stage 1 MCI from normal cognition. It is important toask the patient or a knowledgeable informant, direct questions about applied memory. Examples are: Have you been forgetful? Have you misplaced your keys, wallet, or glasses? Have you missed taking a dose of medication? Have you missed any appointments? Also, scores on any cognitive test can be influ enced by depression and anxiety. It is important to ask questions about mood functioning. One idea to keep in mind when working with patients who have MCI, and their families is that the term Mild Cognitive Disorder can be misleading. Often patients and families think that the word mild implies that the patient does not have a serious problem. Unfortunately, MCI is a serious health condition that can have far reaching implications for independence and everyday functioning. Education about this disorder is very important. Many clinicians have adopted the diagnostic term, Mild Neurocognitive Disorder (MND), in place of MCI. There is quite a bit of overlap between the two diagnoses, and many patients with BCAT scores consistent with MCI also meet criteria for MND. Probable MCI Stage: MCI Staging is based on total BCAT Test Scores. Stage 1 MCI reflects total BCAT Scores between 39-43 (inclusive). People with Stage 1 MCI have more subtle changes in cognition and functional performance than people with Stage 2 MCI. Also, people with Stage 1 MCI are less likely to progress to dementia and have a longer MCI timeline than people with Stage 2 MCI. Stage 2 MCI reflects total BCAT Scores between 34-38 (inclusive). People with Stage 2 MCI have moresignificant changes in cognition and functional performance than people with Stage 1 MCI. Also, people with Stage 2 MCI are more likely to progress to dementia and have a shorter MCI timeline than people with Stage 1 MCI. In fact, many people with Stage 2 MCI demonstrate cognitive and functional deficits similar to those with mild stage dementia. For people with scores consistent with MCI, the clinician may consider administration of the VerbalTest of Practical Judgment (VPJ ) to identify impairments in judgment that may impact safety and the ability to live independently. Probable Subtype: Undifferentiated Typically, there is one prominent cognitive problem, although there can be more than one. By far the most common problem is with memory. This is often referred to as amnestic MCI (aMCI). A true memory problem is prospective; that is, it involves the ability to make new memories and learn new things. This should not be confused with the ability to recall people, places, or events from the distant past. With aMCI, other cognitive skills tend to be generally normal or close to normal. Executive control functions (ECFs), such as judgment, planning, organization, and problem-solving, are typicallymostly intact. However, the Executive Control Functions Factor (ECFF) score should be taken into consideration, assome patients with MCI have ECF deficits. For example, there is a subtype of MCI called executive MCI (eMCI), where the primary problem is with executive functions, while memory is generally within normal limits. Some MCI patients have multiple cognitive problems, but do not meet criteria for dementia. This condition is called multi-domain MCI (mMCI). A fourth subtype is undifferentiated MCI. Patients with undifferentiated MCI tend to either be at the very early stage of MCI or have normal cognitive functioning at baseline but may be experiencing a medical problem negatively impacting cognition. Examples include UTI, pneumonia, and other infections. Total Contextual Memory Factor (CMF) Score: 14 The Contextual Memory Factor (CMF) indicates current verbal memory skills. It is highly predictive of cognitive diagnosis (MCI versus dementia) and instrumental activities of daily living (IADL). It is also sensitive to those who have amnestic MCI (and who do not have dementia). The score range is 0-15. Scores below 12 typically indicate significant memory concerns that can impact everyday living. A score of 14, combined with a total BCAT score in the MCI range, is often associated with [id number]. When this occurs, a review of executive functions and other cognitive domains may be helpful. Total Executive Control Functions Factor (ECFF) Score: 6 The Executive Control Functions Factor (ECFF) indicates current executive control functions abilities. There is a strong correlation between ECFF and predicting everyday activities of daily living, especially the higher order skills involving judgment, problem-solving, and reasoning. The score range is 0- 7. Scores below 5 generally indicate problems in executive control that could interfere with successful independent living. Some people have problems with executive functions but have relatively intact memory skills. When this occurs, the subtype of executive MCI may be indicated. Total Complex Attention Factor (CAF) Score: 8 Complex attention is an essential cognitive domain. It includes immediate, selective, and divided attention skills. It is highly associated with the ability to perform basic and complex activities ofdaily living. The Complex Attention Factor score (CAF) predicts ADL and IADL abilities and empirically measures the attentional skills necessary for independent functioning. Lower scores are associated with weaker performance, whereas higher scores suggest stronger abilities. Scores of 7-8 are within the normal/adequate range, and persons with these results may demonstrate higher levels of independence. Scores below 7 indicate likely attentional deficits, the need for more supervision or assistance, and higher risk for safety concerns and errors when completing basic or complex functional tasks. Please note that the CAF has a low performance threshold so most people should score in the adequate range. Total Cognitive Task [employer] (CTM) Score: 28 The Cognitive Task [employer] (CTM) integrates an individual s performance in three primary cognitive domains: contextual memory, executive control functions, and complex attention. Together, these skills are among the most powerful predictors of phan outcomes, including performance of basic and complex activities of daily living. The CTM score informs clinicians and families about impairments that ca n impact functional performance and highlight each individual s risk for falls and adverse events at home, rehospitalizations and the need for residential support. The CTM score should be considered as part of a comprehensive assessment and be used to guide treatment interventions that address these underlying skill areas and promote a safe and sustainable transition to the next level of care. The CTM is an important clinical tool that informs the plan of care and should be used to identify persons at higher risk for cognitively related functional deficits. When interpreting the CTM score,it is helpful to recognize what scores indicate normal functioning and what scores indicate higher risk. CTM scores in the 26-30 range are within normal limits. These patients have relatively low risk. CTM scores in the 20-25 range indicate moderate risk. CTM scores below 20 indicate relatively high risk. For patients with scores in the moderate or high- risk ranges, clinicians are advised to assess for functional deficits, home safety, and behavioral problems, creating person centered treatmentplans that address these phan areas of concern. For more detailed information about the CTM Score, review the [facility] Cognitive Task [employer] Crosswalk Table Speech/Voice/Language Speech Production: Within Functional Limits Expressive and Receptive Language: Within Functional Limits Except Verbal Expression Deficits: Expressing Complex Information, Convergent Naming, Divergent Naming, Responsive Naming Responsive Naming - (%): 85 Responsive Naming Cues Provided: Without Cues Convergent Naming - (%): 80 % Convergent Naming Cues Provided: Without Cues Divergent Naming - (%): 75 % Divergent Naming Cues Provided: Without Cues Expressing Complex Information - (%): 80 Expressing Complex Information Cues Provided: Without Cues Language Impairments Observed: Anomia, Pauses/Hesitations COGNITIVE-LINGUISTIC SKILLS Cognition Cognitive Status: Within Functional Limits For Current Session Except Cognitive Deficits: Attention Deficit, Memory Deficits, Executive Function Deficit Attention Deficit: Alternating, Divided, Selective Memory Deficits: Short Term Short Term Memory Comments: 50%; moderate-severe Executive Function Deficits: Reasoning/Inferences, Organization, Divergent Naming Reasoning/Inferences Comments: min-moderate Organization Comments: minimal Divergent Naming Comments : moderate; 75% Cognitive Clinical Tests and Screens: (Then Brief Cognitive Assessment Tool Mild Cognitive Impairment) Education: Education Learning Preferences: Explanation, Performance, Printed Materials, Demonstration Barriers: Cognitive Limitations, Emotions Learning/Educational Needs: Compensatory Strategies, Disease Process, Family Education/Training, Plan of Care, Rehabilitation Techniques and Procedures, Home Exercise Program Education Provided: Yes, see treatment interventions for education provided Education Provided To: Patient Education Mode/Type: Demonstration, Explanation/Discussion, Performance Response to Education/Teach Back: Requires Review/Additional Education TREATMENT: Evaluation: Eval Sound Production with Language Expression and Heat Treat Inspector ([id number]) Assigned Home Exercise Program: Current Home Program: TBD Current Home Program: TBD Billing: Eval Sound Production with Language Expression and Heat Treat Inspector ([id number]) Total time / Length of visit: 51 minutes Session Start Time : 3 Session Stop Time : 1524 STEPHANIE Ramirez documented in this [facility] NoteHNO ID: [id number] Author: KEL JOYA JR, MD Service: ? Author Type: Physician Type: Progress Notes Filed: 04/30/2024 14:14 Note Text: EW PATIENT (CONSULT) HISTORY AND PHYSICAL EXAM PRIMARY CARE PHYSICIAN: Alpesh Hill MD REASON FOR CONSULT: See below REFERRING PHYSICIAN: Rose Marie Johns APRN.C* CHIEF COMPLAINT: Speech, cognitive and gait changes. Consultation requested by Rose Marie Johns APRN.C* for an opinion regarding chief complaint of Patient presents with: New Patient Evaluation: Dizzy, abnormal gait, MRI/ MRA done 02/05, blurry vision, stutter, words coming out mixed up, trouble looking at words and saying them and my final recommendations will be communicated back to the requesting physician by way of shared medical record or letter via [place] mail. HISTORY OF PRESENT ILLNESS: Jimi Soto is a 58 year old male, BMI 33.49 kg/m2 with a PMH significant for that noted below. Due to CC, underwent MRI brain on 02/06/24 prior to this visit. Images reviewed and agree with billy report: No acute intracranial pathology. Innumerable chronic microhemorrhages, of uncertain etiology. No stenosis or occlusion in the head or neck. Patient lives by self. When asked why MRI completed, states had episode in which he stood up and... Dr. Hill''s TRANSPLANT COORDINATOR thought I was not right. States symptoms have been going on for a while. Patient does have a history of bipolar disorder since 1984 well managed. Slow processing, but over time cognition is declining per sister who accompanies him. Not on any blood thinners. No recurrent head traumas in recent years - long ago history of head trauma in kindergarten when fell off slide -- nothing recent. More difficulty putting words together. More difficulties expressing himself -- states language changes are all new. If went to a doctors appointment could not tell his sister what they told him at the appointment only hours later. No family history of neurologic disease except sister with epilepsy. Patient notes decline more so in the past 1 year. No issues driving. Patient reports that he remains independent. However, sister states pt not showering anymore. D/w psychiatry and they thought it might be due to Zyprexa and thus dose was reduced. No improvement in symptoms. Dizziness not described as true vertigo - at times lightheadedness, and other times staggers around. Vitamin B12 Date Value Ref Range Status 07/23/2023 880 232 - 1,245 pg/mL Final TSH Date Value Ref Range Status 07/23/2023 1.990 0.270 - 4.200 mIU/L Final Modified MOCA: Immediate recall: 08/30 Number repeat: 04/29 Sentence repeat: 05/30 Serial 7s: 04/30 Abstract: 04/29 Orientation: 10/01 Namin/3 Delayed Recall: 06/02 Cube copy: 0 Clock draw: 06/28 REVIEW OF SYSTEMS GENERAL:No weight loss, malaise or fevers. HEENT:Negative for frequent or significant headaches, No changes in hearing or vision, no nose bleeds or other nasal problems NECK:Negative for lumps, goiter, pain and significant neck swelling RESPIRATORY: Negative for cough, wheezing or shortness of breath. CARDIOVASCULAR: Negative for chest pain, leg swelling or palpitations. GASTROINTESTINAL: Negative for abdominal discomfort, blood in stools or black stools or change in bowel habits GENITOURINARY: No history of dysuria, frequency or incontinence MUSCULOSKELETAL: Negative for joint pain or swelling, back pain or muscle pain. NEUROLOGIC:See HPI. SKIN:Negative for lesions, rash, and itching. PSYCHIATRIC: See HPI. HEMATOLOGIC/LYMPHATIC/IMMUNOLOGIC:Negative for prolonged bleeding, bruising easily or swollen nodes. ENDOCRINE: Negative for cold or heat intolerance, polyuria, polydipsia and goiter. The remainder of the ROS was reviewed and is negative. LAB/IMAGING: Reviewed and include: WBC (k/uL) Date Value 03/03/2024 3.65 (L) RBC (m/uL) Date Value 03/03/2024 3.19 (L) Hemoglobin (g/dL) Date Value 03/03/2024 11.6 (L) Hematocrit (%) Date Value 03/03/2024 34.8 (L) MCV (fL) Date Value 03/03/2024 109.1 (H) MCH (pg) Date Value 03/03/2024 36.4 (H) MCHC (g/dL) Date Value 03/03/2024 33.3 RDW-CV (%) Date Value 03/03/2024 13.0 Platelet Count (k/uL) Date Value 03/03/2024 200 MPV (fL) Date Value 03/03/2024 10.1 Glucose (mg/dL) Date Value 03/03/2024 100 (H) BUN (mg/dL) Date Value 03/03/2024 17 Creatinine (mg/dL) Date Value 03/03/2024 1.42 (H) Sodium (mmol/L) Date Value 03/03/2024 141 Potassium (mmol/L) Date Value 03/03/2024 4.4 Chloride (mmol/L) Date Value 03/03/2024 105 CO2 (mmol/L) Date Value 03/03/2024 26 Protein, Total (g/dL) Date Value 03/03/2024 6.1 (L) Albumin (g/dL) Date Value 03/03/2024 4.0 Calcium, Total (mg/dL) Date Value 03/03/2024 9.1 Alkaline Phosphatase (U/L) Date Value 03/03/2024 71 Bilirubin, Total (mg/dL) Date Value 03/03/2024 <0.2 (L) AST (U/L) Date Value 11 (more content not included)...[facility]01-03-2025 History of Present illness Narrative* Kel Joya Jr., MD - 04/30/2024 1:05 PM EST EW PATIENT (CONSULT) HISTORY AND PHYSICAL EXAM PRIMARY CARE PHYSICIAN: Alpesh Hill MD REASON FOR CONSULT: See below REFERRING PHYSICIAN: Rose Marie Johns APRN.C* CHIEF COMPLAINT: Speech, cognitive and gait changes. Consultation requested by Rose Marie Johns APRN.C* for an opinion regarding chief complaint of Patient presents with: New Patient Evaluation: Dizzy, abnormal gait, MRI/ MRA done 02/05, blurry vision, stutter, words coming out mixed up, trouble looking at words and saying them and my final recommendations will be communicated back to the requesting physician by way of sharedmedical record or letter via [place] mail. HISTORY OF PRESENT ILLNESS: Jimi Soto is a 58 year old male, BMI 33.49 kg/m2 with a PMH significant for that noted below. Due to CC, underwent MRI brain on 02/06/24 prior to this visit. Images reviewed and agree with impressio of rad report: No acute intracranial pathology. Innumerable chronic microhemorrhages, of uncertain etiology. No stenosis or occlusion in the head or neck. Patient lives by self. When asked why MRI completed, states had episode in which he stood up and...Dr. Hill''s TRANSPLANT COORDINATOR thought I was not right. States symptoms have been going on for a while. Patient does have a history of bipolar disorder since 1984 well managed. Slow processing, but over time cognition is declining per sister who accompanies him. Not on any blood thinners. No recurrent head tr aumas in recent years - long ago history of head trauma in kindergarten when fell off slide -- nothing recent. More difficulty putting words together. More difficulties expressing himself -- states language changes are all new. If went to a doctors appointment could not tell his sister what they told him at the appointment only hours later. No family history of neurologic disease except sister with epilepsy. Patient notes decline more so in the past 1 year. No issues driving. Patient reports that he remains independent. However, sister states pt not showering anymore. D/w psychiatry and they thought it might be due to Zyprexa and thus dose was reduced. No improvement in symptoms. Dizziness not described as true vertigo - at times lightheadedness, and other times staggers around. Vitamin B12 Date Value Ref Range Status 07/23/2023 880 232 - 1,245 pg/mL Final TSH Date Value Ref Range Status 07/23/2023 1.990 0.270 - 4.200 mIU/L Final Modified MOCA: Immediate recall: 08/30 Number repeat: 04/29 Sentence repeat: 05/30 Serial 7s: 04/30 Abstract: 04/29 Orientation: 10/01 Namin/3 Delayed Recall: 06/02 Cube copy: 0 Clock draw: 06/28 REVIEW OF SYSTEMS GENERAL:No weight loss, malaise or fevers. HEENT:Negative for frequent or significant headaches, No changes in hearing or vision, no nose bleeds or other nasal problems NECK:Negative for lumps, goiter, pain and significant neck swelling RESPIRATORY: Negative for cough, wheezing or shortness of breath. CARDIOVASCULAR: Negative for chest pain, leg swelling or palpitations. GASTROINTESTINAL: Negative for abdominal discomfort, blood in stools or black stools or change in bowel habits GENITOURINARY: No history of dysuria, frequency or incontinence MUSCULOSKELETAL: Negative for joint pain or swelling, back pain or muscle pain. NEUROLOGIC:See HPI. SKIN:Negative for lesions, rash, and itching. PSYCHIATRIC: See HPI. HEMATOLOGIC/LYMPHATIC/IMMUNOLOGIC:Negative for prolonged bleeding, bruising easily or swollen nodes. ENDOCRINE: Negative for cold or heat intolerance, polyuria, polydipsia and goiter. The remainder of the ROS was reviewed and is negative. LAB/IMAGING: Reviewed and include: WBC (k/uL) Date Value 03/03/2024 3.65 (L) RBC (m/uL) Date Value 03/03/2024 3.19 (L) Hemoglobin (g/dL) Date Value 03/03/2024 11.6 (L) Hematocrit (%) Date Value 03/03/2024 34.8 (L) MCV (fL) Date Value 03/03/2024 109.1 (H) MCH (pg) Date Value 03/03/2024 36.4 (H) MCHC (g/dL) Date Value 03/03/2024 33.3 RDW-CV (%) Date Value 03/03/2024 13.0 Platelet Count (k/uL) Date Value 03/03/2024 200 MPV (fL) Date Value 03/03/2024 10.1 Glucose (mg/dL) Date Value 03/03/2024 100 (H) BUN (mg/dL) Date Value 03/03/2024 17 Creatinine (mg/dL) Date Value 03/03/2024 1.42 (H) Sodium (mmol/L) Date Value 03/03/2024 141 Potassium (mmol/L) Date Value 03/03/2024 4.4 Chloride (mmol/L) Date Value 03/03/2024 105 CO2 (mmol/L) Date Value 03/03/2024 26 Protein, Total (g/dL) Date Value 03/03/2024 6.1 (L) Albumin (g/dL) Date Value 03/03/2024 4.0 Calcium, Total (mg/dL) Date Value 03/03/2024 9.1 Alkaline Phosphatase (U/L) Date Value 03/03/2024 71 Bilirubin, Total (mg/dL) Date Value 03/03/2024 <0.2 (L) AST (U/L) Date Value 03/03/2024 17 ALT (U/L) Date Value 03/03/2024 11 Hep C Antibody IA (no units) Date Value 02/16/2018 Negative MEDICATIONS: fenofibrate nanocrystallized (TRICOR) 48 mg tablet^Take 1 tablet by mouth once daily.^Disp: 90 tablet^Rfl: 1 omeprazole (PRILOSEC) 20 mg capsule^Take 1 capsule by mouth daily before breakfast. 1/2 hr before meal.^Disp: 90 capsule^Rfl: 1 atorvastatin (LIPITOR) 80 mg tablet^Take 1 tablet by mouth once daily.^Disp: 90 tablet^Rfl: 1 docusate sodium (COLACE) 100 mg capsule^Take 100 mg by mouth twice daily.^Disp: ^Rfl: OLANZapine (ZYPREXA) 10 mg tablet^Take 2 tablets by mouth daily at bedtime.^Disp: ^Rfl: (Patient taking differently: Take 10 mg by mouth daily at bedtime.) lamoTRIgine (LAMICTAL) 200 mg tablet^Take 300 mg by mouth once daily. ^Disp: ^Rfl: clonazePAM (KLONOPIN) 1 mg tablet^Take 1 mg by mouth at bedtime as needed.^Disp: ^Rfl: zolpidem (AMBIEN) 10 mg tab^Take by mouth at bedtime as needed.^Disp: ^Rfl: venlafaxine XR (EFFEXOR XR) 150 mg tr24^Take by mouth once daily.^Disp: ^Rfl: DULoxetine (CYMBALTA) 60 mg capsule^Take 60 mg by mouth twice daily.^Disp: ^Rfl: FERROUS SULFATE (HIGH POTENCY IRON ORAL)^Take 1 tablet by mouth once daily.^Disp: ^Rfl: CARBATROL 300 MG 12 HR CAP^Take two capsules two(2) times daily. ^Disp: ^Rfl: 0 Dextromethorphan-guaiFENesin (TUSSIN DM MAX) 10-200 mg/5 mL liqd^Take 5 mL by mouth every 6 hours as needed.^Disp: ^Rfl: albuterol HFA (VENTOLIN HFA) 90 mcg/actuation inhaler^Inhale 2 Puffs as instructed every 4 hours asneeded for wheezing/shortness of breath.^Disp: 1 Each^Rfl: 1 fluticasone (FLONASE) 50 mcg/actuation nasal spray^Use 2 Sprays in each nostril once daily. Rinse mouth after use.^Disp: 1 Each^Rfl: 1 nystatin (NYSTOP) powder^Apply 1 application to affected area three times a day.^Disp: 30 g^Rfl: 0 cyanocobalamin (VITAMIN B-12) 500 mcg tablet^Take 2 tablets by mouth once daily.^Disp: ^Rfl: HISTORIES PAST MEDICAL HISTORY Diagnosis Date Allergy to environmental factors Dr. Fernandes Anemia Bipolar 1 disorder (HCC) Dr. Stahl Chronic kidney disease (CKD), stage III (moderate) ([facility]) Dr. Arthur Essential hypertension Family history of prostate cancer in father GERD (gastroesophageal reflux disease) Hx of gallstones s/p cholecystectomy Hyperlipidemia Internal hemorrhoids Irritable bowel syndrome Kidney dysfunction LBBB (left bundle branch block) incomplete. Negative echo in 2018. OA (osteoarthritis) of knee Obesity (BMI 30.0-34.9) FAMILY HISTORY Problem Relation Age of Onset Cancer Father prostate, skin cancer Hypertension Father Coronary Artery Disease Mother stroke and mi Diabetes Mother Heart Sister [place] age 50s Mental illness Brother suicide Mental illness Brother Heart Maternal Grandmother Diabetes Maternal Grandmother Breast Cancer Paternal Grandmother Mental illness Brother hunting accident SOCIAL HISTORY Social History Tobacco Use Smoking status: Never Smokeless tobacco: Never Substance Use Topics Alcohol use: No Drug use: No PHYSICAL EXAMINATION BP 145/89 (BP Site: Left Arm, BP Position: Sitting) Pulse 82 Wt 111.7 kg (246 lb 3.2 oz) [id number]% BMI 33.49 kg/m GENERAL EXAM: General appearance: NAD, pleasant. HEENT: NC/AT, nasal congestion absent, no oral lesions, membranes moist. NECK: No masses, supple. Lungs: CTA bilaterally. CV: RRR nl S1, S2. No carotid bruits. Extr: No cyanosis, clubbing or edema. Extremity pulses palpable and normal. Skin: Cool to touch. NEUROLOGICAL EXAM: General: Masked facies. Awake, alert, oriented x3 (person,place,time), fluent, no dysarthria; comprehension, naming, repetition intact. MOCA as above. CN: PERRL, fundi with no evidence of papilledema, EOMI and without nystagmus, VFF to confrontation,facial sensation and strength are normal and symmetric, hearing is intact to finger rub bilaterally, palate and tongue movements are intact and symmetric. SCM and trapezius strength normal. Motor: Normal tone, bulk and strength (5/5) bilaterally (throughout extremities x4). Coordination: FNF, AMANDA, HTS intact. No tremors. Sensation: Light touch, vibration, temperature intact throughout. No evidence of neglect. Gait: No difficulties rising from chair without assist of upper exts. Narrow based and stable with normal stride but kendrick decreased arm swing. Romberg normal. No retropulsion on pull testing. Assessment and Plan: ASSESSMENT/PLAN: 1. Cerebral hemorrhage (HCC) - ICD9: 431, ICD10: I61.9 (primary diagnosis) 2. Abnormal finding on MRI of brain - ICD9: 793.0, ICD10: R90.89 3. Cognitive decline - ICD9: 294.9, ICD10: R41.89 4. Cerebral amyloid angiopathy (CODE) - ICD9: 277.39, 437.9, ICD10: I68.0 5. Balance problems - ICD9: 781.99, ICD10: R26.89 Patient with abnormal finding of multiple cerebral micro hemorrhages involving all lobes as well ascerebellum. MRI brain finding in the setting of constellation of subjective neuro symptoms as above. Patient also with history of bipolar disorder and use of neuroleptics that could provoke cognitivesymptoms (I.e. pseudo dementia) as well as physical impairments (I.e. parkinsonism). Neuro exam unremarkable except for those cognitive deficits noted on MOCA above (mild) as well as masked facies, and changes in gait as per neuro exam above. Primary concern at this time is for Amyloid angiopathy which would explain micro hemorrhages; Amyloid is also associated with other disorders including Alzheimer's disease and Parkinson's. Discussed dx above in detail with patient and his sister including etiology, physiology, med conditions associated. Explained that there is no definitive diagnosis would be autopsy and that dx today is presumptive based on MRI brain and clinical symptoms. Also explained that there is no cure to this condition and treatment would be supportive. Did explain need for control of stroke/hemorrhage risk factors including proper mgmt of disorders such as HTN, DM, HLD, and avoiding other risks such as cigarettes, ETOH... Goal BP <140/90. Goal glucose <140. Advised that patient should avoid, if possible, medications such as anticoagulants as these could increase the risk of bleeding. I will get second opinion from Dr. [facility]avicencio at [facility]. However, if Dr. Villavicencio agrees, will continue to monitor and control risk factors here at [facility] with patient's PCP. Will consider startingdementia medication such as Namenda if symptoms were to worsen and if all other care providers agree. If patient develops more obvious symptoms of PD, then will need to consider lowering dosing of those meds that lower dopamine levels (used for mood disorders) or adding a medication such as Sinemetbut will need to be careful in doing so as either could result in worsening of mood. Pt and his sister agree with plan. Follow up 3 months or sooner prn. Kel Joya MD I spent a total of 62 minutes on the date of the service which included preparing to see the patient, [id number] patient care, completing clinical documentation, obtaining and/or reviewing separately obtained history, performing a medically appropriate examination, counseling and educating the pat ient/family/caregiver, ordering medications, tests, or procedures, independently interpreting results (not separately reported), and communicating results to the patient/family/caregiver. Note both MRI brain and MRA brain and carotids were reviewed with the patient and his sister duringvisit (actual images). documented in this encounterK[facility]11-30-[facility] Telephone encounter Note * Telephone Encounter - Verena Lindsey - 03/27/2024 10:54 AM EST Patient has been identified by name and date of : Yes, Provider Alpesh Hill Date 03/27/24 Time 11:00am Patient phones for refill(s): Requested Prescriptions Pending Prescriptions Disp Refills fenofibrate nanocrystallized (TRICOR) 48 mg tablet 90 tablet 1 Sig: Take 1 tablet by mouth once daily. Date of last office visit in primary care: Visit 02/23/24 Date of next office visit in primary care: Visit date 05/19/23 Please advise. Thank you. Verena Lindsey. [facility]11-30-[facility] Miscellaneous Notes* Telephone Encounter - Verena Lindsey - 03/27/2024 10:54 AM EST Patient has been identified by name and date of : Yes, Provider Alpesh Hill Date 03/27/24 Time 11:00am Patient phones for refill(s): Requested Prescriptions Pending Prescriptions Disp Refills fenofibrate nanocrystallized (TRICOR) 48 mg tablet 90 tablet 1 Sig: Take 1 tablet by mouth once daily. Date of last office visit in primary care: Visit 02/23/24 Date of next office visit in primary care: Visit date 05/19/23 Please advise. Thank you. Verena Lindsey. documented in this encounterK[facility]11-04-2024 Telephone encounter Note * Telephone Encounter - Crys King LPN - 03/01/2024 10:58 AM EST Forms to provider. Crys King LPN [facility] Miscellaneous Notes* Telephone Encounter - Crys King LPN - 03/01/2024 10:58 AM EST Forms to provider. Crys King LPN * Telephone Encounter - Alpesh Hill MD - 02/20/2024 12:50 PM EDT I will review the forms when I get them and see how often he is following up with our office and other providers to determine intermittent leave frequency. documented in this encounterK[facility]10-28-2024 Instructions* Patient Instructions* Alpesh Hill MD - 02/23/2024 9:57 AM EDT Please clean out your ears with Debrox drops on a monthly basis. You can get these over the counter. documented in this encounterK[facility]10-28-2024 History of Present illness Narrative* Crys King LPN - 02/23/2024 9:52 AM EDT Ambulatory Ear Lavage Pre-treatment: No pre-treatment Treatment: Both ears Equipment and Irrigation solution and Volume used: Single use syringe with single use irrigation tip 600 cc total volume warm water Return flow appearance: Brown Patient tolerated procedure: yes Tympanic membrane assessment: Tympanic membrane assessed by LIP pre and post procedure * Alpesh Hill MD - 02/23/2024 9:32 AM EDT Chief Complaint Patient presents with: Ear Problem: Bilateral ear pain x at least [address] Fernandes is out of office x 3 weeks unable to see him. HPI Jimi Soto is a 58 year old male who presents here today for Above Complaints. Patient complaining of bilateral ear pain and plugging which started about 1 week ago. Left ear worse than right. Not cleaning ears out at home. Denies hearing loss, drainage, fever/chills, nasal congestion, rhinorrhea, sore throat, cough, swollen glands. Past medical history, appointments, medications, allergies reviewed. Previous Medical History PAST MEDICAL HISTORY Diagnosis Date Allergy to environmental factors Dr. Fernandes Anemia Bipolar 1 disorder (HCC) Dr. Stahl Chronic kidney disease (CKD), stage III (moderate) ([facility]) Dr. Arthur Essential hypertension Family history of prostate cancer in father GERD (gastroesophageal reflux disease) Hx of gallstones s/p cholecystectomy Hyperlipidemia Internal hemorrhoids Irritable bowel syndrome Kidney dysfunction LBBB (left bundle branch block) incomplete. Negative echo in 2018. OA (osteoarthritis) of knee Obesity (BMI 30.0-34.9) Previous Surgical History PAST SURGICAL HISTORY Procedure Laterality Date APPENDECTOMY remotely COLONOSCOPY FLX DX W/COLLJ SPEC WHEN PFRMD 06/15/2014 Colonoscopy COLONOSCOPY SCREENING Bilateral 08/22/2022 ESOPHAGOGASTRODUODENOSCOPY TRANSORAL DIAGNOSTIC 06/15/2014 EGD INCISION & DRAINAGE ABSCESS SIMPLE/SINGLE both sides of face. KNEE SURGERY HX arthroscopic surgery for cartilage removal. unsure which knee L'SCOPE CHOLECYSTECTOMY 12/2021 Family History FAMILY HISTORY Problem Relation Age of Onset Cancer Father prostate, skin cancer Hypertension Father Coronary Artery Disease Mother stroke and mi Diabetes Mother Heart Sister [place] age 50s Mental illness Brother suicide Mental illness Brother Heart Maternal Grandmother Diabetes Maternal Grandmother Breast Cancer Paternal Grandmother Mental illness Brother hunting accident Patient Allergies ALLERGIES Allergen Reactions Biaxin [Clarithromy* Intolerance Depakote [Divalproe* Intolerance Ibuprofen Intolerance advil Latex Unknown Prozac [Fluoxetine * Intolerance Spectazole [Econazo* Intolerance Wellbutrin [Bupropi* Intolerance CAUSES [employer] STATE Current Medications Current Outpatient Medications on File Prior to Visit Medication Sig omeprazole (PRILOSEC) 20 mg capsule Take 1 capsule by mouth daily before breakfast. 1/2 hr before meal. atorvastatin (LIPITOR) 80 mg tablet Take 1 tablet by mouth once daily. Dextromethorphan-guaiFENesin (TUSSIN DM MAX) 10-200 mg/5 mL liqd Take 5 mL by mouth every 6 hours as needed. albuterol HFA (VENTOLIN HFA) 90 mcg/actuation inhaler Inhale 2 Puffs as instructed every 4 hours asneeded for wheezing/shortness of breath. fluticasone (FLONASE) 50 mcg/actuation nasal spray Use 2 Sprays in each nostril once daily. Rinse mouth after use. fenofibrate nanocrystallized (TRICOR) 48 mg tablet Take 1 tablet by mouth once daily. nystatin (NYSTOP) powder Apply 1 application to affected area three times a day. docusate sodium (COLACE) 100 mg capsule Take 100 mg by mouth twice daily. OLANZapine (ZYPREXA) 10 mg tablet Take 2 tablets by mouth daily at bedtime. (Patient taking differently: Take 10 mg by mouth daily at bedtime.) lamoTRIgine (LAMICTAL) 200 mg tablet Take 300 mg by mouth once daily. clonazePAM (KLONOPIN) 1 mg tablet Take 1 mg by mouth at bedtime as needed. zolpidem (AMBIEN) 10 mg tab Take by mouth at bedtime as needed. venlafaxine XR (EFFEXOR XR) 150 mg tr24 Take by mouth once daily. DULoxetine (CYMBALTA) 60 mg capsule Take 60 mg by mouth twice daily. FERROUS SULFATE (HIGH POTENCY IRON ORAL) Take 1 tablet by mouth once daily. cyanocobalamin (VITAMIN B-12) 500 mcg tablet Take 2 tablets by mouth once daily. CARBATROL 300 MG 12 HR CAP Take two capsules two(2) times daily. Current Facility-Administered Medications on File Prior to Visit Medication propofol injection (DIPRIVAN) Social History Social History Tobacco Use Smoking status: Never Smokeless tobacco: Never Substance Use Topics Alcohol use: No Drug use: No Review of Symptoms REVIEW OF SYSTEMS See HPI EXAM: BP 108/68 Pulse 70 Temp 36.7 C (98.1 F) Resp 16 Wt 108.7 kg (239 lb 9.6 oz) SpO2 97% BMI 32.60 kg/m General Appearance: Well appearing, alert, in no acute distress, well-hydrated, well nourished.. Skin: Skin color, texture, turgor normal, no suspicious rashes or lesions. Head: Normocephalic, no masses, lesions, tenderness or abnormalities. Eyes: Anicteric sclera. Pupils are equally round and reactive to light. Extraocular movements are intact. . Ears: Positive findings: cerumen bilaterally, amount Moderate. Nose/Sinuses: Nares normal, septum midline, mucosa normal, no drainage or sinus tenderness. Oropharynx: Lips, mucosa, and tongue normal, teeth and gums normal, oropharynx normal. Neck: Supple, no adenopathy; thyroid symmetric, normal size, no bruits. Lungs: Lungs clear to auscultation. No wheezing, rhonchi, rales.. Heart: RRR without murmur, gallop, or rubs. No ectopy. Health Maintenance List Depression Screening Never done Anxiety Screening Never done BP Controlled (<130/80) due on 04/02/2024 Colorectal Cancer Screening due on 06/15/2024 Prostate Cancer Screening Discussion due on 07/05/2024 Serum Creatinine due on 12/15/2024 Hemoglobin/Hematocrit due on 12/15/2024 Annual PCP Team Chronic Disease Visit due on 02/01/2025 Diabetes Screening due on 12/04/2026 DTaP,Tdap,Td Vaccine(2 - Td or Tdap) due on 01/18/2028 Lipid Screening due on 12/04/2028 RSV Vaccine(1 - 1-dose 75+ series) due on 2038 Influenza Vaccine Completed Hepatitis C Screening Completed HIV Screening Completed Shingrix Vaccine Completed Covid-19 Vaccine Completed ASSESSMENT/PLAN: 1. Bilateral impacted cerumen - ICD9: 380.4, ICD10: H61.23 (primary diagnosis) Irrigated successfully in office today. Patient states pain has resolved after irrigation. TMs normal. Discussed treatment with debrox drops monthly OTC to prevent wax buildup. - AMBULATORY EAR LAVAGE/IRRIGATION 2. Ear pain, bilateral - ICD9: 388.70, ICD10: H92.03 Resolved. - AMBULATORY EAR LAVAGE/IRRIGATION Alpesh Hill MD documented [facility] encounterK[facility] Telephone encounter Note * Telephone Encounter - Crys King LPN - 02/20/2024 3:21 PM EDT Phoned patient's sister and advised her paperwork has been received. Crys King LPN [facility]10-25-[facility]24 Miscellaneous Notes* Telephone Encounter - Crys King LPN - 02/20/2024 3:21 PM EDT Phoned patient's sister and advised her paperwork has been received. Crys King LPN * Telephone Encounter - Jewell Dunn LPN - 02/20/2024 10:18 AM EDT Patients sisters is wanting to make sure that we received the FMLA paperwork from [facility]. States thathave been challenging to work with and just wants to make sure we have it. Kelley is going to send some specific information that [facility] told he needed to be stated on the [facility] MyChart. She plans to send that this afternoon. documented in this encounterK[facility]10-25-2024 Telephone encounter Note * Telephone Encounter - Alpesh Hill MD - 02/20/2024 12:50 PM EDT I will review the forms when I get them and see how often he is following up with our office and other providers to determine intermittent leave frequency. [facility] Telephone encounter Note* Telephone Encounter - Jewell Dunn LPN - 02/20/2024 10:18 AM EDT Patients araceli is wanting to make sure that we received the FMLA paperwork from [facility]. States thathave been challenging to work with and just wants to make sure we have it. Kelley is going to send some specific information that [facility] told he needed to be stated on the [employer] MyChart. She plans to send that this afternoon. [facility] Telephone encounter Note* Telephone Encounter - Crys Miller LPN - 02/18/2024 3:28 PM EDT Spoke to pt's sister Kelley & she is very appreciative that pt's pcp will do this for her. Paperwork will be coming from [employer]. Crys Miller LPN [facility]10-[facility] Miscellaneous Notes* Telephone Encounter - Crys Miller LPN - 02/18/2024 3:28 PM EDT Spoke to pt's sister Kelley & she is very appreciative that pt's pcp will do this for her. Paperwork will be coming from [employer]. Crys Miller LPN * Telephone Encounter - Alpesh Hill MD - 02/18/2024 1:09 PM EDT I can fill out intermittent FMLA for this so she can take time off on the days of his appointment for transportation. Please allow 5-7 business days for completion. * Telephone Encounter - Tanisha Jo RN - 02/18/2024 12:54 PM EDT Kelley Sutton, phoned to let pcp know, you are going to be receiving forms to fill out, for cary take a caregiver leave, similar to FMLA, for sister's employer, in order for her to help take patient to his future appts. Kelley reports patient has an appt scheduled with a new psychiatrist, a counselor, and a neurologist in Apr 2024. Reports patient is having more cognitive issues this year, which may be related to all the medications he is taking. Reports patient was always a little slow, but always able to do more than he's been doing this year. Please phone Kelley with any questions: [phone] documented in this encounterK[facility]10-23-2024 Telephone encounter Note * Telephone Encounter - Alpesh Hill MD - 02/18/2024 1:09 PM EDT I can fill out intermittent FMLA for this so she can take time off on the days of his appointment for transportation. Please allow 5-7 business days for completion. [facility] Telephone encounter Note* Telephone Encounter - Tanisha Jo RN - 02/18/2024 12:54 PM EDT Kelley Sutton, phoned to let pcp know, you are going to be receiving forms to fill out, for cary take a caregiver leave, similar to FMLA, for sister's employer, in order for her to help take patient to his future appts. Kelley reports patient has an appt scheduled with a new psychiatrist, a counselor, and a neurologist in Apr 2024. Reports patient is having more cognitive issues this year, which may be related to all the medications he is taking. Reports patient was always a little slow, but always able to do more than he's been doing this year. Please phone Kelley with any questions: [phone] [facility] Telephone encounter Note* Telephone Encounter - Crys Miller LPN - 02/18/2024 9:33 AM EDT Pt is requesting we fax his MRI results from 02/06/[address] Stahl, his psychiatrist in [place].Faxed to [phone] as requested. Crys Miller LPN [facility] Miscellaneous Notes* Telephone Encounter - Crys Miller LPN - 02/18/2024 9:33 AM EDT Pt is requesting we fax his MRI results from 02/06/[address] Stahl, his psychiatrist in [place].Faxed to [phone] as requested. Crys Miller LPN documented in this encounterK[facility]10-11-2024 History of Present illness Narrative* Verna Guaman RT(Viviana) - 02/06/2024 2:20 PM EDT Radiology Service Progress Note PATIENT NAME: Jimi Soto DATE OF SERVICE: February 06, 2024 TIME: 2:31 PM PATIENT IDENTITY VERIFICATION COMPLETED USING TWO (2) IDENTIFIERS: Name and Date of confirmedby patient verbally. FALL SCREENING: Has the patient had 2 falls in the last year or 1 fall with injury or currently using an Ambulatory Assistive Device (Walker, Cane, Wheelchair, Crutches, etc.)? No PATIENT GENDER DATA: Male PATIENT RELEVANT IMPLANT DATA REVIEWED: Yes PATIENT PRESENTS WITH AN IMPLANTABLE OR ATTACHED PLASTIC INJECTION MOLD MAKER: No RADIOLOGY DEPARTMENT: MR; Exam(s) Completed: Head: Routine Brain [place] MRA Neck: Carotids MRA, bilateral PERIPHERAL IV DATA: Not applicable SIGNED BY: RT Manuela(Viviana) February 06, 2024 2:31 PM documented in this encounterK[facility]10-07-2024 History of Present illness Narrative* KristynlogarRose Marie APRN.TRANSPLANT COORDINATOR - 02/02/2024 12:40 PM EDT 01/30/2024 Patient presents with: Blood Pressure Check: Patient is experiencing lightheadedness and blurry vision on and off. Having increased speech difficulties with stuttering. SUBJECTIVE: This is a 58 year old that is here today for Above Complaints. Lisinopril stopped a last visit due to dizziness and unsteady gait and BP's lower. Does have scheduled MRI/MRA brain upcoming on 02/15. Still with lightheadedness at times. Admits to blurry vision onand off. Seems to be stuttering more. Has not discussed with his psychiatrist as he in in several ph ysiatric medications. Denies diplopia, visual loss, headaches, syncope, slurred speech, facai drooping, extremity numbness, tingling or weakness PAST MEDICAL HISTORY Diagnosis Date Allergy to environmental factors Dr. Fernandes Anemia Bipolar 1 disorder (HCC) Dr. Stahl Chronic kidney disease (CKD), stage III (moderate) (HCC) Dr. Arthur Essential hypertension Family history of prostate cancer in father GERD (gastroesophageal reflux disease) Hx of gallstones s/p cholecystectomy Hyperlipidemia Internal hemorrhoids Irritable bowel syndrome Kidney dysfunction LBBB (left bundle branch block) incomplete. Negative echo in 2018. OA (osteoarthritis) of knee Obesity (BMI 30.0-34.9) ALLERGIES Biaxin [Clarithromycin], Depakote [Divalproex Sodium], Ibuprofen, Latex, Prozac [Fluoxetine Hcl], Spectazole [Econazole Nitrate], and Wellbutrin [Bupropion Hcl] MEDICATIONS Current Outpatient Medications Medication Sig omeprazole (PRILOSEC) 20 mg capsule Take 1 capsule by mouth daily before breakfast. 1/2 hr before meal. atorvastatin (LIPITOR) 80 mg tablet Take 1 tablet by mouth once daily. Dextromethorphan-guaiFENesin (TUSSIN DM MAX) 10-200 mg/5 mL liqd Take 5 mL by mouth every 6 hours as needed. albuterol HFA (VENTOLIN HFA) 90 mcg/actuation inhaler Inhale 2 Puffs as instructed every 4 hours asneeded for wheezing/shortness of breath. fluticasone (FLONASE) 50 mcg/actuation nasal spray Use 2 Sprays in each nostril once daily. Rinse mouth after use. fenofibrate nanocrystallized (TRICOR) 48 mg tablet Take 1 tablet by mouth once daily. nystatin (NYSTOP) powder Apply 1 application to affected area three times a day. docusate sodium (COLACE) 100 mg capsule Take 100 mg by mouth twice daily. OLANZapine (ZYPREXA) 10 mg tablet Take 2 tablets by mouth daily at bedtime. lamoTRIgine (LAMICTAL) 200 mg tablet Take 300 mg by mouth once daily. clonazePAM (KLONOPIN) 1 mg tablet Take 1 mg by mouth at bedtime as needed. zolpidem (AMBIEN) 10 mg tab Take by mouth at bedtime as needed. venlafaxine XR (EFFEXOR XR) 150 mg tr24 Take by mouth once daily. DULoxetine (CYMBALTA) 60 mg capsule Take 60 mg by mouth twice daily. FERROUS SULFATE (HIGH POTENCY IRON ORAL) Take 1 tablet by mouth once daily. cyanocobalamin (VITAMIN B-12) 500 mcg tablet Take 2 tablets by mouth once daily. CARBATROL 300 MG 12 HR CAP Take two capsules two(2) times daily. Current Facility-Administered Medications Medication Dose Route Frequency perflutren lipid microspheres 1.3 mL in NaCl (PF) 0.9% 10 mL injection (DEFINITY) INTRAVENOUS DIRECTED PRN sodium chloride 0.9 % (flush) 10 mL (BD POSIFLUSH) 10 mL INTRAVENOUS DIRECTED PRN Facility-Administered Medications Ordered in Other Visits Medication Dose Route Frequency propofol injection (DIPRIVAN) INTRAVENOUS PRN Medications and allergies reviewed by this provider. SOCIAL HISTORY Social History Tobacco Use Smoking status: Never Smokeless tobacco: Never Substance Use Topics Alcohol use: No Drug use: No REVIEW OF SYSTEMS All other reviewed and negative other than HPI. OBJECTIVE: BP 118/84 Pulse 73 Resp 18 Wt 111 kg (244 lb 11.4 oz) SpO2 99% BMI 33.29 kg/m . Vital signs reviewed by this provider. APPEARANCE Well appearing, alert, in no acute distress, well-hydrated, well nourished. EYES PERRLA, conjunctiva and sclera normal. HEART RRR with normal S1 and S2, no murmurs, no gallops, no JVD appreciated LUNG clear to auscultation. No wheezes, rhonchi or rales Neuro: Awake, alert and oriented x 3, Cranial nerves II-XII grossly intact, Reflexes symmetrical, negative findings: speech normal, mental status intact, muscle tone normal, muscle strength normal, rapid alternating movements normal, finger to nose normal, sensation to light touch and pinprick normal, reflexes normal and symmetric, plantar response downgoing bilaterally, and positive findings: resting tremor, positive Romberg. Tandem gait normal, but unable to walk heel to toe without stumbling SKIN Skin color, texture, turgor normal, no suspicious rashes or lesions to exposed sk in Depression Screening Never done Anxiety Screening Never done Colorectal Cancer Screening due on 06/15/2024 Prostate Cancer Screening Discussion due on 07/05/2024 Serum Creatinine due on 12/15/2024 Hemoglobin/Hematocrit due on 12/15/2024 Annual PCP Team Chronic Disease Visit due on 01/01/2025 BP Controlled (<130/80) due on 01/01/2025 Diabetes Screening due on 12/04/2026 DTaP,Tdap,Td Vaccine(2 - Td or Tdap) due on 01/18/2028 Lipid Screening due on 12/04/2028 RSV Vaccine(1 - 1-dose 75+ series) due on 2038 Influenza Vaccine Completed Hepatitis C Screening Completed HIV Screening Completed Shingrix Vaccine Completed Covid-19 Vaccine Completed ASSESSMENT/PLAN: 1. Lightheadedness - ICD9: 780.4, ICD10: R42 (primary diagnosis) - patient is on several psychiatric medications so this may be the cause - he needs to talks to psychiatrist about his medications - no red flag symptoms or exam findings - red flag symptoms discussed, verbalizes understanding - no change in neuro assessment from a month ago - obtain MRI/MRA as scheduled to ER with red flag symptoms 2. Blurry vision - ICD9: 368.8, ICD10: H53.8 - plan as in #1 3. Speech disturbance, unspecified type - ICD9: 784.59, ICD10: R47.9 - no speech deficit noted today - plan as in #1 Rose Marie Simonsloglindy, SALES SOLUTIONS REPRESENTATIVE.TRANSPLANT COORDINATOR Prescription instructions reviewed with patient as applicable. Patient advised if symptoms do not improve or if symptoms worsen sooner, to contact their primary care physician. Potential red flag symptoms discussed with the patient. Reviewed appropriate action plan to take if red flag symptoms occur. Patient agreeable to treatment plan. Medical Decision Making: Problems: Moderate: New problem with uncertain prognosis Risk: Moderate: Moderate risk from testing/treatment Medical Decision Making Level: 4 - Moderate documented in this encounterK[facility]09-23-2024 Telephone encounter Note * Telephone Encounter - Iza Nunez - 01/19/2024 10:36 AM EDT Prescription Refill Information The patient has been identified by name and date of : Yes Caregiver verified no other encounters exist for this prescription request: Yes Caregiver confirmed with patient/requestor that no other refills are due, in the near future, with this provider at this time: Yes The last office visit in the department: Does the patient have a future office visit with this provider/department: No Requested Prescriptions Pending Prescriptions Disp Refills omeprazole (PRILOSEC) 20 mg capsule 90 capsule 1 Sig: Take 1 capsule by mouth daily before breakfast. 1/2 hr before meal. Iza Nunez January 19, 2024 10:39 AM [facility]09-23-2024 Miscellaneous Notes* Telephone Encounter - Iza Nunez - 01/19/2024 10:36 AM EDT Prescription Refill Information The patient has been identified by name and date of : Yes Caregiver verified no other encounters exist for this prescription request: Yes Caregiver confirmed with patient/requestor that no other refills are due, in the near future, with this provider at this time: Yes The last office visit in the department: Does the patient have a future office visit with this provider/department: No Requested Prescriptions Pending Prescriptions Disp Refills omeprazole (PRILOSEC) 20 mg capsule 90 capsule 1 Sig: Take 1 capsule by mouth daily before breakfast. 1/2 hr before meal. Iza Nunez January 19, 2024 10:39 AM documented in this encounterK[facility]09-17-2024 Telephone encounter Note * Telephone Encounter - Sarah Hodgson MA - 01/13/2024 1:12 PM EDT Orders faxed to [facility]. Sarah Hodgson MA [facility]09-17-2024 Miscellaneous Notes* Telephone Encounter - Sarah Hodgson MA - 01/13/2024 1:12 PM EDT Orders faxed to [facility]. Sarah Hodgson MA * Telephone Encounter - Litzy Avendaño - 01/13/2024 10:12 AM EDT Referrals for MRA/MRI appear to approved for [facility]. Please fax order to [facility]. * Telephone Encounter - Alicia Becker MA - 01/12/2024 3:53 PM EDT Can you review his referrals. They have been closed and they look like they are approved/authorized. Alicia Becker MA * Telephone Encounter - Peggy Morejon - 01/08/2024 3:03 PM EDT Patient has rescheduled MRI and MRAs to [facility] on 01/30/24. Referrals have been updated to initiate prior authorization process. Authorization and orders will need to be faxed to [facility] prior to appointment date. documented in this encounterK[facility]09-17-2024 Telephone encounter Note * Telephone Encounter - Litzy Avendaño - 01/13/2024 10:12 AM EDT Referrals for MRA/MRI appear to approved for [facility]. Please fax order to [facility]. [facility]09-16-[facility] Telephone encounter Note* Telephone Encounter - Alicia Becker MA - 01/12/2024 3:53 PM EDT Can you review his referrals. They have been closed and they look like they are approved/authorized. Alicia Becker MA [facility]09-12-2024 Telephone encounter Note* Telephone Encounter - Peggy Morejon - 01/08/2024 3:03 PM EDT Patient has rescheduled MRI and MRAs to [facility] on 01/30/24. Referrals have been updated to initiate prior authorization process. Authorization and orders will need to be faxed to [facility] prior to appointment date. [facility]09-09-[facility] Telephone encounter Note* Telephone Encounter - Rose Marie Johns APRN.CNP - 01/05/2024 7:19 AM EDT Reviewed. Rose Marie Johns APRN.CNP [facility]09-09-2024 Miscellaneous Notes* Telephone Encounter - Rose Marie Johns APRN.CNP - 01/05/2024 7:19 AM EDT Reviewed. Rose Marie Johns APRN.CNP * Telephone Encounter - Tracy Quezada LPN - 01/02/2024 3:13 PM EDT Patient sister Kelley returned call and went over notes below from Rose Marie Johns IRRIGATION FOREMAN. Sister said she has spoke to his counselor, who has has been with him 25 years. The counselor is reaching out to his Psychiatrist. Sister has tried to come to his appts and he is refusing her to be there, which she said is out of character for him. * Telephone Encounter - Leidy Magana LPN - 01/02/2024 3:02 PM EDT Telephone call placed to sister Kelley. Message left to call office back for update. Leidy Magana LPN * Telephone Encounter - Rose Marie Johns APRN.CNP - 01/02/2024 2:17 PM EDT Has she tried reaching out to psychiatry? Since I do not manage any of his psychiatric medications they should speak with psychiatry. Patient has a follow- up in one month with me. I encourage her to come with him to appointment. Rose Marie Johns APRN.TRANSPLANT COORDINATOR * Telephone Encounter - Tanisha Jo RN - 01/02/2024 2:01 PM EDT [facility] team messaged this nurse, to let me know patient phoned and gave permission to share medical information with sisterKelley, but does not know how to chart this. This nurse put this information in chart. Phoned sister Kelley, who reports she has been a nurse for 20 yrs, and is very concerned about patient's mental health. Reports patient is declining in his mental health. Reports patient has not taken a shower in years and has dry flaking skin on his arms. Reports patient is starting to get skin breakdown. Reports patient has not seen his psychiatrist, in person, in years. Patient's appointments with psychiatrist, Dr Kita Stahl, is via telephone, not a virtual visit. Reports patient has had mental illness for 40 years, but it seems worse lately. Kelley asking if Rose Marie could speak with the psychiatrist. Reports patient reports he is having trouble keeping his balance and with dizziness. Advised Kelley provider ordered MRI MRA brain, and MRA carotid, and discontinued lisinopril, and patient did report the dizziness and balance concern with provider. Kelley asking if Rose Marie Care Support Representative, would call her at [phone]. States she is all that patient has. * Telephone Encounter - Tanisha Jo RN - 01/02/2024 12:33 PM EDT Sister, Kelley, phoned with questions regarding patient's MRI order, stating he doesn't understand,and she is a nurse and wanted to be able to explain to patient. Left vm for patient, on his identified vm, asking if we can speak with his sister, Kelley, regarding his medical information. Asked patient to phone nurse with reply. Kelley would like a call back if patient agrees: [phone] documented in this encounterK[facility]09-06-2024 Telephone encounter Note * Telephone Encounter - Tracy Quezada LPN - 01/02/2024 3:13 PM EDT Patient sister Kelley returned call and went over notes below from Rose Marie Johns NP. Sister said she has spoke to his counselor, who has has been with him 25 years. The counselor is reaching out to his Psychiatrist. Sister has tried to come to his appts and he is refusing her to be there, which she said is out of character for him. [facility] Telephone encounter Note* Telephone Encounter - Leidy Magana LPN - 01/02/2024 3:02 PM EDT Telephone call placed to sister Kelley. Message left to call office back for update. Leidy Magana LPN [facility]09-06-[facility] Telephone encounter Note* Telephone Encounter - Rose Marie Johns APRN.CNP - 01/02/2024 2:17 PM EDT Has she tried reaching out to psychiatry? Since I do not manage any of his psychiatric medications they should speak with psychiatry. Patient has a follow- up in one month with me. I encourage her to come with him to appointment. Rose Marie Johns APRN.TRANSPLANT COORDINATOR [facility]09-06-[facility] Telephone encounter Note* Telephone Encounter - Tanisha Jo RN - 01/02/2024 2:01 PM EDT [facility] team messaged this nurse, to let me know patient phoned and gave permission to share medical information with sister, Kelley, but does not know how to chart this. This nurse put this information in chart. Phoned sister Kelley, who reports she has been a nurse for 20 yrs, and is very concerned about patient's mental health. Reports patient is declining in his mental health. Reports patient has not taken a shower in years and has dry flaking skin on his arms. Reports patient is starting to get skin breakdown. Reports patient has not seen his psychiatrist, in person, in years. Patient's appointments with psychiatrist, Dr Kita Stahl, is via telephone, not a virtual visit. Reports patient has had mental illness for 40 years, but it seems worse lately. Kelley asking if Rose Marie could speak with the psychiatrist. Reports patient reports he is having trouble keeping his balance and with dizziness. Advised Kelley provider ordered MRI MRA brain, and MRA carotid, and discontinued lisinopril, and patient did report the dizziness and balance concern with provider. Kelley asking if Hi Trotter, would call her at [phone]. States she is all that patient has. [facility]09-06-2024 Telephone encounter Note* Telephone Encounter - Tanisha Jo, RN - 01/02/2024 12:33 PM EDT Sister, Kelley, phoned with questions regarding patient's MRI order, stating he doesn't understand,and she is a nurse and wanted to be able to explain to patient. Left vm for patient, on his identified vm, asking if we can speak with his sister, Kelley, regarding his medical information. Asked patient to phone nurse with reply. Kelley would like a call back if patient agrees: [phone] [facility]09-06-2024 Instructions* Patient Instructions* Rose Marie Johns APRN.CNP - 01/02/2024 10:35 AM EDT Stop Lisinopril documented in this encounterK[facility]09-[facility] History of Present illness Narrative* Rose Marie Johns APRN.CNP - 01/02/2024 10:06 AM EDT 01/02/2024 Patient presents with: BP Check: Saw yuan doctor on 12/31/2023 and BP was low 100/62 HR 88. Patients states he's felt dizzy for some time and has been stumbly with his gate. Thinks it could possibly be related to medication. SUBJECTIVE: This is a 58 year old that is here today for Above Complaints.. Reports saw kidney doctor on 12/31/2023 and BP was low at 100/62. Does not routinely check BP at home. For years has had some dizziness and gait has been stumbly. Recently feels this is getting worse.Reports vision seems blurry at times and head feels funny but he is unable to actually describe what funny means. No aggravating events. Denies falls, headaches, tinnitus, hearing loss, diplopia,syncope, presyncope, slurred speech, facial drooping, extremity numbness, tingling or weakness. BP w/Orthostatic Vitals Date and Time Orthostatic BP Orthostatic Pulse BP Pulse BP Position BP Site BP Cuff Size 01/02/24 1028 111/75 83 -- -- Standing Right Arm -- 01/02/24 1026 112/71 77 -- -- Supine Right Arm -- 01/02/24 1005 -- -- 112/78 86 -- -- -- Peak Flow Date and Time PF Resp 01/02/24 1005 -- 18 PAST MEDICAL HISTORY No date: Allergy to environmental factors Comment: Dr. Fernandes No date: Anemia No date: Bipolar 1 disorder (HCC) Comment: Dr. Stahl No date: Chronic kidney disease (CKD), stage III (moderate) (HCC) Comment: Dr. Arthur No date: Essential hypertension No date: Family history of prostate cancer in father No date: GERD (gastroesophageal reflux disease) No date: Hx of gallstones Comment: s/p cholecystectomy No date: Hyperlipidemia No date: Internal hemorrhoids No date: Irritable bowel syndrome No date: Kidney dysfunction No date: LBBB (left bundle branch block) Comment: incomplete. Negative echo in 2018. No date: OA (osteoarthritis) of knee No date: Obesity (BMI 30.0-34.9) ALLERGIES Biaxin [Clarithromycin], Depakote [Divalproex Sodium], Ibuprofen, Latex, Prozac [Fluoxetine Hcl], Spectazole [Econazole Nitrate], and Wellbutrin [Bupropion Hcl] MEDICATIONS Current Outpatient Medications Medication Sig atorvastatin (LIPITOR) 80 mg tablet Take 1 tablet by mouth once daily. Dextromethorphan-guaiFENesin (TUSSIN DM MAX) 10-200 mg/5 mL liqd Take 5 mL by mouth every 6 hours as needed. albuterol HFA (VENTOLIN HFA) 90 mcg/actuation inhaler Inhale 2 Puffs as instructed every 4 hours asneeded for wheezing/shortness of breath. fluticasone (FLONASE) 50 mcg/actuation nasal spray Use 2 Sprays in each nostril once daily. Rinse mouth after use. lisinopril (ZESTRIL) 10 mg tablet Take 1 tablet by mouth once daily. fenofibrate nanocrystallized (TRICOR) 48 mg tablet Take 1 tablet by mouth once daily. omeprazole (PRILOSEC) 20 mg capsule Take 1 capsule by mouth daily before breakfast. 1/2 hr before meal. nystatin (NYSTOP) powder Apply 1 application to affected area three times a day. docusate sodium (COLACE) 100 mg capsule Take 100 mg by mouth twice daily. OLANZapine (ZYPREXA) 10 mg tablet Take 2 tablets by mouth daily at bedtime. lamoTRIgine (LAMICTAL) 200 mg tablet Take 300 mg by mouth once daily. clonazePAM (KLONOPIN) 1 mg tablet Take 1 mg by mouth at bedtime as needed. zolpidem (AMBIEN) 10 mg tab Take by mouth at bedtime as needed. venlafaxine XR (EFFEXOR XR) 150 mg tr24 Take by mouth once daily. DULoxetine (CYMBALTA) 60 mg capsule Take 60 mg by mouth twice daily. FERROUS SULFATE (HIGH POTENCY IRON ORAL) Take 1 tablet by mouth once daily. cyanocobalamin (VITAMIN B-12) 500 mcg tablet Take 2 tablets by mouth once daily. CARBATROL 300 MG 12 HR CAP Take two capsules two(2) times daily. Current Facility-Administered Medications Medication Dose Route Frequency perflutren lipid microspheres 1.3 mL in NaCl (PF) 0.9% 10 mL injection (DEFINITY) INTRAVENOUS DIRECTED PRN sodium chloride 0.9 % (flush) 10 mL (BD POSIFLUSH) 10 mL INTRAVENOUS DIRECTED PRN Facility-Administered Medications Ordered in Other Visits Medication Dose Route Frequency propofol injection (DIPRIVAN) INTRAVENOUS PRN Medications and allergies reviewed by this provider. SOCIAL HISTORY Social History Tobacco Use Smoking status: Never Smokeless tobacco: Never Substance Use Topics Alcohol use: No Drug use: No REVIEW OF SYSTEMS All other reviewed and negative other than HPI. OBJECTIVE: BP 112/78 Pulse 86 Resp 18 Wt 109.3 kg (240 lb 15.4 oz) SpO2 97% BMI 32.78 kg/m . Vital signs reviewed by this provider. APPEARANCE Well appearing, alert, in no acute distress, well-hydrated, well nourished. EYES PERRLA, conjunctiva and sclera normal. EARS External ears normal, canals clear NECK Supple, no adenopathy; thyroid symmetric, normal size, no bruits HEART RRR with normal S1 and S2, no murmurs, no gallops, no JVD appreciated LUNG clear to auscultation. No wheezes, rhonchi or rales EXTREMITIES Extremities normal, No deformities, No skin discoloration, No edema, and Normal pulses bilaterally. NEURO Awake, alert and oriented x 3, Cranial nerves II-XII grossly intact, Reflexes symmetrical, negative findings: speech normal, mental status intact, muscle tone normal, muscle strength normal, rapid alternating movements normal, finger to nose normal, sensation to light touch and pinprick normal, reflexes normal and symmetric, plantar response downgoing bilaterally, and positive findings: resting tremor, positive Romberg. Tandem gait normal, but unable to walk heel to toe without stumbling SKIN Skin color, texture, turgor normal, no suspicious rashes or lesions to exposed skin Depression Screening Never done Anxiety Screening Never done RSV Vaccine(1 - 1-dose 60+ series) Never done Colorectal Cancer Screening due on 06/15/2024 Prostate Cancer Screening Discussion due on 07/05/2024 Annual PCP Team Chronic Disease Visit due on 12/02/2024 BP Controlled (<130/80) due on 12/02/2024 Serum Creatinine due on 12/15/2024 Hemoglobin/Hematocrit due on 12/15/2024 Diabetes Screening due on 12/04/2026 DTaP,Tdap,Td Vaccine(2 - Td or Tdap) due on 01/18/2028 Lipid Screening due on 12/04/2028 Influenza Vaccine Completed Hepatitis C Screening Completed HIV Screening Completed Shingrix Vaccine Completed Covid-19 Vaccine Completed ASSESSMENT/PLAN: 1. Positive Romberg test - ICD9: 796.4, ICD10: R29.818 (primary diagnosis) - consider vascular stenosis vs bran mass vs stroke vs related to medications - looks like he had a negative Romberg in July when he was in for complaints of lightheadedness - no red flag symptoms or exam findings - red flag symptoms discussed, verbalizes understanding - MRI BRAIN WO IVCON - MRA BRAIN WO IVCON - MRA CAROTID WO IVCON 2. Unsteady gait - ICD9: 781.2, ICD10: R26.81 - would recommend cane or walker - MRI BRAIN WO IVCON - MRA BRAIN WO IVCON - MRA CAROTID WO IVCON - plan as in #1 3. Essential hypertension - ICD9: 401.9, ICD10: I10 - Controlled - normal orthos in office - Stop lisinopril - Recommend home blood pressure monitoring, to bring results to next visit - Encouraged sodium restriction, DASH or Mediterranean diet - Recommend regular aerobic exercise - Discussed need for and benefit of weight loss. BMI 32.78 kg/(m^2) - Follow up in 4 weeks for hypertension visit 4. Dizziness - ICD9: 780.4, ICD10: R42 - plan as in #1 and #2 - MRI BRAIN WO IVCON - MRA BRAIN WO IVCON - MRA CAROTID WO IVCON Rose Marie Johns APRN.TRANSPLANT COORDINATOR Prescription instructions reviewed with patient as applicable. Patient advised if symptoms do not improve or if symptoms worsen sooner, to contact their primary care physician. Potential red flag symptoms discussed with the patient. Reviewed appropriate action plan to take if red flag symptoms occur. Patient agreeable to treatment plan. Medical Decision Making: Problems: Moderate: New problem with uncertain prognosis Data: Unique test(s) ordered: 3+ Risk: Moderate: Drug management Medical Decision Making Level: 4 - Moderate documented in this encounterK[facility]08[facility] Telephone encounter Note * Telephone Encounter - Leidy Magana LPN - 12/17/2023 10:16 AM EDT Patient telephoned and advised of providers message. Voices understanding. Leidy Magana LPN [facility]08-21-2024 Miscellaneous Notes* Telephone Encounter - Leidy Magana LPN - 12/17/2023 10:16 AM EDT Patient telephoned and advised of providers message. Voices understanding. Leidy Magana LPN * Telephone Encounter - Rose Marie Johns APRN.CNP - 12/17/2023 10:07 AM EDT Discussed with Dr. Hill and he advises patient go to ER. Please call patient and advise. Rose Marie Johns APRN.CNP * Telephone Encounter - Chris Mcdowell - 12/04/2023 1:39 PM EDTSummary: patient encounter Pt came in saying he felt like he was losing blood. Has concerns about hemroids. Please contact patient and advise documented in this encounterK[facility]08-[facility]-2024 Telephone encounter Note * Telephone Encounter - Rose Marie Johns APRN.CNP - 12/17/2023 10:07 AM EDT Discussed with Dr. Hill and he advises patient go to ER. Please call patient and advise. Rose Marie Johns APRN.CNP [facility]08-21-2024 History of Present illness Narrative* Hiwot Purcell MD - 12/17/2023 9:32 AM EDT Virtualist Progress Note Triage Call I have communicated my name and active licensure. The patient's identity and physical location wereverified at the time of this visit. Either the patient or their legal patient admitting representative has been informed of the risks and benefits of -- and alternatives to -- treatment through a remote evaluation andconsents to proceed with the evaluation remotely. Triage source: Triage Call (Nurse Dancing Instructor, [facility] Triage, [facility] Triage, [facility] Phone Triage) Was patient downgraded (i.e. disposition other than go to the ED was advised)? Yes Mode of contact: Audio Only Visit History/Physical Exam: 58 yo male reports pain with inspiration x weeks in midchest. Not associated with exertion ? slight leg swelling, equal size, painless No SOB No history of clots No known FH clots Did not tolerate exercise stress test last year heart disease Saw IRRIGATION FOREMAN on Dec 02 for same. Nurse Triage Disposition (If call is from [facility], [facility] nurse triage, or an Express Care, the disposition is Go to ED Now): Go to ED Now Virtualist Recommended Disposition: See Provider within 24 hours Signed in as Primary Virtualist, Secondary Virtualist, or [facility] Telehealth provider: Secondary SIGNATURE: Hiwot Purcell MD PATIENT NAME: Jimi Soto DATE: December 17, 2023 documented in this encounterK[facility]08-[facility] Telephone encounter Note * Telephone Encounter - Samara Velasquez RN - 12/17/2023 9:16 AM EDT Reason For Call: Patient complaint - Hurts to breathe and when he touches chest Patient said he is having chest pain now in middle and left side of chest and has been constant since he woke up with morning at 7 AM. Initial onset of chest pain was a while ago, described as weeks ago. Patient has been dizzy and blames his bipolar medicine but not dizzy today. Denies numbness and tingling today Outcome: Disposition given to patient - Call EMS 911. Patient verbalized understanding of disposition but does not want to call an ambulance. Patient may drive self to an ED. Advised him not to drive self to an ED but can use an immediate drive. It is best to call 911 now. 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 Advised patient to call 911 but he did not commit. Patient said he was seen in the office for these symptoms. See 12/02 visit note Upheld disposition given and connected caller with rehab liaison virtualist Dr. Hiwot Purcell for second level triage. She advised he be seen within a day, today or tomorrow. Patient verbalized understanding of the doctor's advice. Gave patient Nurse Dancing Instructor closing (see very end Patient would like to make an appt with Dr. Hill. Advised use of ED if no appts available. Gave Nurse Dancing Instructor closing (see end of this encounter) [facility] and she gave him an appt at [facility] this afternoon. Reason for Disposition [1] Chest pain lasts > 5 minutes AND [2] age > 30 AND [3] one or more cardiac risk factors (e.g., diabetes, high blood pressure, high cholesterol, smoker, or strong family history of heart disease) History of HTN and high cholesterol per patient. Family history of heart disease Additional Information Negative: Shock suspected (e.g., cold/pale/clammy skin, too weak to stand, low BP, rapid pulse) Has not taken BP today Protocols used: Chest [id number]-GO Nurse Dancing Instructor closing was given as per below to patient after second level triage with Dr. Purcell. GO TO THE EMERGENCY ROOM OR CALL 911 IF: * You develop any new symptoms * Your condition worsens * You are concerned or anxious about your condition for any other reason. If you have any questions, you can call Nurse career information specialist back. [facility]08-21-2024 Miscellaneous Notes* Telephone Encounter - Samara Velasquez RN - 12/17/2023 9:16 AM EDT Reason For Call: Patient complaint - Hurts to breathe and when he touches chest Patient said he is having chest pain now in middle and left side of chest and has been constant since he woke up with morning at 7 AM. Initial onset of chest pain was a while ago, described as weeks ago. Patient has been dizzy and blames his bipolar medicine but not dizzy today. Denies numbness and tingling today Outcome: Disposition given to patient - Call EMS 911. Patient verbalized understanding of disposition but does not want to call an ambulance. Patient may drive self to an ED. Advised him not to drive self to an ED but can use an immediate drive. It is best to call 911 now. 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 Advised patient to call 911 but he did not commit. Patient said he was seen in the office for these symptoms. See 12/02 visit note Upheld disposition given and connected caller with rehab liaison virtualist Dr. Hiwot Purcell for second level triage. She advised he be seen within a day, today or tomorrow. Patient verbalized understanding of the doctor's advice. Gave patient Nurse Dancing Instructor closing (see very end Patient would like to make an appt with Dr. Hill. Advised use of ED if no appts available. Gave Nurse Dancing Instructor closing (see end of this encounter) Conferenced patient to Erna from [facility] and she gave him an appt at [facility] this afternoon. Reason for Disposition [1] Chest pain lasts > 5 minutes AND [2] age > 30 AND [3] one or more cardiac risk factors (e.g., diabetes, high blood pressure, high cholesterol, smoker, or strong family history of heart disease) History of HTN and high cholesterol per patient. Family history of heart disease Additional Information Negative: Shock suspected (e.g., cold/pale/clammy skin, too weak to stand, low BP, rapid pulse) Has not taken BP today Protocols used: Chest [id number] Nurse Dancing Instructor closing was given as per below to patient after second level triage with Dr. Purcell. GO TO THE EMERGENCY ROOM OR CALL 911 IF: * You develop any new symptoms * Your condition worsens * You are concerned or anxious about your condition for any other reason. If you have any questions, you can call Nurse career information specialist back. documented in this encounterK[facility]08-19-2024 Telephone encounter Note * Telephone Encounter - Leidy Magana LPN - 12/15/2023 9:24 AM EDT Patient was notified 12/10/2023; see result note. Leidy Magana LPN [facility]08-19-2024 Miscellaneous Notes* Telephone Encounter - Leidy Magana LPN - 12/15/2023 9:24 AM EDT Patient was notified 12/10/2023; see result note. Leidy Magana LPN * Telephone Encounter - Alpesh Hill MD - 12/13/2023 4:31 PM EDT Yes, see results tab for him. * Telephone Encounter - Alpesh Hill MD - 12/09/2023 12:24 PM EDT I will review them and let him know what the next step is for his labs. * Telephone Encounter - Tracy Quezada LPN - 12/09/2023 11:05 AM EDT Patient calling he did lab work for Dr Rudy Stahl on 12/05/2023 and did the Iron and Ferritin labs same day for PCP. Patient asking for results and if he needed to redo the labs since he did notwait until this week to get them done? Please advise documented in this encounterK[facility]08-17-2024 Telephone encounter Note * Telephone Encounter - Alpesh Hill MD - 12/13/2023 4:31 PM EDT Yes, see results tab for him. [facility]08-13-2024 Telephone encounter Note* Telephone Encounter - Alpesh Hill MD - 12/09/2023 12:24 PM EDT I will review them and let him know what the next step is for his labs. [facility]08-13-2024 Telephone encounter Note* Telephone Encounter - Tracy Quezada LPN - 12/09/2023 11:05 AM EDT Patient calling he did lab work for Dr Rudy Stahl on 12/05/2023 and did the Iron and Ferritin labs same day for PCP. Patient asking for results and if he needed to redo the labs since he did notwait until this week to get them done? Please advise [facility]08-08-2024 Telephone encounter Note* Telephone Encounter - Chris Mcdowell - 12/04/2023 1:39 PM EDTSummary: patient encounter Pt came in saying he felt like he was losing blood. Has concerns about hemroids. Please contact patient and advise [facility]08-08-2024 Telephone encounter Note* Telephone Encounter - Alissa Calderón RN - 12/04/2023 12:28 PM EDT Pt called and is notified of providers results and instructions. Pt voices understanding. Alissa Calderón RN [facility]08-08-2024 Miscellaneous Notes* Telephone Encounter - Alissa Calderón RN - 12/04/2023 12:28 PM EDT Pt called and is notified of providers results and instructions. Pt voices understanding. Alissa Calderón RN * Telephone Encounter - Alpesh Hill MD - 12/04/2023 12:22 PM EDT Blood work shows persistent macrocytic anemia with borderline low WBC. Previous workup for this wasunremarkable. I would recommend checking iron levels in the next week. documented in this encounterKet[facility]08-08-2024 Telephone encounter Note * Telephone Encounter - Alpesh Hill MD - 12/04/2023 12:22 PM EDT Blood work shows persistent macrocytic anemia with borderline low WBC. Previous workup for this wasunremarkable. I would recommend checking iron levels in the next week. [facility]08-07-[facility] History of Present illness Narrative* Podlogar, LAUREN Trotter.TRANSPLANT COORDINATOR - 12/03/2023 1:46 PM EDT 12/03/2023 Patient presents with: Dry Mouth: x 2 months, left side chest soreness to touch x 2 months SUBJECTIVE: This is a 58 year old that is here today for Above Complaints. Report left sided chest soreness for two months. Described as dull ache. Pain is daily and intermittent. Pain does not radiate. At times aggravated if he touches it. Has not used anything for pain. No recent trauma or accompanying lightheadedness, dizziness, SOB, dyspnea, palpitations, nausea, jaw or back pain Reports mouth a little drum drier than his usual. Fees increased thirst. Denies recent medication changes, visual changes, polyuria, dry eyes, nares or skin. Denies smoking, drinking caffeine, sugary drinks or ETOH PAST MEDICAL HISTORY No date: Allergy to environmental factors Comment: Dr. Fernandes No date: Anemia No date: Bipolar 1 disorder (HCC) Comment: Dr. Stahl No date: Chronic kidney disease (CKD), stage III (moderate) (HCC) Comment: Dr. Arthur No date: Essential hypertension No date: Family history of prostate cancer in father No date: GERD (gastroesophageal reflux disease) No date: Hx of gallstones Comment: s/p cholecystectomy No date: Hyperlipidemia No date: Internal hemorrhoids No date: Irritable bowel syndrome No date: Kidney dysfunction No date: LBBB (left bundle branch block) Comment: incomplete. Negative echo in 2018. No date: OA (osteoarthritis) of knee No date: Obesity (BMI 30.0-34.9) ALLERGIES Biaxin [Clarithromycin], Depakote [Divalproex Sodium], Ibuprofen, Latex, Prozac [Fluoxetine Hcl], Spectazole [Econazole Nitrate], and Wellbutrin [Bupropion Hcl] MEDICATIONS Current Outpatient Medications Medication Sig Dextromethorphan-guaiFENesin (TUSSIN DM MAX) 10-200 mg/5 mL liqd Take 5 mL by mouth every 6 hours as needed. albuterol HFA (VENTOLIN HFA) 90 mcg/actuation inhaler Inhale 2 Puffs as instructed every 4 hours asneeded for wheezing/shortness of breath. fluticasone (FLONASE) 50 mcg/actuation nasal spray Use 2 Sprays in each nostril once daily. Rinse mouth after use. lisinopril (ZESTRIL) 10 mg tablet Take 1 tablet by mouth once daily. atorvastatin (LIPITOR) 80 mg tablet Take 1 tablet by mouth once daily. fenofibrate nanocrystallized (TRICOR) 48 mg tablet Take 1 tablet by mouth once daily. omeprazole (PRILOSEC) 20 mg capsule Take 1 capsule by mouth daily before breakfast. 1/2 hr before meal. nystatin (NYSTOP) powder Apply 1 application to affected area three times a day. docusate sodium (COLACE) 100 mg capsule Take 100 mg by mouth twice daily. OLANZapine (ZYPREXA) 10 mg tablet Take 2 tablets by mouth daily at bedtime. lamoTRIgine (LAMICTAL) 200 mg tablet Take 300 mg by mouth once daily. clonazePAM (KLONOPIN) 1 mg tablet Take 1 mg by mouth at bedtime as needed. zolpidem (AMBIEN) 10 mg tab Take by mouth at bedtime as needed. venlafaxine XR (EFFEXOR XR) 150 mg tr24 Take by mouth once daily. DULoxetine (CYMBALTA) 60 mg capsule Take 60 mg by mouth twice daily. FERROUS SULFATE (HIGH POTENCY IRON ORAL) Take 1 tablet by mouth once daily. cyanocobalamin (VITAMIN B-12) 500 mcg tablet Take 2 tablets by mouth once daily. CARBATROL 300 MG 12 HR CAP Take two capsules two(2) times daily. Current Facility-Administered Medications Medication Dose Route Frequency perflutren lipid microspheres 1.3 mL in NaCl (PF) 0.9% 10 mL injection (DEFINITY) INTRAVENOUS DIRECTED PRN sodium chloride 0.9 % (flush) 10 mL (BD POSIFLUSH) 10 mL INTRAVENOUS DIRECTED PRN Facility-Administered Medications Ordered in Other Visits Medication Dose Route Frequency propofol injection (DIPRIVAN) INTRAVENOUS PRN Medications and allergies reviewed by this provider. SOCIAL HISTORY Social History Tobacco Use Smoking status: Never Smokeless tobacco: Never Substance Use Topics Alcohol use: No Drug use: No REVIEW OF SYSTEMS All other reviewed and negative other than HPI. OBJECTIVE: BP 110/70 Pulse 80 Temp 36.2 C (97.1 F) (Temporal) Resp 20 Wt 111.4 kg (245 lb 9.5 oz) BMI 33.41 kg/m . Vital signs reviewed by this provider. PHYSICAL EXAMINATION: General appearance: Well appearing, alert, in no acute distress, well-hydrated, well nourished. Skin: Skin color, texture, turgor normal, no suspicious rashes or lesions Eyes: Anicteric sclera. Oropharynx: Dentures and Lips, mucosa, and tongue normal,gums normal, oropharynx normal Neck: Supple, no adenopathy; thyroid symmetric, normal size Lungs: Lungs clear to auscultation. No wheezing, rhonchi, rales. Heart: RRR without murmur, gallop, or rubs. No ectopy. No TTP to chest wall Extremities: No deformities, edema, skin discoloration, clubbing or cyanosis. Good capillary refill. Depression Screening Never done Anxiety Screening Never done RSV Vaccine(1 - 1-dose 60+ series) Never done Influenza Vaccine(1) due on 12/28/2023 Colorectal Cancer Screening due on 06/15/2024 Prostate Cancer Screening Discussion due on 07/05/2024 Serum Creatinine due on 07/20/2024 Hemoglobin/Hematocrit due on 08/24/2024 Annual PCP Team Chronic Disease Visit due on 12/02/2024 BP Controlled (<130/80) due on 12/02/2024 Diabetes Screening due on 07/20/2026 DTaP,Tdap,Td Vaccine(2 - Td or Tdap) due on 01/18/2028 Lipid Screening due on 05/03/2028 Hepatitis C Screening Completed HIV Screening Completed Shingrix Vaccine Completed Covid-19 Vaccine Completed ASSESSMENT/PLAN: 1. Chest wall discomfort - ICD9: 786.52, ICD10: R07.89 (primary diagnosis) Atypical chest pain, symptoms are not consistent with cardiac ischemia due to nonexertional nature of symptom and localization of the pain possible etiology include Costochondritis/chest wall pain and musculoskeletal - discussed stress testing- patient decline at this time. He did attempt treadmill stress test lastyear but gait was to unsteady when tried to run so it was not completed, If he wants to proceed with stress testing would need to order non-treadmill - no red flag symptoms or exam findings - red flag symptoms discussed, verbalizes understanding - may use OTC pain relievers as directed on packaging and heat for 15 minutes at a time - Electrocardiogram: An ECG today showed normal sinus rhythm with 1 st degree AV block, incomplete LBBB at 66 BPM, MA interval 212 ms, incomplete left bundle branch block, normal ST-T, QT 394 ms - ECG COMPLETE - follow-up if fails to improve to ER with red flag symptoms 2. Dry mouth - ICD9: 527.7, ICD10: R68.2 - discussed measures to help with salivation - no red flag symptoms or exam findings - red flag symptoms discussed - will be getting A1c and CMP checked by psychiatry tomorrow Rose Marie Johns APRN.TRANSPLANT COORDINATOR Prescription instructions reviewed with patient as applicable. Patient advised if symptoms do not improve or if symptoms worsen sooner, to contact their primary care physician. Potential red flag symptoms discussed with the patient. Reviewed appropriate action plan to take if red flag symptoms occur. Patient agreeable to treatment plan. Medical Decision Making: Problems: Moderate: New problem with uncertain prognosis Data: Unique test(s) ordered: 1 Risk: Moderate: Moderate risk from testing/treatment Medical Decision Making Level: 4 - Moderate documented in this encounterK[facility] Telephone encounter Note * Telephone Encounter - Sarah Hodgson MA - 11/10/2023 10:33 AM EDT Pt notified of results via [employer]. Sarah Hodgson Ma ' [facility]07-15-[facility] Miscellaneous Notes* Telephone Encounter - Sarah Hodgson MA - 11/10/2023 10:33 AM EDT Pt notified of results via [employer]. Sarah Hodgson Ma ' * Telephone Encounter - Leidy Magana LPN - 11/07/2023 1:54 PM EDT Patient telephoned. Message left to call office back for update. Leidy Magana LPN * Telephone Encounter - Crys King LPN - 11/07/2023 1:06 PM EDT ----- Message from Alpesh Hill MD sent at 11/07/2023 9:40 AM EDT ----- US of the neck shows 1 cm simple cyst. Simple cysts are often benign. Unless this cyst is growing in size or it becomes painful, I would not recommend referral for removal at this point. Call if thisstarts to change or if he has any other concerns. documented in this encounterK[facility]07-12-[facility] Telephone encounter Note * Telephone Encounter - Leidy Magana LPN - 11/07/2023 1:54 PM EDT Patient telephoned. Message left to call office back for update. Leidy Magana LPN [facility]07-[facility] Telephone encounter Note* Telephone Encounter - Crys King LPN - 11/07/2023 1:06 PM EDT ----- Message from Alpesh Hill MD sent at 11/07/2023 9:40 AM EDT ----- US of the neck shows 1 cm simple cyst. Simple cysts are often benign. Unless this cyst is growing in size or it becomes painful, I would not recommend referral for removal at this point. Call if thisstarts to change or if he has any other concerns. [facility]07-[facility] History of Present illness Narrative* Alpesh Hill MD - 11/06/2023 11:00 AM EDT Chief Complaint Patient presents with: URI: Patient reports symptoms have improved.Stated he notices he has an intermittent dry cough thatlasts several minutes at times notices especially when he lays down. Follow Up: Patient following up d/t symptoms still lingering after completion of medication. HPI Jimi Soto is a 58 year old male who presents here today for Above Complaints.. Patient evaluated on 10/27 for complaint of URI symptoms with following HPI: Patient complaining of 2 weeks of productive cough with yellow sputum, rhinorrhea, nasal congestion, post nasal drip, headache, wheezing, chest pain with cough. Started Tussin DM Max last night without improvement in symptoms. Denies fever/chills, SOB, chest congestion, sore throat,new loss of taste/smell, nausea, vomiting, diarrhea, ear pain/fullness, swollen glands. No recent sick contacts or COVID exposure. Feels like symptoms are stable. Patient had an appointment with Dr. Fernadnes's office yesterday and they obtained a throat culture which took a few days to come back, but was negative. They were worried his lisinopril may be causing a cough. Diagnosed with viral bronchitis and URI with negative CXR. Started on albuterol, tessalon, and flonase and advised to f/u in 2-3 weeks if not improving. Since last OV, patient states that his symptoms are a lot better and he stopped medications for symptoms a couple days ago. He states that he is still getting an occasional dry cough at night without SOB, wheezing, chest pain, or chest congestion. Not treating with anything OTC. Seems like symptoms are continuing to improving. Also notes lymph node on right neck is still present. He thinks this has been there for months and would like to get it checked out. Past medical history, appointments, medications, allergies reviewed. Previous Medical History PAST MEDICAL HISTORY Diagnosis Date Allergy to environmental factors Dr. Fernandes Anemia Bipolar 1 disorder (HCC) Dr. Stahl Chronic kidney disease (CKD), stage III (moderate) ([facility]) Dr. Arthur Essential hypertension Family history of prostate cancer in father GERD (gastroesophageal reflux disease) Hx of gallstones s/p cholecystectomy Hyperlipidemia Internal hemorrhoids Irritable bowel syndrome Kidney dysfunction LBBB (left bundle branch block) incomplete. Negative echo in 2018. OA (osteoarthritis) of knee Obesity (BMI 30.0-34.9) Previous Surgical History PAST SURGICAL HISTORY Procedure Laterality Date APPENDECTOMY remotely COLONOSCOPY FLX DX W/COLLJ SPEC WHEN PFRMD 06/15/2014 Colonoscopy COLONOSCOPY SCREENING Bilateral 08/22/2022 ESOPHAGOGASTRODUODENOSCOPY TRANSORAL DIAGNOSTIC 06/15/2014 EGD INCISION & DRAINAGE ABSCESS SIMPLE/SINGLE both sides of face. KNEE SURGERY HX arthroscopic surgery for cartilage removal. unsure which knee L'SCOPE CHOLECYSTECTOMY 12/2021 Family History FAMILY HISTORY Problem Relation Age of Onset Cancer Father prostate, skin cancer Hypertension Father Coronary Artery Disease Mother stroke and mi Diabetes Mother Heart Sister [place] age 50s Mental illness Brother suicide Mental illness Brother Heart Maternal Grandmother Diabetes Maternal Grandmother Breast Cancer Paternal Grandmother Mental illness Brother hunting accident Patient Allergies ALLERGIES Allergen Reactions Biaxin [Clarithromy* Intolerance Depakote [Divalproe* Intolerance Ibuprofen Intolerance advil Latex Unknown Prozac [Fluoxetine * Intolerance Spectazole [Econazo* Intolerance Wellbutrin [Bupropi* Intolerance CAUSES CATATONIC STATE Current Medications Current Outpatient Medications on File Prior to Visit Medication Sig Dextromethorphan-guaiFENesin (TUSSIN DM MAX) 10-200 mg/5 mL liqd Take 5 mL by mouth every 6 hours as needed. albuterol HFA (VENTOLIN HFA) 90 mcg/actuation inhaler Inhale 2 Puffs as instructed every 4 hours asneeded for wheezing/shortness of breath. benzonatate (TESSALON PERLE) 100 mg capsule Take 1 capsule by mouth three times a day as needed forup to 10 days. fluticasone (FLONASE) 50 mcg/actuation nasal spray Use 2 Sprays in each nostril once daily. Rinse mouth after use. lisinopril (ZESTRIL) 10 mg tablet Take 1 tablet by mouth once daily. atorvastatin (LIPITOR) 80 mg tablet Take 1 tablet by mouth once daily. fenofibrate nanocrystallized (TRICOR) 48 mg tablet Take 1 tablet by mouth once daily. omeprazole (PRILOSEC) 20 mg capsule Take 1 capsule by mouth daily before breakfast. 1/2 hr before meal. nystatin (NYSTOP) powder Apply 1 application to affected area three times a day. docusate sodium (COLACE) 100 mg capsule Take 100 mg by mouth twice daily. OLANZapine (ZYPREXA) 10 mg tablet Take 2 tablets by mouth daily at bedtime. lamoTRIgine (LAMICTAL) 200 mg tablet Take 300 mg by mouth once daily. clonazePAM (KLONOPIN) 1 mg tablet Take 1 mg by mouth at bedtime as needed. zolpidem (AMBIEN) 10 mg tab Take by mouth at bedtime as needed. venlafaxine XR (EFFEXOR XR) 150 mg tr24 Take by mouth once daily. DULoxetine (CYMBALTA) 60 mg capsule Take 60 mg by mouth twice daily. FERROUS SULFATE (HIGH POTENCY IRON ORAL) Take 1 tablet by mouth once daily. cyanocobalamin (VITAMIN B-12) 500 mcg tablet Take 2 tablets by mouth once daily. CARBATROL 300 MG 12 HR CAP Take two capsules two(2) times daily. Current Facility-Administered Medications on File Prior to Visit Medication perflutren lipid microspheres 1.3 mL in NaCl (PF) 0.9% 10 mL injection (DEFINITY) sodium chloride 0.9 % (flush) 10 mL (BD POSIFLUSH) propofol injection (DIPRIVAN) Social History Social History Tobacco Use Smoking status: Never Smokeless tobacco: Never Substance Use Topics Alcohol use: No Drug use: No Review of Symptoms REVIEW OF SYSTEMS GENERAL: No weight loss, malaise or fevers RESPIRATORY: See HPI CARDIOVASCULAR: Negative for chest pain, leg swelling, hypertension, CHF or palpitations GI: No nausea, vomiting, or diarrhea SKIN: Negative for lesions, rash, and itching EXAM: BP 104/68 Pulse 71 Temp 36.6 C (97.9 F) Resp 16 Wt 108.3 kg (238 lb 12.8 oz) SpO2 98% BMI 32.49 kg/m General Appearance: Well appearing, alert, in no acute distress, well-hydrated, well nourished.. Skin: Skin color, texture, turgor normal, no suspicious rashes or lesions. Neck: Neck: Positive findings: right superficial cervical adenopathy with TTP located at the angle of the jaw. About the size of a burch luu. . Lungs: Lungs clear to auscultation. No wheezing, rhonchi, rales.. Heart: RRR without murmur, gallop, or rubs. No ectopy. Health Maintenance List Behavioral Health Screening Never done RSV Vaccine(1 - 1-dose 60+ series) Never done Influenza Vaccine(1) due on 12/28/2023 Colorectal Cancer Screening due on 06/15/2024 Prostate Cancer Screening Discussion due on 07/05/2024 Serum Creatinine due on 07/20/2024 Hemoglobin/Hematocrit due on 08/24/2024 BP Controlled (<130/80) due on 10/27/2024 Annual PCP Team Chronic Disease Visit due on 11/05/2024 Diabetes Screening due on 07/20/2026 DTaP,Tdap,Td Vaccine(2 - Td or Tdap) due on 01/18/2028 Lipid Screening due on 05/03/2028 Hepatitis C Screening Completed HIV Screening Completed Shingrix Vaccine Completed Covid-19 Vaccine Completed ASSESSMENT/PLAN: 1. Viral bronchitis - ICD9: 466.0, ICD10: J20.8 (primary diagnosis) Improving with occasional dry cough remaining. Refusing tessalon refill. Discussed OTC cough and cold medications for PRN use. 2. URI with cough and congestion - ICD9: 465.9, ICD10: J06.9 - Discussed viral etiology and rationale for treatment. - Symptomatic treatment with prn analgesia - Supportive care with fluids and rest - The patient may also use OTC cough and cold meds as needed. 3. Lymphadenopathy, cervical - ICD9: 785.6, ICD10: R59.0 Stable. Will obtain US to start evaluation due to his CKD. If needing additional imaging, will reach out to nephrology before contrast dye. - US HEAD/NECK SOFT TISSUE OTHER 4. Localized enlarged lymph nodes - ICD9: 785.6, ICD10: R59.0 - US HEAD/NECK SOFT TISSUE OTHER Alpesh Hill MD documented in this encounterK[facility]07-[facility] History of Present illness Narrative* Ruth Spain, RT(R) - 10/28/2023 1:30 PM EDT Radiology Service Progress Note PATIENT NAME: Jimi Soto DATE OF SERVICE: October 28, 2023 TIME: 1:53 PM PATIENT IDENTITY VERIFICATION COMPLETED USING TWO (2) IDENTIFIERS: Name and Date of confirmedby patient verbally. FALL SCREENING: Has the patient had 2 falls in the last year or 1 fall with injury or currently using an Ambulatory Assistive Device (Walker, Cane, Wheelchair, Crutches, etc.)? No PATIENT GENDER DATA: Male PATIENT RELEVANT IMPLANT DATA REVIEWED: Not Applicable PATIENT PRESENTS WITH AN IMPLANTABLE OR ATTACHED PLASTIC INJECTION MOLD MAKER: No RADIOLOGY DEPARTMENT: General X-ray: Exam(s) Completed: Chest X-Ray PERIPHERAL IV DATA: Not applicable SIGNED BY: RT Cuauhtemoc(R) October 28, 2023 1:53 PM documented in this encounterK[facility]07-02-[facility]24 History of Present illness Narrative* Alpesh Hill MD - 10/28/2023 1:04 PM EDT Chief Complaint Patient presents with: Cough: X 2 weeks HPI Jimi Soto is a 58 year old male who presents here today for Above Complaints. Patient complaining of 2 weeks of productive cough with yellow sputum, rhinorrhea, nasal congestion, post nasal drip, headache, wheezing, chest pain with cough. Started Tussin DM Max last night without improvement in symptoms. Denies fever/chills, SOB, chest congestion, sore throat,new loss of taste/smell, nausea, vomiting, diarrhea, ear pain/fullness, swollen glands. No recent sick contacts or COVID exposure. Feels like symptoms are stable. Patient had an appointment with Dr. Fernandes's office yesterday and they obtained a throat culture which took a few days to come back, but was negative. They were worried his lisinopril may be causing a cough. Past medical history, appointments, medications, allergies reviewed. Previous Medical History PAST MEDICAL HISTORY Diagnosis Date Allergy to environmental factors Dr. Fernandes Anemia Bipolar 1 disorder (HCC) Dr. Stahl Chronic kidney disease (CKD), stage III (moderate) (HCC) Dr. Arthur Essential hypertension Family history of prostate cancer in father GERD (gastroesophageal reflux disease) Hx of gallstones s/p cholecystectomy Hyperlipidemia Internal hemorrhoids Irritable bowel syndrome Kidney dysfunction LBBB (left bundle branch block) incomplete. Negative echo in 2018. OA (osteoarthritis) of knee Obesity (BMI 30.0-34.9) Previous Surgical History PAST SURGICAL HISTORY Procedure Laterality Date APPENDECTOMY remotely COLONOSCOPY FLX DX W/COLLJ SPEC WHEN PFRMD 06/15/2014 Colonoscopy COLONOSCOPY SCREENING Bilateral 08/22/2022 ESOPHAGOGASTRODUODENOSCOPY TRANSORAL DIAGNOSTIC 06/15/2014 EGD INCISION & DRAINAGE ABSCESS SIMPLE/SINGLE both sides of face. KNEE SURGERY HX arthroscopic surgery for cartilage removal. unsure which knee L'SCOPE CHOLECYSTECTOMY 12/2021 Family History FAMILY HISTORY Problem Relation Age of Onset Cancer Father prostate, skin cancer Hypertension Father Coronary Artery Disease Mother stroke and mi Diabetes Mother Heart Sister [place] age 50s Mental illness Brother suicide Mental illness Brother Heart Maternal Grandmother Diabetes Maternal Grandmother Breast Cancer Paternal Grandmother Mental illness Brother hunting accident Patient Allergies ALLERGIES Allergen Reactions Biaxin [Clarithromy* Intolerance Depakote [Divalproe* Intolerance Ibuprofen Intolerance advil Latex Unknown Prozac [Fluoxetine * Intolerance Spectazole [Econazo* Intolerance Wellbutrin [Bupropi* Intolerance CAUSES CATATONIC STATE Current Medications Current Outpatient Medications on File Prior to Visit Medication Sig Dextromethorphan-guaiFENesin (TUSSIN DM MAX) 10-200 mg/5 mL liqd Take 5 mL by mouth every 6 hours as needed. lisinopril (ZESTRIL) 10 mg tablet Take 1 tablet by mouth once daily. atorvastatin (LIPITOR) 80 mg tablet Take 1 tablet by mouth once daily. fenofibrate nanocrystallized (TRICOR) 48 mg tablet Take 1 tablet by mouth once daily. omeprazole (PRILOSEC) 20 mg capsule Take 1 capsule by mouth daily before breakfast. 1/2 hr before meal. nystatin (NYSTOP) powder Apply 1 application to affected area three times a day. docusate sodium (COLACE) 100 mg capsule Take 100 mg by mouth twice daily. OLANZapine (ZYPREXA) 10 mg tablet Take 2 tablets by mouth daily at bedtime. lamoTRIgine (LAMICTAL) 200 mg tablet Take 300 mg by mouth once daily. clonazePAM (KLONOPIN) 1 mg tablet Take 1 mg by mouth at bedtime as needed. zolpidem (AMBIEN) 10 mg tab Take by mouth at bedtime as needed. venlafaxine XR (EFFEXOR XR) 150 mg tr24 Take by mouth once daily. DULoxetine (CYMBALTA) 60 mg capsule Take 60 mg by mouth twice daily. FERROUS SULFATE (HIGH POTENCY IRON ORAL) Take 1 tablet by mouth once daily. cyanocobalamin (VITAMIN B-12) 500 mcg tablet Take 2 tablets by mouth once daily. CARBATROL 300 MG 12 HR CAP Take two capsules two(2) times daily. Current Facility-Administered Medications on File Prior to Visit Medication perflutren lipid microspheres 1.3 mL in NaCl (PF) 0.9% 10 mL injection (DEFINITY) sodium chloride 0.9 % (flush) 10 mL (BD POSIFLUSH) propofol injection (DIPRIVAN) Social History Social History Tobacco Use Smoking status: Never Smokeless tobacco: Never Substance Use Topics Alcohol use: No Drug use: No Review of Symptoms REVIEW OF SYSTEMS See HPI EXAM: BP 122/70 Pulse 87 Temp 36.1 C (97 F) Resp 16 Wt 107.6 kg (237 lb 3.2 oz) SpO2 93% BMI 32.27 kg/m General Appearance: Well appearing, alert, in no acute distress, well-hydrated, well nourished.. Skin: Skin color, texture, turgor normal, no suspicious rashes or lesions. Head: Normocephalic, no masses, lesions, tenderness or abnormalities. Eyes: Anicteric sclera. Pupils are equally round and reactive to light. Extraocular movements are intact. . Ears: External ears normal, canals clear. Nose/Sinuses: Nares normal, septum midline, mucosa normal, no drainage or sinus tenderness. Oropharynx: Lips, mucosa, and tongue normal, teeth and gums normal, oropharynx normal. Neck: Positive findings: right superficial cervical adenopathy without TTP. Lungs: Positive findings: rhonchi with mild wheezing bilaterally with good air entry. No consolidation. No rales. Heart: RRR without murmur, gallop, or rubs. No ectopy. Health Maintenance List Behavioral Health Screening Never done RSV Vaccine(1 - 1-dose 60+ series) Never done Influenza Vaccine(1) due on 12/28/2023 Colorectal Cancer Screening due on 06/15/2024 Prostate Cancer Screening Discussion due on 07/05/2024 Serum Creatinine due on 07/20/2024 Annual PCP Team Chronic Disease Visit due on 08/04/2024 BP Controlled (<130/80) due on 08/04/2024 Hemoglobin/Hematocrit due on 08/24/2024 Diabetes Screening due on 07/20/2026 DTaP,Tdap,Td Vaccine(2 - Td or Tdap) due on 01/18/2028 Lipid Screening due on 05/03/2028 Hepatitis C Screening Completed HIV Screening Completed Shingrix Vaccine Completed Covid-19 Vaccine Completed ASSESSMENT/PLAN: 1. Viral bronchitis - ICD9: 466.0, ICD10: J20.8 (primary diagnosis) Symptoms consistent with viral infection. With productive cough will obtain CXR to rule out PNA. Discussed supportive care. Start albuterol for wheezing and tessalon for cough and flonase for nasal congestion. Red flags for re-assessment reviewed with patient in detail. - XR CHEST 2V FRONTAL/LAT - ALBUTEROL SULFATE HFA 90 MCG/ACTUATION AEROSOL INHALER - BENZONATATE 100 MG CAPSULE - FLUTICASONE PROPIONATE 50 MCG/ACTUATION NASAL SPRAY,SUSPENSION 2. URI with cough and congestion - ICD9: 465.9, ICD10: J06.9 - Discussed viral etiology and rationale for treatment. - Symptomatic treatment with prn analgesia - Supportive care with fluids and rest - The patient may also use OTC cough and cold meds as needed and nasal saline gtts and suction prn. - XR CHEST 2V FRONTAL/LAT - ALBUTEROL SULFATE HFA 90 MCG/ACTUATION AEROSOL INHALER - BENZONATATE 100 MG CAPSULE - FLUTICASONE PROPIONATE 50 MCG/ACTUATION NASAL SPRAY,SUSPENSION 3. Lymphadenopathy, cervical - ICD9: 785.6, ICD10: R59.0 Burch luu sized nodule on right superficial cervical region just below angle of jaw. Advised patient to monitor at home and call if increasing in size, more TTP, or has not improved in 2-3 weeks. Alpesh Hill MD documented in this encounterK[facility]07-[facility] Telephone encounter Note * Telephone Encounter - Amina Mascorro RN - 10/28/2023 11:14 AM EDT Patient calls and states that he has had cold symptoms and a cough for about 2 weeks. Patient reports that he saw Dr. Fernandes and was told that heart medication may be the cause of his coughing. Patient states that he never had coughed before but does have cold symptoms. Patient scheduled with Dr. Hill today to discuss. Amina Mascorro RN [facility]07-[facility] Miscellaneous Notes* Telephone Encounter - Amina Mascorro RN - 10/28/2023 11:14 AM EDT Patient calls and states that he has had cold symptoms and a cough for about 2 weeks. Patient reports that he saw Dr. Fernandes and was told that heart medication may be the cause of his coughing. Patient states that he never had coughed before but does have cold symptoms. Patient scheduled with Dr. Hill today to discuss. Amina Mascorro RN documented in this encounterK[facility]04-30-[facility]24 Telephone encounter Note * Telephone Encounter - Sarah Hodgson MA - 08/26/2023 9:35 AM EDT Pt notified. Sarah Hodgson MA [facility]04-30-[facility] Miscellaneous Notes* Telephone Encounter - Sarah Hodgson MA - 08/26/2023 9:35 AM EDT Pt notified. Sarah Hodgson MA * Telephone Encounter - Alpesh Hill MD - 08/26/2023 9:12 AM EDT Stable mild anemia. WBC back to normal. Recent workup for anemia unremarkable. Recommend repeating CBC in about 3 months. documented in this encounterK[facility]04-30-2024 Telephone encounter Note * Telephone Encounter - Alpesh Hill MD - 08/26/2023 9:12 AM EDT Stable mild anemia. WBC back to normal. Recent workup for anemia unremarkable. Recommend repeating CBC in about 3 months. [facility] Instructions* Patient Instructions* Alpesh Hill MD - 08/05/2023 8:49 AM EDT You are due for repeat blood work at the beginning of August. Please come to the lab for this. You do not need an appointment. documented in this encounterK[facility]04-09-2024 History of Present illness Narrative* Alpesh Hill MD - 08/05/2023 8:37 AM EDT Chief Complaint Patient presents with: 2 week BP follow up HPI Jimi Soto is a 58 year old male who presents here today for Above Complaints.. At last OV, we discontinued patient's Lisinopril due to episodes of unsteady gait, lightheadedness,and tremors with borderline low BP. Today, patient states that he forgot to stop the lisinopril and continues to take 10 mg daily. Has not had any recurrent episodes of lightheadedness/dizziness, shaking/tremors, unsteady gait. BP in good range today. Patient states that his anemia may be related to blood with BM. States that he has hemorrhoids and gets blood on the toilet paper and bowl. Last episode of bleeding was in the last week. Small amountof bleeding. Denies SOB, pain with BM, abdominal pain, fever/chills, diarrhea, constipation. Patient had colonoscopy last year for this which was positive for internal hemorrhoids, but negative otherwise. Refusing rectal exam or repeat evaluation. Past medical history, appointments, medications, allergies reviewed. Previous Medical History PAST MEDICAL HISTORY Diagnosis Date Allergy to environmental factors Dr. Fernandes Anemia Bipolar 1 disorder (HCC) Dr. Stahl Chronic kidney disease (CKD), stage III (moderate) (HCC) Dr. Arthur Essential hypertension Family history of prostate cancer in father GERD (gastroesophageal reflux disease) Hx of gallstones s/p cholecystectomy Hyperlipidemia Irritable bowel syndrome Kidney dysfunction LBBB (left bundle branch block) incomplete. Negative echo in 2018. OA (osteoarthritis) of knee Obesity (BMI 30.0-34.9) Previous Surgical History PAST SURGICAL HISTORY Procedure Laterality Date APPENDECTOMY remotely COLONOSCOPY FLX DX W/COLLJ SPEC WHEN PFRMD 06/15/2014 Colonoscopy COLONOSCOPY SCREENING Bilateral 08/22/2022 ESOPHAGOGASTRODUODENOSCOPY TRANSORAL DIAGNOSTIC 06/15/2014 EGD INCISION & DRAINAGE ABSCESS SIMPLE/SINGLE both sides of face. KNEE SURGERY HX arthroscopic surgery for cartilage removal. unsure which knee L'SCOPE CHOLECYSTECTOMY 12/2021 Family History FAMILY HISTORY Problem Relation Age of Onset Cancer Father prostate, skin cancer Hypertension Father Coronary Artery Disease Mother stroke and mi Diabetes Mother Heart Sister [place] age 50s Mental illness Brother suicide Mental illness Brother Heart Maternal Grandmother Diabetes Maternal Grandmother Breast Cancer Paternal Grandmother Mental illness Brother hunting accident Patient Allergies ALLERGIES Allergen Reactions Biaxin [Clarithromy* Intolerance Depakote [Divalproe* Intolerance Ibuprofen Intolerance advil Latex Unknown Prozac [Fluoxetine * Intolerance Spectazole [Econazo* Intolerance Wellbutrin [Bupropi* Intolerance CAUSES CATATONIC STATE Current Medications Current Outpatient Medications on File Prior to Visit Medication Sig atorvastatin (LIPITOR) 80 mg tablet Take 1 tablet by mouth once daily. fenofibrate nanocrystallized (TRICOR) 48 mg tablet Take 1 tablet by mouth once daily. omeprazole (PRILOSEC) 20 mg capsule Take 1 capsule by mouth daily before breakfast. 1/2 hr before meal. nystatin (NYSTOP) powder Apply 1 application to affected area three times a day. docusate sodium (COLACE) 100 mg capsule Take 100 mg by mouth twice daily. OLANZapine (ZYPREXA) 10 mg tablet Take 2 tablets by mouth daily at bedtime. lamoTRIgine (LAMICTAL) 200 mg tablet Take 300 mg by mouth once daily. clonazePAM (KLONOPIN) 1 mg tablet Take 1 mg by mouth at bedtime as needed. zolpidem (AMBIEN) 10 mg tab Take by mouth at bedtime as needed. venlafaxine XR (EFFEXOR XR) 150 mg tr24 Take by mouth once daily. DULoxetine (CYMBALTA) 60 mg capsule Take 60 mg by mouth twice daily. FERROUS SULFATE (HIGH POTENCY IRON ORAL) Take 1 tablet by mouth once daily. cyanocobalamin (VITAMIN B-12) 500 mcg tablet Take 2 tablets by mouth once daily. CARBATROL 300 MG 12 HR CAP Take two capsules two(2) times daily. Current Facility-Administered Medications on File Prior to Visit Medication perflutren lipid microspheres 1.3 mL in NaCl (PF) 0.9% 10 mL injection (DEFINITY) sodium chloride 0.9 % (flush) 10 mL (BD POSIFLUSH) propofol injection (DIPRIVAN) Social History Social History Tobacco Use Smoking status: Never Smokeless tobacco: Never Substance Use Topics Alcohol use: No Drug use: No Review of Symptoms REVIEW OF SYSTEMS GENERAL: No weight loss, malaise or fevers RESPIRATORY: Negative for cough, hemoptysis, wheezing, COPD, dyspnea or shortness of breath CARDIOVASCULAR: Negative for chest pain, leg swelling, hypertension, CHF or palpitations GI: No nausea, vomiting, or diarrhea SKIN: Negative for lesions, rash, and itching EXAM: BP 126/66 Pulse 78 Resp 16 Wt 109.5 kg (241 lb 6.4 oz) SpO2 99% BMI 32.84 kg/m General Appearance: Well appearing, alert, in no acute distress, well-hydrated, well nourished.. Skin: Skin color, texture, turgor normal, no suspicious rashes or lesions. Lungs: Lungs clear to auscultation. No wheezing, rhonchi, rales.. Heart: RRR without murmur, gallop, or rubs. No ectopy. Abdomen: Normal abdominal exam, Abdomen soft, non-tender. Bowel sounds normal. No masses, organomegaly. Extremities: No deformities, edema, skin discoloration, clubbing or cyanosis. Good capillary refill. . Rectal: refused by patient. Health Maintenance List Behavioral Health Screening Never done RSV Vaccine(1 - 1-dose 60+ series) Never done Colorectal Cancer Screening due on 06/15/2024 Prostate Cancer Screening Discussion due on 07/05/2024 Annual PCP Team Chronic Disease Visit due on 07/20/2024 Serum Creatinine due on 07/20/2024 BP Controlled (<130/80) due on 07/20/2024 Hemoglobin/Hematocrit due on 07/22/2024 Diabetes Screening due on 07/20/2026 DTaP,Tdap,Td Vaccine(2 - Td or Tdap) due on 01/18/2028 Lipid Screening due on 05/03/2028 Influenza Vaccine Completed Hepatitis C Screening Completed HIV Screening Completed Shingrix Vaccine Completed Covid-19 Vaccine Completed Data reviewed Latest Ref Rng 07/21/2023 07/23/2023 WBC 3.70 - 11.00 k/uL 5.33 RBC 4.20 - 6.00 m/uL 3.24 (L) Hemoglobin 13.0 - 17.0 g/dL 11.8 (L) Hematocrit 39.0 - 51.0 % 35.2 (L) MCV 80.0 - 100.0 fL 108.6 (H) MCH 26.0 - 34.0 pg 36.4 (H) MCHC 30.5 - 36.0 g/dL 33.5 RDW-CV 11.5 - 15.0 % 13.2 Platelet Count 150 - 400 k/uL 243 MPV 9.0 - 12.7 fL 10.5 Neut% % 28.9 Abs Neut (ANC) 1.45 - 7.50 k/uL 1.54 Lymph% % 55.9 Abs Lymph 1.00 - 4.00 k/uL 2.98 Adams% % 11.3 Abs Adams <0.87 k/uL 0.60 Eosin% % 2.8 Abs Eosin <0.46 k/uL 0.15 Baso% % 0.9 Abs Baso <0.11 k/uL 0.05 Immature Gran % % 0.2 IMMATURE GRANS (ABS) <0.10 k/uL <0.03 NRBC /100 WBC 0.0 Absolute nRBC <0.01 k/uL <0.01 DTYPE Auto Protein, Total 6.3 - 8.0 g/dL 6.6 Albumin 3.9 - 4.9 g/dL 4.3 Calcium 8.5 - 10.2 mg/dL 9.8 Bilirubin, Total 0.2 - 1.3 mg/dL 0.2 Alkaline Phosphatase 38 - 113 U/L 77 AST 14 - 40 U/L 22 ALT 10 - 54 U/L 13 Glucose 74 - 99 mg/dL 104 (H) BUN 9 - 24 mg/dL 16 Creatinine 0.73 - 1.22 mg/dL 1.47 (H) Sodium 136 - 144 mmol/L 140 Potassium 3.7 - 5.1 mmol/L 4.6 Chloride 97 - 105 mmol/L 106 (H) CO2 22 - 30 mmol/L 25 Anion Gap 9 - 18 mmol/L 9 eGFR >=60 mL/min/1.73m 54 (L) Retic % 0.4 - 2.0 % 1.8 Abs Retic 0.018 - 0.100 M/uL 0.059 Vitamin B12 232 - 1,245 pg/mL 880 Folate >4.7 ng/mL 13.6 Copper 70 - 140 ug/dL 91 TSH 0.270 - 4.200 mIU/L 1.990 ASSESSMENT/PLAN: 1. Episodic lightheadedness - ICD9: 780.4, ICD10: R42 (primary diagnosis) Resolved. Continue current regimen. Call if symptoms return. 2. Unsteady gait when walking - ICD9: 781.2, ICD10: R26.81 Resolved. Continue current regimen. 3. Essential hypertension - ICD9: 401.9, ICD10: I10 - Controlled - Continue current medications - Recommend home blood pressure monitoring, to bring results to next visit - Encouraged sodium restriction, DASH or Mediterranean diet - Recommend regular aerobic exercise 4. BRBPR (bright red blood per rectum) - ICD9: 569.3, ICD10: K62.5 Obtain FOBT. Discussed increased fiber and water intake, use of OTC stool softeners and miralax forconstipation. Call with worsening symptoms. Recheck CBC in 1 month. - FECAL OCCULT BLOOD TEST Alpesh Hill MD documented [facility] Miscellaneous Notes* Telephone Encounter - Alpesh Hill MD - 07/28/2023 1:55 PM EDT Reviewed. * Telephone Encounter - Crys King LPN - 07/28/2023 12:16 PM EDT Phoned patient and reviewed provider's message with him. Advised patient that if he thought balanceissues might be related to BP that he picker feeder a BP cuff for at home and check daily. Patient advised he can't afford a BP cuff at present time. Patient does have follow up BP appt 08/05/23 and he confirms he will make the appointment. * Telephone Encounter - Alpesh Hill MD - 07/28/2023 10:21 AM EDT Stable macrocytic anemia. WBC very slightly low today, but was normal with last check. Other cell lines normal. Vitamin levels and other labs are all normal. The elevated MCV level may be attributed to his omeprazole, but I do not have a good explanation for his mild anemia. I would recommend close monitoring at this point with repeat blood work in about 1 month. * Telephone Encounter - Crys King LPN - 07/25/2023 2:03 PM EDT Phoned patient and he has not checked his BP at home since he does not have an at home BP cuff. Patient asking about the additional labs results that were drawn as patient didn't hear anything back from us. Advised patient that provider would be updated and we will get back with him once provider responds. * Telephone Encounter - Alpesh Hill MD - 07/25/2023 10:29 AM EDT Has he checked his blood pressure when he feels off balance? * Telephone Encounter - Amina Mascorro RN - 07/25/2023 10:22 AM EDT Patient calls and states that he still is having balance issues. Patient had labs done on 07/23/2023. Patient asking about results of lab work. Patient wondering if balance issues are due to low blood pressure? Patient reports that he has has issues with hemorrhoids. Please review and advise, Amina Mascorro RN documented in this encounterK[facility]03-26-[facility]24 Miscellaneous Notes* Telephone Encounter - Leidy Magana LPN - 07/22/2023 6:19 PM EDT Patient notified of results and recommendations. Voices understanding. Leidy Magana LPN * Telephone Encounter - Alpesh Hill MD - 07/22/2023 1:11 PM EDT Blood work shows mild macrocytic anemia. Labs otherwise normal/stable. Recommend additional labs to work this up further. Please come in this week for blood work. documented in this encounterK[facility]03-25-[facility]24 History of Present illness Narrative* Alpesh Hill MD - 07/21/2023 9:06 AM EDT Chief Complaint Patient presents with: unsteady gait Dizziness: Lightheaded Tremor Refill Request: All meds ordered by PCP need filled HPI Jimi Soto is a 58 year old male who presents here today for Above Complaints. Patient complaining of 1-2 episodes of unsteady gait, lightheadedness, and tremors in the last week. States that the staggering gait and lightheaded lasted less than 5 minutes without fall or head injury. Did not occur after standing suddenly. Also reports an episode where he was conscious and whole body was shaking for less than a couple ofminutes. Admits that his allergies have been bad recently. Tolerating PO diet. Denies headaches, vision changes, slurred speech, facial droop, numbness/tingling/weakness, chest pain, palpations, nausea, vomiting, diarrhea, bleeding symptoms. No recent change in medication or diet. Does not check BP at home. States recent weight loss is from not having teeth for a period of time and improved diet. Past medical history, appointments, medications, allergies reviewed. Previous Medical History PAST MEDICAL HISTORY Diagnosis Date Allergy to environmental factors Dr. Fernandes Anemia Bipolar 1 disorder (HCC) Dr. Stahl Chronic kidney disease (CKD), stage III (moderate) ([facility]) Dr. Arthur Essential hypertension Family history of prostate cancer in father GERD (gastroesophageal reflux disease) Hx of gallstones s/p cholecystectomy Hyperlipidemia Irritable bowel syndrome Kidney dysfunction LBBB (left bundle branch block) incomplete. Negative echo in 2018. OA (osteoarthritis) of knee Obesity (BMI 30.0-34.9) Previous Surgical History PAST SURGICAL HISTORY Procedure Laterality Date APPENDECTOMY remotely COLONOSCOPY FLX DX W/COLLJ SPEC WHEN PFRMD 06/15/2014 Colonoscopy COLONOSCOPY SCREENING Bilateral 08/22/2022 ESOPHAGOGASTRODUODENOSCOPY TRANSORAL DIAGNOSTIC 06/15/2014 EGD INCISION & DRAINAGE ABSCESS SIMPLE/SINGLE both sides of face. KNEE SURGERY HX arthroscopic surgery for cartilage removal. unsure which knee L'SCOPE CHOLECYSTECTOMY 12/2021 Family History FAMILY HISTORY Problem Relation Age of Onset Cancer Father prostate, skin cancer Hypertension Father Coronary Artery Disease Mother stroke and mi Diabetes Mother Heart Sister [place] age 50s Mental illness Brother suicide Mental illness Brother Heart Maternal Grandmother Diabetes Maternal Grandmother Breast Cancer Paternal Grandmother Mental illness Brother hunting accident Patient Allergies ALLERGIES Allergen Reactions Biaxin [Clarithromy* Intolerance Depakote [Divalproe* Intolerance Ibuprofen Intolerance advil Latex Unknown Prozac [Fluoxetine * Intolerance Spectazole [Econazo* Intolerance Wellbutrin [Bupropi* Intolerance CAUSES CATATONIC STATE Current Medications Current Outpatient Medications on File Prior to Visit Medication Sig lisinopril (ZESTRIL) 10 mg tablet Take 1 tablet by mouth once daily. fenofibrate nanocrystallized (TRICOR) 48 mg tablet Take 1 tablet by mouth once daily. atorvastatin (LIPITOR) 80 mg tablet Take 1 tablet by mouth once daily. omeprazole (PRILOSEC) 20 mg capsule Take 1 capsule by mouth daily before breakfast. 1/2 hr before meal. nystatin (NYSTOP) powder Apply 1 application to affected area three times a day. docusate sodium (COLACE) 100 mg capsule Take 100 mg by mouth twice daily. OLANZapine (ZYPREXA) 10 mg tablet Take 2 tablets by mouth daily at bedtime. lamoTRIgine (LAMICTAL) 200 mg tablet Take 300 mg by mouth once daily. clonazePAM (KLONOPIN) 1 mg tablet Take 1 mg by mouth at bedtime as needed. zolpidem (AMBIEN) 10 mg tab Take by mouth at bedtime as needed. venlafaxine XR (EFFEXOR XR) 150 mg tr24 Take by mouth once daily. DULoxetine (CYMBALTA) 60 mg capsule Take 60 mg by mouth twice daily. FERROUS SULFATE (HIGH POTENCY IRON ORAL) Take 1 tablet by mouth once daily. cyanocobalamin (VITAMIN B-12) 500 mcg tablet Take 2 tablets by mouth once daily. CARBATROL 300 MG 12 HR CAP Take two capsules two(2) times daily. Current Facility-Administered Medications on File Prior to Visit Medication perflutren lipid microspheres 1.3 mL in NaCl (PF) 0.9% 10 mL injection (DEFINITY) sodium chloride 0.9 % (flush) 10 mL (BD POSIFLUSH) propofol injection (DIPRIVAN) Social History Social History Tobacco Use Smoking status: Never Smokeless tobacco: Never Substance Use Topics Alcohol use: No Drug use: No Review of Symptoms REVIEW OF SYSTEMS See HPI EXAM: BP 102/70 Pulse 65 Resp 16 Wt 104.2 kg (229 lb 12.8 oz) SpO2 97% BMI 31.26 kg/m General Appearance: Well appearing, alert, in no acute distress, well-hydrated, well nourished.. Skin: Skin color, texture, turgor normal, no suspicious rashes or lesions. Ears: Moderate cerumen bilaterally. TMs normal without effusion. Neck: no carotid bruits. Lungs: Lungs clear to auscultation. No wheezing, rhonchi, rales.. Heart: RRR without murmur, gallop, or rubs. No ectopy. Neurologic: Negative findings: speech normal, mental status intact, cranial nerves 2-12 intact, gait, including heel, toe, and tandem walking normal, Romberg negative, muscle tone normal, muscle strength normal, sensation to light touch and pinprick normal, reflexes normal and symmetric, no tremor at rest or with outstretched hands. Health Maintenance List Depression Assessment due on 04/28/2023 RSV Vaccine(1 - 1-dose 60+ series) Never done Annual PCP Team Chronic Disease Visit due on 04/02/2024 BP Controlled (<130/80) due on 04/02/2024 Serum Creatinine due on 05/03/2024 Hemoglobin/Hematocrit due on 05/03/2024 Colorectal Cancer Screening due on 06/15/2024 Prostate Cancer Screening Discussion due on 07/05/2024 Diabetes Screening due on 05/03/2026 DTaP,Tdap,Td Vaccine(2 - Td or Tdap) due on 01/18/2028 Lipid Screening due on 05/03/2028 Influenza Vaccine Completed Hepatitis C Screening Completed HIV Screening Completed Shingrix Vaccine Completed Covid-19 Vaccine Completed Data reviewed Latest Ref Rng 05/03/2023 WBC 3.70 - 11.00 k/uL 5.04 RBC 4.20 - 6.00 m/uL 3.70 (L) Hemoglobin 13.0 - 17.0 g/dL 13.3 Hematocrit 39.0 - 51.0 % 39.0 MCV 80.0 - 100.0 fL 105.4 (H) MCH 26.0 - 34.0 pg 35.9 (H) MCHC 30.5 - 36.0 g/dL 34.1 RDW-CV 11.5 - 15.0 % 12.3 Platelet Count 150 - 400 k/uL 219 MPV 9.0 - 12.7 fL 10.5 Neut% % 42.4 Abs Neut (ANC) 1.45 - 7.50 k/uL 2.14 Lymph% % 43.5 Abs Lymph 1.00 - 4.00 k/uL 2.19 Adams% % 10.3 Abs Adams <0.87 k/uL 0.52 Eosin% % 2.8 Abs Eosin <0.46 k/uL 0.14 Baso% % 0.8 Abs Baso <0.11 k/uL 0.04 Immature Gran % % 0.2 IMMATURE GRANS (ABS) <0.10 k/uL <0.03 NRBC /100 WBC 0.0 Absolute nRBC <0.01 k/uL <0.01 DTYPE Auto Protein, Total 6.3 - 8.0 g/dL 6.5 Albumin 3.9 - 4.9 g/dL 4.5 Calcium 8.5 - 10.2 mg/dL 9.3 Bilirubin, Total 0.2 - 1.3 mg/dL 0.3 Alkaline Phosphatase 38 - 113 U/L 78 AST 14 - 40 U/L 29 ALT 10 - 54 U/L 23 Glucose 74 - 99 mg/dL 117 (H) BUN 9 - 24 mg/dL 21 Creatinine 0.73 - 1.22 mg/dL 1.41 (H) Sodium 136 - 144 mmol/L 140 Potassium 3.7 - 5.1 mmol/L 4.4 Chloride 97 - 105 mmol/L 104 CO2 22 - 30 mmol/L 25 Anion Gap 9 - 18 mmol/L 11 eGFR >=60 mL/min/1.73m 57 (L) Cholesterol, Total <200 mg/dL 144 Triglyceride <150 mg/dL 150 (H) HDL Cholesterol >39 mg/dL 41 Non HDL Cholesterol <130 mg/dL 103 Fasting Time hrs 12 VLDL Cholesterol <30 mg/dL 30 (H) TC:HDL Ratio <5.10 3.51 LDL Cholesterol <100 mg/dL 73 LDL:HDL Ratio <2.54 1.78 Hemoglobin A1C 4.3 - 5.6 % 5.4 Estimated Average Glucose mg/dL 108 Carbamazepine, Free 0.8 - 2.4 ug/mL 1.9 ASSESSMENT/PLAN: 1. Episodic lightheadedness - ICD9: 780.4, ICD10: R42 (primary diagnosis) Normal exam today. Noted borderline low BP which may be contributing. Obtain labs and stop lisinopril. Will recheck BP and symptoms again in 2 weeks. Red flags for re-assessment reviewed with patientin detail. - CBC + DIFF - COMP METABOLIC PANEL 2. Unsteady gait when walking - ICD9: 781.2, ICD10: R26.81 See above. 3. Shaking - ICD9: 781.0, ICD10: R25.1 Normal exam today. Discussed may be side effect from psych medications. Will discuss with psychiatry at their upcoming appointment. Alpesh Hill MD documented in this encounterK[facility]02-12-2024 Miscellaneous Notes* Telephone Encounter - Catarina Toussaint LPN - 06/09/2023 4:54 PM EST JARRED 04/02/2023 Next appointment scheduled 04/02/2024 * Telephone Encounter - Paula Mabry PSS - 06/09/2023 4:51 PM EST Patient has been identified by name and date of : Yes Patient phones for refill(s): Requested Prescriptions Pending Prescriptions Disp Refills lisinopril (ZESTRIL) 10 mg tablet 90 tablet 1 Sig: Take 1 tablet by mouth once daily. Date of last office visit in primary care: Visit date not found Date of next office visit in primary care: Visit date not found Please advise. Thank you. RAKESH Kendrick. documented in this encounterK[facility]12-13-2023 Miscellaneous Notes* Telephone Encounter - Mena Vasquez - 04/09/2023 10:44 AM EST JARRED:04/02/23 NOV:04/02/24 * Telephone Encounter - Viviana Mcgowan - 04/09/2023 10:39 AM EST Patient has been identified by name and date of : Yes Last office visit in this department: Visit date not found RX INSTRUCTIONS: Patient aware RX will be sent to pharmacy. No need to notify patient. Patient phones requesting refills as follows: Requested Prescriptions Pending Prescriptions Disp Refills fenofibrate nanocrystallized (TRICOR) 48 mg tablet 90 tablet 1 Sig: Take 1 tablet by mouth once daily. Please review and advise. Viviana Mcgowan documented in this encounterK[facility]12-06-2023 History of Present illness Narrative* Rose Marie Johns APRN.TRANSPLANT COORDINATOR - 04/02/2023 1:48 PM EST 04/02/2023 Patient presents with: Physical SUBJECTIVE: This is a 57 year old that is here today for Above Complaints. Since last office visit has been in good health without ER visit or hospitalizations. Bipolar: follows with Dr. Stahl. Appointment once every two months. Taking medications as prescribed without side effects. No recent medications changes CKD: follows with Dr. Pacheco with last appointment 12/31/2022. No medication changes made. GERD: taking omeprazole. Works well to control symptoms HYPERLIPIDEMIA: Patient is taking medications: Yes. Patient is watching diet: Yes. Patient denies myalgias: Yes. Patient denies gi upset: Yes HTN: Patient is compliant with meds Yes Monitors bp at home: No. Denies side effects: Yes. Chest pain: No. Dyspnea: No. Edema: No. Palpitations: No. Syncope: No. Headache: No. Dizziness: No. Reports has been having some sinus drainage and nasal congestion. Used to take allergy shots through Dr. Fernandes. Taking Claritin now but not really helping. PAST MEDICAL HISTORY Diagnosis Date Allergy to environmental factors Dr. Fernandes Anemia Bipolar 1 disorder (HCC) Dr. Stahl Chronic kidney disease (CKD), stage III (moderate) ([facility]) Dr. Arthur Essential hypertension Family history of prostate cancer in father GERD (gastroesophageal reflux disease) Hx of gallstones s/p cholecystectomy Hyperlipidemia Irritable bowel syndrome Kidney dysfunction LBBB (left bundle branch block) incomplete. Negative echo in 2018. OA (osteoarthritis) of knee Obesity (BMI 30.0-34.9) ALLERGIES Biaxin [Clarithromycin], Depakote [Divalproex Sodium], Ibuprofen, Latex, Prozac [Fluoxetine Hcl], Spectazole [Econazole Nitrate], and Wellbutrin [Bupropion Hcl] MEDICATIONS Current Outpatient Medications Medication Sig atorvastatin (LIPITOR) 80 mg tablet Take 1 tablet by mouth once daily. omeprazole (PRILOSEC) 20 mg capsule Take 1 capsule by mouth daily before breakfast. 1/2 hr before meal. nystatin (NYSTOP) powder Apply 1 application to affected area three times a day. lisinopril (ZESTRIL) 10 mg tablet Take 1 tablet by mouth once daily. fenofibrate nanocrystallized (TRICOR) 48 mg tablet Take 1 tablet by mouth once daily. docusate sodium (COLACE) 100 mg capsule Take 100 mg by mouth twice daily. OLANZapine (ZYPREXA) 10 mg tablet Take 2 tablets by mouth daily at bedtime. lamoTRIgine (LAMICTAL) 200 mg tablet Take 300 mg by mouth once daily. clonazePAM (KLONOPIN) 1 mg tablet Take 1 mg by mouth at bedtime as needed. zolpidem (AMBIEN) 10 mg tab Take by mouth at bedtime as needed. venlafaxine XR (EFFEXOR XR) 150 mg tr24 Take by mouth once daily. DULoxetine (CYMBALTA) 60 mg capsule Take 60 mg by mouth twice daily. FERROUS SULFATE (HIGH POTENCY IRON ORAL) Take 1 tablet by mouth once daily. cyanocobalamin (VITAMIN B-12) 500 mcg tablet Take 2 tablets by mouth once daily. CARBATROL 300 MG 12 HR CAP Take two capsules two(2) times daily. Current Facility-Administered Medications Medication Dose Route Frequency perflutren lipid microspheres 1.3 mL in NaCl (PF) 0.9% 10 mL injection (DEFINITY) INTRAVENOUS DIRECTED PRN sodium chloride 0.9 % (flush) 10 mL (BD POSIFLUSH) 10 mL INTRAVENOUS DIRECTED PRN Facility-Administered Medications Ordered in Other Visits Medication Dose Route Frequency propofol injection (DIPRIVAN) INTRAVENOUS PRN Medications and allergies reviewed by this provider. SOCIAL HISTORY Social History Tobacco Use Smoking status: Never Smokeless tobacco: Never Substance Use Topics Alcohol use: No Drug use: No REVIEW OF SYSTEMS GENERAL: No weight loss, malaise or fevers HEENT: Negative for frequent or significant headaches, No changes in hearing or vision, no nose bleeds or other nasal problems NECK: Negative for lumps, goiter, pain and significant neck swelling RESPIRATORY: Negative for cough, hemoptysis, wheezing, COPD, dyspnea or shortness of breath CARDIOVASCULAR: Negative for chest pain, leg swelling, hypertension, CHF or palpitations GI: No nausea, vomiting, or diarrhea : No history of dysuria, frequency or incontinence MUSCULOSKELETAL: Negative for joint pain or swelling, back pain or muscle pain SKIN: Negative for lesions, rash, and itching PSYCH: Negative for sleep disturbance, mood disorder and recent psychosocial stressors HEMATOLOGY/LYMPHOLOGY: Negative for prolonged bleeding, bruising easily or swollen nodes ENDOCRINE: Negative for cold or heat intolerance, polyuria, polydipsia and goiter NEURO: No history of headaches, syncope, paralysis, seizures or tremors All other reviewed and negative other than HPI. OBJECTIVE: BP 122/80 Pulse 68 Temp (!) 35.5 C (95.9 F) Resp 16 Ht 182.6 cm (5' 11.89) Wt 111.7 kg (246 lb 3.2 oz) SpO2 98% BMI 33.49 kg/m . Vital signs reviewed by this provider. APPEARANCE Well appearing, alert, in no acute distress, well-hydrated, well nourished. EYES conjunctiva and sclera normal. EARS External ears normal, canals clear NECK Supple, no adenopathy; thyroid symmetric, normal size, no bruits HEART RRR with normal S1 and S2, no murmurs, no gallops, no JVD appreciated LUNG clear to auscultation. No wheezes, rhonchi or rales EXTREMITIES Extremities normal, No deformities, No skin discoloration, and No edema SKIN Skin color, texture, turgor normal, no suspicious rashes or lesions to exposed skin Component Latest Ref Rng & Units 10/09/2022 Cholesterol, Total <200 mg/dL 191 Triglyceride <150 mg/dL 240 (H) HDL Cholesterol >39 mg/dL 43 Non HDL Cholesterol <130 mg/dL 148 (H) Fasting Time hrs 12 VLDL Cholesterol <30 mg/dL 48 (H) TC:HDL Ratio <5.10 4.44 LDL Cholesterol <100 mg/dL 100 (H) LDL:HDL Ratio <2.54 2.33 Hemoglobin A1C 4.3 - 5.6 % 5.4 Estimated Average Glucose mg/dL 108 Serum Creatinine due on 12/24/2023 Hemoglobin/Hematocrit due on 12/24/2023 Annual PCP Team Chronic Disease Visit due on 04/02/2024 BP Controlled (<130/80) due on 04/02/2024 Colorectal Cancer Screening due on 06/15/2024 Prostate Cancer Screening Discussion due on 07/05/2024 Diabetes Screening due on 10/09/2025 Lipid Screening due on 10/10/2027 DTaP,Tdap,Td Vaccine(2 - Td or Tdap) due on 01/18/2028 Influenza Vaccine Completed Depression Assessment Completed Hepatitis C Screening Completed HIV Screening Completed Shingrix Vaccine Completed Covid-19 Vaccine Completed ASSESSMENT/PLAN: 1. Annual physical exam - ICD9: V70.0, ICD10: Z00.00 (primary diagnosis) - Counseled on healthy diet and regular exercise - Discussed need for and benefit of weight loss. BMI 33.49 kg/(m^2) - Follow up for annual exam in one year 2. Chronic kidney disease, stage 3a (HCC) - ICD9: 585.3, ICD10: N18.31 - eGFR: 56 Stable - Counseled on avoiding NSAIDs, adequate hydration - Counseled on low sodium diet - ACEi/ARB prescribed: Yes - Follow up with kidney medicine 3. Mixed hyperlipidemia - ICD9: 272.2, ICD10: E78.2 - Controlled - Continue current medications - Counseled on healthy diet and regular exercise - Discussed need for and benefit of weight loss. BMI 33.49 kg/(m^2) - Follow up in 1 year, sooner should any other issues arise. 4. Essential hypertension - ICD9: 401.9, ICD10: I10 - Controlled - Continue current medications - Recommend home blood pressure monitoring, to bring results to next visit - Encouraged sodium restriction, DASH or Mediterranean diet - Recommend regular aerobic exercise - Discussed need for and benefit of weight loss. BMI 33.49 kg/(m^2) - Follow up in one year for hypertension visit 5. Gastroesophageal reflux disease, unspecified whether esophagitis present - ICD9: 530.81, ICD10: K21.9 - stable on current regime 6. Allergy to environmental factors - ICD9: V15.09, ICD10: Z91.09 - can try Flonase - recommend he follow-up with Dr. Fernandes is symptoms persist 7. Bipolar affective disorder, current episode mixed, current episode severity unspecified (HCC) - ICD9: 296.60, ICD10: F31.60 - continue to follow with psychiatry as recommended Rose Marie Johns APRN.CNP Prescription instructions reviewed with patient as applicable. Patient advised if symptoms do not improve or if symptoms worsen sooner, to contact their primary care physician. Potential red flag symptoms discussed with the patient. Reviewed appropriate action plan to take if red flag symptoms occur. Patient agreeable to treatment plan. [facility]* Diagnosis Annual physical exam- Primary Routine general medical examination at a health care facility Chronic kidney disease, stage 3a (HCC) Mixed hyperlipidemia Essential hypertension Unspecified essential hypertension Gastroesophageal reflux disease, unspecified whether esophagitis present Allergy to environmental factors Other allergy, other than to medicinal agents Bipolar affective disorder, current episode mixed, current episode severity unspecified (HCC) documented [facility] encounter [facility] History of Present illness Narrative* Jessica Engel RN - 03/24/2023 3:25 PM EST Patient unable to safely complete stress test due to gait while on the treadmill. Jessica Engel RN documented [facility] this encounterK[facility]11-[facility]23 Miscellaneous Notes* Telephone Encounter - Jessica Engel RN - 03/18/2023 12:44 PM EST Patient called and stress test instructions reviewed. Jessica Engel RN documented in this encounterK[facility]11-13-[facility]23 Miscellaneous Notes* Telephone Encounter - Kelley Rausch MA - 03/10/2023 3:51 PM EST Patient has been identified by name and date of : Yes Requested Prescriptions Pending Prescriptions Disp Refills atorvastatin (LIPITOR) 80 mg tablet 90 tablet 1 Sig: Take 1 tablet by mouth once daily. RX INSTRUCTIONS: Patient aware RX will be sent to pharmacy. No need to notify patient. Patient last office visit: 02/26/23 Patient next office visit: 04/02/23 Kelley Rausch MA * Telephone Encounter - Mina Olivares - 03/10/2023 12:08 PM EST Patient has been identified by name and date of : Yes Last office visit in this department: 02/26/2023 RX INSTRUCTIONS: Patient aware RX will be sent to pharmacy. No need to notify patient. Patient phones requesting refills as follows: Requested Prescriptions No prescriptions requested or ordered in this encounter Please review and advise. Mina Olivares documented [facility] this encounterK[facility]11-[facility] History of Present illness Narrative* Podlogar, LAUREN Trotter.TRANSPLANT COORDINATOR - 02/26/2023 9:54 AM EDT 02/26/2023 Patient presents with: Mass: Patient felt lump to left lower quadrant a few nights ago SUBJECTIVE: This is a 57 year old that is here today for Above Complaints.. Reports he felt a bulging/lumpy area to his left lower abdomen the other day when sitting on toilet. Had some sharp pain that was brief. Reports he doesn't feel it now. No pain at this time. Denies back pain, nausea, vomiting, diarrhea, hematochezia, melana, urinary frequency/urgency, dysuria or hematuria PAST MEDICAL HISTORY Diagnosis Date Allergy to environmental factors Dr. Fernandes Anemia Bipolar 1 disorder (HCC) Dr. Stahl Chronic kidney disease (CKD), stage III (moderate) ([facility]) Dr. Arthur Essential hypertension Family history of prostate cancer in father GERD (gastroesophageal reflux disease) Hx of gallstones s/p cholecystectomy Hyperlipidemia Irritable bowel syndrome Kidney dysfunction LBBB (left bundle branch block) incomplete. Negative echo in 2018. OA (osteoarthritis) of knee Obesity (BMI 30.0-34.9) ALLERGIES Biaxin [Clarithromycin], Depakote [Divalproex Sodium], Ibuprofen, Latex, Prozac [Fluoxetine Hcl], Spectazole [Econazole Nitrate], and Wellbutrin [Bupropion Hcl] MEDICATIONS Current Outpatient Medications Medication Sig omeprazole (PRILOSEC) 20 mg capsule Take 1 capsule by mouth daily before breakfast. 1/2 hr before meal. nystatin (NYSTOP) powder Apply 1 application to affected area three times a day. lisinopril (ZESTRIL) 10 mg tablet Take 1 tablet by mouth once daily. fenofibrate nanocrystallized (TRICOR) 48 mg tablet Take 1 tablet by mouth once daily. atorvastatin (LIPITOR) 80 mg tablet Take 1 tablet by mouth once daily. docusate sodium (COLACE) 100 mg capsule Take 100 mg by mouth twice daily. OLANZapine (ZYPREXA) 10 mg tablet Take 2 tablets by mouth daily at bedtime. lamoTRIgine (LAMICTAL) 200 mg tablet Take 300 mg by mouth once daily. clonazePAM (KLONOPIN) 1 mg tablet Take 1 mg by mouth at bedtime as needed. zolpidem (AMBIEN) 10 mg tab Take by mouth at bedtime as needed. venlafaxine XR (EFFEXOR XR) 150 mg tr24 Take by mouth once daily. DULoxetine (CYMBALTA) 60 mg capsule Take 60 mg by mouth twice daily. FERROUS SULFATE (HIGH POTENCY IRON ORAL) Take 1 tablet by mouth once daily. cyanocobalamin (VITAMIN B-12) 500 mcg tablet Take 2 tablets by mouth once daily. CARBATROL 300 MG 12 HR CAP Take two capsules two(2) times daily. Current Facility-Administered Medications Medication Dose Route Frequency perflutren lipid microspheres 1.3 mL in NaCl (PF) 0.9% 10 mL injection (DEFINITY) INTRAVENOUS DIRECTED PRN sodium chloride 0.9 % (flush) 10 mL (BD POSIFLUSH) 10 mL INTRAVENOUS DIRECTED PRN Facility-Administered Medications Ordered in Other Visits Medication Dose Route Frequency propofol injection (DIPRIVAN) INTRAVENOUS PRN Medications and allergies reviewed by this provider. SOCIAL HISTORY Social History Tobacco Use Smoking status: Never Smokeless tobacco: Never Substance Use Topics Alcohol use: No Drug use: No REVIEW OF SYSTEMS All other reviewed and negative other than HPI. OBJECTIVE: BP 120/84 Pulse 84 Resp 18 Wt 110.1 kg (242 lb 12.8 oz) SpO2 98% BMI 31.17 kg/m . Vital signs reviewed by this provider. APPEARANCE Well appearing, alert, in no acute distress, well-hydrated, well nourished. ABDOMEN bowel sounds normoactive, no bruits, soft, non-tender, non-distended, without organomegaly or palpable masses. Patient pointed to left suprapubic area where he saw the lump. No visible lump or bulge in area BP Controlled (<130/80) Never done Annual PCP Team Chronic Disease Visit due on 11/06/2023 Serum Creatinine due on 12/24/2023 Hemoglobin/Hematocrit due on 12/24/2023 Colorectal Cancer Screening due on 06/15/2024 Prostate Cancer Screening Discussion due on 07/05/2024 Diabetes Screening due on 10/09/2025 Lipid Screening due on 10/10/2027 DTaP,Tdap,Td Vaccine(2 - Td or Tdap) due on 01/18/2028 Influenza Vaccine Completed Depression Assessment Completed Hepatitis C Screening Completed HIV Screening Completed Shingrix Vaccine Completed Covid-19 Vaccine Completed ASSESSMENT/PLAN: 1. Concern about hernia without diagnosis - ICD9: V65.5, ICD10: Z71.1 - no evidence of hernia - no red flag symptoms or exam findings - red flag symptoms discussed, verbalizes understanding - follow-up as needed Rose Marie Johns APRN.CNP Prescription instructions reviewed with patient as applicable. Patient advised if symptoms do not improve or if symptoms worsen sooner, to contact their primary care physician. Potential red flag symptoms discussed with the patient. Reviewed appropriate action plan to take if red flag symptoms occur. Patient agreeable to treatment plan. I spent a total of 20 minutes on the date of the service which included preparing to see the patient, [id number] patient care, completing clinical documentation, obtaining and/or reviewing separately obtained history, performing a medically appropriate examination, and counseling and educating the patient/family/caregiver. documented in this encounterK[facility]09-29-[facility] Miscellaneous Notes* Telephone Encounter - Mina Olivares - 01/24/2023 12:13 PM EDT Patient has been identified by name and date of : Yes Last office visit in this department: 11/05/2022 RX INSTRUCTIONS: Patient aware RX will be sent to pharmacy. No need to notify patient. Patient phones requesting refills as follows: Requested Prescriptions Pending Prescriptions Disp Refills omeprazole (PRILOSEC) 20 mg capsule 90 capsule 1 Sig: Take 1 capsule by mouth daily before breakfast. 1/2 hr before meal. nystatin (NYSTOP) powder 30 g 0 Sig: Apply 1 application to affected area three times a day. Please review and advise. Mina Olivares documented in this encounterK[facility]08-14-2023 Miscellaneous Notes* Telephone Encounter - Paula Mabry PSS - 12/09/2022 12:51 PM EDT Patient has been identified by name and date of : Yes JARRED-03/28/22 Labs-10/09/22 NOV-04/02/23 RX INSTRUCTIONS: Patient aware RX will be sent to pharmacy. No need to notify patient. Patient phones requesting refills as follows: Requested Prescriptions Pending Prescriptions Disp Refills lisinopril (ZESTRIL) 10 mg tablet 90 tablet 1 Sig: Take 1 tablet by mouth once daily. Please review and advise. Paula Mabry, PSS documented in this encounterK[facility]07-31-2023 History of Present illness Narrative* Effie Muñoz MD - 11/25/2022 9:18 AM EDT Jimi Soto 1965 REFERRING PHYSICIAN: No ref. provider found CHIEF COMPLAINT: Follow Up (Rectal bleeding, seeping ) HPI: The patient is a 57 year old male presents with BRBPR. He recently underwent colonoscopy on 08/22/2022. He was found to have internal hemorrhoids with evidence of bleeding/friability. He also had a poor colon cleansing preparation. He admits to hard stools He admits to straining He notes fecal seepage PAST MEDICAL HISTORY Diagnosis Date Allergy to environmental factors Dr. Fernandes Anemia Bipolar 1 disorder (HCC) Dr. Stahl Chronic kidney disease (CKD), stage III (moderate) (HCC) Dr. Arthur Essential hypertension Family history of prostate cancer in father GERD (gastroesophageal reflux disease) Hx of gallstones s/p cholecystectomy Hyperlipidemia Irritable bowel syndrome Kidney dysfunction LBBB (left bundle branch block) incomplete. Negative echo in 2018. OA (osteoarthritis) of knee Obesity (BMI 30.0-34.9) PAST SURGICAL HISTORY Procedure Laterality Date APPENDECTOMY remotely COLONOSCOPY FLX DX W/COLLJ SPEC WHEN PFRMD 06/15/2014 Colonoscopy COLONOSCOPY SCREENING Bilateral 08/22/2022 ESOPHAGOGASTRODUODENOSCOPY TRANSORAL DIAGNOSTIC 06/15/2014 EGD INCISION & DRAINAGE ABSCESS SIMPLE/SINGLE both sides of face. KNEE SURGERY HX arthroscopic surgery for cartilage removal. unsure which knee L'SCOPE CHOLECYSTECTOMY 12/2021 Current Outpatient Medications Medication Sig fenofibrate nanocrystallized (TRICOR) 48 mg tablet Take 1 tablet by mouth once daily. atorvastatin (LIPITOR) 80 mg tablet Take 1 tablet by mouth once daily. lisinopril (ZESTRIL, PRINIVIL) 10 mg tablet Take 1 tablet by mouth once daily. omeprazole (PRILOSEC) 20 mg capsule Take 1 capsule by mouth daily before breakfast. 1/2 hr before meal. docusate sodium (COLACE) 100 mg capsule Take 100 mg by mouth twice daily. nystatin (NYSTOP) powder Apply 1 application to affected area three times daily. OLANZapine (ZYPREXA) 10 mg tablet Take 2 tablets by mouth daily at bedtime. lamoTRIgine (LAMICTAL) 200 mg tablet Take 300 mg by mouth once daily. clonazePAM (KLONOPIN) 1 mg tablet Take 1 mg by mouth at bedtime as needed. zolpidem (AMBIEN) 10 mg tab Take by mouth at bedtime as needed. venlafaxine XR (EFFEXOR XR) 150 mg tr24 Take by mouth once daily. DULoxetine (CYMBALTA) 60 mg capsule Take 60 mg by mouth twice daily. FERROUS SULFATE (HIGH POTENCY IRON ORAL) Take 1 tablet by mouth once daily. cyanocobalamin (VITAMIN B-12) 500 mcg tablet Take 2 tablets by mouth once daily. CARBATROL 300 MG 12 HR CAP Take two capsules two(2) times daily. ALLERGIES: Biaxin [Clarithromycin], Depakote [Divalproex Sodium], Ibuprofen, Latex, Prozac [Fluoxetine Hcl], Spectazole [Econazole Nitrate], and Wellbutrin [Bupropion Hcl] REVIEW OF SYSTEMS: Denies fevers PHYSICAL EXAMINATION: General: The patient is 57 year old male, well nourished, well hydrated in no acute distress. The patient is oriented to time, place, and person. VITALS: Blood pressure 132/64, pulse 91, temperature 36.1 C (97 F), height 188 cm (6' 2), weight 114.8 kg (253 lb), SpO2 100 %. Body mass index is 32.48 kg/m . Head: Normal cephalic, atraumatic Eyes: pupils are equally round, sclera are clear/anicteric Neck is supple with no tracheal deviation Respiratory: Normal respiratory excursion and pattern. Abdominal exam: benign Extremities: no clubbing, cyanosis or edema. Neuro: non focal Psych: normal mood Assessment IMPRESSION: hemorrhoidal bleeding PLAN: I have discussed the above with the patient. I have reassured patient that as per colonoscopy, there is no evidence of colon malignancy. I have recommended the following for conservative treatment of hemorrhoidal disease: Drinking plenty of fluids - 8 - 10 glasses of water per day Avoid caffeinated products - as it will decrease the free water in your body Follow normal bodily urge for bowel movements Avoid straining for bowel movements Avoid prolonged sitting on the toilet Adequate fiber (25-30 grams/day) and water in diet - this is important as it may help with fecal seepage and patient's hard stools. I have encouraged patient to follow the above, before consideration of any surgical intervention due to the nature of recurrence of hemorrhoidal disease if no daily habits are changed. I have encouraged patient to return to clinic if he notes worsening signs/symptoms. The patient acknowledges the above I have answered all questions to the patient s satisfaction and the patient has no further questions. I have confirmed and edited as necessary, the PFSH and ROS obtained by others. . Diagnoses: (K64.8) Hemorrhoids, internal, with bleeding (primary encounter diagnosis) Return to Clinic: The patient is instructed to follow-up with me as above. I spent a total of 21 minutes on the date of the service which included preparing to see the patient with review of any pertinent laboratory studies/radiological imaging/medical records, [id number] care, obtaining oral medical history from the patient in this encounter, counseling and educating the patient/family/caregiver, and completing appropriate medical documentation. Effie Muñoz MD documented in this encounterK[facility]07-31-[facility] Nurse Note* Tee Mojica LPN - 11/25/2022 8:57 AM EDT The review of systems data was entered by the nurse and reviewed by me Nursing Notes: Tee Mojica LPN 11/25/2022 9:00 aM Signed REVIEW OF SYSTEMS: General: The patient denies fatigue, denies weight loss, denies weight gain, denies feeling hot, and denies feelings of cold. Eyes: The patient denies glaucoma, denies eye injury/surgery, does not wear glasses or contacts. Ear/Nose/Throat: The patient NOTES allergies, denies hayfever, denies ear infections, and denies bloody noses. Cardiovascular: The patient denies chest pain, denies heart disease, NOTES high blood pressure,denies cardiac stent, denies prior heart attack, denies irregular heart beat, NOTES high cholesterol, NOTES poor circulation, NOTES Left bundle branch block, NOTES claudication, NOTES cold feet, denies peripheral arterial stent. Respiratory: The patient denies tuberculosis, denies pneumonia, denies frequent cough, denies pulmonary embolism, NOTES shortness of breath, and denies coughing up blood. Gastrointestinal: The patient denies difficulty swallowing, NOTES acid reflux, denies ulcers, denies vomiting, denies jaundice/hepatitis, NOTES gallbladder problems, denies black or tarry stools, NOTES hemorrhoids, NOTES bleeding from rectum, denies diverticulitis, NOTES constipation, denies diarrhea, denies loss of stool control, and denies hernias. Kidney/Bladder: The patient NOTES kidney disease, NOTES urine infections, and denies bloody urine. Skin: The patient denies a history of skin cancer, denies bleeding/changing moles, and denies a history of skin rash. Neurologic: The patient denies a history of epilepsy/convulsions, denies headaches, denies head/spinal injuries, and denies stroke/TIA. Psychiatric: The patient NOTES psychiatric medications, denies depression, and denies voices, denies substance abuse. Endocrine: The patient denies thyroid disorders, denies diabetes, and denies hormonal problems. Hematologic: The patient denies a history of bruising, denies bleeding, and NOTES anemia, denies blood clots. Infections: The patient denies a history of measles and mumps, denies rheumatic fever, and denies sexually transmitted diseases. Musculoskeletal: The patient denies back pain/injury, NOTES back problems, denies sciatica, NOTES knee/foot trouble, denies arthritis, or denies gout. When was patient's last Mammogram screening? None Last Colonoscopy: 2022 Tee Mojica LPN documented in this encounterK[facility]07-11-[facility] History of Present illness Narrative* Ruth Spain RT(R) - 11/05/2022 10:50 AM EDT Radiology Service Progress Note PATIENT NAME: Jimi Soto DATE OF SERVICE: November 05, 2022 TIME: 10:47 AM PATIENT IDENTITY VERIFICATION COMPLETED USING TWO (2) IDENTIFIERS: Name and Date of confirmedby patient verbally. FALL SCREENING: Has the patient had 2 falls in the last year or 1 fall with injury or currently using an Ambulatory Assistive Device (Walker, Cane, Wheelchair, Crutches, etc.)? No PATIENT GENDER DATA: Male PATIENT RELEVANT IMPLANT DATA REVIEWED: Not Applicable RADIOLOGY DEPARTMENT: General X-ray: Exam(s) Completed: Chest X-Ray PERIPHERAL IV DATA: Not applicable SIGNED BY: RT Cuauhtemoc(R) November 05, 2022 10:47 AM documented in this encounterK[facility]07-11-2023 History of Present illness Narrative* Alpesh Hill MD - 11/05/2022 9:57 AM EDT Chief Complaint Patient presents with: Chest Pain: Reports severe chest pain over 29 of October weekend. No issue since. HPI Jimi Soto is a 57 year old male who presents here today for Above Complaints. Patient complaining of chest pain over the weekend while he was standing without exertion. Described as tightness and severe pain all over his chest which lasted about 10 minutes. Did not take anything for pain. Admits to feeling anxious at the time of the pain without panic attack. Denies radiation to neck/jaw, nausea, diaphoresis, lightheadedness, SOB, palpitations. No recurrent symptoms since. Past medical history, appointments, medications, allergies reviewed. Previous Medical History PAST MEDICAL HISTORY Diagnosis Date Allergy to environmental factors Dr. Dena Hernandez Bipolar 1 disorder (HCC) Dr. Stahl Chronic kidney disease (CKD), stage III (moderate) (HCC) Dr. Arthur Essential hypertension Family history of prostate cancer in father GERD (gastroesophageal reflux disease) Hx of gallstones s/p cholecystectomy Hyperlipidemia Irritable bowel syndrome Kidney dysfunction LBBB (left bundle branch block) incomplete. Negative echo in 2018. OA (osteoarthritis) of knee Obesity (BMI 30.0-34.9) Previous Surgical History PAST SURGICAL HISTORY Procedure Laterality Date APPENDECTOMY remotely COLONOSCOPY FLX DX W/COLLJ SPEC WHEN PFRMD 06/15/2014 Colonoscopy ESOPHAGOGASTRODUODENOSCOPY TRANSORAL DIAGNOSTIC 06/15/2014 EGD INCISION & DRAINAGE ABSCESS SIMPLE/SINGLE both sides of face. KNEE SURGERY HX arthroscopic surgery for cartilage removal. unsure which knee L'SCOPE CHOLECYSTECTOMY 12/2021 Family History FAMILY HISTORY Problem Relation Age of Onset Cancer Father prostate, skin cancer Hypertension Father Coronary Artery Disease Mother stroke and mi Diabetes Mother Heart Sister [place] age 50s Mental illness Brother suicide Mental illness Brother Heart Maternal Grandmother Diabetes Maternal Grandmother Breast Cancer Paternal Grandmother Mental illness Brother hunting accident Patient Allergies ALLERGIES Allergen Reactions Biaxin [Clarithromy* Intolerance Depakote [Divalproe* Intolerance Ibuprofen Intolerance advil Latex Unknown Prozac [Fluoxetine * Intolerance Spectazole [Econazo* Intolerance Wellbutrin [Bupropi* Intolerance CAUSES [employer] Current Medications Current Outpatient Medications on File Prior to Visit Medication Sig fenofibrate nanocrystallized (TRICOR) 48 mg tablet Take 1 tablet by mouth once daily. atorvastatin (LIPITOR) 80 mg tablet Take 1 tablet by mouth once daily. lisinopril (ZESTRIL, PRINIVIL) 10 mg tablet Take 1 tablet by mouth once daily. omeprazole (PRILOSEC) 20 mg capsule Take 1 capsule by mouth daily before breakfast. 1/2 hr before meal. docusate sodium (COLACE) 100 mg capsule Take 100 mg by mouth twice daily. nystatin (NYSTOP) powder Apply 1 application to affected area three times daily. OLANZapine (ZYPREXA) 10 mg tablet Take 2 tablets by mouth daily at bedtime. lamoTRIgine (LAMICTAL) 200 mg tablet Take 300 mg by mouth once daily. clonazePAM (KLONOPIN) 1 mg tablet Take 1 mg by mouth at bedtime as needed. zolpidem (AMBIEN) 10 mg tab Take by mouth at bedtime as needed. venlafaxine XR (EFFEXOR XR) 150 mg tr24 Take by mouth once daily. DULoxetine (CYMBALTA) 60 mg capsule Take 60 mg by mouth twice daily. FERROUS SULFATE (HIGH POTENCY IRON ORAL) Take 1 tablet by mouth once daily. cyanocobalamin (VITAMIN B-12) 500 mcg tablet Take 2 tablets by mouth once daily. CARBATROL 300 MG 12 HR CAP Take two capsules two(2) times daily. Current Facility-Administered Medications on File Prior to Visit Medication propofol injection (DIPRIVAN) Social History Social History Tobacco Use Smoking status: Never Smokeless tobacco: Never Substance Use Topics Alcohol use: No Drug use: No Review of Symptoms REVIEW OF SYSTEMS GENERAL: No weight loss, malaise or fevers RESPIRATORY: Negative for cough, hemoptysis, wheezing, COPD, dyspnea or shortness of breath CARDIOVASCULAR: See HPI GI: No nausea, vomiting, or diarrhea SKIN: Negative for lesions, rash, and itching EXAM: BP 122/74 Pulse 84 Resp 16 Wt 115.4 kg (254 lb 6.4 oz) SpO2 94% BMI 32.66 kg/m General Appearance: Well appearing, alert, in no acute distress, well-hydrated, well nourished.. Skin: Skin color, texture, turgor normal, no suspicious rashes or lesions. Lungs: Lungs clear to auscultation. No wheezing, rhonchi, rales.. Heart: RRR without murmur, gallop, or rubs. No ectopy. Extremities: No deformities, edema, skin discoloration, clubbing or cyanosis. Good capillary refill. . Musculoskeletal: no reproducible pain on exam. Health Maintenance List INFLUENZA(1) due on 12/27/2022 SERUM CREATININE due on 10/10/2023 HEMOGLOBIN/HEMATOCRIT due on 10/10/2023 ANNUAL PCP TEAM CHRONIC DISEASE VISIT due on 10/16/2023 BP CONTROLLED (<130/80) due on 10/16/2023 COLORECTAL CANCER SCREENING due on 06/15/2024 PROSTATE CANCER SCREENING DISCUSSION due on 07/05/2024 DIABETES SCREEN due on 10/09/2025 LIPID SCREEN due on 10/10/2027 DTAP,TDAP,TD(2 - Td or Tdap) due on 01/18/2028 DEPRESSION ASSESSMENT Completed HEPATITIS C SCREENING Completed HIV SCREENING Completed SHINGRIX VACCINE Completed COVID-19 VACCINE Completed Data reviewed EKG: NSR at 83 bpm Component Latest Ref Rng & Units 10/09/2022 WBC 3.70 - 11.00 k/uL 4.96 RBC 4.20 - 6.00 m/uL 3.76 (L) Hemoglobin 13.0 - 17.0 g/dL 13.9 Hematocrit 39.0 - 51.0 % 39.8 MCV 80.0 - 100.0 fL 105.9 (H) MCH 26.0 - 34.0 pg 37.0 (H) MCHC 30.5 - 36.0 g/dL 34.9 RDW-CV 11.5 - 15.0 % 12.5 Platelet Count 150 - 400 k/uL 207 MPV 9.0 - 12.7 fL 10.3 Neut% % 35.9 Abs Neut (ANC) 1.45 - 7.50 k/uL 1.78 Lymph% % 48.6 Abs Lymph 1.00 - 4.00 k/uL 2.41 Adams% % 10.3 Abs Adams <0.87 k/uL 0.51 Eosin% % 4.6 Abs Eosin <0.46 k/uL 0.23 Baso% % 0.4 Abs Baso <0.11 k/uL <0.03 Immature Gran % % 0.2 IMMATURE GRANS (ABS) <0.10 k/uL <0.03 NRBC /100 WBC 0.0 Absolute nRBC <0.01 k/uL <0.01 DTYPE Auto Protein, Total 6.3 - 8.0 g/dL 6.8 Albumin 3.9 - 4.9 g/dL 4.4 Calcium 8.5 - 10.2 mg/dL 9.6 Bilirubin, Total 0.2 - 1.3 mg/dL 0.2 Alkaline Phosphatase 38 - 113 U/L 79 AST 14 - 40 U/L 24 ALT 10 - 54 U/L 20 Glucose 74 - 99 mg/dL 114 (H) BUN 9 - 24 mg/dL 18 Creatinine 0.73 - 1.22 mg/dL 1.61 (H) Sodium 136 - 144 mmol/L 140 Potassium 3.7 - 5.1 mmol/L 4.5 Chloride 97 - 105 mmol/L 103 CO2 22 - 30 mmol/L 26 Anion Gap 9 - 18 mmol/L 11 eGFR >=60 mL/min/1.73m 49 (L) Cholesterol, Total <200 mg/dL 191 Triglyceride <150 mg/dL 240 (H) HDL Cholesterol >39 mg/dL 43 Non HDL Cholesterol <130 mg/dL 148 (H) Fasting Time hrs 12 VLDL Cholesterol <30 mg/dL 48 (H) TC:HDL Ratio <5.10 4.44 LDL Cholesterol <100 mg/dL 100 (H) LDL:HDL Ratio <2.54 2.33 Hemoglobin A1C 4.3 - 5.6 % 5.4 Estimated Average Glucose mg/dL 108 ASSESSMENT/PLAN: 1. Chest pain, unspecified type - ICD9: 786.50, ICD10: R07.9 Chest pain of unclear etiology, patient with significant risk factor(s) of family history of early coronary heart disease, Hypertension, Hyperlipidemia, and obesity EKG normal. Obtain CXR, stress testing, and echo. Red flags for re-assessment reviewed with patientin detail. - ECG COMPLETE - XR CHEST 2V FRONTAL/LAT - EXERCISE STRESS ECG (WITHOUT IMAGING) - ECHO - PERFLUTREN LIPID MICROSPHERES 1.1 MG/ML INJECTION IN NS 10 ML - SODIUM CHLORIDE 0.9 % (FLUSH) INJECTION SYRINGE Alpesh Hill MD documented in this encounterK[facility]06-26-2023 Miscellaneous Notes* Telephone Encounter - Crys King LPN - 10/21/2022 11:49 AM EDT Phoned patient and reviewed results and recommendations with him. Patient voiced understanding. * Telephone Encounter - Crys King LPN - 10/21/2022 11:49 AM EDT ----- Message from Alpesh Hill MD sent at 10/21/2022 10:36 AM EDT ----- Xray shows arthritis in both knees with small amount of fluid on right knee. No fractures or dislocation. Continue rest, ice, elevation and OTC analgesics as discussed in office. If not improving, would refer to PT. documented in this encounterK[facility]06-22-2023 Miscellaneous Notes* Telephone Encounter - Ruby Bales MA - 10/17/2022 4:01 PM EDT JARRED: 10/15/22 with PCP NOV: 04/02/23-CPE with YOVANY Last refill: 03/28/22 With 90 and 1 refills Ruby Bales MA * Telephone Encounter - Yoon Beyer - 10/14/2022 1:20 PM EDT Patient came in today and stated he is out out this medication and needs it. Patient has been identified by name and date of : Yes Last office visit in this department: 07/10/2022 RX INSTRUCTIONS: Patient aware RX will be sent to pharmacy. No need to notify patient. Patient phones requesting refills as follows: Requested Prescriptions Pending Prescriptions Disp Refills fenofibrate nanocrystallized (TRICOR) 48 mg tablet 90 tablet 1 Sig: Take 1 tablet by mouth once daily. Please review and advise. Yoon Few documented in this encounterKet[facility]06-20-2023 History of Present illness Narrative* Dang Dickson RT(R) - 10/15/2022 1:30 PM EDT Radiology Service Progress Note PATIENT NAME: Jimi Soto DATE OF SERVICE: October 15, 2022 TIME: 1:32 PM PATIENT IDENTITY VERIFICATION COMPLETED USING TWO (2) IDENTIFIERS: Name and Date of confirmedby patient verbally. FALL SCREENING: Has the patient had 2 falls in the last year or 1 fall with injury or currently using an Ambulatory Assistive Device (Walker, Cane, Wheelchair, Crutches, etc.)? No PATIENT GENDER DATA: Male PATIENT RELEVANT IMPLANT DATA REVIEWED: Yes RADIOLOGY DEPARTMENT: General X-ray: Exam(s) Completed: Lower Extremity X- Ray(s): Knee, AP / Lat / Tunne / Merchant Bilateral and Wt. Bearing PERIPHERAL IV DATA: Not applicable SIGNED BY: RT Carmen(R) October 15, 2022 1:32 PM documented in this encounterK[facility]06-20-2023 History of Present illness Narrative* Alpesh Hill MD - 10/15/2022 12:55 PM EDT Chief Complaint Patient presents with: Pain: Reports issues with right knee/leg pain since fall occurred several weeks ago in [place]. Patient wasn't seen for the issue at any point until today. HPI Jimi Soto is a 57 year old male who presents here today for Above Complaints. Patient tripped and fell down 1-2 concrete stairs and landed on his backside onto [place] in [place] about 2 weeks ago. Did not hit his head or have LOC. States his legs were twisted when he fell, but was able to get up and walk on his own immediately after the fall. C/o bilateral knee pain, right worse than left, and right anterior thigh pain today. Not treating with anything OTC. Denies swelling, bruising, erythema, locking, catching, giving out. Past medical history, appointments, medications, allergies reviewed. Previous Medical History PAST MEDICAL HISTORY Diagnosis Date Allergy to environmental factors Dr. Fernandes Anemia Bipolar 1 disorder (HCC) Dr. Stahl Chronic kidney disease (CKD), stage III (moderate) (HCC) Dr. Arthur Essential hypertension Family history of prostate cancer in father GERD (gastroesophageal reflux disease) Hx of gallstones s/p cholecystectomy Hyperlipidemia Irritable bowel syndrome Kidney dysfunction LBBB (left bundle branch block) incomplete. Negative echo in 2018. Obesity (BMI 30.0-34.9) Previous Surgical History PAST SURGICAL HISTORY Procedure Laterality Date APPENDECTOMY remotely COLONOSCOPY FLX DX W/COLLJ SPEC WHEN PFRMD 06/15/2014 Colonoscopy ESOPHAGOGASTRODUODENOSCOPY TRANSORAL DIAGNOSTIC 06/15/2014 EGD INCISION & DRAINAGE ABSCESS SIMPLE/SINGLE both sides of face. KNEE SURGERY HX arthroscopic surgery for cartilage removal. unsure which knee L'SCOPE CHOLECYSTECTOMY 12/2021 Family History FAMILY HISTORY Problem Relation Age of Onset Cancer Father prostate, skin cancer Hypertension Father Coronary Artery Disease Mother stroke and mi Diabetes Mother Heart Sister [place] age 50s Mental illness Brother suicide Mental illness Brother Heart Maternal Grandmother Diabetes Maternal Grandmother Breast Cancer Paternal Grandmother Mental illness Brother hunting accident Patient Allergies ALLERGIES Allergen Reactions Biaxin [Clarithromy* Intolerance Depakote [Divalproe* Intolerance Ibuprofen Intolerance advil Latex Unknown Prozac [Fluoxetine * Intolerance Spectazole [Econazo* Intolerance Wellbutrin [Bupropi* Intolerance CAUSES CATATONIC STATE Current Medications Current Outpatient Medications on File Prior to Visit Medication Sig atorvastatin (LIPITOR) 80 mg tablet Take 1 tablet by mouth once daily. lisinopril (ZESTRIL, PRINIVIL) 10 mg tablet Take 1 tablet by mouth once daily. omeprazole (PRILOSEC) 20 mg capsule Take 1 capsule by mouth daily before breakfast. 1/2 hr before meal. fenofibrate nanocrystallized (TRICOR) 48 mg tablet Take 1 tablet by mouth once daily. docusate sodium (COLACE) 100 mg capsule Take 100 mg by mouth twice daily. nystatin (NYSTOP) powder Apply 1 application to affected area three times daily. OLANZapine (ZYPREXA) 10 mg tablet Take 2 tablets by mouth daily at bedtime. lamoTRIgine (LAMICTAL) 200 mg tablet Take 300 mg by mouth once daily. clonazePAM (KLONOPIN) 1 mg tablet Take 1 mg by mouth at bedtime as needed. zolpidem (AMBIEN) 10 mg tab Take by mouth at bedtime as needed. venlafaxine XR (EFFEXOR XR) 150 mg tr24 Take by mouth once daily. DULoxetine (CYMBALTA) 60 mg capsule Take 60 mg by mouth twice daily. FERROUS SULFATE (HIGH POTENCY IRON ORAL) Take 1 tablet by mouth once daily. cyanocobalamin (VITAMIN B-12) 500 mcg tablet Take 2 tablets by mouth once daily. CARBATROL 300 MG 12 HR CAP Take two capsules two(2) times daily. Current Facility-Administered Medications on File Prior to Visit Medication propofol injection (DIPRIVAN) Social History Social History Tobacco Use Smoking status: Never Smokeless tobacco: Never Substance Use Topics Alcohol use: No Drug use: No Review of Symptoms REVIEW OF SYSTEMS See HPI EXAM: BP 128/78 Pulse 82 Resp 16 Wt 121.3 kg (267 lb 6.4 oz) SpO2 98% BMI 34.33 kg/m General Appearance: Well appearing, alert, in no acute distress, well-hydrated, well nourished.. Skin: healing shallow laceration on right anterior thigh without cellulitis or drainage. KNEE:Location: bilateral Redness: No. Warmth: No. Crepitus: Yes. Effusion: No. Joint line tenderness: No. Lateral tenderness: No. Medial tenderness: No. Drawer sign negative: Yes. Medial or lateral laxity: No. Sathya's sign: No. HIP: Location: Bilateral Redness: No. Warmth: No. Range of motion: WNL Tenderness over trochanteric bursa: No Pain with movement: No. Health Maintenance List BP CONTROLLED (<130/80) Never done ANNUAL PCP TEAM CHRONIC DISEASE VISIT due on 07/11/2023 SERUM CREATININE due on 10/10/2023 HEMOGLOBIN/HEMATOCRIT due on 10/10/2023 COLORECTAL CANCER SCREENING due on 06/15/2024 PROSTATE CANCER SCREENING DISCUSSION due on 07/05/2024 DIABETES SCREEN due on 10/09/2025 LIPID SCREEN due on 10/10/2027 DTAP,TDAP,TD(2 - Td or Tdap) due on 01/18/2028 INFLUENZA Completed DEPRESSION ASSESSMENT Completed HEPATITIS C SCREENING Completed HIV SCREENING Completed SHINGRIX VACCINE Completed COVID-19 VACCINE Completed ASSESSMENT/PLAN: 1. Acute bilateral knee pain - ICD9: 338.19, 719.46, ICD10: M25.561, M25.562 (primary diagnosis) Patient with history of moderate OA based on xray in 2019. Will recheck xray today due to recent fall. Discussed use of ice and tylenol PRN for pain. Unable to take NSAIDs due to CKD. Offered referral to PT which he is refusing. - XR KNEE GENERAL 4V AP BOTH/PA BOTH/LAT/MERC BILATERAL 2. Fall, initial encounter - ICD9: E888.9, ICD10: W19.XXXA Trip and fall without apparent injury/fracture. Feels stead on his feet. Not needing cane or walker. 3. Primary osteoarthritis of both knees - ICD9: 715.16, ICD10: M17.0 See above. Will call with results. 4. Injury of right thigh, initial encounter - ICD9: 959.6, ICD10: S79.921A Healing well. Up to date on Tdap. Wound care discussed. Red flags for re- assessment reviewed with patient in detail. Alpesh Hill MD documented in this encounterRoy Ville [id number] History of Present illness Narrative* Effie Muñoz MD - 07/16/2022 3:27 PM EDT HISTORY AND PHYSICAL Jimi Soto 1965 REFERRING PHYSICIAN: Alpesh Hill,* CHIEF COMPLAINT: Consult (BRBPR) HPI: The patient is a 57 year old male referred for endoscopy. Jimi notes rectal bleeding. He describes this as BRBPR. He admits to having known hemorrhoids. He last had a colonoscopy in 2014. No polyps were noted. This was done under MAC anesthesia. A 10 year screening colonoscopy was recommended. The patient also notes fatigue and dizziness. His last Hgb was normal. PAST MEDICAL HISTORY Diagnosis Date Allergy to environmental factors Dr. Fernandes Anemia Bipolar 1 disorder (HCC) Dr. Stahl Chronic kidney disease (CKD), stage III (moderate) ([facility]) Dr. Arthur Essential hypertension Family history of prostate cancer in father GERD (gastroesophageal reflux disease) Hx of gallstones s/p cholecystectomy Hyperlipidemia Irritable bowel syndrome Kidney dysfunction LBBB (left bundle branch block) incomplete. Negative echo in 2018. Obesity (BMI 30.0-34.9) PAST SURGICAL HISTORY Procedure Laterality Date APPENDECTOMY remotely COLONOSCOPY FLX DX W/COLLJ SPEC WHEN PFRMD 06/15/2014 Colonoscopy ESOPHAGOGASTRODUODENOSCOPY TRANSORAL DIAGNOSTIC 06/15/2014 EGD INCISION & DRAINAGE ABSCESS SIMPLE/SINGLE both sides of face. KNEE SURGERY HX arthroscopic surgery for cartilage removal. unsure which knee L'SCOPE CHOLECYSTECTOMY 12/2021 Current Outpatient Medications Medication Sig simvastatin (ZOCOR) 20 mg tablet Take by mouth. lisinopril (ZESTRIL, PRINIVIL) 10 mg tablet Take 1 tablet by mouth once daily. omeprazole (PRILOSEC) 20 mg capsule Take 1 capsule by mouth daily before breakfast. 1/2 hr before meal. fenofibrate nanocrystallized (TRICOR) 48 mg tablet Take 1 tablet by mouth once daily. docusate sodium (COLACE) 100 mg capsule Take 100 mg by mouth twice daily. nystatin (NYSTOP) powder Apply 1 application to affected area three times daily. OLANZapine (ZYPREXA) 10 mg tablet Take 2 tablets by mouth daily at bedtime. lamoTRIgine (LAMICTAL) 200 mg tablet Take 300 mg by mouth once daily. clonazePAM (KLONOPIN) 1 mg tablet Take 1 mg by mouth at bedtime as needed. zolpidem (AMBIEN) 10 mg tab Take by mouth at bedtime as needed. venlafaxine XR (EFFEXOR XR) 150 mg tr24 Take by mouth once daily. DULoxetine (CYMBALTA) 60 mg capsule Take 60 mg by mouth twice daily. FERROUS SULFATE (HIGH POTENCY IRON ORAL) Take 1 tablet by mouth once daily. cyanocobalamin (VITAMIN B-12) 500 mcg tablet Take 2 tablets by mouth once daily. CARBATROL 300 MG 12 HR CAP Take two capsules two(2) times daily. ALLERGIES: Biaxin [Clarithromycin], Depakote [Divalproex Sodium], Ibuprofen, Latex, Prozac [Fluoxetine Hcl], Spectazole [Econazole Nitrate], and Wellbutrin [Bupropion Hcl] PERSONAL HISTORY: Social History Tobacco Use Smoking status: Never Smokeless tobacco: Never Substance Use Topics Alcohol use: No Drug use: No FAMILY HISTORY Problem Relation Age of Onset Cancer Father prostate, skin cancer Hypertension Father Coronary Artery Disease Mother stroke and mi Diabetes Mother Heart Sister [place] age 50s Mental illness Brother suicide Mental illness Brother Heart Maternal Grandmother Diabetes Maternal Grandmother Breast Cancer Paternal Grandmother Mental illness Brother hunting accident The review of systems data was entered by the nurse and reviewed by co Nursing Notes: April Disla RN 07/16/2022 1:15 PM Signed REVIEW OF SYSTEMS: General: The patient denies fatigue, denies weight loss, denies weight gain, denies feeling hot, and denies feelings of cold. Eyes: The patient denies glaucoma, denies eye injury/surgery, does not wear glasses or contacts. Ear/Nose/Throat: The patient NOTES allergies, denies hayfever, denies ear infections, and denies bloody noses. Cardiovascular: The patient denies chest pain, denies heart disease, NOTES high blood pressure,denies cardiac stent, denies prior heart attack, denies irregular heart beat, NOTES high cholesterol, NOTES poor circulation, NOTES Left bundle branch block, NOTES claudication, NOTES cold feet, denies peripheral arterial stent. Respiratory: The patient denies tuberculosis, denies pneumonia, denies frequent cough, denies pulmonary embolism, NOTES shortness of breath, and denies coughing up blood. Gastrointestinal: The patient denies difficulty swallowing, NOTES acid reflux, denies ulcers, denies vomiting, denies jaundice/hepatitis, NOTES gallbladder problems, denies black or tarry stools, NOTES hemorrhoids, NOTES bleeding from rectum, denies diverticulitis, NOTES constipation, denies diarrhea, denies loss of stool control, and denies hernias. Kidney/Bladder: The patient NOTES kidney disease, NOTES urine infections, and denies bloody urine. Skin: The patient denies a history of skin cancer, denies bleeding/changing moles, and denies a history of skin rash. Neurologic: The patient denies a history of epilepsy/convulsions, denies headaches, denies head/spinal injuries, and denies stroke/TIA. Psychiatric: The patient NOTES psychiatric medications, denies depression, and denies voices, denies substance abuse. Endocrine: The patient denies thyroid disorders, denies diabetes, and denies hormonal problems. Hematologic: The patient denies a history of bruising, denies bleeding, and NOTES anemia, denies blood clots. Infections: The patient denies a history of measles and mumps, denies rheumatic fever, and denies sexually transmitted diseases. Musculoskeletal: The patient denies back pain/injury, NOTES back problems, denies sciatica, NOTES knee/foot trouble, denies arthritis, or denies gout. When was patient's last Mammogram screening? None Last Colonoscopy: 2014 April Disla RN PHYSICAL EXAMINATION: General: The patient is 57 year old male, well nourished, well hydrated in no acute distress. The patient is oriented to time, place, and person. VITALS: Blood pressure 114/82, pulse 89, temperature 36.6 C (97.8 F), height 188 cm (6' 2), mbsetl320.2 kg (254 lb), SpO2 97 %. Body mass index is 32.61 kg/m . Head: Normal cephalic, atraumatic Eyes: pupils are equally round, sclera are clear/anicteric Neck is supple with no tracheal deviation Respiratory: Normal respiratory excursion and pattern. Abdominal exam: benign Extremities: no clubbing, cyanosis or edema. Neuro: non focal Psych: appropriate but flat affect Assessment IMPRESSION: rectal bleeding - BRBPR PLAN: I have discussed the above with the patient. I have offered colonoscopy , possible biopsies I have explained the procedure to the patient. I have counseled the patient as to the risks of the procedure, including but not limited to: infection, bleeding, injury to any intrabdominal organs such as liver/spleen, perforation of the GI tract,inability to complete the procedure, complications of anesthesia, etc. - the patient understands. The patient wishes to proceed. I have answered all questions to the patient s satisfaction and the patient has no further questions. Diagnoses: (K62.5) BRBPR (bright red blood per rectum) (K64.4) External hemorrhoids I have confirmed and edited as necessary, the PFSH and ROS obtained by others. Consultation requested by Dr. Alpesh Hill for an opinion regarding patient's rectal bleeding. My final recommendations will be communicated back to the requesting physician by way of shared Medical record or letter to requesting physician via US mail. Return to Clinic: The patient will be scheduled for colonoscopy. The patient requests that his sister, Kelley Faye, be contacted for this procedure as she will be the responsible concrete truck driver/occupational therapist home based. Her number is . I spent a total of 31 minutes on the date of the service which included preparing to see the patient with review of any pertinent laboratory studies/radiological imaging/medical records, [id number] care, obtaining oral medical history from the patient in this encounter, counseling and educating the patient/family/caregiver, and ordering and/or scheduling of medications/tests/procedures,and completing appropriate medical documentation. Effie Muñoz MD documented in this encounterK[facility]03-21-2023 Nurse Note* April Disla RN - 07/16/2022 1:11 PM EDT REVIEW OF SYSTEMS: General: The patient denies fatigue, denies weight loss, denies weight gain, denies feeling hot, and denies feelings of cold. Eyes: The patient denies glaucoma, denies eye injury/surgery, does not wear glasses or contacts. Ear/Nose/Throat: The patient NOTES allergies, denies hayfever, denies ear infections, and denies bloody noses. Cardiovascular: The patient denies chest pain, denies heart disease, NOTES high blood pressure,denies cardiac stent, denies prior heart attack, denies irregular heart beat, NOTES high cholesterol, NOTES poor circulation, NOTES Left bundle branch block, NOTES claudication, NOTES cold feet, denies peripheral arterial stent. Respiratory: The patient denies tuberculosis, denies pneumonia, denies frequent cough, denies pulmonary embolism, NOTES shortness of breath, and denies coughing up blood. Gastrointestinal: The patient denies difficulty swallowing, NOTES acid reflux, denies ulcers, denies vomiting, denies jaundice/hepatitis, NOTES gallbladder problems, denies black or tarry stools, NOTES hemorrhoids, NOTES bleeding from rectum, denies diverticulitis, NOTES constipation, denies diarrhea, denies loss of stool control, and denies hernias. Kidney/Bladder: The patient NOTES kidney disease, NOTES urine infections, and denies bloody urine. Skin: The patient denies a history of skin cancer, denies bleeding/changing moles, and denies a history of skin rash. Neurologic: The patient denies a history of epilepsy/convulsions, denies headaches, denies head/spinal injuries, and denies stroke/TIA. Psychiatric: The patient NOTES psychiatric medications, denies depression, and denies voices, denies substance abuse. Endocrine: The patient denies thyroid disorders, denies diabetes, and denies hormonal problems. Hematologic: The patient denies a history of bruising, denies bleeding, and NOTES anemia, denies blood clots. Infections: The patient denies a history of measles and mumps, denies rheumatic fever, and denies sexually transmitted diseases. Musculoskeletal: The patient denies back pain/injury, NOTES back problems, denies sciatica, NOTES knee/foot trouble, denies arthritis, or denies gout. When was patient's last Mammogram screening? None Last Colonoscopy: 2014 April Disla RN documented in this encounterK[facility]03-16-2023 Miscellaneous Notes* Telephone Encounter - Ruby Bales MA - 07/11/2022 11:37 AM EDT Unable to reach patient. Left detailed message on identified VM with results below. Ruby Bales MA * Telephone Encounter - Ruby Bales MA - 07/11/2022 11:35 AM EDT ----- Message from Alpesh Hill MD sent at 07/11/2022 8:01 AM EDT ----- Normal blood counts and iron levels. No change in regimen. documented in this encounterKettering [facility]03-15-2023 History of Present illness Narrative* Alpesh Hill MD - 07/10/2022 11:45 AM EDT Chief Complaint Patient presents with: Rectal Problem: Hemorrhoids, rectal bleeding, seeing bright red blood HPI Jimi Soto is a 57 year old male who presents here today for Above Complaints.. Patient complaining of BRBRP with every BM for the last 2 months at least. States that he usually will see the blood on the toilet paper and states it will cover the whole paper. Occasionally sees blood in the bowl and will turn the water bright red. Has history of hemorrhoids and can feel a lump. Admits to occasional constipation and fatigue. Denies painful BM, abdominal pain, lightheadedness, SOB. Taking iron tablet OTC daily. Past medical history, appointments, medications, allergies reviewed. Previous Medical History PAST MEDICAL HISTORY Diagnosis Date Allergy to environmental factors Dr. Fernandes Anemia Bipolar 1 disorder (HCC) Dr. Stahl Chronic kidney disease (CKD), stage III (moderate) (HCC) Dr. Arthur Essential hypertension Family history of prostate cancer in father GERD (gastroesophageal reflux disease) Hx of gallstones s/p cholecystectomy Hyperlipidemia Irritable bowel syndrome Kidney dysfunction LBBB (left bundle branch block) incomplete. Negative echo in 2018. Obesity (BMI 30.0-34.9) Previous Surgical History PAST SURGICAL HISTORY Procedure Laterality Date APPENDECTOMY remotely COLONOSCOPY FLX DX W/COLLJ SPEC WHEN PFRMD 06/15/2014 Colonoscopy ESOPHAGOGASTRODUODENOSCOPY TRANSORAL DIAGNOSTIC 06/15/2014 EGD INCISION & DRAINAGE ABSCESS SIMPLE/SINGLE both sides of face. KNEE SURGERY HX arthroscopic surgery for cartilage removal. unsure which knee L'SCOPE CHOLECYSTECTOMY 12/2021 Family History FAMILY HISTORY Problem Relation Age of Onset Cancer Father prostate, skin cancer Hypertension Father Coronary Artery Disease Mother stroke and mi Diabetes Mother Heart Sister [place] age 50s Mental illness Brother suicide Mental illness Brother Heart Maternal Grandmother Diabetes Maternal Grandmother Breast Cancer Paternal Grandmother Mental illness Brother hunting accident Patient Allergies ALLERGIES Allergen Reactions Biaxin [Clarithromy* Intolerance Depakote [Divalproe* Intolerance Ibuprofen Intolerance advil Latex Unknown Prozac [Fluoxetine * Intolerance Spectazole [Econazo* Intolerance Wellbutrin [Bupropi* Intolerance CAUSES CATATONIC STATE Current Medications Current Outpatient Medications on File Prior to Visit Medication Sig atorvastatin (LIPITOR) 80 mg tablet Take 1 tablet by mouth daily at bedtime. For cholesterol. lisinopril (ZESTRIL, PRINIVIL) 10 mg tablet Take 1 tablet by mouth once daily. omeprazole (PRILOSEC) 20 mg capsule Take 1 capsule by mouth daily before breakfast. 1/2 hr before meal. fenofibrate nanocrystallized (TRICOR) 48 mg tablet Take 1 tablet by mouth once daily. docusate sodium (COLACE) 100 mg capsule Take 100 mg by mouth twice daily. nystatin (NYSTOP) powder Apply 1 application to affected area three times daily. OLANZapine (ZYPREXA) 10 mg tablet Take 2 tablets by mouth daily at bedtime. lamoTRIgine (LAMICTAL) 200 mg tablet Take 300 mg by mouth once daily. clonazePAM (KLONOPIN) 1 mg tablet Take 1 mg by mouth at bedtime as needed. zolpidem (AMBIEN) 10 mg tab Take by mouth at bedtime as needed. venlafaxine XR (EFFEXOR XR) 150 mg tr24 Take by mouth once daily. DULoxetine (CYMBALTA) 60 mg capsule Take 60 mg by mouth twice daily. FERROUS SULFATE (HIGH POTENCY IRON ORAL) Take 1 tablet by mouth once daily. cyanocobalamin (VITAMIN B-12) 500 mcg tablet Take 2 tablets by mouth once daily. CARBATROL 300 MG 12 HR CAP Take two capsules two(2) times daily. No current facility-administered medications on file prior to visit. Social History Social History Tobacco Use Smoking status: Never Smokeless tobacco: Never Substance Use Topics Alcohol use: No Drug use: No Review of Symptoms REVIEW OF SYSTEMS See HPI EXAM: BP 106/72 Pulse 77 Resp 18 Wt 114.3 kg (252 lb) SpO2 98% BMI 32.83 kg/m General Appearance: Well appearing, alert, in no acute distress, well-hydrated, well nourished.. Skin: Skin color, texture, turgor normal, no suspicious rashes or lesions. Lungs: Lungs clear to auscultation. No wheezing, rhonchi, rales.. Heart: RRR without murmur, gallop, or rubs. No ectopy. Abdomen: Normal abdominal exam, Abdomen soft, non-tender. Bowel sounds normal. No masses, organomegaly. Rectal: Multiple large polyps and fleshy external hemorrhoids without fissures, thrombosis, or active bleeding. No palpable internal hemorrhoids. No BRB on glove. Health Maintenance List DEPRESSION ASSESSMENT due on 04/28/2022 ANNUAL PCP TEAM CHRONIC DISEASE VISIT due on 03/28/2023 BP CONTROLLED (<130/80) due on 03/28/2023 SERUM CREATININE due on 06/24/2023 HEMOGLOBIN/HEMATOCRIT due on 06/24/2023 COLORECTAL CANCER SCREENING due on 06/15/2024 PROSTATE CANCER SCREENING DISCUSSION due on 07/05/2024 DIABETES SCREEN due on 06/24/2025 LIPID SCREEN due on 06/24/2027 DTAP,TDAP,TD(2 - Td or Tdap) due on 01/18/2028 INFLUENZA Completed HEPATITIS C SCREENING Completed HIV SCREENING Completed SHINGRIX VACCINE Completed COVID-19 VACCINE Completed Data reviewed Component Latest Ref Rng & Units 06/24/2022 WBC 3.70 - 11.00 k/uL 4.17 RBC 4.20 - 6.00 m/uL 3.65 (L) Hemoglobin 13.0 - 17.0 g/dL 13.2 Hematocrit 39.0 - 51.0 % 38.0 (L) MCV 80.0 - 100.0 fL 104.1 (H) MCH 26.0 - 34.0 pg 36.2 (H) MCHC 30.5 - 36.0 g/dL 34.7 RDW-CV 11.5 - 15.0 % 13.2 Platelet Count 150 - 400 k/uL 233 MPV 9.0 - 12.7 fL 10.6 Neut% % 34.8 Abs Neut (ANC) 1.45 - 7.50 k/uL 1.45 Lymph% % 50.4 Abs Lymph 1.00 - 4.00 k/uL 2.10 Adams% % 11.0 Abs Adams <0.87 k/uL 0.46 Eosin% % 2.9 Abs Eosin <0.46 k/uL 0.12 Baso% % 0.7 Abs Baso <0.11 k/uL 0.03 Immature Gran % % 0.2 IMMATURE GRANS (ABS) <0.10 k/uL <0.03 NRBC /100 WBC 0.0 Absolute nRBC <0.01 k/uL <0.01 DTYPE Auto Protein, Total 6.3 - 8.0 g/dL 6.5 Albumin 3.9 - 4.9 g/dL 4.3 Calcium 8.5 - 10.2 mg/dL 9.6 Bilirubin, Total 0.2 - 1.3 mg/dL 0.2 Alkaline Phosphatase 38 - 113 U/L 80 AST 14 - 40 U/L 23 ALT 10 - 54 U/L 20 Glucose 74 - 99 mg/dL 112 (H) BUN 9 - 24 mg/dL 14 Creatinine 0.73 - 1.22 mg/dL 1.50 (H) Sodium 136 - 144 mmol/L 142 Potassium 3.7 - 5.1 mmol/L 4.2 Chloride 97 - 105 mmol/L 108 (H) CO2 22 - 30 mmol/L 24 Anion Gap 9 - 18 mmol/L 10 eGFR >=60 mL/min/1.73m 53 (L) Cholesterol, Total <200 mg/dL 156 Triglyceride <150 mg/dL 148 HDL Cholesterol >39 mg/dL 41 Non HDL Cholesterol <130 mg/dL 115 Fasting Time hrs 12 VLDL Cholesterol <30 mg/dL 30 (H) TC:HDL Ratio <5.10 3.80 LDL Cholesterol <100 mg/dL 85 LDL:HDL Ratio <2.54 2.07 Hemoglobin A1C 4.3 - 5.6 % 5.3 Estimated Average Glucose mg/dL 105 Carbamazepine, Free 0.8 - 2.4 ug/mL 1.8 ASSESSMENT/PLAN: 1. BRBPR (bright red blood per rectum) - ICD9: 569.3, ICD10: K62.5 (primary diagnosis) Check labs and FOBT and will refer to general surgery to evaluate for polyp removal and hemorrhoidectomy. Red flags for re-assessment reviewed with patient in detail. Discussed increasing water and fiber intake for his chronic constipation from psych meds. Continue Colace and may use OTC Miralax PRN. - CBC + DIFF - CONSULT TO GENERAL SURGERY - FECAL OCCULT BLOOD TEST - IRON + TIBC - FERRITIN BLD 2. External hemorrhoids - ICD9: 455.3, ICD10: K64.4 - CBC + DIFF - CONSULT TO GENERAL SURGERY - FECAL OCCULT BLOOD TEST - IRON + TIBC - FERRITIN BLD 3. Rectal polyp - ICD9: 569.0, ICD10: K62.1 4. Chronic constipation - ICD9: 564.00, ICD10: K59.09 Alpesh Hill MD documented [facility] encounterK[facility] Miscellaneous Notes* Telephone Encounter - Marilu Whaley - 06/17/2022 6:02 PM EST Patient has been identified by name and date of : Yes Last office visit in this department: 03/28/2022 RX INSTRUCTIONS: Patient aware RX will be sent to pharmacy. No need to notify patient. Patient phones requesting refills as follows: Requested Prescriptions Pending Prescriptions Disp Refills atorvastatin (LIPITOR) 80 mg tablet 90 tablet 1 Sig: Take 1 tablet by mouth daily at bedtime. For cholesterol. Please review and advise. Marilu Whaley documented in this encounterK[facility]09-15-2022 Miscellaneous Notes* Telephone Encounter - RAKESH Wynn - 01/10/2022 11:37 AM EDT Patient has been identified by name and date of : Yes Last office visit in this department: 12/20/2021 RX INSTRUCTIONS: Patient aware RX will be sent to pharmacy. No need to notify patient. Patient phones requesting refills as follows: Requested Prescriptions Pending Prescriptions Disp Refills fenofibrate nanocrystallized (TRICOR) 48 mg tablet 90 tablet 1 Sig: Take 1 tablet by mouth once daily. atorvastatin (LIPITOR) 80 mg tablet 90 tablet 1 Sig: Take 1 tablet by mouth daily at bedtime. For cholesterol. omeprazole (PRILOSEC) 20 mg capsule 90 capsule 1 Sig: Take 1 capsule by mouth daily before breakfast. 1/2 hr before meal. lisinopril (ZESTRIL, PRINIVIL) 10 mg tablet 90 tablet 1 Sig: Take 1 tablet by mouth once daily. Please review and advise. RAKESH Wynn documented in this encounterK[facility]09-02-2022 Miscellaneous Notes* Telephone Encounter - Alissa Calderón RN - 12/28/2021 11:55 AM EDT Ebony with [facility] Preadmission called in and was requesting the EKG results from Pt on 12/20/21. Faxed to # [phone]. documented in this encounterK[facility]08-25-2022 History of Present illness Narrative* Alpesh Hill MD - 12/20/2021 2:30 PM EDT Chief Complaint No chief complaint on file. HPI Jimi Soto is a 56 year old male who presents here today for ER Follow Up.. Patient evaluated at [facility] ED on 12/13 for complaint of 10/10 abdominal pain which started same day. Associated with nausea and vomiting. Workup in the ED showed mildly elevated LFTs. Lactate and CBC normal. Lipase elevated at 821. CT abd/pel showed glasstones and maybe a pill fragment in stomach. Minimal discomfort on exam and pain mostly resolved before being discharged home. Referred to general surgery as outpatient. Since discharge, patient's pain has improved and is pain free today. Patient met with general surgery and they recommended removal of his gallbladder. Scheduled for 01/04. Thinks he needs surgical clearance today. States that he has not had any complications with anesthesia in the past. Able to climbflight of stairs without chest pain or SOB. Denies fever/chills, weight loss, SOB, chest pain, palpitations, LE edema, claudication. Hemoglobin on 12/13 13.3, creatinine: 1.38 Past medical history, appointments, medications, allergies reviewed. Previous Medical History PAST MEDICAL HISTORY Diagnosis Date Allergy to environmental factors Dr. Fernandes Anemia Bipolar 1 disorder (HCC) Dr. Stahl Chronic kidney disease (CKD), stage III (moderate) ([facility]) Dr. Arthur Essential hypertension Family history of prostate cancer in father GERD (gastroesophageal reflux disease) Hyperlipidemia Irritable bowel syndrome Kidney dysfunction Obesity (BMI 30.0-34.9) Previous Surgical History PAST SURGICAL HISTORY Procedure Laterality Date APPENDECTOMY remotely COLONOSCOPY FLX DX W/COLLJ SPEC WHEN PFRMD 06/15/14 Colonoscopy ESOPHAGOGASTRODUODENOSCOPY TRANSORAL DIAGNOSTIC 06/15/14 EGD INCISION & DRAINAGE ABSCESS SIMPLE/SINGLE both sides of face. KNEE SURGERY HX arthroscopic surgery for cartilage removal. unsure which knee Family History FAMILY HISTORY Problem Relation Age of Onset Cancer Father prostate, skin cancer Hypertension Father Coronary Artery Disease Mother stroke and mi Diabetes Mother Heart Sister [place] age 50s Mental illness Brother suicide Mental illness Brother Heart Maternal Grandmother Diabetes Maternal Grandmother Breast Cancer Paternal Grandmother Mental illness Brother hunting accident Patient Allergies ALLERGIES Allergen Reactions Biaxin [Clarithromy* Intolerance Depakote [Divalproe* Intolerance Ibuprofen Intolerance advil Latex Unknown Prozac [Fluoxetine * Intolerance Spectazole [Econazo* Intolerance Wellbutrin [Bupropi* Intolerance CAUSES CATATONIC STATE Current Medications Current Outpatient Medications on File Prior to Visit Medication Sig atorvastatin (LIPITOR) 80 mg tablet Take 1 tablet by mouth daily at bedtime. For cholesterol. lisinopril (ZESTRIL, PRINIVIL) 10 mg tablet Take 1 tablet by mouth once daily. omeprazole (PRILOSEC) 20 mg capsule Take 1 capsule by mouth daily before breakfast. 1/2 hr before meal. fenofibrate nanocrystallized (TRICOR) 48 mg tablet Take 1 tablet by mouth once daily. docusate sodium (COLACE) 100 mg capsule Take 100 mg by mouth twice daily. nystatin (NYSTOP) powder Apply 1 application to affected area three times daily. OLANZapine (ZYPREXA) 10 mg tablet Take 2 tablets by mouth daily at bedtime. lamoTRIgine (LAMICTAL) 200 mg tablet Take 300 mg by mouth once daily. clonazePAM (KLONOPIN) 1 mg tablet Take 1 mg by mouth at bedtime as needed. zolpidem (AMBIEN) 10 mg tab Take by mouth at bedtime as needed. venlafaxine XR (EFFEXOR XR) 150 mg tr24 Take by mouth once daily. DULoxetine (CYMBALTA) 60 mg capsule Take 60 mg by mouth twice daily. FERROUS SULFATE (HIGH POTENCY IRON ORAL) Take 1 tablet by mouth once daily. cyanocobalamin (VITAMIN B-12) 500 mcg tablet Take 2 tablets by mouth once daily. CARBATROL 300 MG 12 HR CAP Take two capsules two(2) times daily. No current facility-administered medications on file prior to visit. Social History Social History Tobacco Use Smoking status: Never Smokeless tobacco: Never Substance Use Topics Alcohol use: No Drug use: No Review of Symptoms REVIEW OF SYSTEMS See HPI EXAM: BP 110/72 Pulse 84 Resp 16 Wt 118.3 kg (260 lb 12.8 oz) SpO2 93% BMI 33.48 kg/m General Appearance: Well appearing, alert, in no acute distress, well-hydrated, well nourished.. Skin: Skin color, texture, turgor normal, no suspicious rashes or lesions. Lungs: Lungs clear to auscultation. No wheezing, rhonchi, rales.. Heart: RRR without murmur, gallop, or rubs. No ectopy. Abdomen: Normal abdominal exam, Abdomen soft, non-tender. Bowel sounds normal. No masses, organomegaly. Extremities: No deformities, edema, skin discoloration, clubbing or cyanosis. Good capillary refill. . Health Maintenance List HEPATITIS B(1 of 3 - 3-dose series) Never done DEPRESSION SCREENING due on 09/22/2021 INFLUENZA(1) due on 12/27/2021 SERUM CREATININE due on 09/20/2022 HEMOGLOBIN/HEMATOCRIT due on 09/20/2022 ANNUAL PCP TEAM CHRONIC DISEASE VISIT due on 09/26/2022 BP CONTROLLED (<130/80) due on 12/13/2022 COLORECTAL CANCER SCREENING due on 06/15/2024 PROSTATE CANCER SCREENING DISCUSSION due on 07/05/2024 DIABETES SCREEN due on 09/20/2024 LIPID SCREEN due on 09/20/2026 DTAP,TDAP,TD(2 - Td or Tdap) due on 01/18/2028 HEPATITIS C SCREENING Completed HIV SCREENING Completed SHINGRIX VACCINE Completed COVID-19 VACCINE Completed Data reviewed EKG: NSR at 78 bpm, Incomplete LBBB, borderline EKG. (Unchanged compared to 2018). ASSESSMENT/PLAN: 1. Generalized abdominal pain - ICD9: 789.07, ICD10: R10.84 (primary diagnosis) 2/2 gallstones. Will have patient follow up with general surgery for cholecystectomy. Discussed avoidance of fatty foods. Red flags for re-assessment reviewed with patient in detail. 2. Gallstones - ICD9: 574.20, ICD10: K80.20 See above. 3. Pre-operative clearance - ICD9: V72.84, ICD10: Z01.818 Based on the patient's history, physical, functional status, and ACS risk score, he has an 0.4% chance of a serious adverse cardiac event. This is average risk for his age an the planned operation. The risk is below the recommended threshold for further evaluation. Therefore, I do not recommend further preoperative testing and he may proceed with the planned operation. I recommend this risk assessment be incorporated into the overall discussion on risks and benefits of this operation. - ECG COMPLETE Alpesh Hill MD documented in this encounterK[facility]08-18-2022 History of Present illness Narrative* Amber Tucker APRN.KUSH - 12/13/2021 1:20 PM EDT Patient came in with complaints of severe abdominal pain said it was a 10/10 and feels like it is alittle less now but never had this happen before. Said its all over his abdomen and feels very firm. Said it making his nauseated. Abdomen is firm upon palpation. At this time patient is being sent to the ER for evaluation and does not want the squad called. He wants to take himself. documented in this encounterK[facility]06-01-2022 History of Present illness Narrative* Alpesh Hill MD - 09/26/2021 2:14 PM EDT Chief Complaint Patient presents with: Recheck: 6 months HPI Jimi Soto is a 56 year old male who presents here today for Above Complaints.. Patient following up with Dr. Stahl for bipolar disorder with next appointment later this month. Following up every 2-3 months. States that current regimen is working well to control depression andmanic episodes. Denies SI/HI, manic episodes. Had f/u appointment with Dr. Arthur in November and scheduled for 1 year check up at that time. Notedrenal function still in stage III CKD range thought to be related to [place] in the past. No changes to current regimen. Has been avoiding NSAIDs. Eating low sodium diet. Getting weekly allergy shots from Dr. Fernandes. Working well to control symptoms. Still gets itchy/watery eyes. Denies nasal congestion, rhinorrhea, sneezing, sore throat. GERD: taking omeprazole daily and reflux has been well controlled. Denies heartburn, dry cough, dysphagia, odynophagia. Total cholesterol improved on high intensity Lipitor. Denies recurrent yamila rash. Working on keeping inguinal region dry. Past medical history, appointments, medications, allergies reviewed. Previous Medical History PAST MEDICAL HISTORY Diagnosis Date Allergy to environmental factors Dr. Fernandes Anemia Bipolar 1 disorder (HCC) Dr. Stahl Chronic kidney disease (CKD), stage III (moderate) ([facility]) Dr. Arthur Essential hypertension Family history of prostate cancer in father GERD (gastroesophageal reflux disease) Hyperlipidemia Irritable bowel syndrome Kidney dysfunction Obesity (BMI 30.0-34.9) Previous Surgical History PAST SURGICAL HISTORY Procedure Laterality Date APPENDECTOMY remotely COLONOSCOPY FLX DX W/COLLJ SPEC WHEN PFRMD 06/15/14 Colonoscopy ESOPHAGOGASTRODUODENOSCOPY TRANSORAL DIAGNOSTIC 06/15/14 EGD INCISION & DRAINAGE ABSCESS SIMPLE/SINGLE both sides of face. KNEE SURGERY HX arthroscopic surgery for cartilage removal. unsure which knee Family History FAMILY HISTORY Problem Relation Age of Onset Cancer Father prostate, skin cancer Hypertension Father Coronary Artery Disease Mother stroke and mi Diabetes Mother Heart Sister [place] age 50s Mental illness Brother suicide Mental illness Brother Heart Maternal Grandmother Diabetes Maternal Grandmother Breast Cancer Paternal Grandmother Mental illness Brother hunting accident Patient Allergies ALLERGIES Allergen Reactions Biaxin [Clarithromy* Intolerance Depakote [Divalproe* Intolerance Ibuprofen Intolerance advil Latex Unknown Prozac [Fluoxetine * Intolerance Spectazole [Econazo* Intolerance Wellbutrin [Bupropi* Intolerance CAUSES CATATONIC STATE Current Medications Current Outpatient Medications on File Prior to Visit Medication Sig fenofibrate nanocrystallized (TRICOR) 48 mg tablet Take 1 tablet by mouth once daily. omeprazole (PRILOSEC) 20 mg capsule Take 1 capsule by mouth daily before breakfast. 1/2 hr before meal. lisinopril (ZESTRIL, PRINIVIL) 10 mg tablet Take 1 tablet by mouth once daily. atorvastatin (LIPITOR) 80 mg tablet Take 1 tablet by mouth daily at bedtime. For cholesterol. docusate sodium (COLACE) 100 mg capsule Take 100 mg by mouth twice daily. nystatin (NYSTOP) powder Apply 1 application to affected area three times daily. OLANZapine (ZYPREXA) 10 mg tablet Take 2 tablets by mouth daily at bedtime. lamoTRIgine (LAMICTAL) 200 mg tablet Take 300 mg by mouth once daily. clonazePAM (KLONOPIN) 1 mg tablet Take 1 mg by mouth at bedtime as needed. zolpidem (AMBIEN) 10 mg tab Take by mouth at bedtime as needed. venlafaxine XR (EFFEXOR XR) 150 mg tr24 Take by mouth once daily. DULoxetine (CYMBALTA) 60 mg capsule Take 60 mg by mouth twice daily. FERROUS SULFATE (HIGH POTENCY IRON ORAL) Take 1 tablet by mouth once daily. cyanocobalamin (VITAMIN B-12) 500 mcg tab Take 2 tablets by mouth once daily. CARBATROL 300 MG 12 HR CAP Take two capsules two(2) times daily. No current facility-administered medications on file prior to visit. Social History Social History Tobacco Use Smoking status: Never Smoker Smokeless tobacco: Never Used Vaping Use Vaping Use: Not on file Substance Use Topics Alcohol use: No Drug use: No Review of Symptoms REVIEW OF SYSTEMS GENERAL: No weight loss, malaise or fevers RESPIRATORY: Negative for cough, hemoptysis, wheezing, COPD, dyspnea or shortness of breath CARDIOVASCULAR: Negative for chest pain, leg swelling, hypertension, CHF or palpitations GI: No nausea, vomiting, or diarrhea SKIN: Negative for lesions, rash, and itching EXAM: BP 124/80 Pulse 78 Resp 16 Wt 119.3 kg (263 lb) BMI 33.77 kg/m General Appearance: Well appearing, alert, in no acute distress, well-hydrated, well nourished.. Skin: Skin color, texture, turgor normal, no suspicious rashes or lesions. Lungs: Lungs clear to auscultation. No wheezing, rhonchi, rales.. Heart: RRR without murmur, gallop, or rubs. No ectopy. Abdomen: Normal abdominal exam, Abdomen soft, non-tender. Bowel sounds normal. No masses, organomegaly. Extremities: No deformities, edema, skin discoloration, clubbing or cyanosis. Good capillary refill. . Health Maintenance List DEPRESSION SCREENING due on 09/22/2021 ANNUAL PCP TEAM CHRONIC DISEASE VISIT due on 04/16/2022 BP CONTROLLED (<130/80) due on 05/11/2022 SERUM CREATININE due on 09/20/2022 HEMOGLOBIN/HEMATOCRIT due on 09/20/2022 COLORECTAL CANCER SCREENING due on 06/15/2024 PROSTATE CANCER SCREENING DISCUSSION due on 07/05/2024 DIABETES SCREEN due on 09/20/2024 LIPID SCREEN due on 09/20/2026 DTAP,TDAP,TD(2 - Td or Tdap) due on 01/18/2028 INFLUENZA Completed HEPATITIS C SCREENING Completed HIV SCREENING Completed SHINGRIX VACCINE Completed COVID-19 VACCINE Completed Data reviewed Component Latest Ref Rng & Units 09/18/2021 09/20/2021 WBC 3.70 - 11.00 k/uL 4.36 RBC 4.20 - 6.00 m/uL 4.05 (L) Hemoglobin 13.0 - 17.0 g/dL 14.0 Hematocrit 39.0 - 51.0 % 41.8 MCV 80.0 - 100.0 fL 103.2 (H) MCH 26.0 - 34.0 pg 34.6 (H) MCHC 30.5 - 36.0 g/dL 33.5 RDW-CV 11.5 - 15.0 % 12.5 Platelet Count 150 - 400 k/uL 206 MPV 9.0 - 12.7 fL 10.1 Neut% % 33.6 Abs Neut (ANC) 1.45 - 7.50 k/uL 1.47 Lymph% % 50.5 Abs Lymph 1.00 - 4.00 k/uL 2.20 Adams% % 11.0 Abs Adams <0.87 k/uL 0.48 Eosin% % 3.7 Abs Eosin <0.46 k/uL 0.16 Baso% % 0.7 Abs Baso <0.11 k/uL 0.03 Immature Gran % % 0.5 IMMATURE GRANS (ABS) <0.10 k/uL <0.03 NRBC /100 WBC 0.0 Absolute nRBC <0.01 k/uL <0.01 DTYPE Auto Protein, Total 6.3 - 8.0 g/dL 6.6 Albumin 3.9 - 4.9 g/dL 4.4 Calcium 8.5 - 10.2 mg/dL 9.7 Bilirubin, Total 0.2 - 1.3 mg/dL 0.2 Alkaline Phosphatase 38 - 113 U/L 79 AST 14 - 40 U/L 25 ALT 10 - 54 U/L 24 Glucose 74 - 99 mg/dL 114 (H) BUN 9 - 24 mg/dL 17 Creatinine 0.73 - 1.22 mg/dL 1.51 (H) Sodium 136 - 144 mmol/L 144 Potassium 3.7 - 5.1 mmol/L 5.1 Chloride 97 - 105 mmol/L 106 (H) CO2 22 - 30 mmol/L 25 Anion Gap 9 - 18 mmol/L 13 eGFR >=60 mL/min/1.73m 53 (L) Cholesterol, Total <200 mg/dL 155 Triglyceride <150 mg/dL 181 (H) HDL Cholesterol >39 mg/dL 40 Non HDL Cholesterol <130 mg/dL 115 Fasting Time hrs 12 VLDL Cholesterol <30 mg/dL 36 (H) TC:HDL Ratio <5.10 3.88 LDL Cholesterol <100 mg/dL 79 LDL:HDL Ratio <2.54 1.98 HIV 12 Combo (Ag/Ab) Nonreactive Nonreactive HIV 1/2 Ab HIV Interpretation Hemoglobin A1C 4.3 - 5.6 % 5.5 Estimated Average Glucose mg/dL 111 Carbamazepine 4.0 - 12.0 ug/mL 8.4 ASSESSMENT/PLAN: 1. Essential hypertension - ICD9: 401.9, ICD10: I10 (primary diagnosis) - good control - Continue current medication(s) - Encouraged dietary sodium restriction/DASH diet - Recommended regular aerobic exercise. - Reviewed risks of HTN and principles of treatment - Goal of BP <140/90 2. Mixed hyperlipidemia - ICD9: 272.2, ICD10: E78.2 - good control - Continue current medication. - Encouraged following a low fat, low cholesterol diet. - Discussed the benefits of regular aerobic exercise and weight loss. - ATORVASTATIN 80 MG TABLET 3. Bipolar affective disorder, current episode mixed, current episode severity unspecified (HCC) - ICD9: 296.60, ICD10: F31.60 Controlled on current regimen as prescribed by Dr. Stahl. Will fax results to his office and request their records. Red flags for re-assessment reviewed with patient in detail. 4. Stage 3 chronic kidney disease, unspecified whether stage 3a or 3b CKD (HCC) - ICD9: 585.3, ICD10: N18.30 Stable. Continue current regimen and follow up with nephrology in November. 5. Gastroesophageal reflux disease, unspecified whether esophagitis present - ICD9: 530.81, ICD10: K21.9 - Continue treatment with Prilosec 20 mg QD 6. Allergy to environmental factors - ICD9: V15.09, ICD10: Z91.09 Improved with allergy shots. 7. Obesity, Class I, BMI 30-34.9 - ICD9: 278.00, ICD10: E66.9 Stable - Behavioral intervention Alpesh Hill MD [facility] Miscellaneous Notes* Telephone Encounter - Tess Escalera Ma - 09/19/2021 4:31 PM EDT Patient was notified Tess Escalera Ma * Telephone Encounter - Rose Marie Johns APRN.CNP - 09/19/2021 4:23 PM EDT Please call patient and let him know his HIV testing was negative. Thanks, Rose Marie Johns APRN.CNP [facility] Miscellaneous Notes* Telephone Encounter - Alpesh Hill MD - 05/11/2021 1:41 PM EST rx sent. * Telephone Encounter - Franklin Albarran Ma - 05/11/2021 1:30 PM EST Please file pending medication Detailed message left advising patient of message. Franklin Albarran Ma * Telephone Encounter - Alpesh Hill MD - 05/11/2021 1:13 PM EST Repeat BP in good range. No change to regimen. * Telephone Encounter - Yoon Miramontes LPN - 05/11/2021 1:11 PM EST Manual Readin/78 Pulse: 98 Reason for blood pressure check - Last BP elevated and Medication adjustment Patient is: Taking medication as prescribed Yes Took medication today Yes If no, date medication last taken N/A Experiencing side effects No BP was elevated at last appt 04/16/21. Was started on Lisinopril 10mg daily. Tolerating medication well. Denies any chest pain, shortness of breath, dizziness, or headaches. Daily caffeine use; none today. No personal history of tobacco use; no current exposure. Alert and oriented. Pt has been identified by name and birthdate: Yes Allergies reviewed: Yes Latex allergy: no. Medication - prescribed and OTC reviewed and updated: Yes Do you need any prescription refills prior to your next visit: Yes Health Maintenance: Reviewed and not up to date and provider notified Patient advised to continue with current medications and would be contacted if any further instructions after review by PCP. Yoon Miramontes LPN [facility] History of Present illness Narrative* Redd Zamora RT(R) - 10/25/2020 6:00 PM EDT Radiology Service Progress Note PATIENT NAME: Jimi Soto DATE OF SERVICE: October 25, 2020 TIME: 5:51 PM PATIENT IDENTITY VERIFICATION COMPLETED USING TWO (2) IDENTIFIERS: Name and Date of confirmedby patient verbally. FALL SCREENING: Has the patient had 2 falls in the last year or 1 fall with injury or currently using an Ambulatory Assistive Device (Walker, Cane, Wheelchair, Crutches, etc.)? Yes, Patient High Riskfor Falls What interventions were put in place to prevent falls during this visit? Increased Observations by Caregivers PATIENT GENDER DATA: Male PATIENT RELEVANT IMPLANT DATA REVIEWED: Not Applicable RADIOLOGY DEPARTMENT: General X-ray: Exam(s) Completed: Upper Extremity X- Ray(s): Fingers/Thumb, left PERIPHERAL IV DATA: Not applicable SIGNED BY: RT Paco(R) October 25, 2020 5:51 PM [facility] Diagnosis Essential hypertension- Primary Unspecified essential hypertension Mixed hyperlipidemia Bipolar affective disorder, current episode mixed, current episode severity unspecified (HCC) Stage 3 chronic kidney disease, unspecified whether stage 3a or 3b CKD (HCC) Gastroesophageal reflux disease, unspecified whether esophagitis present Allergy to environmental factors Other allergy, other than to medicinal agents Obesity, Class I, BMI 30-34.9 Obesity, unspecified documented in this encounter [facility] noteNo assessment information availableWWright-[facility] Work Phone: Evaluation note* Diagnosis Generalized abdominal pain- Primary Abdominal pain, generalized documented in this encounter [facility]* Diagnosis Generalized abdominal pain- Primary Abdominal pain, generalized Gallstones Calculus of gallbladder without mention of cholecystitis or obstruction Pre-operative clearance Preoperative examination, unspecified documented in this encounter [facility] note* Diagnosis Onset Date Resolution Status Elevated LFTs acute Elevated lipase [facility] Work Phone: Evaluation note* Diagnosis Mixed hyperlipidemia documented in this encounter [facility]* Diagnosis Mixed hyperlipidemia documented in this encounter [facility]* Diagnosis BRBPR (bright red blood per rectum)- Primary Hemorrhage of rectum and anus External hemorrhoids External hemorrhoids without mention of complication Rectal polyp Anal and rectal polyp Chronic constipation Unspecified constipation Bipolar affective disorder, current episode mixed, current episode severity unspecified (HCC) Chronic kidney disease, stage 3a (HCC) Type 2 diabetes mellitus without complications (HCC) Type II or unspecified type diabetes mellitus without mention of complication, not stated as uncontrolled [facility]* Diagnosis BRBPR (bright red blood per rectum) Hemorrhage of rectum and anus External hemorrhoids External hemorrhoids without mention of complication [facility] Acute bilateral knee pain- Primary Fall, initial encounter Primary osteoarthritis of both knees Primary localized osteoarthrosis, lower leg Injury of right thigh, initial encounter [facility]* Diagnosis Chest pain, unspecified type- Primary [facility]* Diagnosis Hemorrhoids, internal, with bleeding- Primary Internal hemorrhoids with other complication [facility]* Diagnosis Intertrigo Other specified erythematous condition [facility]* Diagnosis Concern about hernia without diagnosis- Primary Person with feared complaint in whom no diagnosis was made [facility]* Diagnosis Chest pain, unspecified type [facility]* Diagnosis Episodic lightheadedness- Primary Dizziness and giddiness Unsteady gait when walking Shaking Abnormal involuntary movements [facility]* Diagnosis Macrocytic anemia- Primary Unspecified deficiency anemia [facility]* Diagnosis Macrocytic anemia- Primary Unspecified deficiency anemia [facility] Diagnosis Episodic lightheadedness- Primary Dizziness and giddiness Unsteady gait when walking Essential hypertension Unspecified essential hypertension BRBPR (bright red blood per rectum) Hemorrhage of rectum and anus [facility]* Diagnosis Macrocytic anemia- Primary Unspecified deficiency anemia [facility]* Diagnosis Viral bronchitis- Primary Acute bronchitis URI with cough and congestion Lymphadenopathy, cervical Enlargement of lymph nodes Viral bronchitis Acute bronchitis URI with cough and congestion [facility]* Diagnosis Viral bronchitis- Primary Acute bronchitis URI with cough and congestion Lymphadenopathy, cervical Enlargement of lymph nodes Localized enlarged lymph nodes Enlargement of lymph nodes Lymphadenopathy, cervical Enlargement of lymph nodes Localized enlarged lymph nodes Enlargement of lymph nodes [facility]* Diagnosis Lymphadenopathy, cervical Enlargement of lymph nodes Localized enlarged lymph nodes Enlargement of lymph nodes documented in this encounter [facility]* Diagnosis Chest wall discomfort- Primary Painful respiration Dry mouth Disturbance of salivary secretion [facility]* Diagnosis Macrocytic anemia- Primary Unspecified deficiency anemia documented [facility]* Diagnosis Encounter for medical assessment- Primary [facility]* Diagnosis Positive Romberg test- Primary Other abnormal clinical finding Unsteady gait Abnormality of gait Essential hypertension Unspecified essential hypertension Dizziness Dizziness and giddiness documented [facility] this encounter [facility]* Diagnosis Viral bronchitis Acute bronchitis URI with cough and congestion [facility]* Diagnosis Chest pain, unspecified type [facility]* Diagnosis Acute bilateral knee pain [facility] Diagnosis Pain of left thumb Pain in limb [facility]* Diagnosis Lightheadedness- Primary Dizziness and giddiness Blurry vision Other specified visual disturbances Speech disturbance, unspecified type [facility]* Diagnosis Positive Romberg test Other abnormal clinical finding Unsteady gait Abnormality of gait Dizziness Dizziness and giddiness [facility]* Diagnosis Bilateral impacted cerumen- Primary Impacted cerumen Ear pain, bilateral [facility]* Diagnosis Cerebral hemorrhage (HCC)- Primary Intracerebral hemorrhage Abnormal finding on MRI of brain Nonspecific (abnormal) findings on radiological and other examination of skull and head Cognitive decline Unspecified persistent mental disorders due to conditions classified elsewhere Cerebral amyloid angiopathy (CODE) Balance problems Other symptoms involving nervous and musculoskeletal systems [facility]* Diagnosis Cognitive decline Unspecified persistent mental disorders due to conditions classified elsewhere Balance problems Other symptoms involving nervous and musculoskeletal systems [facility]* Diagnosis Cognitive decline- Primary Unspecified persistent mental disorders due to conditions classified elsewhere Cerebral hemorrhage (HCC) Intracerebral hemorrhage Hereditary cerebral amyloid angiopathy (HCC) (HCC) Other amyloidosis Cerebral amyloid angiopathy (CODE) [facility]* Diagnosis Vitamin D deficiency- Primary Unspecified vitamin D deficiency [facility]* Diagnosis Annual wellness visit- Primary Penile pain Unspecified disorder of penis Testicular pain, right Unspecified disorder of male genital organs Cerebral hemorrhage (HCC) Intracerebral hemorrhage Balance problems Other symptoms involving nervous and musculoskeletal systems Essential hypertension Unspecified essential hypertension Mixed hyperlipidemia Stage 3a chronic kidney disease (HCC) Gastroesophageal reflux disease, unspecified whether esophagitis present Anemia, unspecified type Obesity, Class I, BMI 30-34.9 Obesity, unspecified Bipolar affective disorder, current episode mixed, current episode severity unspecified (HCC) Vitamin D deficiency Unspecified vitamin D deficiency [facility]* Diagnosis Cognitive decline- Primary Unspecified persistent mental disorders due to conditions classified elsewhere Balance problems Other symptoms involving nervous and musculoskeletal systems [facility]* Diagnosis Cognitive decline- Primary Unspecified persistent mental disorders due to conditions classified elsewhere Cerebral hemorrhage (HCC) Intracerebral hemorrhage Hereditary cerebral amyloid angiopathy (HCC) (HCC) Other amyloidosis Cerebral amyloid angiopathy (CODE) [facility]* Diagnosis Cognitive decline- Primary Unspecified persistent mental disorders due to conditions classified elsewhere Balance problems Other symptoms involving nervous and musculoskeletal systems [facility]* Diagnosis Cognitive decline- Primary Unspecified persistent mental disorders due to conditions classified elsewhere Balance problems Other symptoms involving nervous and musculoskeletal systems [facility]* Diagnosis Cognitive decline- Primary Unspecified persistent mental disorders due to conditions classified elsewhere [facility]* Diagnosis Seizure (HCC)- Primary Other convulsions [facility] Diagnosis Balance problems- Primary Other symptoms involving nervous and musculoskeletal systems Cognitive decline Unspecified persistent mental disorders due to conditions classified elsewhere [facility]* Diagnosis Cognitive decline- Primary Unspecified persistent mental disorders due to conditions classified elsewhere Cerebral hemorrhage (HCC) Intracerebral hemorrhage Hereditary cerebral amyloid angiopathy (HCC) (HCC) Other amyloidosis Cerebral amyloid angiopathy (CODE) [facility]* Diagnosis Cognitive decline- Primary Unspecified persistent mental disorders due to conditions classified elsewhere Cerebral hemorrhage (HCC) Intracerebral hemorrhage Hereditary cerebral amyloid angiopathy (HCC) (HCC) Other amyloidosis Cerebral amyloid angiopathy (CODE) [facility]* Diagnosis Balance problems- Primary Other symptoms involving nervous and musculoskeletal systems Cognitive decline Unspecified persistent mental disorders due to conditions classified elsewhere [facility]* Diagnosis Spinal stenosis of lumbar region, unspecified whether neurogenic claudication present- Primary Pain in both lower extremities [facility]* Diagnosis Balance problems- Primary Other symptoms involving nervous and musculoskeletal systems Cognitive decline Unspecified persistent mental disorders due to conditions classified elsewhere [facility]* Diagnosis Pain in both lower extremities [facility]* Diagnosis Neuropathy- Primary Mononeuritis of unspecified site [facility]* Diagnosis Spinal stenosis of lumbar region, unspecified whether neurogenic claudication present [facility]* Diagnosis Spinal stenosis of lumbar region, unspecified whether neurogenic claudication present- Primary Bilateral leg pain Pain in limb [facility]* Diagnosis Cerebral hemorrhage (HCC) Intracerebral hemorrhage Abnormal finding on MRI of brain Nonspecific (abnormal) findings on radiological and other examination of skull and head Cognitive decline Unspecified persistent mental disorders due to conditions classified elsewhere Cerebral amyloid angiopathy (CODE) Balance problems Other symptoms involving nervous and musculoskeletal systems Bipolar disorder in partial remission, most recent episode unspecified type (HCC) Stage 3 chronic kidney disease, unspecified whether stage 3a or 3b CKD (HCC) Essential (primary) hypertension Unspecified essential hypertension [facility]* Diagnosis Spinal stenosis of lumbar region, unspecified whether neurogenic claudication present- Primary Pain in both lower extremities [facility] Diagnosis Spinal stenosis of lumbar region without neurogenic claudication- Primary Spinal stenosis, lumbar region, without neurogenic claudication Pain in both lower extremities [facility]* Diagnosis Seizure (HCC) Other convulsions [facility]* Diagnosis Spinal stenosis of lumbar region without neurogenic claudication- Primary Spinal stenosis, lumbar region, without neurogenic claudication Pain in both lower extremities [facility]* Diagnosis Foot pain, left- Primary Pain in limb Foot pain, left Pain in limb [facility] Diagnosis Foot pain, left Pain in limb [facility]* Diagnosis Neuropathy- Primary Mononeuritis of unspecified site Diminished pulses in lower extremity Other symptoms involving cardiovascular system Abrasion Abrasion or friction burn of other, multiple, and unspecified sites, without mention of infection [facility]* Diagnosis Encounter for long-term (current) use of medications- Primary Encounter for long-term (current) use of other medications Cognitive decline Unspecified persistent mental disorders due to conditions classified elsewhere Abnormal finding on MRI of brain Nonspecific (abnormal) findings on radiological and other examination of skull and head Cerebral amyloid angiopathy (CODE) residential current use of 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 Malaise and fatigue Other malaise and fatigue Spinal stenosis of lumbar region, unspecified whether neurogenic claudication present Neuropathy Mononeuritis of unspecified site Snoring Other dyspnea and respiratory abnormality Daytime sleepiness Sleep apnea-like behavior MAXIMUS (obstructive sleep apnea) Obstructive sleep apnea (adult) (pediatric) documented [facility] this [facility]* Diagnosis Hyperkalemia- Primary Hyperpotassemia documented in this encounter [facility] for referral (narrative)* Outpatient Procedure (Routine) - Authorized Specialty Diagnoses / Procedures Referred By Nicko lam [facility] Diagnoses Pre-operative clearance Procedures ECG COMPLETE ECG ROUTINE ECG W/LEAST 12 LDS W/I&R Alpesh Hill MD [address] [place] [address] [facility] [address] [place] [address] Referral ID Status Reason Start Date Expiration Date Visits Requested Visits Authorized [id number] Authorized Auto-Generat ed Referral 12/20/2021 12/20/2022 1 1 [facility] for referral (narrative)* Diagnostic Procedure Only (Routine) - Closed Specialty Diagnoses / Procedures Referred By Nicko lam Referred To Contact XR IMAGING Diagnoses Acute bilateral knee pain Procedures XR KNEE GENERAL 4V AP BOTH/PA BOTH/LAT/MERC BILATERAL RADIOLOGIC EXAM KNEE COMPLETE 4/MORE VIEWS Alpesh Hill MD [address] [place] [address] Xr Imaging Referral ID Status Reason Start Date Expiration Date V isits Requested Visits Authorized [id number] Closed Auto-Generate d Referral 10/15/2022 11/14/2023 1 1 [facility] for referral (narrative)* Outpatient Procedure (Urgent) - Authorized Specialty Diagnoses / Procedures Referred By Contac t Referred To Contact [facility] Diagnoses Chest pain, unspecified type Procedures ECHO ECHO TTHRC R-T 2D W/WOM-MODE COMPL SPEC&COLR D Alpesh Hill MD [address] [place] [address] [address] Referral ID Status Reason Start Date Expiration Date Visits Requested Visits Authorized [id number] Authorized Auto-Generat ed Referral 11/05/2022 11/05/2023 1 1 * Outpatient Procedure (Routine) - Closed Specialty Diagnoses / Procedures [facility] Diagnoses Chest pain, unspecified type Procedures ECG COMPLETE ECG ROUTINE ECG W/LEAST 12 LDS W/I&R Alpesh Hill MD [address] [place] [address] [id number] [place] [address] Referral ID Status Reason Start Date Expiration Date V isits Requested Visits Authorized [id number] Closed Auto-Generate d Referral 11/05/2022 11/05/2023 1 1 [facility] for referral (narrative)* Diagnostic Procedure Only (Urgent) - Closed Specialty Diagnoses / Procedures Referred By Contac t Referred To Contact US IMAGING Diagnoses Lymphadenopathy, cervical Localized enlarged lymph nodes Procedures US HEAD/NECK SOFT TISSUE OTHER US SOFT TISSUE HEAD & NECK REAL TIME IMGE DOCAlpesh Garcia MD [facility] [place] [address] [place] [address] Referral ID Status Reason Start Date Expiration Date V isits Requested Visits Authorized [id number] Closed Auto-Generate d Referral 11/06/2023 12/05/2024 1 1 [facility] for referral (narrative)* Diagnostic Procedure Only (Urgent) - Closed Specialty Diagnoses / Procedures Referred By Contac t Referred To Contact [facility] Diagnoses Lymphadenopathy, cervical Localized enlarged lymph nodes Procedures US HEAD/NECK SOFT TISSUE OTHER US SOFT TISSUE HEAD & NECK REAL TIME IMGE DOCM Alpesh Hill MD [address] [place] [address] [place] [address] Referral ID Status Reason Start Date Expiration Date V isits Requested Visits Authorized [id number] Closed Auto-Generate d Referral 11/06/2023 12/05/2024 1 1 [facility] for referral (narrative)* Outpatient Procedure (Routine) - New Request Specialty Diagnoses / Procedures Referred By Contac t Ref[facility] Diagnoses Chest wall discomfort Procedures ECG COMPLETE ECG ROUTINE ECG W/LEAST 12 LDS W/I&R Rose Marie Johns APRN.CNP [address] [place] [address] [facility] [address] [place] [id number] Referral ID Status Reason Start Date Expiration Date Visits Requested Visits Authorized [id number] New Request Auto-Generat ed Referral 12/03/2023 12/02/2024 1 1 [facility] for referral (narrative)* Diagnostic Procedure Only (Routine) - Closed Specialty Diagnoses / Procedures Referred By Nicko t Referred To Contact XR IMAGING Diagnoses Acute bilateral knee pain Procedures XR KNEE GENERAL 4V AP BOTH/PA BOTH/LAT/MERC BILATERAL RADIOLOGIC EXAM KNEE COMPLETE 4/MORE VIEWS Alpesh Hill MD [address] [place] [address] [place] [address] Referral ID Status Reason Start Date Expiration Date V isits Requested Visits Authorized [id number] Closed Auto-Generate d Referral 10/15/2022 11/14/2023 1 1 [facility] for visit Narrative* Diagnostic Procedure Only (Urgent) - Closed Specialty Diagnoses / Procedures Referred By Contac t Referred To Contact [facility] Diagnoses Lymphadenopathy, cervical Localized enlarged lymph nodes Procedures US HEAD/NECK SOFT TISSUE OTHER US SOFT TISSUE HEAD & NECK REAL TIME IMGE DOCM Alpesh Hill MD [address] [phone] Us Imaging [facility]95 Referral ID Status Reason Start Date Expiration Date V isits Requested Visits Authorized [id number] Closed Auto-Generate d Referral 11/06/2023 12/05/2024 1 1 [facility] for visit Narrative* Diagnostic Procedure Only (Routine) - Closed Specialty Diagnoses / Procedures Referred By Contac t Referred To Contact XR IMAGING Diagnoses Acute bilateral knee pain Procedures XR KNEE GENERAL 4V AP BOTH/PA BOTH/LAT/MERC BILATERAL RADIOLOGIC EXAM KNEE COMPLETE 4/MORE VIEWS Alpesh Hill MD [address] [phone] Xr Imaging [facility]95 Referral ID Status Reason Start Date Expiration Date V isits Requested Visits Authorized [id number] Closed Auto-Generate d Referral 10/15/2022 11/14/2023 1 1 [facility] for visit Narrative* Outpatient Procedure (Routine) - Closed Specialty Diagnoses / Procedures Referred By Contac t Referred To Contact [facility] Diagnoses Pain in both lower extremities Procedures EMG(NEURO/NI) NERVE CONDUCTION STUDIES 9-10 STUDIES Dianelys Reynolds PA-C [address] [place] [address] Phone: tel: fax: Neurology [address] [place] [address] Phone: tel: Referral ID Status Reason Start Date Expiration Date V isits Requested Visits Authorized [id number] Closed Auto-Generate d Referral 07/06/2024 07/06/2025 1 1 [facility] for visit Narrative* MRI/CT (Routine) - Closed Specialty Diagnoses / Procedures Referred By Contac t Referred To Contact MR IMAGING Diagnoses Spinal stenosis of lumbar region, unspecified whether neurogenic claudication present Procedures MRI LUMBAR SPINE WO IVCON MRI SPINAL CANAL LUMBAR W/O CONTRAST MATERIAL Dianelys Reynolds PA-C [address] [place] [address] Phone: tel: fax: [place] [address] Referral ID Status Reason Start Date Expiration Date V isits Requested Visits Authorized [id number] Closed Auto-Generate d Referral 07/06/2024 08/05/2025 1 1 [facility] for visit Narrative* Outpatient Procedure (Routine) - Closed Specialty Diagnoses / Procedures Referred By Contac t Referred To Contact [facility] Diagnoses Seizure (HCC) Procedures EPIL EEG ROUTINE ELECTROENCEPHALOGRAM REC COMA/SLEEP ONLY Kel Joya Jr., MD [address] [place] [address] Phone: tel: fax: Neurology [address] [place] [address] Phone: tel: Referral ID Status Reason Start Date Expiration Date V isits Requested Visits Authorized [id number] Closed Auto-Generate d Referral 06/11/2024 06/11/2025 1 1 [facility] for visit Narrative* Diagnostic Procedure Only (Urgent) - Closed Specialty Diagnoses / Procedures Referred By Contac t Referred To Contact XR IMAGING Diagnoses Foot pain, left Procedures XR FOOT GENERAL 3V AP/LAT/OBL LEFT RADEX FOOT COMPLETE MINIMUM 3 VIEWS Podlogar, LAUREN Trotter.TRANSPLANT COORDINATOR [address] [place] [address] Phone: tel: fax: [place] [address] Referral ID Status Reason Start Date Expiration Date V isits Requested Visits Authorized [id number] Closed Auto-Generate d Referral 09/28/2024 10/28/2025 1 1 [facility] Chief Complaint and Reason for Visit Chief Complaint ABD PAIN Chief Complaint ABD PAIN GALLSTONES Reason for Visit Elevated LFTs Elevated lipase Chief Complaint ABD PAIN GALLSTONES LAP WU GRAMS LAP WU GRAMS Reason for Visit Elevated LFTs Elevated lipase Advance Directives No Advanced Directives Records Found Advance Directive Response Recorded Date/ Time Living Will No December 13 1:48pm Power of Pulp Machine Operator No December 13 1:48pm Advance Directive Response Recorded Date/ Time Living Will No December 28 11:19am Power of Pulp Machine Operator No December 28, 2021 11:19am Family History No Family History Records Found Relationship Condition Age at Onset Recorded Date/T bill father Malignant neoplasm Unknown Hypertension Unknown mother Diabetes mellitus Unknown sister Kidney disorder Unknown Seizure Unknown Reason for Referral Specialty Diagnoses / Procedures Referred By Nicko t Referred To Contact General Surgery Diagnoses BRBPR (bright red blood per rectum) External hemorrhoids Procedures CONSULT TO GENERAL SURGERY OFFICE/OUTPATIENT [facility] 60-74 MINUTES Alpesh Hill MD [address] [phone] Referral ID Status Reason Start Date Expiration Date Visits Requested Visits Authorized [id number] Authorized PCP Requested Referral 07/10/2022 07/10/2023 1 1 Specialty Diagnoses / Procedures Referred By Nicko t Referred To Contact MR IMAGING Diagnoses Positive Romberg test Unsteady gait Dizziness Procedures MRA CAROTID WO IVCON MRA, NECK; W/O CONTRAST Podlogar, Rose Marie, SALES SOLUTIONS REPRESENTATIVE.TRANSPLANT COORDINATOR [address] [place] [address] [place] [address] Referral ID Status Reason Start Date Expiration Date Visits Requested Visits Authorized [id number] Authorized Auto-Generat ed Referral 01/02/2024 01/31/2025 1 1 Specialty Diagnoses / Procedures Referred By Chesterac t Referred To Contact MR IMAGING Diagnoses Positive Romberg test Unsteady gait Dizziness Procedures MRA BRAIN WO IVCON MRA, HEAD W/O CONTRAST Podlogar, Rose Marie, SALES SOLUTIONS REPRESENTATIVE.TRANSPLANT COORDINATOR [address] [place] [address] [place] [address] Referral ID Status Reason Start Date Expiration Date Visits Requested Visits Authorized [id number] Authorized Auto-Generat ed Referral 01/02/2024 01/31/2025 1 1 Specialty Diagnoses / Procedures Referred By Contac t Referred To Contact MR IMAGING Diagnoses Positive Romberg test Unsteady gait Dizziness Procedures MRI BRAIN WO IVCON MRI BRAIN BRAIN STEM W/O CONTRAST MATERIAL Podlogar, Rose Marie, SALES SOLUTIONS REPRESENTATIVE.TRANSPLANT COORDINATOR [address] [place] [address] [place] [address] Referral ID Status Reason Start Date Expiration Date Visits Requested Visits Authorized [id number] Authorized Auto-Generat ed Referral 01/02/2024 01/31/2025 1 1 Specialty Diagnoses / Procedures Referred By Contac t Referred To Contact RADIO MRI [facility] Diagnoses Positive Romberg test Unsteady gait Dizziness Procedures MRA CAROTID WO IVCON MRA, NECK; W/O CONTRAST Podlogar, Rose Marie, SALES SOLUTIONS REPRESENTATIVE.TRANSPLANT COORDINATOR [address] [place] [address] Radio Mri [facility] [address] [place] [address] Referral ID Status Reason Start Date Expiration Date V isits Requested Visits Authorized [id number] Closed Auto-Generate d Referral 01/02/2024 01/31/2025 1 1 Specialty Diagnoses / Procedures Referred By Contac t Referred To Contact RADIO MRI [facility] MOB Diagnoses Positive Romberg test Unsteady gait Dizziness Procedures MRA BRAIN WO IVCON MRA, HEAD W/O CONTRAST Podlogar, Rose Marie, SALES SOLUTIONS REPRESENTATIVE.TRANSPLANT COORDINATOR [address] [place] [address] Radio Mri [facility] [address] [place] [address] Referral ID Status Reason Start Date Expiration Date V isits Requested Visits Authorized [id number] Closed Auto-Generate d Referral 01/02/2024 01/31/2025 1 1 Specialty Diagnoses / Procedures Referred By Contac t Referred To Contact Diagnoses Positive Romberg test Unsteady gait Dizziness Procedures MRI BRAIN WO IVCON MRI BRAIN BRAIN STEM W/O CONTRAST MATERIAL Podlogar, Rose Marie, SALES SOLUTIONS REPRESENTATIVE.TRANSPLANT COORDINATOR [address] [place] [address] [phone] Referral ID Status Reason Start Date Expiration Date V isits Requested Visits Authorized [id number] Closed Auto-Generate d Referral 01/02/2024 01/31/2025 1 1 Specialty Diagnoses / Procedures Referred By Contac t Referred To Contact [facility] Diagnoses Cerebral hemorrhage (HCC) Cognitive decline Cerebral amyloid angiopathy (CODE) Procedures CONSULT TO SPEECH THERAPY OFFICE/OUTPATIENT [facility] 60 MINUTES Kel Joya Jr., MD [address] [place] [address] [address] [facility] [address] [address] Referral ID Status Reason Start Date Expiration Date Visits Requested Visits Authorized [id number] Authorized Auto-Generat ed Referral 04/30/2024 04/30/2025 99 99 Specialty Diagnoses / Procedures Referred By Contac t Referred To Contact [facility] Diagnoses Cognitive decline Balance problems Procedures CONSULT TO PHYSICAL THERAPY PHYSICAL THERAPY EVALUATION HIGH COMPLEX 45 MINS Kel Joya Jr., MD [address] [place] [address] [address] Referral ID Status Reason Start Date Expiration Date Visits Requested Visits Authorized [id number] Authorized PCP Requested Referral Auto-Generate d Referral 04/30/2024 04/30/2025 99 99 Specialty Diagnoses / Procedures Referred By Contac t Referred To Contact Neurology Diagnoses Cerebral hemorrhage (HCC) Abnormal finding on MRI of brain Cognitive decline Cerebral amyloid angiopathy (CODE) Balance problems Procedures CONSULT TO NEUROLOGY OFFICE/OUTPATIENT [facility] 60 MINUTES Kel Joya Jr., MD [address] [place] [id number] Ismael Villavicencio MD [address] [place] [address] Referral ID Status Reason Start Date Expiration Date Visits Requested Visits Authorized [id number] Authorized PCP Requested Referral 04/30/2024 04/30/2025 1 1 Summary Purpose Additional Source Comments Source Comments (unrecognize d section and content) In the event this informatio n is protected by the Federal Confidentiality of Alcohol and Drug Abuse Patient Records regulations: The Federal rules restrict any use of the information to criminally investigate or prosecute any alcohol or drug abuse patient.[facility]In the event this information is protected by the Federal Confidentiality of Alcohol and Drug Abuse Patient Records regulations: The Federal rules restrict any use of the information to criminally investigate or prosecute any alcohol or drug abuse patient.[facility] CenterIn the event this information is protected by the Federal Confidentiality of Alcohol and Drug Abuse Patient Records regulations: The Federal rules restrict any use of the information to criminally investigate or prosecute any alcohol or drug abuse patient.[facility] CenterIn the event this information is protected by the Federal Confidentiality of Alcohol and Drug Abuse Patient Records regulations: The Federal rules restrict any use of the information to criminally investigate or prosecute any alcohol or drug abuse patient.[facility] CenterIn the event this information is protected by the Federal Confidentiality of Alcohol and Drug Abuse Patient Records regulations: The Federal rules restrict any use of the information to criminally investigate or prosecute any alcohol or drug abuse patient.[facility] CenterIn the event this information is protected by the Federal Confidentiality of Alcohol and Drug Abuse Patient Records regulations: The Federal rules restrict any use of the information to criminally investigate or prosecute any alcohol or drug abuse patient.[facility] CenterIn the event this information is protected by the Federal Confidentiality of Alcohol and Drug Abuse Patient Records regulations: The Federal rules restrict any use of the information to criminally investigate or prosecute any alcohol or drug abuse patient.[facility] CenterIn the event this information is protected by the Federal Confidentiality of Alcohol and Drug Abuse Patient Records regulations: The Federal rules restrict any use of the information to criminally investigate or prosecute any alcohol or drug abuse patient.[facility] CenterIn the event this information is protected by the Federal Confidentiality of Alcohol and Drug Abuse Patient Records regulations: The Federal rules restrict any use of the information to criminally investigate or prosecute any alcohol or drug abuse patient.[facility] CenterIn the event this information is protected by the Federal Confidentiality of Alcohol and Drug Abuse Patient Records regulations: The Federal rules restrict any use of the information to criminally investigate or prosecute any alcohol or drug abuse patient.[facility] CenterIn the event this information is protected by the Federal Confidentiality of Alcohol and Drug Abuse Patient Records regulations: The Federal rules restrict any use of the information to criminally investigate or prosecute any alcohol or drug abuse patient.[facility] CenterIn the event this information is protected by the Federal Confidentiality of Alcohol and Drug Abuse Patient Records regulations: The Federal rules restrict any use of the information to criminally investigate or prosecute any alcohol or drug abuse patient.[facility] CenterIn the event this information is protected by the Federal Confidentiality of Alcohol and Drug Abuse Patient Records regulations: The Federal rules restrict any use of the information to criminally investigate or prosecute any alcohol or drug abuse patient.[facility] CenterIn the event this information is protected by the Federal Confidentiality of Alcohol and Drug Abuse Patient Records regulations: The Federal rules restrict any use of the information to criminally investigate or prosecute any alcohol or drug abuse patient.[facility] CenterIn the event this information is protected by the Federal Confidentiality of Alcohol and Drug Abuse Patient Records regulations: The Federal rules restrict any use of the information to criminally investigate or prosecute any alcohol or drug abuse patient.[facility] CenterIn the event this information is protected by the Federal Confidentiality of Alcohol and Drug Abuse Patient Records regulations: The Federal rules restrict any use of the information to criminally investigate or prosecute any alcohol or drug abuse patient.[facility] CenterIn the event this information is protected by the Federal Confidentiality of Alcohol and Drug Abuse Patient Records regulations: The Federal rules restrict any use of the information to criminally investigate or prosecute any alcohol or drug abuse patient.[facility] CenterIn the event this information is protected by the Federal Confidentiality of Alcohol and Drug Abuse Patient Records regulations: The Federal rules restrict any use of the information to criminally investigate or prosecute any alcohol or drug abuse patient.[facility] CenterIn the event this information is protected by the Federal Confidentiality of Alcohol and Drug Abuse Patient Records regulations: The Federal rules restrict any use of the information to criminally investigate or prosecute any alcohol or drug abuse patient.[facility] CenterIn the event this information is protected by the Federal Confidentiality of Alcohol and Drug Abuse Patient Records regulations: The Federal rules restrict any use of the information to criminally investigate or prosecute any alcohol or drug abuse patient.[facility] CenterIn the event this information is protected by the Federal Confidentiality of Alcohol and Drug Abuse Patient Records regulations: The Federal rules restrict any use of the information to criminally investigate or prosecute any alcohol or drug abuse patient.[facility] CenterIn the event this information is protected by the Federal Confidentiality of Alcohol and Drug Abuse Patient Records regulations: The Federal rules restrict any use of the information to criminally investigate or prosecute any alcohol or drug abuse patient.[facility] CenterIn the event this information is protected by the Federal Confidentiality of Alcohol and Drug Abuse Patient Records regulations: The Federal rules restrict any use of the information to criminally investigate or prosecute any alcohol or drug abuse patient.[facility] CenterIn the event this information is protected by the Federal Confidentiality of Alcohol and Drug Abuse Patient Records regulations: The Federal rules restrict any use of the information to criminally investigate or prosecute any alcohol or drug abuse patient.[facility] CenterIn the event this information is protected by the Federal Confidentiality of Alcohol and Drug Abuse Patient Records regulations: The Federal rules restrict any use of the information to criminally investigate or prosecute any alcohol or drug abuse patient.[facility] CenterIn the event this information is protected by the Federal Confidentiality of Alcohol and Drug Abuse Patient Records regulations: The Federal rules restrict any use of the information to criminally investigate or prosecute any alcohol or drug abuse patient.[facility] CenterIn the event this information is protected by the Federal Confidentiality of Alcohol and Drug Abuse Patient Records regulations: The Federal rules restrict any use of the information to criminally investigate or prosecute any alcohol or drug abuse patient.[facility] CenterIn the event this information is protected by the Federal Confidentiality of Alcohol and Drug Abuse Patient Records regulations: The Federal rules restrict any use of the information to criminally investigate or prosecute any alcohol or drug abuse patient.[facility] CenterIn the event this information is protected by the Federal Confidentiality of Alcohol and Drug Abuse Patient Records regulations: The Federal rules restrict any use of the information to criminally investigate or prosecute any alcohol or drug abuse patient.[facility] CenterIn the event this information is protected by the Federal Confidentiality of Alcohol and Drug Abuse Patient Records regulations: The Federal rules restrict any use of the information to criminally investigate or prosecute any alcohol or drug abuse patient.[facility] CenterIn the event this information is protected by the Federal Confidentiality of Alcohol and Drug Abuse Patient Records regulations: The Federal rules restrict any use of the information to criminally investigate or prosecute any alcohol or drug abuse patient.[facility] CenterIn the event this information is protected by the Federal Confidentiality of Alcohol and Drug Abuse Patient Records regulations: The Federal rules restrict any use of the information to criminally investigate or prosecute any alcohol or drug abuse patient.[facility] CenterIn the event this information is protected by the Federal Confidentiality of Alcohol and Drug Abuse Patient Records regulations: The Federal rules restrict any use of the information to criminally investigate or prosecute any alcohol or drug abuse patient.[facility] CenterIn the event this information is protected by the Federal Confidentiality of Alcohol and Drug Abuse Patient Records regulations: The Federal rules restrict any use of the information to criminally investigate or prosecute any alcohol or drug abuse patient.[facility] CenterIn the event this information is protected by the Federal Confidentiality of Alcohol and Drug Abuse Patient Records regulations: The Federal rules restrict any use of the information to criminally investigate or prosecute any alcohol or drug abuse patient.[facility] CenterIn the event this information is protected by the Federal Confidentiality of Alcohol and Drug Abuse Patient Records regulations: The Federal rules restrict any use of the information to criminally investigate or prosecute any alcohol or drug abuse patient.[facility] CenterIn the event this information is protected by the Federal Confidentiality of Alcohol and Drug Abuse Patient Records regulations: The Federal rules restrict any use of the information to criminally investigate or prosecute any alcohol or drug abuse patient.[facility] CenterIn the event this information is protected by the Federal Confidentiality of Alcohol and Drug Abuse Patient Records regulations: The Federal rules restrict any use of the information to criminally investigate or prosecute any alcohol or drug abuse patient.[facility] CenterIn the event this information is protected by the Federal Confidentiality of Alcohol and Drug Abuse Patient Records regulations: The Federal rules restrict any use of the information to criminally investigate or prosecute any alcohol or drug abuse patient.[facility] CenterIn the event this information is protected by the Federal Confidentiality of Alcohol and Drug Abuse Patient Records regulations: The Federal rules restrict any use of the information to criminally investigate or prosecute any alcohol or drug abuse patient.[facility] CenterIn the event this information is protected by the Federal Confidentiality of Alcohol and Drug Abuse Patient Records regulations: The Federal rules restrict any use of the information to criminally investigate or prosecute any alcohol or drug abuse patient.[facility] CenterIn the event this information is protected by the Federal Confidentiality of Alcohol and Drug Abuse Patient Records regulations: The Federal rules restrict any use of the information to criminally investigate or prosecute any alcohol or drug abuse patient.[facility] CenterIn the event this information is protected by the Federal Confidentiality of Alcohol and Drug Abuse Patient Records regulations: The Federal rules restrict any use of the information to criminally investigate or prosecute any alcohol or drug abuse patient.[facility] CenterIn the event this information is protected by the Federal Confidentiality of Alcohol and Drug Abuse Patient Records regulations: The Federal rules restrict any use of the information to criminally investigate or prosecute any alcohol or drug abuse patient.[facility] CenterIn the event this information is protected by the Federal Confidentiality of Alcohol and Drug Abuse Patient Records regulations: The Federal rules restrict any use of the information to criminally investigate or prosecute any alcohol or drug abuse patient.[facility] CenterIn the event this information is protected by the Federal Confidentiality of Alcohol and Drug Abuse Patient Records regulations: The Federal rules restrict any use of the information to criminally investigate or prosecute any alcohol or drug abuse patient.[facility] CenterIn the event this information is protected by the Federal Confidentiality of Alcohol and Drug Abuse Patient Records regulations: The Federal rules restrict any use of the information to criminally investigate or prosecute any alcohol or drug abuse patient.[facility] CenterIn the event this information is protected by the Federal Confidentiality of Alcohol and Drug Abuse Patient Records regulations: The Federal rules restrict any use of the information to criminally investigate or prosecute any alcohol or drug abuse patient.[facility] CenterIn the event this information is protected by the Federal Confidentiality of Alcohol and Drug Abuse Patient Records regulations: The Federal rules restrict any use of the information to criminally investigate or prosecute any alcohol or drug abuse patient.[facility] CenterIn the event this information is protected by the Federal Confidentiality of Alcohol and Drug Abuse Patient Records regulations: The Federal rules restrict any use of the information to criminally investigate or prosecute any alcohol or drug abuse patient.[facility] CenterIn the event this information is protected by the Federal Confidentiality of Alcohol and Drug Abuse Patient Records regulations: The Federal rules restrict any use of the information to criminally investigate or prosecute any alcohol or drug abuse patient.[facility] CenterIn the event this information is protected by the Federal Confidentiality of Alcohol and Drug Abuse Patient Records regulations: The Federal rules restrict any use of the information to criminally investigate or prosecute any alcohol or drug abuse patient.[facility] CenterIn the event this information is protected by the Federal Confidentiality of Alcohol and Drug Abuse Patient Records regulations: The Federal rules restrict any use of the information to criminally investigate or prosecute any alcohol or drug abuse patient.[facility] CenterIn the event this information is protected by the Federal Confidentiality of Alcohol and Drug Abuse Patient Records regulations: The Federal rules restrict any use of the information to criminally investigate or prosecute any alcohol or drug abuse patient.[facility] CenterIn the event this information is protected by the Federal Confidentiality of Alcohol and Drug Abuse Patient Records regulations: The Federal rules restrict any use of the information to criminally investigate or prosecute any alcohol or drug abuse patient.[facility] CenterIn the event this information is protected by the Federal Confidentiality of Alcohol and Drug Abuse Patient Records regulations: The Federal rules restrict any use of the information to criminally investigate or prosecute any alcohol or drug abuse patient.[facility] CenterIn the event this information is protected by the Federal Confidentiality of Alcohol and Drug Abuse Patient Records regulations: The Federal rules restrict any use of the information to criminally investigate or prosecute any alcohol or drug abuse patient.[facility] CenterIn the event this information is protected by the Federal Confidentiality of Alcohol and Drug Abuse Patient Records regulations: The Federal rules restrict any use of the information to criminally investigate or prosecute any alcohol or drug abuse patient.[facility] CenterIn the event this information is protected by the Federal Confidentiality of Alcohol and Drug Abuse Patient Records regulations: The Federal rules restrict any use of the information to criminally investigate or prosecute any alcohol or drug abuse patient.[facility] CenterIn the event this information is protected by the Federal Confidentiality of Alcohol and Drug Abuse Patient Records regulations: The Federal rules restrict any use of the information to criminally investigate or prosecute any alcohol or drug abuse patient.[facility] CenterIn the event this information is protected by the Federal Confidentiality of Alcohol and Drug Abuse Patient Records regulations: The Federal rules restrict any use of the information to criminally investigate or prosecute any alcohol or drug abuse patient.[facility] CenterIn the event this information is protected by the Federal Confidentiality of Alcohol and Drug Abuse Patient Records regulations: The Federal rules restrict any use of the information to criminally investigate or prosecute any alcohol or drug abuse patient.[facility] CenterIn the event this information is protected by the Federal Confidentiality of Alcohol and Drug Abuse Patient Records regulations: The Federal rules restrict any use of the information to criminally investigate or prosecute any alcohol or drug abuse patient.[facility] CenterIn the event this information is protected by the Federal Confidentiality of Alcohol and Drug Abuse Patient Records regulations: The Federal rules restrict any use of the information to criminally investigate or prosecute any alcohol or drug abuse patient.[facility] CenterIn the event this information is protected by the Federal Confidentiality of Alcohol and Drug Abuse Patient Records regulations: The Federal rules restrict any use of the information to criminally investigate or prosecute any alcohol or drug abuse patient.[facility] CenterIn the event this information is protected by the Federal Confidentiality of Alcohol and Drug Abuse Patient Records regulations: The Federal rules restrict any use of the information to criminally investigate or prosecute any alcohol or drug abuse patient.[facility] CenterIn the event this information is protected by the Federal Confidentiality of Alcohol and Drug Abuse Patient Records regulations: The Federal rules restrict any use of the information to criminally investigate or prosecute any alcohol or drug abuse patient.[facility] CenterIn the event this information is protected by the Federal Confidentiality of Alcohol and Drug Abuse Patient Records regulations: The Federal rules restrict any use of the information to criminally investigate or prosecute any alcohol or drug abuse patient.[facility] CenterIn the event this information is protected by the Federal Confidentiality of Alcohol and Drug Abuse Patient Records regulations: The Federal rules restrict any use of the information to criminally investigate or prosecute any alcohol or drug abuse patient.[facility] CenterIn the event this information is protected by the Federal Confidentiality of Alcohol and Drug Abuse Patient Records regulations: The Federal rules restrict any use of the information to criminally investigate or prosecute any alcohol or drug abuse patient.[facility] CenterIn the event this information is protected by the Federal Confidentiality of Alcohol and Drug Abuse Patient Records regulations: The Federal rules restrict any use of the information to criminally investigate or prosecute any alcohol or drug abuse patient.[facility] CenterIn the event this information is protected by the Federal Confidentiality of Alcohol and Drug Abuse Patient Records regulations: The Federal rules restrict any use of the information to criminally investigate or prosecute any alcohol or drug abuse patient.[facility] CenterIn the event this information is protected by the Federal Confidentiality of Alcohol and Drug Abuse Patient Records regulations: The Federal rules restrict any use of the information to criminally investigate or prosecute any alcohol or drug abuse patient.[facility] CenterIn the event this information is protected by the Federal Confidentiality of Alcohol and Drug Abuse Patient Records regulations: The Federal rules restrict any use of the information to criminally investigate or prosecute any alcohol or drug abuse patient.[facility] CenterIn the event this information is protected by the Federal Confidentiality of Alcohol and Drug Abuse Patient Records regulations: The Federal rules restrict any use of the information to criminally investigate or prosecute any alcohol or drug abuse patient.[facility] CenterIn the event this information is protected by the Federal Confidentiality of Alcohol and Drug Abuse Patient Records regulations: The Federal rules restrict any use of the information to criminally investigate or prosecute any alcohol or drug abuse patient.[facility] CenterIn the event this information is protected by the Federal Confidentiality of Alcohol and Drug Abuse Patient Records regulations: The Federal rules restrict any use of the information to criminally investigate or prosecute any alcohol or drug abuse patient.[facility] CenterIn the event this information is protected by the Federal Confidentiality of Alcohol and Drug Abuse Patient Records regulations: The Federal rules restrict any use of the information to criminally investigate or prosecute any alcohol or drug abuse patient.[facility] CenterIn the event this information is protected by the Federal Confidentiality of Alcohol and Drug Abuse Patient Records regulations: The Federal rules restrict any use of the information to criminally investigate or prosecute any alcohol or drug abuse patient.[facility] CenterIn the event this information is protected by the Federal Confidentiality of Alcohol and Drug Abuse Patient Records regulations: The Federal rules restrict any use of the information to criminally investigate or prosecute any alcohol or drug abuse patient.[facility] CenterIn the event this information is protected by the Federal Confidentiality of Alcohol and Drug Abuse Patient Records regulations: The Federal rules restrict any use of the information to criminally investigate or prosecute any alcohol or drug abuse patient.[facility] CenterIn the event this information is protected by the Federal Confidentiality of Alcohol and Drug Abuse Patient Records regulations: The Federal rules restrict any use of the information to criminally investigate or prosecute any alcohol or drug abuse patient.[facility] CenterIn the event this information is protected by the Federal Confidentiality of Alcohol and Drug Abuse Patient Records regulations: The Federal rules restrict any use of the information to criminally investigate or prosecute any alcohol or drug abuse patient.[facility] CenterIn the event this information is protected by the Federal Confidentiality of Alcohol and Drug Abuse Patient Records regulations: The Federal rules restrict any use of the information to criminally investigate or prosecute any alcohol or drug abuse patient.[facility] CenterIn the event this information is protected by the Federal Confidentiality of Alcohol and Drug Abuse Patient Records regulations: The Federal rules restrict any use of the information to criminally investigate or prosecute any alcohol or drug abuse patient.[facility] CenterIn the event this information is protected by the Federal Confidentiality of Alcohol and Drug Abuse Patient Records regulations: The Federal rules restrict any use of the information to criminally investigate or prosecute any alcohol or drug abuse patient.[facility] CenterIn the event this information is protected by the Federal Confidentiality of Alcohol and Drug Abuse Patient Records regulations: The Federal rules restrict any use of the information to criminally investigate or prosecute any alcohol or drug abuse patient.[facility] CenterIn the event this information is protected by the Federal Confidentiality of Alcohol and Drug Abuse Patient Records regulations: The Federal rules restrict any use of the information to criminally investigate or prosecute any alcohol or drug abuse patient.[facility] CenterIn the event this information is protected by the Federal Confidentiality of Alcohol and Drug Abuse Patient Records regulations: The Federal rules restrict any use of the information to criminally investigate or prosecute any alcohol or drug abuse patient.[facility] CenterIn the event this information is protected by the Federal Confidentiality of Alcohol and Drug Abuse Patient Records regulations: The Federal rules restrict any use of the information to criminally investigate or prosecute any alcohol or drug abuse patient.[facility] CenterIn the event this information is protected by the Federal Confidentiality of Alcohol and Drug Abuse Patient Records regulations: The Federal rules restrict any use of the information to criminally investigate or prosecute any alcohol or drug abuse patient.[facility] CenterIn the event this information is protected by the Federal Confidentiality of Alcohol and Drug Abuse Patient Records regulations: The Federal rules restrict any use of the information to criminally investigate or prosecute any alcohol or drug abuse patient.[facility] CenterIn the event this information is protected by the Federal Confidentiality of Alcohol and Drug Abuse Patient Records regulations: The Federal rules restrict any use of the information to criminally investigate or prosecute any alcohol or drug abuse patient.[facility] CenterIn the event this information is protected by the Federal Confidentiality of Alcohol and Drug Abuse Patient Records regulations: The Federal rules restrict any use of the information to criminally investigate or prosecute any alcohol or drug abuse patient.[facility] CenterIn the event this information is protected by the Federal Confidentiality of Alcohol and Drug Abuse Patient Records regulations: The Federal rules restrict any use of the information to criminally investigate or prosecute any alcohol or drug abuse patient.[facility] CenterIn the event this information is protected by the Federal Confidentiality of Alcohol and Drug Abuse Patient Records regulations: The Federal rules restrict any use of the information to criminally investigate or prosecute any alcohol or drug abuse patient.[facility] CenterIn the event this information is protected by the Federal Confidentiality of Alcohol and Drug Abuse Patient Records regulations: The Federal rules restrict any use of the information to criminally investigate or prosecute any alcohol or drug abuse patient.[facility] CenterIn the event this information is protected by the Federal Confidentiality of Alcohol and Drug Abuse Patient Records regulations: The Federal rules restrict any use of the information to criminally investigate or prosecute any alcohol or drug abuse patient.[facility] CenterIn the event this information is protected by the Federal Confidentiality of Alcohol and Drug Abuse Patient Records regulations: The Federal rules restrict any use of the information to criminally investigate or prosecute any alcohol or drug abuse patient.[facility] CenterIn the event this information is protected by the Federal Confidentiality of Alcohol and Drug Abuse Patient Records regulations: The Federal rules restrict any use of the information to criminally investigate or prosecute any alcohol or drug abuse patient.[facility] CenterIn the event this information is protected by the Federal Confidentiality of Alcohol and Drug Abuse Patient Records regulations: The Federal rules restrict any use of the information to criminally investigate or prosecute any alcohol or drug abuse patient.[facility] CenterIn the event this information is protected by the Federal Confidentiality of Alcohol and Drug Abuse Patient Records regulations: The Federal rules restrict any use of the information to criminally investigate or prosecute any alcohol or drug abuse patient.[facility] CenterIn the event this information is protected by the Federal Confidentiality of Alcohol and Drug Abuse Patient Records regulations: The Federal rules restrict any use of the information to criminally investigate or prosecute any alcohol or drug abuse patient.[facility] Reason for Visit (unrecogniz ed section and content) Reason Comments PT Discharge Specialty Diagnoses / Procedures Referred By Contac t Referred To Contact [facility] Diagnoses Spinal stenosis of lumbar region, unspecified whether neurogenic claudication present Pain in both lower extremities Procedures CONSULT TO PHYSICAL THERAPY PHYSICAL THERAPY EVALUATION HIGH COMPLEX 45 MINS Dianelys Reynolds PA-C [address] [phone] Phone: tel: fax: [facility] [address] [place] [address] Referral ID Status Reason Start Date Expiration Date Visits Requested Visits Authorized [id number] Authorized PCP Requested Referral Auto-Generate d Referral 07/06/2024 07/06/2025 99 99 Reason Comments Physical Therapy Reason Comments PT Eval Reason Comments Speech Progress Note Specialty Diagnoses / Procedures Referred By Contac t Referred To Contact SPEECH THERAPY Diagnoses Cerebral hemorrhage (HCC) Cognitive decline Cerebral amyloid angiopathy (CODE) Procedures CONSULT TO SPEECH THERAPY OFFICE/OUTPATIENT [facility] 60 MINUTES Kel Joya Jr., MD [address] [place] [address] Phone: tel: fax: Lenora Moran CCC-PLATE GRAINER APPRENTICE Referral ID Status Reason Start Date Expiration Date Visits Requested Visits Authorized [id number] Authorized Auto-Generat ed Referral 04/30/2024 04/27/2025 99 99 Reason Comments Speech Therapy Specialty Diagnoses / Procedures Referred By Contac t Referred To Contact SPEECH THERAPY Diagnoses Cerebral hemorrhage (HCC) Cognitive decline Cerebral amyloid angiopathy (CODE) Procedures CONSULT TO SPEECH THERAPY OFFICE/OUTPATIENT [facility] 60 MINUTES Kel Joya Jr., MD [address] [place], [place] [id number] Lenora Moran CCC-PLATE GRAINER APPRENTICE Referral ID Status Reason Start Date Expiration Date Visits Requested Visits Authorized [id number] Authorized Auto-Generat ed Referral 04/30/2024 04/27/2025 99 99 Specialty Diagnoses / Procedures Referred By Contac t Referred To Contact PHYSICAL THERAPY Diagnoses Cognitive decline Balance problems Procedures CONSULT TO PHYSICAL THERAPY PHYSICAL THERAPY EVALUATION HIGH COMPLEX 45 MINS Kel Joya Jr., MD [address] [place], [place] [id number] Corrina Jeff PT Referral ID Status Reason Start Date Expiration Date Visits Requested Visits Authorized [id number] Authorized PCP Requested Referral Auto-Generate d Referral 04/30/2024 04/27/2025 99 99 Reason Comments Results labs Reason Comments Recheck 6 months Reason Comments Blood Pressure Check Reason Comments Pain Pt present with abd pain rated 10, x1 day, reported Hx constipation, denied with visit Reason Comments ER F/U Reason Comments EKG results Reason Onset Date Comments Refill Request 01/10/2022 Reason Onset Date Comments Refill Request 06/17/2022 Reason Comments Rectal Problem Hemorrhoids, rectal bleeding, seeing bright red blood Reason Comments Results Reason Comments Consult [facility]PR Specialty Diagnoses / Procedures Referred By Contac t Referred To Contact General Surgery Diagnoses BRBPR (bright red blood per rectum) External hemorrhoids Procedures CONSULT TO GENERAL SURGERY OFFICE/OUTPATIENT [facility] 60-74 MINUTES Alpesh Hill MD [address] [place] [address] Referral ID Status Reason Start Date Expiration Date V isits Requested Visits Authorized [id number] Closed PCP Requested Referral 07/10/2022 07/10/2023 1 1 Reason Comments Pain Reports issues with right knee/leg pain since fall occurred several weeks ago in [place]. Patient wasn't seen for the issue at any point until today. Reason Onset Date Comments Refill Request 10/14/2022 Reason Comments Chest Pain Reports severe chest pain over 29 of October weekend. No issue since. Reason Comments Follow Up Rectal bleeding, see ping Reason Onset Date Comments Refill Request 12/09/2022 Reason Onset Date Comments Refill Request 01/24/2023 Reason Comments Mass Patient felt lump to left lower quadrant a few nights ago Reason Onset Date Comments Refill Request 03/10/2023 Reason Comments Physical Reason Onset Date Comments Refill Request 06/09/2023 Reason Comments unsteady gait Dizziness Lightheaded Tremor Refill Request All meds ordered by PCP need filled Reason Comments Results Patient Update Reason Comments 2 week BP follow up Reason Comments Patient Update Reason Comments Cough X 2 weeks Reason Comments URI Patient reports symp toms have improved.Stated he notices he has an intermittent dry cough that lasts several minutes at times notices especially when he lays down. Follow Up Patient following up d/t symptoms still lingering after completion of medication. Reason Comments Dry Mouth x 2 months, left blanche e chest soreness to touch x 2 months Reason Comments Results, Lab Reason Comments Chest Pain Reason Onset Date Comments Escalation of Care 12/17/2023 Reason Comments BP Check Saw yuan doctor on 12/31/2023 and BP was low 100/62 HR 88. Patients states he's felt dizzy for some time and has been stumbly with his gate. Thinks it could possibly be related to medication. Reason Comments External Referrals/resources MRI, MRAs Reason Onset Date Comments Refill Request 01/19/2024 Reason Comments Sister questions Reason Comments Blood Pressure Check Patient is experien cing lightheadedness and blurry vision on and off. Having increased speech difficulties with stuttering. Specialty Diagnoses / Procedures Referred By Contac t Referred To Contact Diagnoses Positive Romberg test Unsteady gait Dizziness Procedures MRI BRAIN WO IVCON MRI BRAIN BRAIN STEM W/O CONTRAST MATERIAL PodlogarRose Marie APRN.TRANSPLANT COORDINATOR [address] [place] [address] [facility] [address] [place] [phone] Referral ID Status Reason Start Date Expiration Date V isits Requested Visits Authorized [id number] Closed Auto-Generate d Referral 01/02/2024 01/31/2025 1 1 Reason Comments Fax Records Reason Comments Ear Problem Bilateral ear pain x at least [address] Fernandes is out of office x 3 weeks unable to see him. Reason Onset Date Comments Refill Request 03/27/2024 Reason Comments New Patient Evaluation Dizzy, abnormal g ait, MRI/ MRA done 02/05, blurry vision, stutter, words coming out mixed up, trouble looking at words and saying them Specialty Diagnoses / Procedures Referred By Contac t Referred To Contact Neurology Diagnoses Magnetic resonance imaging of brain abnormal Procedures CONSULT TO NEUROLOGY OFFICE/OUTPATIENT [facility] MDM 60 MINUTES Podlogar, LAUREN Trotter.TRANSPLANT COORDINATOR [address] [place] [address] Referral ID Status Reason Start Date Expiration Date V isits Requested Visits Authorized [id number] Closed PCP Requested Referral 02/09/2024 02/08/2025 1 1 Reason Comments Speech Evaluation Reason Comments Follow Up Routine annual check up Specialty Diagnoses / Procedures Referred By Contac t Referred To Contact PHYSICAL THERAPY Diagnoses Cognitive decline Balance problems Procedures CONSULT TO PHYSICAL THERAPY PHYSICAL THERAPY EVALUATION HIGH COMPLEX 45 MINS Kel Joya Jr., MD [address] [place] [id number] Phone: tel: fax: Corrina Jeff, PT Referral ID Status Reason Start Date Expiration Date Visits Requested Visits Authorized [id number] Authorized PCP Requested Referral Auto-Generate d Referral 04/30/2024 04/27/2025 99 99 Reason Comments Speech Therapy Speech Discharge Specialty Diagnoses / Procedures Referred By Nicko t Referred To Contact SPEECH THERAPY Diagnoses Cerebral hemorrhage (HCC) Cognitive decline Cerebral amyloid angiopathy (CODE) Procedures CONSULT TO SPEECH THERAPY OFFICE/OUTPATIENT [facility] 60 MINUTES Kel Joya Jr., MD [address] [place] [address] Phone: tel: fax: Lenora Moran CCC-PLATE GRAINER APPRENTICE Referral ID Status Reason Start Date Expiration Date Visits Requested Visits Authorized [id number] Authorized Auto-Generat ed Referral 04/30/2024 04/27/2025 99 99 Reason Comments New Patient Worsening numbness, weakness in BLE- see mychart 06/2024 Reason Onset Date Comments Refill Request 07/12/2024 Reason Comments PT Progress Note PT Discharge Specialty Diagnoses / Procedures Referred By Nicko t Referred To Contact PHYSICAL THERAPY Diagnoses Cognitive decline Balance problems Procedures CONSULT TO PHYSICAL THERAPY PHYSICAL THERAPY EVALUATION HIGH COMPLEX 45 MINS Kel Joya Jr., MD [address] [place] [address] Phone: tel: fax: Corrina Jeff, PT Referral ID Status Reason Start Date Expiration Date Visits Requested Visits Authorized [id number] Authorized PCP Requested Referral Auto-Generate d Referral 04/30/2024 04/27/2025 99 99 Reason Comments ED Follow-up Reason Comments New Patient Specialty Diagnoses / Procedures Referred By Nicko t Referred To Contact Neurology Diagnoses Cerebral hemorrhage (HCC) Abnormal finding on MRI of brain Cognitive decline Cerebral amyloid angiopathy (CODE) Balance problems Procedures CONSULT TO NEUROLOGY OFFICE/OUTPATIENT NEW HIGH MDM 60 MINUTES Kel Joya Jr., MD [address] [place], [place] [id number] Phone: tel: fax: Ismael Villavicencio MD [address] [place] [address] Phone: tel: fax: Referral ID Status Reason Start Date Expiration Date V isits Requested Visits Authorized [id number] Closed PCP Requested Referral 04/30/2024 04/30/2025 1 1 Reason Comments Foreign Body To left heel, notice d last night. Reason Comments Refill Request Reason Comments New Pain Specialty Diagnoses / Procedures Referred By Nicko lam Referred To Contact Podiatry Diagnoses Foot pain, left Procedures CONSULT TO PODIATRY OFFICE/OUTPATIENT NEW HIGH MDM 60 MINUTES Podlogar, ANAHI Trotter [address] [place] [address] Phone: tel: fax: Referral ID Status Reason Start Date Expiration Date V isits Requested Visits Authorized [id number] Closed PCP Requested Referral 09/28/2024 09/28/2025 1 1 Reason Comments Established Patient Follow up Cerebral h emmorhage-MRI completed Reason Onset Date Comments Results 11/08/2024 Reason Comments F/U 6 months Reason Onset Date Comments Results 11/18/2024 Reason Onset Date Comments Refill Request 01/06/2025 Care Teams (unrecognized sec tion and content) Boom Conveyor Operator Relationship Specialty Start Date End Date Alpesh Hill MD [address] [place], [place] [id number] PCP - General Family Practice 12/01/17 Boom Conveyor Operator Relationship Specialty Start Date End Date Alpesh Hill MD [address] [place], [place] [id number] [phone] PCP - General Family Practice 12/01/17 Boom Conveyor Operator Relationship Specialty Start Date End Date Alpesh Hill MD [address] [place] [address] PCP - General Family Practice 12/01/17 Boom Conveyor Operator Relationship Specialty Start Date End Date Alpesh Hill MD [address] [place] [address] PCP - General Family Practice 12/01/17 Boom Conveyor Operator Relationship Specialty Start Date End Date Alpesh Hill MD [address] [place] [address] PCP - General Family Practice 12/01/17 Boom Conveyor Operator Relationship Specialty Start Date End Date Alpesh Hill MD [address] [place] [address] PCP - General Family Practice 12/01/17 Boom Conveyor Operator Relationship Specialty Start Date End Date Alpesh Hill MD [address] [place] [address] PCP - General Family Practice 12/01/17 Boom Conveyor Operator Relationship Specialty Start Date End Date Alpesh Hill MD [address] [place] [address] PCP - General Family Medicine 12/01/17 Boom Conveyor Operator Relationship Specialty Start Date End Date Alpesh Hill MD [address] [place] [address] PCP - General Family Medicine 12/01/17 Boom Conveyor Operator Relationship Specialty Start Date End Date Alpesh Hill MD [address] [place] [address] PCP - General Family Medicine 12/01/17 Boom Conveyor Operator Relationship Specialty Start Date End Date Alpesh Hill MD [address] [place] [address] PCP - General Family Medicine 12/01/17 Boom Conveyor Operator Relationship Specialty Start Date End Date Alpesh Hill MD [address] [place] [address] PCP - General Family Medicine 12/01/17 Boom Conveyor Operator Relationship Specialty Start Date End Date Alpesh Hill MD [address] [place] [address] PCP - General Family Medicine 12/01/17 Boom Conveyor Operator Relationship Specialty Start Date End Date Alpesh Hill MD [address] [place] [address] PCP - General Family Medicine 12/01/17 Boom Conveyor Operator Relationship Specialty Start Date End Date Alpesh Hill MD [address] [place] [address] PCP - General Family Medicine 12/01/17 Boom Conveyor Operator Relationship Specialty Start Date End Date Alpesh Hill MD [address] [place] [address] PCP - General Family Medicine 12/01/17 Boom Conveyor Operator Relationship Specialty Start Date End Date Alpesh Hill MD [address] [place] [address] PCP - General Family Medicine 12/01/17 Boom Conveyor Operator Relationship Specialty Start Date End Date Alpesh Hill MD [address] [place] [address] PCP - General Family Medicine 12/01/17 Boom Conveyor Operator Relationship Specialty Start Date End Date Alpesh Hill MD [address] [place] [address] PCP - General Family Medicine 12/01/17 Boom Conveyor Operator Relationship Specialty Start Date End Date Alpesh Hill MD [address] [place] [address] PCP - General Family Medicine 12/01/17 Boom Conveyor Operator Relationship Specialty Start Date End Date Alpesh Hill MD [address] [place] [address] PCP - General Family Medicine 12/01/17 Boom Conveyor Operator Relationship Specialty Start Date End Date Alpesh Hill MD [address] [place] [address] PCP - General Family Medicine 12/01/17 Boom Conveyor Operator Relationship Specialty Start Date End Date Alpesh Hill MD [address] [place] [address] PCP - General Family Medicine 12/01/17 Boom Conveyor Operator Relationship Specialty Start Date End Date Alpesh Hill MD [address] [place] [address] PCP - General Family Medicine 12/01/17 Boom Conveyor Operator Relationship Specialty Start Date End Date Alpesh Hill MD [address] [place] [address] PCP - General Family Medicine 12/01/17 Boom Conveyor Operator Relationship Specialty Start Date End Date Alpesh Hill MD [address] [place] [address] PCP - General Family Medicine 12/01/17 Boom Conveyor Operator Relationship Specialty Start Date End Date Alpesh Hill MD [address] [place] [address] PCP - General Family Medicine 12/01/17 Boom Conveyor Operator Relationship Specialty Start Date End Date Alpesh Hill MD [address] [place] [address] PCP - General Family Medicine 12/01/17 Boom Conveyor Operator Relationship Specialty Start Date End Date Alpesh Hill MD [address] [place] [address] PCP - General Family Medicine 12/01/17 Boom Conveyor Operator Relationship Specialty Start Date End Date Alpesh Hill MD [address] [place] [address] PCP - General Family Medicine 12/01/17 Boom Conveyor Operator Relationship Specialty Start Date End Date Alpesh Hill MD [address] [place] [address] PCP - General Family Medicine 12/01/17 Boom Conveyor Operator Relationship Specialty Start Date End Date Alpesh Hill MD [address] [place] [address] PCP - General Family Medicine 12/01/17 Boom Conveyor Operator Relationship Specialty Start Date End Date Alpesh Hill MD [address] [place] [address] PCP - General Family Medicine 12/01/17 Boom Conveyor Operator Relationship Specialty Start Date End Date Alpesh Hill MD [address] [place] [address] PCP - General Family Medicine 12/01/17 Boom Conveyor Operator Relationship Specialty Start Date End Date Alpesh Hill MD [address] [place] [address] PCP - General Family Medicine 12/01/17 Boom Conveyor Operator Relationship Specialty Start Date End Date Alpesh Hill MD [address] [place] [address] PCP - General Family Medicine 12/01/17 Boom Conveyor Operator Relationship Specialty Start Date End Date Alpesh Hill MD [address] [place] [address] PCP - General Family Medicine 12/01/17 Boom Conveyor Operator Relationship Specialty Start Date End Date Alpesh Hill MD [address] [place] [address] PCP - General Family Medicine 12/01/17 Boom Conveyor Operator Relationship Specialty Start Date End Date Alpesh Hill MD [address] [place] [address] PCP - General Family Medicine 12/01/17 Boom Conveyor Operator Relationship Specialty Start Date End Date Alpesh Hill MD [address] [place] [address] PCP - General Family Medicine 12/01/17 Podlogar, ANA TrotterN.TRANSPLANT COORDINATOR [address] [place] [address] Psychotherapist Social Worker Family Medicine 04/03/24 Boom Conveyor Operator Relationship Specialty Start Date End Date Alpesh Hill MD [address] [place] [address] PCP - General Family Medicine 12/01/17 Podlogar, Rose Marie, SALES SOLUTIONS REPRESENTATIVE.TRANSPLANT COORDINATOR [address] [place] [address] Psychotherapist Social Worker Family Medicine 04/03/24 Boom Conveyor Operator Relationship Specialty Start Date End Date Alpesh Hill MD [address] [place] [address] PCP - General Family Medicine 12/01/17 Podlogar, Rose Marie SALES SOLUTIONS REPRESENTATIVE.TRANSPLANT COORDINATOR [address] [place] [address] Psychotherapist Social Worker Family Medicine 04/03/24 Boom Conveyor Operator Relationship Specialty Start Date End Date Alpesh Hill MD [address] [place] [address] PCP - General Family Medicine 12/01/17 Podlogar, Rose Marie SALES SOLUTIONS REPRESENTATIVE.TRANSPLANT COORDINATOR [address] [place] [address] Psychotherapist Social Worker Family Medicine 04/03/24 Boom Conveyor Operator Relationship Specialty Start Date End Date Alpesh Hill MD [address] [place] [address] PCP - General Family Medicine 12/01/17 Podlogar, Rose Marie, SALES SOLUTIONS REPRESENTATIVE.TRANSPLANT COORDINATOR [address] [place] [address] Psychotherapist Social Worker Family Medicine 04/03/24 Boom Conveyor Operator Relationship Specialty Start Date End Date Alpesh Hill MD [address] [place] [address] PCP - General Family Medicine 12/01/17 Podlogar, Rose Marie, SALES SOLUTIONS REPRESENTATIVE.TRANSPLANT COORDINATOR [address] [place] [address] Psychotherapist Social Worker Family Medicine 04/03/24 Boom Conveyor Operator Relationship Specialty Start Date End Date Alpesh Hill MD [address] [place] [address] PCP - General Family Medicine 12/01/17 Podlogar, Rose Marie, SALES SOLUTIONS REPRESENTATIVE.TRANSPLANT COORDINATOR [address] [place] [address] Psychotherapist Social Worker Family Medicine 04/03/24 Boom Conveyor Operator Relationship Specialty Start Date End Date Alpesh Hill MD [address] [place] [address] PCP - General Family Medicine 12/01/17 Podlogar, Rose Marie, SALES SOLUTIONS REPRESENTATIVE.TRANSPLANT COORDINATOR [address] [place] [address] Psychotherapist Social Worker Family Medicine 04/03/24 Boom Conveyor Operator Relationship Specialty Start Date End Date Alpesh Hill MD [address] [place] [address] PCP - General Family Medicine 12/01/17 Podlogar, Rose Marie, SALES SOLUTIONS REPRESENTATIVE.TRANSPLANT COORDINATOR [address] [place] [address] Psychotherapist Social Worker Family Medicine 04/03/24 Boom Conveyor Operator Relationship Specialty Start Date End Date Alpesh Hill MD [address] [place] [address] PCP - General Family Medicine 12/01/17 Podlogar, Rose Marie, SALES SOLUTIONS REPRESENTATIVE.TRANSPLANT COORDINATOR [address] [place] [address] Psychotherapist Social Worker Family Medicine 04/03/24 Boom Conveyor Operator Relationship Specialty Start Date End Date Alpesh Hill MD [address] [place] [address] PCP - General Family Medicine 12/01/17 Podlogar, LAUREN Trotter.TRANSPLANT COORDINATOR [address] [facility] [place] [address] Psychotherapist Social Worker Family Medicine 04/03/24 Boom Conveyor Operator Relationship Specialty Start Date End Date Alpesh Hill MD [address] [place] [address] PCP - General Family Medicine 12/01/17 Podlogar, LAUREN Trotter.TRANSPLANT COORDINATOR [address] [place] [address] Psychotherapist Social Worker Family Medicine 04/03/24 Boom Conveyor Operator Relationship Specialty Start Date End Date Alpesh Hill MD [address] [place] [address] PCP - General Family Medicine 12/01/17 Podlogar, Rose Marie, SALES SOLUTIONS REPRESENTATIVE.TRANSPLANT COORDINATOR [address] [place] [address] Psychotherapist Social Worker Family Medicine 04/03/24 Boom Conveyor Operator Relationship Specialty Start Date End Date Alpesh Hill MD [address] [place] [address] PCP - General Family Medicine 12/01/17 Podlogar, LAUREN Trotter.TRANSPLANT COORDINATOR [address] [place] [address] Psychotherapist Social Worker Family Medicine 04/03/24 Boom Conveyor Operator Relationship Specialty Start Date End Date Alpesh Hill MD [address] [place] [address] PCP - General Family Medicine 12/01/17 PodlogRose Marie israel APRN.TRANSPLANT COORDINATOR [address] [place] [address] Psychotherapist Social Worker Family Medicine 04/03/24 Boom Conveyor Operator Relationship Specialty Start Date End Date Alpesh Hill MD [address] [place] [address] PCP - General Family Medicine 12/01/17 PodlogarRose Marie APRN.TRANSPLANT COORDINATOR [address] [place] [address] Psychotherapist Social Worker Family Medicine 04/03/24 Analisa Sprague APRN.TRANSPLANT COORDINATOR [address] [place] [address] Psychotherapist Social Worker Family Medicine 07/09/24 Boom Conveyor Operator Relationship Specialty Start Date End Date Alpesh Hill MD [address] [place] [address] PCP - General Family Medicine 12/01/17 PodlogarRose Marie APRN.TRANSPLANT COORDINATOR [address] [place] [address] Psychotherapist Social Worker Family Medicine 04/03/24 Analisa Sprague APRN.TRANSPLANT COORDINATOR [address] [place] [address] Psychotherapist Social Worker Family Medicine 07/09/24 Boom Conveyor Operator Relationship Specialty Start Date End Date Alpesh Hill MD [address] [place] [address] PCP - General Family Medicine 12/01/17 PodlogarRose Marie APRN.TRANSPLANT COORDINATOR [address] [place] [address] Psychotherapist Social Worker Family Medicine 04/03/24 Analisa Sprague APRN.TRANSPLANT COORDINATOR [address] [place] [address] Psychotherapist Social Worker Family Medicine 07/19/24 Boom Conveyor Operator Relationship Specialty Start Date End Date Alpesh Hill MD [address] [place] [address] PCP - General Family Medicine 12/01/17 PodlogarRose Marie APRN.TRANSPLANT COORDINATOR [address] [place] [address] Psychotherapist Social Worker Family Medicine 04/03/24 Analisa Sprague APRN.TRANSPLANT COORDINATOR [address] [place] [address] Psychotherapist Social Worker Family [facility] 07/19/24 Boom Conveyor Operator Relationship Specialty Start Date End Date Alpesh Hill MD [address] [place] [address] PCP - General Family Medicine 12/01/17 PodlogarRose Marie SALES SOLUTIONS REPRESENTATIVE.TRANSPLANT COORDINATOR [address] [place] [address] Psychotherapist Social Worker Family Medicine 04/03/24 Analisa Sprague SALES SOLUTIONS REPRESENTATIVE.TRANSPLANT COORDINATOR [address] [place] [address] [facility]/24 Boom Conveyor Operator Relationship Specialty Start Date End Date Alpesh Hill MD [address] [place] [address] PCP - General Family Medicine 12/01/17 Podlogar, ANA TrotterN.TRANSPLANT COORDINATOR [address] [place] [address] Psychotherapist Social Worker Family Medicine 04/03/24 Analisa Sprague APRN.TRANSPLANT COORDINATOR [address] [place] [address] [facility] 07/19/24 Boom Conveyor Operator Relationship Specialty Start Date End Date Alpesh Hill MD [address] [place] [address] PCP - General Family Medicine 12/01/17 Podlogar, Rose Marie SALES SOLUTIONS REPRESENTATIVE.TRANSPLANT COORDINATOR [address] [place] [address] Psychotherapist Social Worker Family Medicine 04/03/24 Analisa Sprague SALES SOLUTIONS REPRESENTATIVE.TRANSPLANT COORDINATOR [address] [place] [address] [facility] 07/19/24 Boom Conveyor Operator Relationship Specialty Start Date End Date Alpesh Hill MD [address] [place] [address] PCP - General Family Medicine 12/01/17 Podlogar, Rose Marie SALES SOLUTIONS REPRESENTATIVE.TRANSPLANT COORDINATOR [address] [place] [address] [facility] 04/03/24 Analisa Sprague SALES SOLUTIONS REPRESENTATIVE.TRANSPLANT COORDINATOR [address] [place] [address] [facility] 07/19/24 Boom Conveyor Operator Relationship Specialty Start Date End Date Alpesh Hill MD [address] [place] [address] PCP - General Family Medicine 12/01/17 Podlogar, Rose Marie SALES SOLUTIONS REPRESENTATIVE.TRANSPLANT COORDINATOR [address] [place] [address] [facility] Medicine 04/03/24 Analisa Sprague SALES SOLUTIONS REPRESENTATIVE.TRANSPLANT COORDINATOR [address] [place] [address] [facility] 07/19/24 Boom Conveyor Operator Relationship Specialty Start Date End Date Alpesh Hill MD [address] [place] [address] PCP - General Family Medicine 12/01/17 Podlogar, Rose Marie SALES SOLUTIONS REPRESENTATIVE.TRANSPLANT COORDINATOR [address] [place] [address] [facility] Medicine 04/03/24 Analisa Sprague, SALES SOLUTIONS REPRESENTATIVE.TRANSPLANT COORDINATOR [address] [place] [address] [facility] 07/19/24 Boom Conveyor Operator Relationship Specialty Start Date End Date Alpesh Hill MD [address] [place] [address] PCP - General Family Medicine 12/01/17 Podlogar, Rose Marie, SALES SOLUTIONS REPRESENTATIVE.TRANSPLANT COORDINATOR [address] [place] [address] Psychotherapist Social Worker Family Medicine 04/03/24 Analisa Sprague APRN.TRANSPLANT COORDINATOR [address] [place] [address] Psychotherapist Social Worker Family Medicine 07/09/24 07/18/24 Boom Conveyor Operator Relationship Specialty Start Date End Date Alpesh Hill MD [address] [place] [address] PCP - General Family Medicine 12/01/17 PodlogarRose Marie APRN.TRANSPLANT COORDINATOR [address] [place] [address] Psychotherapist Social Worker Family Medicine 04/03/24 Analisa Sprague SALES SOLUTIONS REPRESENTATIVE.TRANSPLANT COORDINATOR [address] [place] [address] Psychotherapist Social Worker Family Medicine 07/19/24 Boom Conveyor Operator Relationship Specialty Start Date End Date Alpesh Hill MD [address] [place] [address] PCP - General Family Medicine 12/01/17 PodlogarRose Marie SALES SOLUTIONS REPRESENTATIVE.TRANSPLANT COORDINATOR [address] [place] [address] Psychotherapist Social Worker Family Medicine 04/03/24 Analisa Sprague APRN.TRANSPLANT COORDINATOR [address] [place] [address] Psychotherapist Social Worker Family Medicine 07/19/24 Boom Conveyor Operator Relationship Specialty Start Date End Date Alpesh Hill MD [address] [place] [address] PCP - General Family Medicine 12/01/17 PodlogarRose Marie APRN.TRANSPLANT COORDINATOR [address] [place] [address] Psychotherapist Social Worker Family Medicine 04/03/24 Analisa Sprague APRN.TRANSPLANT COORDINATOR [address] [place] [address] Psychotherapist Social Worker Family Medicine 07/19/24 09/12/24 Boom Conveyor Operator Relationship Specialty Start Date End Date Alpesh Hill MD [address] [place] [address] PCP - General Family Medicine 12/01/17 PodlogarRose Marie APRN.TRANSPLANT COORDINATOR [address] [place] [address] Psychotherapist Social Worker Family Medicine 04/03/24 Boom Conveyor Operator Relationship Specialty Start Date End Date Alpesh Hill MD [address] [place] [address] PCP - General Family Medicine 12/01/17 PodlogarRose Marie APRN.TRANSPLANT COORDINATOR [address] [place] [address] Psychotherapist Social Worker Family Medicine 04/03/24 Boom Conveyor Operator Relationship Specialty Start Date End Date Alpesh Hill MD [address] [place] [address] PCP - General Family Medicine 12/01/17 PodlogarRose Marie APRN.TRANSPLANT COORDINATOR [address] [place] [address] Psychotherapist Social Worker Family [facility] 04/03/24 Boom Conveyor Operator Relationship Specialty Start Date End Date Alpesh Hill MD [address] [place] [address] PCP - General Family Medicine 12/01/17 Podlogar, LAUREN Trotter.TRANSPLANT COORDINATOR [address] [place] [address] Psychotherapist Social Worker Family Medicine 04/03/24 Analisa Sprague APRN.TRANSPLANT COORDINATOR [address] [place] [address] [facility]/07/24 Boom Conveyor Operator Relationship Specialty Start Date End Date Alpesh Hill MD [address] [place] [address] PCP - General Family Medicine 12/01/17 PodlogarRose Marie APRN.TRANSPLANT COORDINATOR [address] [place] [address] Psychotherapist Social Worker Family Medicine 04/03/24 Analisa Sprague SALES SOLUTIONS REPRESENTATIVE.TRANSPLANT COORDINATOR [address] [place] [address] [facility] 10/07/24 Boom Conveyor Operator Relationship Specialty Start Date End Date Alpesh Hill MD [address] [place] [address] PCP - General Family Medicine 12/01/17 Podlogar, Rose Marie SALES SOLUTIONS REPRESENTATIVE.TRANSPLANT COORDINATOR [address] [place] [address] Psychotherapist Social Worker Family Medicine 04/03/24 Analisa Sprague APRN.TRANSPLANT COORDINATOR [address] [place] [address] [facility] 10/07/24 Boom Conveyor Operator Relationship Specialty Start Date End Date Alpesh Hill MD [address] [place] [address] PCP - General Family Medicine 12/01/17 PodlogarRose Marie APRN.TRANSPLANT COORDINATOR [address] [place] [address] [facility] 04/03/24 Analisa Sprague SALES SOLUTIONS REPRESENTATIVE.TRANSPLANT COORDINATOR [address] [place] [address] [facility] 10/07/24 Boom Conveyor Operator Relationship Specialty Start Date End Date Alpesh Hill MD [address] [place] [address] PCP - General Family Medicine 12/01/17 PodlogarRose Marie SALES SOLUTIONS REPRESENTATIVE.TRANSPLANT COORDINATOR [address] [place] [address] [facility] 04/03/24 Analisa Sprague SALES SOLUTIONS REPRESENTATIVE.TRANSPLANT COORDINATOR [address] [place] [address] [facility] 10/07/24 Boom Conveyor Operator Relationship Specialty Start Date End Date Alpesh Hill MD [address] [place] [address] PCP - General Family Medicine 12/01/17 PodlogarRose Marie APRN.TRANSPLANT COORDINATOR [address] [place], [place] [address] [facility] 04/03/24 Analisa Sprague APRN.TRANSPLANT COORDINATOR [address] [facility], [place] [address] [facility] 10/07/24 Boom Conveyor Operator Relationship Specialty Start Date End Date Alpesh Hill MD [address] [place], [place] [id number] PCP - General [facility] Medicine 12/01/17 PodlogarRose Marie APRN.TRANSPLANT COORDINATOR [address] [place], [place] [address] [facility] 04/03/24 Analisa Sprague APRN.TRANSPLANT COORDINATOR [address] [facility], [place] [address] [facility] 10/07/24 Goals (unrecognized section and content) Goals may be documented in a n alternate sectionGoals may be documented in an alternate section (unrecognized sect ion and content) No Status Records FoundNo Status Records FoundNo Status Records Found INFORMATION SOURCE (unrecogn ized section and content) DATE CREATED AUTHOR 08/04/2024 [facility] DATE CREATED AUTHOR AUTHOR'S ORGANIZ ATION 02/14/2025 [facility] DATE CREATED AUTHOR AUTHOR'S ORGANIZ ATION 03/08/2025 [facility] FOR RECORDS PERTAINING TO PATIENTS WHO ARE OR HAVE BEEN ENROLLED IN A CHEMICAL DEPENDENCY/SUBSTANCEABUSE PROGRAM, SOME INFORMATION MAY BE OMITTED. This clinical summary was aggregated from multiple sources. Caution should be exercised in using it in the provision of clinical care. This summary normalizes information from multiple sources, and as a consequence, information in this document may materially change the coding, format and clinical context of patient data. In addition, data may be omitted in some cases. CLINICAL DECISIONS SHOULD BE BASED ON THE PRIMARY CLINICAL RECORDS. [facility] provides no warranty or guarantee of the accuracy or completeness of information in this document.
== END | disposition home or self-care (01) ==
LOC: SL 20:03
PROVIDERS: PCP Family Medicine; Referring Provider Psychiatry & Neurology Sleep Medicine; Visit Provider Psychiatry & Neurology Sleep Medicine
DX: G47.30 Sleep apnea, unspecified (principal); G47.10 Hypersomnia, unspecified; R41.89 Other symptoms and signs involving cognitive functions and awareness; R06.83 Snoring
CPT/HCPCS: 95810; 95811